=== PATIENT | male | born 1935 | race Caucasian/White ===

== ENCOUNTER 2016-11-29 07:40 | Day surgery (SDC) | payer MEDICARE ==
[~2016-11-29] VITALS: Ht 188 cm; Wt 93.2 kg
[~2016-11-29 07:40] MED LIST: ACAR100T PO; AMIT25TA9 PO; ATOR40TA16 PO; BYST10TA2 PO; DICL75TA PO; DIGO0.25 PO; FENO160T PO; FINA5TAB2 PO; FLUT1SPR5 EACH NARE; LISI-515 PO; LORA2TAB7 PO; MICO1POW14 TOPICAL; OMEP40CA2 PO; POTA10TA8 PO; TORS20TA PO; TRAZ100T4 PO; WARF-20 PO
[2016-11-29 08:13] VITALS: BP 160/72; PULSE 70; RESP 18; TEMP 97.9; O2SAT 94
[2016-11-29 08:26] LABS: AUTOMATED NEUTROPHIL # 5.9 TH/MM3 (1.8-7.7); BASOPHIL # 0.1 TH/MM3 (0-0.2); BASOPHIL % 1.1 % (0.0-2.0); EOSINOPHIL # 0.2 TH/MM3 (0-0.4); EOSINOPHIL % 2.4 % (0.0-4.0); HEMATOCRIT 38.7 % (39.0-51.0); HEMO FLAGS DIFF FINAL; LYMPH % 7.3 % (9.0-44.0); LYMPHOCYTE # 0.5 TH/MM3 (1.0-4.8); MEAN CELL VOLUME 83.9 FL (80.0-100.0); MEAN CORPUSCULAR HEMOGLOBIN 28.9 PG (27.0-34.0); MEAN CORPUSCULAR HGB CONC 34.5 % (32.0-36.0); MONO % 6.9 % (0.0-8.0); NEUT % 82.3 % (16.0-70.0); PLATELET COUNT 385 TH/MM3 (150-450); RED BLOOD COUNT 4.61 MIL/MM3 (4.50-5.90); RED CELL DISTRIBUTION WIDTH 14.9 % (11.6-17.2); WHITE BLOOD COUNT 7.2 TH/MM3 (4.0-11.0)
[2016-11-29] MEDS ORDERED: HYDR-3516 PO (08:26)
[2016-11-29] MEDS ORDERED: DULA0.5I SQ (08:26)
[2016-11-29] MEDS ORDERED: AZEL1POW (08:26)
[2016-11-29] MEDS ORDERED: AMOX500C PO (08:26)
[2016-11-29] MEDS ORDERED: VITA500030 CHEW (08:26)
[2016-11-29] MEDS ORDERED: FISHCAP4 PO (08:26)
[2016-11-29] MEDS ORDERED: VITA100T15 PO (08:26)
[2016-11-29] MEDS ORDERED: BACTOIN EACH NARE (08:26)
[2016-11-29] MEDS ORDERED: LACTATED RINGER'S 1000 ML IV PRN (08:30)
[2016-11-29] MEDS ORDERED: POVIDONE IODINE 5% (ANTISEPSIS KIT) 4 APPLICATIONS EACH NARE SCH (08:30)
[2016-11-29] MEDS ORDERED: CHLORHEXIDINE GLUCONATE 2 % 1 PACK (2 CLOTHS) TOPICAL SCH (08:30)
[2016-11-29] MEDS ORDERED: SODIUM CHLORID 0.9% 500 ML IV PRN (08:30)
[2016-11-29] MEDS ORDERED: ceFAZolin 2 GM PREMIX 50 ML IV SCH (08:30)
[2016-11-29] MEDS ORDERED: NS 1000 ML IV SCH (08:30)
[2016-11-29] MEDS ORDERED: VANCOMYCIN 1000 MG/NS 250 ML IV SCH ×2 (08:30)
[2016-11-29] MEDS ORDERED: MUPIROCIN 2% OINT 1 APPLIC/GM SYR NASAL SCH (08:30)
[2016-11-29] MEDS ORDERED: INSULIN HUMAN REGULAR 1,000 UNITS/10 ML VIAL SQ PRN (08:30)
[2016-11-29] MEDS ORDERED: METOPROLOL TARTRATE 25 MG TAB PO PRN (08:30)
[2016-11-29 08:33] LABS: APTT (PATIENT) 35.6 SEC (24.3-30.1); PROTHROMBIN TIME - PATIENT 22.9 SEC (9.8-11.6)
[2016-11-29] MEDS ORDERED: GLIP10TA6 PO (08:33)
[2016-11-29] MEDS ORDERED: PROPOFOL 200 MG/20 ML AMP IV ONE (10:40)
[2016-11-29] MEDS ORDERED: LIDOCAINE HCL 2% 50 ML VIAL ONE (10:42)
[2016-11-29] MEDS ORDERED: VANCOMYCIN 500 MG VIAL ONE (10:42)
[2016-11-29] MEDS ORDERED: MIDAZOLAM HCL 2 MG/2 ML VIAL ONE (10:49)
[2016-11-29] MEDS ORDERED: CEPH-460 PO (11:37)
[2016-11-29] MEDS ORDERED: ACETAMINOPHEN/CODEINE 300 MG/30 MG TAB PO PRN ×2 (11:45)
[2016-11-29] MEDS ORDERED: ONDANSETRON HCL 4 MG/2 ML VIAL IV PRN (11:45)
[2016-11-29] MEDS ORDERED: DO NOT ADM ANY ANTICOAGULANT DRUGS PRN (12:30)
--- NOTE | 2016-11-29 14:32 | EKG ---
Date Performed: 11/29/2016 Time Performed: 08:22:00 PTAGE: 81 years EKG: Pace ventricular rhythm with underlying atrial fibrillation No significant change since the prior tracing. Abnormal ECG PREVIOUS TRACING : 09/15/2015 11.07 DOCTOR: Sydnee Mills Interpretating Date/Time 11/29/2016 14:31:07
--- NOTE | 2016-11-30 19:12 | MP ---
cc: BLAKE ROSS M.D. DATE OF SURGERY 11/29/16 PROCEDURE Biventricular pacer defibrillator removal, biventricular pacer defibrillator replacement and device testing. HISTORY Mr. Sanon is an 81-year-old gentleman with congestive heart failure, cardiomyopathy, previous biventricular pacer defibrillator implanted 2010, generator currently end of life admitted for generator replacement and device testing. This is for secondary prevention. The patient has previous episode of ventricular tachycardia requiring defibrillatory shock. The risks, the nature and the benefit of the procedure are clearly stated to him. Risks include pneumothorax, cardiac perforation, stroke, need for open heart surgery and even . The patient understood and agreed to proceed. PROCEDURE IN DETAIL After written informed consent was obtained, the patient was brought to the EP lab where he was prepped and draped in the usual sterile fashion. Conscious sedation was initiated and maintained throughout the procedure by anesthesiologist. Once sedation verified, the left infraclavicular area was anesthetized with 2% Xylocaine. Using the plasma blade, a 3-cm incision was made over the existing generator. Dissection was then taken down to deep fascial layer using Bovie cautery and blunt dissection. Once exposed generator was removed from the pocket scar tissue was removed around the lead, pocket was expanded, pocket revision was performed. Then the lead was disconnected from the generator and tested. After adequate pacing threshold obtained, the pocket was copiously irrigated with antibiotic solution. The leads were connected to the new generator and placed into the pocket. I did proceed with device testing. Initial induction course of T-wave shock which induced ventricular fibrillation which was adequately detected and treated by the IC generator delivering a 20 joule defibrillatory shock converting the patient back into sinus rhythm. Shocking impedance was 42 ohms, charge time 3.4 seconds. At that point, NIPS was complete. I did proceed with wound closure. The deep fascial layer was approximated with 2-0 Vicryl suture in a continuous fashion. The subcutaneous layer was approximated using 2-0 Vicryl suture in a continuous fashion. The subcuticular layer was approximated using the 2-0 Vicryl suture in a continuous fashion. Dermabond adhesive was applied to the wound followed by a sterile pressure dressing. There was no complication. The patient tolerated procedure. Blood loss minimal. EXPLANTED HARDWARE The explanted biventricular pacer defibrillator is a [employer] model number #[id number], serial #[id number]. That was implanted in July 2011. IMPLANTED HARDWARE The implanted biventricular pacer defibrillator is a [employer] model number [id number]!. Serial #[id number]. THRESHOLD The right atrial pacing threshold in bipolar mode cannot be measured. The patient in atrial fibrillation, lead impedance 540 ohms, T-wave at 0.5 mV. The right ventricle pacing threshold bipolar mode was 0.75 volts at 0.5 milliseconds, lead impedance 450 ohms, R-wave at 12 mV. The left ventricular pacing threshold in bipolar mode was one volt at 0.5 milliseconds. Lead impedance 250 ohms. The right ventricular defibrillatory threshold less than or equal to 20 joules. Shocking impedance 42 ohms, charge time 3.4 seconds. SETTING The device set in VVIR 70, upper limit 110 beats per minute. LV first by 40 milliseconds. Defibrillatory portion for two zones one zone for ventricular tachycardia between 162-240 beats per minute. Atrial therapy consisted of one burst of ATP one ramp 81% pulse ___ followed by 20 then 30 and all subsequent shocks at 40 joule defibrillatory shock. Second zone for ventricular fibrillation above 240 beats per minute. First therapy at 30 and all subsequent shocks at 40 joule defibrillatory shock. CONCLUSION Successful biventricular pacer defibrillator removal, biventricular pacer defibrillator replacement and device testing, RECOMMENDATIONS The patient is going to be transferred to the telemetry unit. Will be observed. When stable can be discharged home. MD SARA White/ /11:33 AM /7:01 PM
[2017-01-07] MEDS ORDERED: GABA300C5 PO (10:53)
[2017-01-07] MEDS ORDERED: CLOB-23 TOPICAL (10:53)
== END 2016-11-29 13:24 | disposition home or self-care (01) ==
LOC: HDOC 07:40 → HDIC 07:41 → HDOC 13:24
PROVIDERS: ATTEND Internal Medicine Interventional Cardiology
DX: Z45.02 Encounter for adjustment and management of automatic implantable cardiac defibrillator (principal); I11.0 Hypertensive heart disease with heart failure; I50.30 Unspecified diastolic (congestive) heart failure; I49.5 Sick sinus syndrome; I48.0 Paroxysmal atrial fibrillation; I25.10 Atherosclerotic heart disease of native coronary artery without angina pectoris; E11.59 Type 2 diabetes mellitus with other circulatory complications; J44.9 Chronic obstructive pulmonary disease, unspecified; Z79.01 Long term (current) use of anticoagulants
CPT/HCPCS: 00530; 33264; 80048; 85025; 85610; 85730; 93005; 93641; C1882; J0690; J2250; J3010; J3370; J7050

== ENCOUNTER 2017-01-07 10:18 | Emergency (ER) | payer MEDICARE ==
[~2017-01-07] VITALS: Ht 188 cm; Wt 95.0 kg
[~2017-01-07 10:18] MED LIST changes: +AMOX500C PO; +AZEL1POW; +BACTOIN EACH NARE; +CEPH-460 PO; -DICL75TA PO; +DULA0.5I SQ; +FISHCAP4 PO; +GLIP10TA6 PO; +HYDR-3516 PO; -MICO1POW14 TOPICAL; +VITA100T15 PO; +VITA500030 CHEW
[2017-01-07 10:20] VITALS: BP 133/61; PULSE 70; RESP 22; TEMP 97.9; O2SAT 84
[2017-01-07] MEDS ORDERED: CLOB-23 TOPICAL ×2 (10:53)
[2017-01-07] MEDS ORDERED: GABA300C5 PO ×2 (10:53)
[2017-01-07 10:55] VITALS: RESP 18; O2SAT 98
[2017-01-07] MEDS ORDERED: SODIUM CHLORIDE 0.9% FLUSH 10 ML FLUSH IVF PRN (11:00)
--- NOTE | 2017-01-07 11:05 | PD ---
HPI Chief Complaint: Respiratory Symptoms Time Seen by Provider: 10:42 Travel History International Travel<30 days: No Contact w/Intl Traveler<30days: No Traveled to known affect area: No History of Present Illness HPI This patient complains of shortness of breath. He was having it yesterday. It is improved today. Symptoms severity mild to moderate. No chest pain or presyncopal symptoms. No defibrillator firing. He denies productive cough or fever or pleuritic pain. He wears 4 L of oxygen at night and a CPAP machine and uses oxygen during the day as needed. No alleviating factors. 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) Endocrine: Yes Gastrointestinal Disorders: No GERD: No Glaucoma: No Genitourinary: No Headaches: Yes Hepatitis: No Hiatal Hernia: No Hypertension: Yes Immune Disorder: No Implanted Vascular Access Dvce: Yes Kidney Stones: No Musculoskeletal: Yes Neurologic: Yes Psychiatric: Yes Reproductive: No Respiratory: Yes (COPD) Integumentary: Yes (RIGHT SECOND TOE INFECTION) Immunizations Current: No Migraines: No Radiation Therapy: No Renal Failure: No Seizures: No Sickle Cell Disease: No Sleep Apnea: Yes (CPAP AT NIGHT) Thyroid Disease: No Ulcer: No Past Surgical History Abdominal Surgery: Yes (HERNIA REPAIR) AICD: Yes Appendectomy: Yes Arteriovenous Shunt: No Body Medical Devices: KNEE REPLACEMENT LEFT AND RIGHT, AICD Cardiac Surgery: Yes (PACEMAKER) Cholecystectomy: Yes Ear Surgery: No Endocrine Surgery: No Eye Surgery: Yes (L & R EYE CATARACTS) Genitourinary Surgery: No Gynecologic Surgery: No Insulin Pump: No Joint Replacement: Yes (BILATERAL TKR) Neurologic Surgery: No Oral Surgery: No Pacemaker: Yes Thoracic Surgery: No Other Surgery: Yes Social History Alcohol Use: No Tobacco Use: No (QUIT IN AUGUST 2012) Substance Use: No Allergies-Medications (Allergen,Severity, Reaction): Coded Allergies: MRI PRECAUTION (Verified Allergy, Severe, 01/07/17) Reported Meds & Prescriptions Reported Meds & Active Scripts Active Reported Cormax Scalp Topical (Clobetasol Propionate) 0.05% Soln 1 Applic TOPICAL BID Gabapentin 300 Mg Cap 300 Mg PO TID Hydrocodone-Acetaminophen 5-325 mg Tab 2 Tab PO Q6H PRN Vitamin B12 (Cyanocobalamin) 100 Mcg Tab 100 Mcg PO DAILY Vitamin D3 (Cholecalciferol) 5,000 Unit Chew 5,000 Units CHEW DAILY Fish Oil + D3 (Fish Oil-Cholecalciferol) 1,200-1,000 Mg-Unit Cap 1 Cap PO DAILY Lorazepam 2 Mg Tab 2 Mg PO Q6H PRN Flonase Nasal Slade (Fluticasone Nasal Slade) 50 Mcg/Act Slade 100 Mcg EACH NARE BID Amitriptyline (Amitriptyline HCl) 25 Mg Tab 25 Mg PO QID Acarbose 100 Mg Tab 100 Mg PO BID Take with first bite of meal. Warfarin 4 Mg Tab 4 Mg PO DAILY Potassium Chloride CR (Potassium Chloride) 10 Meq Tab 20 Meq PO DAILY Omeprazole 40 Mg Cap 40 Mg PO BID Atorvastatin (Atorvastatin Calcium) 40 Mg Tab 40 Mg PO DAILY Fenofibrate 160 Mg Tab 160 Mg PO HS Torsemide 20 Mg Tab 20 Mg PO TID Digoxin 0.25 Mg Tab 0.25 Mg PO DAILY Lisinopril 20 Mg Tab 20 Mg PO DAILY Bystolic (Nebivolol) 10 Mg Tab 10 Mg PO BID Finasteride 5 Mg Tab 5 Mg PO HS Do not crush. Trazodone (Trazodone HCl) 100 Mg Tab 100 Mg PO HS Review of Systems General / Constitutional: No: Fever Eyes: No: Visual changes HENT: No: Headaches Cardiovascular: Positive: Edema, No: Chest Pain or Discomfort Respiratory: Positive: Shortness of Breath Gastrointestinal: No: Abdominal Pain Genitourinary: No: Dysuria Musculoskeletal: Positive: Edema, No: Pain Skin: No Rash Neurologic: No: Weakness Psychiatric: No: Depression Endocrine: No: Polydipsia Hematologic/Lymphatic: No: Easy Bruising Physical Exam Narrative GENERAL: Well-nourished, well-developed patient in no apparent distress. SKIN: Focused skin assessment reveals no rash and nodules. Skin is Warm and dry. HEAD: Atraumatic. Normocephalic. EYES: Pupils equal and round. No scleral icterus. No injection or drainage. ENT: No nasal bleeding or discharge. Mucous membranes pink and moist. NECK: Trachea midline. No JVD. CARDIOVASCULAR: Regular rate and rhythm. No murmur appreciated. RESPIRATORY: No accessory muscle use. Clear to auscultation. Breath sounds equal bilaterally. GASTROINTESTINAL: Abdomen soft, non-tender, nondistended. Hepatic and splenic margins not palpable. MUSCULOSKELETAL: No obvious deformities. No clubbing. No cyanosis. Trace symmetric edema the feet and ankles . NEUROLOGICAL: Awake and alert. No obvious cranial nerve deficits. Motor grossly within normal limits. Normal speech. PSYCHIATRIC: Appropriate mood and affect; insight and judgment normal. Data Data Last Documented VS Vital Signs Date Time Temp Pulse Resp B/P Pulse Ox O2 Delivery O2 Flow Rate FiO2 01/07/17 10:55 98 Nasal Cannula 2 01/07/17 10:55 18 01/07/17 10:31 73 01/07/17 10:20 97.9 133/61 Orders Complete Blood Count With Diff (01/07/17 10:52) Basic Metabolic Panel (Bmp) (01/07/17 10:52) Prothrombin Time / Inr (Pt) (01/07/17 10:52) Iv Access Insert/Monitor (01/07/17 10:52) Electrocardiogram (01/07/17 10:52) Ecg Monitoring (01/07/17 10:52) Oximetry (01/07/17 10:52) Oxygen Administration (01/07/17 10:52) Chest, Single Ap (01/07/17 10:52) Sodium Chloride 0.9% Flush (Ns Flush) (01/07/17 11:00) Furosemide Inj (Lasix Inj) (01/08/17 09:00) Labs Laboratory Tests Test 01/07/17 11:00 White Blood Count 5.5 TH/MM3 Red Blood Count 3.29 MIL/MM3 Hemoglobin 8.8 GM/DL Hematocrit 27.5 % Mean Corpuscular Volume 83.4 FL Mean Corpuscular Hemoglobin 26.8 PG Mean Corpuscular Hemoglobin 32.1 % Concent Red Cell Distribution Width 14.6 % Platelet Count 361 TH/MM3 Mean Platelet Volume 7.9 FL Neutrophils (%) (Auto) 83.3 % Lymphocytes (%) (Auto) 5.2 % Monocytes (%) (Auto) 8.6 % Eosinophils (%) (Auto) 1.9 % Basophils (%) (Auto) 1.0 % Neutrophils # (Auto) 4.6 TH/MM3 Lymphocytes # (Auto) 0.3 TH/MM3 Monocytes # (Auto) 0.5 TH/MM3 Eosinophils # (Auto) 0.1 TH/MM3 Basophils # (Auto) 0.1 TH/MM3 CBC Comment DIFF FINAL Differential Comment Prothrombin Time 17.4 SEC Prothromb Time International 1.5 RATIO Ratio Sodium Level 139 MEQ/L Potassium Level 4.4 MEQ/L Chloride Level 103 MEQ/L Carbon Dioxide Level 29.6 MEQ/L Anion Gap 6 MEQ/L Blood Urea Nitrogen 22 MG/DL Creatinine 1.30 MG/DL Estimat Glomerular Filtration 53 ML/MIN Rate Random Glucose 211 MG/DL Calcium Level 9.2 MG/DL [facility] Medical Decision Making Medical Screen Exam Complete: Yes Emergency Medical Condition: Yes Medical Record Reviewed: Yes Differential Diagnosis CHF, pneumonia, COPD Narrative Course I have reviewed the patient's electronic medical record. Reviewed his cardiology note from last month where he had his pacemaker and defibrillator changed out IV placed I reviewed his chest x-ray shows cardiomegaly and a hint of pulmonary vascular congestion I reviewed his EKG which shows paced rhythm without ectopy Extended cardiac monitoring reveals paced rhythm without ectopy CBC shows anemia with hemoglobin of 8.8 Metabolic profile is reasonably normal INR on Coumadin is 1.5 I gave him 60 millions IV Lasix Recommend he double his Lasix for 3 days then return to normal Limit intake He is clinically stable Saturations running 98% on his cannula Does not look dyspneic He denies melena or rectal bleeding We discussed his anemia and blood thinner and he should follow-up with his primary care for close follow-up and return if he develops any bleeding or black stool Diagnosis Primary Impression: Congestive heart failure Qualified Code: I50.23 - Acute on chronic systolic congestive heart failure Additional Impressions: Atrial fibrillation Qualified Code: I48.2 - Chronic atrial fibrillation Anemia Qualified Code: D64.9 - Anemia, unspecified type Additional Instructions: Double Lasix for 3 days then return to normal dosing Call primary care physician today for follow-up Discuss your anemia with your physician Med/Other Pt SpecificInfo: Other Disposition: 01 DISCHARGE HOME Condition: Stable Lele Goodrich MD January 07, 2017 11:05
[2017-01-07 11:07] LABS: AUTOMATED NEUTROPHIL # 4.6 TH/MM3 (1.8-7.7); BASOPHIL # 0.1 TH/MM3 (0-0.2); EOSINOPHIL # 0.1 TH/MM3 (0-0.4); EOSINOPHIL % 1.9 % (0.0-4.0); HEMATOCRIT 27.5 % (39.0-51.0); HEMO FLAGS DIFF FINAL; LYMPH % 5.2 % (9.0-44.0); LYMPHOCYTE # 0.3 TH/MM3 (1.0-4.8); MEAN CELL VOLUME 83.4 FL (80.0-100.0); MEAN CORPUSCULAR HEMOGLOBIN 26.8 PG (27.0-34.0); MEAN CORPUSCULAR HGB CONC 32.1 % (32.0-36.0); MONO % 8.6 % (0.0-8.0); NEUT % 83.3 % (16.0-70.0); PLATELET COUNT 361 TH/MM3 (150-450); RED BLOOD COUNT 3.29 MIL/MM3 (4.50-5.90); RED CELL DISTRIBUTION WIDTH 14.6 % (11.6-17.2); WHITE BLOOD COUNT 5.5 TH/MM3 (4.0-11.0)
[2017-01-07 11:18] LABS: INTERNATIONAL NORMALIZED RATIO 1.5 RATIO; PROTHROMBIN TIME - PATIENT 17.4 SEC (9.8-11.6)
--- NOTE | 2017-01-07 11:25 | RADRPT ---
EXAM DATE/TIME: 01/07/2017 10:55 [facility] COMPARISON: CHEST SINGLE AP, September 15, 2015, 10:19. INDICATIONS : Short of breath, sweeling in the lower extremities MEDICAL HISTORY : Chronic obstructive pulmonary disease. SURGICAL HISTORY : Pacemaker. defibrillator ENCOUNTER: Initial ACUITY: 1 day PAIN SCORE: 0/10 LOCATION: Bilateral chest FINDINGS: A single view of the chest demonstrates the lungs to be symmetrically with persistent increased inter stitial markings in the bases suggesting some degree of vascular congestion or volume overload. Heart size remains prominent. There is persistent and apparently chronic blunting of the costophrenic angl e with regional pleural thickening. Left subclavian bipolar pacer/defibrillator is radiographically i ntact. Osseous structures are intact. CONCLUSION: 1. Cardiomegaly with slight increased interstitial markings in the bases suggesting some degree of va scular congestion or volume overload. 2. Persistent regional pleural thickening/blunting of the left costophrenic angle. This is noted on m ultiple prior studies/reports and may be chronic. Kolton Gan MD on January 07, 2017 at 11:21 Board Certified Radiologist. This report was verified electronically.
[2017-01-07 11:26] LABS: BICARBONATE 29.6 MEQ/L (21.0-32.0); POTASSIUM 4.4 MEQ/L (3.5-5.1)
--- NOTE | 2017-01-07 20:53 | EKG ---
Date Performed: 01/07/2017 Time Performed: 10:35:42 PTAGE: 81 years EKG: ELECTRONIC VENTRICULAR PACEMAKER ABNORMAL RHYTHM ECG PREVIOUS TRACING : 11/29/2016 08.22 Compared to prior tracing no significant change DOCTOR: Boogie Morgan Interpretating Date/Time 01/07/2017 20:52:49
[2017-01-08] MEDS ORDERED: FUROSEMIDE 40 MG/4 ML VIAL IV PUSH SCH (09:00)
== END 2017-01-07 17:37 | disposition home or self-care (01) ==
LOC: NEPE 10:18
DX: I50.23 Acute on chronic systolic (congestive) heart failure (principal); I48.2 Chronic atrial fibrillation; D64.9 Anemia, unspecified; I11.0 Hypertensive heart disease with heart failure; I50.9 Heart failure, unspecified; I51.7 Cardiomegaly; E11.9 Type 2 diabetes mellitus without complications; Z96.653 Presence of artificial knee joint, bilateral; Z79.01 Long term (current) use of anticoagulants; Z95.0 Presence of cardiac pacemaker; Z99.81 Dependence on supplemental oxygen
CPT/HCPCS: 71010; 80048; 85025; 85610; 93005

== ENCOUNTER 2017-01-10 10:08 | Inpatient (IN) | payer MEDICARE ==
[~2017-01-10] VITALS: Ht 188 cm; Wt 95.9 kg
[2017-01-10] VITALS (8 sets, daily range): BP systolic 128–146; BP diastolic 59–72; PULSE 69–79; RESP 14–20; TEMP 97.4–97.8; O2SAT 85–99
[~2017-01-10 10:08] MED LIST changes: +CLOB-23 TOPICAL; +GABA300C5 PO
[2017-01-10] MEDS ORDERED: FURO1TAB60 PO (10:41)
[2017-01-10] MEDS ORDERED: FURO1TAB62 PO (10:41)
[2017-01-10] MEDS ORDERED: SODIUM CHLORIDE 0.9% FLUSH 10 ML FLUSH IVF PRN (11:15)
--- NOTE | 2017-01-10 11:17 | PD ---
HPI Chief Complaint: Respiratory Symptoms Time Seen by Provider: 11:14 Travel History International Travel<30 days: No Contact w/Intl Traveler<30days: No Traveled to known affect area: No History of Present Illness HPI 81-year-old male presents to the emergency department for evaluation of worsening shortness of breath. Patient was seen on Tuesday for the same. However, he states his symptoms are worsening despite doubling his Lasix. The patient states that he called his mds manager office, Dr. Galo, today who referred him back to the emergency department. He states that he is typically on 4 L O2 nasal cannula and CPAP at night, but does not usually wear oxygen during the day. However, since Tuesday, he has had to wear oxygen during the day. He states he becomes very short of breath with walking short distances. Patient does report history of pacemaker/defibrillator. He denies any firing of this. He does state that he would like to be checked out because he feels like it beats in different places, but has had these symptoms since he had the pacemaker placed. He states he has recently had his pacemaker checked out. Patient denies any fevers. He does report a cough. Patient reports history of COPD, hypertension, hyperlipidemia, diabetes. Patient states he does not know of a history of CHF, but is on Lasix. Patient states that his leg swelling has been worse lately, but is improved when he elevates his legs. He is on Coumadin. Patient's mds manager is Dr. Galo. Primary care physician is Dr. Moran. 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) Endocrine: Yes Gastrointestinal Disorders: No GERD: No Glaucoma: No Genitourinary: No Headaches: Yes Hepatitis: No Hiatal Hernia: No Hypertension: Yes Immune Disorder: No Implanted Vascular Access Dvce: Yes Kidney Stones: No Musculoskeletal: Yes Neurologic: Yes Psychiatric: Yes Reproductive: No Respiratory: Yes Integumentary: Yes (RIGHT SECOND TOE INFECTION) Immunizations Current: No Migraines: No Radiation Therapy: No Renal Failure: No Seizures: No Sickle Cell Disease: No Sleep Apnea: Yes (CPAP AT NIGHT) Thyroid Disease: No Ulcer: No Influenza Vaccination: Yes Past Surgical History Abdominal Surgery: Yes (HERNIA REPAIR) AICD: Yes Appendectomy: Yes Arteriovenous Shunt: No Body Medical Devices: KNEE REPLACEMENT LEFT AND RIGHT, AICD Cardiac Surgery: Yes (PACEMAKER) Cholecystectomy: Yes Ear Surgery: No Endocrine Surgery: No Eye Surgery: Yes (L & R EYE CATARACTS) Genitourinary Surgery: No Gynecologic Surgery: No Insulin Pump: No Joint Replacement: Yes (BILATERAL TKR) Neurologic Surgery: No Oral Surgery: No Pacemaker: Yes (REPLACED IN NOVEMBER ) Thoracic Surgery: No Other Surgery: Yes Social History Alcohol Use: No Tobacco Use: No Substance Use: No Allergies-Medications (Allergen,Severity, Reaction): Coded Allergies: MRI PRECAUTION (Verified Allergy, Severe, 01/07/17) Uncoded Allergies: STEROIDS (Adverse Reaction, Mild, 01/10/17) ELEVATED BLOOD SUGAR Reported Meds & Prescriptions Reported Meds & Active Scripts Active Reported Cormax Scalp Topical (Clobetasol Propionate) 0.05% Soln 1 Applic TOPICAL BID Gabapentin 300 Mg Cap 300 Mg PO TID Hydrocodone-Acetaminophen 5-325 mg Tab 2 Tab PO Q6H PRN Vitamin B12 (Cyanocobalamin) 100 Mcg Tab 100 Mcg PO DAILY Vitamin D3 (Cholecalciferol) 5,000 Unit Chew 5,000 Units CHEW DAILY Fish Oil + D3 (Fish Oil-Cholecalciferol) 1,200-1,000 Mg-Unit Cap 1 Cap PO DAILY Lorazepam 2 Mg Tab 2 Mg PO Q6H PRN Flonase Nasal [place] (Fluticasone Nasal [place]) 50 Mcg/Act [place] 100 Mcg EACH NARE BID Amitriptyline (Amitriptyline HCl) 25 Mg Tab 25 Mg PO QID Acarbose 100 Mg Tab 100 Mg PO BID Take with first bite of meal. Warfarin 4 Mg Tab 4 Mg PO DAILY Potassium Chloride CR (Potassium Chloride) 10 Meq Tab 20 Meq PO DAILY Omeprazole 40 Mg Cap 40 Mg PO BID Atorvastatin (Atorvastatin Calcium) 40 Mg Tab 40 Mg PO DAILY Fenofibrate 160 Mg Tab 160 Mg PO HS Torsemide 20 Mg Tab 20 Mg PO TID Digoxin 0.25 Mg Tab 0.25 Mg PO DAILY Lisinopril 20 Mg Tab 20 Mg PO DAILY Bystolic (Nebivolol) 10 Mg Tab 10 Mg PO BID Finasteride 5 Mg Tab 5 Mg PO HS Do not crush. Trazodone (Trazodone HCl) 100 Mg Tab 100 Mg PO HS Review of Systems Except as stated in HPI: all other systems reviewed are Neg Physical Exam Narrative GENERAL: Well-nourished, well-developed male patient, afebrile. SKIN: Focused skin assessment warm/dry. HEAD: Normocephalic. Atraumatic. EYES: No scleral icterus. No injection or drainage. NECK: Supple, trachea midline. No JVD or lymphadenopathy. CARDIOVASCULAR: Regular rate and rhythm without murmurs, gallops, or rubs. Bilateral radial and pedal pulses are 2+. RESPIRATORY: Breath sounds equal bilaterally. No accessory muscle use. Fine crackles noted in the bases. GASTROINTESTINAL: Abdomen soft, non-tender, nondistended. MUSCULOSKELETAL: No cyanosis, or edema. BACK: Nontender without obvious deformity. No CVA tenderness. Data Data Last Documented VS Vital Signs Date Time Temp Pulse Resp B/P Pulse Ox O2 Delivery O2 Flow Rate FiO2 01/10/17 11:27 97 Nasal Cannula 4 01/10/17 11:27 69 15 146/70 01/10/17 10:11 97.8 Orders Complete Blood Count With Diff (01/10/17 11:11) Basic Metabolic Panel (Bmp) (01/10/17 11:11) B-Type Natriuretic Peptide (01/10/17 11:11) Act Partial Throm Time (Ptt) (01/10/17 11:11) Prothrombin Time / Inr (Pt) (01/10/17 11:11) Magnesium (Mg) (01/10/17 11:11) Ckmb (Isoenzyme) Profile (01/10/17 11:11) Troponin I (01/10/17 11:11) Iv Access Insert/Monitor (01/10/17 11:11) Electrocardiogram (01/10/17 11:11) Ecg Monitoring (01/10/17 11:11) Oximetry (01/10/17 11:11) Oxygen Administration (01/10/17 11:11) Chest, Single Ap (01/10/17 11:11) Sodium Chloride 0.9% Flush (Ns Flush) (01/10/17 11:15) Blood Culture (01/10/17 12:19) Lactic Acid Sepsis Protocol (01/10/17 12:19) Ceftriaxone Inj (Rocephin Inj) (01/10/17 12:30) Azithromycin Inj (Zithromax Inj) (01/10/17 12:30) Labs Laboratory Tests Test 01/10/17 11:00 White Blood Count 5.3 TH/MM3 Red Blood Count 3.24 MIL/MM3 Hemoglobin 8.5 GM/DL Hematocrit 26.2 % Mean Corpuscular Volume 81.0 FL Mean Corpuscular Hemoglobin 26.4 PG Mean Corpuscular Hemoglobin 32.5 % Concent Red Cell Distribution Width 14.4 % Platelet Count 375 TH/MM3 Mean Platelet Volume 7.5 FL Neutrophils (%) (Auto) 82.9 % Lymphocytes (%) (Auto) 6.2 % Monocytes (%) (Auto) 8.1 % Eosinophils (%) (Auto) 2.0 % Basophils (%) (Auto) 0.8 % Neutrophils # (Auto) 4.4 TH/MM3 Lymphocytes # (Auto) 0.3 TH/MM3 Monocytes # (Auto) 0.4 TH/MM3 Eosinophils # (Auto) 0.1 TH/MM3 Basophils # (Auto) 0.0 TH/MM3 CBC Comment DIFF FINAL Differential Comment Prothrombin Time 16.7 SEC Prothromb Time International 1.5 RATIO Ratio Activated Partial 32.8 SEC Thromboplast Time Sodium Level 136 MEQ/L Potassium Level 4.1 MEQ/L Chloride Level 100 MEQ/L Carbon Dioxide Level 31.7 MEQ/L Anion Gap 4 MEQ/L Blood Urea Nitrogen 20 MG/DL Creatinine 1.40 MG/DL Estimat Glomerular Filtration 49 ML/MIN Rate Random Glucose 216 MG/DL Calcium Level 9.0 MG/DL Magnesium Level 1.9 MG/DL Total Creatine Kinase 65 U/L Troponin I LESS THAN 0.02 NG/ML B-Type Natriuretic Peptide 204 PG/ML MDM Medical Decision Making Medical Screen Exam Complete: Yes Emergency Medical Condition: Yes Medical Record Reviewed: Yes Interpretation(s) chest x-ray - FINDINGS: Pacemaker device is noted with control pack over the left chest. Stable mild perihilar and basilar parenchymal opacity, slightly worse on the right than the left. Cardiac contours are grossly stable. CONCLUSION: No significant change Differential Diagnosis COPD exacerbation versus CHF exacerbation versus pneumonia versus ACS Narrative Course 81-year-old male presents to the emergency department for evaluation of worsening shortness of breath since Tuesday. He states he double his Lasix as directed, the symptoms have worsened. He states he can only walk short distances due to becoming extremely short of breath. He states he is our oxygen during the day, which he did not used to do. EKG shows electronic ventricular pacemaker, heart rate 69. CBC, BMP, BNP, magnesium, CK, troponin, PTT, PT/INR, chest x-ray are ordered and pending. CBC shows anemia hemoglobin 8.5, hematocrit 26.2, this is decreased from a hemoglobin of 13.3, hematocrit 38.7 on November 29, 2016. BMP shows BUN 20, currently 1.40, glucose 216. BNP is 204. CK is 65. Troponin is less than 0.02. Magnesium is 1.9. PT/INR is 16.7/1.5. PTT is 32.8. Chest x-ray shows stable mild perihilar and basilar parenchymal opacity, slightly worse on the right than the left. I discussed the case and reviewed the chest x-ray with my attending physician, Dr. Escamilla, who believes the patient does have a pneumonia. Blood cultures 2 and lactic acid are ordered and pending. Patient is given Rocephin 1 g IV and azithromycin 500 mg IV. Due to decreased hemoglobin, rectal exam was completed which was negative for occult blood. This was done with the nurse at bedside. Patient will be admitted for shortness of breath/pneumonia. Residents are paged for admission. Dr. Estrella accepted admission. Diagnosis Primary Impression: Pneumonia Qualified Code: J18.9 - Pneumonia of both lower lobes due to infectious organism Additional Impression: COPD (chronic obstructive pulmonary disease) Qualified Code: J44.9 - Chronic obstructive pulmonary disease, unspecified COPD type Admitting Information Admitting Physician Requests: Admit Vandana Pizarro JS January 10, 2017 11:17
--- NOTE | 2017-01-10 11:33 | RADRPT ---
EXAM DATE/TIME: 01/10/2017 11:08 [place] COMPARISON: CHEST SINGLE AP, January 07, 2017, 10:55. INDICATIONS : Patient states chest pains. MEDICAL HISTORY : Hypertension. SURGICAL HISTORY : Pacemaker. ENCOUNTER: Initial ACUITY: 1 day PAIN SCORE: 0/10 LOCATION: Bilateral chest FINDINGS: Pacemaker device is noted with control pack over the left chest. Stable mild perihilar and basilar pa renchymal opacity, slightly worse on the right than the left. Cardiac contours are grossly stable. CONCLUSION: No significant change Garrett Sam MD on January 10, 2017 at 11:31 Board Certified Radiologist. This report was verified electronically.
[2017-01-10 11:34] LABS: AUTOMATED NEUTROPHIL # 4.4 TH/MM3 (1.8-7.7); BASOPHIL % 0.8 % (0.0-2.0); EOSINOPHIL # 0.1 TH/MM3 (0-0.4); HEMATOCRIT 26.2 % (39.0-51.0); HEMO FLAGS DIFF FINAL; LYMPH % 6.2 % (9.0-44.0); LYMPHOCYTE # 0.3 TH/MM3 (1.0-4.8); MEAN CORPUSCULAR HEMOGLOBIN 26.4 PG (27.0-34.0); MEAN CORPUSCULAR HGB CONC 32.5 % (32.0-36.0); MONO % 8.1 % (0.0-8.0); NEUT % 82.9 % (16.0-70.0); PLATELET COUNT 375 TH/MM3 (150-450); RED BLOOD COUNT 3.24 MIL/MM3 (4.50-5.90); RED CELL DISTRIBUTION WIDTH 14.4 % (11.6-17.2); WHITE BLOOD COUNT 5.3 TH/MM3 (4.0-11.0)
[2017-01-10 11:44] LABS: APTT (PATIENT) 32.8 SEC (24.3-30.1); INTERNATIONAL NORMALIZED RATIO 1.5 RATIO; PROTHROMBIN TIME - PATIENT 16.7 SEC (9.8-11.6)
[2017-01-10 11:48] LABS: ANION GAP 4 MEQ/L (5-15); BICARBONATE 31.7 MEQ/L (21.0-32.0); BLOOD UREA NITROGEN 20 MG/DL (7-18); CHLORIDE 100 MEQ/L (98-107); GLOMERULAR FILTRATION RATE 49 ML/MIN (>89); MAGNESIUM 1.9 MG/DL (1.5-2.5); POTASSIUM 4.1 MEQ/L (3.5-5.1); SODIUM (NA) 136 MEQ/L (136-145)
[2017-01-10 12:13] LABS: CREATINE KINASE 65 U/L (39-308)
[2017-01-10] MEDS ORDERED: AZITHROMYCIN INJ 500 MG in SODIUM CHLOR 0.9% 250 ML INJ 250 ML IV ONE (12:30)
[2017-01-10] MEDS ORDERED: cefTRIAXone INJ 1,000 MG in SODIUM CHLORIDE 0.9% INJ 100 ML IV ONE (12:30)
[2017-01-10] MEDS ORDERED: SODIUM CHLORIDE 0.9% FLUSH 10 ML FLUSH IV FLUSH SCH ×2 (13:00→21:00)
--- NOTE | 2017-01-10 13:27 | HHI.HP ---
[facility] Service Family Medicine Primary Care Physician Phyllis Moran MD Admission Diagnosis pneumonia, shortness of breath Diagnoses: International Travel<30 Days: No Contact w/Intl Traveler<30days: No Known Affected Area: No History of Present Illness This is an 81-year-old male with extensive past history significant for diabetes mellitus, hypertension, A. fib, COPD, and congestive heart failure. He is presenting because of continued shortness of breath. His symptoms started on 01/06/17. He normally uses 4 L nasal cannula at night as well as a CPAP, however lately his shortness of breath has been worsening to where he would need his oxygen during the day as well as night. He also starts to develop some lower extremity edema. He decided to go to the hospital on Tuesday01/07/17, was diagnosed with a mild case of acute on chronic congestive heart failure provided IV Lasix and his shortness of breath improved. After going home he doubled up on his by mouth Lasix and is no longer noticed any lower extremity edema. However he continued to be short of breath and requiring his oxygen during the day. He said today he was uses oxygen try taken off walk 10 steps and his O2 sat went from 95 to 70s. This greatly concerned him and he decided to come back to the hospital for further evaluation. He denies any fevers. He does admit to a cough and occasional sputum production. He denies any sick contacts other than the times that he has been to the ED. Of note for the last set of labs in the ED he has been anemic at 8.8 then 8.5. He denies any bloody or black stools. He is on warfarin chronically and his INR is 1.5. He does admit in the past having an episode of coughing that resulted in him coughing up some blood but this was many months ago and ate already followed up with his postage machine operator for this who said that he had busted blood vessel. (Angelito Estrella MD R2) Review of Systems Constitutional: COMPLAINS OF: Dizziness, DENIES: Fever, Weight gain, Weight loss, Change in appetite Endocrine: DENIES: Polyuria Eyes: COMPLAINS OF: Blurred vision (chronic), DENIES: Vision loss, Double Vision Ears, nose, mouth, throat: COMPLAINS OF: Tinnitus (chronic), Running Nose, DENIES: Throat pain, Hoarseness, Sinus Pain Respiratory: COMPLAINS OF: Cough, Hemoptysis, Shortness of breath, DENIES: Sputum production Cardiovascular: DENIES: Chest pain, Syncope, Lower Extremity Edema (had some) Gastrointestinal: DENIES: Abdominal pain, Black stools, Bloody stools, Nausea, Vomiting Genitourinary: DENIES: Urinary incontinence, Urgency Musculoskeletal: DENIES: Joint pain, Muscle aches, Joint Swelling, Back pain, Neck pain Integumentary: DENIES: Rash Hematologic/lymphatic: DENIES: Bruising Neurologic: DENIES: Abnormal gait, Headache, Seizures, Poor Balance Psychiatric: DENIES: Anxiety, Depression (Angelito Estrella MD R2) Past Family Social History Past Medical History Diabetes Mellitus HTN A fib COPD CHF Past Surgical History Appendectomy Cholecystectomy Pacemaker placement Reported Medications Reported Meds & Active Scripts Active Reported Cormax Scalp Topical (Clobetasol Propionate) 0.05% Soln 1 Applic TOPICAL BID Gabapentin 300 Mg Cap 300 Mg PO TID Hydrocodone-Acetaminophen 5-325 mg Tab 2 Tab PO Q6H PRN Vitamin B12 (Cyanocobalamin) 100 Mcg Tab 100 Mcg PO DAILY Vitamin D3 (Cholecalciferol) 5,000 Unit Chew 5,000 Units CHEW DAILY Fish Oil + D3 (Fish Oil-Cholecalciferol) 1,200-1,000 Mg-Unit Cap 1 Cap PO DAILY Lorazepam 2 Mg Tab 2 Mg PO Q6H PRN Flonase Nasal [place] (Fluticasone Nasal [place]) 50 Mcg/Act [place] 100 Mcg EACH NARE BID Amitriptyline (Amitriptyline HCl) 25 Mg Tab 25 Mg PO QID Acarbose 100 Mg Tab 100 Mg PO BID Take with first bite of meal. Warfarin 4 Mg Tab 4 Mg PO DAILY Potassium Chloride CR (Potassium Chloride) 10 Meq Tab 20 Meq PO DAILY Omeprazole 40 Mg Cap 40 Mg PO BID Atorvastatin (Atorvastatin Calcium) 40 Mg Tab 40 Mg PO DAILY Fenofibrate 160 Mg Tab 160 Mg PO HS Torsemide 20 Mg Tab 20 Mg PO TID Digoxin 0.25 Mg Tab 0.25 Mg PO DAILY Lisinopril 20 Mg Tab 20 Mg PO DAILY Bystolic (Nebivolol) 10 Mg Tab 10 Mg PO BID Finasteride 5 Mg Tab 5 Mg PO HS Do not crush. Trazodone (Trazodone HCl) 100 Mg Tab 100 Mg PO HS (Angelito Estrella MD R2) Allergies: Coded Allergies: MRI PRECAUTION (Verified Allergy, Severe, 01/07/17) Uncoded Allergies: STEROIDS (Adverse Reaction, Mild, 01/10/17) ELEVATED BLOOD SUGAR Family History noncontributory Social History Live in [place] in a mobile home with his No pets Raised 7 kids Worked for [employer] Smoked quit 20 year ago at least a pack a day when smoking Quite drinking 30 years ago Denies illicit drugs (Angelito Estrella MD R2) Physical Exam Vital Signs Vital Signs Date Time Temp Pulse Resp B/P Pulse Ox O2 Delivery O2 Flow Rate FiO2 01/10/17 11:27 97 Nasal Cannula 4 01/10/17 11:27 69 15 146/70 97 Nasal Cannula 4 01/10/17 10:29 16 96 Nasal Cannula 4 01/10/17 10:11 97.8 70 18 133/61 85 Physical Exam GENERAL: This is a well-nourished, well-developed patient, in no apparent distress. SKIN: No rashes, ecchymoses or lesions. Cool and dry. HEAD: Atraumatic. Normocephalic. No temporal or scalp tenderness. EYES: Pupils equal round and reactive. Extraocular motions intact. No scleral icterus. No injection or drainage. ENT: Nose without bleeding, purulent drainage or septal hematoma. Throat without erythema, tonsillar hypertrophy or exudate. Uvula midline. Airway patent. NECK: Trachea midline. No JVD or lymphadenopathy. Supple, nontender, no meningeal signs. CARDIOVASCULAR: Paced rate and rhythm with no murmurs rubs or gallops RESPIRATORY: Mild decrease breath sounds in the lower lobes. No sensory muscle use. Crackling in the bases. On 4 L nasal cannula GASTROINTESTINAL: Abdomen soft, non-tender, nondistended. No hepato-splenomegaly , or palpable masses. No guarding. MUSCULOSKELETAL: Extremities without clubbing, cyanosis, or edema. No joint tenderness, effusion. No edema noted. No calf tenderness. Negative Homans sign bilaterally. NEUROLOGICAL: Awake and alert. Cranial nerves II through XII grossly intact. Motor and sensory grossly within normal limits. Normal speech. Laboratory Laboratory Tests Test 01/10/17 11:00 White Blood Count 5.3 Red Blood Count 3.24 Hemoglobin 8.5 Hematocrit 26.2 Mean Corpuscular Volume 81.0 Mean Corpuscular Hemoglobin 26.4 Mean Corpuscular Hemoglobin 32.5 Concent Red Cell Distribution Width 14.4 Platelet Count 375 Mean Platelet Volume 7.5 Neutrophils (%) (Auto) 82.9 Lymphocytes (%) (Auto) 6.2 Monocytes (%) (Auto) 8.1 Eosinophils (%) (Auto) 2.0 Basophils (%) (Auto) 0.8 Neutrophils # (Auto) 4.4 Lymphocytes # (Auto) 0.3 Monocytes # (Auto) 0.4 Eosinophils # (Auto) 0.1 Basophils # (Auto) 0.0 CBC Comment DIFF FINAL Differential Comment Prothrombin Time 16.7 Prothromb Time International 1.5 Ratio Activated Partial 32.8 Thromboplast Time Sodium Level 136 Potassium Level 4.1 Chloride Level 100 Carbon Dioxide Level 31.7 Anion Gap 4 Blood Urea Nitrogen 20 Creatinine 1.40 Estimat Glomerular Filtration 49 Rate Random Glucose 216 Calcium Level 9.0 Magnesium Level 1.9 Total Creatine Kinase 65 Troponin I LESS THAN 0.02 B-Type Natriuretic Peptide 204 Date/Time Procedure Status Source Growth 01/10/17 12:40 Aerobic Blood Culture Received Blood Peripheral Pending 01/10/17 12:40 Anaerobic Blood Culture Received Blood Peripheral Pending (Angelito Estrella MD R2) Result Diagram: 01/10/17 1100 01/10/17 1100 Imaging Last Impressions Chest X-Ray 01/10/17 1111 Signed Impressions: Service Date/Time: Tuesday, January 10, 2017 11:08 - CONCLUSION: No significant change Garrett Sam MD (Angelito Estrella MD R2) Assessment and Plan Assessment and Plan This is an 81-year-old male with extensive past history significant for diabetes mellitus, hypertension, A. fib, COPD, and congestive heart failure. Being admitted for pneumonia versus CHF exacerbation Code Status Full code Discussed Condition With WDW: Dr. Austin (Angelito Estrella MD R2) Attending Attestation THIS CASE WAS DISCUSSED WITH THE RESIDENT PHYSICIANS. I HAVE REVIEWED THE RECORD AND AGREE WITH THE ABOVE NOTE AND PLAN OF CARE WAS DISCUSSED. I HAVE AUTHORIZED THE ORDER FOR ADMISSION TO AN IN-PATIENT STATUS. (Mina Austin MD) Problem List: (1) Diastolic CHF, acute on chronic Status: Acute Plan: Patient is unaware that he has congestive heart failure but he is on Lasix. Chest x-ray is consistent with congestive heart failure. He has a long- standing history of A. fib is possible source for developing congestive heart failure. * Admitted to inpatient * 2-D echo pending * Monitor I's and O's * Fluid restriction at 2 L * Lasix 40 mg IV * Potassium 20 mg by mouth twice a day * Digoxin 0.25 mg by mouth daily * Trending troponins, CK trending CK-MB, trending EKGs * Placed on telemetry (2) Pneumonia Status: Acute Plan: Checks x-ray is concerning for possible pneumonia * Ceftriaxone 1 g IV every 12 hours * Azithromycin from an milligrams by mouth every 24 hours * Albuterol 2.5 mg every 4 hours when necessary shortness of breath or wheezing * Duo nebs one ampule every 4 hours when necessary shortness of breath or wheezing * Blood cultures pending * CBC, BMP ordered for the a.m. (3) Diabetes Status: Chronic Plan: Long-standing history of type 2 diabetes. * Holding home medications * Blood glucose checks per protocol * Low-dose Insulin sliding scale (4) A-fib Status: Chronic Plan: Patient wants a history of A. fib. He is rate controlled with the pacemaker and defibrillator. * INR 1. 5 repeat INR for tomorrow * Warfarin 4 mg daily * Continue Nebivolol (5) Nutrition, metabolism, and development symptoms Status: Acute Plan: Diet: Diabetic diet Fluids: Adequate by mouth intake Monitor electrolytes and replace accordingly Vitals every 4 Placed on oxygen titrate accordingly Placed on telemetry Out of bed ad everardo. DVT prophylaxis with SCDs and heparin PT has been consulted CODE STATUS: Full code Disposition: Pending improvement of worsening shortness of breath (Angelito Estrella MD R2) Physician Certification 2 Midnight Certification Type: Admission for Inpatient Services Order for Inpatient Services The services are ordered in accordance with Medicare regulations or non- Medicare payer requirements, as applicable. In the case of services not specified as inpatient-only, they are appropriately provided as inpatient services in accordance with the 2-midnight benchmark. Estimated LOS (days): 3 days is the estimated time the patient will need to remain in the hospital, assuming treatment plan goals are met and no additional complications. Post-Hospital Plan: Home (Angelito Estrella MD R2) Problem Qualifiers (1) Pneumonia: Qualified Code: J18.9 - Pneumonia of both lower lobes due to infectious organism (2) Diabetes: Qualified Code: E11.8 - Type 2 diabetes mellitus with complication, without long-term current use of insulin (3) A-fib: Qualified Code: I48.2 - Chronic atrial fibrillation Angelito Estrella MD R2 January 10, 2017 13:27 Mina Austin MD January 11, 2017 17:53
[2017-01-10] MEDS ORDERED: SODIUM CHLORIDE 0.9% FLUSH 10 ML FLUSH IV FLUSH PRN (14:15)
[2017-01-10] MEDS ORDERED: RESP: ALBUTEROL 2.5 MG/IPRATROPIUM 0.5 MG NEB (PRN) INH (15:00)
[2017-01-10] MEDS ORDERED: ONDANSETRON HCL 4 MG/2 ML VIAL IV PRN (15:00)
[2017-01-10] MEDS: HEPARIN SODIUM - SQ 10,000 UNITS/ML VIAL SQ SCH (15:00)
[2017-01-10] MEDS ORDERED: RESP: ALBUTEROL 2.5 MG/3 ML NEB (PRN) NEB (15:00)
[2017-01-10] MEDS ORDERED: DEXTROSE 50% IN WATER 50 ML VIAL(D50) IV PRN (17:45)
[2017-01-10] MEDS ORDERED: GLUCAGON 1 MG/ML VIAL OTHER PRN (17:45)
[2017-01-10] MEDS: FUROSEMIDE 40 MG/4 ML VIAL IVP SCH (17:55)
[2017-01-10] MEDS: AMITRIPTYLINE HCL 25 MG TAB PO SCH ×2 (18:00→20:21)
[2017-01-10 19:13] LABS: HEMATOCRIT 26.2 % (39.0-51.0); REVIEW FLAG FINAL
[2017-01-10] MEDS: PANTOPRAZOLE SOD 40 MG DELAYED RELEASE TAB PO SCH (20:21)
[2017-01-10] MEDS: POTASSIUM CHLORIDE 20 MEQ CONTROLLED RELEASE TAB PO SCH (20:21)
[2017-01-10] MEDS ORDERED: FINASTERIDE 5 MG TAB PO SCH (21:00)
[2017-01-10] MEDS ORDERED: FENOFIBRATE 145 MG TAB PO SCH (21:00)
[2017-01-10] MEDS: SODIUM CHLORIDE 0.9% FLUSH 10 ML FLUSH IV FLUSH SCH (21:00)
[2017-01-10] MEDS: LORazepam 2 MG TAB PO PRN (21:41)
[2017-01-10] MEDS: ACETAMINOPHEN 325 MG TAB PO PRN (21:41)
[2017-01-10] MEDS: NEBIVOLOL 10 MG TAB PO SCH (21:42)
[2017-01-10] MEDS: INSULIN ASPART SUPPLEMENTAL SCALE SQ SCH (21:46)
[2017-01-11] VITALS: BP 127/56; PULSE 69; RESP 18; TEMP 97.8; O2SAT 99
[2017-01-11] MEDS: HEPARIN SODIUM - SQ 10,000 UNITS/ML VIAL SQ SCH ×3 (01:05→15:00)
[2017-01-11 04:00] VITALS: BP 134/72; PULSE 77; RESP 16; TEMP 97.7; O2SAT 100
[2017-01-11] MEDS: ACETAMINOPHEN 325 MG TAB PO PRN ×2 (05:22→08:04)
[2017-01-11] MEDS: INSULIN ASPART SUPPLEMENTAL SCALE SQ SCH ×3 (06:35→16:06)
[2017-01-11 08:00] VITALS: BP 152/71; PULSE 71; RESP 16; TEMP 97.8; O2SAT 98
[2017-01-11] MEDS: NEBIVOLOL 10 MG TAB PO SCH (08:02)
[2017-01-11] MEDS: SODIUM CHLORIDE 0.9% FLUSH 10 ML FLUSH IV FLUSH SCH (08:03)
[2017-01-11] MEDS: PANTOPRAZOLE SOD 40 MG DELAYED RELEASE TAB PO SCH (08:03)
[2017-01-11] MEDS: FUROSEMIDE 40 MG/4 ML VIAL IVP SCH (08:03)
[2017-01-11] MEDS: AMITRIPTYLINE HCL 25 MG TAB PO SCH (08:03)
[2017-01-11] MEDS: POTASSIUM CHLORIDE 20 MEQ CONTROLLED RELEASE TAB PO SCH (08:03)
[2017-01-11 08:53] LABS: AUTOMATED NEUTROPHIL # 4.2 TH/MM3 (1.8-7.7); BASOPHIL # 0.1 TH/MM3 (0-0.2); BASOPHIL % 1.2 % (0.0-2.0); EOSINOPHIL # 0.2 TH/MM3 (0-0.4); HEMATOCRIT 27.5 % (39.0-51.0); HEMO FLAGS DIFF FINAL; LYMPHOCYTE # 0.3 TH/MM3 (1.0-4.8); MEAN CELL VOLUME 81.3 FL (80.0-100.0); MEAN CORPUSCULAR HEMOGLOBIN 26.9 PG (27.0-34.0); MONO % 7.3 % (0.0-8.0); NEUT % 82.5 % (16.0-70.0); PLATELET COUNT 373 TH/MM3 (150-450); RED BLOOD COUNT 3.38 MIL/MM3 (4.50-5.90); RED CELL DISTRIBUTION WIDTH 14.7 % (11.6-17.2); WHITE BLOOD COUNT 5.1 TH/MM3 (4.0-11.0)
--- NOTE | 2017-01-11 08:55 | HHI.FPPN ---
Subjective Remarks FM Attending Note: Patient seen and examined. S: Chart and all resident physician notes reviewed. In summary this is a 81 year old male who was admitted with an admission diagnosis of Respiratory Complaint. This patient has a history of congestive heart failure and monitors his pulse oximetry at home. He notes that recently he has had lower oxygen saturations when walking and for this reason came to the hospital. No chest pain was noted or significant sensation of dyspnea. Patient denies orthopnea or paroxysmal nocturnal dyspnea. At the current time he feels that his breathing has normalized. Objective Vitals Vital Signs Date Time Temp Pulse Resp B/P Pulse Ox O2 Delivery O2 Flow Rate FiO2 01/11/17 08:00 97.8 71 16 152/71 98 01/11/17 04:00 97.7 77 16 134/72 100 01/11/17 00:00 97.8 69 18 127/56 99 01/10/17 22:17 72 01/10/17 20:00 97.4 70 20 128/60 99 01/10/17 17:00 79 01/10/17 16:50 97.5 70 20 144/72 99 01/10/17 16:08 69 15 97 Nasal Cannula 4 01/10/17 15:23 69 15 129/59 97 Nasal Cannula 4 01/10/17 13:47 69 14 132/72 97 Nasal Cannula 3 01/10/17 11:27 97 Nasal Cannula 4 01/10/17 11:27 69 15 146/70 97 Nasal Cannula 4 01/10/17 10:29 16 96 Nasal Cannula 4 01/10/17 10:11 97.8 70 18 133/61 85 I/O 01/10/17 01/10/17 01/10/17 01/11/17 01/11/17 01/11/17 06:59 14:59 22:59 06:59 14:59 22:59 Intake Total 2 ml 202 ml Output Total 1700 ml 900 ml Balance -1698 ml -698 ml Intake Oral 200 ml IV Total 2 ml 2 ml Output Urine Total 1700 ml 900 ml # Voids 4 # Bowel Movements 0 Result Diagram: 01/11/17 0755 01/10/17 1100 Other Results Item Value Date Time Magnesium Level 1.9 MG/DL 01/10/17 1100 Total Creatine Kinase 65 U/L 01/10/17 1100 Troponin I LESS THAN 0.02 NG/ML L 01/10/17 1100 B-Type Natriuretic Peptide 204 PG/ML H 01/10/17 1100 Troponin I LESS THAN 0.02 NG/ML L 01/10/17 1848 Troponin I 0.02 NG/ML 01/11/17 0755 Digoxin Level 0.9 NG/ML 01/11/17 0755 Imaging Last 48 hours Impressions Chest X-Ray 01/10/17 1111 Signed Impressions: Service Date/Time: Tuesday, January 10, 2017 11:08 - CONCLUSION: No significant change Garrett Sam MD Objective Remarks O. CONSTITUTIONAL/GEN: normally nourished, in NAD. EYES: conjunctiva normal, PERRLA, EOMI. ENT: Mouth and pharynx normal. NECK: thyroid midline, carotids symmetrical. No JVD. LUNGS: clear A-P, respiratory effort is normal. CARDIOVASCULAR: RR without murmur or gallop. No significant edema. GI/ABD: soft without masses, without organomegaly. NEURO: No focal deficits. SKIN: color normal, no rashes noted. HEME/LYMPH: no bruising, petechia or significant adenopathy MUSC: back is normal in appearance. Extremities are normal in appearance. PSYCH/MENTAL STATUS: Alert and oriented x 3. A/P Assessment and Plan This is an 81-year-old male with extensive past history significant for diabetes mellitus, hypertension, A. fib, COPD, and congestive heart failure. Being admitted for pneumonia versus CHF exacerbation Problem List: (1) Diastolic CHF, acute on chronic Status: Acute Plan: Patient is unaware that he has congestive heart failure but he is on Lasix. Chest x-ray is consistent with congestive heart failure. He has a long- standing history of A. fib is possible source for developing congestive heart failure. * Admitted to inpatient * 2-D echo pending * Monitor I's and O's * Fluid restriction at 2 L * Lasix 40 mg IV * Potassium 20 mg by mouth twice a day * Digoxin 0.25 mg by mouth daily * Trending troponins, CK trending CK-MB, trending EKGs * Placed on telemetry 01/11/17 This patient's BMP was only mildly elevated. His echocardiogram is pending. He does have some mild renal insufficiency so will decrease his dosage of digoxin to 0.125 mg daily and check a digoxin level. Will try to optimize medical treatment of congestive heart failure. (2) Pneumonia Status: Acute Plan: Checks x-ray is concerning for possible pneumonia * Ceftriaxone 1 g IV every 12 hours * Azithromycin from an milligrams by mouth every 24 hours * Albuterol 2.5 mg every 4 hours when necessary shortness of breath or wheezing * Duo nebs one ampule every 4 hours when necessary shortness of breath or wheezing * Blood cultures pending * CBC, BMP ordered for the a.m. (3) Diabetes Status: Chronic Plan: Long-standing history of type 2 diabetes. * Holding home medications * Blood glucose checks per protocol * Low-dose Insulin sliding scale 01/11/17 Will decrease the patient's dosage of amitriptyline. He notes he was only supposed to take 4 times a day dose for 3-4 days. 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 He notes that this is primarily numbness and does not perceive it as significant pain. (4) A-fib Status: Chronic Plan: Patient wants a history of A. fib. He is rate controlled with the pacemaker and defibrillator. * INR 1. 5 repeat INR for tomorrow * Warfarin 4 mg daily * Continue Nebivolol (5) Nutrition, metabolism, and development symptoms Status: Acute Plan: Diet: Diabetic diet Fluids: Adequate by mouth intake Monitor electrolytes and replace accordingly Vitals every 4 Placed on oxygen titrate accordingly Placed on telemetry Out of bed ad everardo. DVT prophylaxis with SCDs and heparin PT has been consulted CODE STATUS: Full code Disposition: Pending improvement of worsening shortness of breath Problem Qualifiers (1) Pneumonia: Qualified Code: J18.9 - Pneumonia of both lower lobes due to infectious organism (2) Diabetes: Qualified Code: E11.8 - Type 2 diabetes mellitus with complication, without long-term current use of insulin (3) A-fib: Qualified Code: I48.2 - Chronic atrial fibrillation Mina Austin MD January 11, 2017 08:55
[2017-01-11] MEDS ORDERED: DIGOXIN 0.125 MG TAB PO SCH (09:00)
[2017-01-11] MEDS ORDERED: DIGOXIN 0.25 MG TAB PO SCH (09:00)
[2017-01-11] MEDS ORDERED: ATORVASTATIN 40 MG TAB PO SCH (09:00)
[2017-01-11] MEDS ORDERED: LISINOPRIL 20 MG TAB PO SCH (09:00)
[2017-01-11 09:01] LABS: INTERNATIONAL NORMALIZED RATIO 1.4 RATIO; PROTHROMBIN TIME - PATIENT 16.2 SEC (9.8-11.6)
[2017-01-11 09:26] LABS: BICARBONATE 36.3 MEQ/L (21.0-32.0); POTASSIUM 4.2 MEQ/L (3.5-5.1)
[2017-01-11 09:54] VITALS: O2SAT 98
[2017-01-11] MEDS: LORazepam 2 MG TAB PO PRN (10:07)
[2017-01-11 12:00] VITALS: BP 133/63; PULSE 70; RESP 12; TEMP 97.4; O2SAT 96
[2017-01-11] MEDS ORDERED: AZITHROMYCIN 250 MG TAB PO SCH (13:00)
[2017-01-11] MEDS ORDERED: cefTRIAXone INJ 1,000 MG in SODIUM CHLORIDE 0.9% INJ 100 ML IV SCH (13:00)
[2017-01-11] MEDS ORDERED: DIGO0.12 PO (14:24)
[2017-01-11] MEDS ORDERED: AMIT25TA9 PO (14:24)
--- NOTE | 2017-01-11 14:25 | HHI.DCPOC ---
Discharge Care Plan Diagnosis: (1) Congestive heart failure (2) Pneumonia Goals to Promote Your Health * To prevent worsening of your condition and complications * To maintain your health at the optimal level Directions to Meet Your Goals Take your medications as prescribed Follow your dietary instruction Follow activity as directed Keep your appointments as scheduled Take your immunizations and boosters as scheduled If your symptoms worsen call your PCP, if no PCP go to Urgent Care Center or Emergency Room Smoking is Dangerous to Your Health. Avoid second hand smoke Call the 24-hour hour crisis hotline for domestic abuse at Angelique Denny MD R1 January 11, 2017 14:25
[2017-01-11] MEDS ORDERED: OXYGENTANK NAS.CANULA ×2 (14:28→15:33)
--- NOTE | 2017-01-11 15:20 | EKG ---
Date Performed: 01/10/2017 Time Performed: 10:32:22 PTAGE: 81 years EKG: ELECTRONIC VENTRICULAR PACEMAKER ABNORMAL RHYTHM ECG Compared to prior tracing no significa nt change PREVIOUS TRACING : 01/07/2017 10.35 DOCTOR: Washington Sargent Interpretating Date/Time 01/11/2017 15:19:16
--- NOTE | 2017-01-11 15:21 | EKG ---
Date Performed: 01/11/2017 Time Performed: 01:40:32 PTAGE: 81 years EKG: Ventricular pacing Pacemaker rhythm - no further analysis Abnormal ECG Compared to prior tr acing no significant change PREVIOUS TRACING : 01/10/2017 15.40 DOCTOR: Washington Sargent Interpretating Date/Time 01/11/2017 15:21:20
--- NOTE | 2017-01-11 15:21 | EKG ---
Date Performed: 01/10/2017 Time Performed: 15:40:07 PTAGE: 81 years EKG: ELECTRONIC VENTRICULAR PACEMAKER ABNORMAL RHYTHM ECG Compared to prior tracing no significa nt change PREVIOUS TRACING : 01/10/2017 10.32 DOCTOR: Washington Sargent Interpretating Date/Time 01/11/2017 15:20:36
[2017-01-11] MEDS ORDERED: WARFARIN SOD 4 MG TAB PO SCH (16:00)
--- NOTE | 2017-01-11 17:52 | EC ---
Study Study Date:01/11/2017 STUDY CONCLUSIONS SUMMARY - Left ventricle: The cavity size was mildly dilated. Wall thickness was increased in a pattern of mild LVH. Systolic function was normal. The estimated ejection fraction was 55%. Wall motion was normal; there were no regional wall motion abnormalities. - Aortic valve: Calcified annulus. Trileaflet; moderately thickened, mildly calcified leaflets. - Mitral valve: Calcified annulus. Mild regurgitation. - Left atrium: The atrium was dilated. - Right ventricle: The cavity size was dilated. Wall thickness was normal. RV lead present. - Right atrium: The atrium was dilated. - Atrial septum: There was a patent foramen ovale. - Tricuspid valve: Moderate regurgitation. - Pulmonary arteries: Systolic pressure was moderately increased. PA peak pressure: 65mm Hg (S). If LV function is below 40, please consider prescribing an ACEI or ARB or document rationale for non-use. PROCEDURE DATA STUDY STATUS: Elective. Procedure: Transthoracic echocardiography. Image quality was good. Scanning was performed from the parasternal, apical, and subcostal acoustic windows. Study completion: The patient tolerated the procedure well. Transthoracic echocardiography. M-mode, complete 2D, complete spectral Doppler, and color Doppler. Patient status: Inpatient. CARDIAC ANATOMY LEFT VENTRICLE: The cavity size was mildly dilated. Wall thickness was increased in a pattern of mild LVH. Systolic function was normal. The estimated ejection fraction was 55%. Wall motion was normal; there were no regional wall motion abnormalities. AORTIC VALVE: Calcified annulus. Trileaflet; moderately thickened, mildly calcified leaflets. Doppler: Transvalvular velocity was within the normal range. There was no stenosis. No regurgitation. AORTA: Aortic root: The aortic root was normal in size. MITRAL VALVE: Calcified annulus. Doppler: Transvalvular velocity was within the normal range. There was no evidence for stenosis. Mild regurgitation. LEFT ATRIUM: The atrium was dilated. ATRIAL SEPTUM: There was a patent foramen ovale. RIGHT VENTRICLE: The cavity size was dilated. Wall thickness was normal. RV lead present. PULMONIC VALVE: Doppler: Transvalvular velocity was within the normal range. There was no evidence for stenosis. No regurgitation. TRICUSPID VALVE: Structurally normal valve. Doppler: Transvalvular velocity was within the normal range. Moderate regurgitation. PULMONARY ARTERY: The main pulmonary artery was normal-sized. Systolic pressure was moderately increased. RIGHT ATRIUM: The atrium was dilated. PERICARDIUM: There was no pericardial effusion. SYSTEMIC VEINS: Inferior vena cava: The vessel was normal in size. BASIC MEASUREMENTS ADULT Normal Left ventricle LV internal dimension, ED, chordal level, *62.2 mm 43-52 PLAX LV internal dimension, ES, chordal level, *46.5 mm 23-38 PLAX Fractional shortening, chordal level, PLAX *25 % >29 LV posterior wall thickness, ED 12.5 mm IVS/LVPW ratio, ED 1.16 <1.3 Ventricular septum Septal thickness, ED 14.5 mm Aortic valve Leaflet separation 23 mm 15-26 Right ventricle RV internal dimension, ED, PLAX *41.6 mm 19-38 BASIC MEASUREMENTS ADULT Normal Aortic valve Leaflet separation 23 mm 15-26 Aorta Root diameter, ED *38 mm 20-37 Left atrium Anterior-posterior dimension, ES *69 mm 19-40 LA/aortic root ratio 1.82 DOPPLER MEASUREMENTS ADULT Normal Main pulmonary artery Pressure, S *65 mm Hg =30 Tricuspid valve Regurgitant peak velocity 371 cm/s Peak RV-RA gradient, S 55 mm Hg Maximal regurgitant velocity 371 cm/s Systemic veins Estimated CVP 10 mm Hg Right ventricle RV pressure, S *65 mm Hg <30 LEGEND: Mean values are shown as u=mean value. Asterisk (*) lovett values outside specified normal range. Madeline Keys [id number]
[2017-01-11] MEDS ORDERED: AMITRIPTYLINE HCL 25 MG TAB PO SCH (21:00)
== END 2017-01-11 16:43 | disposition home or self-care (01) | DRG 193 ==
LOC: NEPC 10:08 → NEDA 12:46 → N04B 16:13
PROVIDERS: ADMIT Family Medicine; ATTEND Family Medicine
DX: J18.9 Pneumonia, unspecified organism (principal); I50.33 Acute on chronic diastolic (congestive) heart failure; G62.9 Polyneuropathy, unspecified; J44.0 Chronic obstructive pulmonary disease with (acute) lower respiratory infection; I48.2 Chronic atrial fibrillation; Z99.81 Dependence on supplemental oxygen; E11.9 Type 2 diabetes mellitus without complications; D64.9 Anemia, unspecified; E78.5 Hyperlipidemia, unspecified; G47.30 Sleep apnea, unspecified; I11.0 Hypertensive heart disease with heart failure; J45.909 Unspecified asthma, uncomplicated; N28.9 Disorder of kidney and ureter, unspecified; H91.90 Unspecified hearing loss, unspecified ear; Z79.01 Long term (current) use of anticoagulants; Z95.0 Presence of cardiac pacemaker; Z96.653 Presence of artificial knee joint, bilateral
CPT/HCPCS: 71010; 80048; 80162; 82550; 82948; 83605; 83735; 83880; 84484; 85014; 85018; 85025; 85610; 85730; 87040; 93005; 93306; 94150; 94620; 99285; J0456; J0696; J1644; J1815; J1940; J7050

== ENCOUNTER 2017-01-25 13:09 | Inpatient (IN) | payer MEDICARE ==
[~2017-01-25] VITALS: Ht 188 cm; Wt 99.0 kg
[2017-01-25] VITALS (7 sets, daily range): BP systolic 121–151; BP diastolic 59–70; PULSE 69–81; RESP 17–20; TEMP 96.8–98.4; O2SAT 84–97
[~2017-01-25 13:09] MED LIST changes: -AMOX500C PO; -AZEL1POW; -BACTOIN EACH NARE; -CEPH-460 PO; +DIGO0.12 PO; -DIGO0.25 PO; -DULA0.5I SQ; -FENO160T PO; -GLIP10TA6 PO; +OXYGENTANK NAS.CANULA
[2017-01-25] MEDS ORDERED: AMOX500C PO (13:31)
[2017-01-25] MEDS ORDERED: PRED10 PO (13:31)
[2017-01-25] MEDS ORDERED: SODIUM CHLORIDE 0.9% FLUSH 10 ML FLUSH IVF PRN (13:45)
--- NOTE | 2017-01-25 13:47 | PD ---
HPI Chief Complaint: Respiratory Symptoms Time Seen by Provider: 13:23 Travel History International Travel<30 days: No Contact w/Intl Traveler<30days: No Traveled to known affect area: No History of Present Illness HPI Patient is an 81-year-old male with history of hypoxic ischemic encephalopathy, anemia, CHF, afib currently on coumadin, anxiety disorder, depression, presents to emergency room for evaluation of shortness of breath. He reports that he was admitted to the hospital 4 days ago and was discharged on 4 L of nasal cannula at all times. Patient follow up with his registered public surveyor Dr. conner yesterday and told him that he has been feeling short of breath on exertion, prescription for steroids as well as amoxicillin and nebulizer treatments at home. He has not started his nebulizer treatments at home as insurance has not approved the machine. Patient reports that he went to his primary care doctor' s office today, Dr. Moran and was told to come directly to the ER for admission to the hospital. As per Dr. Moran, patient had a pulse ox of 77% on oxygen (unknown how many liters patient was on) - patient reports that he is supposed to be on 2L but uses 4L instead. Reports concern as patient in the past only required oxygen at night. Patient was also sent to the ER for admission for workup of anemia as his hemoglobin was 8, reports that his baseline hemoglobin is 11 PFSH Past Medical History Hx Anticoagulant Therapy: Yes Arthritis: Yes (FEET, HANDS) Asthma: Yes Atrial Fibrillation: Yes Autoimmune Disease: No Blood Disorders: No Anxiety: Yes Depression: Yes Heart Rhythm Problems: Yes (ATRIAL FIB) Cancer: Yes (SKIN) Cardiovascular Problems: Yes High Cholesterol: Yes Chemotherapy: No Chest Pain: No Congestive Heart Failure: Yes COPD: Yes Cerebrovascular Accident: No Diabetes: Yes Patient Takes Glucophage: No 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) Endocrine: Yes Gastrointestinal Disorders: No GERD: No Glaucoma: No Genitourinary: No Headaches: Yes (R/T SINUSITIS) Hepatitis: No Hiatal Hernia: No Hypertension: Yes Immune Disorder: No Implanted Vascular Access Dvce: Yes Kidney Stones: No Musculoskeletal: Yes Neurologic: Yes Psychiatric: Yes Reproductive: No Respiratory: Yes Integumentary: Yes (RIGHT SECOND TOE INFECTION) Immunizations Current: No Migraines: No Radiation Therapy: No Renal Failure: No Seizures: No Sickle Cell Disease: No Sleep Apnea: Yes (CPAP AT NIGHT) Thyroid Disease: No Ulcer: No Past Surgical History Abdominal Surgery: Yes (HERNIA REPAIR) AICD: Yes Appendectomy: Yes Arteriovenous Shunt: No Body Medical Devices: KNEE REPLACEMENT LEFT AND RIGHT, AICD Cardiac Surgery: Yes (PACEMAKER) Cholecystectomy: Yes Ear Surgery: No Endocrine Surgery: No Eye Surgery: Yes (L & R EYE CATARACTS) Genitourinary Surgery: No Gynecologic Surgery: No Insulin Pump: No Joint Replacement: Yes (BILATERAL TKR) Neurologic Surgery: No Oral Surgery: No Pacemaker: Yes (REPLACED IN NOVEMBER ) Thoracic Surgery: No Other Surgery: Yes Social History Alcohol Use: No Tobacco Use: No Substance Use: No Allergies-Medications (Allergen,Severity, Reaction): Coded Allergies: MRI PRECAUTION (Verified Allergy, Severe, 01/07/17) Uncoded Allergies: STEROIDS (Adverse Reaction, Mild, 01/10/17) ELEVATED BLOOD SUGAR Reported Meds & Prescriptions Reported Meds & Active Scripts Active Oxygen tank (Oxygen) 1 Ea Tank 2 Liter JAKE.CANULA CONTINUOUS Oxygen Concentrator Portable Gaseous 2 L/min via Nasal Cannula Continuous For 99 months Amitriptyline (Amitriptyline HCl) 25 Mg Tab 25 Mg PO HS Digoxin 0.125 Mg Tab 0.125 Mg PO DAILY Reported Prednisone 10 Mg Tab 10 Mg PO DAILY Amoxicillin 500 Mg Cap 500 Mg PO BID Cormax Scalp Topical (Clobetasol Propionate) 0.05% Soln 1 Applic TOPICAL BID Gabapentin 300 Mg Cap 300 Mg PO TID Hydrocodone-Acetaminophen 5-325 mg Tab 2 Tab PO Q6H PRN Vitamin B12 (Cyanocobalamin) 100 Mcg Tab 100 Mcg PO DAILY Vitamin D3 (Cholecalciferol) 5,000 Unit Chew 5,000 Units CHEW DAILY Fish Oil + D3 (Fish Oil-Cholecalciferol) 1,200-1,000 Mg-Unit Cap 1 Cap PO DAILY Lorazepam 2 Mg Tab 2 Mg PO Q6H PRN Flonase Nasal [place] (Fluticasone Nasal [place]) 50 Mcg/Act [place] 100 Mcg EACH NARE BID Acarbose 100 Mg Tab 100 Mg PO BID Take with first bite of meal. Warfarin 4 Mg Tab 4 Mg PO DAILY Omeprazole 40 Mg Cap 40 Mg PO BID Atorvastatin (Atorvastatin Calcium) 40 Mg Tab 40 Mg PO DAILY Torsemide 20 Mg Tab 20 Mg PO TID Lisinopril 20 Mg Tab 20 Mg PO DAILY Bystolic (Nebivolol) 10 Mg Tab 10 Mg PO BID Finasteride 5 Mg Tab 5 Mg PO HS Do not crush. Review of Systems General / Constitutional: No: Fever Eyes: No: Visual changes HENT: No: Headaches Cardiovascular: No: Chest Pain or Discomfort Respiratory: Positive: Shortness of Breath Gastrointestinal: No: Abdominal Pain Genitourinary: No: Dysuria Musculoskeletal: No: Pain Skin: No Rash Neurologic: No: Weakness Psychiatric: No: Depression Endocrine: No: Polydipsia Hematologic/Lymphatic: No: Easy Bruising Physical Exam Narrative GENERAL: nad, nontoxic SKIN: Focused skin assessment warm/dry. HEAD: Atraumatic. Normocephalic. EYES: Pupils equal and round. No scleral icterus. No injection or drainage. ENT: No nasal bleeding or discharge. Mucous membranes pink and moist. NECK: Trachea midline. No JVD. CARDIOVASCULAR: Regular rate and rhythm. No murmur appreciated. RESPIRATORY: No accessory muscle use. Clear to auscultation. Breath sounds equal bilaterally. GASTROINTESTINAL: Abdomen soft, non-tender, nondistended. Hepatic and splenic margins not palpable. : patient with brown colored stool - HEME positive stool, no melana - exam performed with RN at bedside MUSCULOSKELETAL: No obvious deformities. No clubbing. No cyanosis. No edema. NEUROLOGICAL: Awake and alert. No obvious cranial nerve deficits. Motor grossly within normal limits. Normal speech. PSYCHIATRIC: Appropriate mood and affect; insight and judgment normal. Data Data Last Documented VS Vital Signs Date Time Temp Pulse Resp B/P Pulse Ox O2 Delivery O2 Flow Rate FiO2 01/25/17 13:46 94 Nasal Cannula 3 01/25/17 13:22 69 20 121/59 01/25/17 13:11 97.5 Orders Electrocardiogram (01/25/17 13:35) B-Type Natriuretic Peptide (01/25/17 13:35) Ckmb (Isoenzyme) Profile (01/25/17 13:35) Complete Blood Count With Diff (01/25/17 13:35) Comprehensive Metabolic Panel (01/25/17 13:35) Magnesium (Mg) (01/25/17 13:35) Prothrombin Time / Inr (Pt) (01/25/17 13:35) Act Partial Throm Time (Ptt) (01/25/17 13:35) Troponin I (01/25/17 13:35) Chest, Single Ap (01/25/17 13:35) Ecg Monitoring (01/25/17 13:35) Iv Access Insert/Monitor (01/25/17 13:35) Oximetry (01/25/17 13:35) Sodium Chloride 0.9% Flush (Ns Flush) (01/25/17 13:45) Arterial Blood Gas (Abg) (01/25/17 ) Type And Screen (01/25/17 13:35) Digoxin (01/25/17 13:39) Insulin Human Regular Inj (Novolin R Inj (01/25/17 15:00) Albuterol-Ipratropium Neb (Duoneb Neb) (01/25/17 15:00) Labs Laboratory Tests Test 01/25/17 01/25/17 13:40 14:03 White Blood Count 6.4 TH/MM3 Red Blood Count 3.68 MIL/MM3 Hemoglobin 9.3 GM/DL Hematocrit 29.3 % Mean Corpuscular Volume 79.7 FL Mean Corpuscular Hemoglobin 25.4 PG Mean Corpuscular Hemoglobin 31.8 % Concent Red Cell Distribution Width 16.1 % Platelet Count 358 TH/MM3 Mean Platelet Volume 8.3 FL Neutrophils (%) (Auto) 94.5 % Lymphocytes (%) (Auto) 2.6 % Monocytes (%) (Auto) 1.9 % Eosinophils (%) (Auto) 0.1 % Basophils (%) (Auto) 0.9 % Neutrophils # (Auto) 6.1 TH/MM3 Lymphocytes # (Auto) 0.2 TH/MM3 Monocytes # (Auto) 0.1 TH/MM3 Eosinophils # (Auto) 0.0 TH/MM3 Basophils # (Auto) 0.1 TH/MM3 CBC Comment DIFF FINAL Differential Comment Prothrombin Time 16.4 SEC Prothromb Time International 1.5 RATIO Ratio Activated Partial 30.9 SEC Thromboplast Time Sodium Level 137 MEQ/L Potassium Level 5.0 MEQ/L Chloride Level 95 MEQ/L Carbon Dioxide Level 34.7 MEQ/L Anion Gap 7 MEQ/L Blood Urea Nitrogen 40 MG/DL Creatinine 1.66 MG/DL Estimat Glomerular Filtration 40 ML/MIN Rate Random Glucose 453 MG/DL Calcium Level 9.1 MG/DL Magnesium Level 2.0 MG/DL Total Bilirubin 0.8 MG/DL Aspartate Amino Transf 10 U/L (AST/SGOT) Alanine Aminotransferase 13 U/L (ALT/SGPT) Alkaline Phosphatase 37 U/L Total Creatine Kinase 40 U/L Troponin I 0.02 NG/ML B-Type Natriuretic Peptide 269 PG/ML Total Protein 7.4 GM/DL Albumin 3.6 GM/DL Blood Type AB NEGATIVE Antibody Screen NEGATIVE Blood Bank Comment Blood Gas Puncture Site RT RADIAL Blood Gas Patient Temperature 98.6 Blood Gas HCO3 34 mmol/L Blood Gas Base Excess 8.8 mmol/L Blood Gas Oxygen Saturation 88 % Arterial Blood pH 7.41 Arterial Blood Partial 54 mmHg Pressure CO2 Arterial Blood Partial 65 mmHg Pressure O2 Arterial Blood Oxygen Content 10.8 Vol % Arterial Blood 2.7 % Carboxyhemoglobin Arterial Blood Methemoglobin 1.0 % Blood Gas Hemoglobin 8.6 G/DL Oxygen Delivery Device NASAL CANNULA Blood Gas Liter Flow 3 L/M Blood Gas Inspired Oxygen 32 % MDM Medical Decision Making Medical Screen Exam Complete: Yes Emergency Medical Condition: Yes Medical Record Reviewed: Yes Interpretation(s) Vital Signs Date Time Temp Pulse Resp B/P Pulse Ox O2 Delivery O2 Flow Rate FiO2 01/25/17 13:23 95 Nasal Cannula 4 01/25/17 13:22 69 20 121/59 95 Nasal Cannula 4 01/25/17 13:11 97.5 81 17 136/63 84 Nasal Cannula 4 Differential Diagnosis Anemia, electrolyte abnormality, GI bleed, CHF, COPD, pneumonia Narrative Course 81-year-old male who was sent to the emergency room by his primary care doctor for admission to the hospital for evaluation of 1) hypoxemia with a pulse ox of 77% on oxygen, 2) workup for gi bleed as hbg is 8 and baseline hgb is 11 Vital signs are currently stable at this time, patient denies sob at this time as he is currently on 4LNC, reports that he is more sob on exertion, ekg ordered as well as chest xray Patient also with HGB of 8.0 and heme positive stool on rectal exam - will type and screen and recheck hgb Previous inpatient records were reviewed, it appears that has been on 4 L nasal cannula during his full admission. Patient's pulse ox was initially 84% on 4 L , now he is 95% on 4L nasal cannula. I am unsure why there is a discrepancy between these numbers as there was no change in oxygen delivery method and flow rate Laboratory Tests Test 6/6/17 6/6/17 13:40 14:03 White Blood Count 6.4 TH/MM3 (4.0-11.0) Red Blood Count 3.68 MIL/MM3 (4.50-5.90) Hemoglobin 9.3 GM/DL (13.0-17.0) Hematocrit 29.3 % (39.0-51.0) Mean Corpuscular Volume 79.7 FL (80.0-100.0) Mean Corpuscular Hemoglobin 25.4 PG (27.0-34.0) Mean Corpuscular Hemoglobin 31.8 % Concent (32.0-36.0) Red Cell Distribution Width 16.1 % (11.6-17.2) Platelet Count 358 TH/MM3 (150-450) Mean Platelet Volume 8.3 FL (7.0-11.0) Neutrophils (%) (Auto) 94.5 % (16.0-70.0) Lymphocytes (%) (Auto) 2.6 % (9.0-44.0) Monocytes (%) (Auto) 1.9 % (0.0-8.0) Eosinophils (%) (Auto) 0.1 % (0.0-4.0) Basophils (%) (Auto) 0.9 % (0.0-2.0) Neutrophils # (Auto) 6.1 TH/MM3 (1.8-7.7) Lymphocytes # (Auto) 0.2 TH/MM3 (1.0-4.8) Monocytes # (Auto) 0.1 TH/MM3 (0-0.9) Eosinophils # (Auto) 0.0 TH/MM3 (0-0.4) Basophils # (Auto) 0.1 TH/MM3 (0-0.2) CBC Comment DIFF FINAL Differential Comment Prothrombin Time 16.4 SEC (9.8-11.6) Prothromb Time International 1.5 RATIO Ratio Activated Partial 30.9 SEC Thromboplast Time (24.3-30.1) Sodium Level 137 MEQ/L (136-145) Potassium Level 5.0 MEQ/L (3.5-5.1) Chloride Level 95 MEQ/L (98-107) Carbon Dioxide Level 34.7 MEQ/L (21.0-32.0) Anion Gap 7 MEQ/L (5-15) Blood Urea Nitrogen 40 MG/DL (7-18) Creatinine 1.66 MG/DL (0.60-1.30) Estimat Glomerular Filtration 40 ML/MIN (>89) Rate Random Glucose 453 MG/DL (74-106) Calcium Level 9.1 MG/DL (8.5-10.1) Magnesium Level 2.0 MG/DL (1.5-2.5) Total Bilirubin 0.8 MG/DL (0.2-1.0) Aspartate Amino Transf 10 U/L (15-37) (AST/SGOT) Alanine Aminotransferase 13 U/L (12-78) (ALT/SGPT) Alkaline Phosphatase 37 U/L (45-117) Total Creatine Kinase 40 U/L (39-308) Troponin I 0.02 NG/ML (0.02-0.05) B-Type Natriuretic Peptide 269 PG/ML (0-100) Total Protein 7.4 GM/DL (6.4-8.2) Albumin 3.6 GM/DL (3.4-5.0) Blood Type AB NEGATIVE Antibody Screen NEGATIVE Blood Bank Comment Blood Gas Puncture Site RT RADIAL Blood Gas Patient Temperature 98.6 Blood Gas HCO3 34 mmol/L (22-26) Blood Gas Base Excess 8.8 mmol/L (-2-2) Blood Gas Oxygen Saturation 88 % (90-100) Arterial Blood pH 7.41 (7.380-7.420) Arterial Blood Partial 54 mmHg (38-42) Pressure CO2 Arterial Blood Partial 65 mmHg Pressure O2 (61-120) Arterial Blood Oxygen Content 10.8 Vol % (12.0-20.0) Arterial Blood 2.7 % (0-4) Carboxyhemoglobin Arterial Blood Methemoglobin 1.0 % (0-2) Blood Gas Hemoglobin 8.6 G/DL (12.0-16.0) Oxygen Delivery Device NASAL CANNULA Blood Gas Liter Flow 3 L/M Blood Gas Inspired Oxygen 32 % Last Impressions Chest X-Ray 01/25/17 7905 Signed Impressions: Service Date/Time: Wednesday, January 25, 2017 13:39 - CONCLUSION: 1. Small bilateral effusions and cardiomegaly suggesting some degree of congestive failure. Exam is unchanged compared to previous. Shabbir Melendez MD Case reviewed with , patient's pcp, reports concern as patient's pulse was 77%on 2L NC, reports concern as he was never on oxygen and now requires 4L NC at all times, reports that his registered public surveyor placed him on steroids to optimize his treatments - this may be a reason why his BS are elevated at this time. She is also concerned with pt's anemia, as HGB always 11 and now was 8 at discharge. She is upset that patient did not have neb treatments or thorough treatment. Plan to readmit to [facility] service case reviewed with Dr. Bell who accepts pt to service Diagnosis Primary Impression: Hypoxemia Additional Impressions: Congestive heart failure Qualified Code: I50.21 - Acute systolic congestive heart failure Anemia Qualified Code: D64.9 - Anemia, unspecified type GI bleed Qualified Code: K92.2 - Gastrointestinal hemorrhage, unspecified gastrointestinal hemorrhage type Renal insufficiency Hyperglycemia Admitting Information Admitting Physician Requests: Meeta Wasserman DO Jan 25, 2017 13:47
[2017-01-25 14:03] LABS: AUTOMATED NEUTROPHIL # 6.1 TH/MM3 (1.8-7.7); BASOPHIL # 0.1 TH/MM3 (0-0.2); BASOPHIL % 0.9 % (0.0-2.0); EOSINOPHIL % 0.1 % (0.0-4.0); HEMATOCRIT 29.3 % (39.0-51.0); HEMO FLAGS DIFF FINAL; LYMPH % 2.6 % (9.0-44.0); LYMPHOCYTE # 0.2 TH/MM3 (1.0-4.8); MEAN CELL VOLUME 79.7 FL (80.0-100.0); MEAN CORPUSCULAR HEMOGLOBIN 25.4 PG (27.0-34.0); MEAN CORPUSCULAR HGB CONC 31.8 % (32.0-36.0); MONO % 1.9 % (0.0-8.0); NEUT % 94.5 % (16.0-70.0); PLATELET COUNT 358 TH/MM3 (150-450); RED BLOOD COUNT 3.68 MIL/MM3 (4.50-5.90); RED CELL DISTRIBUTION WIDTH 16.1 % (11.6-17.2); WHITE BLOOD COUNT 6.4 TH/MM3 (4.0-11.0)
--- NOTE | 2017-01-25 14:13 | RADRPT ---
EXAM DATE/TIME: 01/25/2017 13:39 [facility] COMPARISON: CHEST SINGLE AP, January 10, 2017, 11:08. INDICATIONS : Short of breath MEDICAL HISTORY : Hypertension. Cardiovascular disease. SURGICAL HISTORY : Pacemaker. ENCOUNTER: Initial ACUITY: 2 weeks PAIN SCORE: 0/10 LOCATION: Bilateral chest FINDINGS: Heart is mildly enlarged. There are bilateral effusions. The effusion on the left is slightly larger than the right. There consolidative changes in the lung bases. There is a transvenous pacer in good p osition. Direct comparison is made to a prior 01/10/17. The exam is stable. The bony structures are grossly intact. CONCLUSION: 1. Small bilateral effusions and cardiomegaly suggesting some degree of congestive failure. Exam is u nchanged compared to previous. Shabbir Melendez MD on January 25, 2017 at 14:10 Board Certified Radiologist. This report was verified electronically.
[2017-01-25 14:16] LABS: APTT (PATIENT) 30.9 SEC (24.3-30.1); INTERNATIONAL NORMALIZED RATIO 1.5 RATIO; PROTHROMBIN TIME - PATIENT 16.4 SEC (9.8-11.6)
[2017-01-25 14:18] LABS: BLOOD GAS BASE EXCESS 8.8 mmol/L (-2-2); BLOOD GAS CARBOXYHEMOGLOBIN 2.7 % (0-4); BLOOD GAS HCO3 34 mmol/L (22-26); BLOOD GAS O2 HGB SATURATION 88 % (90-100); BLOOD GAS OXYGEN CONTENT 10.8 Vol % (12.0-20.0); BLOOD GAS PCO2 54 mmHg (38-42); BLOOD GAS PO2 65 mmHg (61-120); BLOOD GAS TOTAL HGB 8.6 G/DL (12.0-16.0); TEMP CORR TO 98.6
[2017-01-25 14:20] LABS: DRAW SITE RT RADIAL; FIO2 32 %; LITER FLOW 3 L/M; NUMBER OF ARTERIAL PUNCTURES 1; OXYGEN DEVICE NASAL CANNULA; STAT YES; ULNAR PULSE PRESENT
[2017-01-25 14:28] LABS: ALKALINE PHOSPHATASE 37 U/L (45-117); ALT (GPT) 13 U/L (12-78); ANION GAP 7 MEQ/L (5-15); AST (GOT) 10 U/L (15-37); BICARBONATE 34.7 MEQ/L (21.0-32.0); BLOOD UREA NITROGEN 40 MG/DL (7-18); CHLORIDE 95 MEQ/L (98-107); GLOMERULAR FILTRATION RATE 40 ML/MIN (>89); SODIUM (NA) 137 MEQ/L (136-145); TOTAL BILIRUBIN ADULT 0.8 MG/DL (0.2-1.0)
[2017-01-25 14:30] LABS: CREATINE KINASE 40 U/L (39-308)
[2017-01-25 14:35] LABS: CRITICAL VALUE YES
[2017-01-25] MEDS ORDERED: INSULIN HUMAN REGULAR 1,000 UNITS/10 ML VIAL SQ ONE (15:00)
[2017-01-25] MEDS: RESP: ALBUTEROL 2.5 MG/IPRATROPIUM 0.5 MG NEB (SCH) INH ×2 (15:43→15:44)
[2017-01-25] MEDS ORDERED: BISACODYL 10 MG SUPP RECTAL PRN (16:00)
[2017-01-25] MEDS ORDERED: ONDANSETRON HCL 4 MG/2 ML VIAL IVP PRN (16:00)
[2017-01-25] MEDS ORDERED: NALOXONE HCL 0.4 MG/ML AMP IV PRN (16:00)
[2017-01-25] MEDS ORDERED: SODIUM CHLORIDE 0.9% FLUSH 10 ML FLUSH IV FLUSH PRN (16:00)
[2017-01-25] MEDS ORDERED: SENNOSIDES 8.6 MG TAB PO PRN (16:00)
[2017-01-25] MEDS ORDERED: MAGNESIUM HYDROXIDE SUSP 30 ML CUP PO PRN (16:00)
[2017-01-25] MEDS ORDERED: LACTULOSE SYRUP 20 GM/30 ML CUP PO PRN (16:00)
--- NOTE | 2017-01-25 16:29 | PD.CONS ---
HPI History of Present Illness This is a 81 year old [male] who presented to ER today for SOB despite O2. Last had EGD and colonoscopy 5 year, findings include colon polyps. Denies being told he's had varices or bleeding ulcers. Denies blood in stool, tarry stool, n/v, abdominal pain. he takes coumadin, last had yesterday. HE has an AICD. (Noemy Chavis) PFSH Past Medical History DM need for pacemaker Past Surgical History insertion AICD appendectomy bilat knee replacement (Noemy Chavis) Coded Allergies: MRI PRECAUTION (Verified Allergy, Severe, 01/07/17) Uncoded Allergies: STEROIDS (Adverse Reaction, Mild, 01/10/17) ELEVATED BLOOD SUGAR Family History unk Social History no etoh no tobacco no drugs (Noemy Chavis) Review of Systems Constitutional: DENIES: Fever Eyes: DENIES: Blurred vision Ears, nose, mouth, throat: DENIES: Hearing loss Respiratory: DENIES: Hemoptysis Cardiovascular: DENIES: Chest pain Gastrointestinal: DENIES: Abdominal pain, Black stools, Bloody stools, Constipation, Diarrhea, Nausea, Vomiting, Hematemesis Genitourinary: DENIES: Hematuria Musculoskeletal: DENIES: Muscle aches Integumentary: DENIES: Jaundice Hematologic/lymphatic: COMPLAINS OF: Bruising Neurologic: COMPLAINS OF: Abnormal gait (says he doesnt walk well b/c his knees bother him) Psychiatric: DENIES: Confusion (Noemy Chavis) GI Exam Vitals I&O Vital Signs Date Time Temp Pulse Resp B/P Pulse Ox O2 Delivery O2 Flow Rate FiO2 01/25/17 15:15 93 Nasal Cannula 2.00 01/25/17 13:46 94 Nasal Cannula 3 01/25/17 13:23 95 Nasal Cannula 4 01/25/17 13:22 69 20 121/59 95 Nasal Cannula 4 01/25/17 13:11 97.5 81 17 136/63 84 Nasal Cannula 4 Imaging Last Impressions Chest X-Ray 01/25/17 1335 Signed Impressions: Service Date/Time: Wednesday, January 25, 2017 13:39 - CONCLUSION: 1. Small bilateral effusions and cardiomegaly suggesting some degree of congestive failure. Exam is unchanged compared to previous. Shabbir Melendez MD Laboratory Test 01/25/17 01/25/17 13:40 14:03 White Blood Count 6.4 TH/MM3 Red Blood Count 3.68 MIL/MM3 Hemoglobin 9.3 GM/DL Hematocrit 29.3 % Mean Corpuscular Volume 79.7 FL Mean Corpuscular Hemoglobin 25.4 PG Mean Corpuscular Hemoglobin 31.8 % Concent Red Cell Distribution Width 16.1 % Platelet Count 358 TH/MM3 Mean Platelet Volume 8.3 FL Neutrophils (%) (Auto) 94.5 % Lymphocytes (%) (Auto) 2.6 % Monocytes (%) (Auto) 1.9 % Eosinophils (%) (Auto) 0.1 % Basophils (%) (Auto) 0.9 % Neutrophils # (Auto) 6.1 TH/MM3 Lymphocytes # (Auto) 0.2 TH/MM3 Monocytes # (Auto) 0.1 TH/MM3 Eosinophils # (Auto) 0.0 TH/MM3 Basophils # (Auto) 0.1 TH/MM3 CBC Comment DIFF FINAL Differential Comment Prothrombin Time 16.4 SEC Prothromb Time International 1.5 RATIO Ratio Activated Partial 30.9 SEC Thromboplast Time Sodium Level 137 MEQ/L Potassium Level 5.0 MEQ/L Chloride Level 95 MEQ/L Carbon Dioxide Level 34.7 MEQ/L Anion Gap 7 MEQ/L Blood Urea Nitrogen 40 MG/DL Creatinine 1.66 MG/DL Estimat Glomerular Filtration 40 ML/MIN Rate Random Glucose 453 MG/DL Calcium Level 9.1 MG/DL Magnesium Level 2.0 MG/DL Total Bilirubin 0.8 MG/DL Aspartate Amino Transf 10 U/L (AST/SGOT) Alanine Aminotransferase 13 U/L (ALT/SGPT) Alkaline Phosphatase 37 U/L Total Creatine Kinase 40 U/L Troponin I 0.02 NG/ML B-Type Natriuretic Peptide 269 PG/ML Total Protein 7.4 GM/DL Albumin 3.6 GM/DL Blood Type AB NEGATIVE Antibody Screen NEGATIVE Blood Bank Comment Blood Gas Puncture Site RT RADIAL Blood Gas Patient Temperature 98.6 Blood Gas HCO3 34 mmol/L Blood Gas Base Excess 8.8 mmol/L Blood Gas Oxygen Saturation 88 % Arterial Blood pH 7.41 Arterial Blood Partial 54 mmHg Pressure CO2 Arterial Blood Partial 65 mmHg Pressure O2 Arterial Blood Oxygen Content 10.8 Vol % Arterial Blood 2.7 % Carboxyhemoglobin Arterial Blood Methemoglobin 1.0 % Blood Gas Hemoglobin 8.6 G/DL Oxygen Delivery Device NASAL CANNULA Blood Gas Liter Flow 3 L/M Blood Gas Inspired Oxygen 32 % Physical Examination HEENT:EOMI; normocephalic; atraumatic; no jaundice. CHEST: wheezes CARDIAC: RRR ABDOMEN: Soft, nondistended, nontender; no hepatosplenomegaly; bowel sounds are present in all four quadrants. EXTREMITIES: No clubbing, cyanosis, or edema. SKIN: Normal; no rash; no jaundice. TRACK FITTER: No focal deficits; alert and oriented times three. (Noemy Chavis) Assessment and Plan Plan ASSESSMENT - anemia - Hgb 9.3 on admission. heme + stool. Pt admitted for SOB, hypoxia, found to have elevated blood sugar. Pt denies melena, hematochezia, hematemesis. last had EGD/colonoscopy maybe 5 y ago. PLAN - EGD/colonoscopy tomorrow - obtain consents - GoLytely - clears today - NPO after midnight - monitor HH - supportive care - further recommendations to follow THis pt seen by myself and Dr Zurita and this note is written on his behalf ( Noemy Chavis) Physician Comments Agree with the plan as above, will proceed with EGD and Colonoscopy in AM. ( Kalani Zurita MD) Noemy Chavis Jan 25, 2017 16:29 Kalani Zurita MD Jan 25, 2017 17:32
[2017-01-25] MEDS ORDERED: PEG (High)/E-LYTE SOLN 4000 ML BTL PO ONE (17:15)
[2017-01-25] MEDS ORDERED: RESP: ALBUTEROL 2.5 MG/IPRATROPIUM 0.5 MG NEB (PRN) NEB ×2 (17:45→18:00)
[2017-01-25] MEDS ORDERED: DEXTROSE 50% IN WATER 50 ML VIAL(D50) IV PRN ×2 (17:45→18:00)
[2017-01-25] MEDS ORDERED: GLUCAGON 1 MG/ML VIAL OTHER PRN ×2 (17:45→18:00)
--- NOTE | 2017-01-25 17:56 | HHI.HP ---
[facility] Primary Care Physician Phyllis Moran MD Admission Diagnosis Hypoxia, GI bleed Diagnoses: (1) COPD (chronic obstructive pulmonary disease) (2) Hypoxemia Chief Complaint: Shortness of breath Travel History International Travel<30 Days: No Contact w/Intl Traveler <30 Da: No Traveled to Known Affected Are: No History of Present Illness Written by Carolina Pacheco, acting as scribe for Dr. Bell on 01/25/17 at 17:34. Mr. Sanon is an 81-year-old male patient with a known history of atrial fibrillation on Coumadin, type 2 diabetes mellitus, chronic obstructive pulmonary disease, hypertension, mild congestive heart failure, anxiety and depression who presented to the ED with complaints of increasing shortness of breath for several days. Patient states that he usually uses 2 L home O2 strictly at night with CPAP but for the past few days he has required 4 L O2 quite consistently. Per records, patient presented to the ED on 01/07/17 and for similar complaints of increasing shortness of breath and increasing lower extremity edema. At that time, patient was given Lasix for diagnosed acute on chronic heart failure with improvements seen in his breathing. Since then patient has been seen increasing requirements of his home O2. Patient saw his assistant in nursing, Dr. galo, yesterday and was prescribed steroid taper, amoxicillin and nebulizer treatments. Patient states he started the steroids today with significant improvement seen in his shortness of breath since yesterday. Patient denies any recent fever, chills, chest pain, palpitations, abdominal pain, nausea, vomiting or dysuria. Also denies any recent diarrhea or blood in stool. Patient's PCP is Dr. Moran, who has been concerned about his downward trend in his hemoglobin the past couple months. Patient's usual baseline hemoglobin is 13, with today's presentation of 9.3. Patient states that he does take warfarin with therapeutic INR. Patient states last colonoscopy was greater than five years ago and he doesn't remember who his GI is. Review of Systems Respiratory: COMPLAINS OF: Shortness of breath Cardiovascular: COMPLAINS OF: Lower Extremity Edema Except as stated in HPI: all other systems reviewed are Neg Past Family Social History Past Medical History Type 2 diabetes mellitus Atrial fibrillation, on Coumadin Hypertension Anxiety Depression Ischemic encephalopathy Arthritis Chronic obstructive pulmonary disease Skin cancer Past Surgical History AICD placement Hernia repair Appendectomy Bilateral knee repair Bilateral cataracts Reported Medications Active Oxygen tank (Oxygen) 1 Ea Tank 2 Liter JAKE.CANULA CONTINUOUS Oxygen Concentrator Portable Gaseous 2 L/min via Nasal Cannula Continuous For 99 months Amitriptyline (Amitriptyline HCl) 25 Mg Tab 25 Mg PO HS Digoxin 0.125 Mg Tab 0.125 Mg PO DAILY Reported Prednisone 10 Mg Tab 10 Mg PO DAILY Amoxicillin 500 Mg Cap 500 Mg PO BID Cormax Scalp Topical (Clobetasol Propionate) 0.05% Soln 1 Applic TOPICAL BID Gabapentin 300 Mg Cap 300 Mg PO TID Hydrocodone-Acetaminophen 5-325 mg Tab 2 Tab PO Q6H PRN Vitamin B12 (Cyanocobalamin) 100 Mcg Tab 100 Mcg PO DAILY Vitamin D3 (Cholecalciferol) 5,000 Unit Chew 5,000 Units CHEW DAILY Fish Oil + D3 (Fish Oil-Cholecalciferol) 1,200-1,000 Mg-Unit Cap 1 Cap PO DAILY Lorazepam 2 Mg Tab 2 Mg PO Q6H PRN Flonase Nasal [place] (Fluticasone Nasal [place]) 50 Mcg/Act [place] 100 Mcg EACH NARE BID Acarbose 100 Mg Tab 100 Mg PO BID Take with first bite of meal. Warfarin 4 Mg Tab 4 Mg PO DAILY Omeprazole 40 Mg Cap 40 Mg PO BID Atorvastatin (Atorvastatin Calcium) 40 Mg Tab 40 Mg PO DAILY Torsemide 20 Mg Tab 20 Mg PO TID Lisinopril 20 Mg Tab 20 Mg PO DAILY Bystolic (Nebivolol) 10 Mg Tab 10 Mg PO BID Finasteride 5 Mg Tab 5 Mg PO HS Do not crush. Allergies: Coded Allergies: MRI PRECAUTION (Verified Allergy, Severe, 01/07/17) Uncoded Allergies: STEROIDS (Adverse Reaction, Mild, 01/10/17) ELEVATED BLOOD SUGAR Active Ordered Medications Current Medications Medications (Trade) Dose Ordered Sig/Faviola Route Start Time Stop Time Status Last Admin (NS Flush) 2 ml UNSCH PRN IV FLUSH 01/25/17 16:00 (NS Flush) 2 ml BID IV FLUSH 01/25/17 21:00 (Zofran Inj) 4 mg Q6H PRN IVP 01/25/17 16:00 (Narcan Inj) 0.4 mg UNSCH PRN IV 01/25/17 16:00 (Helene-Colace) 1 tab BID PO 01/25/17 21:00 (Milk Of Magnesia Liq) 30 ml Q12H PRN PO 01/25/17 16:00 (Senokot) 17.2 mg Q12H PRN PO 01/25/17 16:00 (Dulcolax Supp) 10 mg DAILY PRN RECTAL 01/25/17 16:00 (Lactulose Liq) 30 ml DAILY PRN PO 01/25/17 16:00 (Colyte Liq) 4,000 ml ONCE ONCE PO 01/25/17 17:15 01/25/17 17:16 UNV Family History Maternal family medical history includes diabetes mellitus. Patient states he does not remember his father's medical history. Social History Patient states that he quit smoking twenty years ago. Prior to that he smoked one half packs per day for forty years. Denies any current alcohol abuse, states that he quit drinking twenty-five years ago. Denies any illicit drug use. Physical Exam Vital Signs Vital Signs Date Time Temp Pulse Resp B/P Pulse Ox O2 Delivery O2 Flow Rate FiO2 01/25/17 15:15 93 Nasal Cannula 2.00 01/25/17 13:46 94 Nasal Cannula 3 01/25/17 13:23 95 Nasal Cannula 4 01/25/17 13:22 69 20 121/59 95 Nasal Cannula 4 01/25/17 13:11 97.5 81 17 136/63 84 Nasal Cannula 4 Physical Exam GENERAL: Well-nourished, well-developed patient, in no apparent distress. SKIN: Warm and dry. Bilateral ecchymosis on upper extremities. Trace edema in bilateral lower extremities. HEENT: Atraumatic. Normocephalic. No temporal or scalp tenderness. Pupils equal round and reactive. Extraocular motions intact. No scleral icterus. Nose without bleeding. Airway patent. NECK: Trachea midline. No JVD or lymphadenopathy. Supple. CARDIOVASCULAR: Irregular irregular rhythm, controlled rate. No murmur appreciated. RESPIRATORY: Diminished breath sounds throughout. No wheezes GASTROINTESTINAL: Abdomen soft, non-tender, nondistended. No guarding. Midline healed scar noted, prior hernia repair. MUSCULOSKELETAL: Extremities without edema. No joint tenderness, effusion, or edema noted. No calf tenderness. Negative Homans sign bilaterally. NEUROLOGICAL: Awake and alert. Cranial nerves II through XII intact. Motor and sensory grossly within normal limits. Five out of 5 muscle strength in all muscle groups. Normal speech. Laboratory Laboratory Tests Test 01/25/17 01/25/17 13:40 14:03 White Blood Count 6.4 Red Blood Count 3.68 Hemoglobin 9.3 Hematocrit 29.3 Mean Corpuscular Volume 79.7 Mean Corpuscular Hemoglobin 25.4 Mean Corpuscular Hemoglobin 31.8 Concent Red Cell Distribution Width 16.1 Platelet Count 358 Mean Platelet Volume 8.3 Neutrophils (%) (Auto) 94.5 Lymphocytes (%) (Auto) 2.6 Monocytes (%) (Auto) 1.9 Eosinophils (%) (Auto) 0.1 Basophils (%) (Auto) 0.9 Neutrophils # (Auto) 6.1 Lymphocytes # (Auto) 0.2 Monocytes # (Auto) 0.1 Eosinophils # (Auto) 0.0 Basophils # (Auto) 0.1 CBC Comment DIFF FINAL Differential Comment Prothrombin Time 16.4 Prothromb Time International 1.5 Ratio Activated Partial 30.9 Thromboplast Time Sodium Level 137 Potassium Level 5.0 Chloride Level 95 Carbon Dioxide Level 34.7 Anion Gap 7 Blood Urea Nitrogen 40 Creatinine 1.66 Estimat Glomerular Filtration 40 Rate Random Glucose 453 Calcium Level 9.1 Magnesium Level 2.0 Total Bilirubin 0.8 Aspartate Amino Transf 10 (AST/SGOT) Alanine Aminotransferase 13 (ALT/SGPT) Alkaline Phosphatase 37 Total Creatine Kinase 40 Troponin I 0.02 B-Type Natriuretic Peptide 269 Total Protein 7.4 Albumin 3.6 Blood Type AB NEGATIVE Antibody Screen NEGATIVE Blood Bank Comment Blood Gas Puncture Site RT RADIAL Blood Gas Patient Temperature 98.6 Blood Gas HCO3 34 Blood Gas Base Excess 8.8 Blood Gas Oxygen Saturation 88 Arterial Blood pH 7.41 Arterial Blood Partial 54 Pressure CO2 Arterial Blood Partial 65 Pressure O2 Arterial Blood Oxygen Content 10.8 Arterial Blood 2.7 Carboxyhemoglobin Arterial Blood Methemoglobin 1.0 Blood Gas Hemoglobin 8.6 Oxygen Delivery Device NASAL CANNULA Blood Gas Liter Flow 3 Blood Gas Inspired Oxygen 32 Result Diagram: 01/25/17 1340 01/25/17 1340 Imaging Last Impressions Chest X-Ray 01/25/17 1335 Signed Impressions: Service Date/Time: Wednesday, January 25, 2017 13:39 - CONCLUSION: 1. Small bilateral effusions and cardiomegaly suggesting some degree of congestive failure. Exam is unchanged compared to previous. Shabbir Melendez MD Assessment and Plan Assessment and Plan Mr. Sanon is an 81-year-old male patient with a known history of atrial fibrillation on Coumadin, type 2 diabetes mellitus, chronic obstructive pulmonary disease, hypertension, anxiety and depression who presented to the ED with complaints of increasing shortness of breath for several days. Chronic obstructive pulmonary disease exacerbation, acute on chronic - Consult pulmonology, Dr. Galo, appreciate input. - Supplemental oxygen to keep O2 between 89-92%. - Solu-Medrol 40 mg IV every 6 hours. - Duo nebs scheduled every 6 hours hour and every 4 hours when necessary wheezing. Microcytic hypochromic anemia, acute - Baseline hemoglobin is roughly around 13. Patient presented today with hemoglobin of 9.3. Denies any signs or symptoms of bleeding. Denies any recent hematochezia or melena. Last colonoscopy greater than five years ago. Hemoccult positive. - Consulted GI, appreciate input. Patient seen by GI [facility]. Plan for EGD/ colonoscopy tomorrow. Prep patient tonight with GoLYTELY. Start patient on clear liquid diet for tonight. Nothing by mouth after midnight. Monitor H&H. Repeat CBC in am. Follow. Start Protonix. Diastolic congestive heart failure, chronic - Chest x-ray reviewed, small bilateral effusions and cardiomegaly suggesting some degree of congestive failure. - BNP 269 on presentation. Trace lower extremity edema. No wheezing. - 2-D echocardiogram reviewed from 01/11/17, ejection fraction 55%. Left ventricle cavity size mildly due to dilated. Mild LVH. Systolic function normal. - Monitor intake and output closely. Monitor for overload. Acute kidney injury - Creatinine on presentation 1.66. Repeat BMP in am. Follow. - Gentle hydration, NS 42 ml/hr. Monitor for overload. Atrial fibrillation, chronic - Continuous cardiac telemetry. Therapeutic INR 1.5. Repeat INR tomorrow. Continue Nebivolol 10 mg PO BID. Type 2 diabetes mellitus, chronic Hyperglycemia - Presenting blood sugar 453. Patient given Novolin 10 units sq x 1 in ED. Will give levemir 10 units at bedtime and adjust insulin regimen as pt on steroids. - Accu-Cheks before meals and at bedtime. Place patient on sliding scale insulin, covering as needed. Tight blood sugar control. Monitor closely. - hold Acarbose from home medication list due to renal function - Hemoglobin A1c ordered and pending. Follow. Hypertension, chronic: Controlled at this time. Hold lisinopril for now due to increased creatinine. Monitor. on Nebivolol. hydralazine and clonidine prn. Other chronic medical conditions include dyslipidemia and BPH and are stable at this time. Continue home medications as indicated. Monitor. GI Prophylaxis: Protonix 40 mg IV BID. DVT prophylaxis: SCDs/TEDs. Written by Carolina Pacheco, acting as scribe for Dr. Bell on 01/25/17 at 17:34. This note was transcribed by scribe Carolina Pacheco. I, Dr. Amparo Bell personally performed the history, physical exam, and medical decision making; and confirmed the accuracy of the information in the transcribed note. Authenticated by Dr. Amparo Bell on 01/25/17 at 17:34. Code Status Full code Discussed Condition With Patient, ER physician Carolina Pacheco Jan 25, 2017 17:56 Amparo Bell MD Jan 25, 2017 18:41
[2017-01-25] MEDS ORDERED: SODIUM CHLOR 0.9% 1000 ML INJ 1,000 ML IV SCH (18:00)
[2017-01-25] MEDS ORDERED: methylPREDNISolone SOD SUCC 40 MG/1 ML VIAL IV PUSH SCH (18:00)
[2017-01-25] MEDS: methylPREDNISolone SOD SUCC 40 MG/1 ML VIAL IV PUSH SCH (18:20)
[2017-01-25] MEDS: SODIUM CHLORIDE 0.9% FLUSH 10 ML FLUSH IV FLUSH SCH (19:55)
[2017-01-25] MEDS: RESP: ALBUTEROL 2.5 MG/IPRATROPIUM 0.5 MG NEB (SCH) NEB (20:45)
[2017-01-25] MEDS ORDERED: [UNRECOGNIZED DRUG - OTHER] PO SCH (21:00)
[2017-01-25] MEDS ORDERED: ACARBOSE 100 MG PO SCH (21:00)
[2017-01-25] MEDS ORDERED: INSULIN ASPART SUPPLEMENTAL SCALE SQ SCH (21:00)
[2017-01-25] MEDS ORDERED: cloNIDine HCL 0.1 MG TAB PO PRN (21:15)
[2017-01-25] MEDS: PANTOPRAZOLE SODIUM 40 MG VIAL IV PUSH SCH (21:15)
[2017-01-25] MEDS: NEBIVOLOL 10 MG TAB PO SCH (21:15)
[2017-01-25] MEDS ORDERED: hydrALAZINE HCL 10 MG TAB PO PRN (21:15)
[2017-01-25] MEDS: DOCUSATE SODIUM 50 MG/SENNA 8.6 MG TAB PO SCH (21:16)
[2017-01-25] MEDS: LORazepam 2 MG TAB PO PRN (21:16)
[2017-01-25] MEDS: AMITRIPTYLINE HCL 25 MG TAB PO SCH (21:16)
[2017-01-25] MEDS: FINASTERIDE 5 MG TAB PO SCH (21:16)
[2017-01-25] MEDS: INSULIN DETEMIR 100 UNITS/ML VIAL SQ SCH (21:17)
[2017-01-25] MEDS: INSULIN ASPART SUPPLEMENTAL SCALE SQ SCH (21:18)
[2017-01-25] MEDS ORDERED: RESP: ALBUTEROL 2.5 MG/IPRATROPIUM 0.5 MG NEB (SCH) NEB (22:00)
[2017-01-26] VITALS (12 sets, daily range): BP systolic 120–142; BP diastolic 58–68; PULSE 69–72; RESP 16–20; TEMP 96.1–98.5; O2SAT 87–98
[2017-01-26] MEDS: methylPREDNISolone SOD SUCC 40 MG/1 ML VIAL IV PUSH SCH ×4 (00:38→21:15)
[2017-01-26] MEDS: RESP: ALBUTEROL 2.5 MG/IPRATROPIUM 0.5 MG NEB (SCH) NEB ×4 (03:15→21:23)
[2017-01-26 05:32] LABS: AUTOMATED NEUTROPHIL # 5.4 TH/MM3 (1.8-7.7); BASOPHIL % 0.3 % (0.0-2.0); HEMATOCRIT 27.6 % (39.0-51.0); HEMO FLAGS DIFF FINAL; LYMPH % 2.7 % (9.0-44.0); LYMPHOCYTE # 0.2 TH/MM3 (1.0-4.8); MEAN CELL VOLUME 79.7 FL (80.0-100.0); MEAN CORPUSCULAR HEMOGLOBIN 24.8 PG (27.0-34.0); MEAN CORPUSCULAR HGB CONC 31.2 % (32.0-36.0); MONO % 1.4 % (0.0-8.0); NEUT % 95.6 % (16.0-70.0); PLATELET COUNT 316 TH/MM3 (150-450); RED BLOOD COUNT 3.46 MIL/MM3 (4.50-5.90); RED CELL DISTRIBUTION WIDTH 16.2 % (11.6-17.2); WHITE BLOOD COUNT 5.6 TH/MM3 (4.0-11.0)
[2017-01-26 06:06] LABS: BICARBONATE 36.3 MEQ/L (21.0-32.0); POTASSIUM 4.1 MEQ/L (3.5-5.1)
[2017-01-26] MEDS: INSULIN ASPART SUPPLEMENTAL SCALE SQ SCH ×4 (06:29→21:06)
[2017-01-26] MEDS: DIGOXIN 0.125 MG TAB PO SCH (08:43)
[2017-01-26] MEDS: GABAPENTIN 300 MG CAP PO SCH ×3 (08:43→17:55)
[2017-01-26] MEDS: DOCUSATE SODIUM 50 MG/SENNA 8.6 MG TAB PO SCH ×2 (08:43→21:03)
[2017-01-26] MEDS: NEBIVOLOL 10 MG TAB PO SCH ×2 (08:43→21:03)
[2017-01-26] MEDS: CYANOCOBALAMIN 100 MCG TAB PO SCH (08:43)
[2017-01-26] MEDS: PANTOPRAZOLE SODIUM 40 MG VIAL IV PUSH SCH ×2 (08:43→21:02)
[2017-01-26] MEDS: ATORVASTATIN 40 MG TAB PO SCH (08:43)
[2017-01-26] MEDS: SODIUM CHLORIDE 0.9% FLUSH 10 ML FLUSH IV FLUSH SCH ×2 (08:44→21:03)
--- NOTE | 2017-01-26 10:12 | GIPROC ---
[facility] [address] [facility]. [facility] [place], [address] EGD PROCEDURE REPORT EXAM DATE: 01/26/2017 PATIENT NAME: Denys Sanon MR #: [id number] BIRTHDATE: 1935 ATTENDING: Kalani Zurita MD ORDER #: [id number] RETAIL ADVERTISING SALES MANAGER: Cynthia Sahni and Vamsi Pandey STATUS: inpatient INDICATIONS: The patient is a 81 yr old male here for an EGD due to anemia PROCEDURE PERFORMED: EGD w/ biopsy MEDICATIONS: None and Per Anesthesia. TOPICAL ANESTHETIC: none CONSENT: The patient understands the risks and benefits of the procedure and understands that these risks include, but are not limited to: sedation, allergic reaction, infection, perforation and/or bleeding. Alternative means of evaluation and treatment include, among others: physical exam, x-rays, and/or surgical intervention. The patient elects to proceed with this endoscopic procedure. medical equipment was checked for proper function. Hand hygiene and appropriate measures for infection prevention was taken. After the risks, benefits and alternatives of the procedure were thoroughly explained, Informed consent was verified, confirmed and timeout was successfully executed by the treatment team. The patient was anesthetized with topical anesthesia and the EC-[id number] (Pedi C) endoscope was introduced through the mouth and advanced to the second portion of the duodenum. Retroflexed views revealed a hiatal hernia The gastroscope was then slowly withdrawn and removed. ESOPHAGUS: There was LA Class A esophagitis noted. A diaphragmatic hiatus was present that measured 2 scope diameters. STOMACH: A subepithelial small nodule was located in the gastric antrum. Multiple biopsies were performed using cold forceps. Sample sent for histology. DUODENUM: The duodenal mucosa appeared normal in the bulb and second portion of the duodenum. ADVERSE EVENTS: There were no complications. IMPRESSIONS: 1. There was LA Class A esophagitis noted 2. Diaphragmatic hiatus was present that measured 2 scope diameters 3. A small nodule was located in the gastric antrum; multiple biopsies were performed 4. Normal duodenal mucosa in the bulb and second portion of the duodenum RECOMMENDATIONS: 1. Await biopsy results. Biopsy results will not be ready for 7-10 days. If you don't hear from us in two weeks, call our office for biopsy results. 2. Continue PPI PATIENT CONDITION: stable DISPOSITION: Observation REPEAT EXAM: Return as needed for EGD Kalani Zurita MD eSigned: Kalani Zurita MD 01/26/2017 10:12 AM cc: PATIENT NAME: Denys Sanon MR#: [id number]
[2017-01-26] MEDS ORDERED: PROPOFOL 200 MG/20 ML AMP IV ONE (10:14)
--- NOTE | 2017-01-26 10:17 | GIPROC ---
[facility] [address] [facility]. [facility], [address] COLONOSCOPY PROCEDURE REPORT EXAM DATE: 01/26/2017 PATIENT NAME: Denys Sanon MR #: [id number] BIRTHDATE: 1935 ENDOSCOPIST: Kalani Zurita MD ORDER #: [id number] SKATING RINK MANAGER: Vamsi Pandey RN STATUS: inpatient INDICATIONS: The patient is a 81 yr old male here for a colonoscopy due to anemia, non-specific PROCEDURE PERFORMED: Colonoscopy with biopsy MEDICATIONS: None and Per Anesthesia. PREP QUALITY: poor PREP TYPE:GoLytely ESTIMATED BLOOD LOSS: None CONSENT: The patient understands the risks and benefits of the procedure and understands that these risks include, but are not limited to: sedation, allergic reaction, infection, perforation and/or bleeding. Alternative means of evaluation and treatment include, among others: physical exam, x-rays, and/or surgical intervention. The patient elects to proceed with this endoscopic procedure. medical equipment was checked for proper function. Hand hygiene and appropriate measures for infection prevention was taken. After the risks, benefits and alternatives of the procedure were thoroughly explained, Informed consent was verified, confirmed and timeout was successfully executed by the treatment team. A digital exam was performed The Pentax EC-[id number] endoscope was introduced through the anus and advanced to the cecum, which was identified by both the appendix and ileocecal valve. The instrument was then slowly withdrawn as the colon was fully examined. COLON FINDINGS: A significant amount of stool was present throughout the entire examined colon. There was evidence of a prior end-to-side ileocolonic surgical anastomosis in the ascending colon. A small polypoid shaped flat polyp was found in the ascending colon. Multiple biopsies of the lesion were performed using cold forceps. Retroflexed views revealed no abnormalities The scope was then completely withdrawn from the patient and the procedure terminated. PROCEDURE WITHDRAWAL TIME:10minutes ADVERSE EVENTS: There were no complications. IMPRESSIONS: 1. Significant amount of stool was present throughout the entire examined colon 2. There was evidence of a prior ileocolonic surgical anastomosis in the ascending colon 3. A small flat polyp was found in the ascending colon; multiple biopsies of the lesion were performed 4. Retroflexed views revealed no abnormalities 5. Suboptimal bowel prep limited the exam RECOMMENDATIONS: Await biopsy results. Biopsy results will not be ready for 7-10 days. If you don't hear from us in two weeks, call our office for results. RECALL: Return 6 months Colonoscopy Kalani Zurita MD eSigned: Kalani Zurita MD 01/26/2017 10:16 AM cc:
--- NOTE | 2017-01-26 11:52 | HHI.PR ---
Subjective Remarks Follow up hypoxia. Patient has just returned from EGD/colonoscopy. He states he is breathing slightly better. He states for the last week he has been on 4L NC continuos at home, and last night he was short of breath and required a venturi mask. He denies any chest pain, fever or chills. Objective Vitals Vital Signs Date Time Temp Pulse Resp B/P Pulse Ox O2 Delivery O2 Flow Rate FiO2 01/26/17 11:13 97.9 70 20 120/58 94 01/26/17 10:25 70 18 103/43 95 01/26/17 10:14 70 18 106/40 95 01/26/17 10:06 98.9 71 18 111/65 18 01/26/17 08:55 98.3 69 18 142/68 95 01/26/17 08:05 92 Nasal Cannula 4.00 01/26/17 07:26 98.3 69 18 142/68 95 01/26/17 05:01 96.1 70 18 138/64 95 01/26/17 03:51 95 Venturi Mask 50 01/26/17 03:37 91 Venturi Mask 50 01/26/17 03:15 87 Nasal Cannula 4.00 01/26/17 00:12 96.3 69 20 136/65 93 01/25/17 20:48 95 Nasal Cannula 4.00 01/25/17 19:46 96.8 73 18 151/70 97 01/25/17 17:32 98.4 78 18 135/61 97 01/25/17 15:15 93 Nasal Cannula 2.00 01/25/17 13:46 94 Nasal Cannula 3 01/25/17 13:23 95 Nasal Cannula 4 01/25/17 13:22 69 20 121/59 95 Nasal Cannula 4 01/25/17 13:11 97.5 81 17 136/63 84 Nasal Cannula 4 I/O 01/25/17 01/25/17 01/25/17 01/26/17 01/26/17 01/26/17 07:00 15:00 23:00 07:00 15:00 23:00 Intake Total 500 ml Output Total 300 ml 650 ml 350 ml Balance -300 ml -650 ml 150 ml Intake Other 500 ml Output Urine Total 300 ml 650 ml 350 ml # Bowel Movements 4 Result Diagram: 01/26/171 6/7/17 0441 Imaging Last Impressions Chest X-Ray 01/25/17 5145 Signed Impressions: Service Date/Time: Wednesday, January 25, 2017 13:39 - CONCLUSION: 1. Small bilateral effusions and cardiomegaly suggesting some degree of congestive failure. Exam is unchanged compared to previous. Shabbir Melendez MD Objective Remarks GENERAL: Well nourished patient in NAD, currently on 4L NC SKIN: Warm and dry. HEAD: Atraumatic. Normocephalic. EYES: Pupils equal and round. No scleral icterus. No injection or drainage. ENT: No nasal bleeding or discharge. Mucous membranes pink and moist. NECK: Trachea midline. No JVD. CARDIOVASCULAR: Regular rate and rhythm. RESPIRATORY: No accessory muscle use.Left lower lobe crackles. GASTROINTESTINAL: Abdomen soft, non-tender, nondistended. Hepatic and splenic margins not palpable. MUSCULOSKELETAL: Extremities without clubbing, cyanosis, or edema. No obvious deformities. NEUROLOGICAL: Awake and alert. No obvious cranial nerve deficits. Motor grossly within normal limits. Five out of 5 muscle strength in the arms and legs. Normal speech. PSYCHIATRIC: Appropriate mood and affect; insight and judgment normal. Medications and IVs Current Medications Medications (Trade) Dose Ordered Sig/Faviola Route Start Time Stop Time Status Last Admin (NS Flush) 2 ml UNSCH PRN IV FLUSH 01/25/17 16:00 (NS Flush) 2 ml BID IV FLUSH 01/25/17 21:00 01/26/17 08:44 (Zofran Inj) 4 mg Q6H PRN IVP 01/25/17 16:00 (Narcan Inj) 0.4 mg UNSCH PRN IV 01/25/17 16:00 (Helene-Colace) 1 tab BID PO 01/25/17 21:00 01/26/17 08:43 (Milk Of Magnesia Liq) 30 ml Q12H PRN PO 01/25/17 16:00 (Senokot) 17.2 mg Q12H PRN PO 01/25/17 16:00 (Dulcolax Supp) 10 mg DAILY PRN RECTAL 01/25/17 16:00 (Lactulose Liq) 30 ml DAILY PRN PO 01/25/17 16:00 (D50w (Vial) Inj) 50 ml UNSCH PRN IV 01/25/17 17:45 (Glucagon Inj) 1 mg UNSCH PRN OTHER 01/25/17 17:45 (SoluMEDROL INJ) 40 mg Q6HR IV PUSH 01/25/17 18:00 01/26/17 05:58 Insulin Detemir 10 units 10 units HS SQ 01/25/17 21:00 01/25/17 21:17 (NS 1000 ml Inj) 1,000 ml @ 42 mls/hr [id number] IV 01/25/17 18:00 01/25/17 18:20 (Bystolic) 10 mg BID PO 01/25/17 21:00 01/26/17 08:43 Patient Own Medication 100 ea BID PO 01/25/17 21:00 Hold (Elavil) 25 mg HS PO 01/25/17 21:00 01/25/17 21:16 (Lipitor) 40 mg DAILY PO 01/26/17 09:00 01/26/17 08:43 (Vitamin B12) 100 mcg DAILY PO 01/26/17 09:00 01/26/17 08:43 (Lanoxin) 0.125 mg DAILY PO 01/26/17 09:00 01/26/17 08:43 (Proscar) 5 mg HS PO 01/25/17 21:00 01/25/17 21:16 (Protonix Inj) 40 mg Q12HR IV PUSH 01/25/17 21:00 01/26/17 08:43 (Ativan) 2 mg Q6H PRN PO 01/25/17 20:15 01/25/17 21:16 (Neurontin) 300 mg TID PO 01/26/17 09:00 01/26/17 08:43 (Apresoline) 10 mg Q6HR PRN PO 01/25/17 21:15 (Catapres) 0.1 mg Q6H PRN PO 01/25/17 21:15 (Demadex) 20 mg TID PO 01/26/17 13:00 A/P Problem List: (1) COPD (chronic obstructive pulmonary disease) ICD Code: J44.9 Status: Chronic (2) Hypoxemia ICD Code: R09.02 Status: Acute Assessment and Plan Mr. Sanon is an 81-year-old male patient with a known history of atrial fibrillation on Coumadin, type 2 diabetes mellitus, chronic obstructive pulmonary disease, hypertension, anxiety and depression who presented to the ED with complaints of increasing shortness of breath for several days. Acute on Chronic respiratory failure, pt is on 4L NC continuos at home, needing venturi mask overnight Hypoxia noted on ABG - Consult pulmonology, Dr. Galo, appreciate input. - Supplemental oxygen to keep O2 between 89-92%. - Change Solu-Medrol to 40 mg IV every 8 hours, pt is no longer wheezing - Duo nebs scheduled every 6 hours hour and every 4 hours when necessary wheezing. Microcytic hypochromic anemia, acute - Baseline hemoglobin is roughly around 13. Patient presented today with hemoglobin of 9.3. Denies any signs or symptoms of bleeding. Denies any recent hematochezia or melena. Last colonoscopy greater than five years ago. Hemoccult positive. - Consulted GI, appreciate input. Patient seen by GI FIRST FRONT VENTILATOR. Plan for EGD/ colonoscopy completed today. GI recommends cont PPI, repeat colonoscopy in 6 months, follow up outpatient for biopsy results. Acute on chronic Diastolic congestive heart failure Images: Chest x-ray reviewed, small bilateral effusions and cardiomegaly suggesting some degree of congestive failure. - BNP 269 on presentation. LLL crackles - 2-D echocardiogram reviewed from 01/11/17, ejection fraction 55%. Left ventricle cavity size mildly due to dilated. Mild LVH. Systolic function normal. - Monitor intake and output closely. Monitor for overload. -Consult cardiology, appreciate input, pt sees Dr. Colon outpatient, Dr. Natarajan recommended cont all home medications, follow up outpatient -Restart home torsemide Acute kidney injury, resolved to baseline 1.4 - Creatinine on presentation 1.66. Follow. Gentle hydration as needed. Atrial fibrillation, chronic - Continuous cardiac telemetry. Therapeutic INR 1.5. Repeat INR tomorrow. Continue Nebivolol 10 mg PO BID. Type 2 diabetes mellitus, chronic Hyperglycemia - Presenting blood sugar 453. Patient given Novolin 10 units sq x 1 in ED. Will give Levemir 10 units at bedtime and adjust insulin regimen as pt on steroids. Monitor closely. - Accu-Cheks before meals and at bedtime. Place patient on sliding scale insulin, covering as needed. Tight blood sugar control. Monitor closely. - hold Acarbose from home medication list due to renal function - Hemoglobin A1c pending. Follow. Hypertension, chronic: Controlled at this time. Hold lisinopril for now due to increased creatinine. Monitor. on Nebivolol. hydralazine and clonidine prn. Other chronic medical conditions include dyslipidemia and BPH and are stable at this time. Continue home medications as indicated. Monitor. GI Prophylaxis: Protonix 40 mg IV BID. DVT prophylaxis: SCDs/TEDs. Elle Snyder Jan 26, 2017 11:52
--- NOTE | 2017-01-26 13:24 | MB ---
cc: SIGRID RAINES DATE OF CONSULTATION: 01/26/2017 DATE OF : 1935 REASON FOR CONSULTATION Shortness of breath. HISTORY OF PRESENT ILLNESS 81-year-old male with past medical history significant for atrial fibrillation on Coumadin, type 2 diabetes mellitus, severe COPD on home O2, hypertension, chronic diastolic dysfunction and anemia, who presented to the hospital with complaints of increasing shortness of breath for several days. He reports that at baseline he uses at least two liters of O2 at night as well as CPAP, however , for the last couple of days has been using more supplemented oxygen, requiring four liters consistently. He has multiple admissions for the same complaints. His rn placement, Dr. Galo, recently prescribed him a steroid taper, antibiotics and nebulizer treatments. In the emergency department he was found to be anemic and fecal occult blood test was positive. GI was consulted, colonoscopy and endoscopy perfomed unremarkable with no evidence of active bleeding. Biopsies were obtained, results are still pending. Cardiology has been consulted because of shortness of breath. REVIEW OF SYSTEMS A review of systems is negative except for what is mentioned in the HPI. PAST MEDICAL HISTORY 1. Type 2 diabetes mellitus. 2. Atrial fibrillation on Coumadin. 3. Hypertension. 4. Anxiety. 5. Depression. 6. Ischemic encephalopathy. 7. Arthritis. 8. Severe COPD. 9. Skin cancer. PAST SURGICAL HISTORY 1. AICD placement. 2. Hernia repair. 3. Appendectomy. 4. Bilateral knee repair. 5. Bilateral cataract surgery. MEDICATIONS Cardiac home medications: 1. Warfarin 4 mg p.o. daily. 2. Lipitor 40 mg p.o. daily. 3. Torsemide 20 mg p.o. t.i.d. 4. Lisinopril 20 mg p.o. daily. 5. Bystolic 10 mg p.o. b.i.d. ALLERGIES No known drug allergies. FAMILY HISTORY Noncontributory. SOCIAL HISTORY He quit smoking 20 years ago. Denies alcohol use or illicit drug use. PHYSICAL EXAMINATION VITAL SIGNS: Temperature 97, heart rate 20, blood pressure 120/78, pulse 70. O2 sat 94% on 4 liter nasal cannula. GENERAL: He is awake and alert, oriented x3, in no acute distress. NECK: No JVD or carotid bruits. HEART: Irregularly irregular rhythm. No murmurs appreciated. LUNGS: Diminished breath sounds bilaterally with poor inspiratory effort. No wheezes, rhonchi or rales. ABDOMEN: Positive bowel sounds. Soft, nontender, nondistended. EXTREMITIES: No edema or cyanosis. Pulses throughout. DATA Hemoglobin 8.6, hematocrit 27, platelet count 316. INR 1.5. Chemistries: Sodium 137, potassium 4.1, BUN 32, creatinine 1.41. BNP 269, troponin less than 0.02. Random glucose 409. Chest x-ray: Small bilateral effusions and cardiomegaly. Mild congestive heart failure. Unchanged from previous. ASSESSMENT 81-year-old male with past medical history of diastolic dysfunction and severe COPD presenting with shortness of breath in the setting of anemia and positive blood in stools. No signs of active bleeding. He remains afebrile and hemodynamically stable, reports SOB is better but still requiring more O2. The last echocardiogram done in December 2016 shows an ejection fraction of 55% with mild LVH. His BNP is 269 with trace lower extremity edema. As mentioned earlier troponin are negative. An EKG shows no signs of ischemia. I think it will be reasonable to continue gentle IV diuresis, mindful of his acute kidney injury, and continue his cardiac home medications except the warfarin. Unfortunately, even though the patient's CHADS2 score is more than 2 for which chronic anticoagulation is highly recommended to prevent stroke in patients with atrial fibrillation, his anemia and positive blood in the stools do not make him a candidate for anticoagulation at this time. Thus Coumadin should be stopped until further notice. It seems to me that his shortness of breath comes from the anemia and acute on chronic COPD exacerbation. RECOMMENDATIONS 1. Strict input and output. 2. Gentle hydration, mindful of his creatinine. 3. Continue cardiac home medications except Coumadin. 4. Stop Coumadin given the GI bleeding. 5. COPD management per primary team and rn placement. 6. The patient should follow-up with Dr. Mills upon discharge. Thank you for the opportunity to take part in the care of this patient. Will be available on a p.r.n. basis for any other questions or concerns. Sigrid Raines MD PHARMACOMETRICIAN/BT /12:42 PM /1:00 PM CHRISTINA
[2017-01-26] MEDS: TORSEMIDE 20 MG TAB PO SCH ×2 (13:57→17:55)
[2017-01-26] MEDS: LORazepam 2 MG TAB PO PRN ×2 (14:58→21:02)
[2017-01-26 17:35] LABS: HEMOGLOBIN A1a 0.9 %; HEMOGLOBIN A1b 2.4 %; HEMOGLOBIN Ao 79.2 %; HEMOGLOBIN LA1C 3.9 %; HEMOGLOBIN P3 7.2 %
--- NOTE | 2017-01-26 19:42 | EKG ---
Date Performed: 01/25/2017 Time Performed: 14:57:49 PTAGE: 81 years EKG: ELECTRONIC VENTRICULAR PACEMAKER ABNORMAL RHYTHM ECG PREVIOUS TRACING : 01/11/2017 01.40 Compared to prior tracing no significant change DOCTOR: Tej Pereira Interpretating Date/Time 01/26/2017 19:41:26
[2017-01-26] MEDS: AMITRIPTYLINE HCL 25 MG TAB PO SCH (21:02)
[2017-01-26] MEDS: FINASTERIDE 5 MG TAB PO SCH (21:03)
[2017-01-26] MEDS: INSULIN DETEMIR 100 UNITS/ML VIAL SQ SCH (21:07)
[2017-01-27] VITALS (7 sets, daily range): BP systolic 120–147; BP diastolic 60–70; PULSE 68–71; RESP 16–18; TEMP 97.3–98.3; O2SAT 93–100
[2017-01-27] MEDS: RESP: ALBUTEROL 2.5 MG/IPRATROPIUM 0.5 MG NEB (SCH) NEB ×4 (03:25→22:41)
[2017-01-27] MEDS: methylPREDNISolone SOD SUCC 40 MG/1 ML VIAL IV PUSH SCH (04:24)
[2017-01-27] MEDS: LORazepam 2 MG TAB PO PRN ×3 (04:24→16:57)
[2017-01-27] MEDS: INSULIN ASPART SUPPLEMENTAL SCALE SQ SCH ×4 (06:28→21:00)
[2017-01-27 07:55] LABS: INTERNATIONAL NORMALIZED RATIO 1.3 RATIO; PROTHROMBIN TIME - PATIENT 14.2 SEC (9.8-11.6)
[2017-01-27 07:59] LABS: AUTOMATED NEUTROPHIL # 14.8 TH/MM3 (1.8-7.7); BASOPHIL % 0.1 % (0.0-2.0); HEMATOCRIT 31.5 % (39.0-51.0); HEMO FLAGS DIFF FINAL; LYMPH % 1.6 % (9.0-44.0); LYMPHOCYTE # 0.2 TH/MM3 (1.0-4.8); MEAN CELL VOLUME 78.6 FL (80.0-100.0); MEAN CORPUSCULAR HGB CONC 30.5 % (32.0-36.0); MONO % 1.7 % (0.0-8.0); NEUT % 96.6 % (16.0-70.0); PLATELET COUNT 472 TH/MM3 (150-450); RED BLOOD COUNT 4.01 MIL/MM3 (4.50-5.90); RED CELL DISTRIBUTION WIDTH 16.6 % (11.6-17.2); WHITE BLOOD COUNT 15.3 TH/MM3 (4.0-11.0)
[2017-01-27 08:18] LABS: BICARBONATE 34.6 MEQ/L (21.0-32.0); POTASSIUM 4.3 MEQ/L (3.5-5.1)
[2017-01-27] MEDS: PANTOPRAZOLE SODIUM 40 MG VIAL IV PUSH SCH ×2 (09:25→21:00)
[2017-01-27] MEDS: DIGOXIN 0.125 MG TAB PO SCH (09:26)
[2017-01-27] MEDS: GABAPENTIN 300 MG CAP PO SCH ×3 (09:26→16:57)
[2017-01-27] MEDS: DOCUSATE SODIUM 50 MG/SENNA 8.6 MG TAB PO SCH ×2 (09:26→21:00)
[2017-01-27] MEDS: CYANOCOBALAMIN 100 MCG TAB PO SCH (09:26)
[2017-01-27] MEDS: SODIUM CHLORIDE 0.9% FLUSH 10 ML FLUSH IV FLUSH SCH ×2 (09:26→21:00)
[2017-01-27] MEDS: TORSEMIDE 20 MG TAB PO SCH ×3 (09:26→16:57)
[2017-01-27] MEDS: NEBIVOLOL 10 MG TAB PO SCH ×2 (09:26→21:35)
[2017-01-27] MEDS: ATORVASTATIN 40 MG TAB PO SCH (09:27)
[2017-01-27] MEDS ORDERED: INSULIN HUMAN NPH 1,000 UNITS/10 ML VIAL SQ ONE (11:15)
--- NOTE | 2017-01-27 14:29 | HHI.PR ---
Subjective Remarks Respiratory status is improved. GI workup is negative and no further active bleeding is suspected. However, at bedtime blood sugars are out of control. It is been difficult to keep his blood sugars under 400. Illness blood sugars improve he is not stable for discharge to home yet. Objective Vital Signs Date Time Temp Pulse Resp B/P Pulse Ox O2 Delivery O2 Flow Rate FiO2 01/27/17 12:09 97.7 69 18 140/65 96 01/27/17 12:00 Nasal Cannula 4.00 01/27/17 08:55 100 Nasal Cannula 4.00 01/27/17 08:30 Nasal Cannula 4.00 01/27/17 08:03 97.8 70 18 147/70 97 01/27/17 04:00 97.9 71 18 141/69 93 01/27/17 00:00 98.3 70 16 129/62 94 01/26/17 21:30 Nasal Cannula 4.00 01/26/17 21:24 98 Nasal Cannula 4.00 01/26/17 20:00 98.4 72 16 126/59 92 01/26/17 16:00 Nasal Cannula 4.00 01/26/17 15:00 Nasal Cannula 4.00 01/26/17 14:32 98.5 70 20 124/59 96 I/O 01/26/17 01/26/17 01/26/17 01/27/17 01/27/17 01/27/17 07:00 15:00 23:00 07:00 15:00 23:00 Intake Total 500 ml 250 ml 120 ml 330 ml Output Total 650 ml 350 ml 200 ml 300 ml Balance -650 ml 150 ml 50 ml -180 ml 330 ml Intake Oral 240 ml 120 ml 330 ml IV Total 10 ml Other 500 ml Output Urine Total 650 ml 350 ml 200 ml 300 ml # Voids 3 # Bowel Movements 4 1 0 1 Result Diagram: 01/27/17 0718 01/27/17 1119 Objective Remarks GENERAL: NAD, A&Ox3 SKIN: Warm and dry. HEAD: Normocephalic. EYES: No scleral icterus. No injection or drainage. NECK: Supple, trachea midline. No JVD or lymphadenopathy. CARDIOVASCULAR: Regular rate and rhythm without murmurs, gallops, or rubs. RESPIRATORY: Breath sounds equal bilaterally. No accessory muscle use. GASTROINTESTINAL: Abdomen soft, non-tender, nondistended. MUSCULOSKELETAL: No cyanosis, or edema. A/P Problem List: (1) Hypoxemia ICD Code: R09.02 (2) COPD (chronic obstructive pulmonary disease) ICD Code: J44.9 (3) GI bleed ICD Code: K92.2 (4) Hyperglycemia ICD Code: R73.9 Assessment and Plan Assessment and plan 81-year-old male admitted with GI bleed and COPD exacerbation. Patient is eager to return home but severe hyperglycemia is preventing this option. Hyperglycemia appear secondary to steroids. Severe hyperglycemia Diabetes mellitus type 2 Patient reports control at baseline Permanent long-acting treatments would not be appropriate He is given a one-time NPH 15 units today Continue sliding scale Follow for improvement COPD exacerbation Chronic respiratory failure Continue oxygen Her story status has improved Reaction to steroids, causing hyperglycemia and Steroids discontinued Follow respiratory status Microcytic hypochromic anemia, acute No acute concerns on GI workup Follow CBC Acute on chronic Diastolic congestive heart failure Stabilized Continue to torosemide Acute kidney injury Resolved Atrial fibrillation, chronic No tachycardia Follow INR Continue Nebivolol 10 mg PO BID. Hypertension, chronic on Nebivolol. hydralazine and clonidine prn. GI Prophylaxis Protonix 40 mg IV BID. DVT prophylaxis SCDs/TEDs. Problem Qualifiers (1) GI bleed: Qualified Code: K92.2 - Gastrointestinal hemorrhage, unspecified gastrointestinal hemorrhage type Shabbir Small MD Jan 27, 2017 14:29
[2017-01-27] MEDS ORDERED: INSULIN ASPART 1,000 UNITS/10 ML VIAL SQ ONE (14:30)
--- NOTE | 2017-01-27 17:19 | HHI.GIFU ---
Subjective Remarks Pt resting in bed, visiting with family. No pain, n/v, bleeding. Ready to go home he says. (Noemy Chavis) Objective Vitals I&O Vital Signs Date Time Temp Pulse Resp B/P Pulse Ox O2 Delivery O2 Flow Rate FiO2 01/27/17 12:09 97.7 69 18 140/65 96 01/27/17 12:00 Nasal Cannula 4.00 01/27/17 08:55 100 Nasal Cannula 4.00 01/27/17 08:30 Nasal Cannula 4.00 01/27/17 08:03 97.8 70 18 147/70 97 01/27/17 04:00 97.9 71 18 141/69 93 01/27/17 00:00 98.3 70 16 129/62 94 01/26/17 21:30 Nasal Cannula 4.00 01/26/17 21:24 98 Nasal Cannula 4.00 01/26/17 20:00 98.4 72 16 126/59 92 I/O 01/26/17 01/26/17 01/26/17 01/27/17 01/27/17 01/27/17 07:00 15:00 23:00 07:00 15:00 23:00 Intake Total 500 ml 250 ml 120 ml 330 ml Output Total 650 ml 350 ml 200 ml 300 ml Balance -650 ml 150 ml 50 ml -180 ml 330 ml Intake Oral 240 ml 120 ml 330 ml IV Total 10 ml Other 500 ml Output Urine Total 650 ml 350 ml 200 ml 300 ml # Voids 3 # Bowel Movements 4 1 0 1 Laboratory Laboratory Tests Test 01/27/17 01/27/17 07:18 11:19 White Blood Count 15.3 Red Blood Count 4.01 Hemoglobin 9.6 Hematocrit 31.5 Mean Corpuscular Volume 78.6 Mean Corpuscular Hemoglobin 24.0 Mean Corpuscular Hemoglobin 30.5 Concent Red Cell Distribution Width 16.6 Platelet Count 472 Mean Platelet Volume 8.4 Neutrophils (%) (Auto) 96.6 Lymphocytes (%) (Auto) 1.6 Monocytes (%) (Auto) 1.7 Eosinophils (%) (Auto) 0.0 Basophils (%) (Auto) 0.1 Neutrophils # (Auto) 14.8 Lymphocytes # (Auto) 0.2 Monocytes # (Auto) 0.3 Eosinophils # (Auto) 0.0 Basophils # (Auto) 0.0 CBC Comment DIFF FINAL Differential Comment Prothrombin Time 14.2 Prothromb Time International 1.3 Ratio Sodium Level 136 Potassium Level 4.3 Chloride Level 93 Carbon Dioxide Level 34.6 Anion Gap 8 Blood Urea Nitrogen 36 Creatinine 1.55 Estimat Glomerular Filtration 43 Rate Random Glucose 347 497 Calcium Level 9.1 Physical Exam HEENT: EOMI; normocephalic; atraumatic; no jaundice. CHEST: CTA CARDIAC: RRR ABDOMEN: Soft, nondistended, nontender; no hepatosplenomegaly; bowel sounds are present in all four quadrants. EXTREMITIES: No clubbing, cyanosis, or edema. SKIN: Normal; no rash; no jaundice. PIG STICKER: No focal deficits; alert and oriented times three. (Noemy Chavis) Assessment and Plan Plan ASSESSMENT - anemia - Hgb 9.3 on admission. heme + stool. Pt admitted for SOB, hypoxia, found to have elevated blood sugar. s/p EGD/colonoscopy with findings of esophagitis, nodule that was biopsied, diaphragmatic hiatus, supoptimal colon prep, flat polyp, evidence prior ileocolonic surgical anastamosis. PLAN - monitor HH - supportive care - okay to D/C from GI standpoint when sugars are controlled THis pt seen by myself and Dr Zurita and this note is written on his behalf ( Noemy Chavis) Physician Comments Seen and examined, plan as above. (Kalani Zurita MD) Noemy Chavis Jan 27, 2017 17:19 Kalani Zurita MD Jan 27, 2017 23:55
[2017-01-27] MEDS: INSULIN DETEMIR 100 UNITS/ML VIAL SQ SCH (21:00)
[2017-01-27] MEDS: AMITRIPTYLINE HCL 25 MG TAB PO SCH (21:35)
[2017-01-27] MEDS: FINASTERIDE 5 MG TAB PO SCH (21:35)
[2017-01-28] VITALS: BP 143/74; PULSE 70; RESP 20; TEMP 97.6; O2SAT 97
--- NOTE | 2017-01-28 01:37 | HHI.PR ---
Blank section for building Patient's blood glucose at 2100, 63. Levemir placed on hold and hypoglycemia protocol initiated Alysa Patricio Jan 28, 2017 01:37
[2017-01-28 04:00] VITALS: BP 137/70; PULSE 71; RESP 22; TEMP 97.8; O2SAT 99
[2017-01-28 05:16] VITALS: O2SAT 98
[2017-01-28] MEDS: RESP: ALBUTEROL 2.5 MG/IPRATROPIUM 0.5 MG NEB (SCH) NEB ×2 (05:16→07:51)
[2017-01-28] MEDS: LORazepam 2 MG TAB PO PRN ×2 (05:20→11:13)
[2017-01-28] MEDS: INSULIN ASPART SUPPLEMENTAL SCALE SQ SCH ×2 (06:28→11:00)
[2017-01-28 07:54] VITALS: O2SAT 96
[2017-01-28 08:00] VITALS: BP 146/72; PULSE 69; RESP 20; TEMP 98.1; O2SAT 96
[2017-01-28 08:27] LABS: HEMATOCRIT 30.9 % (39.0-51.0); MEAN CELL VOLUME 78.6 FL (80.0-100.0); MEAN CORPUSCULAR HEMOGLOBIN 24.4 PG (27.0-34.0); MEAN CORPUSCULAR HGB CONC 31.1 % (32.0-36.0); PLATELET COUNT 372 TH/MM3 (150-450); RED BLOOD COUNT 3.93 MIL/MM3 (4.50-5.90); RED CELL DISTRIBUTION WIDTH 16.1 % (11.6-17.2); REVIEW FLAG FINAL
[2017-01-28 08:49] LABS: POTASSIUM 3.7 MEQ/L (3.5-5.1)
[2017-01-28] MEDS: DOCUSATE SODIUM 50 MG/SENNA 8.6 MG TAB PO SCH (09:00)
[2017-01-28] MEDS: PANTOPRAZOLE SODIUM 40 MG VIAL IV PUSH SCH (09:00)
[2017-01-28] MEDS: SODIUM CHLORIDE 0.9% FLUSH 10 ML FLUSH IV FLUSH SCH (09:00)
[2017-01-28] MEDS: NEBIVOLOL 10 MG TAB PO SCH (09:06)
[2017-01-28] MEDS: TORSEMIDE 20 MG TAB PO SCH (09:06)
[2017-01-28] MEDS: ATORVASTATIN 40 MG TAB PO SCH (09:06)
[2017-01-28] MEDS: DIGOXIN 0.125 MG TAB PO SCH (09:07)
[2017-01-28] MEDS: GABAPENTIN 300 MG CAP PO SCH (09:07)
[2017-01-28] MEDS: CYANOCOBALAMIN 100 MCG TAB PO SCH (09:07)
--- NOTE | 2017-01-28 10:40 | HHI.PR ---
Subjective Remarks This is a pleasant 81 y/o Male with Atrial Fibrillation on Coumadin, DM II, CAD , COPD, Hypertension, Anxiety, Depression came to ER with SOB and swollen legs. seen by his Primary social media content specialist Dr. Galo recommended to Titrate Steroids, antibiotics. he was discharged yesterday but his blood sugar was out of control due to the use if Steroids high dose, today after were discontinued he is having better readings, will be able to go home and continue management at this time in his bedroom dressed awaiting fo me he wants to go home now. Objective Vital Signs Date Time Temp Pulse Resp B/P Pulse Ox O2 Delivery O2 Flow Rate FiO2 01/28/17 08:00 98.1 69 20 146/72 96 01/28/17 07:54 96 Nasal Cannula 2.00 01/28/17 05:16 98 Nasal Cannula 3.00 01/28/17 04:00 97.8 71 22 137/70 99 01/28/17 00:00 97.6 70 20 143/74 97 01/27/17 21:39 Nasal Cannula 4.00 01/27/17 20:05 97.3 69 18 120/60 96 01/27/17 16:00 Nasal Cannula 4.00 01/27/17 16:00 97.7 68 18 147/70 96 01/27/17 12:09 97.7 69 18 140/65 96 01/27/17 12:00 Nasal Cannula 4.00 I/O 01/27/17 01/27/17 01/27/17 01/28/17 01/28/17 01/28/17 07:00 15:00 23:00 07:00 15:00 23:00 Intake Total 120 ml 342 ml 280 ml 220 ml Output Total 300 ml 400 ml 500 ml Balance -180 ml 342 ml -120 ml -280 ml Intake Oral 120 ml 330 ml 280 ml 220 ml IV Total 12 ml Output Urine Total 300 ml 400 ml 500 ml # Voids 3 # Bowel Movements 0 1 0 0 Result Diagram: 01/28/17 0750 01/28/17 0750 Imaging Last Impressions Chest X-Ray 01/25/17 1335 Signed Impressions: Service Date/Time: Wednesday, January 25, 2017 13:39 - CONCLUSION: 1. Small bilateral effusions and cardiomegaly suggesting some degree of congestive failure. Exam is unchanged compared to previous. Shabbir Melendez MD Procedures EGD and Colonoscopy Other Results Laboratory Tests Test 01/25/17 01/25/17 01/25/17 01/26/17 13:39 13:40 14:03 04:41 Digoxin Level 1.0 NG/ML Activated Partial 30.9 SEC Thromboplast Time Magnesium Level 2.0 MG/DL Total Bilirubin 0.8 MG/DL Aspartate Amino Transf 10 U/L (AST/SGOT) Alanine Aminotransferase 13 U/L (ALT/SGPT) Alkaline Phosphatase 37 U/L Total Creatine Kinase 40 U/L Troponin I 0.02 NG/ML B-Type Natriuretic Peptide 269 PG/ML Total Protein 7.4 GM/DL Albumin 3.6 GM/DL Blood Type AB NEGATIVE Antibody Screen NEGATIVE Blood Bank Comment Blood Gas Puncture Site RT RADIAL Blood Gas Patient Temperature 98.6 Blood Gas HCO3 34 mmol/L Blood Gas Base Excess 8.8 mmol/L Blood Gas Oxygen Saturation 88 % Arterial Blood pH 7.41 Arterial Blood Partial 54 mmHg Pressure CO2 Arterial Blood Partial 65 mmHg Pressure O2 Arterial Blood Oxygen Content 10.8 Vol % Arterial Blood 2.7 % Carboxyhemoglobin Arterial Blood Methemoglobin 1.0 % Blood Gas Hemoglobin 8.6 G/DL Oxygen Delivery Device NASAL CANNULA Blood Gas Liter Flow 3 L/M Blood Gas Inspired Oxygen 32 % Hemoglobin A1c 7.6 % Test 01/27/17 01/28/17 07:18 07:50 Neutrophils (%) (Auto) 96.6 % Lymphocytes (%) (Auto) 1.6 % Monocytes (%) (Auto) 1.7 % Eosinophils (%) (Auto) 0.0 % Basophils (%) (Auto) 0.1 % Neutrophils # (Auto) 14.8 TH/MM3 Lymphocytes # (Auto) 0.2 TH/MM3 Monocytes # (Auto) 0.3 TH/MM3 Eosinophils # (Auto) 0.0 TH/MM3 Basophils # (Auto) 0.0 TH/MM3 CBC Comment DIFF FINAL Differential Comment Prothrombin Time 14.2 SEC Prothromb Time International 1.3 RATIO Ratio White Blood Count 9.0 TH/MM3 Red Blood Count 3.93 MIL/MM3 Hemoglobin 9.6 GM/DL Hematocrit 30.9 % Mean Corpuscular Volume 78.6 FL Mean Corpuscular Hemoglobin 24.4 PG Mean Corpuscular Hemoglobin 31.1 % Concent Red Cell Distribution Width 16.1 % Platelet Count 372 TH/MM3 Mean Platelet Volume 7.9 FL Sodium Level 137 MEQ/L Potassium Level 3.7 MEQ/L Chloride Level 94 MEQ/L Carbon Dioxide Level 35.0 MEQ/L Anion Gap 8 MEQ/L Blood Urea Nitrogen 34 MG/DL Creatinine 1.26 MG/DL Estimat Glomerular Filtration 55 ML/MIN Rate Random Glucose 188 MG/DL Calcium Level 8.6 MG/DL Objective Remarks GENERAL: NAD, A&Ox3 SKIN: Warm and dry. HEAD: Normocephalic. EYES: No scleral icterus. No injection or drainage. NECK: Supple, trachea midline. No JVD or lymphadenopathy. CARDIOVASCULAR: Regular rate and rhythm without murmurs, gallops, or rubs. RESPIRATORY: Breath sounds equal bilaterally. No accessory muscle use. GASTROINTESTINAL: Abdomen soft, non-tender, nondistended. MUSCULOSKELETAL: No cyanosis, or edema. Medications and IVs Current Medications Medications (Trade) Dose Ordered Sig/Faviola Route Start Time Stop Time Status Last Admin (NS Flush) 2 ml UNSCH PRN IV FLUSH 01/25/17 16:00 (NS Flush) 2 ml BID IV FLUSH 01/25/17 21:00 01/27/17 09:26 (Zofran Inj) 4 mg Q6H PRN IVP 01/25/17 16:00 (Narcan Inj) 0.4 mg UNSCH PRN IV 01/25/17 16:00 (Helene-Colace) 1 tab BID PO 01/25/17 21:00 01/27/17 09:26 (Milk Of Magnesia Liq) 30 ml Q12H PRN PO 01/25/17 16:00 (Senokot) 17.2 mg Q12H PRN PO 01/25/17 16:00 (Dulcolax Supp) 10 mg DAILY PRN RECTAL 01/25/17 16:00 (Lactulose Liq) 30 ml DAILY PRN PO 01/25/17 16:00 (D50w (Vial) Inj) 50 ml UNSCH PRN IV 01/25/17 17:45 (Glucagon Inj) 1 mg UNSCH PRN OTHER 01/25/17 17:45 (Levemir Inj) 10 units HS SQ 01/25/17 21:00 Hold 01/26/17 21:07 (Bystolic) 10 mg BID PO 01/25/17 21:00 01/28/17 09:06 Patient Own Medication 100 ea BID PO 01/25/17 21:00 Hold (Elavil) 25 mg HS PO 01/25/17 21:00 01/27/17 21:35 (Lipitor) 40 mg DAILY PO 01/26/17 09:00 01/28/17 09:06 (Vitamin B12) 100 mcg DAILY PO 01/26/17 09:00 01/28/17 09:07 (Lanoxin) 0.125 mg DAILY PO 01/26/17 09:00 01/28/17 09:07 (Proscar) 5 mg HS PO 01/25/17 21:00 01/27/17 21:35 (Protonix Inj) 40 mg Q12HR IV PUSH 01/25/17 21:00 01/27/17 09:25 (Ativan) 2 mg Q6H PRN PO 01/25/17 20:15 01/28/17 05:20 (Neurontin) 300 mg TID PO 01/26/17 09:00 01/28/17 09:07 (Apresoline) 10 mg Q6HR PRN PO 01/25/17 21:15 (Catapres) 0.1 mg Q6H PRN PO 01/25/17 21:15 (Demadex) 20 mg TID PO 01/26/17 13:00 01/28/17 09:06 A/P Assessment and Plan 1. Anemia Hemoglobin stable seen by GI specialist status post EGD/colonoscopy with findings of esophagitis, nodule that was biopsied, diaphragmatic hiatus, supoptimal colon prep, flat polyp, evidence prior ileocolonic surgical anastomosis. - okay to D/C from GI standpoint when sugars are controlled 2. Hyperglycemia/DM II, better control after discontinue his high dosages of Solu-Medrol. 3. COPD exacerbation on chronic respiratory failure, on Oxygen. better will continue Home medicines. 4. Anemia performed anemia workup did not found pathology okay to discharge as per GI specialist. 5. Acute on chronic Diastolic CHF, stable continue Torsemide. 6. Atrial Fibrillation on Nebivolol 10 mg BID, 7. Hypertension controlled. \ okay to discharge home High risk for Readmission due to his basal pathology End stage COPD DVT prophylaxis SCDs/TEDs. Discharge Planning Discharge Home now. William Weinstein MD Jan 28, 2017 10:40
--- NOTE | 2017-01-28 11:11 | HHI.DS ---
Discharge Summary Admission Date Jan 26, 2017 at 08:06 Discharge Date: Jan 28, 2017 Admitting Diagnosis Hypoxia, GI bleed (1) COPD (chronic obstructive pulmonary disease) ICD Code: J44.9 Diagnosis: Principal (2) Hypoxemia ICD Code: R09.02 Diagnosis: Principal Procedures EGD and Colonoscopy. Brief History - From Admission Written by Carolina Pacheco, acting as scribe for Dr. Bell on 01/25/17 at 17:34. Mr. Sanon is an 81-year-old male patient with a known history of atrial fibrillation on Coumadin, type 2 diabetes mellitus, chronic obstructive pulmonary disease, hypertension, mild congestive heart failure, anxiety and depression who presented to the ED with complaints of increasing shortness of breath for several days. Patient states that he usually uses 2 L home O2 strictly at night with CPAP but for the past few days he has required 4 L O2 quite consistently. Per records, patient presented to the ED on 01/07/17 and for similar complaints of increasing shortness of breath and increasing lower extremity edema. At that time, patient was given Lasix for diagnosed acute on chronic heart failure with improvements seen in his breathing. Since then patient has been seen increasing requirements of his home O2. Patient saw his supply chain tech, Dr. galo, yesterday and was prescribed steroid taper, amoxicillin and nebulizer treatments. Patient states he started the steroids today with significant improvement seen in his shortness of breath since yesterday. Patient denies any recent fever, chills, chest pain, palpitations, abdominal pain, nausea, vomiting or dysuria. Also denies any recent diarrhea or blood in stool. Patient's PCP is Dr. Moran, who has been concerned about his downward trend in his hemoglobin the past couple months. Patient's usual baseline hemoglobin is 13, with today's presentation of 9.3. Patient states that he does take warfarin with therapeutic INR. Patient states last colonoscopy was greater than five years ago and he doesn't remember who his GI is. CBC/BMP: 01/28/17 0750 01/28/17 0750 Significant Findings Laboratory Tests Test 601/25/17 01/26/17 01/27/17 13:40 14:03 04:41 07:18 Red Blood Count 3.68 MIL/MM3 3.46 MIL/MM3 4.01 MIL/MM3 (4.50-5.90) (4.50-5.90) (4.50-5.90) Hemoglobin 9.3 GM/DL 8.6 GM/DL 9.6 GM/DL (13.0-17.0) (13.0-17.0) (13.0-17.0) Hematocrit 29.3 % 27.6 % 31.5 % (39.0-51.0) (39.0-51.0) (39.0-51.0) Mean Corpuscular Volume 79.7 FL 79.7 FL 78.6 FL (80.0-100.0) (80.0-100.0) (80.0-100.0) Mean Corpuscular Hemoglobin 25.4 PG 24.8 PG 24.0 PG (27.0-34.0) (27.0-34.0) (27.0-34.0) Mean Corpuscular Hemoglobin 31.8 % 31.2 % 30.5 % Concent (32.0-36.0) (32.0-36.0) (32.0-36.0) Neutrophils (%) (Auto) 94.5 % 95.6 % 96.6 % (16.0-70.0) (16.0-70.0) (16.0-70.0) Lymphocytes (%) (Auto) 2.6 % 2.7 % 1.6 % (9.0-44.0) (9.0-44.0) (9.0-44.0) Lymphocytes # (Auto) 0.2 TH/MM3 0.2 TH/MM3 0.2 TH/MM3 (1.0-4.8) (1.0-4.8) (1.0-4.8) Prothrombin Time 16.4 SEC 14.2 SEC (9.8-11.6) (9.8-11.6) Activated Partial 30.9 SEC Thromboplast Time (24.3-30.1) Chloride Level 95 MEQ/L 93 MEQ/L 93 MEQ/L (98-107) (98-107) (98-107) Carbon Dioxide Level 34.7 MEQ/L 36.3 MEQ/L 34.6 MEQ/L (21.0-32.0) (21.0-32.0) (21.0-32.0) Blood Urea Nitrogen 40 MG/DL (7-18) 32 MG/DL (7-18) 36 MG/DL (7-18) Creatinine 1.66 MG/DL 1.41 MG/DL 1.55 MG/DL (0.60-1.30) (0.60-1.30) (0.60-1.30) Estimat Glomerular Filtration 40 ML/MIN (>89) 48 ML/MIN (>89) 43 ML/MIN (>89) Rate Random Glucose 453 MG/DL 409 MG/DL 347 MG/DL (74-106) (74-106) (74-106) Aspartate Amino Transf 10 U/L (15-37) (AST/SGOT) Alkaline Phosphatase 37 U/L (45-117) B-Type Natriuretic Peptide 269 PG/ML (0-100) Blood Gas HCO3 34 mmol/L (22-26) Blood Gas Base Excess 8.8 mmol/L (-2-2) Blood Gas Oxygen Saturation 88 % (90-100) Arterial Blood Partial 54 mmHg (38-42) Pressure CO2 Arterial Blood Oxygen Content 10.8 Vol % (12.0-20.0) Blood Gas Hemoglobin 8.6 G/DL (12.0-16.0) Hemoglobin A1c 7.6 % (4.3-6.0) White Blood Count 15.3 TH/MM3 (4.0-11.0) Platelet Count 472 TH/MM3 (150-450) Neutrophils # (Auto) 14.8 TH/MM3 (1.8-7.7) Test 01/27/17 01/28/17 11:19 07:50 Random Glucose 497 MG/DL 188 MG/DL (74-106) (74-106) Red Blood Count 3.93 MIL/MM3 (4.50-5.90) Hemoglobin 9.6 GM/DL (13.0-17.0) Hematocrit 30.9 % (39.0-51.0) Mean Corpuscular Volume 78.6 FL (80.0-100.0) Mean Corpuscular Hemoglobin 24.4 PG (27.0-34.0) Mean Corpuscular Hemoglobin 31.1 % Concent (32.0-36.0) Chloride Level 94 MEQ/L (98-107) Carbon Dioxide Level 35.0 MEQ/L (21.0-32.0) Blood Urea Nitrogen 34 MG/DL (7-18) Estimat Glomerular Filtration 55 ML/MIN (>89) Rate Imaging Last Impressions Chest X-Ray 01/25/17 1335 Signed Impressions: Service Date/Time: Wednesday, January 25, 2017 13:39 - CONCLUSION: 1. Small bilateral effusions and cardiomegaly suggesting some degree of congestive failure. Exam is unchanged compared to previous. Shabbir Melendez MD PE at Discharge GENERAL: NAD, A&Ox3 SKIN: Warm and dry. HEAD: Normocephalic. EYES: No scleral icterus. No injection or drainage. NECK: Supple, trachea midline. No JVD or lymphadenopathy. CARDIOVASCULAR: Regular rate and rhythm without murmurs, gallops, or rubs. RESPIRATORY: Breath sounds equal bilaterally. No accessory muscle use. GASTROINTESTINAL: Abdomen soft, non-tender, nondistended. MUSCULOSKELETAL: No cyanosis, or edema. Hospital Course This is a pleasant 81 y/o Male with Atrial Fibrillation on Coumadin, DM II, CAD , COPD, Hypertension, Anxiety, Depression came to ER with SOB and swollen legs. seen by his Primary park services specialist Dr. Galo recommended to Titrate Steroids, antibiotics. he was discharged yesterday but his blood sugar was out of control due to the use if Steroids high dose, today after were discontinued he is having better readings, will be able to go home and continue management at this time in his bedroom dressed awaiting fo me he wants to go home now. Assessment and Plan 1. Anemia Hemoglobin stable seen by GI specialist status post EGD/colonoscopy with findings of esophagitis, nodule that was biopsied, diaphragmatic hiatus, supoptimal colon prep, flat polyp, evidence prior ileocolonic surgical anastomosis. - okay to D/C from GI standpoint when sugars are controlled 2. Hyperglycemia/DM II, better control after discontinue his high dosages of Solu-Medrol. 3. COPD exacerbation on chronic respiratory failure, on Oxygen. better will continue Home medicines. 4. Anemia performed anemia workup did not found pathology okay to discharge as per GI specialist. 5. Acute on chronic Diastolic CHF, stable continue Torsemide. 6. Atrial Fibrillation on Nebivolol 10 mg BID, 7. Hypertension controlled. \ okay to discharge home High risk for Readmission due to his basal pathology End stage COPD DVT prophylaxis SCDs/TEDs. Discharge Planning Discharge Home now. Pt Condition on Discharge: Good Discharge Disposition: Discharge Home Discharge Time: > 30 minutes Discharge Instructions DIET: Follow Instructions for: Heart Healthy Diet, Diabetic Diet Activities you can perform: Regular-No Restrictions William Weinstein MD Jan 28, 2017 11:11
== END 2017-01-28 12:20 | disposition home or self-care (01) | DRG 377 ==
LOC: NEPE 13:09 → NEDA 15:43 → NEPHCDU 16:55 → OBSVTOIN 01-26 08:06 → N04B 01-26 14:35
PROVIDERS: ADMIT Internal Medicine; ATTEND Internal Medicine
PROC: 0DB68ZX Excision of Stomach, Via Natural or Artificial Opening Endoscopic, Diagnostic (ICD-10-PCS; principal; 2017-01-26 09:30)
PROC: 0DBK8ZX Excision of Ascending Colon, Via Natural or Artificial Opening Endoscopic, Diagnostic (ICD-10-PCS; 2017-01-26 09:30)
DX: K92.1 Melena (principal); J96.21 Acute and chronic respiratory failure with hypoxia; N17.9 Acute kidney failure, unspecified; I50.33 Acute on chronic diastolic (congestive) heart failure; J44.1 Chronic obstructive pulmonary disease with (acute) exacerbation; E11.65 Type 2 diabetes mellitus with hyperglycemia; I11.0 Hypertensive heart disease with heart failure; K44.9 Diaphragmatic hernia without obstruction or gangrene; D12.2 Benign neoplasm of ascending colon; I48.2 Chronic atrial fibrillation; F32.9 Major depressive disorder, single episode, unspecified; F41.9 Anxiety disorder, unspecified; D50.9 Iron deficiency anemia, unspecified; E78.5 Hyperlipidemia, unspecified; N40.0 Benign prostatic hyperplasia without lower urinary tract symptoms; K20.9 Esophagitis, unspecified; Z95.810 Presence of automatic (implantable) cardiac defibrillator; Z79.01 Long term (current) use of anticoagulants; Z79.4 Long term (current) use of insulin; Z87.891 Personal history of nicotine dependence; Z99.81 Dependence on supplemental oxygen
CPT/HCPCS: 36600; 71010; 80048; 80053; 80162; 82550; 82805; 82947; 82948; 83036; 83735; 83880; 84484; 85025; 85027; 85610; 85730; 86850; 86900; 86901; 88305; 88312; 93005; 94640; 94664; 96361; 96372; 96374; 96375; C9113; G0378; J1815; J2920; J7030

== ENCOUNTER 2017-02-13 04:11 | Inpatient (IN) | payer MEDICARE ==
[~2017-02-13] VITALS: Ht 188 cm; Wt 101.6 kg
[2017-02-13] VITALS (15 sets, daily range): BP systolic 116–154; BP diastolic 56–70; PULSE 69–92; RESP 16–24; TEMP 97.3–98.2; O2SAT 75–98
[~2017-02-13 04:11] MED LIST changes: +AMOX500C PO; -POTA10TA8 PO; +PRED10 PO; -TRAZ100T4 PO; -WARF-20 PO
--- NOTE | 2017-02-13 04:40 | PD ---
HPI Chief Complaint: Respiratory Distress Time Seen by Provider: 04:39 Travel History International Travel<30 days: No Contact w/Intl Traveler<30days: No Traveled to known affect area: No History of Present Illness HPI 81-year-old male came to the emergency room with history of shortness of breath. Upon arrival his oxygen saturation was in the 70s. Patient requires about 3 L of oxygen at home. His oxygen was bumped up to 4 L and oxygen saturation at rest went up to 99%. Patient has history of heart disease including congestive heart failure. He has a pacemaker. Patient says that he was recently taken off the Coumadin by his primary care. He looked very pale but upon asking he said he did not notice any blood in his stool. His is here with him who is giving additional history. No history of chest pain. Patient says that the shortness of breath is worse upon slightest exertion. Which would explain his hypoxia in triage because his drove him to the emergency room and when he ambulated from the parking lot to the triage his saturation drop. [facility] Past Medical History Narrative Medical List of his past medical, surgical, social and family history is reviewed from the nursing note. 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) Endocrine: Yes Gastrointestinal Disorders: No GERD: No Glaucoma: No Genitourinary: No Headaches: Yes (R/T SINUSITIS) Hepatitis: No Hiatal Hernia: No Hypertension: Yes Immune Disorder: No Implanted Vascular Access Dvce: Yes Kidney Stones: No Musculoskeletal: No Neurologic: No Psychiatric: Yes Reproductive: No Respiratory: Yes (COPD) Integumentary: Yes (RIGHT SECOND TOE INFECTION) Immunizations Current: No Migraines: No Radiation Therapy: No Renal Failure: No Seizures: No Sickle Cell Disease: No Sleep Apnea: Yes (CPAP AT NIGHT) Thyroid Disease: No Ulcer: No Past Surgical History Abdominal Surgery: Yes (HERNIA REPAIR) AICD: Yes Appendectomy: Yes Arteriovenous Shunt: No Body Medical Devices: KNEE REPLACEMENT LEFT AND RIGHT, AICD Cardiac Surgery: Yes (PACEMAKER) Cholecystectomy: Yes Ear Surgery: No Endocrine Surgery: No Eye Surgery: Yes (L & R EYE CATARACTS) Genitourinary Surgery: No Gynecologic Surgery: No Insulin Pump: No Joint Replacement: Yes (BILATERAL TKR) Neurologic Surgery: No Oral Surgery: No Pacemaker: Yes (REPLACED IN NOVEMBER 2016) Thoracic Surgery: No Other Surgery: Yes (pacemaker placement, herniated appendix) Social History Alcohol Use: No Tobacco Use: No Substance Use: No Allergies-Medications (Allergen,Severity, Reaction): Coded Allergies: MRI PRECAUTION (Verified Allergy, Severe, 02/13/17) Uncoded Allergies: STEROIDS (Adverse Reaction, Mild, 01/10/17) ELEVATED BLOOD SUGAR Comments List of his allergies reviewed from the nursing note. Reported Meds & Prescriptions Reported Meds & Active Scripts Active Oxygen tank (Oxygen) 1 Ea Tank 2 Liter JAKE.CANULA CONTINUOUS Oxygen Concentrator Portable Gaseous 2 L/min via Nasal Cannula Continuous For 99 months Amitriptyline (Amitriptyline HCl) 25 Mg Tab 25 Mg PO HS Digoxin 0.125 Mg Tab 0.125 Mg PO DAILY Reported Prednisone 10 Mg Tab 10 Mg PO DAILY Amoxicillin 500 Mg Cap 500 Mg PO BID Cormax Scalp Topical (Clobetasol Propionate) 0.05% Soln 1 Applic TOPICAL BID Gabapentin 300 Mg Cap 300 Mg PO TID Hydrocodone-Acetaminophen 5-325 mg Tab 2 Tab PO Q6H PRN Vitamin B12 (Cyanocobalamin) 100 Mcg Tab 100 Mcg PO DAILY Vitamin D3 (Cholecalciferol) 5,000 Unit Chew 5,000 Units CHEW DAILY Fish Oil + D3 (Fish Oil-Cholecalciferol) 1,200-1,000 Mg-Unit Cap 1 Cap PO DAILY Lorazepam 2 Mg Tab 2 Mg PO Q6H PRN Flonase Nasal [place] (Fluticasone Nasal [place]) 50 Mcg/Act [place] 100 Mcg EACH NARE BID Acarbose 100 Mg Tab 100 Mg PO BID Take with first bite of meal. Omeprazole 40 Mg Cap 40 Mg PO BID Atorvastatin (Atorvastatin Calcium) 40 Mg Tab 40 Mg PO DAILY Torsemide 20 Mg Tab 20 Mg PO TID Lisinopril 20 Mg Tab 20 Mg PO DAILY Bystolic (Nebivolol) 10 Mg Tab 10 Mg PO BID Finasteride 5 Mg Tab 5 Mg PO HS Do not crush. Narrative Medication List of his medications reviewed from the nursing note. Review of Systems Except as stated in HPI: all other systems reviewed are Neg Physical Exam Narrative GENERAL: Awake, alert, elderly, moderate distress SKIN: Focused skin assessment warm/dry. Pale HEAD: Atraumatic. Normocephalic. EYES: Pupils equal and round. No scleral icterus. No injection or drainage. Pallor ENT: No nasal bleeding or discharge. Mucous membranes pink and moist. NECK: Trachea midline. No JVD. CARDIOVASCULAR: Regular rate and rhythm. No murmur appreciated. RESPIRATORY: No accessory muscle use. Diminished air entry bilaterally with fine crackles in the base GASTROINTESTINAL: Abdomen soft, non-tender, nondistended. Hepatic and splenic margins not palpable. MUSCULOSKELETAL: No obvious deformities. No clubbing. No cyanosis. No edema. NEUROLOGICAL: Awake and alert. No obvious cranial nerve deficits. Motor grossly within normal limits. Normal speech. PSYCHIATRIC: Appropriate mood and affect; insight and judgment normal. Data Data Last Documented VS Vital Signs Date Time Temp Pulse Resp B/P Pulse Ox O2 Delivery O2 Flow Rate FiO2 02/13/17 04:26 69 20 96 Nasal Cannula 4 02/13/17 04:20 145/70 02/13/17 04:15 97.7 Orders Electrocardiogram (02/13/17 04:40) Basic Metabolic Panel (Bmp) (02/13/17 04:40) Ckmb (Isoenzyme) Profile (02/13/17 04:40) Complete Blood Count With Diff (02/13/17 04:40) Magnesium (Mg) (02/13/17 04:40) Prothrombin Time / Inr (Pt) (02/13/17 04:40) Act Partial Throm Time (Ptt) (02/13/17 04:40) Troponin I (02/13/17 04:40) Chest, Single Ap (02/13/17 04:40) Ecg Monitoring (02/13/17 04:40) Bilateral Bp Monitoring (02/13/17 04:40) Iv Access Insert/Monitor (02/13/17 04:40) Oximetry (02/13/17 04:40) Oxygen Administration (02/13/17 04:40) Sodium Chloride 0.9% Flush (Ns Flush) (02/13/17 04:45) Type And Screen (02/13/17 04:40) Pantoprazole Inj (Protonix Inj) (02/13/17 05:45) Pantoprazole Inj (Protonix Inj) (02/13/17 05:45) Furosemide Inj (Lasix Inj) (02/13/17 06:00) Insulin Human Regular Inj (Novolin R Inj (02/13/17 06:00) Furosemide Inj (Lasix Inj) (02/13/17 09:00) Consult Gastroenterology (02/13/17 ) Methylprednisolone So Succ Inj (Solumedr (02/13/17 12:00) Methylprednisolone So Succ Inj (Solumedr (02/13/17 06:30) Budeson-Formot 160-4.5 Mg Inh (Symbicort (02/13/17 09:00) Bedside Glucose CRIS.AC&HS (02/13/17 06:20) Blood Glucose Goal (Criteria) (02/13/17 06:20) Hypoglycemia 70 Mg/Dl Or < (02/13/17 06:20) Notify Dr: Other (02/13/17 06:20) Dextrose 50% In Alexander (Vial) Inj (D50w (Vi (02/13/17 06:30) Glucagon Inj (Glucagon Inj) (02/13/17 06:30) Insulin Aspart Supplemtl Scale (Novolog (02/13/17 07:00) Admit To Inpatient (02/13/17 ) Vital Signs (Adult) Q4H (02/13/17 06:20) Activity Oob With Assistance (02/13/17 06:20) Fast Food Fry Cook / Telemetry .CONTINUOUS (02/13/17 06:20) Intake + Output CRIS.QSHIFT (02/13/17 06:20) Diet 1800 Ada Cons Carb (02/13/17 Breakfast) Sodium Chloride 0.9% Flush (Ns Flush) (02/13/17 06:30) Sodium Chloride 0.9% Flush (Ns Flush) (02/13/17 09:00) Ondansetron Inj (Zofran Inj) (02/13/17 06:30) Comprehensive Metabolic Panel (02/14/17 06:00) Complete Blood Count With Diff (02/14/17 06:00) Prothrombin Time / Inr (Pt) (02/14/17 06:00) Acetaminophen (Tylenol) (02/13/17 06:30) Acetamin-Hydrocod 325-5 Mg ([place] 5-325 (02/13/17 06:30) Morphine Inj (Morphine Inj) (02/13/17 06:30) Docusate Sodium-Senna (Helene-Colace) (02/13/17 09:00) Magnesium Hydroxide Liq (Milk Of Magnesi (02/13/17 06:30) Sennosides (Senokot) (02/13/17 06:30) Bisacodyl Supp (Dulcolax Supp) (02/13/17 06:30) Lactulose Liq (Lactulose Liq) (02/13/17 06:30) Inpatient Certification (02/13/17 ) Atorvastatin (Lipitor) (02/13/17 09:00) Digoxin (Lanoxin) (02/13/17 09:00) Finasteride (Proscar) (02/13/17 21:00) Albuterol-Ipratropium Neb (Duoneb Neb) (02/13/17 06:30) Labs Laboratory Tests Test 02/13/17 04:50 White Blood Count 6.4 TH/MM3 Red Blood Count 3.56 MIL/MM3 Hemoglobin 8.5 GM/DL Hematocrit 27.5 % Mean Corpuscular Volume 77.4 FL Mean Corpuscular Hemoglobin 23.8 PG Mean Corpuscular Hemoglobin 30.8 % Concent Red Cell Distribution Width 17.3 % Platelet Count 246 TH/MM3 Mean Platelet Volume 8.0 FL Neutrophils (%) (Auto) 86.5 % Lymphocytes (%) (Auto) 3.7 % Monocytes (%) (Auto) 8.0 % Eosinophils (%) (Auto) 0.6 % Basophils (%) (Auto) 1.2 % Neutrophils # (Auto) 5.5 TH/MM3 Lymphocytes # (Auto) 0.2 TH/MM3 Monocytes # (Auto) 0.5 TH/MM3 Eosinophils # (Auto) 0.0 TH/MM3 Basophils # (Auto) 0.1 TH/MM3 CBC Comment DIFF FINAL Differential Comment Prothrombin Time 11.6 SEC Prothromb Time International 1.0 RATIO Ratio Activated Partial 27.3 SEC Thromboplast Time Sodium Level 137 MEQ/L Potassium Level 4.7 MEQ/L Chloride Level 96 MEQ/L Carbon Dioxide Level 34.7 MEQ/L Anion Gap 6 MEQ/L Blood Urea Nitrogen 20 MG/DL Creatinine 1.13 MG/DL Estimat Glomerular Filtration 62 ML/MIN Rate Random Glucose 345 MG/DL Calcium Level 9.2 MG/DL Magnesium Level 2.1 MG/DL Total Creatine Kinase 42 U/L Troponin I LESS THAN 0.02 NG/ML Blood Type AB NEGATIVE Antibody Screen NEGATIVE MDM Medical Decision Making Medical Screen Exam Complete: Yes Emergency Medical Condition: Yes Medical Record Reviewed: Yes Interpretation(s) Twelve-lead EKG was reviewed by me. Paced rhythm. Heart rate of 69 bpm. Differential Diagnosis Symptomatic anemia, GI bleed, congestive heart failure Narrative Course 6:05 AM patient was given Protonix bolus and drip initially given his guaiac- positive stool. The blood test results came back and he is anemic but given his hemoglobin of 8.5 I do not plan to transfuse him. His chest x-ray suggestive of congestive heart failure and pleural effusion. I have ordered IV Lasix. Patient will need to be admitted and I discussed this with him and his and they are agreeable to the plan. I spoke with the hospitalist was accepted the case. 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 Critical Care Narrative Aggregate critical care time was 30 minutes. Time to perform other separately billable procedures was not included in the critical care time. My time did not include minutes spent treating any other patients simultaneously or on activities that did not directly contribute to the patient's treatment. The services I provided to this patient were to treat and/or prevent clinically significant deterioration that could result in: Hypoxia, GI bleed, anemia, Protonix bolus and drip I provided critical care services requiring my management, as noted below: Chart data review, documentation time, medication orders and management, vital sign assessments/reviewing monitor data, ordering and reviewing lab tests, ordering and interpreting/reviewing x-rays and diagnostic studies, care of the patient and discussion of the patient with the admitting physicians. Procedures EKG Prior to Arrival: No HemaPrompt Point of Care Internal Pos. & Neg. Controls: Passed Fecal Specimen Occult Blood: Positive Diagnosis Primary Impression: Hypoxia Additional Impressions: Exertional dyspnea Congestive heart failure Qualified Code: I50.9 - Acute congestive heart failure, unspecified congestive heart failure type Symptomatic anemia GI bleed Qualified Code: K92.2 - Gastrointestinal hemorrhage, unspecified gastrointestinal hemorrhage type Admitting Information Admitting Physician Requests: Admit Krystle Brizuela MD Feb 13, 2017 04:40
[2017-02-13] MEDS ORDERED: SODIUM CHLORIDE 0.9% FLUSH 10 ML FLUSH IVF PRN (04:45)
[2017-02-13 04:59] LABS: AUTOMATED NEUTROPHIL # 5.5 TH/MM3 (1.8-7.7); BASOPHIL # 0.1 TH/MM3 (0-0.2); BASOPHIL % 1.2 % (0.0-2.0); EOSINOPHIL % 0.6 % (0.0-4.0); HEMATOCRIT 27.5 % (39.0-51.0); HEMO FLAGS DIFF FINAL; LYMPH % 3.7 % (9.0-44.0); LYMPHOCYTE # 0.2 TH/MM3 (1.0-4.8); MEAN CELL VOLUME 77.4 FL (80.0-100.0); MEAN CORPUSCULAR HEMOGLOBIN 23.8 PG (27.0-34.0); MEAN CORPUSCULAR HGB CONC 30.8 % (32.0-36.0); NEUT % 86.5 % (16.0-70.0); PLATELET COUNT 246 TH/MM3 (150-450); RED BLOOD COUNT 3.56 MIL/MM3 (4.50-5.90); RED CELL DISTRIBUTION WIDTH 17.3 % (11.6-17.2); WHITE BLOOD COUNT 6.4 TH/MM3 (4.0-11.0)
[2017-02-13 05:12] LABS: ANION GAP 6 MEQ/L (5-15); BICARBONATE 34.7 MEQ/L (21.0-32.0); BLOOD UREA NITROGEN 20 MG/DL (7-18); CHLORIDE 96 MEQ/L (98-107); GLOMERULAR FILTRATION RATE 62 ML/MIN (>89); MAGNESIUM 2.1 MG/DL (1.5-2.5); POTASSIUM 4.7 MEQ/L (3.5-5.1); SODIUM (NA) 137 MEQ/L (136-145)
--- NOTE | 2017-02-13 05:12 | RADRPT ---
EXAM DATE/TIME: 02/13/2017 04:55 [facility] COMPARISON: CHEST SINGLE AP, January 25, 2017, 13:39. INDICATIONS : Chest pain x 1 day MEDICAL HISTORY : Cardiovascular disease. Hypertension SURGICAL HISTORY : Pacemaker. ENCOUNTER: Initial ACUITY: 1 day PAIN SCORE: 7/10 LOCATION: Bilateral chest FINDINGS: A single view of the chest demonstrates cardiomegaly with small bilateral pleural effusions greater t he left. There is pulmonary edema. Left-sided pacemaker/defibrillator is unchanged.. Osseous structu res are intact. CONCLUSION: 1. Cardiomegaly with pulmonary edema. 2. Small bilateral pleural effusions greater left. Navin Dominique MD on February 13, 2017 at 5:10 Board Certified Radiologist. This report was verified electronically.
[2017-02-13 05:16] LABS: APTT (PATIENT) 27.3 SEC (24.3-30.1); PROTHROMBIN TIME - PATIENT 11.6 SEC (9.8-11.6)
[2017-02-13 05:23] LABS: CREATINE KINASE 42 U/L (39-308)
[2017-02-13] MEDS ORDERED: PANTOPRAZOLE INJ 80 MG in SODIUM CHLORIDE 0.9% INJ 35 ML IV ONE (05:45)
[2017-02-13] MEDS ORDERED: FUROSEMIDE 40 MG/4 ML VIAL IV PUSH ONE (06:00)
[2017-02-13] MEDS ORDERED: INSULIN HUMAN REGULAR 1,000 UNITS/10 ML VIAL SQ ONE (06:00)
[2017-02-13] MEDS ORDERED: MAGNESIUM HYDROXIDE SUSP 30 ML CUP PO PRN (06:30)
[2017-02-13] MEDS ORDERED: GLUCAGON 1 MG/ML VIAL OTHER PRN (06:30)
[2017-02-13] MEDS ORDERED: SENNOSIDES 8.6 MG TAB PO PRN (06:30)
[2017-02-13] MEDS ORDERED: SODIUM CHLORIDE 0.9% FLUSH 10 ML FLUSH IV FLUSH PRN (06:30)
[2017-02-13] MEDS ORDERED: RESP: ALBUTEROL 2.5 MG/IPRATROPIUM 0.5 MG NEB (PRN) NEB (06:30)
[2017-02-13] MEDS ORDERED: methylPREDNISolone SOD SUCC 125 MG/2 ML VIAL IV PUSH ONE (06:30)
[2017-02-13] MEDS ORDERED: MORPHINE SULFATE 4 MG/ML INJ IV PRN (06:30)
[2017-02-13] MEDS ORDERED: ACETAMINOPHEN 325 MG TAB PO PRN (06:30)
[2017-02-13] MEDS ORDERED: ACETAMINOPHEN/HYDROcodone 325 MG/5 MG TAB PO PRN (06:30)
[2017-02-13] MEDS ORDERED: BISACODYL 10 MG SUPP RECTAL PRN (06:30)
[2017-02-13] MEDS ORDERED: ONDANSETRON HCL 4 MG/2 ML VIAL IVP PRN (06:30)
[2017-02-13] MEDS ORDERED: LACTULOSE SYRUP 20 GM/30 ML CUP PO PRN (06:30)
[2017-02-13] MEDS ORDERED: DEXTROSE 50% IN WATER 50 ML VIAL(D50) IV PRN (06:30)
[2017-02-13] MEDS: PANTOPRAZOLE INJ 80 MG in SODIUM CHLORIDE 0.9% INJ 100 ML IV SCH ×2 (07:00→15:25)
[2017-02-13] MEDS ORDERED: INSULIN ASPART SUPPLEMENTAL SCALE SQ SCH (07:00)
[2017-02-13] MEDS: ATORVASTATIN 40 MG TAB PO SCH (09:16)
[2017-02-13] MEDS: DOCUSATE SODIUM 50 MG/SENNA 8.6 MG TAB PO SCH ×2 (09:16→20:19)
[2017-02-13] MEDS: DIGOXIN 0.125 MG TAB PO SCH (09:16)
[2017-02-13] MEDS: FUROSEMIDE 20 MG/2 ML VIAL IV PUSH SCH (09:17)
[2017-02-13] MEDS: SODIUM CHLORIDE 0.9% FLUSH 10 ML FLUSH IV FLUSH SCH ×2 (09:18→20:25)
[2017-02-13] MEDS: BUDESONIDE-FORMOTEROL 160/4.5 MCG INHALER INH SCH ×2 (10:29→20:18)
[2017-02-13] MEDS: LORazepam 2 MG TAB PO PRN (10:29)
[2017-02-13 11:12] LABS: TRANSFERRIN IRON PROFILE 364 MG/DL (200-360)
[2017-02-13 11:15] LABS: FERRITIN 34 NG/ML (26-388)
[2017-02-13] MEDS: INSULIN DETEMIR 100 UNITS/ML VIAL SQ SCH ×2 (11:26→20:25)
[2017-02-13] MEDS: INSULIN ASPART SUPPLEMENTAL SCALE SQ SCH ×3 (11:27→20:24)
[2017-02-13] MEDS ORDERED: methylPREDNISolone SOD SUCC 40 MG/1 ML VIAL IV PUSH SCH ×2 (12:00→21:00)
--- NOTE | 2017-02-13 12:10 | EKG ---
Date Performed: 02/13/2017 Time Performed: 04:35:21 PTAGE: 81 years EKG: ELECTRONIC VENTRICULAR PACEMAKER Since previous tracing, no significant change noted ABNORM AL RHYTHM ECG PREVIOUS TRACING : 01/25/2017 14.57.49 DOCTOR: Eric Tijerina Interpretating Date/Time 02/13/2017 12:10:33
[2017-02-13] MEDS: GABAPENTIN 300 MG CAP PO SCH ×2 (12:31→18:00)
[2017-02-13] MEDS ORDERED: SODIUM CHLOR 0.9% 250 ML INJ 250 ML IV ONE (15:00)
[2017-02-13] MEDS ORDERED: FUROSEMIDE 20 MG/2 ML VIAL IV PUSH ONE (15:00)
--- NOTE | 2017-02-13 17:41 | MB ---
cc: NOE BURCH DATE OF CONSULTATION 02/13/2017 REASON FOR CONSULTATION Anemia. HISTORY OF THE PRESENT ILLNESS Thank you for the consultation. A pleasant 81-year-old gentleman who has came to the emergency room because of shortness of breath. Apparently the patient had a recent pacemaker for congestive heart failure and he stated that since it was placed he was having issue with shortness of breath and some discomfort but then it became so severe and his blood count was drifting down, so his primary care took him off of Coumadin. His symptoms became worse and his brought him because of that. The patient denied any chest pain but he has dyspnea on exertion and shortness of breath. He denied any nausea, vomiting. No hematemesis. No black stool. No diarrhea or constipation. He denied any previous GI symptoms. The patient had a colonoscopy and endoscopy recently and it shows colon polyps, tubular adenoma and mild inflammation of the stomach, negative for H. Pylori. REVIEW OF SYSTEMS All 12-point negative except HPI. PAST SURGICAL HISTORY Significant for: 1. Hernia repair. 2. Appendectomy. 3. Knee replacement. 4. AICD placement. 5. Cholecystectomy. 6. Cataract surgery on both eyes. SOCIAL HISTORY Negative for tobacco, drug or alcohol. ALLERGIES MRI CONTRAST AND STEROIDS. MEDICATIONS Reviewed in the chart. PAST MEDICAL HISTORY Significant for: 1. Arthritis. 2. Atrial fibrillation. 3. Depression. 4. Skin cancer. 5. Congestive heart failure. 6. Hypercholesterolemia. 7. Hearing loss. 8. Vision impairment that was repaired with . PHYSICAL EXAMINATION GENERAL: Alert, oriented, no acute distress at this time. VITAL SIGNS: Stable. HEENT: Pupils are round and reactive to light. NECK: Supple. CHEST: Clear to auscultation and percussion. CARDIOVASCULAR: Regular rate and rhythm, not in A fib. No murmur or gallop. ABDOMEN: Soft, nondistended. Positive bowel sounds. No hepatosplenomegaly. EXTREMITIES: No edema, clubbing or cyanosis. NEUROLOGIC: Alert, oriented, no acute deficits. Gross unremarkable movement. PSYCHOLOGIC: Appropriate affect. LABORATORY DATA Iron study, iron was 43, saturation 8.4. BUN 20, creatinine 1.13, white count 6.4. Hemoglobin 8.5, platelet 246. ASSESSMENT/PLAN A pleasant 81-year-old gentleman who has anemia. His hemoglobin was persistently low from previous admission and since he had the surgery, most likely induced by anticoagulation. Could be a small bowel. Since he already had an upper endoscopy and a colonoscopy, I doubt that this would be needed to be repeated. I would suggest that the patient get treated symptomatically and continued treatment of his esophagitis and do a capsule endoscopy as an outpatient. We will follow the labs and if it continues to deteriorate we would consider repeating an endoscopy and colonoscopy. MD ESTELLA Bartholomew/CHRISTOPHER /5:18 PM /5:29 PM
[2017-02-13] MEDS ORDERED: INSULIN ASPART 1,000 UNITS/10 ML VIAL SQ ONE (18:00)
[2017-02-13 18:08] LABS: BLOOD GAS BASE EXCESS 8.1 mmol/L (-2-2); BLOOD GAS CARBOXYHEMOGLOBIN 2.7 % (0-4); BLOOD GAS HCO3 33 mmol/L (22-26); BLOOD GAS O2 HGB SATURATION 90 % (90-100); BLOOD GAS PCO2 52 mmHg (38-42); BLOOD GAS PO2 67 mmHg (61-120); BLOOD GAS TOTAL HGB 7.9 G/DL (12.0-16.0); TEMP CORR TO 98.6
[2017-02-13 18:09] LABS: CRITICAL VALUE YES; DRAW SITE LT RADIAL; LITER FLOW 3 L/M; OXYGEN DEVICE NASAL CANNULA
[2017-02-13 18:10] LABS: NUMBER OF ARTERIAL PUNCTURES 1; STAT NO; ULNAR PULSE PRESENT
--- NOTE | 2017-02-13 18:12 | HHI.HP ---
[facility] Phyllis Moran MD Admission Diagnosis hypoxia, congestive heart failure, symptomatic anemia Diagnoses: Travel History International Travel<30 Days: No Contact w/Intl Traveler <30 Da: No Traveled to Known Affected Are: No History of Present Illness 81-year-old male with history of diabetes, atrial fibrillation with pacemaker, type 2 diabetes mellitus, COPD, hypertension, CHF, who presents with a three- week history of gradually worsening shortness of breath on exertion. He comes in today due to inability to keep oxygen saturations acceptable on 3 L of oxygen at home. He denies any chest pain. He does report a three-week history of paroxysmal nocturnal dyspnea, as well as three-day history of worsening bilateral lower extremity edema. He denies any new cough. Denies any sore throat. Denies any cold symptoms. -Patient with recent admission earlier this month where he was treated for COPD exacerbation, anemia. Workup without any acute bleeding, only found small tubular adenoma Review of Systems performed and negative except for HPI and past medical history. Past Family Social History Past Medical History 2 diabetes mellitus Atrial fibrillation with pacer Hypertension Anxiety Depression Ischemic encephalopathy Arthritis COPD Skin cancer Past Surgical History AICD/pacer placement Hernia repair Appendectomy Bilateral knee repair Bilateral cataract surgery Cholecystectomy Reported Medications Reported Meds & Active Scripts Active Oxygen tank (Oxygen) 1 Ea Tank 2 Liter JAKE.CANULA CONTINUOUS Oxygen Concentrator Portable Gaseous 2 L/min via Nasal Cannula Continuous For 99 months Amitriptyline (Amitriptyline HCl) 25 Mg Tab 25 Mg PO HS Digoxin 0.125 Mg Tab 0.125 Mg PO DAILY Reported Prednisone 10 Mg Tab 10 Mg PO DAILY Amoxicillin 500 Mg Cap 500 Mg PO BID Cormax Scalp Topical (Clobetasol Propionate) 0.05% Soln 1 Applic TOPICAL BID Gabapentin 300 Mg Cap 300 Mg PO TID Hydrocodone-Acetaminophen 5-325 mg Tab 2 Tab PO Q6H PRN Vitamin B12 (Cyanocobalamin) 100 Mcg Tab 100 Mcg PO DAILY Vitamin D3 (Cholecalciferol) 5,000 Unit Chew 5,000 Units CHEW DAILY Fish Oil + D3 (Fish Oil-Cholecalciferol) 1,200-1,000 Mg-Unit Cap 1 Cap PO DAILY Lorazepam 2 Mg Tab 2 Mg PO Q6H PRN Flonase Nasal Azle (Fluticasone Nasal Azle) 50 Mcg/Act Azle 100 Mcg EACH NARE BID Acarbose 100 Mg Tab 100 Mg PO BID Take with first bite of meal. Omeprazole 40 Mg Cap 40 Mg PO BID Atorvastatin (Atorvastatin Calcium) 40 Mg Tab 40 Mg PO DAILY Torsemide 20 Mg Tab 20 Mg PO TID Lisinopril 20 Mg Tab 20 Mg PO DAILY Bystolic (Nebivolol) 10 Mg Tab 10 Mg PO BID Finasteride 5 Mg Tab 5 Mg PO HS Do not crush. Allergies: Coded Allergies: MRI PRECAUTION (Verified Allergy, Severe, 02/13/17) Uncoded Allergies: STEROIDS (Adverse Reaction, Mild, 01/10/17) ELEVATED BLOOD SUGAR Family History Patient states that both of his parents in their 80s from unknown causes. Social History Patient previously smoked 2 packs per day for 40 years, quitting 20 years ago. Patient says he quit drinking 20 years ago. Denies illicit drug use. Lives with his . Physical Exam Vital Signs Vital Signs Date Time Temp Pulse Resp B/P Pulse Ox O2 Delivery O2 Flow Rate FiO2 02/13/17 17:46 92 Nasal Cannula 3.00 02/13/17 17:35 97.5 71 18 154/65 91 02/13/17 17:15 98.0 74 16 125/61 92 02/13/17 16:45 98.2 81 16 128/60 91 02/13/17 14:30 98.0 70 18 116/56 90 02/13/17 12:10 97.3 70 18 148/67 93 02/13/17 10:00 69 02/13/17 08:35 97.5 92 16 147/68 92 02/13/17 08:10 Nasal Cannula 4.00 02/13/17 06:59 98 Nasal Cannula 4 02/13/17 06:58 98 Nasal Cannula 4 02/13/17 06:56 70 16 145/65 95 Nasal Cannula 4 02/13/17 06:45 96 Nasal Cannula 4.00 02/13/17 04:26 69 20 96 Nasal Cannula 4 02/13/17 04:20 70 20 145/70 86 02/13/17 04:15 97.7 70 24 129/58 75 Nasal Cannula Physical Exam GENERAL: This is a well-nourished, well-developed patient,who appears somewhat short of breath.he is alert and oriented 3. SKIN: No rashes, ecchymoses or lesions. Cool and dry. HEAD: Atraumatic. Normocephalic. No temporal or scalp tenderness. EYES: Pupils equal round and reactive. Extraocular motions intact. No scleral icterus. No injection or drainage. ENT: Nose without bleeding, purulent drainage or septal hematoma. Throat without erythema, tonsillar hypertrophy or exudate. Uvula midline. Airway patent. NECK: Trachea midline. No lymphadenopathy. positive JVD.Supple, nontender, no meningeal signs. CARDIOVASCULAR: Regular rate and rhythm without murmurs, gallops, or rubs. RESPIRATORY: crackles bilateral lung bases. No rhonchi. GASTROINTESTINAL: Abdomen soft, non-tender, nondistended. No hepato-splenomegaly , or palpable masses. No guarding. MUSCULOSKELETAL: Extremities without clubbing, cyanosis. No joint tenderness, effusion. +2 bilateral lower extremity edema to mid calf. No calf tenderness. Negative Homans sign bilaterally. NEUROLOGICAL: Awake and alert. Cranial nerves II through XII intact. Motor and sensory grossly within normal limits. Five out of 5 muscle strength in all muscle groups. Normal speech. Laboratory Laboratory Tests Test 02/13/17 02/13/17 04:50 14:56 White Blood Count 6.4 Red Blood Count 3.56 Hemoglobin 8.5 Hematocrit 27.5 Mean Corpuscular Volume 77.4 Mean Corpuscular Hemoglobin 23.8 Mean Corpuscular Hemoglobin 30.8 Concent Red Cell Distribution Width 17.3 Platelet Count 246 Mean Platelet Volume 8.0 Neutrophils (%) (Auto) 86.5 Lymphocytes (%) (Auto) 3.7 Monocytes (%) (Auto) 8.0 Eosinophils (%) (Auto) 0.6 Basophils (%) (Auto) 1.2 Neutrophils # (Auto) 5.5 Lymphocytes # (Auto) 0.2 Monocytes # (Auto) 0.5 Eosinophils # (Auto) 0.0 Basophils # (Auto) 0.1 CBC Comment DIFF FINAL Differential Comment Prothrombin Time 11.6 Prothromb Time International 1.0 Ratio Activated Partial 27.3 Thromboplast Time Sodium Level 137 Potassium Level 4.7 Chloride Level 96 Carbon Dioxide Level 34.7 Anion Gap 6 Blood Urea Nitrogen 20 Creatinine 1.13 Estimat Glomerular Filtration 62 Rate Random Glucose 345 Calcium Level 9.2 Magnesium Level 2.1 Iron Level 43 Total Iron Binding Capacity 510 Percent Iron Saturation 8.4 Ferritin 34 Total Creatine Kinase 42 Troponin I LESS THAN 0.02 B-Type Natriuretic Peptide 309 Blood Type AB NEGATIVE AB NEGATIVE Antibody Screen NEGATIVE Crossmatch Leukocyte-Reduced Red Blood Cells Blood Bank Comment Result Diagram: 02/13/17 0450 02/13/17 045 Imaging Last Impressions Chest X-Ray 02/13/17439 Signed Impressions: Service Date/Time: Monday, February 13, 2017 04:55 - CONCLUSION: 1. Cardiomegaly with pulmonary edema. 2. Small bilateral pleural effusions greater left. Navin Dominique MD Assessment and Plan Assessment and Plan //Suspected GI bleed //Anemia. Acute. Symptomatic -Recent GI workup with colonic polyp -Patient is reported three-week history of fatigue coincides with anemia -PPI -Every 8h hemoglobin. Transfuse 1 unit on admission //Possible COPD exacerbation -Continue nebs. I do not feel COPD exacerbation is a current issue, have discontinued steroids. Steroids would worsen any ulcer or CHF exacerbation. Close monitoring however. //Fatigue. -Likely secondary to anemia. Treatment for GI bleed, CHF exacerbation //Diabetes mellitus -Hyperglycemia and 300s on admission. Subsequently up to 400s after steroids on admission. Expect secondary to steroids. -Place on insulin sliding scale, Levemir. Diabetic diet. Discontinue steroids. //Anxiety. Chronic. Continue Ativan as necessary. //CHF exacerbation. //Atrial fibrillation with pacer //Possible hypoxic respiratory failure //Bilateral pulmonary edema -Chest x-ray on admission reviewed with pulmonary edema, small bilateral pleural effusions. -Recent echocardiogram 01/11/17 reviewed with ejection fraction 55% -BNP in the 300s. Higher than baseline. Strict intake and output monitoring. IV Lasix. -Not on warfarin since last admission.. -Continue his digoxin. Continue beta mauro. Continue LEYLA inhibitor. -ABG ending. -Patient has pacer, with QRS complex 180, rather wide. Could be candidate for AV-optimization. Pacer interrogation Consult cardiology. //Hypertension. -Blood pressure acceptable on admission. Continue home blood pressure meds. We 'll continue to monitor. //Depression. Chronic. Denies any SI. Continue antidepressant. //BPH. Continue finasteride //DVT prophylaxis. Discussed Condition With patient, nurse, at bedside, tour conductor. Physician Certification 2 Midnight Certification Type: Admission for Inpatient Services Order for Inpatient Services The services are ordered in accordance with Medicare regulations or non- Medicare payer requirements, as applicable. In the case of services not specified as inpatient-only, they are appropriately provided as inpatient services in accordance with the 2-midnight benchmark. Estimated LOS (days): 3 days is the estimated time the patient will need to remain in the hospital, assuming treatment plan goals are met and no additional complications. Post-Hospital Plan: Not yet determined Maximo White MD Feb 13, 2017 18:12
[2017-02-13] MEDS: AMITRIPTYLINE HCL 25 MG TAB PO SCH (20:19)
[2017-02-13] MEDS: FINASTERIDE 5 MG TAB PO SCH (20:19)
[2017-02-13] MEDS: NEBIVOLOL 10 MG TAB PO SCH (20:23)
[2017-02-13 21:41] LABS: HEMATOCRIT 24.8 % (39.0-51.0); REVIEW FLAG FINAL
[2017-02-14] VITALS (12 sets, daily range): BP systolic 119–159; BP diastolic 58–71; PULSE 69–70; RESP 18–20; TEMP 97.5–98; O2SAT 92–99
[2017-02-14 01:37] LABS: AUTOMATED NEUTROPHIL # 4.5 TH/MM3 (1.8-7.7); BASOPHIL % 0.4 % (0.0-2.0); EOSINOPHIL % 0.2 % (0.0-4.0); HEMATOCRIT 23.5 % (39.0-51.0); HEMO FLAGS DIFF FINAL; LYMPH % 3.5 % (9.0-44.0); LYMPHOCYTE # 0.2 TH/MM3 (1.0-4.8); MEAN CELL VOLUME 75.7 FL (80.0-100.0); MEAN CORPUSCULAR HEMOGLOBIN 24.8 PG (27.0-34.0); MEAN CORPUSCULAR HGB CONC 32.7 % (32.0-36.0); MONO % 7.5 % (0.0-8.0); NEUT % 88.4 % (16.0-70.0); PLATELET COUNT 229 TH/MM3 (150-450); RED BLOOD COUNT 3.11 MIL/MM3 (4.50-5.90); RED CELL DISTRIBUTION WIDTH 16.9 % (11.6-17.2); WHITE BLOOD COUNT 5.1 TH/MM3 (4.0-11.0)
[2017-02-14] MEDS: PANTOPRAZOLE INJ 80 MG in SODIUM CHLORIDE 0.9% INJ 100 ML IV SCH ×3 (01:41→21:45)
[2017-02-14] MEDS ORDERED: SODIUM CHLOR 0.9% 250 ML INJ 250 ML IV ONE (01:45)
[2017-02-14] MEDS ORDERED: FUROSEMIDE 20 MG/2 ML VIAL IV PRN (01:45)
[2017-02-14 01:47] LABS: INTERNATIONAL NORMALIZED RATIO 1.1 RATIO; PROTHROMBIN TIME - PATIENT 12.3 SEC (9.8-11.6)
[2017-02-14 01:54] LABS: ALT (GPT) 12 U/L (12-78); ANION GAP 5 MEQ/L (5-15); AST (GOT) 6 U/L (15-37); BICARBONATE 37.2 MEQ/L (21.0-32.0); BLOOD UREA NITROGEN 29 MG/DL (7-18); CHLORIDE 96 MEQ/L (98-107); GLOMERULAR FILTRATION RATE 54 ML/MIN (>89); POTASSIUM 4.4 MEQ/L (3.5-5.1); SODIUM (NA) 138 MEQ/L (136-145)
[2017-02-14 01:56] LABS: ALKALINE PHOSPHATASE 29 U/L (45-117); TOTAL BILIRUBIN ADULT 0.6 MG/DL (0.2-1.0)
[2017-02-14] MEDS: LORazepam 2 MG TAB PO PRN ×3 (03:24→17:34)
[2017-02-14] MEDS: INSULIN ASPART SUPPLEMENTAL SCALE SQ SCH ×4 (06:17→21:16)
[2017-02-14 08:23] LABS: HEMATOCRIT 28.1 % (39.0-51.0); MEAN CELL VOLUME 77.8 FL (80.0-100.0); MEAN CORPUSCULAR HEMOGLOBIN 24.5 PG (27.0-34.0); MEAN CORPUSCULAR HGB CONC 31.6 % (32.0-36.0); PLATELET COUNT 247 TH/MM3 (150-450); RED BLOOD COUNT 3.61 MIL/MM3 (4.50-5.90); RED CELL DISTRIBUTION WIDTH 17.2 % (11.6-17.2); REVIEW FLAG FINAL; WHITE BLOOD COUNT 7.2 TH/MM3 (4.0-11.0)
[2017-02-14] MEDS: DOCUSATE SODIUM 50 MG/SENNA 8.6 MG TAB PO SCH ×2 (09:08→21:19)
[2017-02-14] MEDS: ATORVASTATIN 40 MG TAB PO SCH (09:08)
[2017-02-14] MEDS: GABAPENTIN 300 MG CAP PO SCH ×3 (09:08→17:34)
[2017-02-14] MEDS: DIGOXIN 0.125 MG TAB PO SCH (09:09)
[2017-02-14] MEDS: NEBIVOLOL 10 MG TAB PO SCH ×2 (09:09→21:19)
[2017-02-14] MEDS: LISINOPRIL 20 MG TAB PO SCH (09:09)
[2017-02-14] MEDS: FUROSEMIDE 20 MG/2 ML VIAL IV PUSH SCH ×2 (09:09→17:34)
[2017-02-14] MEDS: SODIUM CHLORIDE 0.9% FLUSH 10 ML FLUSH IV FLUSH SCH ×2 (09:10→21:19)
[2017-02-14] MEDS: BUDESONIDE-FORMOTEROL 160/4.5 MCG INHALER INH SCH ×2 (09:10→21:00)
[2017-02-14] MEDS: INSULIN DETEMIR 100 UNITS/ML VIAL SQ SCH ×2 (09:13→21:00)
[2017-02-14 15:14] LABS: HEMOGLOBIN A1a 1.3 %; HEMOGLOBIN A1b 2.2 %; HEMOGLOBIN Ao 80.3 %; HEMOGLOBIN LA1C 2.6 %
--- NOTE | 2017-02-14 15:24 | HHI.GIFU ---
Subjective Remarks Pt OOB. No complaints, no bleeding. Objective Vitals I&O Vital Signs Date Time Temp Pulse Resp B/P Pulse Ox O2 Delivery O2 Flow Rate FiO2 02/14/17 13:36 95 Nasal Cannula 3.00 02/14/17 12:00 97.8 70 20 122/58 92 02/14/17 08:00 98.0 69 20 159/71 97 02/14/17 05:44 98.0 70 18 124/66 95 02/14/17 04:00 98.0 70 20 119/59 96 02/14/17 04:00 Nasal Cannula 4.00 02/14/17 03:20 98.0 70 20 119/59 96 02/14/17 03:03 97.8 69 20 119/59 95 02/14/17 00:00 97.6 70 18 128/60 97 02/14/17 00:00 Nasal Cannula 4.00 02/13/17 20:00 Nasal Cannula 4.00 02/13/17 20:00 98.1 71 18 119/58 93 02/13/17 20:00 71 02/13/17 19:30 98.1 71 18 119/58 93 02/13/17 17:46 92 Nasal Cannula 3.00 02/13/17 17:35 97.5 71 18 154/65 91 02/13/17 17:15 98.0 74 16 125/61 92 02/13/17 16:45 98.2 81 16 128/60 91 I/O 02/13/17 02/13/17 02/13/17 02/14/17 02/14/17 02/14/17 07:00 15:00 23:00 07:00 15:00 23:00 Intake Total 603 ml 720 ml 1420 ml Output Total 1400 ml 500 ml 900 ml 200 ml Balance -1400 ml 103 ml -180 ml 1220 ml Intake Oral 240 ml 720 ml 1420 ml IV Total 363 ml Output Urine Total 1400 ml 500 ml 900 ml 200 ml # Voids 2 # Bowel Movements 0 0 0 Laboratory Laboratory Tests Test 02/13/17 02/13/17 02/14/17 02/14/17 17:55 21:11 01:28 01:58 Blood Gas Puncture Site LT RADIAL Blood Gas Patient Temperature 98.6 Blood Gas HCO3 33 Blood Gas Base Excess 8.1 Blood Gas Oxygen Saturation 90 Arterial Blood pH 7.42 Arterial Blood Partial 52 Pressure CO2 Arterial Blood Partial 67 Pressure O2 Arterial Blood Oxygen Content 10.0 Arterial Blood 2.7 Carboxyhemoglobin Arterial Blood Methemoglobin 1.0 Blood Gas Hemoglobin 7.9 Oxygen Delivery Device NASAL CANNULA Blood Gas Liter Flow 3 Hemoglobin 7.6 7.7 Hematocrit 24.8 23.5 White Blood Count 5.1 Red Blood Count 3.11 Mean Corpuscular Volume 75.7 Mean Corpuscular Hemoglobin 24.8 Mean Corpuscular Hemoglobin 32.7 Concent Red Cell Distribution Width 16.9 Platelet Count 229 Mean Platelet Volume 8.3 Neutrophils (%) (Auto) 88.4 Lymphocytes (%) (Auto) 3.5 Monocytes (%) (Auto) 7.5 Eosinophils (%) (Auto) 0.2 Basophils (%) (Auto) 0.4 Neutrophils # (Auto) 4.5 Lymphocytes # (Auto) 0.2 Monocytes # (Auto) 0.4 Eosinophils # (Auto) 0.0 Basophils # (Auto) 0.0 CBC Comment DIFF FINAL Differential Comment Prothrombin Time 12.3 Prothromb Time International 1.1 Ratio Sodium Level 138 Potassium Level 4.4 Chloride Level 96 Carbon Dioxide Level 37.2 Anion Gap 5 Blood Urea Nitrogen 29 Creatinine 1.29 Estimat Glomerular Filtration 54 Rate Random Glucose 257 Calcium Level 8.8 Total Bilirubin 0.6 Aspartate Amino Transf 6 (AST/SGOT) Alanine Aminotransferase 12 (ALT/SGPT) Alkaline Phosphatase 29 Total Protein 6.1 Albumin 2.8 Blood Type AB NEGATIVE Crossmatch Leukocyte-Reduced Red Blood Cells Blood Bank Comment Test 02/14/17 07:05 White Blood Count 7.2 Red Blood Count 3.61 Hemoglobin 8.9 Hematocrit 28.1 Mean Corpuscular Volume 77.8 Mean Corpuscular Hemoglobin 24.5 Mean Corpuscular Hemoglobin 31.6 Concent Red Cell Distribution Width 17.2 Platelet Count 247 Mean Platelet Volume 8.4 Physical Exam HEENT: PERRL; normocephalic; atraumatic; no jaundice. CHEST: CTA CARDIAC: RRR ABDOMEN: Soft, nondistended, nontender; no hepatosplenomegaly; bowel sounds are present in all four quadrants. EXTREMITIES: No clubbing, cyanosis, or edema. SKIN: Normal; no rash; no jaundice. PHILOSOPHY FACULTY: No focal deficits; alert and oriented times three. Assessment and Plan Plan ASSESSMENT - anemia - stable since yesterday. persistently low from previous admission, likely induced by anticoagulation. recent EGD/colonoscopy showing colon polyps, tubular adenoma, mild inflammation stomach, h pylori neg. Pt denies blood in stool, hematemesis. PLAN - supportive care - monitor HH - transfuse if needed - capsule endoscopy as outpatient - if HH continues to deteriorate, consider repeat EGD/colonoscopy. - continue PPI This pt seen by myself and Dr Bocanegra and this note is written on his behalf. Noemy Chavis Feb 14, 2017 15:24
[2017-02-14] MEDS ORDERED: IRON SUCROSE INJ 100 MG in SODIUM CHLORIDE 0.9% INJ 100 ML IV ONE (16:30)
--- NOTE | 2017-02-14 20:10 | HHI.PR ---
Subjective Remarks Patient seen today around noon. States that fatigue is improved. No bleeding. Denies any chest pain. Objective Vital Signs Date Time Temp Pulse Resp B/P Pulse Ox O2 Delivery O2 Flow Rate FiO2 02/14/17 16:00 98.0 70 20 138/67 97 02/14/17 13:36 95 Nasal Cannula 3.00 02/14/17 12:00 97.8 70 20 122/58 92 02/14/17 09:00 Nasal Cannula 4.00 02/14/17 08:38 69 02/14/17 08:00 98.0 69 20 159/71 97 02/14/17 05:44 98.0 70 18 124/66 95 02/14/17 04:00 98.0 70 20 119/59 96 02/14/17 04:00 Nasal Cannula 4.00 02/14/17 03:20 98.0 70 20 119/59 96 02/14/17 03:03 97.8 69 20 119/59 95 02/14/17 00:00 97.6 70 18 128/60 97 02/14/17 00:00 Nasal Cannula 4.00 I/O 02/13/17 02/13/17 02/13/17 02/14/17 02/14/17 02/14/17 07:00 15:00 23:00 07:00 15:00 23:00 Intake Total 603 ml 720 ml 1420 ml Output Total 1400 ml 500 ml 900 ml 200 ml Balance -1400 ml 103 ml -180 ml 1220 ml Intake Oral 240 ml 720 ml 1420 ml IV Total 363 ml Output Urine Total 1400 ml 500 ml 900 ml 200 ml # Voids 2 # Bowel Movements 0 0 0 Result Diagram: 02/14/17 1905 02/14/17 0128 Objective Remarks GENERAL: patient sitting in bed. Appears comfortable. SKIN: Warm and dry. HEAD: Normocephalic. EYES: No scleral icterus. No injection or drainage. NECK: Supple, trachea midline. JVD improved from yesterday. CARDIOVASCULAR: Regular rate and rhythm without murmurs, gallops, or rubs. RESPIRATORY: Breath sounds equal bilaterally. No accessory muscle use. GASTROINTESTINAL: Abdomen soft, non-tender, nondistended. MUSCULOSKELETAL: No cyanosis. +1 bilateral lower extremity edema. Improved from yesterday. BACK: Nontender without obvious deformity. No CVA tenderness. A/P Assessment and Plan ===== 02/14/17======== /Iron deficiency Anemia. Hemoglobin replaced overnight. Continue to monitor. IV iron ordered. //CHF exacerbation- fluid overload improved. Bilateral lower extremity edema improving. Appreciate cardiology assistance. -Reviewed pacer interrogation. lead Impedence relatively stable over past month. //Hyperglycemia. Improved. A1c over 8. Restart acarbose 3 times daily. Continue to monitor. //Suspected GI bleed //Anemia. Acute. Symptomatic -Recent GI workup with colonic polyp -Patient is reported three-week history of fatigue coincides with anemia -PPI -Every 8h hemoglobin. Transfuse 1 unit on admission //Possible COPD exacerbation -Continue nebs. -Story status stable off of steroids. //Fatigue. -Improving. Likely secondary to anemia. Treatment for GI bleed, CHF exacerbation //Diabetes mellitus -Hyperglycemia and 300s on admission. Subsequently up to 400s after steroids on admission. Expect secondary to steroids. -Place on insulin sliding scale, Levemir. Diabetic diet. Discontinue steroids. //Anxiety. Chronic. Continue Ativan as necessary. //CHF exacerbation. //Atrial fibrillation with pacer //Possible hypoxic respiratory failure //Bilateral pulmonary edema -Chest x-ray on admission reviewed with pulmonary edema, small bilateral pleural effusions. -Recent echocardiogram 01/11/17 reviewed with ejection fraction 55% -BNP in the 300s. Higher than baseline. Strict intake and output monitoring. IV Lasix. -Not on warfarin since last admission.. -Continue his digoxin. Continue beta mauro. Continue LEYLA inhibitor. -ABG Pao2 in the 50s on 3 L -Patient has pacer, with QRS complex 180, rather wide. Could be candidate for AV-optimization. Pacer interrogation Consult cardiology. //Hypertension. -Blood pressure acceptable on admission. Continue home blood pressure meds. We 'll continue to monitor. //Depression. Chronic. Denies any SI. Continue antidepressant. //BPH. Continue finasteride //DVT prophylaxis. Maximo White MD Feb 14, 2017 20:10
[2017-02-14] MEDS: FINASTERIDE 5 MG TAB PO SCH (21:19)
[2017-02-14] MEDS: AMITRIPTYLINE HCL 25 MG TAB PO SCH (21:19)
--- NOTE | 2017-02-14 21:19 | MB ---
Cc:TEJ FLORES DO DATE OF CONSULTATION 02/14/2017 REASON FOR CONSULTATION Acute on chronic heart failure, possible pacemaker optimization. HISTORY OF PRESENT ILLNESS Denys Sanon is a pleasant 81-year-old male who presented originally to [facility] Emergency Room on February 13, 2017. His original complaint was shortness of breath. He states that he has had multiple episodes of this in the past and when he comes in the hospital after getting diuresed his ankles look much better and his breathing is better, but while at home he has difficulty with this. He denies current chest pain. He recently was here 2-3 weeks ago with a similar type episode of shortness of breath. At that time as there was a concern for a GI bleed his Coumadin was then stopped. He has been off of his Coumadin since. In speaking to him and his about their salt intake, it appears that he does not follow his diet very well. Him and his ate at [employer] 4-5 times per week as well as when eating at home do not watch their salt intake. PAST MEDICAL HISTORY 1. Type 2 diabetes mellitus. 2. Atrial fibrillation previously on Coumadin which was stopped due to GI bleed. 3. Recent GI bleed. 4. Hypertension. 5. Anxiety. 6. Depression. 7. Arthritis. 8. Severe COPD. 9. Skin cancer. PAST SURGICAL HISTORY 1. [employer] AICD placement. 2. Hernia repair. 3. Appendectomy. 4. Bilateral knee repair. 5. Bilateral cataract repair. ALLERGIES NO KNOWN DRUG ALLERGIES. MEDICATIONS 1. Finasteride 5 mg every night. 2. Acarbose 100 mg t.i.d. 3. Lisinopril 20 mg daily. 4. Gabapentin 300 mg t.i.d. 5. Amitriptyline 25 mg every night. 6. Lorazepam 2 mg every 6 hours as needed for anxiety. 7. Bystolic 10 mg b.i.d. 8. Digoxin 0.125 mg daily. 9. Fluticasone 100 mcg each nare b.i.d. 10. Lipitor 40 mg daily. 11. Torsemide 20 mg t.i.d. 12. Oxygen as needed. 13. Hydrocodone / acetaminophen 5/325 mg, 2 tablets every 6 hours as needed for pain. 14. Omeprazole 40 mg b.i.d. FAMILY HISTORY Denies premature coronary artery disease or sudden cardiac within the family. SOCIAL HISTORY The patient previously smoked but quit 20 years ago. Denies alcohol or drug abuse. REVIEW OF SYSTEMS 14-systems were reviewed including osteopathic pertinent positives and negatives above, otherwise negative. PHYSICAL EXAMINATION Bedtime Temperature 97.8, heart rate 70, blood pressure 122/58, respirations 20, pulse ox 95% on 3 liters. GENERAL: In general the patient appears well in no acute distress, alert, awake and oriented x3. HEENT: Extraocular muscles intact. Mucous membranes moist. NECK: Supple. No JVD at 45 degrees. No carotid bruits heard bilaterally. Carotid upstroke is brisk in nature. CARDIOVASCULAR: Heart is regular rate and rhythm. Positive first and second heart sounds with no noted murmurs, gallops or rubs. PMI is difficult to ascertain but does not appear displaced. LUNGS: Have decreased breath sounds at bilateral bases. ABDOMEN: Soft, nontender. Nondistended. No organomegaly noted. EXTREMITIES: Show 1+ pitting edema bilaterally. Femoral and distal pulses intact bilaterally. NEUROLOGIC: Neurologically no focal deficits. SKIN: Warm, dry and intact. OSTEOPATHIC: No kyphoscoliosis, lordosis or paraspinal tender points. LABORATORY FINDINGS Hemoglobin 8.9, hematocrit 28.1, platelets 247. Potassium 4.4, BUN 29, creatinine 1.29. BNP 309. Electrocardiogram (February 13, 2017 at 0435) V paced most likely biventricular in nature. IMPRESSION 1. Acute on chronic diastolic heart failure most likely due to noncompliance to sodium intake. 2. Chronic anemia with recent GI bleed. 3. History of atrial fibrillation not currently on anticoagulation due to GI bleed. 4. History of placement of a [employer] biventricular AICD. 5. History of hypertension. RECOMMENDATIONS 1. Mr. Sanon appears to be short of breath which may be partially due to his anemia but also due to his intake of excessive sodium. He states that him and his eat out four to five times at [employer] a week and I tried to explain to them that this was an excessive amount of salt as well as the salt that they use at home. This may be why he feels well when he leaves the hospital not only due to us diuresing him, but it changes his diet to a low-sodium diet. 2. As far as optimization of his pacemaker / AICD it was interrogated earlier and shows that he is pacing biventricularly 100% of the time. No further optimization needs be done at this time. 3. We will continue to hold off on anticoagulation as he had a recent GI bleed, this can be reassessed outpatient for consideration of restarting. 4. Further recommendations will be made based on the hospital course. Thank you for allowing me to see Denys Sanon. If there are any questions please do not hesitate to call. Tej Flores DO VGP/KK /4:03 PM /8:53 PM
[2017-02-15 04:37] VITALS: BP 144/74; PULSE 70; RESP 18; TEMP 98.4; O2SAT 97
[2017-02-15] MEDS: INSULIN ASPART SUPPLEMENTAL SCALE SQ SCH ×3 (06:05→12:01)
[2017-02-15] MEDS: PANTOPRAZOLE INJ 80 MG in SODIUM CHLORIDE 0.9% INJ 100 ML IV SCH (07:45)
[2017-02-15 08:00] VITALS: BP 148/74; PULSE 70; RESP 20; TEMP 98.8; O2SAT 98
[2017-02-15 08:03] VITALS: PULSE 73
[2017-02-15] MEDS: DIGOXIN 0.125 MG TAB PO SCH (08:25)
[2017-02-15] MEDS: GABAPENTIN 300 MG CAP PO SCH (08:25)
[2017-02-15] MEDS: ATORVASTATIN 40 MG TAB PO SCH (08:25)
[2017-02-15] MEDS: DOCUSATE SODIUM 50 MG/SENNA 8.6 MG TAB PO SCH (08:26)
[2017-02-15] MEDS: NEBIVOLOL 10 MG TAB PO SCH (08:26)
[2017-02-15] MEDS: LISINOPRIL 20 MG TAB PO SCH (08:26)
[2017-02-15] MEDS: INSULIN DETEMIR 100 UNITS/ML VIAL SQ SCH (08:27)
[2017-02-15] MEDS: SODIUM CHLORIDE 0.9% FLUSH 10 ML FLUSH IV FLUSH SCH (08:30)
[2017-02-15] MEDS: BUDESONIDE-FORMOTEROL 160/4.5 MCG INHALER INH SCH (08:32)
[2017-02-15] MEDS ORDERED: TORSEMIDE 20 MG TAB PO SCH (09:00)
[2017-02-15] MEDS ORDERED: ACARBOSE 100 MG PO SCH (09:00)
[2017-02-15 09:40] VITALS: O2SAT 96
[2017-02-15 09:58] LABS: AUTOMATED NEUTROPHIL # 6.2 TH/MM3 (1.8-7.7); BASOPHIL # 0.1 TH/MM3 (0-0.2); BASOPHIL % 1.3 % (0.0-2.0); EOSINOPHIL # 0.1 TH/MM3 (0-0.4); EOSINOPHIL % 1.6 % (0.0-4.0); HEMATOCRIT 30.5 % (39.0-51.0); HEMO FLAGS DIFF FINAL; LYMPH % 4.7 % (9.0-44.0); LYMPHOCYTE # 0.3 TH/MM3 (1.0-4.8); MEAN CELL VOLUME 77.2 FL (80.0-100.0); MEAN CORPUSCULAR HEMOGLOBIN 24.2 PG (27.0-34.0); MEAN CORPUSCULAR HGB CONC 31.4 % (32.0-36.0); MONO % 6.3 % (0.0-8.0); NEUT % 86.1 % (16.0-70.0); PLATELET COUNT 310 TH/MM3 (150-450); RED BLOOD COUNT 3.94 MIL/MM3 (4.50-5.90); RED CELL DISTRIBUTION WIDTH 17.7 % (11.6-17.2); WHITE BLOOD COUNT 7.2 TH/MM3 (4.0-11.0)
[2017-02-15] MEDS ORDERED: GABA300C5 PO (10:20)
[2017-02-15] MEDS ORDERED: SENN1TAB PO (10:21)
[2017-02-15] MEDS ORDERED: FERR200T PO (10:21)
[2017-02-15] MEDS ORDERED: VITA2000 PO (10:21)
--- NOTE | 2017-02-15 10:24 | HHI.FF ---
Face to Face Verification Diagnosis: (1) GI bleed (2) COPD (chronic obstructive pulmonary disease) (3) A-fib (4) Diastolic CHF, acute on chronic Home Health Nursing Order: CHF education Nursing assessment with vital signs Instructions: Patient will need to take daily weights. We did contact patient's primary care if weight goes up by more than 3 pounds in 2 days or more than 5 pounds in a week. Assistance Specialist Order: To Provide: Long range planning I have seen patient Denys Sanon on 02/15/17. My clinical findings support the need for the requested home health care services because: Med compliance is questionable I certify that my clinical findings support that this patient is homebound because: Hx COPD- exertion dyspnea/weakness Poor cardiac reserve Maximo White MD Feb 15, 2017 10:23
[2017-02-15 10:47] LABS: BICARBONATE 34.7 MEQ/L (21.0-32.0)
--- NOTE | 2017-02-15 13:10 | PD.CARD.PN ---
Subjective Subjective Remarks Patient seen earlier today, no chest pain, no shortness of breath Objective Medications Current Medications Sodium Chloride 2 ml 2 ml UNSCH PRN IVF FLUSH AFTER USING IV ACCESS; Start at 04:45; Stop 02/13/17 at 06:37; Status DC Pantoprazole Sodium 80 mg/ Sodium Chloride 35 ml @ 420 mls/hr ONCE ONCE IV Last administered on 02/13/17 07:00; Start 02/13/17 at 05:45; Stop 02/13/17 at 05:49; Status DC Pantoprazole Sodium/Sodium Chloride (Protonix Inj/NS Inj) 100 ml @ 10 mls/hr Q10H IV Last administered on 02/14/17 11:48; Start 02/13/17 at 05:45; Stop at 12:42; Status DC Furosemide (Lasix Inj) 40 mg ONCE ONCE IV PUSH Last administered on 02/13/17 06:00; Start 02/13/17 at 06:00; Stop 02/13/17 at 06:01; Status DC Insulin Human Regular (NovoLIN R INJ) 10 units ONCE ONCE SQ Last administered on 02/13/17 06:00; Start 02/13/17 at 06:00; Stop 02/13/17 at 06:01; Status DC Furosemide (Lasix Inj) 20 mg BID@09,18 IV PUSH Last administered on 02/14/17 17:34; Start 02/13/17 at 09:00; Stop 02/14/17 at 20:11; Status DC Albuterol/ Ipratropium (Duoneb Neb) 1 ampule Q4HR NEB PRN NEB SOB/WHEEZING; Start 02/13/17 at 06:30; Stop 02/15/17 at 12:42; Status DC Methylprednisolone Sodium Succinate (SoluMEDROL INJ) 40 mg Q6HR IV PUSH ; Start 02/13/17 at 12:00; Stop 02/13/17 at 12:00; Status DC Methylprednisolone Sodium Succinate (SoluMEDROL INJ) 125 mg ONCE ONCE IV PUSH Last administered on 02/13/17 07:17; Start 02/13/17 at 06:30; Stop 02/13/17 at 06:37; Status DC Budesonide/ Formoterol Fumarate (Symbicort 160-4.5 Inh) 2 puff Q12HR INH Last administered on 02/15/17 08:32; Start 02/13/17 at 09:00; Stop 02/15/17 at 12:42 ; Status DC Dextrose (D50w (Vial) Inj) 50 ml UNSCH PRN IV HYPOGLYCEMIA-SEE COMMENTS; Start 02/13/17 at 06:30; Stop 02/15/17 at 12:42; Status DC Glucagon (Glucagon Inj) 1 mg UNSCH PRN OTHER HYPOGLYCEMIA-SEE COMMENTS; Start 02/13/17 at 06:30; Stop 02/15/17 at 12:42; Status DC Insulin Aspart (NovoLOG SUPPLEMENTAL SCALE) 1 ACHS SLIDING SCALE SQ ; Start at 07:00; Stop 02/13/17 at 09:58; Status DC Sodium Chloride (NS Flush) 2 ml UNSCH PRN IV FLUSH FLUSH AFTER USING IV ACCESS ; Start 02/13/17 at 06:30; Stop 02/15/17 at 12:42; Status DC Sodium Chloride (NS Flush) 2 ml BID IV FLUSH Last administered on 02/14/17 21: 19; Start 02/13/17 at 09:00; Stop 02/15/17 at 12:42; Status DC Ondansetron HCl (Zofran Inj) 4 mg Q6H PRN IVP NAUSEA OR VOMITING; Start at 06:30; Stop 02/15/17 at 12:42; Status DC Acetaminophen (Tylenol) 650 mg Q6H PRN PO FEVER/PAIN SCALE 1 TO 2; Start at 06:30; Stop 02/15/17 at 12:42; Status DC Acetaminophen/ Hydrocodone Bitart ([place] 5-325 Mg) 1 tab Q4H PRN PO PAIN SCALE 3 TO 5 Last administered on 02/13/17 20:19; Start 02/13/17 at 06:30; Stop 02/15/17 at 12:42; Status DC Morphine Sulfate (Morphine Inj) 2 mg Q3H PRN IV Pain 6-10; Start 02/13/17 at 06 :30; Stop 02/15/17 at 12:42; Status DC Senna/Docusate Sodium (Helene-Colace) 1 tab BID PO Last administered on 08:26; Start 02/13/17 at 09:00; Stop 02/15/17 at 12:42; Status DC Magnesium Hydroxide (Milk Of Magnesia Liq) 30 ml Q12H PRN PO MILD - MODERATE CONSTIPATION; Start 02/13/17 at 06:30; Stop 02/15/17 at 12:42; Status DC Sennosides (Senokot) 17.2 mg Q12H PRN PO MODERATE - SEVERE CONSTIPATION; Start 02/13/17 at 06:30; Stop 02/15/17 at 12:42; Status DC Bisacodyl (Dulcolax Supp) 10 mg DAILY PRN RECTAL SEVERE CONSITIPATION; Start at 06:30; Stop 02/15/17 at 12:42; Status DC Lactulose (Lactulose Liq) 30 ml DAILY PRN PO SEVERE CONSITIPATION; Start at 06:30; Stop 02/15/17 at 12:42; Status DC Atorvastatin Calcium (Lipitor) 40 mg DAILY PO Last administered on 02/15/17 08 :25; Start 02/13/17 at 09:00; Stop 02/15/17 at 12:42; Status DC Digoxin (Lanoxin) 0.125 mg DAILY PO Last administered on 02/15/17 08:25; Start 02/13/17 at 09:00; Stop 02/15/17 at 12:42; Status DC Finasteride (Proscar) 5 mg HS PO Last administered on 02/14/17 21:19; Start at 21:00; Stop 02/15/17 at 12:42; Status DC Methylprednisolone Sodium Succinate (SoluMEDROL INJ) 40 mg BID IV PUSH ; Start 02/13/17 at 21:00; Stop 02/13/17 at 21:00; Status DC Insulin Aspart (NovoLOG SUPPLEMENTAL SCALE) 1 ACHS SLIDING SCALE SQ Last administered on 02/15/17 06:05; Start 02/13/17 at 11:00; Stop 02/15/17 at 12:42 ; Status DC Insulin Detemir (Levemir Inj) 5 units Q12HR SQ Last administered on 02/15/17 08:27; Start 02/13/17 at 10:30; Stop 02/15/17 at 12:42; Status DC Amitriptyline HCl (Elavil) 25 mg HS PO Last administered on 02/14/17 21:19; Start 02/13/17 at 21:00; Stop 02/15/17 at 12:42; Status DC Gabapentin (Neurontin) 300 mg TID PO Last administered on 02/15/17 08:25; Start 02/13/17 at 13:00; Stop 02/15/17 at 12:43; Status DC Lisinopril (Prinivil) 20 mg DAILY PO Last administered on 02/15/17 08:26; Start 02/14/17 at 09:00; Stop 02/15/17 at 12:43; Status DC Lorazepam (Ativan) 2 mg Q6H PRN PO ANXIETY Last administered on 02/14/17 17:34 ; Start 02/13/17 at 10:00; Stop 02/15/17 at 12:43; Status DC Nebivolol 10 mg 10 mg BID PO Last administered on 02/15/17 08:26; Start at 21:00; Stop 02/15/17 at 12:43; Status DC Sodium Chloride (NS 250 ml Inj) 250 ml @ 15 mls/hr ONCE ONCE IV Last administered on 02/13/17 16:33; Start 02/13/17 at 15:00; Stop 02/14/17 at 07:39 ; Status DC Furosemide (Lasix Inj) 20 mg ONCE ONCE IV PUSH Last administered on 02/13/17 16:32; Start 02/13/17 at 15:00; Stop 02/13/17 at 15:04; Status DC Insulin Aspart 5 units 5 units ONCE ONCE SQ Last administered on 02/13/17 18: 35; Start 02/13/17 at 18:00; Stop 02/13/17 at 18:07; Status DC Sodium Chloride (NS 250 ml Inj) 250 ml @ 15 mls/hr ONCE ONCE IV Last administered on 02/14/17 01:45; Start 02/14/17 at 01:45; Stop 02/14/17 at 18:24 ; Status DC Furosemide (Lasix Inj) 20 mg UNSCH X1 PRN IV AFTER UNIT OF BLOOD Last administered on 02/14/17 05:49; Start 02/14/17 at 01:45; Stop 02/14/17 at 07:00 ; Status DC Patient Own Medication PT OWN MED: ACARB... TID PO ; Start 02/15/17 at 09:00; Stop 02/15/17 at 12:43; Status DC Iron Sucrose/ Sodium Chloride (Venofer Inj/NS Inj) 105 ml @ 105 mls/hr ONCE ONCE IV Last administered on 02/14/17 17:26; Start 02/14/17 at 16:30; Stop at 17:29; Status DC Torsemide (Demadex) 20 mg BID@09,18 PO Last administered on 02/15/17 08:26; Start 02/15/17 at 09:00; Stop 02/15/17 at 12:43; Status DC Vital Signs / I&O Vital Signs Date Time Temp Pulse Resp B/P Pulse Ox O2 Delivery O2 Flow Rate FiO2 02/15/17 09:40 96 Nasal Cannula 3.00 02/15/17 08:30 Nasal Cannula 4.00 02/15/17 08:03 73 02/15/17 04:37 98.4 70 18 144/74 97 02/15/17 04:00 Nasal Cannula 4.00 02/15/17 00:00 Nasal Cannula 4.00 02/14/17 23:22 97.5 70 18 146/69 93 02/14/17 20:10 97.5 70 18 135/70 99 02/14/17 20:00 Nasal Cannula 4.00 02/14/17 16:00 98.0 70 20 138/67 97 02/14/17 13:36 95 Nasal Cannula 3.00 I/O 02/14/17 02/14/17 02/14/17 02/15/17 02/15/17 02/15/17 07:00 15:00 23:00 07:00 15:00 23:00 Intake Total 720 ml 1420 ml 720 ml 0 ml Output Total 900 ml 200 ml 400 ml 400 ml Balance -180 ml 1220 ml 320 ml -400 ml Intake Oral 720 ml 1420 ml 720 ml 0 ml Output Urine Total 900 ml 200 ml 400 ml 400 ml # Voids 2 # Bowel Movements 0 0 0 0 Physical Exam GENERAL: NAD, AAOx3 SKIN: Warm and dry. HEAD: Atraumatic. Normocephalic. EYES: Pupils equal and round. No scleral icterus. No injection or drainage. ENT: No nasal bleeding or discharge. Mucous membranes pink and moist. NECK: Trachea midline. No JVD. CARDIOVASCULAR: Regular rate and rhythm. RESPIRATORY: No accessory muscle use. Clear to auscultation. Breath sounds equal bilaterally. GASTROINTESTINAL: Abdomen soft, non-tender, nondistended. Hepatic and splenic margins not palpable. MUSCULOSKELETAL: Edema bilaterally trace NEUROLOGICAL: Awake and alert. No obvious cranial nerve deficits. Motor grossly within normal limits. Five out of 5 muscle strength in the arms and legs. Normal speech. PSYCHIATRIC: Appropriate mood and affect; insight and judgment normal. Laboratory Laboratory Tests Test 02/14/17 02/14/17 02/15/17 19:05 23:07 08:56 Hemoglobin 8.9 GM/DL 8.5 GM/DL 9.6 GM/DL White Blood Count 7.2 TH/MM3 Red Blood Count 3.94 MIL/MM3 Hematocrit 30.5 % Mean Corpuscular Volume 77.2 FL Mean Corpuscular Hemoglobin 24.2 PG Mean Corpuscular Hemoglobin 31.4 % Concent Red Cell Distribution Width 17.7 % Platelet Count 310 TH/MM3 Mean Platelet Volume 8.3 FL Neutrophils (%) (Auto) 86.1 % Lymphocytes (%) (Auto) 4.7 % Monocytes (%) (Auto) 6.3 % Eosinophils (%) (Auto) 1.6 % Basophils (%) (Auto) 1.3 % Neutrophils # (Auto) 6.2 TH/MM3 Lymphocytes # (Auto) 0.3 TH/MM3 Monocytes # (Auto) 0.5 TH/MM3 Eosinophils # (Auto) 0.1 TH/MM3 Basophils # (Auto) 0.1 TH/MM3 CBC Comment DIFF FINAL Differential Comment Sodium Level 137 MEQ/L Potassium Level 4.0 MEQ/L Chloride Level 98 MEQ/L Carbon Dioxide Level 34.7 MEQ/L Anion Gap 4 MEQ/L Blood Urea Nitrogen 30 MG/DL Creatinine 1.15 MG/DL Estimat Glomerular Filtration 61 ML/MIN Rate Random Glucose 172 MG/DL Calcium Level 9.3 MG/DL Phosphorus Level 3.5 MG/DL Magnesium Level 2.0 MG/DL Albumin 3.4 GM/DL Assessment and Plan Problem List: (1) Diastolic CHF, acute on chronic (2) A-fib (3) Congestive heart failure (4) Edema Assessment and Plan 1) CHF/Edema secondary to increased salt intake in diet Discussed watching his diet especially when eating out 2) Con't diuresis 3) Will watch weights at home 4) Plan discharge today, will follow up with Dr. Mills as planned on 5) Still off Coumadin with anemia and recent GIB, may need outpt small bowel capsule Problem Qualifiers (1) Congestive heart failure: Qualified Code: I50.9 - Acute congestive heart failure, unspecified congestive heart failure type Tej Pereira DO Feb 15, 2017 13:10
== END 2017-02-15 12:41 | disposition home health service (06) | DRG 377 ==
LOC: NEPE 04:11 → NEDA 06:32 → N04B 08:07
PROVIDERS: ADMIT Internal Medicine; ATTEND Internal Medicine
PROC: 30233N1 Transfusion of Nonautologous Red Blood Cells into Peripheral Vein, Percutaneous Approach (ICD-10-PCS; principal; 2017-02-13)
DX: K92.2 Gastrointestinal hemorrhage, unspecified (principal); G93.49 Other encephalopathy; I50.33 Acute on chronic diastolic (congestive) heart failure; I11.0 Hypertensive heart disease with heart failure; E11.65 Type 2 diabetes mellitus with hyperglycemia; J44.9 Chronic obstructive pulmonary disease, unspecified; Z99.81 Dependence on supplemental oxygen; R09.02 Hypoxemia; D50.9 Iron deficiency anemia, unspecified; I48.91 Unspecified atrial fibrillation; F41.9 Anxiety disorder, unspecified; F32.9 Major depressive disorder, single episode, unspecified; M19.90 Unspecified osteoarthritis, unspecified site; N40.0 Benign prostatic hyperplasia without lower urinary tract symptoms; Z96.659 Presence of unspecified artificial knee joint; E78.00 Pure hypercholesterolemia, unspecified; H54.7 Unspecified visual loss; Z79.01 Long term (current) use of anticoagulants; Z95.810 Presence of automatic (implantable) cardiac defibrillator; Z85.828 Personal history of other malignant neoplasm of skin; Z86.010 Personal history of colon polyps; Z87.891 Personal history of nicotine dependence; K20.9 Esophagitis, unspecified; H91.90 Unspecified hearing loss, unspecified ear; Z91.11 Patient's noncompliance with dietary regimen
CPT/HCPCS: 36430; 36600; 71010; 80048; 80053; 80069; 82550; 82728; 82805; 82948; 83036; 83540; 83550; 83735; 83880; 84484; 85014; 85018; 85025; 85027; 85610; 85730; 86850; 86900; 86901; 86920; 93005; 96372; 96374; C9113; J1756; J1815; J1940; J2930; J7050; P9016

== ENCOUNTER 2017-03-02 12:11 | Emergency (ER) | payer MEDICARE ==
[~2017-03-02 12:11] MED LIST changes: -AMOX500C PO; +FERR200T PO; -FISHCAP4 PO; -PRED10 PO; +SENN1TAB PO; +VITA2000 PO; -VITA500030 CHEW
[2017-03-02 12:14] VITALS: BP 112/57; PULSE 70; RESP 20; TEMP 97.7; O2SAT 91
[2017-03-02 14:52] VITALS: BP 126/60; PULSE 70; RESP 16; O2SAT 98
[2017-03-02] MEDS ORDERED: SODIUM CHLORIDE 0.9% FLUSH 10 ML FLUSH IVF PRN (15:15)
[2017-03-02 15:19] LABS: AUTOMATED NEUTROPHIL # 3.6 TH/MM3 (1.8-7.7); BASOPHIL # 0.1 TH/MM3 (0-0.2); BASOPHIL % 1.2 % (0.0-2.0); EOSINOPHIL # 0.1 TH/MM3 (0-0.4); EOSINOPHIL % 2.6 % (0.0-4.0); HEMATOCRIT 31.8 % (39.0-51.0); HEMO FLAGS DIFF FINAL; LYMPH % 7.8 % (9.0-44.0); LYMPHOCYTE # 0.4 TH/MM3 (1.0-4.8); MEAN CELL VOLUME 80.3 FL (80.0-100.0); MEAN CORPUSCULAR HEMOGLOBIN 24.5 PG (27.0-34.0); MEAN CORPUSCULAR HGB CONC 30.5 % (32.0-36.0); MONO % 8.3 % (0.0-8.0); NEUT % 80.1 % (16.0-70.0); PLATELET COUNT 368 TH/MM3 (150-450); RED BLOOD COUNT 3.96 MIL/MM3 (4.50-5.90); RED CELL DISTRIBUTION WIDTH 20.2 % (11.6-17.2); WHITE BLOOD COUNT 4.5 TH/MM3 (4.0-11.0)
[2017-03-02] MEDS ORDERED: POTA-163 PO (15:21)
[2017-03-02] MEDS ORDERED: GABA300C5 PO (15:21)
[2017-03-02] MEDS ORDERED: WARF-23 PO (15:21)
[2017-03-02] MEDS ORDERED: TRAZ50TA12 PO (15:21)
[2017-03-02 15:28] LABS: BICARBONATE 35.9 MEQ/L (21.0-32.0); POTASSIUM 4.4 MEQ/L (3.5-5.1)
[2017-03-02 16:02] LABS: BLOOD, URINE NEG (NEG); COMMENT (UR) CULT NOT INDICATED; CULTURE IF INDICATED CULT NOT INDICATED; GLUCOSE,URINE NEG (NEG); HYALINE CAST, URINE 24 /lpf (RARE); KETONE, URINE NEG (NEG); MUCUS URINE FEW /lpf (OCC); NITRITE,URINE NEG (NEG); PH, URINE 5.5 (5.0-8.5); SQUAMOUS EPITHELIAL CELL URINE 1 /hpf (0-5); URINE COLOR YELLOW (YELLW/STRAW)
[2017-03-02 16:07] LABS: APTT (PATIENT) 28.5 SEC (24.3-30.1)
--- NOTE | 2017-03-02 16:35 | PD ---
Data Data Last Documented VS Vital Signs Date Time Temp Pulse Resp B/P Pulse Ox O2 Delivery O2 Flow Rate FiO2 03/02/17 16:42 69 16 122/56 97 Room Air 03/02/17 14:52 4 03/02/17 12:14 97.7 Orders Complete Blood Count With Diff (03/02/17 12:54) Basic Metabolic Panel (Bmp) (03/02/17 12:54) Type And Screen (03/02/17 12:54) Act Partial Throm Time (Ptt) (03/02/17 15:02) Ecg Monitoring (03/02/17 15:02) Iv Access Insert/Monitor (03/02/17 15:02) Oximetry (03/02/17 15:02) Sodium Chloride 0.9% Flush (Ns Flush) (03/02/17 15:15) Urinalysis - C+S If Indicated (03/02/17 15:04) Prothrombin Time / Inr (Pt) (03/02/17 15:10) Hepatic Functional Panel (03/02/17 14:10) Labs Laboratory Tests Test 03/02/17 03/02/17 14:10 15:10 White Blood Count 4.5 TH/MM3 Red Blood Count 3.96 MIL/MM3 Hemoglobin 9.7 GM/DL Hematocrit 31.8 % Mean Corpuscular Volume 80.3 FL Mean Corpuscular Hemoglobin 24.5 PG Mean Corpuscular Hemoglobin 30.5 % Concent Red Cell Distribution Width 20.2 % Platelet Count 368 TH/MM3 Mean Platelet Volume 8.2 FL Neutrophils (%) (Auto) 80.1 % Lymphocytes (%) (Auto) 7.8 % Monocytes (%) (Auto) 8.3 % Eosinophils (%) (Auto) 2.6 % Basophils (%) (Auto) 1.2 % Neutrophils # (Auto) 3.6 TH/MM3 Lymphocytes # (Auto) 0.4 TH/MM3 Monocytes # (Auto) 0.4 TH/MM3 Eosinophils # (Auto) 0.1 TH/MM3 Basophils # (Auto) 0.1 TH/MM3 CBC Comment DIFF FINAL Differential Comment Sodium Level 138 MEQ/L Potassium Level 4.4 MEQ/L Chloride Level 97 MEQ/L Carbon Dioxide Level 35.9 MEQ/L Anion Gap 5 MEQ/L Blood Urea Nitrogen 23 MG/DL Creatinine 1.33 MG/DL Estimat Glomerular Filtration 52 ML/MIN Rate Random Glucose 269 MG/DL Calcium Level 9.2 MG/DL Total Bilirubin 0.6 MG/DL Direct Bilirubin 0.2 MG/DL Indirect Bilirubin 0.4 MG/DL Aspartate Amino Transf 14 U/L (AST/SGOT) Alanine Aminotransferase 17 U/L (ALT/SGPT) Alkaline Phosphatase 43 U/L Total Protein 7.1 GM/DL Albumin 3.4 GM/DL Blood Type AB NEGATIVE Antibody Screen NEGATIVE Prothrombin Time 12.7 SEC Prothromb Time International 1.1 RATIO Ratio Activated Partial 28.5 SEC Thromboplast Time Urine Color YELLOW Urine Turbidity CLEAR Urine pH 5.5 Urine Specific [place] 1.013 Urine Protein TRACE mg/dL Urine Glucose (UA) NEG mg/dL Urine Ketones NEG mg/dL Urine Occult Blood NEG Urine Nitrite NEG Urine Bilirubin NEG Urine Urobilinogen LESS THAN 2.0 MG/DL Urine Leukocyte Esterase NEG Urine RBC LESS THAN 1 /hpf Urine WBC LESS THAN 1 /hpf Urine Squamous Epithelial 1 /hpf Cells Urine Hyaline Casts 24 /lpf Urine Mucus FEW /lpf Microscopic Urinalysis Comment CULT NOT INDICATED MDM Supervised Visit with PATRICIA: Yes Narrative Course I, Dr. Hooper, have reviewed the advance practice practitioner's documentation and am in agreement, met with the patient face to face, made the diagnosis, and the medical decision making was done by me. *My assessment and Findings: Patient seen and examined by me, on routine lab work was told to come to the emergency department unsure what lab was abnormal but was told by his regular physician that he would likely need blood. Patient was some mild fatigue over the past few weeks, no shortness of breath and no feeling like he is going to pass out. Hemoglobin is 9.7, INR is minimally elevated but the patient just began taking Coumadin again per his doctor's instructions. I see no indication for blood transfusion currently, recommend that he call his primary care physician for a follow-up appointment he is stable for discharge at this time. Disposition: 01 DISCHARGE HOME Condition: Stable Isidro Hooper MD Mar 02, 2017 16:35
--- NOTE | 2017-03-02 16:38 | PD ---
HPI Chief Complaint: Abnormal Results Time Seen by Provider: 14:50 Travel History International Travel<30 days: No Contact w/Intl Traveler<30days: No Traveled to known affect area: No History of Present Illness HPI Patient is an 81-year-old male presenting to emergency for evaluation of abnormal labs. Patient states that he was told that his hemoglobin was low and needed to have it evaluated in the emergency department. He does report feeling low energy and more fatigued over the last few weeks. He denies any fever, chills, shortness of breath, chest pain. Patient is pleasant and overall well appearing. 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) Gastrointestinal Disorders: No GERD: No Glaucoma: No Genitourinary: Yes Headaches: Yes (R/T SINUSITIS) Hepatitis: No Hiatal Hernia: No Hypertension: Yes Immune Disorder: No Kidney Stones: No Musculoskeletal: No Neurologic: Yes (neuropathy) Reproductive: No Immunizations Current: No Migraines: No Radiation Therapy: No Renal Failure: No Seizures: No Sickle Cell Disease: No Sleep Apnea: Yes (CPAP AT NIGHT AT TIMES) Thyroid Disease: No Ulcer: No Influenza Vaccination: Yes Past Surgical History Abdominal Surgery: Yes (HERNIA REPAIR) AICD: Yes Appendectomy: Yes Arteriovenous Shunt: No Body Medical Devices: KNEE REPLACEMENT LEFT AND RIGHT, AICD Cholecystectomy: Yes Ear Surgery: No Endocrine Surgery: No Eye Surgery: Yes Genitourinary Surgery: No Gynecologic Surgery: No Insulin Pump: No Neurologic Surgery: No Oral Surgery: No Pacemaker: Yes (REPLACED IN NOVEMBER 2016) Thoracic Surgery: No Social History Alcohol Use: No Tobacco Use: No Substance Use: No Allergies-Medications (Allergen,Severity, Reaction): Coded Allergies: MRI PRECAUTION (Verified Allergy, Severe, 02/13/17) Uncoded Allergies: STEROIDS (Adverse Reaction, Mild, 01/10/17) ELEVATED BLOOD SUGAR Reported Meds & Prescriptions Reported Meds & Active Scripts Active Feosol (Ferrous Sulfate) 200 Mg Tab 200 Mg PO BIDPC Vitamin D3 (Cholecalciferol) 2,000 Unit Cap 2,000 Units PO DAILY Oxygen tank (Oxygen) 1 Ea Tank 2 Liter JAKE.CANULA CONTINUOUS Oxygen Concentrator Portable Gaseous 2 L/min via Nasal Cannula Continuous For 99 months Amitriptyline (Amitriptyline HCl) 25 Mg Tab 25 Mg PO HS Digoxin 0.125 Mg Tab 0.125 Mg PO DAILY Reported Warfarin 5 Mg Tab 5 Mg PO DAILY Trazodone (Trazodone HCl) 50 Mg Tab 50 Mg PO HS Potassium Chloride ER (Potassium Chloride) 20 Meq Tab 20 Meq PO DAILY Gabapentin 300 Mg Cap 300 Mg PO TID Cormax Scalp Topical (Clobetasol Propionate) 0.05% Soln 1 Applic TOPICAL BID Hydrocodone-Acetaminophen 5-325 mg Tab 2 Tab PO Q6H PRN Vitamin B12 (Cyanocobalamin) 100 Mcg Tab 100 Mcg PO DAILY Lorazepam 2 Mg Tab 2 Mg PO Q6H PRN Flonase Nasal [place] (Fluticasone Nasal [place]) 50 Mcg/Act [place] 100 Mcg EACH NARE BID Acarbose 100 Mg Tab 100 Mg PO TID Take with first bite of meal. Omeprazole 40 Mg Cap 40 Mg PO BID Atorvastatin (Atorvastatin Calcium) 40 Mg Tab 40 Mg PO DAILY Torsemide 20 Mg Tab 40 Mg PO BID Lisinopril 20 Mg Tab 20 Mg PO DAILY Bystolic (Nebivolol) 10 Mg Tab 10 Mg PO BID Finasteride 5 Mg Tab 5 Mg PO HS Do not crush. Review of Systems Except as stated in HPI: all other systems reviewed are Neg General / Constitutional: Positive: Other (fatigue) Physical Exam Narrative GENERAL: Well-developed, well-nourished, elderly gentleman. Resting in no acute distress. SKIN: Warm and dry. HEAD: Atraumatic. Normocephalic. EYES: Pupils equal and round. No scleral icterus. No injection or drainage. Pale conjunctiva ENT: No nasal bleeding or discharge. Mucous membranes pink and moist. NECK: Trachea midline. No JVD. CARDIOVASCULAR: Regular rate and rhythm. 2/6 systolic murmur RESPIRATORY: No accessory muscle use. Clear to auscultation. Breath sounds diminished in bases bilaterally GASTROINTESTINAL: Abdomen soft, non-tender, nondistended. Hepatic and splenic margins not palpable. MUSCULOSKELETAL: Extremities without clubbing, cyanosis, or edema. No obvious deformities. NEUROLOGICAL: Awake and alert. No obvious cranial nerve deficits. Motor grossly within normal limits. Five out of 5 muscle strength in the arms and legs. Normal speech. PSYCHIATRIC: Appropriate mood and affect; insight and judgment normal. Data Data Last Documented VS Vital Signs Date Time Temp Pulse Resp B/P Pulse Ox O2 Delivery O2 Flow Rate FiO2 03/02/17 16:42 69 16 122/56 97 Room Air 03/02/17 14:52 4 03/02/17 12:14 97.7 Orders Complete Blood Count With Diff (03/02/17 12:54) Basic Metabolic Panel (Bmp) (03/02/17 12:54) Type And Screen (03/02/17 12:54) Act Partial Throm Time (Ptt) (03/02/17 15:02) Ecg Monitoring (03/02/17 15:02) Iv Access Insert/Monitor (03/02/17 15:02) Oximetry (03/02/17 15:02) Sodium Chloride 0.9% Flush (Ns Flush) (03/02/17 15:15) Urinalysis - C+S If Indicated (03/02/17 15:04) Prothrombin Time / Inr (Pt) (03/02/17 15:10) Hepatic Functional Panel (03/02/17 14:10) Labs Laboratory Tests Test 03/02/17 03/02/17 14:10 15:10 White Blood Count 4.5 TH/MM3 Red Blood Count 3.96 MIL/MM3 Hemoglobin 9.7 GM/DL Hematocrit 31.8 % Mean Corpuscular Volume 80.3 FL Mean Corpuscular Hemoglobin 24.5 PG Mean Corpuscular Hemoglobin 30.5 % Concent Red Cell Distribution Width 20.2 % Platelet Count 368 TH/MM3 Mean Platelet Volume 8.2 FL Neutrophils (%) (Auto) 80.1 % Lymphocytes (%) (Auto) 7.8 % Monocytes (%) (Auto) 8.3 % Eosinophils (%) (Auto) 2.6 % Basophils (%) (Auto) 1.2 % Neutrophils # (Auto) 3.6 TH/MM3 Lymphocytes # (Auto) 0.4 TH/MM3 Monocytes # (Auto) 0.4 TH/MM3 Eosinophils # (Auto) 0.1 TH/MM3 Basophils # (Auto) 0.1 TH/MM3 CBC Comment DIFF FINAL Differential Comment Sodium Level 138 MEQ/L Potassium Level 4.4 MEQ/L Chloride Level 97 MEQ/L Carbon Dioxide Level 35.9 MEQ/L Anion Gap 5 MEQ/L Blood Urea Nitrogen 23 MG/DL Creatinine 1.33 MG/DL Estimat Glomerular Filtration 52 ML/MIN Rate Random Glucose 269 MG/DL Calcium Level 9.2 MG/DL Blood Type AB NEGATIVE Antibody Screen NEGATIVE Prothrombin Time 12.7 SEC Prothromb Time International 1.1 RATIO Ratio Activated Partial 28.5 SEC Thromboplast Time Urine Color YELLOW Urine Turbidity CLEAR Urine pH 5.5 Urine Specific [place] 1.013 Urine Protein TRACE mg/dL Urine Glucose (UA) NEG mg/dL Urine Ketones NEG mg/dL Urine Occult Blood NEG Urine Nitrite NEG Urine Bilirubin NEG Urine Urobilinogen LESS THAN 2.0 MG/DL Urine Leukocyte Esterase NEG Urine RBC LESS THAN 1 /hpf Urine WBC LESS THAN 1 /hpf Urine Squamous Epithelial 1 /hpf Cells Urine Hyaline Casts 24 /lpf Urine Mucus FEW /lpf Microscopic Urinalysis Comment CULT NOT INDICATED MDM Medical Decision Making Medical Screen Exam Complete: Yes Emergency Medical Condition: Yes Interpretation(s) Laboratory Tests Test 03/02/17 03/02/17 14:10 15:10 White Blood Count 4.5 TH/MM3 Red Blood Count 3.96 MIL/MM3 Hemoglobin 9.7 GM/DL Hematocrit 31.8 % Mean Corpuscular Volume 80.3 FL Mean Corpuscular Hemoglobin 24.5 PG Mean Corpuscular Hemoglobin 30.5 % Concent Red Cell Distribution Width 20.2 % Platelet Count 368 TH/MM3 Mean Platelet Volume 8.2 FL Neutrophils (%) (Auto) 80.1 % Lymphocytes (%) (Auto) 7.8 % Monocytes (%) (Auto) 8.3 % Eosinophils (%) (Auto) 2.6 % Basophils (%) (Auto) 1.2 % Neutrophils # (Auto) 3.6 TH/MM3 Lymphocytes # (Auto) 0.4 TH/MM3 Monocytes # (Auto) 0.4 TH/MM3 Eosinophils # (Auto) 0.1 TH/MM3 Basophils # (Auto) 0.1 TH/MM3 CBC Comment DIFF FINAL Differential Comment Sodium Level 138 MEQ/L Potassium Level 4.4 MEQ/L Chloride Level 97 MEQ/L Carbon Dioxide Level 35.9 MEQ/L Anion Gap 5 MEQ/L Blood Urea Nitrogen 23 MG/DL Creatinine 1.33 MG/DL Estimat Glomerular Filtration 52 ML/MIN Rate Random Glucose 269 MG/DL Calcium Level 9.2 MG/DL Blood Type AB NEGATIVE Antibody Screen NEGATIVE Activated Partial 28.5 SEC Thromboplast Time Urine Color YELLOW Urine Turbidity CLEAR Urine pH 5.5 Urine Specific [place] 1.013 Urine Protein TRACE mg/dL Urine Glucose (UA) NEG mg/dL Urine Ketones NEG mg/dL Urine Occult Blood NEG Urine Nitrite NEG Urine Bilirubin NEG Urine Urobilinogen LESS THAN 2.0 MG/DL Urine Leukocyte Esterase NEG Urine RBC LESS THAN 1 /hpf Urine WBC LESS THAN 1 /hpf Urine Squamous Epithelial 1 /hpf Cells Urine Hyaline Casts 24 /lpf Urine Mucus FEW /lpf Microscopic Urinalysis Comment CULT NOT INDICATED Vital Signs Date Time Temp Pulse Resp B/P Pulse Ox O2 Delivery O2 Flow Rate FiO2 03/02/17 14:52 70 16 126/60 98 Nasal Cannula 4 03/02/17 12:14 97.7 70 20 112/57 91 Nasal Cannula Differential Diagnosis GI bleed versus anemia versus other Narrative Course Patient is an 81-year-old male with a history of anemia presenting due to abnormal labs. On 25 February labs were drawn and resulted on February 28, his hemoglobin was reported at 8.6. Patient was sent to emergency department for evaluation of this. He does report feeling more fatigued lately, denies any dark or tarry stools. He states his stools are dark secondary to taking iron therapy. Patient had an EGD and colonoscopy on February 24, 2017. The EGD showed esophagitis, there was a polyp noted on the colonoscopy however the prep for the colonoscopy was suboptimal. According to the report there did not appear to be any active bleeding or GI source of blood loss. CBC shows a hemoglobin of 9.7 and 31.8, stable and slightly improved when compared to prior Chemistry was having elevated BUN/creatinine this is also stable when compared to prior Urinalysis is unremarkable INR was assessed at 1.1, patient just resumed Coumadin 2 days ago. He is encouraged to continue following up with his physician to have his INR monitored regularly. Patient appears well, his vital signs are stable. Patient will be discharged home with follow-up with his primary doctor. Return to emergency department for any new or worsening symptoms. Patient and verbalized understanding of these instructions. Patient stable for discharge. 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
[2017-03-02 16:42] VITALS: BP 122/56; PULSE 69; RESP 16; O2SAT 97
[2017-03-02 16:50] LABS: INTERNATIONAL NORMALIZED RATIO 1.1 RATIO; PROTHROMBIN TIME - PATIENT 12.7 SEC (9.8-11.6)
[2017-03-02 17:06] LABS: TOTAL BILIRUBIN ADULT 0.6 MG/DL (0.2-1.0)
[2017-03-02 17:23] LABS: INDIRECT BILIRUBIN 0.4 MG/DL (0.0-0.8)
== END 2017-03-02 17:29 | disposition home or self-care (01) ==
LOC: NEPE 12:11
DX: D64.9 Anemia, unspecified (principal); R53.83 Other fatigue; I48.91 Unspecified atrial fibrillation; F41.9 Anxiety disorder, unspecified; F32.9 Major depressive disorder, single episode, unspecified; E78.00 Pure hypercholesterolemia, unspecified; I50.9 Heart failure, unspecified; J44.9 Chronic obstructive pulmonary disease, unspecified; E11.40 Type 2 diabetes mellitus with diabetic neuropathy, unspecified
CPT/HCPCS: 80048; 80076; 81001; 85025; 85610; 85730; 86850; 86900; 86901; 99283

== ENCOUNTER 2017-04-09 15:46 | Emergency (ER) | payer MEDICARE ==
[~2017-04-09] VITALS: Ht 188 cm; Wt 100.0 kg
[~2017-04-09 15:46] MED LIST changes: +POTA-163 PO; -SENN1TAB PO; +TRAZ50TA12 PO; +WARF-23 PO
[2017-04-09 15:49] VITALS: BP 122/58; PULSE 74; RESP 15; TEMP 97.7; O2SAT 81
[2017-04-09 17:19] LABS: AUTOMATED NEUTROPHIL # 4.8 TH/MM3 (1.8-7.7); BASOPHIL # 0.1 TH/MM3 (0-0.2); BASOPHIL % 1.2 % (0.0-2.0); EOSINOPHIL # 0.1 TH/MM3 (0-0.4); EOSINOPHIL % 1.7 % (0.0-4.0); HEMATOCRIT 33.3 % (39.0-51.0); HEMO FLAGS DIFF FINAL; LYMPH % 6.9 % (9.0-44.0); LYMPHOCYTE # 0.4 TH/MM3 (1.0-4.8); MEAN CELL VOLUME 83.9 FL (80.0-100.0); MEAN CORPUSCULAR HEMOGLOBIN 25.9 PG (27.0-34.0); MEAN CORPUSCULAR HGB CONC 30.9 % (32.0-36.0); MONO % 7.4 % (0.0-8.0); NEUT % 82.8 % (16.0-70.0); PLATELET COUNT 226 TH/MM3 (150-450); RED BLOOD COUNT 3.98 MIL/MM3 (4.50-5.90); WHITE BLOOD COUNT 5.8 TH/MM3 (4.0-11.0)
[2017-04-09 17:24] LABS: APTT (PATIENT) 34.4 SEC (24.3-30.1); PROTHROMBIN TIME - PATIENT 22.6 SEC (9.8-11.6)
[2017-04-09 17:36] LABS: ANION GAP 8 MEQ/L (5-15); AST (GOT) 15 U/L (15-37); BICARBONATE 33.9 MEQ/L (21.0-32.0); BLOOD UREA NITROGEN 28 MG/DL (7-18); CHLORIDE 97 MEQ/L (98-107); GLOMERULAR FILTRATION RATE 58 ML/MIN (>89); POTASSIUM 4.5 MEQ/L (3.5-5.1); SODIUM (NA) 139 MEQ/L (136-145)
[2017-04-09 17:39] LABS: ALKALINE PHOSPHATASE 49 U/L (45-117); ALT (GPT) 18 U/L (12-78); TOTAL BILIRUBIN ADULT 0.7 MG/DL (0.2-1.0)
[2017-04-09] MEDS ORDERED: LANTUS2P SQ (19:22)
[2017-04-09 19:25] VITALS: O2SAT 98
--- NOTE | 2017-04-09 20:08 | PD ---
HPI . "Black stool" Chief Complaint: GI Complaint Time Seen by Provider: 18:57 Travel History International Travel<30 days: No Contact w/Intl Traveler<30days: No Traveled to known affect area: No History of Present Illness HPI This is an 81 year old male with past medical history of A. fib, CHF, COPD, previous GI bleeds, GERD, anemia. He presented to the [facility] this evening due to several episodes of black stools that filled the toilet today. He had no other associated symptoms and denies increased shortness of breath, weakness, dizziness, chest pain, abdominal pain, nausea, vomiting, or change in urinary symptoms. He is not currently taking any iron supplements. He has not had these symptoms for several weeks, but has had episodes of melena before. The source has not yet been identified. He has had a recent endoscopy and colonoscopy and the next step is pill camera by his inspector wire rope. His next appointment with them is April 29. He takes Warfarin for anticoagulation. He denies any alcohol use and was a former smoker. 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) Endocrine: Yes Gastrointestinal Disorders: No GERD: No Glaucoma: No Genitourinary: Yes Headaches: Yes (R/T SINUSITIS) Hepatitis: No Hiatal Hernia: No Hypertension: Yes Immune Disorder: No Implanted Vascular Access Dvce: Yes Kidney Stones: No Musculoskeletal: No Neurologic: Yes Psychiatric: Yes Reproductive: No Respiratory: Yes Integumentary: Yes (RIGHT SECOND TOE INFECTION) Immunizations Current: No Migraines: No Radiation Therapy: No Renal Failure: No Seizures: No Sickle Cell Disease: No Sleep Apnea: Yes (CPAP AT NIGHT AT TIMES) Thyroid Disease: No Ulcer: No Tetanus Vaccination: < 5 Years Influenza Vaccination: Yes Past Surgical History Abdominal Surgery: Yes (HERNIA REPAIR) AICD: Yes Appendectomy: Yes Arteriovenous Shunt: No Body Medical Devices: KNEE REPLACEMENT LEFT AND RIGHT, AICD Cardiac Surgery: Yes (PACEMAKER) Cholecystectomy: Yes Ear Surgery: No Endocrine Surgery: No Eye Surgery: Yes (L & R EYE CATARACTS) Genitourinary Surgery: No Gynecologic Surgery: No Insulin Pump: No Joint Replacement: Yes (BILATERAL TKR) Neurologic Surgery: No Oral Surgery: No Pacemaker: Yes (REPLACED IN NOVEMBER 2016) Thoracic Surgery: No Other Surgery: Yes (pacemaker placement, herniated appendix) Social History Alcohol Use: No Tobacco Use: No Substance Use: No Allergies-Medications (Allergen,Severity, Reaction): Coded Allergies: MRI PRECAUTION (Verified Allergy, Severe, 02/13/17) Uncoded Allergies: STEROIDS (Adverse Reaction, Mild, 01/10/17) ELEVATED BLOOD SUGAR Reported Meds & Prescriptions Reported Meds & Active Scripts Active Feosol (Ferrous Sulfate) 200 Mg Tab 200 Mg PO BIDPC Vitamin D3 (Cholecalciferol) 2,000 Unit Cap 2,000 Units PO DAILY Oxygen tank (Oxygen) 1 Ea Tank 2 Liter JAKE.CANULA CONTINUOUS Oxygen Concentrator Portable Gaseous 2 L/min via Nasal Cannula Continuous For 99 months Amitriptyline (Amitriptyline HCl) 25 Mg Tab 25 Mg PO HS Digoxin 0.125 Mg Tab 0.125 Mg PO DAILY Reported Lantus Inj (Insulin Glargine) 1,000 Unit/10 Ml Vial 10 Units SQ HS Warfarin 5 Mg Tab 5 Mg PO DAILYHS Trazodone (Trazodone HCl) 50 Mg Tab 50 Mg PO HS Potassium Chloride ER (Potassium Chloride) 20 Meq Tab 20 Meq PO DAILY Gabapentin 300 Mg Cap 300 Mg PO TID Cormax Scalp Topical (Clobetasol Propionate) 0.05% Soln 1 Applic TOPICAL BID Hydrocodone-Acetaminophen 5-325 mg Tab 2 Tab PO Q6H PRN Vitamin B12 (Cyanocobalamin) 100 Mcg Tab 100 Mcg PO DAILY Lorazepam 2 Mg Tab 2 Mg PO Q6H PRN Flonase Nasal [place] (Fluticasone Nasal [place]) 50 Mcg/Act [place] 100 Mcg EACH NARE BID Acarbose 100 Mg Tab 100 Mg PO TID Take with first bite of meal. Omeprazole 40 Mg Cap 40 Mg PO BID Atorvastatin (Atorvastatin Calcium) 40 Mg Tab 40 Mg PO DAILY Torsemide 20 Mg Tab 40 Mg PO BID Lisinopril 20 Mg Tab 20 Mg PO DAILY Bystolic (Nebivolol) 10 Mg Tab 10 Mg PO BID Finasteride 5 Mg Tab 5 Mg PO HS Do not crush. Review of Systems Except as stated in HPI: all other systems reviewed are Neg General / Constitutional: No: Fever, Chills, Weight Gain, Weight Loss HENT: No: Headaches, Lightheadedness Cardiovascular: No: Chest Pain or Discomfort, Palpitations, Tachycardia, Dyspnea on exertion Respiratory: No: Cough, Shortness of Breath, Wheezing Gastrointestinal: Positive: Diarrhea (melenotic stools), No: Nausea, Vomiting , Abdominal Pain, Hematochezia (yes to melena) Genitourinary: No: Urgency, Frequency, Dysuria Skin: No Rash Neurologic: No: Weakness, Dizziness, Syncope Physical Exam Narrative GENERAL: This is a pleasant older gentleman comfortably laying in the exam bed. His is at bedside. He is in no acute distress and is alert and oriented x3. SKIN: Warm and dry. Bruising on distal forearms. Good color and turgor. HEAD: Atraumatic. Normocephalic. EYES: Pupils equal and round. ENT: No nasal bleeding or discharge. Mucous membranes pink and moist. NECK: Trachea midline. CARDIOVASCULAR: Regular rate and rhythm. No murmurs or extra beats. RESPIRATORY: No accessory muscle use. Lungs clear to auscultation bilaterally. GASTROINTESTINAL: Abdomen soft, no tenderness on exam. Midline appendectomy scar and RUQ lauren scar. MUSCULOSKELETAL: No obvious deformities. No edema. NEUROLOGICAL: Awake and alert. No obvious cranial nerve deficits. Motor grossly within normal limits. Normal speech. PSYCHIATRIC: Appropriate mood and affect; insight and judgment normal. Data Data Last Documented VS Vital Signs Date Time Temp Pulse Resp B/P Pulse Ox O2 Delivery O2 Flow Rate FiO2 04/09/17 19:25 98 Nasal Cannula 3 04/09/17 15:49 97.7 74 15 122/58 Orders Complete Blood Count With Diff (04/09/17 16:16) Comprehensive Metabolic Panel (04/09/17 16:16) Prothrombin Time / Inr (Pt) (04/09/17 16:16) Act Partial Throm Time (Ptt) (04/09/17 16:16) Ecg Monitoring (04/09/17 16:16) Orthostatic Vital Signs (04/09/17 16:16) Oximetry (04/09/17 16:16) Oxygen Administration (04/09/17 16:16) Iv Access Insert/Monitor (04/09/17 16:16) Type And Screen (04/09/17 16:16) Labs Laboratory Tests Test 04/09/17 16:22 White Blood Count 5.8 TH/MM3 Red Blood Count 3.98 MIL/MM3 Hemoglobin 10.3 GM/DL Hematocrit 33.3 % Mean Corpuscular Volume 83.9 FL Mean Corpuscular Hemoglobin 25.9 PG Mean Corpuscular Hemoglobin 30.9 % Concent Red Cell Distribution Width 24.0 % Platelet Count 226 TH/MM3 Mean Platelet Volume 9.1 FL Neutrophils (%) (Auto) 82.8 % Lymphocytes (%) (Auto) 6.9 % Monocytes (%) (Auto) 7.4 % Eosinophils (%) (Auto) 1.7 % Basophils (%) (Auto) 1.2 % Neutrophils # (Auto) 4.8 TH/MM3 Lymphocytes # (Auto) 0.4 TH/MM3 Monocytes # (Auto) 0.4 TH/MM3 Eosinophils # (Auto) 0.1 TH/MM3 Basophils # (Auto) 0.1 TH/MM3 CBC Comment DIFF FINAL Differential Comment Prothrombin Time 22.6 SEC Prothromb Time International 2.0 RATIO Ratio Activated Partial 34.4 SEC Thromboplast Time Sodium Level 139 MEQ/L Potassium Level 4.5 MEQ/L Chloride Level 97 MEQ/L Carbon Dioxide Level 33.9 MEQ/L Anion Gap 8 MEQ/L Blood Urea Nitrogen 28 MG/DL Creatinine 1.20 MG/DL Estimat Glomerular Filtration 58 ML/MIN Rate Random Glucose 204 MG/DL Calcium Level 9.2 MG/DL Total Bilirubin 0.7 MG/DL Aspartate Amino Transf 15 U/L (AST/SGOT) Alanine Aminotransferase 18 U/L (ALT/SGPT) Alkaline Phosphatase 49 U/L Total Protein 6.9 GM/DL Albumin 3.5 GM/DL [facility] Medical Decision Making Medical Screen Exam Complete: Yes Emergency Medical Condition: Yes Medical Record Reviewed: Yes (Last visit on 03/06 for anemia.) Differential Diagnosis Upper Gi bleed, lower gi bleed Narrative Course This is an 81-year-old gentleman who presented to the ED complaining of several episodes of black stools today. He has no other symptoms and is hemodynamically stable. He is currently being worked up by his inspector wire rope for GI bleeding and the source has not yet been identified. CBC Diagram 04/09/17 16:22 His hemoglobin has actually improved slightly from his last visit. He does not need a blood transfusion. Diagnosis Primary Impression: GI bleed Qualified Code: K92.2 - Gastrointestinal hemorrhage, unspecified gastrointestinal hemorrhage type Patient Instructions: General Instructions Departure Forms: Tests/Procedures Additional Instructions: Continue to follow up with your inspector wire rope. Return here if you feel weak and dizzy or develop chest pain or shortness of breath. Disposition: 01 DISCHARGE HOME Condition: Stable Carissa Flores MD Apr 09, 2017 20:08 Carissa Flores MD Apr 09, 2017 20:08
== END 2017-04-09 20:15 | disposition home or self-care (01) ==
LOC: NEPE 15:46
DX: K92.2 Gastrointestinal hemorrhage, unspecified (principal); E11.9 Type 2 diabetes mellitus without complications; E78.00 Pure hypercholesterolemia, unspecified; H91.93 Unspecified hearing loss, bilateral; Z79.01 Long term (current) use of anticoagulants; Z79.4 Long term (current) use of insulin; Z87.39 Personal history of other diseases of the musculoskeletal system and connective tissue; Z86.59 Personal history of other mental and behavioral disorders; Z86.79 Personal history of other diseases of the circulatory system; Z87.09 Personal history of other diseases of the respiratory system; Z87.19 Personal history of other diseases of the digestive system; Z86.2 Personal history of diseases of the blood and blood-forming organs and certain disorders involving the immune mechanism; Z87.448 Personal history of other diseases of urinary system
CPT/HCPCS: 80053; 85025; 85610; 85730; 99283

== ENCOUNTER 2017-05-19 22:37 | Inpatient (IN) | payer MEDICARE ==
[~2017-05-19] VITALS: Ht 157.5 cm; Wt 107.0 kg
[2017-05-19 10:45] VITALS: O2SAT 100
[~2017-05-19 22:37] MED LIST changes: +LANTUS2P SQ
[2017-05-19 22:44] VITALS: BP 127/61; PULSE 71; RESP 18; O2SAT 69
--- NOTE | 2017-05-19 22:54 | PD ---
HPI Chief Complaint: Respiratory Distress Time Seen by Provider: 22:41 Travel History International Travel<30 days: No Contact w/Intl Traveler<30days: No Traveled to known affect area: No History of Present Illness HPI C/O SOB, WORSE WITH ACTIVITY, WORSE THAN USUAL, HE NORMALLY IS ON 2L NC, ALSO HE STATES THAT HE WAS CALLED BY HIS DR TOLD THAT HIS BLOOD LEVEL IS LOW....PER PATIENT AND HE HAS HAD UPPER AND LOWER ENDOSCOPY WHICH WERE NEG FOR SOURCE OF BLEEDING...HOWEVER PATIENT STATES THAT HIS STOOLS HAVE BEEN DARK AND TARRY LOOKING OVER PAST FEW DAYS, DENIES BRIGHT RED BLOOD PER RECTUM PFSH Past Medical History Hx Anticoagulant Therapy: Yes Arthritis: Yes (FEET, HANDS) Asthma: No Atrial Fibrillation: Yes Autoimmune Disease: No Blood Disorders: No Anxiety: Yes Depression: Yes Heart Rhythm Problems: Yes (ATRIAL FIB) Cancer: No Cardiovascular Problems: Yes High Cholesterol: Yes Chemotherapy: No Chest Pain: No Congestive Heart Failure: Yes COPD: Yes Cerebrovascular Accident: No Diabetes: Yes 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) Endocrine: Yes Gastrointestinal Disorders: No GERD: No Glaucoma: No Genitourinary: Yes Headaches: Yes (R/T SINUSITIS) Hepatitis: No Hiatal Hernia: No Hypertension: Yes Immune Disorder: No Implanted Vascular Access Dvce: Yes Kidney Stones: No Musculoskeletal: No Neurologic: Yes Psychiatric: Yes Reproductive: No Respiratory: Yes Integumentary: Yes (RIGHT SECOND TOE INFECTION) Immunizations Current: No Migraines: No Radiation Therapy: No Renal Failure: No Seizures: No Sickle Cell Disease: No Sleep Apnea: Yes (CPAP AT NIGHT AT TIMES) Thyroid Disease: No Ulcer: No Past Surgical History Abdominal Surgery: Yes (HERNIA REPAIR) AICD: Yes Appendectomy: Yes Arteriovenous Shunt: No Body Medical Devices: KNEE REPLACEMENT LEFT AND RIGHT, AICD Cardiac Surgery: Yes (PACEMAKER) Cholecystectomy: Yes Ear Surgery: No Endocrine Surgery: No Eye Surgery: Yes (L & R EYE CATARACTS) Genitourinary Surgery: No Gynecologic Surgery: No Insulin Pump: No Joint Replacement: Yes (BILATERAL TKR) Neurologic Surgery: No Oral Surgery: No Pacemaker: Yes (REPLACED IN NOVEMBER 2016) Thoracic Surgery: No Other Surgery: Yes (pacemaker placement, herniated appendix) Social History Alcohol Use: No Tobacco Use: No Substance Use: No Allergies-Medications (Allergen,Severity, Reaction): Coded Allergies: MRI PRECAUTION (Verified Allergy, Severe, 05/19/17) Uncoded Allergies: STEROIDS (Adverse Reaction, Mild, 01/10/17) ELEVATED BLOOD SUGAR Reported Meds & Prescriptions Reported Meds & Active Scripts Active Feosol (Ferrous Sulfate) 200 Mg Tab 200 Mg PO BIDPC Vitamin D3 (Cholecalciferol) 2,000 Unit Cap 2,000 Units PO DAILY Oxygen tank (Oxygen) 1 Ea Tank 2 Liter JAKE.CANULA CONTINUOUS Oxygen Concentrator Portable Gaseous 2 L/min via Nasal Cannula Continuous For 99 months Amitriptyline (Amitriptyline HCl) 25 Mg Tab 25 Mg PO HS Digoxin 0.125 Mg Tab 0.125 Mg PO DAILY Reported Lantus Inj (Insulin Glargine) 1,000 Unit/10 Ml Vial 10 Units SQ HS Warfarin 5 Mg Tab 5 Mg PO DAILYHS Trazodone (Trazodone HCl) 50 Mg Tab 50 Mg PO HS Potassium Chloride ER (Potassium Chloride) 20 Meq Tab 20 Meq PO DAILY Gabapentin 300 Mg Cap 300 Mg PO TID Cormax Scalp Topical (Clobetasol Propionate) 0.05% Soln 1 Applic TOPICAL BID Hydrocodone-Acetaminophen 5-325 mg Tab 2 Tab PO Q6H PRN Vitamin B12 (Cyanocobalamin) 100 Mcg Tab 100 Mcg PO DAILY Lorazepam 2 Mg Tab 2 Mg PO Q6H PRN Flonase Nasal [place] (Fluticasone Nasal [place]) 50 Mcg/Act [place] 100 Mcg EACH NARE BID Acarbose 100 Mg Tab 100 Mg PO TID Take with first bite of meal. Omeprazole 40 Mg Cap 40 Mg PO BID Atorvastatin (Atorvastatin Calcium) 40 Mg Tab 40 Mg PO DAILY Torsemide 20 Mg Tab 40 Mg PO BID Lisinopril 20 Mg Tab 20 Mg PO DAILY Bystolic (Nebivolol) 10 Mg Tab 10 Mg PO BID Finasteride 5 Mg Tab 5 Mg PO HS Do not crush. Review of Systems Except as stated in HPI: all other systems reviewed are Neg Respiratory: Positive: Shortness of Breath Physical Exam Narrative GENERAL: SKIN: Warm and dry....PALE HEAD: Atraumatic. Normocephalic. EYES: Pupils equal and round. No scleral icterus. No injection or drainage. ENT: No nasal bleeding or discharge. Mucous membranes pink and moist. NECK: Trachea midline. No JVD. CARDIOVASCULAR: Regular rate and rhythm. RESPIRATORY: ACCESSORY MM USE, TACHYPNEIC, DECREASED TV, YET RELATIVELY CLEAR LUNG SOUNDS GASTROINTESTINAL: Abdomen soft, non-tender, nondistended. MUSCULOSKELETAL: Extremities without clubbing, cyanosis, or edema. No obvious deformities. NEUROLOGICAL: Awake and alert. No obvious cranial nerve deficits. Motor grossly within normal limits. Five out of 5 muscle strength in the arms and legs. Normal speech. PSYCHIATRIC: Appropriate mood and affect; insight and judgment normal. Data Data Last Documented VS Vital Signs Date Time Temp Pulse Resp B/P (MAP) Pulse Ox O2 Delivery O2 Flow Rate FiO2 05/19/17 22:58 Venturi Mask 6.00 50 05/19/17 22:47 100 05/19/17 22:44 71 18 127/61 (83) Orders Orders Electrocardiogram (05/19/17 22:41) Complete Blood Count With Diff (05/19/17 22:41) Comprehensive Metabolic Panel (05/19/17 22:41) Ckmb (Isoenzyme) Profile (05/19/17 22:41) Troponin I (05/19/17 22:41) B-Type Natriuretic Peptide (05/19/17 22:41) Prothrombin Time / Inr (Pt) (05/19/17 22:41) Act Partial Throm Time (Ptt) (05/19/17 22:41) Arterial Blood Gas (Abg) (05/19/17 22:41) Lipase (05/19/17 22:41) Digoxin (05/19/17 22:41) Thyroid Stimulating Hormone (05/19/17 22:41) Influenzae A/B Antigen (05/19/17 22:41) Chest, Single Ap (05/19/17 22:41) Iv Access Insert/Monitor (05/19/17 22:41) Ecg Monitoring (05/19/17 22:41) Oxygen Administration (05/19/17 22:41) Oximetry (05/19/17 22:41) Urinary Catheter Insert/Apply (05/19/17 22:41) Admit To Inpatient (05/20/17 ) Vital Signs (Adult) Q4H (05/20/17 01:09) Activity Oob With Assistance (05/20/17 01:09) Cabinet Finisher / Telemetry .CONTINUOUS (05/20/17 01:09) Intake + Output CRIS.QSHIFT (05/20/17 01:09) Diet 1800 Ada Cons Carb (05/20/17 Breakfast) Diet Heart Healthy (05/20/17 Breakfast) Sodium Chloride 0.9% Flush (Ns Flush) (05/20/17 01:15) Sodium Chloride 0.9% Flush (Ns Flush) (05/20/17 09:00) Basic Metabolic Panel (Bmp) (05/20/17 06:00) Complete Blood Count With Diff (05/20/17 06:00) Pt Request For Service (05/20/17 01:09) Case Management Consult (05/20/17 01:09) Naloxone Inj (Narcan Inj) (05/20/17 01:15) Inpatient Certification (05/20/17 ) Resp Bipap / Cpap Non Invas Vt (05/20/17 ) Type And Screen (05/20/17 01:09) Red Blood Cells (Rbc) (05/20/17 01:09) Labs Laboratory Tests Test 05/19/17 22:50 05/19/17 22:58 White Blood Count 4.1 TH/MM3 Red Blood Count 2.67 MIL/MM3 Hemoglobin 6.4 GM/DL Hematocrit 21.3 % Mean Corpuscular Volume 79.8 FL Mean Corpuscular Hemoglobin 23.8 PG Mean Corpuscular Hemoglobin Concent 29.8 % Red Cell Distribution Width 22.0 % Platelet Count 205 TH/MM3 Mean Platelet Volume 8.4 FL Neutrophils (%) (Auto) 72.3 % Lymphocytes (%) (Auto) 11.5 % Monocytes (%) (Auto) 10.2 % Eosinophils (%) (Auto) 3.6 % Basophils (%) (Auto) 2.4 % Neutrophils # (Auto) 3.0 TH/MM3 Lymphocytes # (Auto) 0.5 TH/MM3 Monocytes # (Auto) 0.4 TH/MM3 Eosinophils # (Auto) 0.1 TH/MM3 Basophils # (Auto) 0.1 TH/MM3 CBC Comment AUTO DIFF Differential Total Cells Counted 100 Neutrophils % (Manual) 85 % Lymphocytes % 5 % Monocytes % 5 % Eosinophils % 2 % Basophils % 3 % Neutrophils # (Manual) 3.5 TH/MM3 Nucleated Red Blood Cells 1 /100 WBC Differential Comment FINAL DIFF MANUAL Platelet Estimate NORMAL Platelet Morphology Comment NORMAL Polychromasia 2.6 % Ovalocytes 1+ Acanthocytes OCC Keratocytes OCC Prothrombin Time 18.6 SEC Prothromb Time International Ratio 1.6 RATIO Activated Partial Thromboplast Time 30.2 SEC Blood Urea Nitrogen 49 MG/DL Creatinine 2.15 MG/DL Random Glucose 217 MG/DL Total Protein 6.6 GM/DL Albumin 3.2 GM/DL Calcium Level 8.4 MG/DL Alkaline Phosphatase 50 U/L Aspartate Amino Transf (AST/SGOT) 8 U/L Alanine Aminotransferase (ALT/SGPT) 9 U/L Total Bilirubin 0.5 MG/DL Sodium Level 139 MEQ/L Potassium Level 5.3 MEQ/L Chloride Level 100 MEQ/L Carbon Dioxide Level 31.9 MEQ/L Anion Gap 7 MEQ/L Estimat Glomerular Filtration Rate 30 ML/MIN Total Creatine Kinase 39 U/L Troponin I 0.03 NG/ML B-Type Natriuretic Peptide 383 PG/ML Lipase 155 U/L Thyroid Stimulating Hormone 3rd Gen 4.740 uIU/ML Digoxin Level 0.8 NG/ML Blood Gas Puncture Site RT RADIAL Blood Gas Patient Temperature 98.6 Blood Gas HCO3 30 mmol/L Blood Gas Base Excess 4.1 mmol/L Blood Gas Oxygen Saturation 92 % Arterial Blood pH 7.33 Arterial Blood Partial Pressure CO2 59 mmHg Arterial Blood Partial Pressure O2 78 mmHG Arterial Blood Oxygen Content 8.2 Vol % Arterial Blood Carboxyhemoglobin 2.1 % Arterial Blood Methemoglobin 0.8 % Blood Gas Hemoglobin 6.2 G/DL Oxygen Delivery Device Venti Mask Blood Gas Liter Flow 6 L/M Blood Gas Inspired Oxygen 50 % [facility] Medical Decision Making Medical Screen Exam Complete: Yes Emergency Medical Condition: Yes Medical Record Reviewed: Yes Interpretation(s) PACED RHYTHM NOTED Differential Diagnosis PNA V PTX V COPD EXAC V CHF V ANEMIA Narrative Course EKG PACED RHYTHM...H/H FOUND TO BE SEVERELY ANEMIC, CXR NEG FOR PTX/PNA...NO E/ O COPD EXAC NOR PULM EDEMA AT THIS POINT. PT WILL BE ADMITTED AND GENTLY TRANSFUSED Diagnosis Primary Impression: Hypoxemia Additional Impression: Symptomatic anemia Admitting Information Admitting Physician Requests: Admit Jey Nuno MD May 19, 2017 22:54
[2017-05-19 23:13] LABS: BASOPHIL # 0.1 TH/MM3 (0-0.2); BASOPHIL % 2.4 % (0.0-2.0); EOSINOPHIL # 0.1 TH/MM3 (0-0.4); EOSINOPHIL % 3.6 % (0.0-4.0); HEMATOCRIT 21.3 % (39.0-51.0); LYMPH % 11.5 % (9.0-44.0); LYMPHOCYTE # 0.5 TH/MM3 (1.0-4.8); MEAN CELL VOLUME 79.8 FL (80.0-100.0); MEAN CORPUSCULAR HEMOGLOBIN 23.8 PG (27.0-34.0); MONO % 10.2 % (0.0-8.0); NEUT % 72.3 % (16.0-70.0); PLATELET COUNT 205 TH/MM3 (150-450); RED BLOOD COUNT 2.67 MIL/MM3 (4.50-5.90); WHITE BLOOD COUNT 4.1 TH/MM3 (4.0-11.0)
[2017-05-19 23:17] LABS: HEMO FLAGS AUTO DIFF; MEAN CORPUSCULAR HGB CONC 29.8 % (32.0-36.0)
--- NOTE | 2017-05-19 23:20 | RADRPT ---
EXAM DATE/TIME: 05/19/2017 22:54 [facility] COMPARISON: CHEST SINGLE AP, February 13, 2017, 4:55. INDICATIONS : Short of breath. MEDICAL HISTORY : Diabetes mellitus type II. Cardiovascular disease. Hypertension. SURGICAL HISTORY : Pacemaker. ENCOUNTER: Initial ACUITY: 1 day PAIN SCORE: 0/10 LOCATION: Bilateral chest FINDINGS: A single view of the chest demonstrates cardiomegaly. Pacer leads in right atrium and right ventricle . There is basilar airspace disease with some interstitial prominence most characteristic of mild chris ma. Small effusions. No pneumothorax. CONCLUSION: 1. Mild congestive heart failure. Findings similar to February 13. Kamaljit Natarajan MD on May 19, 2017 at 23:17 Board Certified Radiologist. This report was verified electronically.
[2017-05-19 23:21] LABS: APTT (PATIENT) 30.2 SEC (24.3-30.1); INTERNATIONAL NORMALIZED RATIO 1.6 RATIO; PROTHROMBIN TIME - PATIENT 18.6 SEC (9.8-11.6)
[2017-05-19 23:36] LABS: ALT (GPT) 9 U/L (12-78); ANION GAP 7 MEQ/L (5-15); AST (GOT) 8 U/L (15-37); BICARBONATE 31.9 MEQ/L (21.0-32.0); BLOOD UREA NITROGEN 49 MG/DL (7-18); CHLORIDE 100 MEQ/L (98-107); GLOMERULAR FILTRATION RATE 30 ML/MIN (>89); POTASSIUM 5.3 MEQ/L (3.5-5.1); SODIUM (NA) 139 MEQ/L (136-145)
[2017-05-19 23:50] LABS: ALKALINE PHOSPHATASE 50 U/L (45-117); DIGOXIN 0.8 NG/ML (0.8-2.0); TOTAL BILIRUBIN ADULT 0.5 MG/DL (0.2-1.0)
[2017-05-19 23:52] LABS: CREATINE KINASE 39 U/L (39-308)
[2017-05-19 23:56] LABS: BASOPHILS 3 % (0-2); CORRECTED NUCLEATED RBC 1 /100 WBC (0-0); EOSINOPHILS 2 % (0-4); NEUTROPHIL # MANUAL DIFF 3.5 TH/MM3 (1.8-7.7); PLATELET ESTIMATE SMEAR NORMAL (NORMAL); PLATELET MORPHOLOGY NORMAL (NORMAL); POLYS (SEG NEUTROPHILS) 85 % (16-70); SCAN/DIFF FINAL DIFF MANUAL; WBC DIFF SAMPLE 100
[2017-05-19 23:57] LABS: ACANTHOCYTES OCC (NORMAL); KERATOCYTES OCC (NORMAL); OVALOCYTES 1+ (NORMAL)
[2017-05-19 23:58] LABS: POLYCHROMASIA 2.6 % (0.0-1.9)
[2017-05-20] VITALS (51 sets, daily range): BP systolic 103–150; BP diastolic 46–75; PULSE 67–86; RESP 16–22; TEMP 96.7–97.9; O2SAT 69–100
[2017-05-20 00:05] LABS: BLOOD GAS BASE EXCESS 4.1 mmol/L (-2-2); BLOOD GAS CARBOXYHEMOGLOBIN 2.1 % (0-4); BLOOD GAS HCO3 30 mmol/L (22-26); BLOOD GAS METHEMOGLOBIN 0.8 % (0-2); BLOOD GAS O2 HGB SATURATION 92 % (90-100); BLOOD GAS OXYGEN CONTENT 8.2 Vol % (12.0-20.0); BLOOD GAS PCO2 59 mmHg (38-42); BLOOD GAS PO2 78 mmHG (61-120); BLOOD GAS TOTAL HGB 6.2 G/DL (12.0-16.0); TEMP CORR TO 98.6
[2017-05-20 00:06] LABS: CRITICAL VALUE YES; DRAW SITE RT RADIAL; FIO2 50 %; LITER FLOW 6 L/M; NUMBER OF ARTERIAL PUNCTURES 1; OXYGEN DEVICE Venti Mask; STAT YES; ULNAR PULSE PRESENT
[2017-05-20] MEDS ORDERED: SODIUM CHLORIDE 0.9% FLUSH 10 ML FLUSH IV FLUSH PRN (01:15)
[2017-05-20] MEDS ORDERED: NALOXONE HCL 0.4 MG/ML AMP IV PUSH PRN (01:15)
[2017-05-20] MEDS ORDERED: SODIUM CHLOR 0.9% 250 ML INJ 250 ML IV ONE (01:15)
[2017-05-20] MEDS ORDERED: FUROSEMIDE 20 MG/2 ML VIAL IV PUSH PRN (01:15)
[2017-05-20] MEDS ORDERED: FUROSEMIDE 40 MG/4 ML VIAL IV PUSH ONE (01:15)
--- NOTE | 2017-05-20 02:31 | HHI.HP ---
HPI Service [facility] Primary Care Physician Phyllis Moran MD Admission Diagnosis SYMPTOMATIC ANEMIA, HYPOXEMIA Diagnoses: Chief Complaint: anemai, sob Travel History International Travel<30 Days: No Contact w/Intl Traveler <30 Da: No Traveled to Known Affected Are: No History of Present Illness Written by JS Caputo acting as scribe for [Chanteng] on 05/20/17 at 02: 23. 81 y/o male with a history of Iron deficiency anemia, DM, COPD on home o2 2L, enlarged prostate, Afib, anxiety, depression, CHF and HTN presented to the ED with complaints of sob and low hemoglobin. Patient states Dr Colon's office called him and his labs showed a low hemoglobin and he was instructed to come to the ED. Patient states for the last few days he has been having increasing shortness of breath and leg swelling with associated dizziness. He did fall today when walking in the house, no LOC, no injury. He denies any chest pain, cough, fever or chills. Patient does have chronic anemia in which he follows with Dr. Garcia outpatient. Last seen 05/09 in hematology office, hgb was 10 at this time Dye Mixer: Dr. Colon PCP: Dr. Xie Review of Systems Except as stated in HPI: all other systems reviewed are Neg Past Family Social History Past Medical History DM COPD on home o2 2L Afib anxiety depression Diastolic CHF HTN Sleep apnea Enlarged prostate Past Surgical History Pacemaker/AICD Appendectomy Cholecystectomy Bilateral knee replacement Hernia repair Reported Medications Reported Meds & Active Scripts Active Feosol (Ferrous Sulfate) 200 Mg Tab 200 Mg PO BIDPC Vitamin D3 (Cholecalciferol) 2,000 Unit Cap 2,000 Units PO DAILY Oxygen tank (Oxygen) 1 Ea Tank 2 Liter JAKE.CANULA CONTINUOUS Oxygen Concentrator Portable Gaseous 2 L/min via Nasal Cannula Continuous For 99 months Amitriptyline (Amitriptyline HCl) 25 Mg Tab 25 Mg PO HS Digoxin 0.125 Mg Tab 0.125 Mg PO DAILY Reported Lantus Inj (Insulin Glargine) 1,000 Unit/10 Ml Vial 10 Units SQ HS Warfarin 5 Mg Tab 5 Mg PO DAILYHS Trazodone (Trazodone HCl) 50 Mg Tab 50 Mg PO HS Potassium Chloride ER (Potassium Chloride) 20 Meq Tab 20 Meq PO DAILY Gabapentin 300 Mg Cap 300 Mg PO TID Cormax Scalp Topical (Clobetasol Propionate) 0.05% Soln 1 Applic TOPICAL BID Hydrocodone-Acetaminophen 5-325 mg Tab 2 Tab PO Q6H PRN Vitamin B12 (Cyanocobalamin) 100 Mcg Tab 100 Mcg PO DAILY Lorazepam 2 Mg Tab 2 Mg PO Q6H PRN Flonase Nasal [place] (Fluticasone Nasal [place]) 50 Mcg/Act [place] 100 Mcg EACH NARE BID Acarbose 100 Mg Tab 100 Mg PO TID Take with first bite of meal. Omeprazole 40 Mg Cap 40 Mg PO BID Atorvastatin (Atorvastatin Calcium) 40 Mg Tab 40 Mg PO DAILY Torsemide 20 Mg Tab 40 Mg PO BID Lisinopril 20 Mg Tab 20 Mg PO DAILY Bystolic (Nebivolol) 10 Mg Tab 10 Mg PO BID Finasteride 5 Mg Tab 5 Mg PO HS Do not crush. Allergies: Coded Allergies: MRI PRECAUTION (Verified Allergy, Severe, 05/19/17) Uncoded Allergies: STEROIDS (Adverse Reaction, Mild, 01/10/17) ELEVATED BLOOD SUGAR Active Ordered Medications Current Medications Medications (Trade) Dose Ordered Sig/Faviola Route Start Time Stop Time Status Last Admin (NS Flush) 2 ml UNSCH PRN IV FLUSH 05/20/17 01:15 (NS Flush) 2 ml BID IV FLUSH 05/20/17 09:00 (Narcan Inj) 0.4 mg UNSCH PRN IV PUSH 05/20/17 01:15 Sodium Chloride 250 ml @ 15 mls/hr ONCE ONCE IV 05/20/17 01:15 05/20/17 17:54 (Lasix Inj) 40 mg DAILY IV PUSH 05/20/17 09:00 (Lasix Inj) 20 mg ONCE PRN IV PUSH 05/20/17 01:15 05/20/17 21:00 Family History Family history significant for cancer. Social History Tobacco use: Denies, quit 2011 Alcohol use: Denies Illicit drug use: Denies Physical Exam Vital Signs Vital Signs Date Time Temp Pulse Resp B/P (MAP) Pulse Ox O2 Delivery O2 Flow Rate FiO2 05/20/17 01:25 97 35 05/19/17 22:58 Venturi Mask 6.00 50 05/19/17 22:47 100 Non-Rebreather 15.00 05/19/17 22:44 71 18 127/61 (83) 69 05/19/17 10:45 100 12.00 05/19/17 10:45 100 Partial Rebreather 12.00 Physical Exam GENERAL: This is a well-nourished patient with difficulty breathing SKIN: No rashes, ecchymoses or lesions. Cool and dry. HEAD: Atraumatic. Normocephalic. EYES: Pupils equal round and reactive. ENT: Nose without bleeding, purulent drainage or septal hematoma. Airway patent. NECK: Trachea midline. No JVD CARDIOVASCULAR: Regular rate and rhythm without murmurs, gallops, or rubs. RESPIRATORY:Diminished breath sounds, No wheezes, rales, or rhonchi. On bipap GASTROINTESTINAL: Abdomen soft, non-tender, nondistended. No hepato-splenomegaly , or palpable masses. No guarding. MUSCULOSKELETAL: Bilateral lower extremity edema. No joint tenderness, effusion , or edema noted. No calf tenderness NEUROLOGICAL: Awake and alert. Motor and sensory grossly within normal limits. Normal speech. Laboratory Laboratory Tests Test 05/19/17 22:50 05/19/17 22:58 White Blood Count 4.1 Red Blood Count 2.67 Hemoglobin 6.4 Hematocrit 21.3 Mean Corpuscular Volume 79.8 Mean Corpuscular Hemoglobin 23.8 Mean Corpuscular Hemoglobin Concent 29.8 Red Cell Distribution Width 22.0 Platelet Count 205 Mean Platelet Volume 8.4 Neutrophils (%) (Auto) 72.3 Lymphocytes (%) (Auto) 11.5 Monocytes (%) (Auto) 10.2 Eosinophils (%) (Auto) 3.6 Basophils (%) (Auto) 2.4 Neutrophils # (Auto) 3.0 Lymphocytes # (Auto) 0.5 Monocytes # (Auto) 0.4 Eosinophils # (Auto) 0.1 Basophils # (Auto) 0.1 CBC Comment AUTO DIFF Differential Total Cells Counted 100 Neutrophils % (Manual) 85 Lymphocytes % 5 Monocytes % 5 Eosinophils % 2 Basophils % 3 Neutrophils # (Manual) 3.5 Nucleated Red Blood Cells 1 Differential Comment FINAL DIFF MANUAL Platelet Estimate NORMAL Platelet Morphology Comment NORMAL Polychromasia 2.6 Ovalocytes 1+ Acanthocytes OCC Keratocytes OCC Prothrombin Time 18.6 Prothromb Time International Ratio 1.6 Activated Partial Thromboplast Time 30.2 Blood Urea Nitrogen 49 Creatinine 2.15 Random Glucose 217 Total Protein 6.6 Albumin 3.2 Calcium Level 8.4 Alkaline Phosphatase 50 Aspartate Amino Transf (AST/SGOT) 8 Alanine Aminotransferase (ALT/SGPT) 9 Total Bilirubin 0.5 Sodium Level 139 Potassium Level 5.3 Chloride Level 100 Carbon Dioxide Level 31.9 Anion Gap 7 Estimat Glomerular Filtration Rate 30 Total Creatine Kinase 39 Troponin I 0.03 B-Type Natriuretic Peptide 383 Lipase 155 Thyroid Stimulating Hormone 3rd Gen 4.740 Digoxin Level 0.8 Blood Gas Puncture Site RT RADIAL Blood Gas Patient Temperature 98.6 Blood Gas HCO3 30 Blood Gas Base Excess 4.1 Blood Gas Oxygen Saturation 92 Arterial Blood pH 7.33 Arterial Blood Partial Pressure CO2 59 Arterial Blood Partial Pressure O2 78 Arterial Blood Oxygen Content 8.2 Arterial Blood Carboxyhemoglobin 2.1 Arterial Blood Methemoglobin 0.8 Blood Gas Hemoglobin 6.2 Oxygen Delivery Device Venti Mask Blood Gas Liter Flow 6 Blood Gas Inspired Oxygen 50 Result Diagram: 05/19/17224905/19/172249 Imaging Last Impressions Chest X-Ray 05/19/172240 Signed Impressions: Service Date/Time: April 22:54 - CONCLUSION: 1. Mild congestive heart failure. Findings similar to February 13. Kamaljit Natarajan MD Caprini VTE Risk Assessment Caprini VTE Risk Assessment: Mod/High Risk (score >= 2) Caprini Risk Assessment Model Point Value = 1 Point Value = 2 Point Value = 3 Point Value = 5 Age 41-60 Minor surgery BMI > 25 kg/m2 Swollen legs Varicose veins or History of unexplained or recurrent spontaneous Oral contraceptives or hormone replacement Sepsis (< 1 month) Serious lung disease, including pneumonia (< 1 month) Abnormal pulmonary function Acute myocardial infarction Congestive heart failure (< 1 month) History of inflammatory bowel disease Medical patient at bed rest Age 61-74 Arthroscopic surgery Major open surgery (> 45 min) Laparoscopic surgery (> 45 min) Malignancy Confined to bed (> 72 hours) Immobilizing plaster cast Central venous access Age >= 75 History of VTE Family history of VTE Factor V Leiden Prothrombin [id number] Lupus anticoagulant Anticardiolipin antibodies Elevated serum homocysteine Heparin-induced thrombocytopenia Other congenital or acquired thrombophilia Stroke (< 1 month) Elective arthroplasty Hip, pelvis, or leg fracture Acute spinal cord injury (< 1 month) Prophylaxis Regimen Total Risk Factor Score Risk Level Prophylaxis Regimen 0-1 Low Early ambulation 2 Moderate Order ONE of the following: *Sequential Compression Device (SCD) *Heparin 5000 units SQ BID 3-4 Higher Order ONE of the following medications: *Heparin 5000 units SQ TID *Enoxaparin/Lovenox 40 mg SQ daily (WT < 150 kg, CrCl > 30 mL/min) *Enoxaparin/Lovenox 30 mg SQ daily (WT < 150 kg, CrCl > 10-29 mL/min) *Enoxaparin/Lovenox 30 mg SQ BID (WT < 150 kg, CrCl > 30 mL/min) AND/OR *Sequential Compression Device (SCD) 5 or more Highest Order ONE of the following medications: *Heparin 5000 units SQ TID (Preferred with Epidurals) *Enoxaparin/Lovenox 40 mg SQ daily (WT < 150 kg, CrCl > 30 mL/min) *Enoxaparin/Lovenox 30 mg SQ daily (WT < 150 kg, CrCl > 10-29 mL/min) *Enoxaparin/Lovenox 30 mg SQ BID (WT < 150 kg, CrCl > 30 mL/min) AND *Sequential Compression Device (SCD) Assessment and Plan Problem List: (1) CHF exacerbation ICD Code: I50.9 - Heart failure, unspecified (2) Symptomatic anemia ICD Code: D64.9 - Anemia, unspecified Status: Acute (3) NEREYDA (acute kidney injury) ICD Code: N17.9 - NEREYDA (acute kidney injury) Status: Acute (4) Acute respiratory failure ICD Code: J96.00 - Acute respiratory failure, unspecified whether with hypoxia or hypercapnia Assessment and Plan 81 y/o male with a history of DM, COPD on home o2 2L,enlarged prostate, Afib, anxiety, depression, CHF and HTN presented to the ED with complaints of sob and low hemoglobin. Symptomatic anemia, Hgb 6.4, baseline 8-10, mildly positive occult stool, chronic MARYAM -Transfuse 2 units, slow infusion over 4 hours with Lasix between units - also give 40mg IV lasix one dose prior to transfusion of first unit. -Consult Hematology, Dr. Garcia- for possible bone marrow biopsy -Cont home iron supplement -Consult GI for recommendations, patient may need out patient camera endoscopy Acute respiratory Failure due to Acute CHF exacerbation on chronic diastolic CHF , BNP 383, Patient with hypoxia 72% on 2L - slow transfusion as above - diuresis before and after transfusion Last Echo shows LVH, EF 55% Chest xray reviewed and shows mild congestive heart failure ABG reviewed and shows PH 1.33, PCO2 58 -Lasix 40 mg IV Daily -Bipap ordered 07/26 Acute Kidney injury, creatine 2.1, baseline 1.3, suspected due to bleeding -Labs in am -Avoid nephrotoxins -Consult nephrology if no improvement in creatine seen Hyperkalemia, potassium 5.3 -Lasix given, trend labs DM, chronic -Accu checks with SSI -Resume home Levemir HS DVT prophylaxis: SCDs, hold Coumadin for now due to anemia This note was transcribed by roma [Elle Snyder]. I, Dr. Eran Reddy personally performed the history, physical exam, and medical decision making; and confirmed the accuracy of the information in the transcribed note. Authenticated by Dr. Eran Reddy on05/20/17 at 02:23. Discussed Condition With Patient and Patient's Physician Certification 2 Midnight Certification Type: Admission for Inpatient Services Order for Inpatient Services The services are ordered in accordance with Medicare regulations or non- Medicare payer requirements, as applicable. In the case of services not specified as inpatient-only, they are appropriately provided as inpatient services in accordance with the 2-midnight benchmark. Estimated LOS (days): 3 days is the estimated time the patient will need to remain in the hospital, assuming treatment plan goals are met and no additional complications. Post-Hospital Plan: Vidalia Elle Snyder May 20, 2017 02:31 Eran Reddy MD May 20, 2017 10:32
[2017-05-20] MEDS ORDERED: DEXTROSE 50% IN WATER 50 ML VIAL(D50) IV PUSH PRN (03:00)
[2017-05-20] MEDS ORDERED: GLUCAGON 1 MG/ML VIAL OTHER PRN (03:00)
[2017-05-20] MEDS: FUROSEMIDE 40 MG/4 ML VIAL IV PUSH SCH (05:27)
[2017-05-20 07:37] LABS: AUTOMATED NEUTROPHIL # 2.3 TH/MM3 (1.8-7.7); BASOPHIL # 0.1 TH/MM3 (0-0.2); BASOPHIL % 2.3 % (0.0-2.0); EOSINOPHIL # 0.1 TH/MM3 (0-0.4); EOSINOPHIL % 3.6 % (0.0-4.0); HEMATOCRIT 22.1 % (39.0-51.0); LYMPH % 12.1 % (9.0-44.0); LYMPHOCYTE # 0.4 TH/MM3 (1.0-4.8); MEAN CELL VOLUME 79.5 FL (80.0-100.0); MEAN CORPUSCULAR HEMOGLOBIN 23.9 PG (27.0-34.0); MONO % 11.2 % (0.0-8.0); NEUT % 70.8 % (16.0-70.0); PLATELET COUNT 184 TH/MM3 (150-450); RED BLOOD COUNT 2.77 MIL/MM3 (4.50-5.90); RED CELL DISTRIBUTION WIDTH 21.5 % (11.6-17.2); WHITE BLOOD COUNT 3.2 TH/MM3 (4.0-11.0)
[2017-05-20 07:47] LABS: HEMO FLAGS AUTO DIFF
[2017-05-20 08:06] LABS: BICARBONATE 36.9 MEQ/L (21.0-32.0); POTASSIUM 4.8 MEQ/L (3.5-5.1)
[2017-05-20] MEDS: SODIUM CHLORIDE 0.9% FLUSH 10 ML FLUSH IV FLUSH SCH ×2 (09:00→21:03)
[2017-05-20 09:02] LABS: OVALOCYTES 2+ (NORMAL); TEARDROP RBCS 1+ (NORMAL)
[2017-05-20 09:03] LABS: SCAN/DIFF AUTO DIFF CONFIRMED
[2017-05-20] MEDS: INSULIN ASPART SUPPLEMENTAL SCALE SQ SCH ×4 (09:11→21:26)
[2017-05-20] MEDS: ATORVASTATIN 40 MG TAB PO SCH (09:13)
[2017-05-20] MEDS: NEBIVOLOL 10 MG TAB PO SCH ×2 (09:13→21:03)
[2017-05-20] MEDS: DIGOXIN 0.125 MG TAB PO SCH (09:13)
[2017-05-20] MEDS: FERROUS SULFATE 300 MG /5ML UDC PO SCH ×2 (09:15→17:24)
--- NOTE | 2017-05-20 09:57 | MB ---
cc: YIMI DOCKERY DATE OF CONSULTATION: 05/20/2017 REASON FOR CONSULTATION Continued anemia. PATIENT PROFILE The patient is an 81-year-old white male. He is . He is retired. His job was [employer]. He stopped smoking 15 years ago and previously smoked two packs of cigarettes per day for 30 years. He has not had any alcohol in many years. He lives with his spouse. HISTORY OF PRESENT ILLNESS The patient is an 81-year-old male who has had recurrent anemia dating back to Jan 07 2017. Prior to this he had hemoglobins in the 11-12 range. On January 07 he had a hemoglobin of 8.8. At one point the anemia was felt to be due to bleeding following placement of a pacemaker. He has continued to have recurrent anemia and has received packed cells on February 14, April 01 and May 20. He was felt to have had anemia secondary to GI bleeding. He had iron studies on 02/13/2017. Ferritin was 34, iron 43, TIBC 510, and therefore the saturation was 8%. He had a previous iron saturation of 3.5% in 2012. He underwent a GI evaluation including upper and lower endoscopy. On 01/26/2017 he had a colonoscopy. No bleeding site was identified. A tubular adenoma was removed. He had an upper endoscopy and was found to have reactive gastropathy and focal mild and acute inflammation. A Wilma stain was negative for Helicobacter. He has atrial fibrillation and takes Coumadin. He denies any bleeding. He was given IV iron, 1625 mg on 03/30/2017. Over the past week he has noticed increasing shortness of breath. He went to the emergency room on 05/19/2017. Hemoglobin was 6.4, white count 4000, platelets 205,000. Differential was unremarkable except for a single nucleated red cell. There was polychromasia noted. On 04/09/2017 he had a hemoglobin of 10.3, white count 5000 and platelets 226,000. He is now receiving packed cells. Other studies included lytes, BUN and creatinine with the BUN being 50, creatinine 1.94. TSH on 05/19/2017 is 4.7. Total bilirubin is 0.5. Antibody testing by the blood bank on his red cells shows no antibody. PAST SURGICAL HISTORY 1. Pacemaker defibrillator placement. 2. Cataract removal. 3. Left knee surgery 2013. 4. Right knee surgery 2013. 5. Appendectomy. PAST MEDICAL HISTORY 1. Recurrent anemia, presumed to be due to GI bleeding without a source identified. 2. COPD. 3. Atrial fibrillation. 4. BPH. 5. Congestive heart failure. 6. Diabetes. 7. Elevated cholesterol. 8. Hypertension. 9. Sleep apnea with CPAP. MEDICATIONS Medications prior to admission: 1. Coumadin. 2. Trazodone. 3. Torsemide. 4. Potassium. 5. Bystolic. 6. Lisinopril. 7. Insulin. 8. Hydrocodone/acetaminophen. 9. Gabapentin. 10.B12. 11.Atorvastatin. 12.Acarbose. ALLERGIES No known allergies. REVIEW OF SYSTEMS No change in vision. Hearing is poor. No chest pain or palpitations. He has exertional shortness of breath. No abdominal pain. No blood in the stool. No melena, hematochezia or hematemesis. No dysuria or frequency. No bone pain other than minor arthritis. No focal weakness, although generalized weakness. No depression. PHYSICAL EXAMINATION GENERAL: An elderly frail and pale gentleman who is currently receiving a blood transfusion. VITAL SIGNS: Blood pressure 120/60, respiratory rate 18, pulse 80, afebrile. O2 sat is 100% on 4 liters. HEENT: Head is normocephalic. Sclera and conjunctiva are normal. Oropharynx is unremarkable. NECK: There is no cervical, supraclavicular, axillary or inguinal adenopathy. HEART: Regular rhythm. LUNGS: Clear. ABDOMEN: No hepatosplenomegaly or masses. EXTREMITIES: Trace edema. MUSCULOSKELETAL: No bone pain. NEUROLOGIC: No focal weakness. Cognition and affect are normal. RECTAL: Exam was done. Prostate is not enlarged. There are no masses. Stool is brown and heme positive. ASSESSMENT The patient is an 81-year-old male with recurrent anemia. The white count and platelet count are normal. The differential is unremarkable except for a single nucleated red cell. The stool is heme-positive and he is on Coumadin. What is odd is that there is not a history of significant GI bleeding although his stool is in fact positive. PLAN 1. I would recommend transfusing this gentleman to approximately a hemoglobin of 10 as he appears to have an ongoing blood loss. 2. Re-consult GI which has been done. 3. I have requested a repeat CBC in addition a reticulocyte count. 4. I have requested repeat iron studies to make sure that his iron is replete. 5. If there is documented continued anemia without evidence of any significant blood loss then he will require a bone marrow aspirate and biopsy. Dr. Garcia is away today. He will be returning Tuesday. MD MEL Ibarra/RIK /8:56 AM /9:25 AM MTDD
--- NOTE | 2017-05-20 10:07 | HHI.PR ---
Subjective Remarks Follow-up for anemia and respiratory failure Patient was doing well on BiPAP so was taken off the BiPAP and on nasal cannula. Denied any difficulty breathing on nasal cannula. Doing well. Deny any shortness of breathing or cough. His is at the bedside. Patient denies any GI bleed. His nurse Karis is at the bedside. Objective Vitals Vital Signs Date Time Temp Pulse Resp B/P (MAP) Pulse Ox O2 Delivery O2 Flow Rate FiO2 05/20/17 08:41 97.4 71 18 127/66 (86) 100 05/20/17 08:12 99 Nasal Cannula 4.00 05/20/17 07:43 100 BiPAP 35 05/20/17 07:40 100 35 05/20/17 06:20 96.9 73 20 124/66 100 05/20/17 06:15 96.9 70 20 118/75 97 05/20/17 06:10 97.0 70 20 115/57 97 05/20/17 06:10 97.0 70 20 115/57 97 05/20/17 06:05 96.7 70 20 123/68 69 05/20/17 06:00 97.1 70 122/72 98 05/20/17 06:00 68 05/20/17 05:55 97.0 70 20 122/65 100 05/20/17 05:50 96.9 71 20 136/73 99 05/20/17 05:45 97.0 70 20 104/63 95 05/20/17 05:41 97.0 71 22 117/68 98 05/20/17 05:35 97.0 70 16 121/63 100 05/20/17 05:30 97.0 69 16 116/63 100 05/20/17 05:25 119/58 05/20/17 05:20 96.9 71 16 110/70 99 05/20/17 05:15 97.0 70 16 115/46 100 05/20/17 05:10 97.0 69 20 113/60 98 05/20/17 05:05 96.9 70 20 117/64 99 05/20/17 05:00 97.0 70 20 120/63 97 05/20/17 05:00 70 05/20/17 04:55 97.0 67 20 123/66 100 05/20/17 04:50 96.7 70 16 103/70 96 05/20/17 04:46 97.0 70 20 138/68 98 05/20/17 04:30 97.0 70 22 103/52 (69) 93 05/20/17 04:27 97.0 70 22 120/64 94 05/20/17 04:00 68 05/20/17 03:25 98 35 05/20/17 03:10 05/20/17 01:32 70 16 116/59 (78) 100 BiPAP 05/20/17 01:25 97 35 05/19/17 22:58 Venturi Mask 6.00 50 05/19/17 22:47 100 Non-Rebreather 15.00 05/19/17 22:44 71 18 127/61 (83) 69 05/19/17 10:45 100 12.00 05/19/17 10:45 100 Partial Rebreather 12.00 I/O 05/19/17 05/19/17 05/19/17 05/20/17 05/20/17 05/20/17 07:00 15:00 23:00 07:00 15:00 23:00 Intake Total 10 ml Output Total 1000 ml Balance -990 ml Intake Blood Product IV Normal Saline Flush 10 ml Output Urine Total 1000 ml Result Diagram: 05/20/1772305/20/17723 Objective Remarks GENERAL: in NAD CARDIOVASCULAR: Regular rate and rhythm without murmurs, gallops, or rubs. RESPIRATORY: Bilateral crackles. Otherwise no rhonchi or wheezing. No accessory muscle use. GASTROINTESTINAL: Abdomen soft, non-tender, nondistended. MUSCULOSKELETAL: No cyanosis, or edema. BACK: Nontender without obvious deformity. No CVA tenderness. Medications and IVs Current Medications Sodium Chloride (NS Flush) 2 ml UNSCH PRN IV FLUSH FLUSH AFTER USING IV ACCESS ; Start 05/20/17 at 01:15 Sodium Chloride (NS Flush) 2 ml BID IV FLUSH ; Start 05/20/17 at 09:00 Naloxone HCl (Narcan Inj) 0.4 mg UNSCH PRN IV PUSH SEE LABEL COMMENTS; Start at 01:15 Sodium Chloride 250 ml @ 15 mls/hr ONCE ONCE IV ; Start 05/20/17 at 01:15; Stop 05/20/17 at 17:54 Furosemide (Lasix Inj) 40 mg ONCE ONCE IV PUSH Last administered on 05/20/17 01:51; Start 05/20/17 at 01:15; Stop 05/20/17 at 01:19; Status DC Furosemide (Lasix Inj) 40 mg DAILY IV PUSH Last administered on 05/20/17 05:27 ; Start 05/20/17 at 09:00 Furosemide (Lasix Inj) 20 mg ONCE PRN IV PUSH after EACH Unit of PRBC; Start at 01:15; Stop 05/20/17 at 21:00 Dextrose (D50w (Vial) Inj) 50 ml UNSCH PRN IV PUSH HYPOGLYCEMIA-SEE COMMENTS; Start 05/20/17 at 03:00 Glucagon (Glucagon Inj) 1 mg UNSCH PRN OTHER HYPOGLYCEMIA-SEE COMMENTS; Start 05/20/17 at 03:00 Insulin Aspart (NovoLOG SUPPLEMENTAL SCALE) 1 ACHS SLIDING SCALE SQ Last administered on 05/20/17 09:11; Start 05/20/17 at 08:00 Amitriptyline HCl (Elavil) 25 mg HS PO ; Start 05/20/17 at 21:00 Atorvastatin Calcium (Lipitor) 40 mg DAILY PO Last administered on 05/20/17 09 :13; Start 05/20/17 at 09:00 Digoxin (Lanoxin) 0.125 mg DAILY PO Last administered on 05/20/17 09:13; Start 05/20/17 at 09:00 Ferrous Sulfate (Ferrous Sulfate Liq) 200 mg BIDPC PO Last administered on 05/20 09:15; Start 05/20/17 at 09:00 Finasteride (Proscar) 5 mg HS PO ; Start 05/20/17 at 21:00 Insulin Detemir (Levemir Inj) 10 units HS SQ ; Start 05/20/17 at 21:00 Nebivolol (Bystolic) 10 mg BID PO Last administered on 05/20/17 09:13; Start 05/20/17 at 09:00 Trazodone HCl (Desyrel) 50 mg HS PO ; Start 05/20/17 at 21:00 A/P Problem List: (1) CHF exacerbation ICD Code: I50.9 - Heart failure, unspecified (2) Symptomatic anemia ICD Code: D64.9 - Anemia, unspecified Status: Acute (3) NEREYDA (acute kidney injury) ICD Code: N17.9 - NEREYDA (acute kidney injury) Status: Acute (4) Acute respiratory failure ICD Code: J96.00 - Acute respiratory failure, unspecified whether with hypoxia or hypercapnia Assessment and Plan 81 y/o male with a history of DM, COPD on home o2 2L,enlarged prostate, Afib, anxiety, depression, CHF and HTN presented to the ED with complaints of sob and low hemoglobin. Symptomatic anemia, Hgb 6.4, baseline 8-10, mildly positive occult stool, chronic MARYAM -patient is currently being transfused with packed red blood cells. He is currently on his first unit. Will need a posttransfusion H&H. No signs of active bleeding. -Inspector Chief Dr. Garcia was consulted. Pending consult. -GI consulted to pending recommendations. -Continue to monitor clinically and trend H&H. Acute respiratory Failure due to Acute CHF exacerbation on chronic diastolic CHF , BNP 383, Patient with hypoxia 72% on 2L Last Echo shows LVH, EF 55% Chest xray reviewed and shows mild congestive heart failure ABG reviewed and shows PH 7.33, PCO2 58 -Lasix 40 mg IV Daily -Clinically in terms of respiration has improved drastically. He is now on nasal cannula. Continue with Lasix. Continue to monitor clinically. -Strict ins and outs. Acute Kidney injury, creatine 2.1, baseline 1.3, -Improving. May be secondary to CHF exacerbation along with anemia. -Avoid nephrotoxins Hyperkalemia, potassium 5.3 -Resolved. DM, chronic -Accu checks with SSI -Resume home Levemir HS Chronic anticoagulation with Coumadin -INR 1.6. Coumadin on hold pending GI workup. DVT prophylaxis: SCDs, hold Coumadin for now due to anemia Aruna Dupree MD May 20, 2017 10:07
--- NOTE | 2017-05-20 10:25 | EKG ---
Date Performed: 05/19/2017 Time Performed: 22:57:47 PTAGE: 81 years EKG: ELECTRONIC VENTRICULAR PACEMAKER Compared to prior tracing no significant change PREVIOUS TRACING : 02/13/2017 04.35 DOCTOR: Eric Tijerina Interpretating Date/Time 05/20/2017 10:19:19
[2017-05-20 10:28] LABS: TRANSFERRIN IRON PROFILE 272 MG/DL (200-360)
--- NOTE | 2017-05-20 14:30 | PD.CONS ---
HPI History of Present Illness This is a 81 year old male who presented to the emergency room for evaluation of shortness of breath. He does have a history of COPD and uses home O2, but states he was not able to get enough oxygen, even with his home O2. He was brought to the emergency room and found to have severe anemia with an HH of 6.4/ 21.3, MCV 79.8, MCHC 29.8, Iron 29, TIBC 381, Iron Saturation 7.6%. He has been seen by our service in the past for anemia and was evaluated with EGD/ Colonoscopy (01/26/17)----> 1. There was LA Class A esophagitis noted 2. Diaphragmatic hiatus was present that measured 2 scope diameters 3. A small nodule was located in the gastric antrum; multiple biopsies were performed 4. Normal duodenal mucosa in the bulb and second portion of the duodenum 1. Significant amount of stool was present throughout the entire examined colon 2. There was evidence of a prior ileocolonic surgical anastomosis in the ascending colon 3. A small flat polyp was found in the ascending colon; multiple biopsies of the lesion were performed 4. Retroflexed views revealed no abnormalities 5. Suboptimal bowel prep limited the exam. Pathology revealed reactive gastropathy, as may be seen with bile reflux or drug therapy, focal mild acute and chronic inflammation, a Wilma stain is negative for Helicobacter, ascending colon tubular adenoma. It was recommended that he undergo a repeat colonoscopy in 6 months secondary to poor prep. He reports that he has not seen any obvious blood loss and denies any gastrointestinal symptoms such as weight loss, decreased appetite, nausea, vomiting, heartburn, reflux, abdominal pain, constipation, diarrhea, melena, or hematochezia. Hematology was consulted and they have recommended keeping his hemoglobin around 10, given his ongoing blood loss, repeat GI evaluation and if negative, then a consider bone marrow aspirate and biopsy. Of note, he has atrial fibrillation and takes Coumadin at home. (Saray Wilkinson) PFSH Past Medical History DM COPD on home o2 2L Afib Anxiety Depression Diastolic CHF HTN Sleep apnea Enlarged prostate Chronic anemia Esophagitis Gastric nodule HH Tubular adenoma in colon Past Surgical History Pacemaker/AICD Appendectomy Cholecystectomy Bilateral knee replacement Hernia repair EGD/Colonoscopy (Saray Wilkinson) Coded Allergies: MRI PRECAUTION (Verified Allergy, Severe, 05/19/17) Uncoded Allergies: STEROIDS (Adverse Reaction, Mild, 01/10/17) ELEVATED BLOOD SUGAR Medications Allergies Coded Allergies Type Severity Reaction Last Updated Verified MRI PRECAUTION Allergy Severe 05/19/17 Yes Uncoded Allergies Type Severity Reaction Last Updated Verified STEROIDS Adverse Reaction Mild 01/10/17 Active Scripts Medications Dose Route/Sig Max Daily Dose Days Date Category Dose Instructions Lantus Inj (Insulin Glargine) 1,000 Unit/10 Ml Vial 10 Units SQ HS 04/09/17 Reported Warfarin 5 Mg Tab 5 Mg PO DAILYHS 03/02/17 Reported Trazodone (Trazodone HCl) 50 Mg Tab 50 Mg PO HS 03/02/17 Reported Potassium Chloride ER (Potassium Chloride) 20 Meq Tab 20 Meq PO DAILY 03/02/17 Reported Gabapentin 300 Mg Cap 300 Mg PO TID 03/02/17 Reported Feosol (Ferrous Sulfate) 200 Mg Tab 200 Mg PO BIDPC 02/15/17 Rx Vitamin D3 (Cholecalciferol) 2,000 Unit Cap 2,000 Units PO DAILY 02/15/17 Rx Oxygen tank (Oxygen) 1 Ea Tank 2 Liter JAKE.CANULA CONTINUOUS 01/11/17 Rx Oxygen Concentrator Portable Gaseous 2 L/min via Nasal Cannula Continuous For 99 months Amitriptyline (Amitriptyline HCl) 25 Mg Tab 25 Mg PO HS 01/11/17 Rx Digoxin 0.125 Mg Tab 0.125 Mg PO DAILY 01/11/17 Rx Cormax Scalp Topical (Clobetasol Propionate) 0.05% Soln 1 Applic TOPICAL BID 01/07/17 Reported Hydrocodone-Acetaminophen 5-325 mg Tab 2 Tab PO Q6H PRN 11/29/16 Reported Vitamin B12 (Cyanocobalamin) 100 Mcg Tab 100 Mcg PO DAILY 11/29/16 Reported Lorazepam 2 Mg Tab 2 Mg PO Q6H PRN 08/16/16 Reported Flonase Nasal Freedom (Fluticasone Nasal Freedom) 50 Mcg/Act Freedom 100 Mcg EACH NARE BID 08/16/16 Reported Acarbose 100 Mg Tab 100 Mg PO TID 08/16/16 Reported Take with first bite of meal. Omeprazole 40 Mg Cap 40 Mg PO BID 08/16/16 Reported Atorvastatin (Atorvastatin Calcium) 40 Mg Tab 40 Mg PO DAILY 08/16/16 Reported Torsemide 20 Mg Tab 40 Mg PO BID 08/16/16 Reported Lisinopril 20 Mg Tab 20 Mg PO DAILY 08/16/16 Reported Bystolic (Nebivolol) 10 Mg Tab 10 Mg PO BID 08/16/16 Reported Finasteride 5 Mg Tab 5 Mg PO HS 08/16/16 Reported Do not crush. Family History Family history significant for cancer. Social History Tobacco use: Denies, quit 2011 Alcohol use: Denies Illicit drug use: Denies (WilkinsonSaray) Review of Systems Constitutional: COMPLAINS OF: Fatigue, DENIES: Fever, Chills Respiratory: COMPLAINS OF: Shortness of breath Cardiovascular: COMPLAINS OF: Lower Extremity Edema, DENIES: Chest pain Gastrointestinal: DENIES: Abdominal pain, Black stools, Bloody stools, Constipation, Diarrhea, Nausea, Vomiting, Swelling of Abdomen, Heartburn, Hematemesis Musculoskeletal: COMPLAINS OF: Stiffness Hematologic/lymphatic: DENIES: Bruising Psychiatric: COMPLAINS OF: Anxiety, DENIES: Confusion (WilkinsonSaray) GI Exam Vitals I&O Vital Signs Date Time Temp Pulse Resp B/P (MAP) Pulse Ox O2 Delivery O2 Flow Rate FiO2 05/20/17 11:15 97.5 83 16 122/57 82 05/20/17 11:09 97.4 70 18 127/66 (86) 97 05/20/17 11:02 97.4 70 16 127/66 97 05/20/17 08:41 97.4 71 18 127/66 (86) 100 05/20/17 08:12 99 Nasal Cannula 4.00 05/20/17 07:43 100 BiPAP 35 05/20/17 07:40 100 35 05/20/17 07:00 69 05/20/17 06:20 96.9 73 20 124/66 100 05/20/17 06:15 96.9 70 20 118/75 97 05/20/17 06:10 97.0 70 20 115/57 97 05/20/17 06:10 97.0 70 20 115/57 97 05/20/17 06:05 96.7 70 20 123/68 69 05/20/17 06:00 97.1 70 122/72 98 05/20/17 06:00 68 05/20/17 05:55 97.0 70 20 122/65 100 05/20/17 05:50 96.9 71 20 136/73 99 05/20/17 05:45 97.0 70 20 104/63 95 05/20/17 05:41 97.0 71 22 117/68 98 05/20/17 05:35 97.0 70 16 121/63 100 05/20/17 05:30 97.0 69 16 116/63 100 05/20/17 05:25 119/58 05/20/17 05:20 96.9 71 16 110/70 99 05/20/17 05:15 97.0 70 16 115/46 100 05/20/17 05:10 97.0 69 20 113/60 98 05/20/17 05:05 96.9 70 20 117/64 99 05/20/17 05:00 97.0 70 20 120/63 97 05/20/17 05:00 70 05/20/17 04:55 97.0 67 20 123/66 100 05/20/17 04:50 96.7 70 16 103/70 96 05/20/17 04:46 97.0 70 20 138/68 98 05/20/17 04:30 97.0 70 22 103/52 (69) 93 05/20/17 04:27 97.0 70 22 120/64 94 05/20/17 04:00 68 05/20/17 03:25 98 35 05/20/17 03:10 05/20/17 01:32 70 16 116/59 (78) 100 BiPAP 05/20/17 01:25 97 35 05/19/17 22:58 Venturi Mask 6.00 50 05/19/17 22:47 100 Non-Rebreather 15.00 05/19/17 22:44 71 18 127/61 (83) 69 I/O 05/19/17 05/19/17 05/19/17 05/20/17 05/20/17 05/20/17 07:00 15:00 23:00 07:00 15:00 23:00 Intake Total 10 ml 315 ml Output Total 1000 ml Balance -990 ml 315 ml Intake Packed Cells 250 ml Blood Product IV Normal Saline Flush 10 ml 65 ml Output Urine Total 1000 ml Imaging Last Impressions Chest X-Ray 05/19/17 0401 Signed Impressions: Service Date/Time: April 22:54 - CONCLUSION: 1. Mild congestive heart failure. Findings similar to February 13. Kamaljit Natarajan MD Laboratory Test 05/19/17 22:50 05/19/17 22:58 05/20/17 07:24 White Blood Count 4.1 TH/MM3 3.2 TH/MM3 Red Blood Count 2.67 MIL/MM3 2.77 MIL/MM3 Hemoglobin 6.4 GM/DL 6.6 GM/DL Hematocrit 21.3 % 22.1 % Mean Corpuscular Volume 79.8 FL 79.5 FL Mean Corpuscular Hemoglobin 23.8 PG 23.9 PG Mean Corpuscular Hemoglobin Concent 29.8 % 30.0 % Red Cell Distribution Width 22.0 % 21.5 % Platelet Count 205 TH/MM3 184 TH/MM3 Mean Platelet Volume 8.4 FL 8.1 FL Neutrophils (%) (Auto) 72.3 % 70.8 % Lymphocytes (%) (Auto) 11.5 % 12.1 % Monocytes (%) (Auto) 10.2 % 11.2 % Eosinophils (%) (Auto) 3.6 % 3.6 % Basophils (%) (Auto) 2.4 % 2.3 % Neutrophils # (Auto) 3.0 TH/MM3 2.3 TH/MM3 Lymphocytes # (Auto) 0.5 TH/MM3 0.4 TH/MM3 Monocytes # (Auto) 0.4 TH/MM3 0.4 TH/MM3 Eosinophils # (Auto) 0.1 TH/MM3 0.1 TH/MM3 Basophils # (Auto) 0.1 TH/MM3 0.1 TH/MM3 CBC Comment AUTO DIFF AUTO DIFF Differential Total Cells Counted 100 Neutrophils % (Manual) 85 % Lymphocytes % 5 % Monocytes % 5 % Eosinophils % 2 % Basophils % 3 % Neutrophils # (Manual) 3.5 TH/MM3 Nucleated Red Blood Cells 1 /100 WBC Differential Comment FINAL DIFF MANUAL AUTO DIFF CONFIRMED Platelet Estimate NORMAL Platelet Morphology Comment NORMAL Polychromasia 2.6 % Ovalocytes 1+ 2+ Acanthocytes OCC Keratocytes OCC Prothrombin Time 18.6 SEC Prothromb Time International Ratio 1.6 RATIO Activated Partial Thromboplast Time 30.2 SEC Blood Urea Nitrogen 49 MG/DL 50 MG/DL Creatinine 2.15 MG/DL 1.94 MG/DL Random Glucose 217 MG/DL 187 MG/DL Total Protein 6.6 GM/DL Albumin 3.2 GM/DL Calcium Level 8.4 MG/DL 8.4 MG/DL Alkaline Phosphatase 50 U/L Aspartate Amino Transf (AST/SGOT) 8 U/L Alanine Aminotransferase (ALT/SGPT) 9 U/L Total Bilirubin 0.5 MG/DL Sodium Level 139 MEQ/L 139 MEQ/L Potassium Level 5.3 MEQ/L 4.8 MEQ/L Chloride Level 100 MEQ/L 100 MEQ/L Carbon Dioxide Level 31.9 MEQ/L 36.9 MEQ/L Anion Gap 7 MEQ/L 2 MEQ/L Estimat Glomerular Filtration Rate 30 ML/MIN 33 ML/MIN Total Creatine Kinase 39 U/L Troponin I 0.03 NG/ML B-Type Natriuretic Peptide 383 PG/ML Lipase 155 U/L Thyroid Stimulating Hormone 3rd Gen 4.740 uIU/ML Digoxin Level 0.8 NG/ML Blood Gas Puncture Site RT RADIAL Blood Gas Patient Temperature 98.6 Blood Gas HCO3 30 mmol/L Blood Gas Base Excess 4.1 mmol/L Blood Gas Oxygen Saturation 92 % Arterial Blood pH 7.33 Arterial Blood Partial Pressure CO2 59 mmHg Arterial Blood Partial Pressure O2 78 mmHG Arterial Blood Oxygen Content 8.2 Vol % Arterial Blood Carboxyhemoglobin 2.1 % Arterial Blood Methemoglobin 0.8 % Blood Gas Hemoglobin 6.2 G/DL Oxygen Delivery Device Venti Mask Blood Gas Liter Flow 6 L/M Blood Gas Inspired Oxygen 50 % Tear Drop Cells 1+ Iron Level 29 MCG/DL Total Iron Binding Capacity 381 MCG/DL Percent Iron Saturation 7.6 % Physical Examination HEENT: Normocephalic; atraumatic; no jaundice. CHEST: Resp even/unlabored, diminished CARDIAC: Irregular ABDOMEN: Soft, nondistended, nontender; no hepatosplenomegaly; bowel sounds are present in all four quadrants. 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 (Saray Wilkinson) Assessment and Plan Plan ASSESSMENT: - Acute on chronic anemia. HH on admission 6.4/21.3, MCV 79.8, MCHC 29.8, Iron 29, TIBC 381, Iron Saturation 7.6%. EGD/Colonoscopy (01/26/17)----> 1. There was LA Class A esophagitis noted 2. Diaphragmatic hiatus was present that measured 2 scope diameters 3. A small nodule was located in the gastric antrum; multiple biopsies were performed 4. Normal duodenal mucosa in the bulb and second portion of the duodenum 1. Significant amount of stool was present throughout the entire examined colon 2. There was evidence of a prior ileocolonic surgical anastomosis in the ascending colon 3. A small flat polyp was found in the ascending colon; multiple biopsies of the lesion were performed 4. Retroflexed views revealed no abnormalities 5. Suboptimal bowel prep limited the exam. Pathology revealed reactive gastropathy, as may be seen with bile reflux or drug therapy, focal mild acute and chronic inflammation, a Wilma stain is negative for Helicobacter, ascending colon tubular adenoma. Rpt. colonoscopy in 6 months secondary to poor prep. He is not having any GI symptoms. He does take coumadin for atrial fibrillation. Hematology following---> recommend keeping his hgb around 10 because of his ongoing blood loss, repeat GI evaluation and if negative, then a consider bone marrow aspirate and biopsy. S/P 2 units PRBC. - CHF exacerbation, Atrial fibrillation. - COPD, DM, NEREYDA per attending. PLAN: - Heart healthy diet - Hemoccult stool x 3 - Protonix 40mg po daily - Monitor HH - Transfuse as necessary - Hematology following. - Pt had egd and colonoscopy (poor prep) in January of 2017. D/W patient repeating colonoscopy, as this was not a good prep, but he is very hesitant and would like to have capsule endoscopy instead. He very well may benefit from this, but given the fact that his colonoscopy was a poor prep, we would recommend repeating this first. Of note, patient also has PPM. Pt will speak to Dr. Thomas regarding this, as he is his regular GI physician. If he insists on not repeating colonoscopy, consider SBFT. (Saray Wilkinson) Plan Patient was seen and examined, agree with above-noted, patient does not want to have any procedure except capsule endoscopy as an outpatient, he stated that he was told by his placement manager that he might have procedures that may compromise heart condition especially with his age We will continue current care, we will transfuse as needed we'll do the capsule endoscopy as an outpatient (Kell Thomas MD) Saray Wilkinson May 20, 2017 14:30 Kell Thomas MD May 20, 2017 17:39
[2017-05-20] MEDS: PANTOPRAZOLE SOD 40 MG DELAYED RELEASE TAB PO SCH (16:13)
[2017-05-20] MEDS: LORazepam 2 MG TAB PO PRN ×2 (16:13→22:41)
[2017-05-20] MEDS: ACETAMINOPHEN 500 MG CPLT PO PRN (17:23)
[2017-05-20] MEDS: [UNRECOGNIZED DRUG - OTHER] TOPICAL SCH (21:00)
[2017-05-20] MEDS: AMITRIPTYLINE HCL 25 MG TAB PO SCH (21:00)
[2017-05-20] MEDS: traZODone HCL 50 MG TAB PO SCH (21:03)
[2017-05-20] MEDS: FLUTICASONE PROPIONATE 50 MCG/ACT 16 GM NASAL SPRAY NASAL SCH (21:03)
[2017-05-20] MEDS: FINASTERIDE 5 MG TAB PO SCH (21:03)
[2017-05-20] MEDS: INSULIN DETEMIR 100 UNITS/ML VIAL SQ SCH (21:27)
[2017-05-21] VITALS (32 sets, daily range): BP systolic 123–139; BP diastolic 62–75; PULSE 68–116; RESP 18–20; TEMP 98.1–98.7; O2SAT 91–98
[2017-05-21] MEDS: ACETAMINOPHEN/HYDROcodone 325 MG/5 MG TAB PO PRN ×2 (03:19→20:06)
[2017-05-21 06:14] LABS: AUTOMATED NEUTROPHIL # 4.5 TH/MM3 (1.8-7.7); BASOPHIL # 0.1 TH/MM3 (0-0.2); BASOPHIL % 1.4 % (0.0-2.0); EOSINOPHIL # 0.1 TH/MM3 (0-0.4); EOSINOPHIL % 2.6 % (0.0-4.0); HEMATOCRIT 26.8 % (39.0-51.0); HEMO FLAGS DIFF FINAL; LYMPH % 7.2 % (9.0-44.0); LYMPHOCYTE # 0.4 TH/MM3 (1.0-4.8); MEAN CELL VOLUME 80.4 FL (80.0-100.0); MEAN CORPUSCULAR HEMOGLOBIN 24.5 PG (27.0-34.0); MEAN CORPUSCULAR HGB CONC 30.5 % (32.0-36.0); MONO % 7.7 % (0.0-8.0); NEUT % 81.1 % (16.0-70.0); PLATELET COUNT 192 TH/MM3 (150-450); RED BLOOD COUNT 3.33 MIL/MM3 (4.50-5.90); RED CELL DISTRIBUTION WIDTH 21.2 % (11.6-17.2); RETIC % 3.1 % (0.4-3.0); REVIEW FLAG FINAL; WHITE BLOOD COUNT 5.6 TH/MM3 (4.0-11.0)
[2017-05-21] MEDS: CHOLECALCIFEROL (VIT D3) 1000 UNIT TAB PO SCH (08:12)
[2017-05-21] MEDS: DIGOXIN 0.125 MG TAB PO SCH (08:12)
[2017-05-21] MEDS: PANTOPRAZOLE SOD 40 MG DELAYED RELEASE TAB PO SCH (08:12)
[2017-05-21] MEDS: NEBIVOLOL 10 MG TAB PO SCH ×2 (08:12→20:08)
[2017-05-21] MEDS: FERROUS SULFATE 300 MG /5ML UDC PO SCH ×2 (08:13→17:01)
[2017-05-21] MEDS: FUROSEMIDE 40 MG/4 ML VIAL IV PUSH SCH (08:13)
[2017-05-21] MEDS: ATORVASTATIN 40 MG TAB PO SCH (08:14)
[2017-05-21] MEDS: FLUTICASONE PROPIONATE 50 MCG/ACT 16 GM NASAL SPRAY NASAL SCH ×2 (08:14→20:09)
[2017-05-21] MEDS: SODIUM CHLORIDE 0.9% FLUSH 10 ML FLUSH IV FLUSH SCH ×2 (08:15→20:08)
[2017-05-21] MEDS: [UNRECOGNIZED DRUG - OTHER] TOPICAL SCH ×2 (08:16→20:10)
[2017-05-21] MEDS: INSULIN ASPART SUPPLEMENTAL SCALE SQ SCH ×4 (08:17→20:07)
[2017-05-21 08:57] LABS: BICARBONATE 30.2 MEQ/L (21.0-32.0); POTASSIUM 4.6 MEQ/L (3.5-5.1)
[2017-05-21] MEDS ORDERED: FUROSEMIDE 20 MG/2 ML VIAL IV PUSH ONE (09:00)
[2017-05-21] MEDS ORDERED: SODIUM CHLOR 0.9% 250 ML INJ 250 ML IV ONE (09:00)
--- NOTE | 2017-05-21 09:49 | PD.ONC.PN ---
Subjective Subjective Remarks Afebrile overnight. Patient resting in nad. No complaints. at bedside. Objective Data Date Time Temp Pulse Resp B/P (MAP) Pulse Ox O2 Delivery O2 Flow Rate FiO2 05/21/17 06:00 69 05/21/17 05:00 70 05/21/17 04:00 69 05/21/17 04:00 Nasal Cannula 4.00 05/21/17 04:00 98.2 69 20 134/62 (86) 96 05/21/17 03:00 70 05/21/17 02:00 70 05/21/17 01:00 70 05/21/17 00:00 Nasal Cannula 4.00 05/21/17 00:00 98.1 72 18 131/75 (93) 96 05/21/17 00:00 72 05/20/17 23:00 69 05/20/17 22:00 70 05/20/17 21:00 69 05/20/17 20:00 97.9 69 20 148/73 (98) 97 05/20/17 20:00 Nasal Cannula 4.00 05/20/17 20:00 69 05/20/17 18:27 69 05/20/17 17:45 69 05/20/17 16:33 70 05/20/17 15:40 97.3 70 18 133/69 (90) 97 05/20/17 15:30 97.5 70 16 150/70 100 05/20/17 15:14 74 05/20/17 14:13 69 05/20/17 13:00 68 05/20/17 12:00 72 05/20/17 11:15 97.5 83 16 122/57 82 05/20/17 11:09 97.4 70 18 127/66 (86) 97 05/20/17 11:02 97.4 70 16 127/66 97 05/20/17 11:00 69 05/20/17 10:00 70 05/21/17 05/21/17 05/21/17 07:00 15:00 23:00 Intake Total 480 ml Output Total 700 ml Balance -220 ml Result Diagram: 05/21/17 0535 05/21/17 0535 Laboratory Results Laboratory Tests Test 05/21/17 05:35 White Blood Count 5.6 TH/MM3 Red Blood Count 3.33 MIL/MM3 Hemoglobin 8.2 GM/DL Hematocrit 26.8 % Mean Corpuscular Volume 80.4 FL Mean Corpuscular Hemoglobin 24.5 PG Mean Corpuscular Hemoglobin Concent 30.5 % Red Cell Distribution Width 21.2 % Platelet Count 192 TH/MM3 Mean Platelet Volume 8.7 FL Neutrophils (%) (Auto) 81.1 % Lymphocytes (%) (Auto) 7.2 % Monocytes (%) (Auto) 7.7 % Eosinophils (%) (Auto) 2.6 % Basophils (%) (Auto) 1.4 % Neutrophils # (Auto) 4.5 TH/MM3 Lymphocytes # (Auto) 0.4 TH/MM3 Monocytes # (Auto) 0.4 TH/MM3 Eosinophils # (Auto) 0.1 TH/MM3 Basophils # (Auto) 0.1 TH/MM3 CBC Comment DIFF FINAL Differential Comment Reticulocyte Count 3.1 % Absolute Reticulocyte Count 103.9 MIL/L Blood Urea Nitrogen 44 MG/DL Creatinine 1.36 MG/DL Random Glucose 200 MG/DL Calcium Level 8.9 MG/DL Sodium Level 141 MEQ/L Potassium Level 4.6 MEQ/L Chloride Level 102 MEQ/L Carbon Dioxide Level 30.2 MEQ/L Anion Gap 9 MEQ/L Estimat Glomerular Filtration Rate 50 ML/MIN Ferritin 25 NG/ML Administered Medications Medications (Trade) Dose Ordered Sig/Faviola Route PRN Reason Start Time Stop Time Status Last Admin Dose Admin Sodium Chloride (NS Flush) 2 ml BID IV FLUSH 05/20/17 09:00 05/21/17 08:15 Furosemide (Lasix Inj) 40 mg DAILY IV PUSH 05/20/17 09:00 05/21/17 08:13 Insulin Aspart (NovoLOG SUPPLEMENTAL SCALE) 1 ACHS SLIDING SCALE SQ 05/20/17 08:00 05/21/17 08:17 Atorvastatin Calcium (Lipitor) 40 mg DAILY PO 05/20/17 09:00 05/21/17 08:14 Digoxin (Lanoxin) 0.125 mg DAILY PO 05/20/17 09:00 05/21/17 08:12 Ferrous Sulfate (Ferrous Sulfate Liq) 200 mg BIDPC PO 05/20/17 09:00 05/21/17 08:13 Finasteride (Proscar) 5 mg HS PO 05/20/17 21:00 05/20/17 21:03 Insulin Detemir (Levemir Inj) 10 units HS SQ 05/20/17 21:00 05/20/17 21:27 Nebivolol (Bystolic) 10 mg BID PO 05/20/17 09:00 05/21/17 08:12 Trazodone HCl (Desyrel) 50 mg HS PO 05/20/17 21:00 05/20/17 21:03 Lorazepam (Ativan) 2 mg Q6H PRN PO ANXIETY 05/20/17 14:15 05/20/17 22:41 Cholecalciferol (Vitamin D3) 2,000 units DAILY PO 05/21/17 09:00 05/21/17 08:12 Acetaminophen/ Hydrocodone Bitart ([place] 5-325 Mg) 2 tab Q6H PRN PO PAIN 1-10 05/20/17 14:15 05/21/17 03:19 Fluticasone Propionate (Flonase Osvaldo Spr) 1 spray BID NASAL 05/20/17 21:00 05/21/17 08:14 Pantoprazole Sodium (Protonix) 40 mg DAILY PO 05/20/17 15:15 05/21/17 08:12 Acetaminophen (Tylenol) 500 mg Q6H PRN PO headache 05/20/17 17:00 05/20/17 17:23 Objective Remarks GENERAL: Elderly male, supine in bed in nad. SKIN: Warm and dry. HEAD: Normocephalic. EYES: No scleral icterus. No injection or drainage. NECK: Supple, trachea midline. CARDIOVASCULAR: +S1/S2 RESPIRATORY: anterior bullock with occasional rhonchi. on 3L O2 via NC GASTROINTESTINAL: Abdomen soft, non-tender, nondistended. EXTREMITIES: No cyanosis, or edema. MUSCULOSKELETAL: Adequate muscle tone. NEUROLOGICAL: No obvious focal deficit. Awake, alert, and oriented x3. Assessment/Plan Problem List: (1) Iron deficiency anemia ICD Codes: D50.9 - Iron deficiency anemia, unspecified Plan: --anemia dating back to Jan 07 2017. --01/26/2017, colonoscopy (w/poor prep)--> No bleeding site was identified. upper endoscopy showed reactive gastropathy and focal mild and acute inflammation. --s/p IV iron, 1625 mg on 03/30/2017. --GI following and patient hesitant to have repeat colonoscopy. Assessment 81y/o male with iron deficiency anemia. h/o Recurrent anemia, presumed to be due to GI bleeding without a source identified. COPD. Atrial fibrillation. BPH. Congestive heart failure. Diabetes. Elevated cholesterol. Hypertension. Sleep apnea with CPAP. Plan 1. agree with 1 unit pRBC ordered by hospitalist 2. will need additional IV iron. This could be given on outpatient basis 3. GIB evaluation per GI. Attending Statement The exam, history, and the medical decision-making described in the above note were completed with the assistance of the mid-level provider. I reviewed and agree with the findings presented. I attest that I had a [id number] encounter with the patient on the same day, and personally performed and documented my assessment and findings in the medical record. second unit if pRBC today has iron deficiency GI seeing had EGD/colonoscopy o/p in january with poor prep outpatient capsule colonoscopy per GI Heme-occult pending Transfuse to Hb of 10 Will give 1 treatment of iron tomorrow d/w rn overnight events reviewed Lelia Bernabe May 21, 2017 09:49 Ky Lopez MD May 21, 2017 11:36
[2017-05-21] MEDS ORDERED: INFLUENZA VIRUS VACCINE (QUADRIVALENT) 0.5 ML SYR IM ONE (10:00)
[2017-05-21] MEDS ORDERED: PNEUMOCOCCAL POLYVALENT INJ 25 MCG/0.5 ML SYR IM ONE (10:00)
--- NOTE | 2017-05-21 11:19 | HHI.PR ---
Subjective Remarks Follow-up for anemia Patient denied any bleeding. He denies any chest pain, palpitation, shortness of breathing, lightheadedness/ dizziness. His nurse is at the bedside during the interview. Objective Vitals Vital Signs Date Time Temp Pulse Resp B/P (MAP) Pulse Ox O2 Delivery O2 Flow Rate FiO2 05/21/17 11:04 98.4 72 18 135/72 98 05/21/17 10:55 98 Nasal Cannula 3.00 05/21/17 10:00 96 05/21/17 09:00 72 05/21/17 08:00 72 05/21/17 07:30 98.6 70 20 136/71 (92) 05/21/17 07:30 98 Nasal Cannula 4.00 05/21/17 07:30 80 05/21/17 06:00 69 05/21/17 05:00 70 05/21/17 04:00 69 05/21/17 04:00 Nasal Cannula 4.00 05/21/17 04:00 98.2 69 20 134/62 (86) 96 05/21/17 03:00 70 05/21/17 02:00 70 05/21/17 01:00 70 05/21/17 00:00 Nasal Cannula 4.00 05/21/17 00:00 98.1 72 18 131/75 (93) 96 05/21/17 00:00 72 05/20/17 23:00 69 05/20/17 22:00 70 05/20/17 21:00 69 05/20/17 20:00 97.9 69 20 148/73 (98) 97 05/20/17 20:00 Nasal Cannula 4.00 05/20/17 20:00 69 05/20/17 18:27 69 05/20/17 17:45 69 05/20/17 16:33 70 05/20/17 15:40 97.3 70 18 133/69 (90) 97 05/20/17 15:30 97.5 70 16 150/70 100 05/20/17 15:14 74 05/20/17 14:13 69 05/20/17 13:00 68 05/20/17 12:00 72 I/O 05/20/17 05/20/17 05/20/17 05/21/17 05/21/17 05/21/17 07:00 15:00 23:00 07:00 15:00 23:00 Intake Total 10 ml 315 ml 1606 ml 480 ml Output Total 1000 ml 800 ml 700 ml Balance -990 ml 315 ml 806 ml -220 ml Intake Oral 1280 ml 480 ml Packed Cells 250 ml 300 ml Blood Product IV Normal Saline Flush 10 ml 65 ml 26 ml Output Urine Total 1000 ml 800 ml 700 ml Stool Total 0 ml 0 ml # Bowel Movements 0 Result Diagram: 05/21/1753405/21/17534 Objective Remarks GENERAL: in NAD CARDIOVASCULAR: Regular rate and rhythm without murmurs, gallops, or rubs. RESPIRATORY: Bilateral crackles. Otherwise no rhonchi or wheezing. No accessory muscle use. GASTROINTESTINAL: Abdomen soft, non-tender, nondistended. MUSCULOSKELETAL: No cyanosis, or edema. BACK: Nontender without obvious deformity. No CVA tenderness. Medications and IVs Current Medications Sodium Chloride (NS Flush) 2 ml UNSCH PRN IV FLUSH FLUSH AFTER USING IV ACCESS ; Start 05/20/17 at 01:15 Sodium Chloride (NS Flush) 2 ml BID IV FLUSH Last administered on 05/21/17 08: 15; Start 05/20/17 at 09:00 Naloxone HCl (Narcan Inj) 0.4 mg UNSCH PRN IV PUSH SEE LABEL COMMENTS; Start at 01:15 Sodium Chloride 250 ml @ 15 mls/hr ONCE ONCE IV Last administered on 11:04; Start 05/20/17 at 01:15; Stop 05/20/17 at 17:54; Status DC Furosemide (Lasix Inj) 40 mg ONCE ONCE IV PUSH Last administered on 05/20/17 01:51; Start 05/20/17 at 01:15; Stop 05/20/17 at 01:19; Status DC Furosemide (Lasix Inj) 40 mg DAILY IV PUSH Last administered on 05/21/17 08:13 ; Start 05/20/17 at 09:00 Furosemide (Lasix Inj) 20 mg ONCE PRN IV PUSH after EACH Unit of PRBC Last administered on 05/20/17 10:26; Start 05/20/17 at 01:15; Stop 05/20/17 at 21:00 ; Status DC Dextrose (D50w (Vial) Inj) 50 ml UNSCH PRN IV PUSH HYPOGLYCEMIA-SEE COMMENTS; Start 05/20/17 at 03:00 Glucagon (Glucagon Inj) 1 mg UNSCH PRN OTHER HYPOGLYCEMIA-SEE COMMENTS; Start 05/20/17 at 03:00 Insulin Aspart (NovoLOG SUPPLEMENTAL SCALE) 1 ACHS SLIDING SCALE SQ Last administered on 05/21/17 08:17; Start 05/20/17 at 08:00 Amitriptyline HCl (Elavil) 25 mg HS PO ; Start 05/20/17 at 21:00 Atorvastatin Calcium (Lipitor) 40 mg DAILY PO Last administered on 05/21/17 08 :14; Start 05/20/17 at 09:00 Digoxin (Lanoxin) 0.125 mg DAILY PO Last administered on 05/21/17 08:12; Start 05/20/17 at 09:00 Ferrous Sulfate (Ferrous Sulfate Liq) 200 mg BIDPC PO Last administered on 05/21 08:13; Start 05/20/17 at 09:00 Finasteride (Proscar) 5 mg HS PO Last administered on 05/20/17 21:03; Start at 21:00 Insulin Detemir (Levemir Inj) 10 units HS SQ Last administered on 05/20/17 21: 27; Start 05/20/17 at 21:00 Nebivolol (Bystolic) 10 mg BID PO Last administered on 05/21/17 08:12; Start 05/20/17 at 09:00 Trazodone HCl (Desyrel) 50 mg HS PO Last administered on 05/20/17 21:03; Start 05/20/17 at 21:00 Lorazepam (Ativan) 2 mg Q6H PRN PO ANXIETY Last administered on 05/20/17 22:41 ; Start 05/20/17 at 14:15 Cholecalciferol (Vitamin D3) 2,000 units DAILY PO Last administered on 08:12; Start 05/21/17 at 09:00 Cyanocobalamin (Vitamin B12) 100 mcg DAILY PO ; Start 05/21/17 at 09:00 Acetaminophen/ Hydrocodone Bitart ([place] 5-325 Mg) 2 tab Q6H PRN PO PAIN 1-10 Last administered on 05/21/17 03:19; Start 05/20/17 at 14:15 Patient Own Medication PT OWN MED: COR... BID TOPICAL ; Start 05/20/17 at 21:00 Fluticasone Propionate (Flonase Osvaldo Spr) 1 spray BID NASAL Last administered on 05/21/17 08:14; Start 05/20/17 at 21:00 Pantoprazole Sodium (Protonix) 40 mg DAILY PO Last administered on 05/21/17 08 :12; Start 05/20/17 at 15:15 Acetaminophen (Tylenol) 500 mg Q6H PRN PO headache Last administered on 17:23; Start 05/20/17 at 17:00 Pneumococcal Polyvalent Vaccine (Pneumovax-23 Inj) 25 mcg ONCE ONCE IM ; Start 05/21/17 at 10:00; Stop 05/21/17 at 10:01; Status DC Influenza Virus Vaccine (Flu (Quadrivalent) Vaccine Inj) 0.5 ml ONCE ONCE IM ; Start 05/21/17 at 10:00; Stop 05/21/17 at 10:01; Status DC Sodium Chloride 250 ml @ 15 mls/hr ONCE ONCE IV ; Start 05/21/17 at 09:00; Stop 05/22/17 at 01:39 Furosemide (Lasix Inj) 20 mg ONCE ONCE IV PUSH ; Start 05/21/17 at 09:00; Stop 05/21/17 at 09:04; Status DC A/P Problem List: (1) CHF exacerbation ICD Code: I50.9 - Heart failure, unspecified (2) Symptomatic anemia ICD Code: D64.9 - Anemia, unspecified Status: Acute (3) NEREYDA (acute kidney injury) ICD Code: N17.9 - NEREYDA (acute kidney injury) Status: Acute (4) Acute respiratory failure ICD Code: J96.00 - Acute respiratory failure, unspecified whether with hypoxia or hypercapnia Assessment and Plan 81 y/o male with a history of DM, COPD on home o2 2L,enlarged prostate, Afib, anxiety, depression, CHF and HTN presented to the ED with complaints of sob and low hemoglobin. Symptomatic anemia, Hgb 6.4, baseline 8-10, mildly positive occult stool, chronic MARYAM -Status post transfusion with 2 packed red blood cells on 05/20/17 and responded appropriately. Hemoglobin currently 8.2. Per international student counselor: Is to be greater than 10 since active GI bleed. -Will transfuse another unit today and check posttransfusion hemoglobin. Patient started IV iron by international student counselor. -Trend hemoglobin. If stable possible discharge tomorrow. -GI consulted and patient refused colonoscopy. He will get capsule done as outpatient. Acute on chronic respiratory Failure due to Acute CHF exacerbation on chronic diastolic CHF, BNP 383, Patient with hypoxia 72% on 2. Patient is on home oxygen. Last Echo shows LVH, EF 55% Chest xray reviewed and shows mild congestive heart failure ABG reviewed and shows PH 7.33, PCO2 58 -Will switch to oral Lasix. -Strict ins and outs. Monitor creatinine. Supplement with oxygen as needed. Acute Kidney injury, creatine 2.1, baseline 1.3, -Improving. May be secondary to CHF exacerbation along with anemia. -Avoid nephrotoxins Hyperkalemia, potassium 5.3 -Resolved. DM, chronic -Accu checks with SSI -Continue Levemir HS Chronic anticoagulation with Coumadin -INR 1.6 on admission. Coumadin on hold pending GI workup. GI and international student counselor to help determine when anticoagulation can be restarted. DVT prophylaxis: SCDs, hold Coumadin for now due to anemia and possible active GI bleed. Aruna Dupree MD May 21, 2017 11:19
--- NOTE | 2017-05-21 11:36 | HHI.GIFU ---
Subjective Remarks Followup for anemia. No active bleeding noted. (Kristen Vuong) Objective Vitals I&O Vital Signs Date Time Temp Pulse Resp B/P (MAP) Pulse Ox O2 Delivery O2 Flow Rate FiO2 05/21/17 11:21 98.2 71 18 123/62 94 05/21/17 11:04 98.4 72 18 135/72 98 05/21/17 10:55 98 Nasal Cannula 3.00 05/21/17 10:00 96 05/21/17 09:00 72 05/21/17 08:00 72 05/21/17 07:30 98.6 70 20 136/71 (92) 05/21/17 07:30 98 Nasal Cannula 4.00 05/21/17 07:30 80 05/21/17 06:00 69 05/21/17 05:00 70 05/21/17 04:00 69 05/21/17 04:00 Nasal Cannula 4.00 05/21/17 04:00 98.2 69 20 134/62 (86) 96 05/21/17 03:00 70 05/21/17 02:00 70 05/21/17 01:00 70 05/21/17 00:00 Nasal Cannula 4.00 05/21/17 00:00 98.1 72 18 131/75 (93) 96 05/21/17 00:00 72 05/20/17 23:00 69 05/20/17 22:00 70 05/20/17 21:00 69 05/20/17 20:00 97.9 69 20 148/73 (98) 97 05/20/17 20:00 Nasal Cannula 4.00 05/20/17 20:00 69 05/20/17 18:27 69 05/20/17 17:45 69 05/20/17 16:33 70 05/20/17 15:40 97.3 70 18 133/69 (90) 97 05/20/17 15:30 97.5 70 16 150/70 100 05/20/17 15:14 74 05/20/17 14:13 69 05/20/17 13:00 68 05/20/17 12:00 72 I/O 05/20/17 05/20/17 05/20/17 05/21/17 05/21/17 05/21/17 07:00 15:00 23:00 07:00 15:00 23:00 Intake Total 10 ml 315 ml 1606 ml 480 ml Output Total 1000 ml 800 ml 700 ml Balance -990 ml 315 ml 806 ml -220 ml Intake Oral 1280 ml 480 ml Packed Cells 250 ml 300 ml Blood Product IV Normal Saline Flush 10 ml 65 ml 26 ml Output Urine Total 1000 ml 800 ml 700 ml Stool Total 0 ml 0 ml # Bowel Movements 0 Laboratory Laboratory Tests Test 05/21/17 05:35 White Blood Count 5.6 Red Blood Count 3.33 Hemoglobin 8.2 Hematocrit 26.8 Mean Corpuscular Volume 80.4 Mean Corpuscular Hemoglobin 24.5 Mean Corpuscular Hemoglobin Concent 30.5 Red Cell Distribution Width 21.2 Platelet Count 192 Mean Platelet Volume 8.7 Neutrophils (%) (Auto) 81.1 Lymphocytes (%) (Auto) 7.2 Monocytes (%) (Auto) 7.7 Eosinophils (%) (Auto) 2.6 Basophils (%) (Auto) 1.4 Neutrophils # (Auto) 4.5 Lymphocytes # (Auto) 0.4 Monocytes # (Auto) 0.4 Eosinophils # (Auto) 0.1 Basophils # (Auto) 0.1 CBC Comment DIFF FINAL Differential Comment Reticulocyte Count 3.1 Absolute Reticulocyte Count 103.9 Blood Urea Nitrogen 44 Creatinine 1.36 Random Glucose 200 Calcium Level 8.9 Sodium Level 141 Potassium Level 4.6 Chloride Level 102 Carbon Dioxide Level 30.2 Anion Gap 9 Estimat Glomerular Filtration Rate 50 Ferritin 25 Imaging Last Impressions Chest X-Ray 05/19/17 2241 Signed Impressions: Service Date/Time: April 22:54 - CONCLUSION: 1. Mild congestive heart failure. Findings similar to February 13. Kamaljit Natarajan MD Physical Exam HEENT: Normocephalic; atraumatic; no jaundice. NECK: Neck is supple CHEST: Crackles heard in bases bilaterally. CARDIAC: RRR with no murmur gallop or rubs. ABDOMEN: Soft, nondistended, nontender; bowel sounds are present EXTREMITIES: No clubbing, cyanosis, or edema. SKIN: Normal; no rash; no jaundice. SFDC DEVELOPER: No focal deficits; alert and oriented x 3. (Kristen Vuong) Assessment and Plan Plan ASSESSMENT: - Acute on chronic anemia. HH on admission 6.4/21.3, MCV 79.8, MCHC 29.8, Iron 29, TIBC 381, Iron Saturation 7.6%. EGD/Colonoscopy (01/26/17)----> 1. There was LA Class A esophagitis noted 2. Diaphragmatic hiatus was present that measured 2 scope diameters 3. A small nodule was located in the gastric antrum; multiple biopsies were performed 4. Normal duodenal mucosa in the bulb and second portion of the duodenum 1. Significant amount of stool was present throughout the entire examined colon 2. There was evidence of a prior ileocolonic surgical anastomosis in the ascending colon 3. A small flat polyp was found in the ascending colon; multiple biopsies of the lesion were performed 4. Retroflexed views revealed no abnormalities 5. Suboptimal bowel prep limited the exam. Pathology revealed reactive gastropathy, as may be seen with bile reflux or drug therapy, focal mild acute and chronic inflammation, a Wilma stain is negative for Helicobacter, ascending colon tubular adenoma. Rpt. colonoscopy in 6 months secondary to poor prep. He is not having any GI symptoms. He does take Coumadin for atrial fibrillation. Hematology following---> recommend keeping his hgb around 10 because of his ongoing blood loss, repeat GI evaluation and if negative, then a consider bone marrow aspirate and biopsy. S/P 2 units PRBC 05/20. - CHF exacerbation, Atrial fibrillation. - COPD, DM, NEREYDA per attending. 05/21/17--NAD. HH 8.2/26.8. Currently getting blood transfusion. Patient is s/p 2 PRBC on 05/20. Per Hematology, hemoglobin to be > 10. Started on IV iron by hematology. Refused colonoscopy, plan for capsule endoscopy as outpatient. PLAN: - Heart healthy diet - Hemoccult stool x 3 pending - Protonix 40mg po daily - Monitor HH - Transfuse as necessary - Notify GI of active bleeding - Hematology following. - Capsule endoscopy as outpatient -Further recommendations to follow based on result of above. Patient seen and examined by Dr. Thomas and myself and this note is written on his behalf. (Kristen Vuong) Plan Patient was seen and examined, feels slightly better after transfusion, hemoglobin is better and stable, patient would like to have the capsule endoscopy as an outpatient. Please let us know if there is active bleeding meanwhile we'll follow up as needed we will see the patient as an outpatient please schedule before he leaves (Kell Thomas MD) Kristen Vuong May 21, 2017 11:36 Kell Thomas MD May 21, 2017 20:40
[2017-05-21] MEDS: GABAPENTIN 100 MG CAP PO SCH ×2 (13:24→17:01)
[2017-05-21] MEDS: CYANOCOBALAMIN 100 MCG TAB PO SCH (13:24)
[2017-05-21] MEDS: LORazepam 2 MG TAB PO PRN ×2 (14:03→20:07)
[2017-05-21] MEDS: INSULIN DETEMIR 100 UNITS/ML VIAL SQ SCH (20:06)
[2017-05-21] MEDS: traZODone HCL 50 MG TAB PO SCH (20:07)
[2017-05-21] MEDS: FINASTERIDE 5 MG TAB PO SCH (20:07)
[2017-05-21] MEDS: AMITRIPTYLINE HCL 25 MG TAB PO SCH (20:07)
[2017-05-21] MEDS: TORSEMIDE 20 MG TAB PO SCH (20:08)
[2017-05-22] VITALS (27 sets, daily range): BP systolic 124–141; BP diastolic 64–73; PULSE 67–76; RESP 18–20; TEMP 97.5–98.2; O2SAT 93–98
[2017-05-22] MEDS: LORazepam 2 MG TAB PO PRN ×3 (03:49→19:48)
[2017-05-22 06:57] LABS: BICARBONATE 37.6 MEQ/L (21.0-32.0); POTASSIUM 4.6 MEQ/L (3.5-5.1)
[2017-05-22 06:58] LABS: HEMATOCRIT 25.8 % (39.0-51.0); MEAN CELL VOLUME 81.2 FL (80.0-100.0); MEAN CORPUSCULAR HEMOGLOBIN 25.3 PG (27.0-34.0); MEAN CORPUSCULAR HGB CONC 31.1 % (32.0-36.0); PLATELET COUNT 156 TH/MM3 (150-450); RED BLOOD COUNT 3.17 MIL/MM3 (4.50-5.90); RED CELL DISTRIBUTION WIDTH 21.3 % (11.6-17.2); REVIEW FLAG FINAL; WHITE BLOOD COUNT 3.9 TH/MM3 (4.0-11.0)
[2017-05-22] MEDS: INSULIN ASPART SUPPLEMENTAL SCALE SQ SCH ×4 (08:00→20:22)
[2017-05-22] MEDS: FLUTICASONE PROPIONATE 50 MCG/ACT 16 GM NASAL SPRAY NASAL SCH ×2 (08:51→19:48)
[2017-05-22] MEDS: FERROUS SULFATE 300 MG /5ML UDC PO SCH ×2 (08:52→18:52)
[2017-05-22] MEDS: CHOLECALCIFEROL (VIT D3) 1000 UNIT TAB PO SCH (08:52)
[2017-05-22] MEDS: CYANOCOBALAMIN 100 MCG TAB PO SCH (08:53)
[2017-05-22] MEDS: GABAPENTIN 100 MG CAP PO SCH ×3 (08:53→18:52)
[2017-05-22] MEDS: NEBIVOLOL 10 MG TAB PO SCH ×2 (08:53→19:48)
[2017-05-22] MEDS: DIGOXIN 0.125 MG TAB PO SCH (08:54)
[2017-05-22] MEDS: TORSEMIDE 20 MG TAB PO SCH ×2 (08:54→19:49)
[2017-05-22] MEDS: ATORVASTATIN 40 MG TAB PO SCH (08:54)
[2017-05-22] MEDS: PANTOPRAZOLE SOD 40 MG DELAYED RELEASE TAB PO SCH (08:55)
[2017-05-22] MEDS ORDERED: IRON SUCROSE INJ 200 MG in SODIUM CHLORIDE 0.9% INJ 100 ML IV ONE (09:00)
[2017-05-22] MEDS: SODIUM CHLORIDE 0.9% FLUSH 10 ML FLUSH IV FLUSH SCH ×2 (09:00→19:49)
[2017-05-22] MEDS: [UNRECOGNIZED DRUG - OTHER] TOPICAL SCH ×2 (09:00→19:50)
--- NOTE | 2017-05-22 09:49 | PD.ONC.PN ---
Subjective Subjective Remarks Afebrile overnight. Tolerated blood transfusion yesterday. No complaints. Resting in room. Objective Data Date Time Temp Pulse Resp B/P (MAP) Pulse Ox O2 Delivery O2 Flow Rate FiO2 05/22/17 08:30 Nasal Cannula 4.00 05/22/17 08:30 97.6 69 18 141/73 (95) 93 05/22/17 06:00 72 05/22/17 05:00 70 05/22/17 04:00 74 05/22/17 04:00 Nasal Cannula 4.00 05/22/17 04:00 98.2 74 18 126/68 (87) 95 05/22/17 03:00 70 05/22/17 02:00 69 05/22/17 01:00 70 05/22/17 00:00 98.1 69 20 124/64 (84) 98 05/22/17 00:00 69 05/22/17 00:00 Nasal Cannula 4.00 05/21/17 23:00 70 05/21/17 22:00 69 05/21/17 21:00 70 05/21/17 20:00 Nasal Cannula 4.00 05/21/17 20:00 98.4 69 20 137/72 (93) 05/21/17 20:00 72 05/21/17 18:01 69 05/21/17 17:22 70 05/21/17 17:12 94 Nasal Cannula 3.00 05/21/17 16:29 116 05/21/17 15:09 98.2 69 20 137/72 (93) 05/21/17 15:09 69 05/21/17 14:48 98.3 69 20 94 05/21/17 14:00 98.5 70 19 137/72 93 05/21/17 14:00 70 05/21/17 13:14 98.7 75 18 135/65 97 05/21/17 13:00 68 05/21/17 12:27 98.5 72 18 139/68 91 05/21/17 12:00 68 05/21/17 11:43 98.2 70 18 128/63 94 05/21/17 11:21 98.2 71 18 123/62 94 05/21/17 11:04 98.4 72 18 135/72 98 05/21/17 11:00 98.5 75 18 135/68 (90) 05/21/17 11:00 75 05/21/17 10:55 98 Nasal Cannula 3.00 05/21/17 10:00 96 05/22/17 05/22/17 05/22/17 07:00 15:00 23:00 Intake Total 480 ml Output Total 800 ml Balance -320 ml Result Diagram: 05/22/17 0624 05/22/17 0624 Laboratory Results Laboratory Tests Test 05/22/17 06:24 White Blood Count 3.9 TH/MM3 Red Blood Count 3.17 MIL/MM3 Hemoglobin 8.0 GM/DL Hematocrit 25.8 % Mean Corpuscular Volume 81.2 FL Mean Corpuscular Hemoglobin 25.3 PG Mean Corpuscular Hemoglobin Concent 31.1 % Red Cell Distribution Width 21.3 % Platelet Count 156 TH/MM3 Mean Platelet Volume 8.6 FL Blood Urea Nitrogen 34 MG/DL Creatinine 1.02 MG/DL Random Glucose 182 MG/DL Calcium Level 8.4 MG/DL Sodium Level 140 MEQ/L Potassium Level 4.6 MEQ/L Chloride Level 100 MEQ/L Carbon Dioxide Level 37.6 MEQ/L Anion Gap 2 MEQ/L Estimat Glomerular Filtration Rate 70 ML/MIN Administered Medications Medications (Trade) Dose Ordered Sig/Faviola Route PRN Reason Start Time Stop Time Status Last Admin Dose Admin Sodium Chloride (NS Flush) 2 ml BID IV FLUSH 05/20/17 09:00 05/21/17 20:08 Insulin Aspart (NovoLOG SUPPLEMENTAL SCALE) 1 ACHS SLIDING SCALE SQ 05/20/17 08:00 05/22/17 08:00 Amitriptyline HCl (Elavil) 25 mg HS PO 05/20/17 21:00 05/21/17 20:07 Atorvastatin Calcium (Lipitor) 40 mg DAILY PO 05/20/17 09:00 05/22/17 08:54 Digoxin (Lanoxin) 0.125 mg DAILY PO 05/20/17 09:00 05/22/17 08:54 Ferrous Sulfate (Ferrous Sulfate Liq) 200 mg BIDPC PO 05/20/17 09:00 05/22/17 08:52 Finasteride (Proscar) 5 mg HS PO 05/20/17 21:00 05/21/17 20:07 Insulin Detemir (Levemir Inj) 10 units HS SQ 05/20/17 21:00 05/21/17 20:06 Nebivolol (Bystolic) 10 mg BID PO 05/20/17 09:00 05/22/17 08:53 Trazodone HCl (Desyrel) 50 mg HS PO 05/20/17 21:00 05/21/17 20:07 Lorazepam (Ativan) 2 mg Q6H PRN PO ANXIETY 05/20/17 14:15 05/22/17 09:01 Cholecalciferol (Vitamin D3) 2,000 units DAILY PO 05/21/17 09:00 05/22/17 08:52 Cyanocobalamin (Vitamin B12) 100 mcg DAILY PO 05/21/17 09:00 05/22/17 08:53 Acetaminophen/ Hydrocodone Bitart ([place] 5-325 Mg) 2 tab Q6H PRN PO PAIN 1-10 05/20/17 14:15 05/21/17 20:06 Fluticasone Propionate (Flonase Osvaldo Spr) 1 spray BID NASAL 05/20/17 21:00 05/22/17 08:51 Pantoprazole Sodium (Protonix) 40 mg DAILY PO 05/20/17 15:15 05/22/17 08:55 Acetaminophen (Tylenol) 500 mg Q6H PRN PO headache 05/20/17 17:00 05/20/17 17:23 Gabapentin (Neurontin) 100 mg TID PO 05/21/17 13:00 05/22/17 08:53 Torsemide (Demadex) 40 mg BID PO 05/21/17 21:00 05/22/17 08:54 Iron Sucrose 200 mg/Sodium Chloride 110 ml @ 110 mls/hr ONCE ONCE IV 05/22/17 09:00 05/22/17 09:59 05/22/17 09:00 Objective Remarks GENERAL: Elderly male, upright in chair next to bed SKIN: Warm and dry. HEAD: Normocephalic. EYES: No injection or drainage. NECK: Supple, trachea midline. CARDIOVASCULAR: +S1/S2 RESPIRATORY: anterior bullock clear. on 4L O2 via NC GASTROINTESTINAL: Abdomen soft, non-tender, nondistended. EXTREMITIES: No cyanosis, or edema. MUSCULOSKELETAL: Adequate muscle tone. NEUROLOGICAL: awake and alert, normal speech. Assessment/Plan Problem List: (1) Iron deficiency anemia ICD Codes: D50.9 - Iron deficiency anemia, unspecified Plan: --anemia dating back to Jan 07 2017. --01/26/2017, colonoscopy (w/poor prep)--> No bleeding site was identified. upper endoscopy showed reactive gastropathy and focal mild and acute inflammation. --s/p IV iron, 1625 mg on 03/30/2017. --GI following and patient hesitant to have repeat colonoscopy. plan is for outpatient capsule EGD --may need bone marrow biopsy Assessment 81y/o male with iron deficiency anemia. h/o Recurrent anemia, presumed to be due to GI bleeding without a source identified. COPD. Atrial fibrillation. BPH. Congestive heart failure. Diabetes. Elevated cholesterol. Hypertension. Sleep apnea with CPAP. Plan 1. IV iron today 2. monitor CBC 3. stool hemoccult testing 4. will check repeat H/H this afternoon. If hemoglobin falling at that time, will order repeat blood transfusion. Attending Statement The exam, history, and the medical decision-making described in the above note were completed with the assistance of the mid-level provider. I reviewed and agree with the findings presented. I attest that I had a [id number] encounter with the patient on the same day, and personally performed and documented my assessment and findings in the medical record. Stool Heme-occult pending Check CBC Will transfuse 1 unit of pRBC Lasix 20mg IV after prbc transfusion d/w rn o/n events reviewed Lelia Bernabe May 22, 2017 09:49 Ky Lopez MD May 22, 2017 11:32
[2017-05-22] MEDS: DOCUSATE SODIUM 100 MG CAP PO SCH ×2 (12:46→18:52)
[2017-05-22] MEDS: ACETAMINOPHEN 500 MG CPLT PO PRN (12:47)
[2017-05-22] MEDS ORDERED: DIATRIZOATE MEGLUM/DIATRIZOATE SOD 9 ML CUP PO ONE (14:30)
[2017-05-22 15:52] LABS: HEMATOCRIT 26.7 % (39.0-51.0); REVIEW FLAG FINAL
--- NOTE | 2017-05-22 16:20 | HHI.PR ---
Subjective Remarks Nursing denies any acute deterioration since last night. Patient himself is saying he hasn't had another bowel movement to see if there is any blood in it or not. Does complain of abdominal pain on his left lower abdomen. Objective Vital Signs Date Time Temp Pulse Resp B/P (MAP) Pulse Ox O2 Delivery O2 Flow Rate FiO2 05/22/17 15:21 97.5 71 18 128/70 (89) 96 05/22/17 15:00 69 05/22/17 14:00 68 05/22/17 13:00 68 05/22/17 12:00 97.6 67 18 129/70 (89) 94 05/22/17 12:00 68 05/22/17 11:12 95 Nasal Cannula 4.00 05/22/17 11:00 69 05/22/17 10:00 68 05/22/17 09:00 72 05/22/17 08:30 Nasal Cannula 4.00 05/22/17 08:30 97.6 69 18 141/73 (95) 93 05/22/17 08:00 76 05/22/17 07:00 69 05/22/17 06:00 72 05/22/17 05:00 70 05/22/17 04:00 74 05/22/17 04:00 Nasal Cannula 4.00 05/22/17 04:00 98.2 74 18 126/68 (87) 95 05/22/17 03:00 70 05/22/17 02:00 69 05/22/17 01:00 70 05/22/17 00:00 98.1 69 20 124/64 (84) 98 05/22/17 00:00 69 05/22/17 00:00 Nasal Cannula 4.00 05/21/17 23:00 70 05/21/17 22:00 69 05/21/17 21:00 70 05/21/17 20:00 Nasal Cannula 4.00 05/21/17 20:00 98.4 69 20 137/72 (93) 05/21/17 20:00 72 05/21/17 18:01 69 05/21/17 17:22 70 05/21/17 17:12 94 Nasal Cannula 3.00 05/21/17 16:29 116 I/O 05/21/17 05/21/17 05/21/17 05/22/1717 10/1/17 07:00 15:00 23:00 07:00 15:00 23:00 Intake Total 480 ml 430 ml 1240 ml 480 ml Output Total 700 ml 1200 ml 800 ml Balance -220 ml 430 ml 40 ml -320 ml Intake Oral 480 ml 1240 ml 480 ml Packed Cells 400 ml Blood Product IV Normal Saline Flush 30 ml Output Urine Total 700 ml 1200 ml 800 ml Stool Total 0 ml # Voids 5 # Bowel Movements 0 0 Result Diagram: 05/22/17 1355 05/22/17 0624 Objective Remarks Sitting in chair, awake, alert no conversive dyspnea, has nasal cannula in place Abdomen is obese, has mild left lower quadrant tenderness to palpation with no guarding, nondistended, soft A/P Assessment and Plan 81 y/o male with a history of DM, COPD on home o2 2L,enlarged prostate, Afib, anxiety, depression, CHF and HTN presented to the ED with complaints of sob and low hemoglobin. Symptomatic anemia - suspected to be from unidentified GI source - Improved with transfusions, hemoglobin most recently at 8, repeat hemoglobin due to day, patient still leaning towards pill endoscopy as an outpatient given the risks of colonoscopy w/ bx on blood thinner - Hematology transfusing as needed. Abdominal pain - Maybe associated with the source of his bleeding, now that his renal function is improved he can undergo a CT with contrast, will order accordingly chronic respiratory Failure due to Acute CHF exacerbation on chronic diastolic CHF - Last Echo shows LVH, EF 55% -acute resp failure component resolved, pt now back to chronic baseline on 4L - continue home meds of nebivolol, lisinopril, torsemide NEREYDA superimposed on CKD - improving, monitor w/ BMP in AM since pt getting contrast DM, chronic -Accu checks with SSI -Continue Levemir HS Chronic anticoagulation with Coumadin -INR 1.6 on admission. Coumadin on hold pending GI workup. GI and oven loader to help determine when anticoagulation can be restarted. DVT prophylaxis: SCDs, hold Coumadin for now due to anemia and possible active GI bleed. Scott Hirsch MD May 22, 2017 16:20
--- NOTE | 2017-05-22 17:25 | HHI.GIFU ---
Subjective Remarks Resting in bed. No n/v. Tolerating diet. No obvious active bleeding. Does complain of intermittent dull ache in LLQ. CT scan ordered/pending. He does not want colonoscopy. He would like capsule endoscopy as outpatient. (Saray Wilkinson) Objective Vitals I&O Vital Signs Date Time Temp Pulse Resp B/P (MAP) Pulse Ox O2 Delivery O2 Flow Rate FiO2 05/22/17 17:16 73 05/22/17 16:41 69 05/22/17 15:21 97.5 71 18 128/70 (89) 96 05/22/17 15:00 69 05/22/17 14:00 68 05/22/17 13:00 68 05/22/17 12:00 97.6 67 18 129/70 (89) 94 05/22/17 12:00 68 05/22/17 11:12 95 Nasal Cannula 4.00 05/22/17 11:00 69 05/22/17 10:00 68 05/22/17 09:00 72 05/22/17 08:30 Nasal Cannula 4.00 05/22/17 08:30 97.6 69 18 141/73 (95) 93 05/22/17 08:00 76 05/22/17 07:00 69 05/22/17 06:00 72 05/22/17 05:00 70 05/22/17 04:00 74 05/22/17 04:00 Nasal Cannula 4.00 05/22/17 04:00 98.2 74 18 126/68 (87) 95 05/22/17 03:00 70 05/22/17 02:00 69 05/22/17 01:00 70 05/22/17 00:00 98.1 69 20 124/64 (84) 98 05/22/17 00:00 69 05/22/17 00:00 Nasal Cannula 4.00 05/21/17 23:00 70 05/21/17 22:00 69 05/21/17 21:00 70 05/21/17 20:00 Nasal Cannula 4.00 05/21/17 20:00 98.4 69 20 137/72 (93) 05/21/17 20:00 72 05/21/17 18:01 69 05/21/17 17:22 70 I/O 9/3005/21/17 05/21/17 05/22/17 05/22/17 05/22/17 07:00 15:00 23:00 07:00 15:00 23:00 Intake Total 480 ml 430 ml 1240 ml 480 ml Output Total 700 ml 1200 ml 800 ml Balance -220 ml 430 ml 40 ml -320 ml Intake Oral 480 ml 1240 ml 480 ml Packed Cells 400 ml Blood Product IV Normal Saline Flush 30 ml Output Urine Total 700 ml 1200 ml 800 ml Stool Total 0 ml # Voids 5 # Bowel Movements 0 0 Laboratory Laboratory Tests Test 05/22/17 06:24 05/22/17 13:55 White Blood Count 3.9 Red Blood Count 3.17 Hemoglobin 8.0 8.1 Hematocrit 25.8 26.7 Mean Corpuscular Volume 81.2 Mean Corpuscular Hemoglobin 25.3 Mean Corpuscular Hemoglobin Concent 31.1 Red Cell Distribution Width 21.3 Platelet Count 156 Mean Platelet Volume 8.6 Blood Urea Nitrogen 34 Creatinine 1.02 Random Glucose 182 Calcium Level 8.4 Sodium Level 140 Potassium Level 4.6 Chloride Level 100 Carbon Dioxide Level 37.6 Anion Gap 2 Estimat Glomerular Filtration Rate 70 Imaging Last Impressions Chest X-Ray 05/19/17 2241 Signed Impressions: Service Date/Time: April 22:54 - CONCLUSION: 1. Mild congestive heart failure. Findings similar to February 13. Kamaljit Natarajan MD Physical Exam HEENT: Normocephalic; atraumatic; no jaundice. NECK: Neck is supple CHEST: Crackles heard in bases bilaterally. CARDIAC: RRR with no murmur gallop or rubs. ABDOMEN: Soft, nondistended, nontender; bowel sounds are present EXTREMITIES: BLE edema. SOLDERING TECHNICIAN: No focal deficits; alert and oriented x 3. (Saray Wilkinson) Assessment and Plan Plan ASSESSMENT: - Acute on chronic anemia. HH on admission 6.4/21.3, MCV 79.8, MCHC 29.8, Iron 29, TIBC 381, Iron Saturation 7.6%. EGD/Colonoscopy (01/26/17)----> 1. There was LA Class A esophagitis noted 2. Diaphragmatic hiatus was present that measured 2 scope diameters 3. A small nodule was located in the gastric antrum; multiple biopsies were performed 4. Normal duodenal mucosa in the bulb and second portion of the duodenum 1. Significant amount of stool was present throughout the entire examined colon 2. There was evidence of a prior ileocolonic surgical anastomosis in the ascending colon 3. A small flat polyp was found in the ascending colon; multiple biopsies of the lesion were performed 4. Retroflexed views revealed no abnormalities 5. Suboptimal bowel prep limited the exam. Pathology revealed reactive gastropathy, as may be seen with bile reflux or drug therapy, focal mild acute and chronic inflammation, a Wilma stain is negative for Helicobacter, ascending colon tubular adenoma. Rpt. colonoscopy in 6 months secondary to poor prep. He is not having any GI symptoms. He does take Coumadin for atrial fibrillation. Hematology following---> recommend keeping his hgb around 10 because of his ongoing blood loss, repeat GI evaluation and if negative, then a consider bone marrow aspirate and biopsy. S/P 3 units PRBC. HH is 8.1/26.7. He is not having any obvious active gi bleeding. He does not want repeat colonoscopy. He would like to have capsule endoscopy as outpatient. - LLQ pain. Intermittent dull ache in LLQ. (+) mild constipation. No diarrhea. No obvious bleeding. CT Scan abdomen/pelvis ordered. - CHF exacerbation, Atrial fibrillation. - COPD, DM, NEREYDA per attending. PLAN: - Heart healthy diet - Await CT Scan abdomen/pelvis - Hemoccult stool x 3 pending - Protonix 40mg po daily - Monitor HH - Transfuse as necessary - Notify GI of active bleeding - Hematology following. - Capsule endoscopy as outpatient - ? SBFT prior to d/c - Supportive care - Further recommendations to follow based on result of above. - Patient seen and examined by Dr. Thomas and myself and this note is written on his behalf. (Saray Wilkinson) Plan Patient was seen and examined, agree with above note, will need capsule endoscopy as an outpatient, (Kell Thomas MD) Saray Wilkinson May 22, 2017 17:25 Kell Thomas MD May 22, 2017 18:16
[2017-05-22] MEDS ORDERED: IOHEXOL 350 MG/ML 10 ML VIAL (for RAD DIAG) IV PUSH ONE (18:25)
--- NOTE | 2017-05-22 18:46 | RADRPT ---
EXAM DATE/TIME: 05/22/2017 18:24 [facility] COMPARISON: No previous studies available for comparison. INDICATIONS : Abdomen pain. IV CONTRAST: 100 cc Omnipaque 350 (iohexol) IV ORAL CONTRAST: Prescribed oral contrast ingested. RADIATION DOSE: 16.87 CTDIvol (mGy) MEDICAL HISTORY : Cardiovascular disease. Hypertension. SURGICAL HISTORY : Defibrillator. ENCOUNTER: Initial ACUITY: 1 day PAIN SCALE: 5/10 LOCATION: Bilateral abdomen TECHNIQUE: Volumetric scanning of the abdomen and pelvis was performed. Using automated exposure control and ad justment of the mA and/or kV according to patient size, radiation dose was kept as low as reasonably achievable to obtain optimal diagnostic quality images. DICOM format image data is available electro nically for review and comparison. FINDINGS: LOWER LUNGS: There is a large right pleural effusion measuring up to 7.6 cm in AP dimension. Consolidative infilt rate in the lower left lung has a mildly sclerotic appearance suggesting possible rounded atelectasis . No left pleural effusion. LIVER: There is a mild amount of ascites about the liver which tracks into the paracolic gutters bilaterally . Homogeneous density without lesion. There is no dilation of the biliary tree. Cholecystectomy. SPLEEN: Normal size without lesion. PANCREAS: Within normal limits. KIDNEYS: Multiple varying sized bilateral renal cysts measuring up to 4.7 cm and size. No calcified renal sto kari, no evidence of hydronephrosis and no solid lesions. ADRENAL GLANDS: Within normal limits. VASCULAR: There is no aortic aneurysm. BOWEL/MESENTERY: No dilated loops of small or large bowel. Oral contrast passes through to the right colon. ABDOMINAL WALL: Within normal limits. RETROPERITONEUM: There is no lymphadenopathy. BLADDER: No wall thickening or mass. REPRODUCTIVE: Moderate enlargement of the prostate causes an indentation on the base of the urinary bladder. Super ior-inferior dimension 6.0 cm. INGUINAL: There is no lymphadenopathy or hernia. MUSCULOSKELETAL: Within normal limits for patient age. CONCLUSION: 1. Large right pleural effusion. 2. Consolidative infiltrate left lower lung. 3. Mild upper abdominal ascites. Villa Schultz MD on May 22, 2017 at 18:40 Board Certified Radiologist. This report was verified electronically.
--- NOTE | 2017-05-22 19:38 | RADRPT ---
EXAM DATE/TIME: 05/22/2017 19:12 [facility] COMPARISON: CHEST SINGLE AP, May 19, 2017, 22:54. INDICATIONS : Post thoracentesis. MEDICAL HISTORY : None. SURGICAL HISTORY : Pacemaker. ENCOUNTER: Subsequent ACUITY: 3 days PAIN SCORE: 5/10 LOCATION: Bilateral chest FINDINGS: Patchy areas of consolidation in the mid and lower lungs bilaterally is similar in severity to 7. There is loss of delineation and meniscal interface in the costophrenic angles bilaterally, left greater than right. The heart is enlarged. Cardiac pacer leads in place. No evidence of pneumothor ax. CONCLUSION: Persistent consolidation in the lower lungs and probable associated pleural effusions, left greater t marley right. No evidence of pneumothorax. Villa Schultz MD on May 22, 2017 at 19:36 Board Certified Radiologist. This report was verified electronically.
[2017-05-22] MEDS: AMITRIPTYLINE HCL 25 MG TAB PO SCH (19:47)
[2017-05-22] MEDS: ACETAMINOPHEN/HYDROcodone 325 MG/5 MG TAB PO PRN (19:48)
[2017-05-22] MEDS: FINASTERIDE 5 MG TAB PO SCH (19:48)
[2017-05-22] MEDS: traZODone HCL 50 MG TAB PO SCH (19:49)
[2017-05-22] MEDS: INSULIN DETEMIR 100 UNITS/ML VIAL SQ SCH (20:21)
[2017-05-22] MEDS ORDERED: FUROSEMIDE 20 MG/2 ML VIAL IV PUSH ONE (21:00)
[2017-05-22] MEDS ORDERED: FUROSEMIDE 20 MG/2 ML VIAL IV PUSH SCH (22:45)
[2017-05-23] VITALS (15 sets, daily range): BP systolic 114–136; BP diastolic 57–74; PULSE 20–77; RESP 18–20; TEMP 97.7–98.4; O2SAT 92–100
[2017-05-23 02:06] LABS: AUTOMATED NEUTROPHIL # 3.1 TH/MM3 (1.8-7.7); BASOPHIL # 0.1 TH/MM3 (0-0.2); BASOPHIL % 1.8 % (0.0-2.0); EOSINOPHIL # 0.1 TH/MM3 (0-0.4); EOSINOPHIL % 3.3 % (0.0-4.0); HEMATOCRIT 25.7 % (39.0-51.0); LYMPH % 8.8 % (9.0-44.0); LYMPHOCYTE # 0.4 TH/MM3 (1.0-4.8); MEAN CELL VOLUME 81.5 FL (80.0-100.0); MEAN CORPUSCULAR HEMOGLOBIN 25.6 PG (27.0-34.0); MEAN CORPUSCULAR HGB CONC 31.4 % (32.0-36.0); MONO % 11.7 % (0.0-8.0); NEUT % 74.4 % (16.0-70.0); PLATELET COUNT 154 TH/MM3 (150-450); RED BLOOD COUNT 3.16 MIL/MM3 (4.50-5.90); RED CELL DISTRIBUTION WIDTH 21.9 % (11.6-17.2); WHITE BLOOD COUNT 4.2 TH/MM3 (4.0-11.0)
[2017-05-23 02:17] LABS: POTASSIUM 4.8 MEQ/L (3.5-5.1)
[2017-05-23 02:18] LABS: INTERNATIONAL NORMALIZED RATIO 1.2 RATIO; PROTHROMBIN TIME - PATIENT 13.2 SEC (9.8-11.6)
[2017-05-23 02:20] LABS: HEMO FLAGS AUTO DIFF
[2017-05-23 02:44] LABS: SCAN/DIFF AUTO DIFF CONFIRMED
[2017-05-23 02:45] LABS: PLATELET ESTIMATE SMEAR NORMAL (NORMAL); PLATELET MORPHOLOGY NORMAL (NORMAL)
[2017-05-23] MEDS: LORazepam 2 MG TAB PO PRN (05:51)
[2017-05-23] MEDS: GABAPENTIN 100 MG CAP PO SCH ×2 (10:15→15:16)
[2017-05-23] MEDS: CYANOCOBALAMIN 100 MCG TAB PO SCH (10:15)
[2017-05-23] MEDS: ATORVASTATIN 40 MG TAB PO SCH (10:15)
[2017-05-23] MEDS: DOCUSATE SODIUM 100 MG CAP PO SCH ×2 (10:16→15:15)
[2017-05-23] MEDS: DIGOXIN 0.125 MG TAB PO SCH (10:16)
[2017-05-23] MEDS: PANTOPRAZOLE SOD 40 MG DELAYED RELEASE TAB PO SCH (10:27)
[2017-05-23] MEDS: INSULIN ASPART SUPPLEMENTAL SCALE SQ SCH ×2 (10:27→12:00)
[2017-05-23] MEDS: FLUTICASONE PROPIONATE 50 MCG/ACT 16 GM NASAL SPRAY NASAL SCH (10:27)
--- NOTE | 2017-05-23 11:19 | PD.ONC.PN ---
Subjective Subjective Remarks Afebrile overnight. Still no BM. Waiting to go to IR for thoracentesis. Did not sleep well last night. Objective Data Date Time Temp Pulse Resp B/P (MAP) Pulse Ox O2 Delivery O2 Flow Rate FiO2 05/23/17 07:39 95 Nasal Cannula 4.00 05/23/17 05:24 98.1 69 20 129/66 94 05/23/17 04:00 98.0 70 18 120/67 (84) 94 05/23/17 04:00 70 05/23/17 04:00 98.0 70 20 116/70 93 05/23/17 04:00 Nasal Cannula 4.00 05/23/17 03:44 98.0 70 20 120/67 94 05/23/17 03:31 98.0 77 20 122/70 92 05/23/17 03:07 98.1 74 20 114/62 95 05/23/17 03:00 69 05/23/17 02:00 72 05/23/17 01:00 70 05/23/17 00:00 98.4 71 18 124/63 (83) 94 05/23/17 00:00 71 05/23/17 00:00 Nasal Cannula 4.00 05/22/17 23:00 70 05/22/17 22:00 72 05/22/17 21:45 95 Nasal Cannula 4.00 05/22/17 21:00 73 05/22/17 20:00 69 05/22/17 20:00 98.2 74 18 126/68 (87) 95 05/22/17 20:00 Nasal Cannula 4.00 05/22/17 18:00 72 05/22/17 17:16 73 05/22/17 16:41 69 05/22/17 15:21 97.5 71 18 128/70 (89) 96 05/22/17 15:00 69 05/22/17 14:00 68 05/22/17 13:00 68 05/22/17 12:00 97.6 67 18 129/70 (89) 94 05/22/17 12:00 68 05/23/17 05/23/17 05/23/17 07:00 15:00 23:00 Intake Total 1090 ml Output Total 800 ml Balance 290 ml Result Diagram: 05/23/1715105/23/17151 Laboratory Results Laboratory Tests Test 05/22/17 13:55 05/23/17 01:52 Hemoglobin 8.1 GM/DL 8.1 GM/DL Hematocrit 26.7 % 25.7 % White Blood Count 4.2 TH/MM3 Red Blood Count 3.16 MIL/MM3 Mean Corpuscular Volume 81.5 FL Mean Corpuscular Hemoglobin 25.6 PG Mean Corpuscular Hemoglobin Concent 31.4 % Red Cell Distribution Width 21.9 % Platelet Count 154 TH/MM3 Mean Platelet Volume 8.6 FL Neutrophils (%) (Auto) 74.4 % Lymphocytes (%) (Auto) 8.8 % Monocytes (%) (Auto) 11.7 % Eosinophils (%) (Auto) 3.3 % Basophils (%) (Auto) 1.8 % Neutrophils # (Auto) 3.1 TH/MM3 Lymphocytes # (Auto) 0.4 TH/MM3 Monocytes # (Auto) 0.5 TH/MM3 Eosinophils # (Auto) 0.1 TH/MM3 Basophils # (Auto) 0.1 TH/MM3 CBC Comment AUTO DIFF Differential Comment AUTO DIFF CONFIRMED Platelet Estimate NORMAL Platelet Morphology Comment NORMAL Prothrombin Time 13.2 SEC Prothromb Time International Ratio 1.2 RATIO Blood Urea Nitrogen 36 MG/DL Creatinine 1.13 MG/DL Random Glucose 158 MG/DL Calcium Level 8.5 MG/DL Sodium Level 141 MEQ/L Potassium Level 4.8 MEQ/L Chloride Level 101 MEQ/L Carbon Dioxide Level 38.0 MEQ/L Anion Gap 2 MEQ/L Estimat Glomerular Filtration Rate 62 ML/MIN Administered Medications Medications (Trade) Dose Ordered Sig/Faviola Route PRN Reason Start Time Stop Time Status Last Admin Dose Admin Sodium Chloride (NS Flush) 2 ml BID IV FLUSH 05/20/17 09:00 05/22/17 19:49 Insulin Aspart (NovoLOG SUPPLEMENTAL SCALE) 1 ACHS SLIDING SCALE SQ 05/20/17 08:00 05/23/17 10:27 Amitriptyline HCl (Elavil) 25 mg HS PO 05/20/17 21:00 05/22/17 19:47 Atorvastatin Calcium (Lipitor) 40 mg DAILY PO 05/20/17 09:00 05/23/17 10:15 Digoxin (Lanoxin) 0.125 mg DAILY PO 05/20/17 09:00 05/23/17 10:16 Ferrous Sulfate (Ferrous Sulfate Liq) 200 mg BIDPC PO 05/20/17 09:00 05/22/17 18:52 Finasteride (Proscar) 5 mg HS PO 05/20/17 21:00 05/22/17 19:48 Insulin Detemir (Levemir Inj) 10 units HS SQ 05/20/17 21:00 05/22/17 20:21 Nebivolol (Bystolic) 10 mg BID PO 05/20/17 09:00 05/22/17 19:48 Trazodone HCl (Desyrel) 50 mg HS PO 05/20/17 21:00 05/22/17 19:49 Lorazepam (Ativan) 2 mg Q6H PRN PO ANXIETY 05/20/17 14:15 05/23/17 05:51 Cholecalciferol (Vitamin D3) 2,000 units DAILY PO 05/21/17 09:00 05/22/17 08:52 Cyanocobalamin (Vitamin B12) 100 mcg DAILY PO 05/21/17 09:00 05/23/17 10:15 Acetaminophen/ Hydrocodone Bitart ([place] 5-325 Mg) 2 tab Q6H PRN PO PAIN 1-10 05/20/17 14:15 05/22/17 19:48 Fluticasone Propionate (Flonase Osvaldo Spr) 1 spray BID NASAL 05/20/17 21:00 05/23/17 10:27 Pantoprazole Sodium (Protonix) 40 mg DAILY PO 05/20/17 15:15 05/23/17 10:27 Acetaminophen (Tylenol) 500 mg Q6H PRN PO headache 05/20/17 17:00 05/22/17 12:47 Gabapentin (Neurontin) 100 mg TID PO 05/21/17 13:00 05/23/17 10:15 Torsemide (Demadex) 40 mg BID PO 05/21/17 21:00 05/22/17 19:49 Docusate Sodium (Colace) 100 mg TID PO 05/22/17 13:00 05/23/17 10:16 Furosemide (Lasix Inj) 20 mg ONCE IV PUSH 05/22/17 22:45 05/23/17 23:59 05/23/17 05:51 Objective Remarks GENERAL: Elderly male upright in bed SKIN: Warm and dry. HEAD: Normocephalic. EYES: No injection or drainage. NECK: Supple, trachea midline. CARDIOVASCULAR: Regular rate and rhythm RESPIRATORY: diminished right breath sounds. anterior bullock with occasional wheeze. on 4L O2 via NC GASTROINTESTINAL: Abdomen soft, non-tender, nondistended. EXTREMITIES: No cyanosis NEUROLOGICAL: awake and alert, normal speech. Assessment/Plan Problem List: (1) Iron deficiency anemia ICD Codes: D50.9 - Iron deficiency anemia, unspecified Plan: --anemia dating back to Jan 07 2017. --01/26/2017, colonoscopy (w/poor prep)--> No bleeding site was identified. upper endoscopy showed reactive gastropathy and focal mild and acute inflammation. --s/p IV iron, 1625 mg on 03/30/2017. --GI following and patient hesitant to have repeat colonoscopy. plan is for outpatient capsule EGD --may need bone marrow biopsy (can be done outpatient) Assessment 81y/o male with iron deficiency anemia. h/o Recurrent anemia, presumed to be due to GI bleeding without a source identified. COPD. Atrial fibrillation. BPH. Congestive heart failure. Diabetes. Elevated cholesterol. Hypertension. Sleep apnea with CPAP. Plan 1. monitor CBC 2. thoracentesis today for large right pleural effusion 3. follow up in clinic for further IV iron, possible bone marrow biopsy once discharged Attending Statement The exam, history, and the medical decision-making described in the above note were completed with the assistance of the mid-level provider. I reviewed and agree with the findings presented. I attest that I had a [id number] encounter with the patient on the same day, and personally performed and documented my assessment and findings in the medical record. better. PRBC and Iron. Ok to d/c fu as outpt. Problem Qualifiers (1) Iron deficiency anemia: Qualified Codes: D50.0 - Iron deficiency anemia secondary to blood loss ( chronic) Lelia Bernabe May 23, 2017 11:19 Michele Garcia MD May 23, 2017 18:13
[2017-05-23] MEDS: NEBIVOLOL 10 MG TAB PO SCH (12:20)
[2017-05-23] MEDS: FERROUS SULFATE 300 MG /5ML UDC PO SCH (12:28)
[2017-05-23] MEDS: TORSEMIDE 20 MG TAB PO SCH (12:28)
--- NOTE | 2017-05-23 13:51 | RADRPT ---
EXAM DATE/TIME: 05/23/2017 13:27 [facility] COMPARISON: CHEST SINGLE AP, May 22, 2017, 19:12. INDICATIONS : Post right thoracentesis. MEDICAL HISTORY : None. SURGICAL HISTORY : Pacemaker. ENCOUNTER: Initial ACUITY: 1 day PAIN SCORE: 5/10 LOCATION: Right chest FINDINGS: Interval improved aeration of the right lower lung zone following right-sided thoracentesis. No signi ficant pneumothorax. Redemonstration of mild left lower lung zone pleural parenchymal disease. Mild d iffuse interstitial prominence exaggerated by expiratory technique. Cardiac slight is enlarged. Remai nder of exam is unchanged. CONCLUSION: 1. Improved right lower lung zone aeration following right-sided thoracentesis. No significant pneumo thorax. 2. Stable left lower lung zone pleural-parenchymal disease. 3. Cardiomegaly with mild positive fluid balance. Booker Houston MD on May 23, 2017 at 13:44 Board Certified Radiologist. This report was verified electronically.
[2017-05-23 14:46] LABS: PLEURAL FLUID LYMPHS 82 %
[2017-05-23] MEDS ORDERED: LIDOCAINE HCL 1% PF 30 ML VIAL ONE (15:05)
[2017-05-23] MEDS: CHOLECALCIFEROL (VIT D3) 1000 UNIT TAB PO SCH (15:15)
--- NOTE | 2017-05-23 15:29 | RADRPT ---
EXAM DATE/TIME: 05/23/2017 12:56 [facility] COMPARISON: No previous studies available for comparison. INDICATIONS : Right pleural effusion. MEDICAL HISTORY : Congestive heart failure. Hypercholesterolemia. Hypertension. A-fib. COPD. Sleep apnea. Hiatal hernia . Arthritis. Anemia. SURGICAL HISTORY : Pacemaker. Appendectomy. Cholecystectomy. Bilateral knee replacement. ENCOUNTER: Subsequent ACUITY: 2 days PAIN SCORE: 3/10 LOCATION: Right chest FLUID: Total volume of 1100 cc of clear, red fluid was removed. Fluid was sent to lab for ordered studies. TECHNIQUE: 1. Ultrasound guidance for thoracentesis. 2. Thoracentesis. The risks, benefits, and alternatives to ultrasound guided thoracentesis were explained to the patien t in lay simple terms, including the risk of bleeding and infection. Written and verbal informed con sent was obtained. Appropriate area for thoracentesis was marked under ultrasound guidance with the patient in the uprig ht position. Overlying skin was prepped and draped in the usual sterile fashion and with local anest hetic, a dermatotomy was made with an 11 blade scalpel. A 6 Taiwanese thoracentesis catheter was placed in the pleural space and fluid was removed. Catheter was then removed and a sterile dressing applie d. There were no immediate complications. The patient tolerated the procedure well and the left the ultrasound suite in stable condition. Chest radiograph is to be obtained. CONCLUSION: Uncomplicated ultrasound guided thoracentesis. Eric Way MD on May 23, 2017 at 15:27 Board Certified Radiologist. This report was verified electronically.
--- NOTE | 2017-05-23 15:57 | HHI.GIFU ---
Subjective Remarks Up in chair. No signs of GI bleeding. No longer having any abdominal discomfort. Hoping to go home today. (Saray Wilkinson) Objective Vitals I&O Vital Signs Date Time Temp Pulse Resp B/P (MAP) Pulse Ox O2 Delivery O2 Flow Rate FiO2 05/23/17 14:03 69 20 128/68 (88) 98 05/23/17 13:48 98.2 70 20 120/57 (78) 98 05/23/17 11:30 97.7 70 18 132/70 (90) 98 05/23/17 07:39 95 Nasal Cannula 4.00 05/23/17 07:30 Nasal Cannula 4.00 100 05/23/17 07:30 98.0 73 18 130/65 (86) 100 05/23/17 07:30 69 05/23/17 05:24 98.1 69 20 129/66 94 05/23/17 04:00 98.0 70 18 120/67 (84) 94 05/23/17 04:00 70 05/23/17 04:00 98.0 70 20 116/70 93 05/23/17 04:00 Nasal Cannula 4.00 05/23/17 03:44 98.0 70 20 120/67 94 05/23/17 03:31 98.0 77 20 122/70 92 05/23/17 03:07 98.1 74 20 114/62 95 05/23/17 03:00 69 05/23/17 02:00 72 05/23/17 01:00 70 05/23/17 00:00 98.4 71 18 124/63 (83) 94 05/23/17 00:00 71 05/23/17 00:00 Nasal Cannula 4.00 05/22/17 23:00 70 05/22/17 22:00 72 05/22/17 21:45 95 Nasal Cannula 4.00 05/22/17 21:00 73 05/22/17 20:00 69 05/22/17 20:00 98.2 74 18 126/68 (87) 95 05/22/17 20:00 Nasal Cannula 4.00 05/22/17 18:00 72 05/22/17 17:16 73 05/22/17 16:41 69 I/O 05/22/17 05/22/17 05/22/17 05/23/17/2/17 10/2/17 07:00 15:00 23:00 07:00 15:00 23:00 Intake Total 480 ml 1726 ml 1090 ml Output Total 800 ml 800 ml 350 ml Balance -320 ml 1726 ml 290 ml -350 ml Intake Oral 480 ml 1726 ml 480 ml Packed Cells 580 ml Blood Product IV Normal Saline Flush 30 ml Output Urine Total 800 ml 800 ml 350 ml # Voids 4 # Bowel Movements 0 0 0 Laboratory Laboratory Tests Test 05/23/17 01:52 05/23/17 12:20 White Blood Count 4.2 Red Blood Count 3.16 Hemoglobin 8.1 Hematocrit 25.7 Mean Corpuscular Volume 81.5 Mean Corpuscular Hemoglobin 25.6 Mean Corpuscular Hemoglobin Concent 31.4 Red Cell Distribution Width 21.9 Platelet Count 154 Mean Platelet Volume 8.6 Neutrophils (%) (Auto) 74.4 Lymphocytes (%) (Auto) 8.8 Monocytes (%) (Auto) 11.7 Eosinophils (%) (Auto) 3.3 Basophils (%) (Auto) 1.8 Neutrophils # (Auto) 3.1 Lymphocytes # (Auto) 0.4 Monocytes # (Auto) 0.5 Eosinophils # (Auto) 0.1 Basophils # (Auto) 0.1 CBC Comment AUTO DIFF Differential Comment AUTO DIFF CONFIRMED Platelet Estimate NORMAL Platelet Morphology Comment NORMAL Prothrombin Time 13.2 Prothromb Time International Ratio 1.2 Blood Urea Nitrogen 36 Creatinine 1.13 Random Glucose 158 Calcium Level 8.5 Sodium Level 141 Potassium Level 4.8 Chloride Level 101 Carbon Dioxide Level 38.0 Anion Gap 2 Estimat Glomerular Filtration Rate 62 Pleural Fluid WBC 511 Pleural Fluid RBC 6387 Pleural Fluid Neutrophils 6 Pleural Fluid Lymphocytes 82 Pleural Fluid Monocytes 10 Pleural Fluid Histiocytes 1 Pleural Fluid Mesothelial Cells 1 Pleural Fluid Comment Imaging Last Impressions Chest X-Ray 05/23/17 0000 Signed Impressions: Service Date/Time: Tuesday, May 23, 2017 13:27 - CONCLUSION: 1. Improved right lower lung zone aeration following right-sided thoracentesis. No significant pneumothorax. 2. Stable left lower lung zone pleural-parenchymal disease. 3. Cardiomegaly with mild positive fluid balance. Booker Houston MD Abdomen/Pelvis CT 05/22/17 0000 Signed Impressions: Service Date/Time: Monday, May 22, 2017 18:24 - CONCLUSION: 1. Large right pleural effusion. 2. Consolidative infiltrate left lower lung. 3. Mild upper abdominal ascites. Villa Schultz MD Physical Exam HEENT: Normocephalic; atraumatic; no jaundice. NECK: Neck is supple CHEST: Resp. even/unlabored, bases diminished CARDIAC: RRR with no murmur gallop or rubs. ABDOMEN: Soft, nondistended, nontender; bowel sounds are present EXTREMITIES: BLE edema. EVENING ANCHOR: No focal deficits; alert and oriented x 3. (WilkinsonSaray) Assessment and Plan Plan ASSESSMENT: - Acute on chronic anemia. HH on admission 6.4/21.3, MCV 79.8, MCHC 29.8, Iron 29, TIBC 381, Iron Saturation 7.6%. EGD/Colonoscopy (01/26/17)----> 1. There was LA Class A esophagitis noted 2. Diaphragmatic hiatus was present that measured 2 scope diameters 3. A small nodule was located in the gastric antrum; multiple biopsies were performed 4. Normal duodenal mucosa in the bulb and second portion of the duodenum 1. Significant amount of stool was present throughout the entire examined colon 2. There was evidence of a prior ileocolonic surgical anastomosis in the ascending colon 3. A small flat polyp was found in the ascending colon; multiple biopsies of the lesion were performed 4. Retroflexed views revealed no abnormalities 5. Suboptimal bowel prep limited the exam. Pathology revealed reactive gastropathy, as may be seen with bile reflux or drug therapy, focal mild acute and chronic inflammation, a Wilma stain is negative for Helicobacter, ascending colon tubular adenoma. Rpt. colonoscopy in 6 months secondary to poor prep. He is not having any GI symptoms. He does take Coumadin for atrial fibrillation and this has been on hold. Hematology following---> recommend keeping his hgb around 10 because of his ongoing blood loss, repeat GI evaluation and if negative, then a consider bone marrow aspirate and biopsy. S/P 4 units PRBC. HH is stable at 8.1/25.7. He is not having any obvious active gi bleeding. He adamantly refuses repeat colonoscopy. He would like to have capsule endoscopy as outpatient. We will schedule as outpatient. - LLQ pain. Intermittent dull ache in LLQ. (+) mild constipation. No diarrhea. No obvious bleeding. CT Scan abdomen/pelvis (05/22/17)--> large right pleural effusion, consolidative infiltrate left lower lung, mild upper abdominal ascites. No longer having abdominal pain. - Large right pleural effusion. S/P thoracentesis. - CHF exacerbation, Atrial fibrillation. - COPD, DM, NEREYDA per attending. PLAN: - Okay to d/c home from GI standpoint - Heart healthy diet - Protonix 40mg po daily - Okay to resume anticoagulation with close observation for bleeding and monitoring H/H - Called office to schedule capsule endoscopy- needs prior authorization. Information given to office and ordered as [facility]. They will obtain authorization and contact patient/ to schedule. Confirmed home and cell number with patient and gave to office. - Capsule endoscopy as outpatient - Patient seen and examined by Dr. Chaves and myself and this note is written on her behalf. (Saray Wilkinson) Saray Wilkinson May 23, 2017 15:56 Tiny Chaves MD May 23, 2017 18:41
[2017-05-23] MEDS ORDERED: ENOXAPARIN SODIUM 40 MG/0.4 ML SYRINGE SQ SCH (16:00)
--- NOTE | 2017-05-23 16:31 | HHI.DCPOC ---
Discharge Care Plan Diagnosis: (1) Pleural effusion (2) A-fib (3) Renal insufficiency (4) Diastolic CHF, acute on chronic (5) Congestive heart failure (6) Hypoxia Goals to Promote Your Health * To prevent worsening of your condition and complications * To maintain your health at the optimal level Do not take any nonsteroidal anti-inflammatory drugs including but not limited to Advil, ibuprofen, Aleve, naproxen, Naprosyn, Motrin, BC powders, Goody powders, or aspirin. Directions to Meet Your Goals Take your medications as prescribed Follow your dietary instruction Follow activity as directed Keep your appointments as scheduled Take your immunizations and boosters as scheduled If your symptoms worsen call your PCP, if no PCP go to Urgent Care Center or Emergency Room Smoking is Dangerous to Your Health. Avoid second hand smoke Call the 24-hour hour crisis hotline for domestic abuse at Scott Hirsch MD May 23, 2017 16:31
--- NOTE | 2017-05-23 16:33 | HHI.DS ---
Discharge Summary Admission Date May 20, 2017 at 01:13 Discharge Date: May 23, 2017 Admitting Diagnosis SYMPTOMATIC ANEMIA, HYPOXEMIA (1) CHF exacerbation ICD Code: I50.9 - Heart failure, unspecified Status: Acute (2) Symptomatic anemia ICD Code: D64.9 - Anemia, unspecified Diagnosis: Principal Status: Acute (3) NEREYDA (acute kidney injury) ICD Code: N17.9 - NEREYDA (acute kidney injury) Status: Acute (4) Acute respiratory failure ICD Code: J96.00 - Acute respiratory failure, unspecified whether with hypoxia or hypercapnia Status: Chronic (5) Pleural effusion ICD Code: J90 - Pleural effusion, not elsewhere classified Status: Acute Procedures Thoracentesis with drainage of 1100 mL's on the right lung Brief History - From Admission Written by JS Caputo acting as scribe for [Chanteng] on 05/20/17 at 02: 23. 81 y/o male with a history of Iron deficiency anemia, DM, COPD on home o2 2L, enlarged prostate, Afib, anxiety, depression, CHF and HTN presented to the ED with complaints of sob and low hemoglobin. Patient states Dr Colon's office called him and his labs showed a low hemoglobin and he was instructed to come to the ED. Patient states for the last few days he has been having increasing shortness of breath and leg swelling with associated dizziness. He did fall today when walking in the house, no LOC, no injury. He denies any chest pain, cough, fever or chills. Patient does have chronic anemia in which he follows with Dr. Garcia outpatient. Last seen 05/09 in hematology office, hgb was 10 at this time Radiology Services Manager: Dr. Colon PCP: Dr. Xie CBC/BMP: 05/23/17 [id number] Significant Findings Laboratory Tests Test 05/21/17 05:35 05/22/17 06:24 05/22/17 13:55 05/23/17 01:52 Red Blood Count 3.33 MIL/MM3 (4.50-5.90) 3.17 MIL/MM3 (4.50-5.90) 3.16 MIL/MM3 (4.50-5.90) Hemoglobin 8.2 GM/DL (13.0-17.0) 8.0 GM/DL (13.0-17.0) 8.1 GM/DL (13.0-17.0) 8.1 GM/DL (13.0-17.0) Hematocrit 26.8 % (39.0-51.0) 25.8 % (39.0-51.0) 26.7 % (39.0-51.0) 25.7 % (39.0-51.0) Mean Corpuscular Hemoglobin 24.5 PG (27.0-34.0) 25.3 PG (27.0-34.0) 25.6 PG (27.0-34.0) Mean Corpuscular Hemoglobin Concent 30.5 % (32.0-36.0) 31.1 % (32.0-36.0) 31.4 % (32.0-36.0) Red Cell Distribution Width 21.2 % (11.6-17.2) 21.3 % (11.6-17.2) 21.9 % (11.6-17.2) Neutrophils (%) (Auto) 81.1 % (16.0-70.0) 74.4 % (16.0-70.0) Lymphocytes (%) (Auto) 7.2 % (9.0-44.0) 8.8 % (9.0-44.0) Lymphocytes # (Auto) 0.4 TH/MM3 (1.0-4.8) 0.4 TH/MM3 (1.0-4.8) Reticulocyte Count 3.1 % (0.4-3.0) Blood Urea Nitrogen 44 MG/DL (7-18) 34 MG/DL (7-18) 36 MG/DL (7-18) Creatinine 1.36 MG/DL (0.60-1.30) Random Glucose 200 MG/DL (74-106) 182 MG/DL (74-106) 158 MG/DL (74-106) Estimat Glomerular Filtration Rate 50 ML/MIN (>89) 70 ML/MIN (>89) 62 ML/MIN (>89) Ferritin 25 NG/ML (26-388) White Blood Count 3.9 TH/MM3 (4.0-11.0) Calcium Level 8.4 MG/DL (8.5-10.1) Carbon Dioxide Level 37.6 MEQ/L (21.0-32.0) 38.0 MEQ/L (21.0-32.0) Anion Gap 2 MEQ/L (5-15) 2 MEQ/L (5-15) Monocytes (%) (Auto) 11.7 % (0.0-8.0) Prothrombin Time 13.2 SEC (9.8-11.6) Test 05/23/17 12:20 Pleural Fluid WBC 511 /MM3 (0-10) Pleural Fluid RBC 6387 /MM3 (0-0) Imaging Last Impressions Thoracentesis Ultrasound 05/23/17 0600 Signed Impressions: Service Date/Time: Tuesday, May 23, 2017 12:56 - CONCLUSION: Uncomplicated ultrasound guided thoracentesis. Eric Way MD Chest X-Ray 05/23/17 0000 Signed Impressions: Service Date/Time: Tuesday, May 23, 2017 13:27 - CONCLUSION: 1. Improved right lower lung zone aeration following right-sided thoracentesis. No significant pneumothorax. 2. Stable left lower lung zone pleural-parenchymal disease. 3. Cardiomegaly with mild positive fluid balance. Booker Houston MD Abdomen/Pelvis CT 05/22/17 0000 Signed Impressions: Service Date/Time: Monday, May 22, 2017 18:24 - CONCLUSION: 1. Large right pleural effusion. 2. Consolidative infiltrate left lower lung. 3. Mild upper abdominal ascites. Villa Schultz MD PE at Discharge GENERAL: in NAD CARDIOVASCULAR: Regular rate and rhythm without murmurs, gallops, or rubs. RESPIRATORY: Bilateral crackles. Otherwise no rhonchi or wheezing. No accessory muscle use. GASTROINTESTINAL: Abdomen soft, non-tender, nondistended. MUSCULOSKELETAL: No cyanosis, or edema. BACK: Nontender without obvious deformity. No CVA tenderness. Hospital Course Patient was admitted, started on PPI. Gastroenterology was consulted as well as hematology oncology. The patient underwent blood transfusions will check helped raise his hemoglobin into the 8s and remained steady. The patient refused in-house colonoscopy and preferred an outpatient pill endoscopy. The patient no longer had any bloody bowel movements but he did complain of vague left-sided abdominal pain. CT scan was obtained which showed diffuse constipation along with a large right-sided pleural effusion. He underwent successful thoracentesis of the right side with improvement in his chronic dyspnea. Patient remained afebrile throughout his entire stay and therefore did not need antibiotics. His hemodynamic status remained stable in terms of his vital signs and his blood counts and he was cleared for discharge from gastroenterology standpoint. He was restarted back on his Coumadin and was counseled to closely watch for any further GI bleeding. Patient has met maximum benefit from hospitalization and is clinically stable for discharge. Gastroenterology arranged for his pill endoscopy to be done outpatient. He has orders to get his blood counts and his INR rechecked as well. Pt Condition on Discharge: Stable Discharge Disposition: Discharge Home Discharge Time: > 30 minutes Discharge Instructions DIET: Follow Instructions for: Iron Rich Diet Activities you can perform: Regular-No Restrictions Follow up Referrals: Gastroenterology - 1 Week @ [facility] New Orders: BASIC METABOLIC PROF - 3-5 Days CBC NO DIFF - 3-5 Days PT/INR - 3-5 Days Continued Medications: Acarbose (Acarbose) 100 Mg Tab 100 MG PO TID for Blood Sugar Management, #90 TAB 0 Refills Take with first bite of meal. Amitriptyline (Amitriptyline) 25 Mg Tab 25 MG PO HS, #30 TAB Atorvastatin (Atorvastatin) 40 Mg Tab 40 MG PO DAILY for Cholesterol Management, #30 TAB 0 Refills Cholecalciferol (Vitamin D3) 2,000 Unit Cap 2000 UNITS PO DAILY for Nutritional Supplement, #1 BOTTLE 0 Refills Clobetasol Scalp Topical (Cormax Scalp Topical) 0.05% Soln 1 APPLIC TOPICAL BID for Rash/Inflammation, #50 ML 0 Refills Cyanocobalamin (Vitamin B12) 100 Mcg Tab 100 MCG PO DAILY, #1 BOTTLE Digoxin (Digoxin) 0.125 Mg Tab 0.125 MG PO DAILY for Regulate Heart Beat, #30 TAB 0 Refills Ferrous Sulfate (Feosol) 200 Mg Tab 200 MG PO BIDPC for Nutritional Supplement, #60 TAB 0 Refills Finasteride (Finasteride) 5 Mg Tab 5 MG PO HS for Manage Prostate Problems, #30 TAB 0 Refills Do not crush. Fluticasone Nasal Jackson (Flonase Nasal Jackson) 50 Mcg/Act Jackson 100 MCG EACH NARE BID for Allergies, #1 BOTTLE 0 Refills Gabapentin (Gabapentin) 300 Mg Cap 300 MG PO TID, #90 CAP 0 Refills Hydrocodone-Acetaminophen (Hydrocodone-Acetaminophen) 5-325 mg Tab 2 TAB PO Q6H PRN for PAIN, #30 TAB 0 Refills Insulin Glargine Inj (Lantus Inj) 1,000 Unit/10 Ml Vial 10 UNITS SQ HS for Blood Sugar Management, VIAL 0 Refills Lisinopril (Lisinopril) 20 Mg Tab 20 MG PO DAILY, #30 TAB 0 Refills Lorazepam (Lorazepam) 2 Mg Tab 2 MG PO Q6H PRN for ANXIETY, TAB 0 Refills Nebivolol (Bystolic) 10 Mg Tab 10 MG PO BID for Blood Pressure Management, #30 TAB 0 Refills Omeprazole (Omeprazole) 40 Mg Cap 40 MG PO BID, #30 CAP 0 Refills Potassium Chloride ER (Potassium Chloride ER) 20 Meq Tab 20 MEQ PO DAILY for Electrolyte Replacement, #30 TAB 0 Refills Torsemide (Torsemide) 20 Mg Tab 40 MG PO BID, #60 TAB 0 Refills Trazodone (Trazodone) 50 Mg Tab 50 MG PO HS for Control Depression, #30 TAB 0 Refills Warfarin (Warfarin) 5 Mg Tab 5 MG PO dailyhs for Blood Clot Prevention, #30 TAB 0 Refills Scott Hirsch MD May 23, 2017 16:33
== END 2017-05-23 17:26 | disposition home or self-care (01) | DRG 291 ==
LOC: NEPE 22:37 → NEDA 05-20 01:13 → HCIS 05-20 03:20
PROVIDERS: ADMIT Hospitalist; ATTEND Hospitalist
PROC: 30233N1 Transfusion of Nonautologous Red Blood Cells into Peripheral Vein, Percutaneous Approach (ICD-10-PCS; principal; 2017-05-20)
PROC: 5A09357 Assistance with Respiratory Ventilation, Less than 24 Consecutive Hours, Continuous Positive Airway Pressure (ICD-10-PCS; 2017-05-20)
PROC: 0W993ZX Drainage of Right Pleural Cavity, Percutaneous Approach, Diagnostic (ICD-10-PCS; 2017-05-23)
DX: I50.33 Acute on chronic diastolic (congestive) heart failure (principal); J96.21 Acute and chronic respiratory failure with hypoxia; N17.9 Acute kidney failure, unspecified; J90 Pleural effusion, not elsewhere classified; E11.9 Type 2 diabetes mellitus without complications; D50.0 Iron deficiency anemia secondary to blood loss (chronic); Z68.41 Body mass index [BMI] 40.0-44.9, adult; Z79.4 Long term (current) use of insulin; I10 Essential (primary) hypertension; Z99.81 Dependence on supplemental oxygen; Z95.810 Presence of automatic (implantable) cardiac defibrillator; E87.5 Hyperkalemia; F32.9 Major depressive disorder, single episode, unspecified; I48.91 Unspecified atrial fibrillation; Z79.01 Long term (current) use of anticoagulants; J44.9 Chronic obstructive pulmonary disease, unspecified; N40.0 Benign prostatic hyperplasia without lower urinary tract symptoms; F41.9 Anxiety disorder, unspecified; Z91.81 History of falling; G47.30 Sleep apnea, unspecified; E66.9 Obesity, unspecified; E78.00 Pure hypercholesterolemia, unspecified; R19.5 Other fecal abnormalities; K59.00 Constipation, unspecified; H91.90 Unspecified hearing loss, unspecified ear; Z23 Encounter for immunization; Z96.653 Presence of artificial knee joint, bilateral; Z87.891 Personal history of nicotine dependence
CPT/HCPCS: 32555; 36430; 36600; 71010; 74177; 76937; 80048; 80053; 80162; 82550; 82728; 82805; 82948; 83540; 83550; 83690; 83880; 84443; 84484; 85007; 85014; 85018; 85025; 85027; 85044; 85610; 85730; 86850; 86900; 86901; 86920; 89051; 90471; 90686; 93005; 94002; C1729; G0008; J1650; J1756; J1815; J1940; J7050; P9016; Q2038; Q9963; Q9967

== ENCOUNTER 2017-06-08 12:27 | Inpatient (IN) | payer MEDICARE ==
[~2017-06-08] VITALS: Ht 188 cm; Wt 107.2 kg
[2017-06-08] VITALS (10 sets, daily range): BP systolic 120–144; BP diastolic 59–71; PULSE 62–85; RESP 17–22; TEMP 97.6–98.3; O2SAT 94–100
--- NOTE | 2017-06-08 13:01 | PD ---
HPI Chief Complaint: Respiratory Symptoms Time Seen by Provider: 12:32 Travel History International Travel<30 days: No Contact w/Intl Traveler<30days: No Traveled to known affect area: No History of Present Illness HPI 81-year-old male came to the emergency room brought by EMS from the [facility] for sudden onset shortness of breath after iron infusion. 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 As per their note patient's oxygen saturation went down to 80%. He requires 4 L of oxygen on a regular basis. Has significant cardiac history with pacemaker. He was admitted one week ago for pleural effusion which was tapped. Patient denies any chest pain. He was given IV Solu -Medrol, IV Benadryl and albuterol during the episode. By the time EMS arrived his oxygen saturation and breathing was better. He is saturating 95% on 4 L of oxygen here as I'm talking to him and the family. Patient denies any fever or cough. PFS Past Medical History Narrative Medical List of his past medical, surgical, social and family history is reviewed from the nursing note. 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) Endocrine: Yes Gastrointestinal Disorders: Yes GERD: No Glaucoma: No Genitourinary: Yes Headaches: Yes (R/T SINUSITIS) Hepatitis: No Hiatal Hernia: Yes Hypertension: Yes Immune Disorder: No Implanted Vascular Access Dvce: Yes Kidney Stones: No Musculoskeletal: Yes Neurologic: Yes Psychiatric: Yes Reproductive: No Respiratory: Yes Integumentary: Yes Immunizations Current: No Migraines: No Radiation Therapy: No Renal Failure: No Seizures: No Sickle Cell Disease: No Sleep Apnea: Yes (CPAP AT NIGHT AT TIMES) Thyroid Disease: No Ulcer: No Past Surgical History Abdominal Surgery: Yes (HERNIA REPAIR) AICD: Yes Appendectomy: Yes Arteriovenous Shunt: No Body Medical Devices: KNEE REPLACEMENT LEFT AND RIGHT, AICD Cardiac Surgery: Yes (PACEMAKER/DEFIB) Cholecystectomy: Yes Ear Surgery: No Endocrine Surgery: No Eye Surgery: Yes (L & R EYE CATARACTS) Genitourinary Surgery: No Gynecologic Surgery: No Insulin Pump: No Joint Replacement: Yes (BILATERAL TKR) Neurologic Surgery: No Oral Surgery: No Pacemaker: Yes (REPLACED IN NOVEMBER 2016) Thoracic Surgery: No Other Surgery: Yes (pacemaker placement, herniated appendix) Social History Alcohol Use: No Tobacco Use: No Substance Use: No Allergies-Medications (Allergen,Severity, Reaction): Coded Allergies: MRI PRECAUTION (Verified Allergy, Severe, 06/08/17) Uncoded Allergies: STEROIDS (Adverse Reaction, Mild, 01/10/17) ELEVATED BLOOD SUGAR Comments List of his allergies reviewed from the nursing note. Reported Meds & Prescriptions Reported Meds & Active Scripts Active Oxygen tank (Oxygen) 1 Ea Tank 2 Liter JAKE.CANULA CONTINUOUS Oxygen Concentrator Portable Gaseous 2 L/min via Nasal Cannula Continuous For 99 months Digoxin 0.125 Mg Tab 0.125 Mg PO DAILY Reported Duoneb (Ipratropium-Albuterol Neb) 0.5-2.5 Mg/3 Ml Neb 3 Ml NEB TID Senna S (Sennosides-Docusate Sodium) 8.6-50 Mg Tab 1 Tab PO DAILY PRN Iron (Ferrous Gluconate) 240 Mg (27 Mg Iron) Tablet 27 Mg PO DAILY Tylenol (Acetaminophen) 325 Mg Tab 650 Mg PO Q6H PRN Vitamin D3 (Cholecalciferol) 5,000 Unit Cap 5,000 Units PO HS Amitriptyline (Amitriptyline HCl) 50 Mg Tab 50 Mg PO HS Acarbose 100 Mg Tab 100 Mg PO DAILY IN THE PM Take with first bite of meal. Potassium Chloride ER (Potassium Chloride) 10 Meq Tab 20 Meq PO BID Lantus Inj (Insulin Glargine) 1,000 Unit/10 Ml Vial 10 Units SQ HS Warfarin 5 Mg Tab 5 Mg PO DAILY Trazodone (Trazodone HCl) 50 Mg Tab 50 Mg PO HS Gabapentin 300 Mg Cap 300 Mg PO TID Cormax Scalp Topical (Clobetasol Propionate) 0.05% Soln 1 Applic TOPICAL BID PRN Hydrocodone-Acetaminophen 5-325 mg Tab 2 Tab PO Q6H PRN Vitamin B12 (Cyanocobalamin) 100 Mcg Tab 100 Mcg PO DAILY Lorazepam 2 Mg Tab 2 Mg PO Q6H PRN Acarbose 100 Mg Tab 200 Mg PO DAILY IN THE AM Take with first bite of meal. Omeprazole 40 Mg Cap 40 Mg PO BID Atorvastatin (Atorvastatin Calcium) 40 Mg Tab 40 Mg PO DAILY Torsemide 20 Mg Tab 40 Mg PO BID Lisinopril 20 Mg Tab 20 Mg PO DAILY Bystolic (Nebivolol) 10 Mg Tab 10 Mg PO BID Finasteride 5 Mg Tab 5 Mg PO HS Do not crush. Narrative Medication List of his home medications reviewed from the nursing note. Review of Systems Except as stated in HPI: all other systems reviewed are Neg Physical Exam Narrative GENERAL: Awake, alert, elderly, frail, moderate distress SKIN: Focused skin assessment warm/dry. Pale HEAD: Atraumatic. Normocephalic. EYES: Pupils equal and round. No scleral icterus. No injection or drainage. ENT: No nasal bleeding or discharge. Mucous membranes pink and moist. NECK: Trachea midline. No JVD. CARDIOVASCULAR: Regular rate and rhythm. No murmur appreciated. RESPIRATORY: No accessory muscle use. Coarse crackles bilaterally all the way up to the apex. GASTROINTESTINAL: Abdomen soft, non-tender, nondistended. Hepatic and splenic margins not palpable. MUSCULOSKELETAL: No obvious deformities. No clubbing. No cyanosis. No edema. NEUROLOGICAL: Awake and alert. No obvious cranial nerve deficits. Motor grossly within normal limits. Normal speech. PSYCHIATRIC: Appropriate mood and affect; insight and judgment normal. Data Data Last Documented VS Vital Signs Date Time Temp Pulse Resp B/P (MAP) Pulse Ox O2 Delivery O2 Flow Rate FiO2 06/08/17 14:03 85 138/63 (88) 94 Nasal Cannula 4.00 120/59 (79) 06/08/17 12:39 22 06/08/17 12:32 98.3 Orders Orders Electrocardiogram (06/08/17 ) Chest, Single Ap (06/08/17 ) Basic Metabolic Panel (Bmp) (06/08/17 13:52) B-Type Natriuretic Peptide (06/08/17 13:52) Ckmb (Isoenzyme) Profile (06/08/17 13:52) Complete Blood Count With Diff (06/08/17 13:52) Magnesium (Mg) (06/08/17 13:52) Prothrombin Time / Inr (Pt) (06/08/17 13:52) Act Partial Throm Time (Ptt) (06/08/17 13:52) Troponin I (06/08/17 13:52) Ecg Monitoring (06/08/17 13:52) Bilateral Bp Monitoring (06/08/17 13:52) Iv Access Insert/Monitor (06/08/17 13:52) Oximetry (06/08/17 13:52) Oxygen Administration (06/08/17 13:52) Sodium Chloride 0.9% Flush (Ns Flush) (06/08/17 14:00) Furosemide Inj (Lasix Inj) (06/08/17 14:00) Admit Order (Ed Use Only) (06/08/17 15:45) Labs Laboratory Tests Test 06/08/17 12:50 White Blood Count 5.0 TH/MM3 Red Blood Count 3.94 MIL/MM3 Hemoglobin 9.8 GM/DL Hematocrit 32.5 % Mean Corpuscular Volume 82.5 FL Mean Corpuscular Hemoglobin 24.8 PG Mean Corpuscular Hemoglobin Concent 30.0 % Red Cell Distribution Width 20.8 % Platelet Count 411 TH/MM3 Mean Platelet Volume 8.3 FL Neutrophils (%) (Auto) 92.4 % Lymphocytes (%) (Auto) 2.4 % Monocytes (%) (Auto) 1.9 % Eosinophils (%) (Auto) 1.7 % Basophils (%) (Auto) 1.6 % Neutrophils # (Auto) 4.6 TH/MM3 Lymphocytes # (Auto) 0.1 TH/MM3 Monocytes # (Auto) 0.1 TH/MM3 Eosinophils # (Auto) 0.1 TH/MM3 Basophils # (Auto) 0.1 TH/MM3 CBC Comment DIFF FINAL Differential Comment Prothrombin Time 19.6 SEC Prothromb Time International Ratio 1.7 RATIO Activated Partial Thromboplast Time 33.1 SEC Blood Urea Nitrogen 28 MG/DL Creatinine 1.36 MG/DL Random Glucose 157 MG/DL Calcium Level 8.6 MG/DL Magnesium Level 2.0 MG/DL Sodium Level 139 MEQ/L Potassium Level 4.9 MEQ/L Chloride Level 98 MEQ/L Carbon Dioxide Level 38.0 MEQ/L Anion Gap 3 MEQ/L Estimat Glomerular Filtration Rate 50 ML/MIN Total Creatine Kinase 32 U/L Troponin I 0.03 NG/ML B-Type Natriuretic Peptide 355 PG/ML MDM Medical Decision Making Medical Screen Exam Complete: Yes Emergency Medical Condition: Yes Medical Record Reviewed: Yes Interpretation(s) Twelve-lead EKG was reviewed by me. Paced rhythm. Heart rate of 69 bpm. Differential Diagnosis Congestive heart failure, pleural effusion, pneumonia Narrative Course 3:50 PM blood test results are back. Patient is anemic by hemoglobin seems improved. Chest x-ray suggestive of moderate congestive heart failure. I've given the patient 60 mg of IV Lasix. Patient is on torsemide twice a day at home. At this point I would like to admit him. I explained my concern to the patient when initially wanted to go home but now has agreed to stay. IV have spoken with the hospitalist who is excepted the patient. Procedures EKG Prior to Arrival: No Diagnosis Primary Impression: Respiratory distress Additional Impression: Congestive heart failure Qualified Codes: I50.9 - Heart failure, unspecified Admitting Information Admitting Physician Requests: Krystle Gregory MD Jun 08, 2017 13:01
[2017-06-08] MEDS ORDERED: POTA10TA2 PO (13:25)
[2017-06-08] MEDS ORDERED: ACAR100T PO (13:25)
[2017-06-08] MEDS ORDERED: AMIT50TA3 PO (13:25)
[2017-06-08] MEDS ORDERED: FERR240T8 PO (13:25)
[2017-06-08] MEDS ORDERED: TYLE325T PO (13:25)
[2017-06-08] MEDS ORDERED: IPRASOL NEB (13:25)
[2017-06-08] MEDS ORDERED: CHOL5000 PO (13:25)
[2017-06-08] MEDS ORDERED: SENN8.6T8 PO (13:25)
[2017-06-08] MEDS ORDERED: FUROSEMIDE 20 MG/2 ML VIAL IV PUSH ONE (14:00)
[2017-06-08] MEDS ORDERED: SODIUM CHLORIDE 0.9% FLUSH 10 ML FLUSH IVF PRN (14:00)
--- NOTE | 2017-06-08 14:09 | RADRPT ---
EXAM DATE/TIME: 06/08/2017 13:32 [facility] COMPARISON: CHEST SINGLE AP, May 22, 2017, 19:12. INDICATIONS : Short of breath, hot flash MEDICAL HISTORY : Chronic obstructive pulmonary disease. SURGICAL HISTORY : Pacemaker. ENCOUNTER: Initial ACUITY: 1 day PAIN SCORE: 0/10 LOCATION: Bilateral chest FINDINGS: Pacemaker implanted on the left. Cardiomegaly with moderate interstitial edema and bibasilar parench ymal changes. There is no pneumothorax. CONCLUSION: Moderate congestive failure.. Virgil Melendez MD FACR on June 08, 2017 at 14:03 Board Certified Radiologist. This report was verified electronically.
[2017-06-08 14:46] LABS: AUTOMATED NEUTROPHIL # 4.6 TH/MM3 (1.8-7.7); BASOPHIL # 0.1 TH/MM3 (0-0.2); BASOPHIL % 1.6 % (0.0-2.0); EOSINOPHIL # 0.1 TH/MM3 (0-0.4); EOSINOPHIL % 1.7 % (0.0-4.0); HEMATOCRIT 32.5 % (39.0-51.0); HEMO FLAGS DIFF FINAL; LYMPH % 2.4 % (9.0-44.0); LYMPHOCYTE # 0.1 TH/MM3 (1.0-4.8); MEAN CELL VOLUME 82.5 FL (80.0-100.0); MEAN CORPUSCULAR HEMOGLOBIN 24.8 PG (27.0-34.0); MONO % 1.9 % (0.0-8.0); NEUT % 92.4 % (16.0-70.0); PLATELET COUNT 411 TH/MM3 (150-450); RED BLOOD COUNT 3.94 MIL/MM3 (4.50-5.90); RED CELL DISTRIBUTION WIDTH 20.8 % (11.6-17.2)
[2017-06-08 14:56] LABS: APTT (PATIENT) 33.1 SEC (24.3-30.1); INTERNATIONAL NORMALIZED RATIO 1.7 RATIO; PROTHROMBIN TIME - PATIENT 19.6 SEC (9.8-11.6)
[2017-06-08 15:15] LABS: POTASSIUM 4.9 MEQ/L (3.5-5.1)
--- NOTE | 2017-06-08 17:12 | HHI.HP ---
HPI Service [facility] Primary Care Physician Phyllis Moran MD Admission Diagnosis respiratory distress, congestive heart failure Diagnoses: Chief Complaint: Acute shortness of breath Travel History International Travel<30 Days: No Contact w/Intl Traveler <30 Da: No Traveled to Known Affected Are: No History of Present Illness Written by Carol Melgar, acting as scribe for Dr. Perez on 06/08/17 at 17 :12. Patient is an 81-year-old male with primary medical history of DM 2, COPD on 4 L home O2, A. fib on Coumadin, diastolic CHF, iron deficiency anemia who came in to the hospital for SOB during iron IV transfusion. As per review of records , it was noted that the patient's oxygen saturation was 80% on his usually required 4 L nasal cannula. He was given IV Solu-Medrol, IV Benadryl and albuterol during the episode. He was seen in the ED would improve saturation of 94-96% on 4 L nasal cannula. Patient seen and examined. States that he had so many problems that has been going on. Reports he had left lower extremity edema that has been an ongoing problem for him. He reports also that the right lower extremity gets swollen, and it alternates with a left lower extremity. Patient also showed that he has some penile and scrotal edema. States that he has been seeing Dr. Colon, and was told that his heart is the cause of most of his shortness of breath. Patient also reports that he had fluid removal done on his right lung yesterday at the hospital. Denies pain and discomfort. Denies chest pain, palpitations, headaches, dizziness. Denies fevers, chills, n/v/d. Denies dysuria. Denies cough but states that he coughs after eating. Denies orthopnea Review of Systems Except as stated in HPI: all other systems reviewed are Neg Past Family Social History Past Medical History Pulled from EMR, as instructed by David DM COPD on home o2 $L Afib on Coumadin anxiety depression Diastolic CHF HTN Sleep apnea Enlarged prostate Past Surgical History Pacemaker/AICD Appendectomy Cholecystectomy Bilateral knee replacement Hernia repair Reported Medications Reported Meds & Active Scripts Active Oxygen tank (Oxygen) 1 Ea Tank 2 Liter JAKE.CANULA CONTINUOUS Oxygen Concentrator Portable Gaseous 2 L/min via Nasal Cannula Continuous For 99 months Digoxin 0.125 Mg Tab 0.125 Mg PO DAILY Reported Duoneb (Ipratropium-Albuterol Neb) 0.5-2.5 Mg/3 Ml Neb 3 Ml NEB TID Senna S (Sennosides-Docusate Sodium) 8.6-50 Mg Tab 1 Tab PO DAILY PRN Iron (Ferrous Gluconate) 240 Mg (27 Mg Iron) Tablet 27 Mg PO DAILY Tylenol (Acetaminophen) 325 Mg Tab 650 Mg PO Q6H PRN Vitamin D3 (Cholecalciferol) 5,000 Unit Cap 5,000 Units PO HS Amitriptyline (Amitriptyline HCl) 50 Mg Tab 50 Mg PO HS Acarbose 100 Mg Tab 100 Mg PO DAILY IN THE PM Take with first bite of meal. Potassium Chloride ER (Potassium Chloride) 10 Meq Tab 20 Meq PO BID Lantus Inj (Insulin Glargine) 1,000 Unit/10 Ml Vial 10 Units SQ HS Warfarin 5 Mg Tab 5 Mg PO DAILY Trazodone (Trazodone HCl) 50 Mg Tab 50 Mg PO HS Gabapentin 300 Mg Cap 300 Mg PO TID Cormax Scalp Topical (Clobetasol Propionate) 0.05% Soln 1 Applic TOPICAL BID PRN Hydrocodone-Acetaminophen 5-325 mg Tab 2 Tab PO Q6H PRN Vitamin B12 (Cyanocobalamin) 100 Mcg Tab 100 Mcg PO DAILY Lorazepam 2 Mg Tab 2 Mg PO Q6H PRN Acarbose 100 Mg Tab 200 Mg PO DAILY IN THE AM Take with first bite of meal. Omeprazole 40 Mg Cap 40 Mg PO BID Atorvastatin (Atorvastatin Calcium) 40 Mg Tab 40 Mg PO DAILY Torsemide 20 Mg Tab 40 Mg PO BID Lisinopril 20 Mg Tab 20 Mg PO DAILY Bystolic (Nebivolol) 10 Mg Tab 10 Mg PO BID Finasteride 5 Mg Tab 5 Mg PO HS Do not crush. Allergies: Coded Allergies: MRI PRECAUTION (Verified Allergy, Severe, 06/08/17) Uncoded Allergies: STEROIDS (Adverse Reaction, Mild, 01/10/17) ELEVATED BLOOD SUGAR Active Ordered Medications Current Medications Medications (Trade) Dose Ordered Sig/Faviola Route Start Time Stop Time Status Last Admin (NS Flush) 2 ml UNSCH PRN IVF 06/08/17 14:00 06/08/17 14:13 Family History Significant family history of cancer Social History Denies alcohol use Quit smoking in 2011 Denies illicit drug use Physical Exam Vital Signs Vital Signs Date Time Temp Pulse Resp B/P (MAP) Pulse Ox O2 Delivery O2 Flow Rate FiO2 06/08/17 17:07 69 18 144/71 (95) 95 Nasal Cannula 4.00 06/08/17 14:03 85 138/63 (88) 94 Nasal Cannula 4.00 120/59 (79) 06/08/17 14:00 68 22 138/63 (88) 95 Nasal Cannula 4.00 06/08/17 13:58 95 Nasal Cannula 4.00 06/08/17 13:58 95 Nasal Cannula 4.00 06/08/17 12:39 22 100 Aerosol Mask 06/08/17 12:39 69 129/61 (83) 100 Aerosol Mask 06/08/17 12:32 98.3 71 22 129/61 (83) 98 Physical Exam GENERAL: This is a well-nourished, well-developed patient, mildly short of breath. SKIN: Warm and dry. RLE pink discoloration, LLE mild pink discoloration. HEAD: Atraumatic. Normocephalic. No temporal or scalp tenderness. EYES: Pupils equal round and reactive. Extraocular motions intact. No scleral icterus. No injection or drainage. ENT: Nose without bleeding. Throat without erythema. Uvula midline. Airway patent. NECK: Trachea midline. Supple. CARDIOVASCULAR: Regular rate and rhythm with systolic 2/6 murmurs, gallops, or rubs. RESPIRATORY: Right base crackles. GASTROINTESTINAL: Abdomen soft, non-tender, nondistended. Bowel sounds active 4. MUSCULOSKELETAL: Extremities without clubbing, cyanosis. Right lower extremity edema +2. Left lower extremity edema +4. NEUROLOGICAL: Awake and alert. Motor and sensory grossly within normal limits. Normal speech. Laboratory Laboratory Tests Test 06/08/17 12:50 White Blood Count 5.0 Red Blood Count 3.94 Hemoglobin 9.8 Hematocrit 32.5 Mean Corpuscular Volume 82.5 Mean Corpuscular Hemoglobin 24.8 Mean Corpuscular Hemoglobin Concent 30.0 Red Cell Distribution Width 20.8 Platelet Count 411 Mean Platelet Volume 8.3 Neutrophils (%) (Auto) 92.4 Lymphocytes (%) (Auto) 2.4 Monocytes (%) (Auto) 1.9 Eosinophils (%) (Auto) 1.7 Basophils (%) (Auto) 1.6 Neutrophils # (Auto) 4.6 Lymphocytes # (Auto) 0.1 Monocytes # (Auto) 0.1 Eosinophils # (Auto) 0.1 Basophils # (Auto) 0.1 CBC Comment DIFF FINAL Differential Comment Prothrombin Time 19.6 Prothromb Time International Ratio 1.7 Activated Partial Thromboplast Time 33.1 Blood Urea Nitrogen 28 Creatinine 1.36 Random Glucose 157 Calcium Level 8.6 Magnesium Level 2.0 Sodium Level 139 Potassium Level 4.9 Chloride Level 98 Carbon Dioxide Level 38.0 Anion Gap 3 Estimat Glomerular Filtration Rate 50 Total Creatine Kinase 32 Troponin I 0.03 B-Type Natriuretic Peptide 355 Result Diagram: 06/08/17 1250 06/08/17 1250 Imaging Last Impressions Chest X-Ray 06/08/17 0000 Signed Impressions: Service Date/Time: Thursday, June 08, 2017 13:32 - CONCLUSION: Moderate congestive failure.. Virgil Melendez MD FACR Caprini VTE Risk Assessment Caprini VTE Risk Assessment: Mod/High Risk (score >= 2) Caprini Risk Assessment Model Point Value = 1 Point Value = 2 Point Value = 3 Point Value = 5 Age 41-60 Minor surgery BMI > 25 kg/m2 Swollen legs Varicose veins or History of unexplained or recurrent spontaneous Oral contraceptives or hormone replacement Sepsis (< 1 month) Serious lung disease, including pneumonia (< 1 month) Abnormal pulmonary function Acute myocardial infarction Congestive heart failure (< 1 month) History of inflammatory bowel disease Medical patient at bed rest Age 61-74 Arthroscopic surgery Major open surgery (> 45 min) Laparoscopic surgery (> 45 min) Malignancy Confined to bed (> 72 hours) Immobilizing plaster cast Central venous access Age >= 75 History of VTE Family history of VTE Factor V Leiden Prothrombin [id number] Lupus anticoagulant Anticardiolipin antibodies Elevated serum homocysteine Heparin-induced thrombocytopenia Other congenital or acquired thrombophilia Stroke (< 1 month) Elective arthroplasty Hip, pelvis, or leg fracture Acute spinal cord injury (< 1 month) Prophylaxis Regimen Total Risk Factor Score Risk Level Prophylaxis Regimen 0-1 Low Early ambulation 2 Moderate Order ONE of the following: *Sequential Compression Device (SCD) *Heparin 5000 units SQ BID 3-4 Higher Order ONE of the following medications: *Heparin 5000 units SQ TID *Enoxaparin/Lovenox 40 mg SQ daily (WT < 150 kg, CrCl > 30 mL/min) *Enoxaparin/Lovenox 30 mg SQ daily (WT < 150 kg, CrCl > 10-29 mL/min) *Enoxaparin/Lovenox 30 mg SQ BID (WT < 150 kg, CrCl > 30 mL/min) AND/OR *Sequential Compression Device (SCD) 5 or more Highest Order ONE of the following medications: *Heparin 5000 units SQ TID (Preferred with Epidurals) *Enoxaparin/Lovenox 40 mg SQ daily (WT < 150 kg, CrCl > 30 mL/min) *Enoxaparin/Lovenox 30 mg SQ daily (WT < 150 kg, CrCl > 10-29 mL/min) *Enoxaparin/Lovenox 30 mg SQ BID (WT < 150 kg, CrCl > 30 mL/min) AND *Sequential Compression Device (SCD) Assessment and Plan Problem List: (1) DM type 2 causing CKD stage 3 ICD Code: E11.22 - Type 2 diabetes mellitus with diabetic chronic kidney disease; N18.3 - Chronic kidney disease, stage 3 (moderate) (2) Respiratory distress ICD Code: R06.00 - Dyspnea, unspecified Status: Acute (3) Pleural effusion ICD Code: J90 - Pleural effusion, not elsewhere classified Status: Acute (4) Acute respiratory failure ICD Code: J96.00 - Acute respiratory failure, unspecified whether with hypoxia or hypercapnia Status: Chronic (5) Iron deficiency anemia ICD Code: D50.9 - Iron deficiency anemia, unspecified (6) Diastolic CHF, acute on chronic ICD Code: I50.33 - Diastolic CHF, acute on chronic Status: Acute (7) A-fib ICD Code: I48.91 - Unspecified atrial fibrillation Status: Chronic (8) Anxiety ICD Code: F41.1 - Anxiety Status: Chronic Assessment and Plan Patient is an 81-year-old male with primary medical history of DM 2, COPD on 4 L home O2, A. fib on Coumadin, diastolic CHF, iron deficiency anemia who came in to the hospital for SOB during iron IV transfusion. Acute hypoxic respiratory Failure Acute CHF exacerbation on chronic diastolic CHF - BNP 355, Patient with hypoxia 80% on 4L nc - Patient was given Benadryl, Solu-Medrol, Lasix during acute exacerbation. - 01/10/17 Echo showed LVH, EF 55%, repeat 2-D echo limited - EKG reviewed by me, paced rhythm - Chest x-ray image reviewed by me, showed moderate congestive heart failure - CT pulmonary angiogram ordered - Lasix 40 mg IV twice a day, duo nebs - Continue O2 nasal cannula 4 L/m, maintain O2 sat greater than 90% - Strict I & O - Follow up labs in a.m. Rule out PE Left lower extremity edema - CT pulmonary angiogram ordered - Lower extremity Doppler ordered - Lasix IV as above Acute Kidney injury, on chronic kidney disease stage III - baseline 1.1 -1.3, - Creatinine 1.36 - Avoid nephrotoxins - Trend renal indicis DM, chronic with hyperglycemia - Accu checks with SSI - Resume home Levemir 10units HS. Acarbose A. fib, chronic Chronic anticoagulation with Coumadin HTN, chronic HLD, chronic - INR 1.7 - Continue Coumadin. Monitor INR - Continue digoxin, nevibolol, lisinopril - Monitor BP trend, HR trend Iron deficiency anemia, Chronic - Received IV iron transfusion - Monitor H&H DVT prop Coumadin Code Status Full code Discussed Condition With Patient, nursing, ED attending Physician Certification 2 Midnight Certification Type: Admission for Inpatient Services Order for Inpatient Services The services are ordered in accordance with Medicare regulations or non- Medicare payer requirements, as applicable. In the case of services not specified as inpatient-only, they are appropriately provided as inpatient services in accordance with the 2-midnight benchmark. Estimated LOS (days): 2 days is the estimated time the patient will need to remain in the hospital, assuming treatment plan goals are met and no additional complications. Post-Hospital Plan: Home Carol Galvez Jun 08, 2017 17:12 Daren Alcocer MD Jun 08, 2017 17:13
[2017-06-08] MEDS ORDERED: SODIUM CHLORIDE 0.9% FLUSH 10 ML FLUSH IV FLUSH PRN (17:15)
[2017-06-08] MEDS ORDERED: ACETAMINOPHEN/HYDROcodone 325 MG/5 MG TAB PO PRN (17:30)
[2017-06-08] MEDS ORDERED: RESP: ALBUTEROL 2.5 MG/IPRATROPIUM 0.5 MG NEB (PRN) NEB (17:30)
[2017-06-08] MEDS ORDERED: DOCUSATE SODIUM 50 MG/SENNA 8.6 MG TAB PO PRN (17:30)
[2017-06-08] MEDS ORDERED: ACETAMINOPHEN 325 MG TAB PO PRN (17:30)
[2017-06-08] MEDS ORDERED: DEXTROSE 50% IN WATER 50 ML VIAL(D50) IV PUSH PRN (18:00)
[2017-06-08] MEDS ORDERED: GLUCAGON 1 MG/ML VIAL OTHER PRN (18:00)
[2017-06-08] MEDS ORDERED: IOHEXOL 350 MG/ML 10 ML VIAL (for RAD DIAG) IVCONTRAST ONE (18:14)
--- NOTE | 2017-06-08 18:28 | RADRPT ---
EXAM DATE/TIME: 06/08/2017 18:11 [facility] COMPARISON: US GUIDED THORACENTESIS RIGHT, May 23, 2017, 12:56. CT ABDOMEN & PELVIS W CONTRAST, May 22, 2017, 18:24. CHEST SINGLE AP, June 08, 2017, 13:32. INDICATIONS : Short of breath, embolism. IV CONTRAST: 74 cc Omnipaque 350 (iohexol) IV RADIATION DOSE: 23.50 CTDIvol (mGy) MEDICAL HISTORY : Cardiovascular disease. Hypertension. Chronic obstructive pulmonary disease. SURGICAL HISTORY : Pacemaker. Appendectomy.Cholecystectomy. ENCOUNTER: Initial ACUITY: 1 day PAIN SCALE: 3/10 LOCATION: Bilateral chest TECHNIQUE: Volumetric scanning of the chest was performed using a pulmonary embolism protocol MIP images were re constructed. Using automated exposure control and adjustment of the mA and/or kV according to patien t size, radiation dose was kept as low as reasonably achievable to obtain optimal diagnostic quality images. DICOM format image data is available electronically for review and comparison. Follow-up recommendations for detected pulmonary nodules are based at a minimum on nodule size and pa tient risk factors according to Fleischner Society Guidelines. FINDINGS: PULMONARY ARTERIES: No filling defects are seen in the pulmonary arteries through the segmental level. LUNGS: Right lung base posteriorly reveals compressive atelectasis the lower lobe and there is small area co nsolidated infiltrate in the left lower lobe posterior basilar segment. PLEURAE: Small to moderate size layering posterior right pleural effusion minimal left pleural effusion MEDIASTINUM: There is good visualization of the great vessels of the middle mediastinum. No evidence of mediastin al or hilar adenopathy/mass. Atherosclerotic vascular calcifications in the aorta and coronary artery calcifications. Borderline left ventricular cardiomegaly. MUSCULOSKELETAL: Within normal limits for patient age. MISCELLANEOUS: The visualized upper abdominal organs demonstrate no acute abnormality. Pacemaker AICD device overlyi ng the left hemithorax CONCLUSION: Negative for pulmonary embolization. Small amount of size right pleural effusion and a minimal left pleural effusion. Consolidated density in the left lower lobe posterior basilar segmen t and compressive atelectasis in the right lower lobe adjacent to the effusion. Negative for pulmonar y embolism Judson Canas MD on June 08, 2017 at 18:20 Board Certified Radiologist. This report was verified electronically.
--- NOTE | 2017-06-08 19:22 | RADRPT ---
EXAM DATE/TIME: 06/08/2017 18:56 [facility] COMPARISON: CT PULMONARY ANGIOGRAM, June 08, 2017, 18:11. INDICATIONS : Left leg edema. MEDICAL HISTORY : Hypercholesterolemia. Hypertension. Chronic obstructive pulmonary disease. Congestive heart failur e. Atrial fibrillation. Hernia, hiatal. Arthritis. Diabetes. SURGICAL HISTORY : Appendectomy. Cholecystectomy. Bilateral cataract surgery. Pacemaker. Hiatal hernia repair. Bila teral knee replacement. ENCOUNTER: Initial ACUITY: 2 day PAIN SCORE: 6/10 LOCATION: Left leg. TECHNIQUE: Venous ultrasound of the leg was performed from the inguinal ligament to the proximal calf. Real-tamiko e, color Doppler and spectral tracing, compression and augmentation techniques were used. FINDINGS: There is normal compressibility of the deep venous system from the inguinal region to the proximal ca lf. No echogenic clot is seen in the lumen of the common femoral, femoral, popliteal, and posterior tibial veins. There is a normal response of the venous system to proximal and distal augmentation an d respiration. CONCLUSION: Normal examination. No evidence of DVT Judson Canas MD on June 08, 2017 at 19:19 Board Certified Radiologist. This report was verified electronically.
[2017-06-08] MEDS: RESP: ALBUTEROL 2.5 MG/IPRATROPIUM 0.5 MG NEB (SCH) NEB (19:51)
[2017-06-08] MEDS: FUROSEMIDE 40 MG/4 ML VIAL IVP SCH (20:03)
[2017-06-08] MEDS: GABAPENTIN 300 MG CAP PO SCH (20:04)
[2017-06-08] MEDS: WARFARIN SOD 5 MG TAB PO SCH (20:04)
[2017-06-08] MEDS ORDERED: [UNRECOGNIZED DRUG - OTHER] TOPICAL PRN (20:30)
[2017-06-08] MEDS: SODIUM CHLORIDE 0.9% FLUSH 10 ML FLUSH IV FLUSH SCH (21:00)
[2017-06-08] MEDS: FINASTERIDE 5 MG TAB PO SCH (23:08)
[2017-06-08] MEDS: CHOLECALCIFEROL (VIT D3) 5000 UNIT CAP PO SCH (23:08)
[2017-06-08] MEDS: NEBIVOLOL 10 MG TAB PO SCH (23:08)
[2017-06-08] MEDS: AMITRIPTYLINE HCL 50 MG TAB PO SCH (23:08)
[2017-06-08] MEDS: traZODone HCL 50 MG TAB PO SCH (23:08)
[2017-06-08] MEDS: INSULIN ASPART SUPPLEMENTAL SCALE SQ SCH (23:08)
[2017-06-08] MEDS: INSULIN DETEMIR 100 UNITS/ML VIAL SQ SCH (23:09)
[2017-06-09] VITALS (8 sets, daily range): BP systolic 104–138; BP diastolic 51–64; PULSE 68–73; RESP 16–20; TEMP 97.2–97.9; O2SAT 95–100
[2017-06-09 04:18] LABS: BICARBONATE 37.6 MEQ/L (21.0-32.0); POTASSIUM 5.4 MEQ/L (3.5-5.1)
[2017-06-09] MEDS: LORazepam 2 MG TAB PO PRN ×2 (05:22→12:29)
[2017-06-09] MEDS: PANTOPRAZOLE SOD 40 MG DELAYED RELEASE TAB PO SCH ×2 (05:22→17:02)
[2017-06-09] MEDS ORDERED: ACARBOSE PO SCH (08:00)
[2017-06-09] MEDS: GABAPENTIN 300 MG CAP PO SCH ×3 (09:03→17:01)
[2017-06-09] MEDS: DIGOXIN 0.125 MG TAB PO SCH (09:03)
[2017-06-09] MEDS: ATORVASTATIN 40 MG TAB PO SCH (09:03)
[2017-06-09] MEDS: NEBIVOLOL 10 MG TAB PO SCH ×2 (09:03→21:17)
[2017-06-09] MEDS: LISINOPRIL 20 MG TAB PO SCH (09:03)
[2017-06-09] MEDS: CYANOCOBALAMIN 100 MCG TAB PO SCH (09:03)
[2017-06-09] MEDS: SODIUM CHLORIDE 0.9% FLUSH 10 ML FLUSH IV FLUSH SCH ×2 (09:04→21:00)
[2017-06-09] MEDS: FUROSEMIDE 40 MG/4 ML VIAL IVP SCH ×2 (09:04→17:01)
[2017-06-09] MEDS: INSULIN ASPART SUPPLEMENTAL SCALE SQ SCH ×4 (09:05→22:09)
--- NOTE | 2017-06-09 12:51 | EKG ---
Date Performed: 06/08/2017 Time Performed: 12:42:33 PTAGE: 81 years EKG: Sinus rhythm with P-wave synchronous ventricular pacing PREVIOUS TRACING : 06/08/2017 12.41 The old tracing had no visible P-waves, so there may be a change in the underlying atrial rhythm. Clinical correlation needed regarding how the pacemaker is programmed and set up. DOCTOR: Marco Antonio Duron Interpretating Date/Time 06/09/2017 12:50:24
[2017-06-09] MEDS: RESP: ALBUTEROL 2.5 MG/IPRATROPIUM 0.5 MG NEB (SCH) NEB ×2 (13:01→20:00)
--- NOTE | 2017-06-09 13:27 | HHI.PR ---
Subjective Remarks Patient reports is feeling better. Breathing comfortably. Objective Vitals Vital Signs Date Time Temp Pulse Resp B/P (MAP) Pulse Ox O2 Delivery O2 Flow Rate FiO2 06/09/17 08:00 97.5 70 18 138/64 (88) 96 06/09/17 07:28 97 Nasal Cannula 4.00 06/09/17 04:00 97.6 73 16 104/54 (71) 96 06/09/17 00:00 97.9 71 17 123/58 (79) 96 06/08/17 20:54 97.6 70 17 121/60 (80) 94 06/08/17 20:42 144/65 (91) 98 Nasal Cannula 5.00 06/08/17 19:40 100 Nasal Cannula 5.00 06/08/17 19:21 62 20 134/63 (86) 98 Nasal Cannula 5.00 06/08/17 19:21 98 Nasal Cannula 5.00 06/08/17 17:07 69 18 144/71 (95) 95 Nasal Cannula 4.00 06/08/17 14:03 85 138/63 (88) 94 Nasal Cannula 4.00 120/59 (79) 06/08/17 14:00 68 22 138/63 (88) 95 Nasal Cannula 4.00 06/08/17 13:58 95 Nasal Cannula 4.00 06/08/17 13:58 95 Nasal Cannula 4.00 I/O 06/08/17 06/08/17 06/08/17 06/09/17 06/09/17 06/09/17 07:00 15:00 23:00 07:00 15:00 23:00 Intake Total 360 ml Output Total 350 ml 600 ml 300 ml Balance -350 ml -600 ml 60 ml Intake Oral 360 ml Output Urine Total 350 ml 600 ml 300 ml # Voids 1 1 Result Diagram: 06/08/17 1250 06/09/17 0334 Objective Remarks GENERAL: This is a well-nourished, well-developed patient in no acute distress. CARDIOVASCULAR: Regular rate and rhythm with systolic 2/6 murmurs, gallops, or rubs. RESPIRATORY: Faint bibasilar crackles. GASTROINTESTINAL: Abdomen soft, non-tender, nondistended. Bowel sounds active 4. MUSCULOSKELETAL: Extremities without clubbing, cyanosis. 2+ Juan C LE edema. NEUROLOGICAL: Awake and alert. Motor and sensory grossly within normal limits. Normal speech. A/P Problem List: (1) DM type 2 causing CKD stage 3 ICD Code: E11.22 - Type 2 diabetes mellitus with diabetic chronic kidney disease; N18.3 - Chronic kidney disease, stage 3 (moderate) (2) Respiratory distress ICD Code: R06.00 - Dyspnea, unspecified Status: Acute (3) Pleural effusion ICD Code: J90 - Pleural effusion, not elsewhere classified Status: Acute (4) Acute respiratory failure ICD Code: J96.00 - Acute respiratory failure, unspecified whether with hypoxia or hypercapnia Status: Chronic (5) Iron deficiency anemia ICD Code: D50.9 - Iron deficiency anemia, unspecified (6) Diastolic CHF, acute on chronic ICD Code: I50.33 - Diastolic CHF, acute on chronic Status: Acute (7) A-fib ICD Code: I48.91 - Unspecified atrial fibrillation Status: Chronic (8) Anxiety ICD Code: F41.1 - Anxiety Status: Chronic Assessment and Plan 81-year-old male with primary medical history of DM 2, COPD on 4 L home O2, A. fib on Coumadin, diastolic CHF, iron deficiency anemia who came in to the hospital for SOB during iron IV transfusion. Acute hypoxic respiratory Failure Acute CHF exacerbation on chronic diastolic CHF - BNP 355, Patient with hypoxia 80% on 4L nc - Patient was given Benadryl, Solu-Medrol, Lasix during acute exacerbation. - 01/10/17 Echo showed LVH, EF 55%, repeat 2-D echo limited essentially unchanged - Continue Lasix 40 mg IV twice a day, duo nebs - Continue O2 nasal cannula 4 L/m, maintain O2 sat greater than 90% - Strict I & O - Improving. Rule out PE Left lower extremity edema - CT pulmonary angiogram neg for PE. - Lower extremity Doppler negative - Lasix IV as above Acute Kidney injury, on chronic kidney disease stage III - baseline 1.1 -1.3, - Creatinine 1.5. Likely secondary to CHF exacerbation as above. - Avoid nephrotoxins - Trend renal functions - If no improvement call Nephrology. Hyperkalemia: Expect improvement with Lasix. Give a dose of Kayexalate. Repeat K. DM, chronic with hyperglycemia - Accu checks with SSI - Resume home Levemir 10units HS. Acarbose A. fib, chronic Chronic anticoagulation with Coumadin HTN, chronic HLD, chronic - INR 1.7 - Continue Coumadin. Monitor INR - Continue digoxin, nevibolol, lisinopril - Monitor BP trend, HR trend Iron deficiency anemia, Chronic - Received IV iron transfusion - Monitor H&H DVT prop Coumadin Claude Rivas MD Jun 09, 2017 13:27
[2017-06-09] MEDS ORDERED: SODIUM POLYSTYRENE SULFONATE SUSP 15 GM/60 ML CUP PO ONE (13:30)
[2017-06-09] MEDS ORDERED: ACARBOSE 100 MG PO SCH (17:00)
[2017-06-09] MEDS: WARFARIN SOD 5 MG TAB PO SCH (17:02)
--- NOTE | 2017-06-09 17:51 | ECHRPT ---
Indication: Heart failure, unspecified CONCLUSIONS The left ventricular systolic function is normal with an estimated ejection fraction in the range of 55-60%. Mild concentric left ventricular hypertrophy. Normal left ventricular size. A pacemaker wire is noted. The right ventricle is moderately dilated. The right ventricular systoilc function is moderately decreased. The right atrial size is moderately dilated. There is moderate tricuspid regurgitation. The estimated pulmonary arterial pressure is 60.1 mmHg. BP: 104 / 54 HR: 73 Rhythm: Other MEASUREMENTS (Male / Female) Normal Values Technical Quality:Fair 2D ECHO LV Diastolic Diameter PLAX 5.7 cm 4.2 - 5.9 / 3.9 - 5.3 cm LV Systolic Diameter PLAX 4.2 cm IVS Diastolic Thickness 1.6 cm 0.6 - 1.0 / 0.6 - 0.9 cm LVPW Diastolic Thickness 1.5 cm 0.6 - 1.0 / 0.6 - 0.9 cm LV Relative Wall Thickness 0.6 LVOT Diameter 2.1 cm M-MODE Aortic Root Diameter MM 3.2 cm LA Systolic Diameter MM 5.9 cm LA Ao Ratio MM 1.8 AV Cusp Separation MM 1.9 cm DOPPLER MR Peak Velocity 397.0 cm/s MR Peak Gradient 63.0 mmHg TR Peak Velocity 371.0 cm/s TR Peak Gradient 55.1 mmHg Right Atrial Pressure 5.0 mmHg Pulmonary Artery Systolic Pressu 60.1 mmHg Right Ventricular Systolic Press 60.1 mmHg FINDINGS LEFT VENTRICLE The left ventricular systolic function is normal with an estimated ejection fraction in the range of 55-60%. Mild concentric left ventricular hypertrophy. Normal left ventricular size. RIGHT VENTRICLE A pacemaker wire is noted. The right ventricle is moderately dilated. The right ventricular systoilc function is moderately decreased. LEFT ATRIUM The left atrial size is normal. RIGHT ATRIUM The right atrial size is moderately dilated. ATRIAL SEPTUM Normal atrial septal thickness without atrial level shunting by limited color doppler interrogation. AORTA The aortic root and proximal ascending aorta are normal in size on limited imaging. MITRAL VALVE Structurally normal mitral valve. No mitral valve stenosis or regurgitation. AORTIC VALVE Trileaflet aortic valve. No aortic valve stenosis or regurgitation. TRICUSPID VALVE There is moderate tricuspid regurgitation. The estimated pulmonary arterial pressure is 60.1 mmHg. PULMONARY VALVE No pulmonary valve regurgitation or stenosis. VESSELS The inferior vena cava is normal in size. PERICARDIUM No pericardial effusion. Ino Han MD, FACC (Electronically Signed) Final Date:09 June 2017 17:50
[2017-06-09] MEDS: CHOLECALCIFEROL (VIT D3) 5000 UNIT CAP PO SCH (21:17)
[2017-06-09] MEDS: AMITRIPTYLINE HCL 50 MG TAB PO SCH (21:17)
[2017-06-09] MEDS: traZODone HCL 50 MG TAB PO SCH (21:17)
[2017-06-09] MEDS: FINASTERIDE 5 MG TAB PO SCH (21:17)
[2017-06-09] MEDS: INSULIN DETEMIR 100 UNITS/ML VIAL SQ SCH (22:09)
--- NOTE | 2017-06-09 23:39 | MB ---
cc: TEJ FLORES DO DATE OF CONSULTATION 06/09/17 REASON FOR CONSULTATION Congestive heart failure. HISTORY OF PRESENT ILLNESS Denys Sanon is a pleasant 81-year-old male who is known to my partner, Dr. Mills, who presented to [facility] emergency room on May 29, 2017 due to shortness of breath. He was supposed to be receiving IV iron due to his longstanding anemia and started getting short of breath so he came over to the emergency room. The patient's oxygenation was around 80%. Of note, he is on 4 liters home oxygen normally throughout the day. He was given IV Solu-Medrol and Benadryl as well as albuterol and his saturations returned to 95% on 4 liters. I had previously seen him. He was going to [employer] incessantly with his and they have since cut that down and have not been there in some time, although she states that he still uses salt a lot more than he should when eating. He currently denies chest pain or orthopnea. PAST MEDICAL HISTORY 1. Diabetes mellitus 2. COPD on home oxygen 4 liters 3. Atrial fibrillation on Coumadin. 4. Anxiety 5. Depression 6. Diastolic congestive heart failure. 7. Hypertension 8. Sleep apnea. 9. Enlarged prostate. PAST SURGICAL HISTORY 1. [facility] [place] AICD 2. Appendectomy. 3. Cholecystectomy. 4. Bilateral knee repair 5. Hernia repair. ALLERGIES STEROIDS MEDICATIONS 1. Home oxygen 4 liters 2. DuoNeb t.i.d. 3. Iron daily 4. Coumadin 5 mg daily 5. Digoxin 0.125 mg daily 6. Lipitor 40 mg daily 7. Bystolic 10 mg b.i.d. 8. Lisinopril 20 mg daily 9. Hydrocodone/acetaminophen 5/325 mg 2 tablets every 6 hours as needed for pain. 10. Gabapentin 300 mg t.i.d. 11. Amitriptyline 15 mg every night 12. Trazodone 50 mg every night 13. Ativan 2 mg every 6 hours as needed for anxiety 14. Potassium 20 mEq b.i.d. 15. Furosemide 40 mg b.i.d. 16. Omeprazole 40 mg b.i.d. 17. 200 mg in the morning, 100 mg at night 18. Lantus 10 units every night 19. Finasteride 5 mg every night. FAMILY HISTORY Denies premature coronary artery disease or sudden cardiac within the family. SOCIAL HISTORY Denies alcohol or drug abuse. The patient previously smoked but quit in 2011. REVIEW OF SYSTEMS 14-systems were reviewed including osteopathic. Pertinent positives and negatives above otherwise negative. PHYSICAL EXAMINATION VITAL SIGNS: Temperature 97.5, heart rate 70, blood pressure 138/64, respirations 18, pulse ox 96% on 4 liters. GENERAL: In general, the patient appears well in no acute distress, alert, awake and oriented x3. HEENT: Extraocular muscles intact. Mucous membranes moist. NECK: Supple. No JVD at 45 degrees. No carotid bruits heard bilaterally. Carotid is brisk in nature. HEART: Regular rate and rhythm. Positive first and second heart sounds with no murmurs, gallops or rubs. LUNGS: Decreased breath sounds bilaterally but no overt wheezes, rales or rhonchi. ABDOMEN: Soft, nontender, nondistended. No organomegaly noted. EXTREMITIES: Show 1+ pitting edema. Femoral and distal pulses intact bilaterally. NEUROLOGIC: No focal deficits. SKIN: Warm, dry and intact. OSTEOPATHIC: No kyphoscoliosis, lordosis or paraspinal tender points. LABORATORY FINDINGS Hemoglobin 9.8, hematocrit 32.5, platelets 411. INR 1.7, potassium 5.4, BUN 32, creatinine 1.58, troponin negative x3. BNP 355. CARDIOLOGY STUDIES Electrocardiogram (June 08, 2017 at 12:42) sinus rhythm with biventricular pacing. IMPRESSION 1. Shortness of breath. 2. Acute diastolic heart failure. 3. COPD on four liters home oxygen. 4. Iron deficiency anemia 5. Diabetes mellitus 6. Acute and chronic kidney disease. 7. Atrial fibrillation. RECOMMENDATIONS 1. Mr. Sanon presented with shortness of breath which is most likely multifactorial from both a pulmonary and cardiac standpoint. 2. We will attempt to diurese off some of this fluid, but he seems to be better in the hospital on these medications and this may be dietary intake of salt at home. 3. I asked that he watch his weights at home and continue to note when he starts increasing his weights, that he needs to watch not only his salt intake but his fluid intake. 4. He is currently subtherapeutic on his Coumadin and his Coumadin will be continued to keep an INR goal of two to three. Further recommendations will be made based on the hospital course. Thank you for allowing me to see Denys Sanon. Of there are any questions, please do not hesitate to call. Tej Flores DO VGP/SA /11:01 PM /11:14 PM
[2017-06-10] VITALS (7 sets, daily range): BP systolic 115–129; BP diastolic 56–59; PULSE 69–75; RESP 18–20; TEMP 97.5–97.6; O2SAT 92–100
[2017-06-10] MEDS: PANTOPRAZOLE SOD 40 MG DELAYED RELEASE TAB PO SCH (06:02)
[2017-06-10] MEDS: ATORVASTATIN 40 MG TAB PO SCH (07:52)
[2017-06-10] MEDS: CYANOCOBALAMIN 100 MCG TAB PO SCH (07:52)
[2017-06-10] MEDS: GABAPENTIN 300 MG CAP PO SCH ×2 (07:52→13:02)
[2017-06-10] MEDS: LISINOPRIL 20 MG TAB PO SCH (07:52)
[2017-06-10] MEDS: NEBIVOLOL 10 MG TAB PO SCH (07:52)
[2017-06-10] MEDS: DIGOXIN 0.125 MG TAB PO SCH (07:53)
[2017-06-10] MEDS: SODIUM CHLORIDE 0.9% FLUSH 10 ML FLUSH IV FLUSH SCH (07:53)
[2017-06-10] MEDS: FUROSEMIDE 40 MG/4 ML VIAL IVP SCH (07:53)
[2017-06-10] MEDS: LORazepam 2 MG TAB PO PRN (08:32)
[2017-06-10] MEDS: INSULIN ASPART SUPPLEMENTAL SCALE SQ SCH ×2 (08:32→13:02)
[2017-06-10 09:51] LABS: MEAN CELL VOLUME 81.5 FL (80.0-100.0); MEAN CORPUSCULAR HGB CONC 30.7 % (32.0-36.0); PLATELET COUNT 367 TH/MM3 (150-450); RED BLOOD COUNT 3.56 MIL/MM3 (4.50-5.90); RED CELL DISTRIBUTION WIDTH 20.3 % (11.6-17.2); REVIEW FLAG FINAL; WHITE BLOOD COUNT 6.6 TH/MM3 (4.0-11.0)
[2017-06-10] MEDS: RESP: ALBUTEROL 2.5 MG/IPRATROPIUM 0.5 MG NEB (SCH) NEB ×2 (09:56→13:39)
[2017-06-10 10:24] LABS: BICARBONATE 37.2 MEQ/L (21.0-32.0); POTASSIUM 4.4 MEQ/L (3.5-5.1)
--- NOTE | 2017-06-10 11:07 | PD.CARD.PN ---
Subjective Subjective Remarks No events overnight No chest pain SOB is better Objective Medications Current Medications Medications (Trade) Dose Ordered Sig/Faviola Route Start Time Stop Time Status Last Admin (NS Flush) 2 ml BID IV FLUSH 06/08/17 21:00 06/10/17 07:53 (NS Flush) 2 ml UNSCH PRN IV FLUSH 06/08/17 17:15 (Lasix Inj) 40 mg BID@,18 IVP 06/08/17 18:00 06/10/17 07:53 (Tylenol) 650 mg Q6H PRN PO 06/08/17 17:30 (Elavil) 50 mg HS PO 06/08/17 21:00 06/09/17 21:17 (Lipitor) 40 mg DAILY PO 06/09/17 09:00 06/10/17 07:52 (Vitamin D3) 5,000 units HS PO 06/08/17 21:00 06/09/17 21:17 (Vitamin B12) 100 mcg DAILY PO 06/09/17 09:00 06/10/17 07:52 (Lanoxin) 0.125 mg DAILY PO 06/09/17 09:00 06/10/17 07:53 (Proscar) 5 mg HS PO 06/08/17 21:00 06/09/17 21:17 (Neurontin) 300 mg TID PO 06/08/17 18:00 06/10/17 07:52 ([place] 5-325 Mg) 2 tab Q6H PRN PO 06/08/17 17:30 06/09/17 09:20 (Levemir Inj) 10 units HS SQ 06/08/17 21:00 06/09/17 22:09 (Prinivil) 20 mg DAILY PO 06/09/17 09:00 06/10/17 07:52 (Ativan) 2 mg Q6H PRN PO 06/08/17 17:30 06/10/17 08:32 (Bystolic) 10 mg BID PO 06/08/17 21:00 06/10/17 07:52 (Helene-Colace) 1 tab DAILY PRN PO 06/08/17 17:30 (Desyrel) 50 mg HS PO 06/08/17 21:00 06/09/17 21:17 (Coumadin) 5 mg DAILY@1600 PO 06/08/17 20:00 06/09/17 17:02 Patient Own Medication PT OWN MED: ACARB... DAILY@1700 PO 06/09/17 17:00 Future Hold Patient Own Medication PT OWN MED: ACARB... DAILY@0800 PO 06/09/17 08:00 Future Hold Patient Own Medication PT OWN MED: Clobetasol Sc... BID PRN TOPICAL 06/08/17 20:30 Future Hold (Protonix) 40 mg BIDAC PO 06/09/17 07:00 06/10/17 06:02 (Duoneb Neb) 1 ampule Q2HR NEB PRN NEB 06/08/17 17:30 (Duoneb Neb) 1 ampule Q6HR WHILE AWAKE NEB NEB 06/08/17 20:00 06/10/17 09:56 (D50w (Vial) Inj) 50 ml UNSCH PRN IV PUSH 06/08/17 18:00 (Glucagon Inj) 1 mg UNSCH PRN OTHER 06/08/17 18:00 (NovoLOG SUPPLEMENTAL SCALE) 1 ACHS SLIDING SCALE SQ 06/08/17 21:00 06/10/17 08:32 Vital Signs / I&O Vital Signs Date Time Temp Pulse Resp B/P (MAP) Pulse Ox O2 Delivery O2 Flow Rate FiO2 06/10/17 08:04 99 Nasal Cannula 4.00 06/10/17 08:01 97.5 70 18 129/58 (81) 92 06/10/17 08:00 69 06/10/17 04:00 97.6 70 20 115/58 (77) 98 06/10/17 01:19 69 06/10/17 00:00 97.6 70 20 126/56 (79) 100 06/09/17 20:00 100 Nasal Cannula 4.00 06/09/17 19:00 97.6 70 20 122/57 (78) 100 06/09/17 16:00 97.4 68 18 113/56 (75) 100 06/09/17 12:00 97.2 70 18 106/51 (69) 95 I/O 06/09/17 06/09/17 06/09/17 06/10/17 06/10/17 06/10/17 07:00 15:00 23:00 07:00 15:00 23:00 Intake Total 360 ml 480 ml 480 ml Output Total 300 ml 800 ml 550 ml Balance 60 ml -320 ml 480 ml -550 ml Intake Oral 360 ml 480 ml 480 ml Output Urine Total 300 ml 800 ml 550 ml # Voids 2 # Bowel Movements 1 Physical Exam GENERAL: NAD, AAOx3 SKIN: Warm and dry. HEAD: Atraumatic. Normocephalic. EYES: Pupils equal and round. No scleral icterus. No injection or drainage. ENT: No nasal bleeding or discharge. Mucous membranes pink and moist. NECK: Trachea midline. No JVD. CARDIOVASCULAR: Regular rate and rhythm. RESPIRATORY: No accessory muscle use. Decreased breath sounds bilaterally, no rales noted GASTROINTESTINAL: Abdomen soft, non-tender, nondistended. Hepatic and splenic margins not palpable. MUSCULOSKELETAL: Bilateral edema trace to 1+ NEUROLOGICAL: Awake and alert. No obvious cranial nerve deficits. Motor grossly within normal limits. Five out of 5 muscle strength in the arms and legs. Normal speech. PSYCHIATRIC: Appropriate mood and affect; insight and judgment normal. Laboratory Laboratory Tests Test 06/10/17 07:42 White Blood Count 6.6 TH/MM3 Red Blood Count 3.56 MIL/MM3 Hemoglobin 8.9 GM/DL Hematocrit 29.0 % Mean Corpuscular Volume 81.5 FL Mean Corpuscular Hemoglobin 25.0 PG Mean Corpuscular Hemoglobin Concent 30.7 % Red Cell Distribution Width 20.3 % Platelet Count 367 TH/MM3 Mean Platelet Volume 8.4 FL Blood Urea Nitrogen 39 MG/DL Creatinine 1.52 MG/DL Random Glucose 155 MG/DL Calcium Level 8.9 MG/DL Sodium Level 138 MEQ/L Potassium Level 4.4 MEQ/L Chloride Level 95 MEQ/L Carbon Dioxide Level 37.2 MEQ/L Anion Gap 6 MEQ/L Estimat Glomerular Filtration Rate 44 ML/MIN Assessment and Plan Problem List: (1) Diastolic CHF, acute on chronic ICD Codes: I50.33 - Diastolic CHF, acute on chronic Status: Acute (2) A-fib ICD Codes: I48.91 - Unspecified atrial fibrillation Status: Chronic (3) Iron deficiency anemia ICD Codes: D50.9 - Iron deficiency anemia, unspecified (4) Pleural effusion ICD Codes: J90 - Pleural effusion, not elsewhere classified Status: Acute (5) Acute respiratory failure ICD Codes: J96.00 - Acute respiratory failure, unspecified whether with hypoxia or hypercapnia Status: Chronic (6) Hypoxia ICD Codes: R09.02 - Hypoxemia Status: Acute (7) Renal insufficiency ICD Codes: N28.9 - Disorder of kidney and ureter, unspecified Status: Acute (8) COPD (chronic obstructive pulmonary disease) ICD Codes: J44.9 - Chronic obstructive pulmonary disease Status: Chronic (9) Edema ICD Codes: R60.9 - Edema, unspecified Status: Acute Assessment and Plan 1) SOB multi-factorial CHF COPD Anemia 2) Does well in the hospital with similar medications as home Most likely excess sodium Discussed with the patient and his agrees that he uses salt on everything, but does not feel it's due to the salt 3) Plan to watch weights at home Dr. Mills added Zaroxolyn at home, but did not get a chance to get it Will plan on watching weights at home If up 2lbs in 24 hours or 3lbs in 48 hours should take Zaroxolyn at home 4) Coumadin for Afib 5) If stable tomorrow can be discharged, if any concern or questions please call the service for covering physician Tej Pereira DO Jun 10, 2017 11:07
--- NOTE | 2017-06-10 15:32 | HHI.DCPOC ---
Discharge Care Plan Diagnosis: (1) CHF exacerbation (2) Acute respiratory failure (3) Hypoxia (4) NEREYDA (acute kidney injury) Goals to Promote Your Health * To prevent worsening of your condition and complications * To maintain your health at the optimal level Directions to Meet Your Goals Take your medications as prescribed Follow your dietary instruction Follow activity as directed Keep your appointments as scheduled Take your immunizations and boosters as scheduled If your symptoms worsen call your PCP, if no PCP go to Urgent Care Center or Emergency Room Smoking is Dangerous to Your Health. Avoid second hand smoke Call the 24-hour hour crisis hotline for domestic abuse at Claude Rivas MD Jun 10, 2017 15:32
--- NOTE | 2017-06-10 15:37 | HHI.DS ---
Discharge Summary Admission Date Jun 08, 2017 at 15:46 Discharge Date: Jun 10, 2017 Admitting Diagnosis respiratory distress, congestive heart failure (1) DM type 2 causing CKD stage 3 ICD Code: E11.22 - Type 2 diabetes mellitus with diabetic chronic kidney disease; N18.3 - Chronic kidney disease, stage 3 (moderate) (2) Respiratory distress ICD Code: R06.00 - Dyspnea, unspecified Status: Acute (3) Pleural effusion ICD Code: J90 - Pleural effusion, not elsewhere classified Status: Acute (4) Acute respiratory failure ICD Code: J96.00 - Acute respiratory failure, unspecified whether with hypoxia or hypercapnia Status: Chronic (5) Iron deficiency anemia ICD Code: D50.9 - Iron deficiency anemia, unspecified (6) Diastolic CHF, acute on chronic ICD Code: I50.33 - Diastolic CHF, acute on chronic Status: Acute (7) A-fib ICD Code: I48.91 - Unspecified atrial fibrillation Status: Chronic (8) Anxiety ICD Code: F41.1 - Anxiety Status: Chronic Procedures None Brief History - From Admission History of present illness from the admitting physician Patient is an 81-year-old male with primary medical history of DM 2, COPD on 4 L home O2, A. fib on Coumadin, diastolic CHF, iron deficiency anemia who came in to the hospital for SOB during iron IV transfusion. As per review of records , it was noted that the patient's oxygen saturation was 80% on his usually required 4 L nasal cannula. He was given IV Solu-Medrol, IV Benadryl and albuterol during the episode. He was seen in the ED would improve saturation of 94-96% on 4 L nasal cannula. Patient seen and examined. States that he had so many problems that has been going on. Reports he had left lower extremity edema that has been an ongoing problem for him. He reports also that the right lower extremity gets swollen, and it alternates with a left lower extremity. Patient also showed that he has some penile and scrotal edema. States that he has been seeing Dr. Colon, and was told that his heart is the cause of most of his shortness of breath. Patient also reports that he had fluid removal done on his right lung yesterday at the hospital. Denies pain and discomfort. Denies chest pain, palpitations, headaches, dizziness. Denies fevers, chills, n/v/d. Denies dysuria. Denies cough but states that he coughs after eating. Denies orthopnea CBC/BMP: 06/10/17 0742 06/10/17 0742 Significant Findings Laboratory Tests Test 06/08/17 12:50 06/08/17 19:51 06/09/17 03:34 06/10/17 07:42 Red Blood Count 3.94 MIL/MM3 (4.50-5.90) 3.56 MIL/MM3 (4.50-5.90) Hemoglobin 9.8 GM/DL (13.0-17.0) 8.9 GM/DL (13.0-17.0) Hematocrit 32.5 % (39.0-51.0) 29.0 % (39.0-51.0) Mean Corpuscular Hemoglobin 24.8 PG (27.0-34.0) 25.0 PG (27.0-34.0) Mean Corpuscular Hemoglobin Concent 30.0 % (32.0-36.0) 30.7 % (32.0-36.0) Red Cell Distribution Width 20.8 % (11.6-17.2) 20.3 % (11.6-17.2) Neutrophils (%) (Auto) 92.4 % (16.0-70.0) Lymphocytes (%) (Auto) 2.4 % (9.0-44.0) Lymphocytes # (Auto) 0.1 TH/MM3 (1.0-4.8) Prothrombin Time 19.6 SEC (9.8-11.6) Activated Partial Thromboplast Time 33.1 SEC (24.3-30.1) Blood Urea Nitrogen 28 MG/DL (7-18) 32 MG/DL (7-18) 39 MG/DL (7-18) Creatinine 1.36 MG/DL (0.60-1.30) 1.58 MG/DL (0.60-1.30) 1.52 MG/DL (0.60-1.30) Random Glucose 157 MG/DL (74-106) 237 MG/DL (74-106) 155 MG/DL (74-106) Carbon Dioxide Level 38.0 MEQ/L (21.0-32.0) 37.6 MEQ/L (21.0-32.0) 37.2 MEQ/L (21.0-32.0) Anion Gap 3 MEQ/L (5-15) 4 MEQ/L (5-15) Estimat Glomerular Filtration Rate 50 ML/MIN (>89) 42 ML/MIN (>89) 44 ML/MIN (>89) Total Creatine Kinase 32 U/L (39-308) B-Type Natriuretic Peptide 355 PG/ML (0-100) Calcium Level 8.4 MG/DL (8.5-10.1) Sodium Level 135 MEQ/L (136-145) Potassium Level 5.4 MEQ/L (3.5-5.1) Chloride Level 93 MEQ/L (98-107) 95 MEQ/L (98-107) Imaging Last Impressions Lower Extremity Ultrasound 06/08/17 0000 Signed Impressions: Service Date/Time: Thursday, June 08, 2017 18:56 - CONCLUSION: Normal examination. No evidence of DVT Judson Canas MD Chest X-Ray 06/08/17 0000 Signed Impressions: Service Date/Time: Thursday, June 08, 2017 13:32 - CONCLUSION: Moderate congestive failure.. Virgil Melendez MD FACR CT Angiography 06/08/17 0000 Signed Impressions: Service Date/Time: Thursday, June 08, 2017 18:11 - CONCLUSION: Negative for pulmonary embolization. Small amount of size right pleural effusion and a minimal left pleural effusion. Consolidated density in the left lower lobe posterior basilar segment and compressive atelectasis in the right lower lobe adjacent to the effusion. Negative for pulmonary embolism Judson Canas MD PE at Discharge GENERAL: This is a well-nourished, well-developed patient in no acute distress. CARDIOVASCULAR: Regular rate and rhythm with systolic 2/6 murmurs, gallops, or rubs. RESPIRATORY: Clear auscultation bilaterally except for Faint bibasilar crackles. GASTROINTESTINAL: Abdomen soft, non-tender, nondistended. Bowel sounds active 4. MUSCULOSKELETAL: Extremities without clubbing, cyanosis. 1+ Juan C LE edema. NEUROLOGICAL: Awake and alert. Motor and sensory grossly within normal limits. Normal speech. Pt update on day of discharge Patient reports he is feeling much better. We discussed discharge planning at length and the need to adhere to a strict diet and strict I/O's. Discussed with his at bedside. He is eager to go home. Hospital Course 81-year-old male with primary medical history of DM 2, COPD on 4 L home O2, A. fib on Coumadin, diastolic CHF, iron deficiency anemia who came in to the hospital for SOB during iron IV transfusion. The patient evidently had a CHF exacerbation likely secondary to noncompliance with diet and salt intake. Evaluation and treatment course detailed below: Acute hypoxic respiratory Failure Acute CHF exacerbation on chronic diastolic CHF - BNP 355, Patient with hypoxia 80% on 4L nc. Patient was treated with IV Lasix. A repeat 2-D echocardiogram was essentially unchanged from his prior. - Patient to resume home dose torsemide and adhere to a strict diet low in salt. Rule out PE Left lower extremity edema - CT pulmonary angiogram neg for PE. - Lower extremity Doppler negative - Lasix IV as above Acute Kidney injury, on chronic kidney disease stage III - baseline 1.1 -1.3, -Renal functions returned to baseline. Hyperkalemia: Patient was given Kayexalate. This resolved. DM, chronic with hyperglycemia - Accu checks with SSI -Continue home Levemir 10units HS. Acarbose A. fib, chronic Chronic anticoagulation with Coumadin HTN, chronic HLD, chronic - Continue Coumadin. Monitor INR outpatient - Continue digoxin, nevibolol, lisinopril Iron deficiency anemia, Chronic, stable. - Received IV iron transfusion. Outpatient follow-up is advised. Pt Condition on Discharge: Good Discharge Disposition: Discharge Home Discharge Time: > 30 minutes Discharge Instructions DIET: Follow Instructions for: Heart Healthy Diet Activities you can perform: Regular-No Restrictions Follow up Referrals: Cardiology - 1 Week PCP Follow-up - 2-3 Days Continued Medications: Acarbose (Acarbose) 100 Mg Tab 200 MG PO DAILY IN THE AM for Blood Sugar Management, #90 TAB 0 Refills Take with first bite of meal. Acarbose (Acarbose) 100 Mg Tab 100 MG PO DAILY IN THE PM for Blood Sugar Management, #30 TAB 0 Refills Take with first bite of meal. Acetaminophen (Tylenol) 325 Mg Tab 650 MG PO Q6H PRN for MILD PAIN/ELEVATED TEMP, TAB 0 Refills Amitriptyline (Amitriptyline) 50 Mg Tab 50 MG PO HS for Control Depression, #30 TAB 0 Refills Atorvastatin (Atorvastatin) 40 Mg Tab 40 MG PO DAILY for Cholesterol Management, #30 TAB 0 Refills Cholecalciferol (Vitamin D3) 5,000 Unit Cap 5000 UNITS PO HS for Nutritional Supplement, #30 CAP 0 Refills Clobetasol Scalp Topical ([place] Scalp Topical) 0.05% Soln 1 APPLIC TOPICAL BID PRN for Rash/Inflammation, #50 ML 0 Refills Cyanocobalamin (Vitamin B12) 100 Mcg Tab 100 MCG PO DAILY, #1 BOTTLE Digoxin (Digoxin) 0.125 Mg Tab 0.125 MG PO DAILY for Regulate Heart Beat, #30 TAB 0 Refills Ferrous Gluconate (Iron) 240 Mg (27 Mg Iron) Tablet 27 MG PO DAILY for Nutritional Supplement Finasteride (Finasteride) 5 Mg Tab 5 MG PO HS for Manage Prostate Problems, #30 TAB 0 Refills Do not crush. Gabapentin (Gabapentin) 300 Mg Cap 300 MG PO TID, #90 CAP 0 Refills Hydrocodone-Acetaminophen (Hydrocodone-Acetaminophen) 5-325 mg Tab 2 TAB PO Q6H PRN for PAIN, #30 TAB 0 Refills Insulin Glargine Inj (Lantus Inj) 1,000 Unit/10 Ml Vial 10 UNITS SQ HS for Blood Sugar Management, VIAL 0 Refills Ipratropium-Albuterol Neb (Duoneb) 0.5-2.5 Mg/3 Ml Neb 3 ML NEB TID for Shortness of Breath, #30 NEBULE 0 Refills Lisinopril (Lisinopril) 20 Mg Tab 20 MG PO DAILY, #30 TAB 0 Refills Lorazepam (Lorazepam) 2 Mg Tab 2 MG PO Q6H PRN for ANXIETY, TAB 0 Refills Nebivolol (Bystolic) 10 Mg Tab 10 MG PO BID for Blood Pressure Management, #30 TAB 0 Refills Omeprazole (Omeprazole) 40 Mg Cap 40 MG PO BID, #30 CAP 0 Refills Oxygen tank (Oxygen tank) 1 Ea Tank 2 LITER JAKE.CANULA CONTINUOUS for HYPOXEMIA PREVENTION, #4 CYLINDER Oxygen Concentrator Portable Gaseous 2 L/min via Nasal Cannula Continuous For 99 months Potassium Chloride ER (Potassium Chloride ER) 10 Meq Tab 20 MEQ PO BID for Electrolyte Replacement, #60 TAB 0 Refills Sennosides-Docusate Sodium (Senna S) 8.6-50 Mg Tab 1 TAB PO DAILY PRN for CONSTIPATION Torsemide (Torsemide) 20 Mg Tab 40 MG PO BID, #60 TAB 0 Refills Trazodone (Trazodone) 50 Mg Tab 50 MG PO HS for Control Depression, #30 TAB 0 Refills Warfarin (Warfarin) 5 Mg Tab 5 MG PO DAILY for Blood Clot Prevention, #30 TAB 0 Refills Claude Rivas MD Jun 10, 2017 15:37
== END 2017-06-10 15:41 | disposition home or self-care (01) | DRG 291 ==
LOC: NEPE 12:27 → NEDA 15:46 → N04A 20:55
PROVIDERS: ADMIT Family Medicine; ATTEND Family Medicine
DX: I13.0 Hypertensive heart and chronic kidney disease with heart failure and stage 1 through stage 4 chronic kidney disease, or unspecified chronic kidney disease (principal); J96.01 Acute respiratory failure with hypoxia; N17.9 Acute kidney failure, unspecified; I50.33 Acute on chronic diastolic (congestive) heart failure; E11.22 Type 2 diabetes mellitus with diabetic chronic kidney disease; E11.65 Type 2 diabetes mellitus with hyperglycemia; Z99.81 Dependence on supplemental oxygen; J44.9 Chronic obstructive pulmonary disease, unspecified; E87.5 Hyperkalemia; I48.2 Chronic atrial fibrillation; N18.3 Chronic kidney disease, stage 3 (moderate); Z79.01 Long term (current) use of anticoagulants; G47.30 Sleep apnea, unspecified; Z96.653 Presence of artificial knee joint, bilateral; N40.0 Benign prostatic hyperplasia without lower urinary tract symptoms; H91.90 Unspecified hearing loss, unspecified ear; F41.9 Anxiety disorder, unspecified; E78.5 Hyperlipidemia, unspecified; D50.9 Iron deficiency anemia, unspecified; F32.9 Major depressive disorder, single episode, unspecified; M19.90 Unspecified osteoarthritis, unspecified site; Z79.4 Long term (current) use of insulin; Z91.11 Patient's noncompliance with dietary regimen; Z87.891 Personal history of nicotine dependence; Z95.810 Presence of automatic (implantable) cardiac defibrillator
CPT/HCPCS: 71010; 71275; 80048; 82550; 82948; 83735; 83880; 84484; 85025; 85027; 85610; 85730; 93005; 93308; 93971; 94640; 94664; 96365; 96372; 96374; 96375; J1100; J1200; J1720; J1750; J1815; J1940; J7030; J7050; Q9967

== ENCOUNTER 2017-07-10 15:21 | Inpatient (IN) | payer MEDICARE ==
[~2017-07-10] VITALS: Ht 188 cm; Wt 104.0 kg
[~2017-07-10 15:21] MED LIST changes: -AMIT25TA9 PO; +AMIT50TA3 PO; +CHOL5000 PO; +CYAN100 PO; -FERR200T PO; +FERR240T8 PO; -FLUT1SPR5 EACH NARE; +IPRASOL NEB; -POTA-163 PO; +POTA10TA2 PO; +SENN8.6T8 PO; +TYLE325T PO; -VITA100T15 PO; -VITA2000 PO
[2017-07-10 15:29] VITALS: BP 129/61; PULSE 70; RESP 20; TEMP 97.5; O2SAT 98
[2017-07-10 15:33] VITALS: BP 129/61; PULSE 62; RESP 22; O2SAT 98
--- NOTE | 2017-07-10 15:43 | PD ---
HPI Chief Complaint: Fall Time Seen by Provider: 15:30 Travel History International Travel<30 days: No Contact w/Intl Traveler<30days: No Traveled to known affect area: No History of Present Illness HPI 81-year-old male on Coumadin presents after mechanical fall. Prior to arrival he tripped on the carpet in his house and fell, landing on his knees. No loss of consciousness. He was able to crawl to a stool where he sat until his returned from [facility]. She called EMS. He is complaining of left knee pain and swelling as well as right lower leg pain and swelling and abrasion. Pain is aching and worse with palpation. Denies any numbness or tingling or weakness. Denies any headache, head trauma, neck or back pain, chest pain or shortness of breath, abdominal pain, injury to the upper extremities. His last tetanus vaccination was 2012. No other complaints. 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) Endocrine: Yes Gastrointestinal Disorders: Yes GERD: No Glaucoma: No Genitourinary: Yes Headaches: Yes (R/T SINUSITIS) Hepatitis: No Hiatal Hernia: Yes Hypertension: Yes Immune Disorder: No Implanted Vascular Access Dvce: Yes Kidney Stones: No Musculoskeletal: Yes Neurologic: Yes Psychiatric: Yes Reproductive: No Respiratory: Yes Integumentary: Yes Immunizations Current: No Migraines: No Radiation Therapy: No Renal Failure: No Seizures: No Sickle Cell Disease: No Sleep Apnea: Yes (CPAP AT NIGHT AT TIMES) Thyroid Disease: No Ulcer: No Past Surgical History Abdominal Surgery: Yes (HERNIA REPAIR) AICD: Yes Appendectomy: Yes Arteriovenous Shunt: No Body Medical Devices: KNEE REPLACEMENT LEFT AND RIGHT, AICD Cardiac Surgery: Yes (PACEMAKER/DEFIB) Cholecystectomy: Yes Ear Surgery: No Endocrine Surgery: No Eye Surgery: Yes (L & R EYE CATARACTS) Genitourinary Surgery: No Gynecologic Surgery: No Insulin Pump: No Joint Replacement: Yes (BILATERAL TKR) Neurologic Surgery: No Oral Surgery: No Pacemaker: Yes (REPLACED IN NOVEMBER 2016) Thoracic Surgery: No Other Surgery: Yes (pacemaker placement, herniated appendix) Social History Alcohol Use: No Tobacco Use: No Substance Use: No Allergies-Medications (Allergen,Severity, Reaction): Coded Allergies: MRI PRECAUTION (Verified Allergy, Severe, 07/10/17) Uncoded Allergies: STEROIDS (Adverse Reaction, Mild, 01/10/17) ELEVATED BLOOD SUGAR Reported Meds & Prescriptions Reported Meds & Active Scripts Active Walker/Adult/Folding (Device) 1 Mis Mis Ea .ROUTE DIRECTED Tylenol-Codeine #3 (Acetaminophen-Codeine) 300-30 mg Tab 1 Tab PO Q4H PRN Oxygen tank (Oxygen) 1 Ea Tank 2 Liter JAKE.CANULA CONTINUOUS Oxygen Concentrator Portable Gaseous 2 L/min via Nasal Cannula Continuous For 99 months Digoxin 0.125 Mg Tab 0.125 Mg PO DAILY Reported Duoneb (Ipratropium-Albuterol Neb) 0.5-2.5 Mg/3 Ml Neb 3 Ml NEB TID Senna S (Sennosides-Docusate Sodium) 8.6-50 Mg Tab 1 Tab PO DAILY PRN Iron (Ferrous Gluconate) 240 Mg (27 Mg Iron) Tablet 27 Mg PO DAILY Tylenol (Acetaminophen) 325 Mg Tab 650 Mg PO Q6H PRN Vitamin D3 (Cholecalciferol) 5,000 Unit Cap 5,000 Units PO HS Amitriptyline (Amitriptyline HCl) 50 Mg Tab 50 Mg PO HS Acarbose 100 Mg Tab 100 Mg PO DAILY IN THE PM Take with first bite of meal. Potassium Chloride ER (Potassium Chloride) 10 Meq Tab 20 Meq PO BID Lantus Inj (Insulin Glargine) 1,000 Unit/10 Ml Vial 10 Units SQ HS Warfarin 5 Mg Tab 5 Mg PO DAILY Trazodone (Trazodone HCl) 50 Mg Tab 50 Mg PO HS Gabapentin 300 Mg Cap 300 Mg PO TID Cormax Scalp Topical (Clobetasol Propionate) 0.05% Soln 1 Applic TOPICAL BID PRN Hydrocodone-Acetaminophen 5-325 mg Tab 2 Tab PO Q6H PRN Vitamin B12 (Cyanocobalamin) 100 Mcg Tab 100 Mcg PO DAILY Lorazepam 2 Mg Tab 2 Mg PO Q6H PRN Acarbose 100 Mg Tab 200 Mg PO DAILY IN THE AM Take with first bite of meal. Omeprazole 40 Mg Cap 40 Mg PO BID Atorvastatin (Atorvastatin Calcium) 40 Mg Tab 40 Mg PO DAILY Torsemide 20 Mg Tab 40 Mg PO BID Lisinopril 20 Mg Tab 20 Mg PO DAILY Bystolic (Nebivolol) 10 Mg Tab 10 Mg PO BID Finasteride 5 Mg Tab 5 Mg PO HS Do not crush. Review of Systems Except as stated in HPI: all other systems reviewed are Neg Physical Exam Narrative GENERAL: Well-developed well-nourished male in no acute distress SKIN: Warm and dry. Hematoma and abrasion right pretibial region, tender to palpation. HEAD: Atraumatic. Normocephalic. EYES: Pupils equal and round. No scleral icterus. No injection or drainage. ENT: No nasal bleeding or discharge. Mucous membranes pink and moist. NECK: Trachea midline. No JVD. CARDIOVASCULAR: Regular rate and rhythm. No murmur appreciated. RESPIRATORY: No accessory muscle use. Clear to auscultation. Breath sounds equal bilaterally. GASTROINTESTINAL: Abdomen soft, non-tender, nondistended. Hepatic and splenic margins not palpable. MUSCULOSKELETAL: Skin as noted above with tenderness to palpation of the right lower leg, the left knee is diffusely tender with a joint effusion. The patient maintains full range of motion of the lower extremity. He has pain with left knee flexion and extension. No tenderness to palpation along the neck or back. NEUROLOGICAL: Awake and alert. No obvious cranial nerve deficits. Motor grossly within normal limits. Normal speech. Data Data Last Documented VS Vital Signs Date Time Temp Pulse Resp B/P (MAP) Pulse Ox O2 Delivery O2 Flow Rate FiO2 07/10/17 18:45 68 18 125/58 (80) 98 Nasal Cannula 2.00 07/10/17 15:29 97.5 Orders Orders Knee, Complete (4vws) (07/10/17 ) Tibia/Fibula (Ap/Lat) (07/10/17 ) Pelvis, Ap Only (Routine) (07/10/17 ) Tetanus/Diphtheria Tox Adult (Tetanus/Di (07/10/17 15:45) Prothrombin Time / Inr (Pt) (07/10/17 15:39) Ice/Cold Pack (07/10/17 15:39) Acetamin-Codeine 300-30 Mg (Tylenol-Code (07/10/17 17:30) Morphine Inj (Morphine Inj) (07/10/17 17:30) Ondansetron Inj (Zofran Inj) (07/10/17 17:30) ^ Other Nursing Orders (07/10/17 18:45) Labs Laboratory Tests Test 07/10/17 17:25 Prothrombin Time 22.9 SEC Prothromb Time International Ratio 2.0 RATIO MDM Medical Decision Making Medical Screen Exam Complete: Yes Emergency Medical Condition: Yes Medical Record Reviewed: Yes Differential Diagnosis Hematoma, fracture, contusion, hemarthrosis, ligamentous disruption Narrative Course X-ray imaging reveals no acute bony abnormalities, hematoma right leg, left knee effusion consistent with examination. INR 2. The patient is stable for discharge. Unfortunately the patient and his feel that he would be unsafe going home tonight given the significant swelling in his left leg and right leg hematoma. There is concern that he will fall again as he is attempting to ambulate in the house. Therefore he will be admitted for observation. Diagnosis Primary Impression: Effusion, left knee Additional Impressions: Hematoma of right lower extremity Abrasion, right lower leg, initial encounter Med/Other Pt SpecificInfo: Prescription(s) given, Wound Care Scripts Walker/Adult/Folding (Walker/Adult/Folding) 1 Mis Mis EA .ROUTE DIRECTED, #1 0 Refills Prov: Daren Thayer MD 07/10/17 Acetaminophen-Codeine (Tylenol-Codeine #3) 300-30 mg Tab 1 TAB PO Q4H Y for PAIN, #15 TAB 0 Refills Prov: Daren Thayer MD 07/10/17 Disposition: 01 DISCHARGE HOME Condition: Stable Jair Moore Jul 10, 2017 15:43
[2017-07-10] MEDS ORDERED: TETANUS/DIPHTHERIA TOXOID ADULT 0.5 ML VIAL IM ONE (15:45)
[2017-07-10 16:00] VITALS: BP 124/58; PULSE 62; RESP 16; O2SAT 100
--- NOTE | 2017-07-10 16:51 | RADRPT ---
EXAM DATE/TIME: 07/10/2017 16:22 [facility] COMPARISON: No previous studies available for comparison. INDICATIONS : Left knee pain, Fall. MEDICAL HISTORY : Cardiovascular disease. Hypertension. Chronic obstructive pulmonary disease. SURGICAL HISTORY : Total knee replacement, left. Total knee replacement, right. Pacemaker. Appendectomy.Cholecystectomy ENCOUNTER: Initial ACUITY: 1 day PAIN SCORE: 10/10 LOCATION: Left anterior knee FINDINGS: Left total knee arthroplasty is noted. The tibial and femoral components appear well-seated. No obvio us fracture. There is prominent soft tissue swelling anterior to the patella and infrapatellar subcut aneous tissues. A small effusion. CONCLUSION: Small knee joint effusion and prominent soft tissue swelling is seen anterior to the knee. Harley Medellin MD on July 10, 2017 at 16:49 Board Certified Radiologist. This report was verified electronically.
--- NOTE | 2017-07-10 16:52 | RADRPT ---
EXAM DATE/TIME: 07/10/2017 16:27 [facility] COMPARISON: No previous studies available for comparison. INDICATIONS : Pelvic pain, fall. MEDICAL HISTORY : Hypertension. SURGICAL HISTORY : None. ENCOUNTER: Initial ACUITY: 1 day PAIN SCORE: 6/10 LOCATION: Bilateral pelvis FINDINGS: A single frontal view of the pelvis demonstrates no evidence of fracture. The bony pelvic ring is in tact. Bony mineralization is normal. The soft tissues are intact. Severe degenerative disc disease of the lower lumbar spine. There is joint space narrowing of both hips. I do not see a definite fract ure. CONCLUSION: No definite fractures. Harley Medellin MD on July 10, 2017 at 16:50 Board Certified Radiologist. This report was verified electronically.
--- NOTE | 2017-07-10 16:53 | RADRPT ---
EXAM DATE/TIME: 07/10/2017 16:17 [facility] COMPARISON: No previous studies available for comparison. INDICATIONS : Fall. MEDICAL HISTORY : Congestive heart failure. Diabetes mellitus type II. Arthritis. Hypercholesterolemia. Hypertensio n. Chronic obstructive pulmonary disease. SURGICAL HISTORY : Appendectomy. Cholecystectomy. Pacemaker. Bilateral knee replacement. ENCOUNTER: Initial ACUITY: 1 day PAIN SCORE: 10/10 LOCATION: Right middle tibia FINDINGS: The bone density is diminished. A right total knee arthroplasty is noted. There is a prominent area o f soft tissue anterior to the proximal tibial shaft measuring 6.7 x 3.9 cm in cephalocaudal AP dimens ion. A hematoma is suspected. No underlying fracture. Calcaneal spur. CONCLUSION: Soft tissue swelling/hematoma suspected subcutaneous tissues without obvious fracture. Harley Medellin MD on July 10, 2017 at 16:50 Board Certified Radiologist. This report was verified electronically.
[2017-07-10] MEDS ORDERED: ONDANSETRON HCL 4 MG/2 ML VIAL IV PUSH ONE (17:30)
[2017-07-10] MEDS ORDERED: MORPHINE SULFATE 4 MG/ML INJ IV PUSH ONE (17:30)
[2017-07-10] MEDS ORDERED: ACETAMINOPHEN/CODEINE 300 MG/30 MG TAB PO ONE (17:30)
[2017-07-10 17:58] LABS: PROTHROMBIN TIME - PATIENT 22.9 SEC (9.8-11.6)
[2017-07-10] MEDS ORDERED: WALKER/ADULT/FO1 MIS (18:03)
[2017-07-10] MEDS ORDERED: TYLETAB34 PO (18:03)
[2017-07-10 18:45] VITALS: BP 125/58; PULSE 68; RESP 18; O2SAT 98
--- NOTE | 2017-07-10 19:38 | HHI.HP ---
[facility] Service [facility] Primary Care Physician Phyllis Moran MD Admission Diagnosis fall, left knee effusion, right leg hematoma Diagnoses: (1) Fall Diagnosis: Principal (2) Gait instability Diagnosis: Principal (3) Effusion, left knee Diagnosis: Principal (4) Hematoma of right lower extremity Diagnosis: Principal (5) A-fib Diagnosis: Principal (6) CHF (congestive heart failure) Diagnosis: Principal (7) DM (diabetes mellitus) Diagnosis: Principal Travel History International Travel<30 Days: No Contact w/Intl Traveler <30 Da: No Traveled to Known Affected Are: No History of Present Illness This is an 81-year-old male with a PMH of HTN, Hyperlipidemia, A. fib on Coumadin, COPD, DM, Anxiety and Depression who is brought here by EMS after mechanical fall with c/o left knee and right leg pain. Per pt, he tripped on carpet at his house and had subsequent fall, landed on his knees. Was unable to get up on his own, called EMS. Denies head trauma or LOC. On arrival, BP 118/59, HR 75, O2 sat 93% on RA, Afebrile. INR 2.0. Knee X-ray with small knee joint effusion and prominent soft tissue swelling. Pelvis X-ray negative. Right Tib-fib was soft tissue swelling/hematoma, no fracture. Pt was to be d/ c'd home, however pt and concerned as he is unable to ambulate safely due to his injuries. Review of Systems Except as stated in HPI: all other systems reviewed are Neg ROS: 14 point review of systems otherwise negative. Past Family Social History Past Medical History PMH: HTN, Hyperlipidemia, A. fib on Coumadin, COPD, DM, Anxiety and Depression Past Surgical History PAST SURGICAL HISTORY: Hernia Repair, AICD, Appendectomy, Bilateral Knee Replacement, Bilateral Cataract Surgery Allergies: Coded Allergies: MRI PRECAUTION (Verified Allergy, Severe, 07/10/17) Uncoded Allergies: STEROIDS (Adverse Reaction, Mild, 01/10/17) ELEVATED BLOOD SUGAR Family History PAST FAMILY HISTORY: Reviewed. No h/o DM or CAD Social History PAST SOCIAL HISTORY: Negative for alcohol, tobacco or drugs. Physical Exam Vital Signs Vital Signs Date Time Temp Pulse Resp B/P (MAP) Pulse Ox O2 Delivery O2 Flow Rate FiO2 07/10/17 18:45 68 18 125/58 (80) 98 Nasal Cannula 2.00 07/10/17 16:00 62 16 124/58 (80) 100 Nasal Cannula 2.00 07/10/17 15:33 62 22 129/61 (83) 98 Nasal Cannula 2.00 07/10/17 15:29 97.5 70 20 129/61 (83) 98 Physical Exam PE: GENERAL: Elderly white male in no acute distress. at bedside. HEENT: PERRLA, EOMI. No scleral icterus or conjunctival pallor. No lid lag or facial droop. CARDIOVASCULAR: Regular rate and rhythm. No obvious murmurs to auscultation. No chest tenderness to palpation. RESPIRATORY: No obvious rhonchi or wheezing. Clear to auscultation. Breath sounds equal bilaterally. GASTROINTESTINAL: Abdomen soft, non-tender, nondistended. BS normal. MUSCULOSKELETAL: Extremities without clubbing, cyanosis, or edema. No obvious deformities. Left knee tenderness to palpation, +effusion. RLE hematoma w/ skin tear. NEUROLOGICAL: Awake, alert and oriented x4. No focal neurologic deficits. Moving both upper and lower extremities spontaneously. Laboratory Laboratory Tests Test 07/10/17 17:25 Prothrombin Time 22.9 Prothromb Time International Ratio 2.0 Caprini VTE Risk Assessment Caprini VTE Risk Assessment: Mod/High Risk (score >= 2) Caprini Risk Assessment Model Point Value = 1 Point Value = 2 Point Value = 3 Point Value = 5 Age 41-60 Minor surgery BMI > 25 kg/m2 Swollen legs Varicose veins or History of unexplained or recurrent spontaneous Oral contraceptives or hormone replacement Sepsis (< 1 month) Serious lung disease, including pneumonia (< 1 month) Abnormal pulmonary function Acute myocardial infarction Congestive heart failure (< 1 month) History of inflammatory bowel disease Medical patient at bed rest Age 61-74 Arthroscopic surgery Major open surgery (> 45 min) Laparoscopic surgery (> 45 min) Malignancy Confined to bed (> 72 hours) Immobilizing plaster cast Central venous access Age >= 75 History of VTE Family history of VTE Factor V Leiden Prothrombin [id number] Lupus anticoagulant Anticardiolipin antibodies Elevated serum homocysteine Heparin-induced thrombocytopenia Other congenital or acquired thrombophilia Stroke (< 1 month) Elective arthroplasty Hip, pelvis, or leg fracture Acute spinal cord injury (< 1 month) Prophylaxis Regimen Total Risk Factor Score Risk Level Prophylaxis Regimen 0-1 Low Early ambulation 2 Moderate Order ONE of the following: *Sequential Compression Device (SCD) *Heparin 5000 units SQ BID 3-4 Higher Order ONE of the following medications: *Heparin 5000 units SQ TID *Enoxaparin/Lovenox 40 mg SQ daily (WT < 150 kg, CrCl > 30 mL/min) *Enoxaparin/Lovenox 30 mg SQ daily (WT < 150 kg, CrCl > 10-29 mL/min) *Enoxaparin/Lovenox 30 mg SQ BID (WT < 150 kg, CrCl > 30 mL/min) AND/OR *Sequential Compression Device (SCD) 5 or more Highest Order ONE of the following medications: *Heparin 5000 units SQ TID (Preferred with Epidurals) *Enoxaparin/Lovenox 40 mg SQ daily (WT < 150 kg, CrCl > 30 mL/min) *Enoxaparin/Lovenox 30 mg SQ daily (WT < 150 kg, CrCl > 10-29 mL/min) *Enoxaparin/Lovenox 30 mg SQ BID (WT < 150 kg, CrCl > 30 mL/min) AND *Sequential Compression Device (SCD) Assessment and Plan Problem List: (1) Fall ICD Code: W19.XXXA - Unspecified fall, initial encounter (2) Gait instability ICD Code: R26.81 - Unsteadiness on feet (3) Effusion, left knee ICD Code: M25.462 - Effusion, left knee Status: Acute (4) Hematoma of right lower extremity ICD Code: S80.11XA - Contusion of right lower leg, initial encounter Status: Acute (5) A-fib ICD Code: I48.91 - Unspecified atrial fibrillation (6) CHF (congestive heart failure) ICD Code: I50.9 - Heart failure, unspecified (7) DM (diabetes mellitus) ICD Code: E11.9 - Type 2 diabetes mellitus without complications Assessment and Plan A/P: 1. Fall: s/p mechanical fall at home after tripping on carpet, no LOC or head trauma reported. 2. Left Knee Effusion: secondary to fall, left knee tenderness to palpation, decreased ROM. Left Knee X-ray w/ small knee joint effusion and prominent soft tissue swelling, images reviewed by me. Analgesics as needed. 3. RLE Hematoma: secondary to fall/injury, Tib-Fib X-ray w/ soft tissue swelling/hematoma, no fracture, images reviewed by me. On Coumadin for A-fib, INR therapeutic at 2.0. Will monitor. 4. Gait Instability: secondary to above. Unable to ambulate safely without assistance at this time. PT for eval/tx. Case Management as needed. 5. A-fib: Chronic. On Coumadin. INR therapeutic, repeat INR in am. Resume home medications. 6. CHF: Chronic. Diastolic. Echo 06/09/17 w/ EF 55-60%. Resume home medications. Monitor I/O. 7. DM: Sliding scale w/ Accu-Cheks. Resume home Insulin. 8. DVT Prophylaxis: On Coumadin as above. 9. Social work for d/c planning as needed. 10. Case discussed w/ ER physician at length Michelle Campos MD Jul 10, 2017 19:38
[2017-07-10] MEDS ORDERED: MAGNESIUM HYDROXIDE SUSP 30 ML CUP PO PRN (19:45)
[2017-07-10] MEDS ORDERED: SENNOSIDES 8.6 MG TAB PO PRN (19:45)
[2017-07-10] MEDS ORDERED: ONDANSETRON HCL 4 MG/2 ML VIAL IVP PRN (19:45)
[2017-07-10] MEDS ORDERED: BISACODYL 10 MG SUPP RECTAL PRN (19:45)
[2017-07-10] MEDS ORDERED: LANTUS2P SQ (19:45)
[2017-07-10] MEDS ORDERED: LACTULOSE SYRUP 20 GM/30 ML CUP PO PRN (19:45)
[2017-07-10] MEDS ORDERED: ACETAMINOPHEN 325 MG TAB PO PRN (19:45)
[2017-07-10] MEDS ORDERED: WARF-20 PO (19:45)
[2017-07-10] MEDS ORDERED: RESP: ALBUTEROL 2.5 MG/IPRATROPIUM 0.5 MG NEB (PRN) NEB (20:15)
[2017-07-10] MEDS ORDERED: [UNRECOGNIZED DRUG - OTHER] TOPICAL PRN (20:30)
[2017-07-10] MEDS: CHOLECALCIFEROL (VIT D3) 5000 UNIT CAP PO SCH (21:00)
[2017-07-10 22:34] VITALS: BP 118/59; PULSE 71; RESP 18; TEMP 98.7; O2SAT 91
[2017-07-10] MEDS: SODIUM CHLORIDE 0.9% FLUSH 10 ML FLUSH IV FLUSH SCH (22:39)
[2017-07-10] MEDS: DOCUSATE SODIUM 50 MG/SENNA 8.6 MG TAB PO SCH (22:39)
[2017-07-10] MEDS: FINASTERIDE 5 MG TAB PO SCH (22:39)
[2017-07-10] MEDS: traZODone HCL 50 MG TAB PO SCH (22:39)
[2017-07-10] MEDS: MORPHINE SULFATE 4 MG/ML INJ IV PUSH PRN (22:39)
[2017-07-10] MEDS: PANTOPRAZOLE SOD 40 MG DELAYED RELEASE TAB PO SCH (22:39)
[2017-07-10] MEDS: INSULIN DETEMIR 100 UNITS/ML VIAL SQ SCH (22:40)
[2017-07-11] MEDS: AMITRIPTYLINE HCL 50 MG TAB PO SCH ×2 (00:01→21:54)
[2017-07-11] MEDS: NEBIVOLOL 10 MG TAB PO SCH ×3 (00:01→21:00)
[2017-07-11 00:54] VITALS: BP 118/78; PULSE 78; RESP 18; TEMP 98.7; O2SAT 97
[2017-07-11] MEDS: MORPHINE SULFATE 4 MG/ML INJ IV PUSH PRN ×3 (02:30→11:53)
[2017-07-11 07:21] VITALS: BP 108/55; PULSE 70; RESP 16; TEMP 97.4; O2SAT 96
[2017-07-11 07:40] LABS: AUTOMATED NEUTROPHIL # 5.9 TH/MM3 (1.8-7.7); BASOPHIL # 0.1 TH/MM3 (0-0.2); BASOPHIL % 0.8 % (0.0-2.0); EOSINOPHIL # 0.1 TH/MM3 (0-0.4); EOSINOPHIL % 1.8 % (0.0-4.0); HEMATOCRIT 24.3 % (39.0-51.0); HEMO FLAGS DIFF FINAL; LYMPH % 7.8 % (9.0-44.0); LYMPHOCYTE # 0.6 TH/MM3 (1.0-4.8); MEAN CELL VOLUME 79.4 FL (80.0-100.0); MEAN CORPUSCULAR HEMOGLOBIN 23.4 PG (27.0-34.0); MONO % 10.5 % (0.0-8.0); NEUT % 79.1 % (16.0-70.0); PLATELET COUNT 309 TH/MM3 (150-450); RED BLOOD COUNT 3.06 MIL/MM3 (4.50-5.90); RED CELL DISTRIBUTION WIDTH 18.7 % (11.6-17.2); WHITE BLOOD COUNT 7.5 TH/MM3 (4.0-11.0)
[2017-07-11 07:41] LABS: MEAN CORPUSCULAR HGB CONC 29.5 % (32.0-36.0)
[2017-07-11 07:53] LABS: INTERNATIONAL NORMALIZED RATIO 1.9 RATIO
[2017-07-11] MEDS ORDERED: ACARBOSE 100 MG PO SCH ×2 (08:00→17:00)
[2017-07-11 08:05] LABS: ANION GAP 3 MEQ/L (5-15); AST (GOT) 9 U/L (15-37); BICARBONATE 36.6 MEQ/L (21.0-32.0); BLOOD UREA NITROGEN 49 MG/DL (7-18); CHLORIDE 98 MEQ/L (98-107); GLOMERULAR FILTRATION RATE 43 ML/MIN (>89); POTASSIUM 4.6 MEQ/L (3.5-5.1); SODIUM (NA) 138 MEQ/L (136-145)
[2017-07-11 08:06] LABS: ALT (GPT) 13 U/L (12-78)
[2017-07-11 08:08] LABS: ALKALINE PHOSPHATASE 39 U/L (45-117); TOTAL BILIRUBIN ADULT 0.8 MG/DL (0.2-1.0)
[2017-07-11] MEDS: SODIUM CHLORIDE 0.9% FLUSH 10 ML FLUSH IV FLUSH SCH ×2 (08:43→21:56)
[2017-07-11] MEDS: PANTOPRAZOLE SOD 40 MG DELAYED RELEASE TAB PO SCH ×2 (08:43→21:54)
[2017-07-11] MEDS: GABAPENTIN 300 MG CAP PO SCH ×3 (08:44→17:07)
[2017-07-11] MEDS: DOCUSATE SODIUM 50 MG/SENNA 8.6 MG TAB PO SCH ×2 (08:44→21:55)
[2017-07-11] MEDS: DIGOXIN 0.125 MG TAB PO SCH (08:44)
[2017-07-11] MEDS: LISINOPRIL 20 MG TAB PO SCH (08:45)
[2017-07-11] MEDS: ATORVASTATIN 40 MG TAB PO SCH (08:45)
[2017-07-11] MEDS: TORSEMIDE 20 MG TAB PO SCH ×3 (08:46→21:00)
[2017-07-11] MEDS ORDERED: PILL SPLITTER OTHER PRN (09:00)
[2017-07-11] MEDS: ASCORBIC ACID 500 MG TAB PO SCH ×2 (09:56→21:55)
[2017-07-11] MEDS: FERROUS SULFATE 325 MG (65 MG ELEMENTAL IRON) TAB PO SCH ×2 (09:57→21:54)
[2017-07-11] MEDS: CYANOCOBALAMIN 100 MCG TAB PO SCH (10:48)
[2017-07-11] MEDS ORDERED: DEXTROSE 50% IN WATER 50 ML VIAL(D50) IV PUSH PRN (12:45)
[2017-07-11] MEDS ORDERED: GLUCAGON 1 MG/ML VIAL OTHER PRN (12:45)
[2017-07-11 13:34] VITALS: BP 122/58; PULSE 73; RESP 16; TEMP 98.1; O2SAT 94
--- NOTE | 2017-07-11 14:45 | HHI.PR ---
Objective Vitals Vital Signs Date Time Temp Pulse Resp B/P (MAP) Pulse Ox O2 Delivery O2 Flow Rate FiO2 07/11/17 13:34 98.1 73 16 122/58 (79) 94 07/11/17 07:21 97.4 70 16 108/55 (72) 96 07/11/17 03:33 18 07/11/17 00:54 98.7 78 18 118/78 (91) 97 07/10/17 22:34 98.7 71 18 118/59 (78) 91 07/10/17 18:45 68 18 125/58 (80) 98 Nasal Cannula 2.00 07/10/17 16:00 62 16 124/58 (80) 100 Nasal Cannula 2.00 07/10/17 15:33 62 22 129/61 (83) 98 Nasal Cannula 2.00 07/10/17 15:29 97.5 70 20 129/61 (83) 98 Result Diagram: 07/11/17 0702 07/11/17 0702 A/P Problem List: (1) Fall ICD Code: W19.XXXA - Unspecified fall, initial encounter (2) Gait instability ICD Code: R26.81 - Unsteadiness on feet (3) Effusion, left knee ICD Code: M25.462 - Effusion, left knee Status: Acute (4) Hematoma of right lower extremity ICD Code: S80.11XA - Contusion of right lower leg, initial encounter Status: Acute (5) A-fib ICD Code: I48.91 - Unspecified atrial fibrillation (6) CHF (congestive heart failure) ICD Code: I50.9 - Heart failure, unspecified (7) DM (diabetes mellitus) ICD Code: E11.9 - Type 2 diabetes mellitus without complications Assessment and Plan - Fall: s/p mechanical fall at home after tripping on carpet, no LOC or head trauma reported. - Left Knee Effusion: secondary to fall, left knee tenderness to palpation, decreased ROM. Left Knee X-ray w/ small knee joint effusion and prominent soft tissue swelling, images reviewed by me. Analgesics as needed. - RLE Hematoma: secondary to fall/injury, Tib-Fib X-ray w/ soft tissue swelling/hematoma, no fracture, images reviewed by me. On Coumadin for A-fib, INR therapeutic at 2.0. Will monitor. - Acute on chronic anemia : Hemoglobin been 7.2 dropped to 6.9 today Which may be contributed to the patient frequent fall, iron panel ordered consistent relatively with iron deficiency, consult hematology - Gait Instability: secondary to above. Unable to ambulate safely without assistance at this time. PT for eval/tx. Case Management as needed. - A-fib: Chronic. On Coumadin. INR therapeutic, repeat INR in am. Resume home medications. - CHF: Chronic. Diastolic. Echo 06/09/17 w/ EF 55-60%. However he does have reduced right ventricular systolic function with dilated right ventricle and atrium and increased pulmonary hypertension 60 mmHg, Resume home medications. Monitor I/O. - DM: Sliding scale w/ Accu-Cheks. Resume home Insulin. - DVT Prophylaxis: On Coumadin as above. Sylvia Page MD Jul 11, 2017 14:45
[2017-07-11 14:56] LABS: TRANSFERRIN 256 MG/DL (200-360); TRANSFERRIN IRON PROFILE 256 MG/DL (200-360)
[2017-07-11 14:58] LABS: HEMATOCRIT 22.4 % (39.0-51.0)
[2017-07-11 14:59] LABS: FERRITIN 48 NG/ML (26-388)
[2017-07-11 15:01] LABS: REVIEW FLAG FINAL
[2017-07-11] MEDS ORDERED: FUROSEMIDE 20 MG/2 ML VIAL IV PUSH ONE (15:30)
[2017-07-11 15:50] VITALS: BP 116/58; PULSE 70; RESP 18; TEMP 97.9; O2SAT 97
[2017-07-11] MEDS: ACETAMINOPHEN/HYDROcodone 325 MG/5 MG TAB PO PRN ×2 (17:08→22:15)
[2017-07-11] MEDS: INSULIN ASPART SUPPLEMENTAL SCALE SQ SCH ×2 (17:08→22:08)
[2017-07-11 19:00] VITALS: BP 116/59; PULSE 70; RESP 17; TEMP 97.7; O2SAT 98
[2017-07-11] MEDS: FINASTERIDE 5 MG TAB PO SCH (21:53)
[2017-07-11] MEDS: CHOLECALCIFEROL (VIT D3) 5000 UNIT CAP PO SCH (21:53)
[2017-07-11] MEDS: traZODone HCL 50 MG TAB PO SCH (21:54)
[2017-07-11] MEDS: INSULIN DETEMIR 100 UNITS/ML VIAL SQ SCH (22:15)
[2017-07-12] VITALS (11 sets, daily range): BP systolic 105–139; BP diastolic 51–70; PULSE 69–70; RESP 16–20; TEMP 96.3–98.5; O2SAT 91–98
[2017-07-12] MEDS: SODIUM CHLORIDE 0.9% FLUSH 10 ML FLUSH IV FLUSH PRN ×2 (03:37→05:43)
[2017-07-12] MEDS: MORPHINE SULFATE 4 MG/ML INJ IV PUSH PRN (05:42)
[2017-07-12] MEDS ORDERED: IRON SUCROSE INJ 200 MG in SODIUM CHLORIDE 0.9% INJ 100 ML IV ONE (06:00)
[2017-07-12] MEDS ORDERED: IRON SUCROSE 100 MG/5 ML VIAL IV PUSH ONE (06:00)
--- NOTE | 2017-07-12 06:46 | MB ---
cc: BETSY LANDIN M.D. DATE OF CONSULTATION 07/11/2017 REASON FOR CONSULTATION Consult requested by hospitalist for evaluation of iron deficiency anemia. HISTORY OF PRESENT ILLNESS This is an 81-year-old very pleasant white male. He is well-known to me for iron deficiency anemia. His iron deficiency is due to intermittent GI bleeding. He has ascending colon AVM which was cauterized recently. He had a pill camera study which showed ulceration in the small bowel which is causing the bleeding. The patient has received multiple iron infusions. I saw him last week Tuesday in my office for the anemia. I have restarted him on Venofer IV iron infusion. He tolerated the iron infusion last week Tuesday well. He was supposed to come into our clinic tomorrow for another iron infusion. The patient tripped at home on the carpet and he fell and was unable to get up. His called paramedics and the patient was brought into the emergency room. The patient sustained injuries to his both lower legs. The x-rays did not show any fractures. He has the left knee effusion and hematoma of the right lower extremity. This is managed conservatively. The patient was unable to be discharged as he cannot walk due to the injuries. CBC was obtained which showed white count of 7.5, hemoglobin 7.2, hematocrit 24.3, platelet count 309. MCV is 79. The hemoglobin was repeated and came back low at 6.9. Two units of blood transfusion had been ordered. The iron studies were checked and was found that the ferritin is low at 48, iron saturation is low at 17.3. Serum iron is low at 62 and TIBC is high normal at 358. Because of the iron deficiency I have been asked to see him for further evaluation. The patient has been complaining of weakness, tiredness, fatigue. He has problem with the gate. He states that he tripped and fell at home on the carpet. There are no fractures noted. The rest of the review of systems is negative. PAST MEDICAL HISTORY 1. Iron deficiency anemia due to intermittent GI bleeding. 2. Small bowel AVMs. 3. Anxiety disorder. 4. Arthritis. 5. Atrial fibrillation. 6. BPH. 7. COPD. 8. Congestive heart failure. 9. Depression. 10. Diabetes mellitus. 11. Hypercholesterolemia. 12. Hypertension. 13. Sleep apnea syndrome on C-PAP. PAST SURGICAL HISTORY 1. AICD placement. 2. Cataract. 3. Bilateral knee surgery. 4. Appendectomy. ALLERGIES None. MEDICATIONS Please see EMR. FAMILY HISTORY Noncontributory. SOCIAL HISTORY The patient does not smoke cigarettes, does not drink alcohol. PHYSICAL EXAMINATION GENERAL: A well-developed, well-nourished white male in no apparent distress. VITAL SIGNS: Temperature 97.9, heart rate is 70, blood pressure 116/58, O2 saturation 97%. HEENT: PERRLA, EOMI, anicteric. No oral lesions noted. NECK: Supple. LYMPHATICS: There is no cervical, supraclavicular or axillary lymphadenopathy noted. LUNGS: Clear. No wheezing, rhonchi or rales. HEART: Irregularly irregular. ABDOMEN: Soft, nontender. No hepatosplenomegaly. EXTREMITIES: No evidence of recent injuries noted in both lower legs. NEUROLOGY: Awake, alert, oriented x 3. SKIN: No significant lesions noted. ASSESSMENT 1. Iron deficiency anemia due to GI bleeding. 2. Small bowel AVMs which probably are causing the GI bleeding. 3. Status post fall and gait imbalance. PLAN I have reviewed his available records and I have discussed with the patient regarding his anemia. The patient has severe iron deficiency anemia which is due to the intermittent GI bleeding from small bowel AVMs. He had a pill camera study which show AVMs of the small bowel. He has been getting iron infusion in our office. In spite of that he still remains significantly anemic which is microcytic. Iron studies still show iron deficiency. The most likely source of iron deficiency is GI bleeding. The patient previously was on Xarelto for atrial fibrillation. Due to his renal insufficiency, I have recommended that either the patient should be on low-dose Eliquis or Coumadin. Hospital records indicates that he is on Coumadin now. His INR is therapeutic. The patient had received Venofer last week Tuesday in our office. I will give him Venofer tomorrow. The patient is going to start blood transfusion this evening per his nurse. I will consult GI for further evaluation of the GI bleeding which is causing the severe anemia. I explained to the patient that unfortunately there is nothing I can do for his small bowel AVMs which is out of my expertise. Maybe his switch maker will explain to him what else could be done to stop the bleeding. Further recommendations based on his hospital stay. Thank you for asking my opinion. MD MIHAI Whitten/NAN /11:47 PM /6:35 AM MTDJuanita
[2017-07-12] MEDS: ACETAMINOPHEN/HYDROcodone 325 MG/5 MG TAB PO PRN (07:28)
[2017-07-12] MEDS: LISINOPRIL 20 MG TAB PO SCH (08:47)
[2017-07-12] MEDS: ATORVASTATIN 40 MG TAB PO SCH (08:47)
[2017-07-12] MEDS: FERROUS SULFATE 325 MG (65 MG ELEMENTAL IRON) TAB PO SCH ×2 (08:47→21:47)
[2017-07-12] MEDS: CYANOCOBALAMIN 100 MCG TAB PO SCH (08:47)
[2017-07-12] MEDS: ASCORBIC ACID 500 MG TAB PO SCH ×2 (08:47→21:47)
[2017-07-12] MEDS: PANTOPRAZOLE SOD 40 MG DELAYED RELEASE TAB PO SCH ×2 (08:48→21:47)
[2017-07-12] MEDS: NEBIVOLOL 10 MG TAB PO SCH ×2 (08:48→21:47)
[2017-07-12] MEDS: DIGOXIN 0.125 MG TAB PO SCH (08:48)
[2017-07-12] MEDS: DOCUSATE SODIUM 50 MG/SENNA 8.6 MG TAB PO SCH ×2 (08:50→21:46)
[2017-07-12] MEDS: TORSEMIDE 20 MG TAB PO SCH ×2 (08:50→21:47)
[2017-07-12] MEDS: SODIUM CHLORIDE 0.9% FLUSH 10 ML FLUSH IV FLUSH SCH ×2 (08:50→21:48)
[2017-07-12] MEDS: INSULIN ASPART SUPPLEMENTAL SCALE SQ SCH ×4 (08:51→21:48)
[2017-07-12] MEDS: GABAPENTIN 300 MG CAP PO SCH ×3 (08:51→18:22)
[2017-07-12] MEDS: LORazepam 2 MG TAB PO PRN (09:03)
[2017-07-12] MEDS ORDERED: GLUCAGON 1 MG/ML VIAL OTHER PRN (09:30)
[2017-07-12] MEDS ORDERED: DEXTROSE 50% IN WATER 50 ML VIAL(D50) IV PUSH PRN (09:30)
[2017-07-12 10:27] LABS: AUTOMATED NEUTROPHIL # 4.8 TH/MM3 (1.8-7.7); BASOPHIL # 0.1 TH/MM3 (0-0.2); BASOPHIL % 1.1 % (0.0-2.0); EOSINOPHIL # 0.1 TH/MM3 (0-0.4); EOSINOPHIL % 1.8 % (0.0-4.0); HEMATOCRIT 28.5 % (39.0-51.0); HEMO FLAGS DIFF FINAL; LYMPH % 5.3 % (9.0-44.0); LYMPHOCYTE # 0.3 TH/MM3 (1.0-4.8); MEAN CELL VOLUME 81.2 FL (80.0-100.0); MEAN CORPUSCULAR HEMOGLOBIN 24.8 PG (27.0-34.0); MEAN CORPUSCULAR HGB CONC 30.5 % (32.0-36.0); MONO % 9.9 % (0.0-8.0); NEUT % 81.9 % (16.0-70.0); PLATELET COUNT 230 TH/MM3 (150-450); RED BLOOD COUNT 3.51 MIL/MM3 (4.50-5.90); RED CELL DISTRIBUTION WIDTH 19.4 % (11.6-17.2); WHITE BLOOD COUNT 5.8 TH/MM3 (4.0-11.0)
[2017-07-12 10:46] LABS: BICARBONATE 36.8 MEQ/L (21.0-32.0); POTASSIUM 4.7 MEQ/L (3.5-5.1)
--- NOTE | 2017-07-12 11:01 | HHI.PR ---
Subjective Remarks Patient reports is feeling better. Wants to go home. He states the oncologist told him he could go home soon. He denies any melena. States he tripped and fell. He denies any lightheadedness or any other issues prior to the fall. Objective Vitals Vital Signs Date Time Temp Pulse Resp B/P (MAP) Pulse Ox O2 Delivery O2 Flow Rate FiO2 07/12/17 06:18 96.4 70 18 126/60 91 07/12/17 06:18 96.4 70 18 126/60 91 07/12/17 03:51 98.5 70 18 110/51 95 07/12/17 03:33 98.2 70 18 105/56 93 07/12/17 02:39 98.0 69 20 114/55 (74) 93 07/12/17 02:39 98.0 69 20 114/55 93 07/12/17 00:15 97.5 70 20 119/56 97 07/12/17 00:02 97.5 70 20 118/52 95 07/12/17 00:00 97.7 70 17 116/59 (78) 98 07/11/17 19:00 97.7 70 17 116/59 (78) 98 07/11/17 18:10 16 07/11/17 15:50 97.9 70 18 116/58 (77) 97 07/11/17 13:34 98.1 73 16 122/58 (79) 94 I/O 07/11/17 07/11/17 07/11/17 07/12/17 07/12/17 07/12/17 07:00 15:00 23:00 07:00 15:00 23:00 Intake Total 480 ml 2268 ml Output Total 500 ml Balance 480 ml 1768 ml Intake Oral 480 ml 360 ml Packed Cells 1200 ml Blood Product IV Normal Saline Flush 708 ml Output Urine Total 500 ml # Voids 2 # Bowel Movements 0 0 Result Diagram: 07/12/17 1000 07/12/17 1000 Objective Remarks GENERAL: Elderly male in no apparent distress. CARDIOVASCULAR: Normal rate and regular rhythm without murmurs, gallops, or rubs. RESPIRATORY: Good respiratory efforts. Breath sounds equal and clear to auscultation bilaterally. GASTROINTESTINAL: Abdomen soft, non-tender, non-distended. Normal active bowel sounds MUSCULOSKELETAL: Left knee with a significant effusion, tender to palpation. Range of motion somewhat limited secondary to pain. Right lower extremity is wrapped with a dressing. NEURO: Alert & Oriented x4 to person, place, time, situation. Moves all ext x4 PSYCH: Appropriate mood and affect. A/P Problem List: (1) Fall ICD Code: W19.XXXA - Unspecified fall, initial encounter (2) Gait instability ICD Code: R26.81 - Unsteadiness on feet (3) Effusion, left knee ICD Code: M25.462 - Effusion, left knee Status: Acute (4) Hematoma of right lower extremity ICD Code: S80.11XA - Contusion of right lower leg, initial encounter Status: Acute (5) A-fib ICD Code: I48.91 - Unspecified atrial fibrillation (6) CHF (congestive heart failure) ICD Code: I50.9 - Heart failure, unspecified (7) DM (diabetes mellitus) ICD Code: E11.9 - Type 2 diabetes mellitus without complications Assessment and Plan 81-year-old male with: - Fall: s/p mechanical fall at home after tripping on carpet, no LOC or head trauma reported. - Left Knee Effusion: secondary to fall, left knee tenderness to palpation, decreased ROM. Left Knee X-ray w/ small knee joint effusion and prominent soft tissue swelling, images reviewed by me. Analgesics as needed. Will need outpatient PT. - RLE Hematoma: secondary to fall/injury, Tib-Fib X-ray w/ soft tissue swelling/hematoma, no fracture, images reviewed by me. On Coumadin for A-fib, INR therapeutic at 2.0. Will monitor. - Acute on chronic anemia : Hemoglobin was 7.2 dropped to 6.9 Which may be contributing to the patient frequent fall, appreciate hematology consult who indicated the patient has iron deficiency anemia from chronic GI bleeding. 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 He has been given iron infusion. Patient received PRBC transfusion and hemoglobin improved. GI is consulted. - Intermittent GI bleeding from AVM. GI has been consulted. - Gait Instability: secondary to above. Unable to ambulate safely without assistance at this time. Continue PT, will need home PT. - A-fib: Chronic. On Coumadin. INR therapeutic, repeat INR in am. Resume home medications. - CHF: Chronic. Diastolic. Echo 06/09/17 w/ EF 55-60%. However he does have reduced right ventricular systolic function with dilated right ventricle and atrium and increased pulmonary hypertension 60 mmHg, Resume home medications. Monitor I/O. - DM: Sliding scale w/ Accu-Cheks. Resume home Insulin. - DVT Prophylaxis: On Coumadin as above. Discharge Planning Awaiting GI consult. If no inpatient procedures planned, the patient can be discharged home with home health care and PT Claude Rivas MD Jul 12, 2017 11:01
--- NOTE | 2017-07-12 11:16 | PD.ONC.PN ---
Subjective Subjective Remarks Afebrile overnightPatient resting in bedside with Patient resting in bed with at bedside Concerned about weakness with potential discharge today Objective Data Date Time Temp Pulse Resp B/P (MAP) Pulse Ox O2 Delivery O2 Flow Rate FiO2 07/12/17 06:18 96.4 70 18 126/60 91 07/12/17 06:18 96.4 70 18 126/60 91 07/12/17 03:51 98.5 70 18 110/51 95 07/12/17 03:33 98.2 70 18 105/56 93 07/12/17 02:39 98.0 69 20 114/55 (74) 93 07/12/17 02:39 98.0 69 20 114/55 93 07/12/17 00:15 97.5 70 20 119/56 97 07/12/17 00:02 97.5 70 20 118/52 95 07/12/17 00:00 97.7 70 17 116/59 (78) 98 07/11/17 19:00 97.7 70 17 116/59 (78) 98 07/11/17 18:10 16 07/11/17 15:50 97.9 70 18 116/58 (77) 97 07/11/17 13:34 98.1 73 16 122/58 (79) 94 07/12/17 07/12/17 07/12/17 07:00 15:00 23:00 Intake Total 2268 ml Output Total 500 ml Balance 1768 ml Result Diagram: 07/12/17 1000 07/12/17 1000 Laboratory Results Laboratory Tests Test 07/11/17 13:50 07/11/17 14:30 07/12/17 10:00 Iron Level 62 MCG/DL Total Iron Binding Capacity 358 MCG/DL Percent Iron Saturation 17.3 % Transferrin 256 MG/DL Ferritin 48 NG/ML Digoxin Level 1.2 NG/ML Hemoglobin 6.9 GM/DL 8.7 GM/DL Hematocrit 22.4 % 28.5 % Total Creatine Kinase 25 U/L White Blood Count 5.8 TH/MM3 Red Blood Count 3.51 MIL/MM3 Mean Corpuscular Volume 81.2 FL Mean Corpuscular Hemoglobin 24.8 PG Mean Corpuscular Hemoglobin Concent 30.5 % Red Cell Distribution Width 19.4 % Platelet Count 230 TH/MM3 Mean Platelet Volume 8.3 FL Neutrophils (%) (Auto) 81.9 % Lymphocytes (%) (Auto) 5.3 % Monocytes (%) (Auto) 9.9 % Eosinophils (%) (Auto) 1.8 % Basophils (%) (Auto) 1.1 % Neutrophils # (Auto) 4.8 TH/MM3 Lymphocytes # (Auto) 0.3 TH/MM3 Monocytes # (Auto) 0.6 TH/MM3 Eosinophils # (Auto) 0.1 TH/MM3 Basophils # (Auto) 0.1 TH/MM3 CBC Comment DIFF FINAL Differential Comment Blood Urea Nitrogen 48 MG/DL Creatinine 1.72 MG/DL Random Glucose 199 MG/DL Calcium Level 8.6 MG/DL Sodium Level 139 MEQ/L Potassium Level 4.7 MEQ/L Chloride Level 98 MEQ/L Carbon Dioxide Level 36.8 MEQ/L Anion Gap 4 MEQ/L Estimat Glomerular Filtration Rate 38 ML/MIN Administered Medications Medications (Trade) Dose Ordered Sig/Faviola Route PRN Reason Start Time Stop Time Status Last Admin Dose Admin Sodium Chloride (NS Flush) 2 ml UNSCH PRN IV FLUSH FLUSH AFTER USING IV ACCESS 07/10/17 19:45 07/12/17 05:43 Sodium Chloride (NS Flush) 2 ml BID IV FLUSH 07/10/17 21:00 07/11/17 21:56 Acetaminophen/ Hydrocodone Bitart (Sycamore 5-325 Mg) 1 tab Q4H PRN PO PAIN SCALE 3 TO 5 07/10/17 19:45 07/12/17 07:28 Morphine Sulfate (Morphine Inj) 2 mg Q3H PRN IV PUSH Pain 6-10 07/10/17 19:45 07/12/17 05:42 Senna/Docusate Sodium (Helene-Colace) 1 tab BID PO 07/10/17 21:00 07/12/17 08:50 Amitriptyline HCl (Elavil) 50 mg HS PO 07/10/17 21:00 07/11/17 21:54 Atorvastatin Calcium (Lipitor) 40 mg DAILY PO 07/11/17 09:00 07/12/17 08:47 Cholecalciferol (Vitamin D3) 5,000 units HS PO 07/10/17 21:00 07/11/17 21:53 Cyanocobalamin (Vitamin B12) 100 mcg DAILY PO 07/11/17 09:00 07/12/17 08:47 Digoxin (Lanoxin) 0.125 mg DAILY PO 07/11/17 09:00 07/12/17 08:48 Finasteride (Proscar) 5 mg HS PO 07/10/17 21:00 07/11/17 21:53 Gabapentin (Neurontin) 300 mg TID PO 07/11/17 09:00 07/12/17 08:51 Insulin Detemir (Levemir Inj) 15 units HS SQ 07/10/17 21:00 07/11/17 22:15 Lorazepam (Ativan) 2 mg Q6H PRN PO ANXIETY 07/10/17 20:15 07/12/17 09:03 Nebivolol (Bystolic) 10 mg BID PO 07/10/17 21:00 07/11/17 00:01 Torsemide (Demadex) 40 mg BID PO 07/10/17 21:00 07/11/17 00:00 Trazodone HCl (Desyrel) 50 mg HS PO 07/10/17 21:00 07/11/17 21:54 Pantoprazole Sodium (Protonix) 40 mg BID PO 07/10/17 21:00 07/12/17 08:48 Ferrous Sulfate (Ferrous Sulfate) 325 mg BID PO 07/11/17 09:00 07/12/17 08:47 Ascorbic Acid (Vitamin C) 250 mg BID PO 07/11/17 09:00 07/12/17 08:47 Miscellaneous (Pill Splitter) 1 ea UNSCH PRN OTHER SEE LABEL COMMENTS 07/11/17 09:00 07/12/17 08:48 Insulin Aspart (NovoLOG SUPPLEMENTAL SCALE) 1 ACHS SLIDING SCALE SQ 07/11/17 17:00 07/12/17 08:51 Objective Remarks GENERAL: Elderly male resting in bed in no acute distress SKIN: Dressings to right lower extremity serosanguineous drainage noted. HEAD: Normocephalic. EYES: No injection or drainage. NECK: Supple, trachea midline. No JVD or lymphadenopathy. CARDIOVASCULAR: 4/6 murmur noted. RESPIRATORY: Clear anteriorly. On 2 L nasal cannula. GASTROINTESTINAL: Abdomen soft, non-tender, nondistended. EXTREMITIES: Bilateral lower legs edematous, more so on the left. Dressing to right lower extremity. MUSCULOSKELETAL: Generalized weakness NEUROLOGICAL: No obvious focal deficit. Awake, alert, and oriented x3. Assessment/Plan Problem List: (1) Iron deficiency anemia ICD Codes: D50.9 - Iron deficiency anemia, unspecified Plan: 07/12/17: Patient is status post 1 unit of packed red blood cell transfusion. Tolerated iron sucrose this am. Await GI consult. Followup in clinic once discharged. -- MARYAM due to GI bleeding -- Hx AVM recently cauterized; has had multiple scopes outpatient as well as pill endoscopy -- Well known to our outpatient clinic for frequent iron, PRBC transfusions. -- GI consulted for further recommendations Assessment 81-year-old male with history of iron deficiency anemia admitted for fall Attending Statement The exam, history, and the medical decision-making described in the above note were completed with the assistance of the mid-level provider. I reviewed and agree with the findings presented. I attest that I had a [id number] encounter with the patient on the same day, and personally performed and documented my assessment and findings in the medical record. Patient denies Any new complains. Status post Blood transfusion and iron infusion. await G.I. consult Sherly Ferrara Jul 12, 2017 11:16 Michele Garcia MD Jul 13, 2017 01:29
--- NOTE | 2017-07-12 13:01 | PD.CONS ---
HPI History of Present Illness This is a 81 year old male who was brought to the emergency room for evaluation of knee pain after a mechanical fall. He was noted to have severe anemia with an H&H 7.2/24.3. He was transfused 2 units of PRBC and his repeat is 8.7/28.5. He was evaluated by our service for hemoccult positive stool and had a EGD/ Colonoscopy (01/26/17)---> Navin LA class a esophagitis noted, diaphragmatic hiatus was present that measured 2 scope diameters, small nodule was located in the gastric antrum, normal duodenal mucosa in the bulb and second portion of the duodenum. Significant amount of stool was present throughout the entire examined colon. There was evidence of a prior ileocolonic surgical anastomosis in the ascending colon. A small flat polyp was found in the ascending colon, multiple biopsies of the lesion were performed, retroflex views revealed no abnormalities, suboptimal bowel prep limited the exam. It is recommended that he have a repeat colonoscopy in 6 months. He had a capsule endoscopy (05/27/17)- --> small bowel angiectasia, possible source of occult bleeding/anemia. The plan was to monitor hemoglobin and consider balloon enteroscopy if significant anemia or GI bleeding. He is also followed by hematology and receiving iron transfusions, but remains significantly anemic and they feel that the most likely source of iron deficiency as well as GI bleeding. GI has been consulted for further evaluation. He denies any obvious GI bleeding. He had dark stools while he was receiving oral iron supplements, but is no longer having this. He denies any nausea, vomiting, abdominal pain, diarrhea, melena, or hematochezia. He does have occasional constipation. His coumadin is on hold and INR is 1.9. (Saray Wilkinson) PFSH Past Medical History Allergic rhinitis Anxiety Atrial fibrillation Coronary artery disease Cardiomyopathy Congestive heart failure Chronic kidney disease stage III Depression Enlarged prostate Gout Hiatal hernia Hypertension Hyperlipidemia Osteoarthritis Type 2 diabetes History of Eckert's esophagus Small bowel angiectasia History of colon polyps Esophagitis History of skin cancer History of sick sinus syndrome History of patent foramen ovale Past Surgical History Appendectomy AICD placement Cataract surgery Cholecystectomy EGD/colonoscopy Capsule endoscopy Hernia repair Knee replacement Low back surgery Carpal tunnel surgery Diagnostic thoracentesis (Saray Wilkinson) Coded Allergies: MRI PRECAUTION (Verified Allergy, Severe, 07/10/17) Uncoded Allergies: STEROIDS (Adverse Reaction, Mild, 01/10/17) ELEVATED BLOOD SUGAR Medications Allergies Coded Allergies Type Severity Reaction Last Updated Verified MRI PRECAUTION Allergy Severe 07/10/17 Yes Uncoded Allergies Type Severity Reaction Last Updated Verified STEROIDS Adverse Reaction Mild 01/10/17 Active Scripts Medications Dose Route/Sig Max Daily Dose Days Date Category Dose Instructions Lantus Inj (Insulin Glargine) 1,000 Unit/10 Ml Vial 15 Units SQ HS 07/10/17 Reported Warfarin 4 Mg Tab 4 Mg PO DAILY 07/10/17 Reported Walker/Adult/Folding (Device) 1 Mis Mis Ea .ROUTE DIRECTED 07/10/17 Rx Tylenol-Codeine #3 (Acetaminophen-Codeine) 300-30 mg Tab 1 Tab PO Q4H PRN 07/10/17 Rx Duoneb (Ipratropium-Albuterol Neb) 0.5-2.5 Mg/3 Ml Neb 3 Ml NEB TID 06/08/17 Reported Senna S (Sennosides-Docusate Sodium) 8.6-50 Mg Tab 1 Tab PO DAILY PRN 06/08/17 Reported Tylenol (Acetaminophen) 325 Mg Tab 650 Mg PO Q6H PRN 06/08/17 Reported Vitamin D3 (Cholecalciferol) 5,000 Unit Cap 5,000 Units PO HS 06/08/17 Reported Amitriptyline (Amitriptyline HCl) 50 Mg Tab 50 Mg PO HS 06/08/17 Reported Acarbose 100 Mg Tab 100 Mg PO DAILY IN THE PM 06/08/17 Reported Take with first bite of meal. Potassium Chloride ER (Potassium Chloride) 10 Meq Tab 20 Meq PO BID 06/08/17 Reported Warfarin 5 Mg Tab 5 Mg PO DAILY 03/02/17 Reported Trazodone (Trazodone HCl) 50 Mg Tab 50 Mg PO HS 03/02/17 Reported Gabapentin 300 Mg Cap 300 Mg PO TID 03/02/17 Reported Oxygen tank (Oxygen) 1 Ea Tank 2 Liter JAKE.CANULA CONTINUOUS 01/11/17 Rx Oxygen Concentrator Portable Gaseous 2 L/min via Nasal Cannula Continuous For 99 months Digoxin 0.125 Mg Tab 0.125 Mg PO DAILY 01/11/17 Rx Cormax Scalp Topical (Clobetasol Propionate) 0.05% Soln 1 Applic TOPICAL BID PRN 01/07/17 Reported Hydrocodone-Acetaminophen 5-325 mg Tab 2 Tab PO Q6H PRN 11/29/16 Reported Vitamin B12 (Cyanocobalamin) 100 Mcg Tab 100 Mcg PO DAILY 11/29/16 Reported Lorazepam 2 Mg Tab 2 Mg PO Q6H PRN 08/16/16 Reported Acarbose 100 Mg Tab 200 Mg PO DAILY IN THE AM 08/16/16 Reported Take with first bite of meal. Omeprazole 40 Mg Cap 40 Mg PO BID 08/16/16 Reported Atorvastatin (Atorvastatin Calcium) 40 Mg Tab 40 Mg PO DAILY 08/16/16 Reported Torsemide 20 Mg Tab 40 Mg PO BID 08/16/16 Reported Lisinopril 20 Mg Tab 20 Mg PO DAILY 08/16/16 Reported Bystolic (Nebivolol) 10 Mg Tab 10 Mg PO BID 08/16/16 Reported Finasteride 5 Mg Tab 5 Mg PO HS 08/16/16 Reported Do not crush. Family History Family history of diabetes, hypertension Social History Quit smoking in 2017 prior to that smoked 1 PPD No ETOH use (Saray Wilkinson) GI Exam Vitals I&O Vital Signs Date Time Temp Pulse Resp B/P (MAP) Pulse Ox O2 Delivery O2 Flow Rate FiO2 07/12/17 06:18 96.4 70 18 126/60 91 07/12/17 06:18 96.4 70 18 126/60 91 07/12/17 03:51 98.5 70 18 110/51 95 07/12/17 03:33 98.2 70 18 105/56 93 07/12/17 02:39 98.0 69 20 114/55 (74) 93 07/12/17 02:39 98.0 69 20 114/55 93 07/12/17 00:15 97.5 70 20 119/56 97 07/12/17 00:02 97.5 70 20 118/52 95 07/12/17 00:00 97.7 70 17 116/59 (78) 98 07/11/17 19:00 97.7 70 17 116/59 (78) 98 07/11/17 18:10 16 07/11/17 15:50 97.9 70 18 116/58 (77) 97 07/11/17 13:34 98.1 73 16 122/58 (79) 94 I/O 11/20/17 07/11/17 07/11/17 07/12/17 07/12/17 07/12/17 06:59 14:59 22:59 06:59 14:59 22:59 Intake Total 480 ml 2268 ml Output Total 500 ml Balance 480 ml 1768 ml Intake Oral 480 ml 360 ml Packed Cells 1200 ml Blood Product IV Normal Saline Flush 708 ml Output Urine Total 500 ml # Voids 2 # Bowel Movements 0 0 Imaging Last Impressions Tibia/Fibula X-Ray 07/10/17 0000 Signed Impressions: Service Date/Time: Monday, July 10, 2017 16:17 - CONCLUSION: Soft tissue swelling/hematoma suspected subcutaneous tissues without obvious fracture. Harley Medellin MD Pelvis X-Ray 07/10/17 0000 Signed Impressions: Service Date/Time: Monday, July 10, 2017 16:27 - CONCLUSION: No definite fractures. Harley Medellin MD Knee X-Ray 07/10/17 0000 Signed Impressions: Service Date/Time: Monday, July 10, 2017 16:22 - CONCLUSION: Small knee joint effusion and prominent soft tissue swelling is seen anterior to the knee. Harley Medellin MD Laboratory Test 07/11/17 13:50 07/11/17 14:30 07/12/17 10:00 Iron Level 62 MCG/DL Total Iron Binding Capacity 358 MCG/DL Percent Iron Saturation 17.3 % Transferrin 256 MG/DL Ferritin 48 NG/ML Digoxin Level 1.2 NG/ML Hemoglobin 6.9 GM/DL 8.7 GM/DL Hematocrit 22.4 % 28.5 % Total Creatine Kinase 25 U/L White Blood Count 5.8 TH/MM3 Red Blood Count 3.51 MIL/MM3 Mean Corpuscular Volume 81.2 FL Mean Corpuscular Hemoglobin 24.8 PG Mean Corpuscular Hemoglobin Concent 30.5 % Red Cell Distribution Width 19.4 % Platelet Count 230 TH/MM3 Mean Platelet Volume 8.3 FL Neutrophils (%) (Auto) 81.9 % Lymphocytes (%) (Auto) 5.3 % Monocytes (%) (Auto) 9.9 % Eosinophils (%) (Auto) 1.8 % Basophils (%) (Auto) 1.1 % Neutrophils # (Auto) 4.8 TH/MM3 Lymphocytes # (Auto) 0.3 TH/MM3 Monocytes # (Auto) 0.6 TH/MM3 Eosinophils # (Auto) 0.1 TH/MM3 Basophils # (Auto) 0.1 TH/MM3 CBC Comment DIFF FINAL Differential Comment Blood Urea Nitrogen 48 MG/DL Creatinine 1.72 MG/DL Random Glucose 199 MG/DL Calcium Level 8.6 MG/DL Sodium Level 139 MEQ/L Potassium Level 4.7 MEQ/L Chloride Level 98 MEQ/L Carbon Dioxide Level 36.8 MEQ/L Anion Gap 4 MEQ/L Estimat Glomerular Filtration Rate 38 ML/MIN Physical Examination HEENT: Normocephalic; atraumatic; no jaundice CHEST: CTA CARDIAC: Irregular ABDOMEN: Soft, nondistended, nontender; no hepatosplenomegaly; bowel sounds are present in all four quadrants. SKIN: Normal; no rash; no jaundice. 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 (Saray Wilkinson) Assessment and Plan Plan ASSESSMENT: - Severe MARYAM, Hemoccult (+) Stool. Came to ER after a mechanical fall, noted to have severe anemia. S/P evaluation for hemoccult positive stool. EGD/Colonoscopy (01/26/17)---> Navin LA class a esophagitis noted, diaphragmatic hiatus was present that measured 2 scope diameters, small nodule was located in the gastric antrum, normal duodenal mucosa in the bulb and second portion of the duodenum. Significant amount of stool was present throughout the entire examined colon. There was evidence of a prior ileocolonic surgical anastomosis in the ascending colon. A small flat polyp was found in the ascending colon, multiple biopsies of the lesion were performed , retroflex views revealed no abnormalities, suboptimal bowel prep limited the exam. It is recommended that he have a repeat colonoscopy in 6 months. Capsule endoscopy (05/27/17)---> small bowel angiectasia, possible source of occult bleeding/anemia. The plan was to monitor hemoglobin and consider balloon enteroscopy if significant anemia or GI bleeding. Hematology following. S/P 2 units PRBC. HH 8.7/28.5. ? r/t small bowel ectasia, cannot r/o source in large intestine given poor prep on last colonoscopy. Recommend Enteroscopy with colonoscopy in am. If negative, will likely need to go to [place] for Double Balloon Enteroscopy- could be done as outpatient if stable. - S/P Mechanical fall, RLE hematoma per attending. - Atrial fibrillation, CHF on coumadin at home, currently on hold. INR 1.9 - DM per attending. PLAN: - Enteroscopy and colonoscopy in am - Obtain consents - Clear liquids - NPO after MN - Golytely prep - PPI - Iron transfusions per hematology - Hematology following - If above negative, will likely need double balloon enteroscopy - Supportive care - Further recommendations to follow based on results of above - Pt seen and examined by Dr. Alicia and myself and this note is written on his behalf (Saray Wilkinson) Physician Comments Seen and examined with JS, enteroscopy/colonoscopy planned for tomorrow. Monitor labs, will follow. Thankyou (Akilah Alicia MD) Saray Wilkinson Jul 12, 2017 13:01 Akilah Alicia MD Jul 12, 2017 16:22
[2017-07-12] MEDS ORDERED: PEG (High)/E-LYTE SOLN 4000 ML BTL PO ONE (16:00)
[2017-07-12] MEDS ORDERED: METOPROLOL TARTRATE 25 MG TAB PO PRN (20:15)
[2017-07-12] MEDS ORDERED: SODIUM CHLORID 0.9% 500 ML IV PRN (20:15)
[2017-07-12] MEDS ORDERED: CHLORHEXIDINE GLUCONATE 2 % 1 PACK (2 CLOTHS) TOPICAL PRN (20:15)
[2017-07-12] MEDS ORDERED: LACTATED RINGER'S 1000 ML IV PRN (20:15)
[2017-07-12] MEDS ORDERED: POVIDONE IODINE 5% (ANTISEPSIS KIT) 4 APPLICATIONS EACH NARE PRN (20:15)
[2017-07-12] MEDS: traZODone HCL 50 MG TAB PO SCH (21:46)
[2017-07-12] MEDS: AMITRIPTYLINE HCL 50 MG TAB PO SCH (21:47)
[2017-07-12] MEDS: FINASTERIDE 5 MG TAB PO SCH (21:47)
[2017-07-12] MEDS: CHOLECALCIFEROL (VIT D3) 5000 UNIT CAP PO SCH (21:47)
[2017-07-12] MEDS: INSULIN DETEMIR 100 UNITS/ML VIAL SQ SCH (21:48)
[2017-07-13 00:41] VITALS: BP 136/68; PULSE 68; RESP 20; TEMP 97; O2SAT 97
[2017-07-13] MEDS: MORPHINE SULFATE 4 MG/ML INJ IV PUSH PRN (02:53)
[2017-07-13 04:00] VITALS: BP 129/78; PULSE 78; RESP 20; TEMP 98.3; O2SAT 96
[2017-07-13] MEDS: DOCUSATE SODIUM 50 MG/SENNA 8.6 MG TAB PO SCH ×2 (06:06→20:47)
[2017-07-13] MEDS: ACETAMINOPHEN/HYDROcodone 325 MG/5 MG TAB PO PRN (06:06)
[2017-07-13 06:46] LABS: INTERNATIONAL NORMALIZED RATIO 1.3 RATIO; PROTHROMBIN TIME - PATIENT 14.3 SEC (9.8-11.6)
[2017-07-13 06:48] LABS: AUTOMATED NEUTROPHIL # 5.5 TH/MM3 (1.8-7.7); BASOPHIL # 0.1 TH/MM3 (0-0.2); BASOPHIL % 1.9 % (0.0-2.0); EOSINOPHIL # 0.2 TH/MM3 (0-0.4); EOSINOPHIL % 2.2 % (0.0-4.0); HEMO FLAGS DIFF FINAL; LYMPH % 6.3 % (9.0-44.0); LYMPHOCYTE # 0.4 TH/MM3 (1.0-4.8); MEAN CELL VOLUME 81.7 FL (80.0-100.0); MEAN CORPUSCULAR HEMOGLOBIN 26.1 PG (27.0-34.0); MEAN CORPUSCULAR HGB CONC 31.9 % (32.0-36.0); MONO % 10.7 % (0.0-8.0); NEUT % 78.9 % (16.0-70.0); PLATELET COUNT 236 TH/MM3 (150-450); RED BLOOD COUNT 3.55 MIL/MM3 (4.50-5.90); RED CELL DISTRIBUTION WIDTH 19.4 % (11.6-17.2)
[2017-07-13 08:00] VITALS: BP 137/69; PULSE 72; RESP 18; TEMP 96; O2SAT 92
[2017-07-13] MEDS: INSULIN ASPART SUPPLEMENTAL SCALE SQ SCH ×4 (08:00→20:48)
[2017-07-13] MEDS ORDERED: BISACODYL EC 5 MG TABEC PO ONE (08:15)
[2017-07-13] MEDS: GABAPENTIN 300 MG CAP PO SCH ×3 (08:20→18:46)
[2017-07-13] MEDS: LORazepam 2 MG TAB PO PRN ×2 (08:20→18:46)
[2017-07-13] MEDS: PANTOPRAZOLE SOD 40 MG DELAYED RELEASE TAB PO SCH ×2 (08:21→20:47)
[2017-07-13] MEDS: LISINOPRIL 20 MG TAB PO SCH (08:21)
[2017-07-13] MEDS: TORSEMIDE 20 MG TAB PO SCH ×2 (08:21→20:47)
[2017-07-13] MEDS: DIGOXIN 0.125 MG TAB PO SCH (08:21)
[2017-07-13] MEDS: NEBIVOLOL 10 MG TAB PO SCH ×2 (08:21→20:48)
[2017-07-13] MEDS: CYANOCOBALAMIN 100 MCG TAB PO SCH (08:22)
[2017-07-13] MEDS: SODIUM CHLORIDE 0.9% FLUSH 10 ML FLUSH IV FLUSH SCH ×2 (08:22→20:48)
[2017-07-13] MEDS: ATORVASTATIN 40 MG TAB PO SCH (08:22)
[2017-07-13] MEDS: ASCORBIC ACID 500 MG TAB PO SCH ×2 (08:22→20:46)
[2017-07-13] MEDS: FERROUS SULFATE 325 MG (65 MG ELEMENTAL IRON) TAB PO SCH ×2 (08:22→20:46)
--- NOTE | 2017-07-13 09:02 | HHI.PR ---
Subjective Remarks Patient getting prepped for colonoscopy. He did not drink all of the GoLYTELY. GI planning for endoscopy today. Objective Vitals Vital Signs Date Time Temp Pulse Resp B/P (MAP) Pulse Ox O2 Delivery O2 Flow Rate FiO2 07/13/17 04:00 98.3 78 20 129/78 (95) 96 07/13/17 00:41 97.0 68 20 136/68 (90) 97 07/12/17 21:06 97.5 70 19 139/70 (93) 96 07/12/17 16:00 97.7 70 16 126/60 (82) 93 07/12/17 12:00 96.3 70 16 109/52 (71) 94 I/O 07/12/17 07/12/17 07/12/17 07/13/17 07/13/17 07/13/17 07:00 15:00 23:00 07:00 15:00 23:00 Intake Total 2268 ml 100 ml Output Total 500 ml 1200 ml Balance 1768 ml 100 ml -1200 ml Intake Oral 360 ml IV Total 100 ml Packed Cells 1200 ml Blood Product IV Normal Saline Flush 708 ml Output Urine Total 500 ml 1200 ml # Bowel Movements 0 Result Diagram: 07/13/17 0538 07/12/17 1000 Objective Remarks GENERAL: Elderly male in no apparent distress. CARDIOVASCULAR: Normal rate and regular rhythm without murmurs, gallops, or rubs. RESPIRATORY: Good respiratory efforts. Breath sounds equal and clear to auscultation bilaterally. GASTROINTESTINAL: Abdomen soft, non-tender, non-distended. Normal active bowel sounds MUSCULOSKELETAL: Left knee with a significant effusion, tender to palpation. Range of motion somewhat limited secondary to pain. Right lower extremity is wrapped with a clean dressing. NEURO: Alert & Oriented x4 to person, place, time, situation. Moves all ext x4. Generalized weakness PSYCH: Appropriate mood and affect. A/P Problem List: (1) Fall ICD Code: W19.XXXA - Unspecified fall, initial encounter (2) Gait instability ICD Code: R26.81 - Unsteadiness on feet (3) Effusion, left knee ICD Code: M25.462 - Effusion, left knee Status: Acute (4) Hematoma of right lower extremity ICD Code: S80.11XA - Contusion of right lower leg, initial encounter Status: Acute (5) A-fib ICD Code: I48.91 - Unspecified atrial fibrillation (6) CHF (congestive heart failure) ICD Code: I50.9 - Heart failure, unspecified (7) DM (diabetes mellitus) ICD Code: E11.9 - Type 2 diabetes mellitus without complications Assessment and Plan 81-year-old male with: - Fall: s/p mechanical fall at home after tripping on carpet, no LOC or head trauma reported. - Left Knee Effusion: secondary to fall, left knee tenderness to palpation, decreased ROM. Left Knee X-ray w/ small knee joint effusion and prominent soft tissue swelling, images reviewed by me. Analgesics as needed. Patient is deconditioned. Will need SNF to continue rehabilitation efforts. - RLE Hematoma: secondary to fall/injury, Tib-Fib X-ray w/ soft tissue swelling/hematoma, no fracture, images reviewed by me. On Coumadin for A-fib, INR therapeutic at 2.0. Will monitor. - Acute on chronic anemia : Hemoglobin was 7.2 dropped to 6.9 Which may be contributing to the patient frequent fall, appreciate hematology consult who indicated the patient has iron deficiency anemia from chronic GI bleeding. 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 He has been given iron infusion. Patient received PRBC transfusion and hemoglobin improved. GI is consulted. - Intermittent GI bleeding and history of AVM. GI is following. Plan for colonoscopy today. - Gait Instability: secondary to above. Unable to ambulate safely without assistance at this time. Continue PT, will need SNF. Patient is now agreeable. - A-fib: Chronic. On Coumadin. INR therapeutic, repeat INR in am. Resume home medications. - CHF: Chronic. Diastolic. Echo 06/09/17 w/ EF 55-60%. However he does have reduced right ventricular systolic function with dilated right ventricle and atrium and increased pulmonary hypertension 60 mmHg, Resume home medications. Monitor I/O. - DM: Sliding scale w/ Accu-Cheks. Resume home Insulin. - DVT Prophylaxis: On Coumadin as above. Discharge Planning Pending colonoscopy per GI. Plan to DC to SNF. Claude Rivas MD Jul 13, 2017 09:02
--- NOTE | 2017-07-13 09:09 | EKG ---
Date Performed: 07/12/2017 Time Performed: 20:55:50 PTAGE: 81 years EKG: ELECTRONIC VENTRICULAR PACEMAKER ABNORMAL RHYTHM ECG PREVIOUS TRACING : 06/08/2017 12.42 DOCTOR: Ino Han Interpretating Date/Time 07/13/2017 09:07:41
[2017-07-13 12:00] VITALS: BP 113/63; PULSE 70; RESP 18; TEMP 95.5; O2SAT 92
--- NOTE | 2017-07-13 13:09 | PD.ONC.PN ---
Subjective Subjective Remarks Afebrile Still has soreness in both legs Denies other acute complaints "I'm catching up on my sleep" Objective Data Date Time Temp Pulse Resp B/P (MAP) Pulse Ox O2 Delivery O2 Flow Rate FiO2 07/13/17 08:00 96.0 72 18 137/69 (91) 92 07/13/17 04:00 98.3 78 20 129/78 (95) 96 07/13/17 00:41 97.0 68 20 136/68 (90) 97 07/12/17 21:06 97.5 70 19 139/70 (93) 96 07/12/17 16:00 97.7 70 16 126/60 (82) 93 07/13/17 07/13/17 07/13/17 07:00 15:00 23:00 Output Total 1200 ml Balance -1200 ml Result Diagram: 07/13/17 0538 07/12/17 1000 Laboratory Results Laboratory Tests Test 07/13/17 05:38 White Blood Count 7.0 TH/MM3 Red Blood Count 3.55 MIL/MM3 Hemoglobin 9.3 GM/DL Hematocrit 29.0 % Mean Corpuscular Volume 81.7 FL Mean Corpuscular Hemoglobin 26.1 PG Mean Corpuscular Hemoglobin Concent 31.9 % Red Cell Distribution Width 19.4 % Platelet Count 236 TH/MM3 Mean Platelet Volume 8.9 FL Neutrophils (%) (Auto) 78.9 % Lymphocytes (%) (Auto) 6.3 % Monocytes (%) (Auto) 10.7 % Eosinophils (%) (Auto) 2.2 % Basophils (%) (Auto) 1.9 % Neutrophils # (Auto) 5.5 TH/MM3 Lymphocytes # (Auto) 0.4 TH/MM3 Monocytes # (Auto) 0.7 TH/MM3 Eosinophils # (Auto) 0.2 TH/MM3 Basophils # (Auto) 0.1 TH/MM3 CBC Comment DIFF FINAL Differential Comment Prothrombin Time 14.3 SEC Prothromb Time International Ratio 1.3 RATIO Administered Medications Medications (Trade) Dose Ordered Sig/Faviola Route PRN Reason Start Time Stop Time Status Last Admin Dose Admin Sodium Chloride (NS Flush) 2 ml UNSCH PRN IV FLUSH FLUSH AFTER USING IV ACCESS 07/10/17 19:45 07/12/17 05:43 Sodium Chloride (NS Flush) 2 ml BID IV FLUSH 07/10/17 21:00 07/13/17 08:22 Acetaminophen/ Hydrocodone Bitart ([place] 5-325 Mg) 1 tab Q4H PRN PO PAIN SCALE 3 TO 5 07/10/17 19:45 07/13/17 06:06 Morphine Sulfate (Morphine Inj) 2 mg Q3H PRN IV PUSH Pain 6-10 07/10/17 19:45 07/13/17 02:53 Senna/Docusate Sodium (Helene-Colace) 1 tab BID PO 07/10/17 21:00 07/13/17 06:06 Bisacodyl (Dulcolax Supp) 10 mg DAILY PRN RECTAL SEVERE CONSITIPATION 07/10/17 19:45 07/13/17 02:29 Amitriptyline HCl (Elavil) 50 mg HS PO 07/10/17 21:00 07/12/17 21:47 Atorvastatin Calcium (Lipitor) 40 mg DAILY PO 07/11/17 09:00 07/12/17 08:47 Cholecalciferol (Vitamin D3) 5,000 units HS PO 07/10/17 21:00 07/12/17 21:47 Cyanocobalamin (Vitamin B12) 100 mcg DAILY PO 07/11/17 09:00 07/12/17 08:47 Digoxin (Lanoxin) 0.125 mg DAILY PO 07/11/17 09:00 07/13/17 08:21 Finasteride (Proscar) 5 mg HS PO 07/10/17 21:00 07/12/17 21:47 Gabapentin (Neurontin) 300 mg TID PO 07/11/17 09:00 07/13/17 08:20 Insulin Detemir (Levemir Inj) 15 units HS SQ 07/10/17 21:00 07/12/17 21:48 Lisinopril (Prinivil) 20 mg DAILY PO 07/11/17 09:00 07/13/17 08:21 Lorazepam (Ativan) 2 mg Q6H PRN PO ANXIETY 07/10/17 20:15 07/13/17 08:20 Nebivolol (Bystolic) 10 mg BID PO 07/10/17 21:00 07/13/17 08:21 Torsemide (Demadex) 40 mg BID PO 07/10/17 21:00 07/13/17 08:21 Trazodone HCl (Desyrel) 50 mg HS PO 07/10/17 21:00 07/12/17 21:46 Pantoprazole Sodium (Protonix) 40 mg BID PO 07/10/17 21:00 07/12/17 21:47 Ferrous Sulfate (Ferrous Sulfate) 325 mg BID PO 07/11/17 09:00 07/12/17 21:47 Ascorbic Acid (Vitamin C) 250 mg BID PO 07/11/17 09:00 07/12/17 21:47 Miscellaneous (Pill Splitter) 1 ea UNSCH PRN OTHER SEE LABEL COMMENTS 07/11/17 09:00 07/12/17 08:48 Insulin Aspart (NovoLOG SUPPLEMENTAL SCALE) 1 ACHS SLIDING SCALE SQ 07/11/17 17:00 07/12/17 13:05 Objective Remarks GENERAL: Elderly male resting in bed asleep in no distress; awakens easily to verbal stimuli SKIN: Dressings to right lower extremity serosanguineous drainage noted. HEAD: Normocephalic. EYES: No injection or drainage. NECK: Supple, trachea midline. No JVD or lymphadenopathy. CARDIOVASCULAR: 4/6 murmur noted. RESPIRATORY: Clear anteriorly. On 2 L nasal cannula. GASTROINTESTINAL: Abdomen soft, non-tender, nondistended. EXTREMITIES: Bilateral lower legs edematous, more so on the left. Dressing to right lower extremity. MUSCULOSKELETAL: Generalized weakness NEUROLOGICAL: No obvious focal deficit. Awake, alert, and oriented x3. Assessment/Plan Problem List: (1) Iron deficiency anemia ICD Codes: D50.9 - Iron deficiency anemia, unspecified Plan: 07/13/17: Monitor CBC. GI team planning for scope tomorrow. He has been approved to go to rehabilitation at [facility]. We will see him once discharged in outpatient clinic for follow-up. -- MARYAM due to GI bleeding -- Hx AVM recently cauterized; has had multiple scopes outpatient as well as pill endoscopy -- Well known to our outpatient clinic for frequent iron, PRBC transfusions. -- GI consulted for further recommendations Assessment 81-year-old male with history of iron deficiency anemia admitted for fall Attending Statement The exam, history, and the medical decision-making described in the above note were completed with the assistance of the mid-level provider. I reviewed and agree with the findings presented. I attest that I had a [id number] encounter with the patient on the same day, and personally performed and documented my assessment and findings in the medical record. Patient has difficulty walking due to recent injury to Legs. Anemia is improving colonoscopy today. Discussed with patient and . Vision is not stable to go home. He has agreed to go to rehab. Okay to discharge after the procedure Sherly Ferrara Jul 13, 2017 13:09 Michele Garcia MD Jul 13, 2017 23:49
[2017-07-13] MEDS ORDERED: PEG (High)/E-LYTE SOLN 4000 ML BTL PO ONE ×2 (14:00)
--- NOTE | 2017-07-13 14:06 | HHI.GIFU ---
Subjective Remarks Pt resting in bed. Did not offer any complaints. When told he'd be prepping for colonoscopy again tonight, "I might, if I feel like it." (Noemy Chavis) Objective Vitals I&O Vital Signs Date Time Temp Pulse Resp B/P (MAP) Pulse Ox O2 Delivery O2 Flow Rate FiO2 07/13/17 12:00 95.5 70 18 113/63 (80) 92 07/13/17 08:00 96.0 72 18 137/69 (91) 92 07/13/17 04:00 98.3 78 20 129/78 (95) 96 07/13/17 00:41 97.0 68 20 136/68 (90) 97 07/12/17 21:06 97.5 70 19 139/70 (93) 96 07/12/17 16:00 97.7 70 16 126/60 (82) 93 I/O 07/12/17 07/12/17 07/12/17 07/13/17 07/13/17 07/13/17 07:00 15:00 23:00 07:00 15:00 23:00 Intake Total 2268 ml 100 ml Output Total 500 ml 1200 ml Balance 1768 ml 100 ml -1200 ml Intake Oral 360 ml IV Total 100 ml Packed Cells 1200 ml Blood Product IV Normal Saline Flush 708 ml Output Urine Total 500 ml 1200 ml # Bowel Movements 0 Laboratory Laboratory Tests Test 07/13/17 05:38 White Blood Count 7.0 Red Blood Count 3.55 Hemoglobin 9.3 Hematocrit 29.0 Mean Corpuscular Volume 81.7 Mean Corpuscular Hemoglobin 26.1 Mean Corpuscular Hemoglobin Concent 31.9 Red Cell Distribution Width 19.4 Platelet Count 236 Mean Platelet Volume 8.9 Neutrophils (%) (Auto) 78.9 Lymphocytes (%) (Auto) 6.3 Monocytes (%) (Auto) 10.7 Eosinophils (%) (Auto) 2.2 Basophils (%) (Auto) 1.9 Neutrophils # (Auto) 5.5 Lymphocytes # (Auto) 0.4 Monocytes # (Auto) 0.7 Eosinophils # (Auto) 0.2 Basophils # (Auto) 0.1 CBC Comment DIFF FINAL Differential Comment Prothrombin Time 14.3 Prothromb Time International Ratio 1.3 Physical Exam HEENT: normocephalic; atraumatic; no jaundice. CHEST: CTA CARDIAC: RRR ABDOMEN: Soft, nondistended, nontender; no hepatosplenomegaly; bowel sounds are present in all four quadrants. EXTREMITIES: No clubbing, cyanosis, or edema. SKIN: Normal; no rash; no jaundice. 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 Came to ER after a mechanical fall, noted to have severe anemia. S/P evaluation for hemoccult positive stool. EGD/Colonoscopy (01/26/17)---> Navin LA class a esophagitis noted, diaphragmatic hiatus was present that measured 2 scope diameters, small nodule was located in the gastric antrum, normal duodenal mucosa in the bulb and second portion of the duodenum. Significant amount of stool was present throughout the entire examined colon. There was evidence of a prior ileocolonic surgical anastomosis in the ascending colon. A small flat polyp was found in the ascending colon, multiple biopsies of the lesion were performed , retroflex views revealed no abnormalities, suboptimal bowel prep limited the exam. It is recommended that he have a repeat colonoscopy in 6 months. Capsule endoscopy (05/27/17)---> small bowel angiectasia, possible source of occult bleeding/anemia. The plan was to monitor hemoglobin and consider balloon enteroscopy if significant anemia or GI bleeding. Hematology following. S/P 2 units PRBC, HH improved. was supposed to have enteroscopy/colonoscopy today but he did not do prep. will try again tomorrow If negative, will likely need to go to [place] for Double Balloon Enteroscopy- could be done as outpatient if stable. - S/P Mechanical fall, RLE hematoma per attending. - Atrial fibrillation, CHF on coumadin at home, currently on hold. INR 1.3 - DM per attending. PLAN: - Enteroscopy and colonoscopy in am - continue clear liquids - NPO after MN - Golytely prep - PPI - If above negative,may need double balloon enteroscopy - Supportive care - Further recommendations to follow based on results of above - Pt seen and examined by Dr. Alicia and myself and this note is written on his behalf (Noemy Chavis) Physician Comments Seen and examined with JS, unable to prep for procedures today, will try again tomorrow if takes prep. Monitor labs (Akilah Alicia MD) Noemy Chavis Jul 13, 2017 14:06 Akilah Alicia MD Jul 13, 2017 14:57
[2017-07-13 16:00] VITALS: BP 120/60; PULSE 68; RESP 18; TEMP 95.8; O2SAT 92
[2017-07-13 20:42] VITALS: BP_SYST 111; BP_SYST 117; BP_DIAS 61; BP_DIAS 69; PULSE 75; PULSE 83; RESP 16; TEMP 96.5; TEMP 97.9; O2SAT 100; O2SAT 96
[2017-07-13] MEDS: CHOLECALCIFEROL (VIT D3) 5000 UNIT CAP PO SCH (20:47)
[2017-07-13] MEDS: AMITRIPTYLINE HCL 50 MG TAB PO SCH (20:47)
[2017-07-13] MEDS: FINASTERIDE 5 MG TAB PO SCH (20:47)
[2017-07-13] MEDS: traZODone HCL 50 MG TAB PO SCH (20:47)
[2017-07-13] MEDS: INSULIN DETEMIR 100 UNITS/ML VIAL SQ SCH (20:49)
[2017-07-14 00:47] VITALS: BP 92/58; PULSE 87; RESP 16; TEMP 96.9; O2SAT 100
[2017-07-14 04:50] VITALS: BP 107/62; PULSE 78; RESP 16; TEMP 96.4; O2SAT 97
[2017-07-14 07:30] VITALS: BP 105/54; PULSE 70; RESP 18; TEMP 96.8; O2SAT 97
[2017-07-14] MEDS: INSULIN ASPART SUPPLEMENTAL SCALE SQ SCH ×4 (08:00→20:41)
--- NOTE | 2017-07-14 08:25 | PD.ONC.PN ---
Subjective Subjective Remarks No new c/o Resting Objective Data Date Time Temp Pulse Resp B/P (MAP) Pulse Ox O2 Delivery O2 Flow Rate FiO2 07/14/17 04:50 96.4 78 16 107/62 (77) 97 07/14/17 00:47 96.9 87 16 92/58 (69) 100 07/13/17 20:42 96.5 75 16 111/61 (78) 100 07/13/17 16:00 95.8 68 18 120/60 (80) 92 07/13/17 12:00 95.5 70 18 113/63 (80) 92 07/14/17 07/14/17 07/14/17 07:00 15:00 23:00 Intake Total 0 ml Output Total 400 ml Balance -400 ml Result Diagram: 07/13/17 0538 07/12/17 1000 Administered Medications Medications (Trade) Dose Ordered Sig/Faviola Route PRN Reason Start Time Stop Time Status Last Admin Dose Admin Sodium Chloride (NS Flush) 2 ml UNSCH PRN IV FLUSH FLUSH AFTER USING IV ACCESS 07/10/17 19:45 07/12/17 05:43 Sodium Chloride (NS Flush) 2 ml BID IV FLUSH 07/10/17 21:00 07/13/17 20:48 Acetaminophen/ Hydrocodone Bitart ([place] 5-325 Mg) 1 tab Q4H PRN PO PAIN SCALE 3 TO 5 07/10/17 19:45 07/13/17 06:06 Morphine Sulfate (Morphine Inj) 2 mg Q3H PRN IV PUSH Pain 6-10 07/10/17 19:45 07/13/17 02:53 Senna/Docusate Sodium (Helene-Colace) 1 tab BID PO 07/10/17 21:00 07/13/17 20:47 Bisacodyl (Dulcolax Supp) 10 mg DAILY PRN RECTAL SEVERE CONSITIPATION 07/10/17 19:45 07/13/17 02:29 Amitriptyline HCl (Elavil) 50 mg HS PO 07/10/17 21:00 07/13/17 20:47 Atorvastatin Calcium (Lipitor) 40 mg DAILY PO 07/11/17 09:00 07/12/17 08:47 Cholecalciferol (Vitamin D3) 5,000 units HS PO 07/10/17 21:00 07/13/17 20:47 Cyanocobalamin (Vitamin B12) 100 mcg DAILY PO 07/11/17 09:00 07/12/17 08:47 Digoxin (Lanoxin) 0.125 mg DAILY PO 07/11/17 09:00 07/13/17 08:21 Finasteride (Proscar) 5 mg HS PO 07/10/17 21:00 07/13/17 20:47 Gabapentin (Neurontin) 300 mg TID PO 07/11/17 09:00 07/13/17 18:46 Insulin Detemir (Levemir Inj) 15 units HS SQ 07/10/17 21:00 07/13/17 20:49 Lisinopril (Prinivil) 20 mg DAILY PO 07/11/17 09:00 07/13/17 08:21 Lorazepam (Ativan) 2 mg Q6H PRN PO ANXIETY 07/10/17 20:15 07/13/17 18:46 Nebivolol (Bystolic) 10 mg BID PO 07/10/17 21:00 07/13/17 20:48 Torsemide (Demadex) 40 mg BID PO 07/10/17 21:00 07/13/17 20:47 Trazodone HCl (Desyrel) 50 mg HS PO 07/10/17 21:00 07/12/17 21:46 Pantoprazole Sodium (Protonix) 40 mg BID PO 07/10/17 21:00 07/13/17 20:47 Ferrous Sulfate (Ferrous Sulfate) 325 mg BID PO 07/11/17 09:00 07/13/17 20:46 Ascorbic Acid (Vitamin C) 250 mg BID PO 07/11/17 09:00 07/13/17 20:46 Miscellaneous (Pill Splitter) 1 ea UNSCH PRN OTHER SEE LABEL COMMENTS 07/11/17 09:00 07/12/17 08:48 Insulin Aspart (NovoLOG SUPPLEMENTAL SCALE) 1 ACHS SLIDING SCALE SQ 07/11/17 17:00 07/13/17 20:48 Objective Remarks GENERAL: Well-nourished, well-developed patient. SKIN: Warm and dry. HEAD: Normocephalic. EYES: No scleral icterus. No injection or drainage. NECK: Supple, trachea midline. No JVD or lymphadenopathy. LYMPHATIC: No adenopathy. CARDIOVASCULAR: Regular rate and rhythm without murmurs. RESPIRATORY: Breath sounds equal bilaterally. No accessory muscle use. GASTROINTESTINAL: Abdomen soft, non-tender, nondistended. EXTREMITIES: No cyanosis, or edema. MUSCULOSKELETAL: Adequate muscle tone. NEUROLOGICAL: No obvious focal deficit. Awake, alert, and oriented x3. PSYCHIATRIC: Appropriate mood and affect; insight and judgment normal. Assessment/Plan Problem List: (1) Iron deficiency anemia ICD Codes: D50.9 - Iron deficiency anemia, unspecified Plan: 07/14/17 H/H is improving await scope. Monitor cbc 07/13/17: Monitor CBC. GI team planning for scope tomorrow. He has been approved to go to rehabilitation at [facility]. We will see him once discharged in outpatient clinic for follow-up. -- MARYAM due to GI bleeding -- Hx AVM recently cauterized; has had multiple scopes outpatient as well as pill endoscopy -- Well known to our outpatient clinic for frequent iron, PRBC transfusions. -- GI consulted for further recommendations Assessment 81-year-old male with history of iron deficiency anemia admitted for fall Sorathia,Anton Trivedi MD Jul 14, 2017 08:25
[2017-07-14] MEDS: DOCUSATE SODIUM 50 MG/SENNA 8.6 MG TAB PO SCH ×2 (08:33→20:44)
[2017-07-14] MEDS: NEBIVOLOL 10 MG TAB PO SCH ×2 (08:33→20:43)
[2017-07-14] MEDS: ATORVASTATIN 40 MG TAB PO SCH (08:33)
[2017-07-14] MEDS: ASCORBIC ACID 500 MG TAB PO SCH ×2 (08:33→20:42)
[2017-07-14] MEDS: SODIUM CHLORIDE 0.9% FLUSH 10 ML FLUSH IV FLUSH SCH ×2 (08:33→20:41)
[2017-07-14] MEDS: GABAPENTIN 300 MG CAP PO SCH ×3 (08:33→18:00)
[2017-07-14] MEDS: DIGOXIN 0.125 MG TAB PO SCH (08:33)
[2017-07-14] MEDS: TORSEMIDE 20 MG TAB PO SCH ×2 (08:33→20:44)
[2017-07-14] MEDS: ACETAMINOPHEN/HYDROcodone 325 MG/5 MG TAB PO PRN (08:34)
[2017-07-14] MEDS: PANTOPRAZOLE SOD 40 MG DELAYED RELEASE TAB PO SCH ×2 (08:34→20:44)
[2017-07-14] MEDS: FERROUS SULFATE 325 MG (65 MG ELEMENTAL IRON) TAB PO SCH ×2 (08:34→20:44)
[2017-07-14] MEDS: LORazepam 2 MG TAB PO PRN (08:37)
[2017-07-14] MEDS: LISINOPRIL 20 MG TAB PO SCH (08:39)
[2017-07-14] MEDS: CYANOCOBALAMIN 100 MCG TAB PO SCH (08:45)
--- NOTE | 2017-07-14 09:44 | HHI.PR ---
Subjective Remarks Patient is frustrated because of he has to repeat prep for colonoscopy. No new issues. Pain is controlled. Objective Vitals Vital Signs Date Time Temp Pulse Resp B/P (MAP) Pulse Ox O2 Delivery O2 Flow Rate FiO2 07/14/17 04:50 96.4 78 16 107/62 (77) 97 07/14/17 00:47 96.9 87 16 92/58 (69) 100 07/13/17 20:42 96.5 75 16 111/61 (78) 100 07/13/17 16:00 95.8 68 18 120/60 (80) 92 07/13/17 12:00 95.5 70 18 113/63 (80) 92 I/O 07/13/17 07/13/17 07/13/17 07/14/17 07/14/17 07/14/17 07:00 15:00 23:00 07:00 15:00 23:00 Intake Total 480 ml 0 ml 0 ml Output Total 1200 ml 209 ml 400 ml Balance -1200 ml 271 ml 0 ml -400 ml Intake Oral 480 ml 0 ml 0 ml Output Urine Total 1200 ml 209 ml 400 ml # Voids 2 1 # Bowel Movements 1 0 0 Result Diagram: 07/13/17 0538 07/12/17 1000 Objective Remarks GENERAL: Elderly male in no apparent distress. CARDIOVASCULAR: Normal rate and regular rhythm without murmurs, gallops, or rubs. RESPIRATORY: Good respiratory efforts. Breath sounds equal and clear to auscultation bilaterally. GASTROINTESTINAL: Abdomen soft, non-tender, non-distended. Normal active bowel sounds MUSCULOSKELETAL: Left knee with a significant effusion, tender to palpation. Range of motion somewhat limited secondary to pain. Right lower extremity is wrapped with a clean dressing. NEURO: Alert & Oriented x4 to person, place, time, situation. Moves all ext x4. Generalized weakness PSYCH: Appropriate mood and affect. A/P Problem List: (1) Fall ICD Code: W19.XXXA - Unspecified fall, initial encounter (2) Gait instability ICD Code: R26.81 - Unsteadiness on feet (3) Effusion, left knee ICD Code: M25.462 - Effusion, left knee Status: Acute (4) Hematoma of right lower extremity ICD Code: S80.11XA - Contusion of right lower leg, initial encounter Status: Acute (5) A-fib ICD Code: I48.91 - Unspecified atrial fibrillation (6) CHF (congestive heart failure) ICD Code: I50.9 - Heart failure, unspecified (7) DM (diabetes mellitus) ICD Code: E11.9 - Type 2 diabetes mellitus without complications Assessment and Plan In summary this is an 81-year-old male admitted to the hospital after a mechanical fall. He tripped and fell injuring his left knee and right lower extremity. He did not sustain any fractures. She was found to be severely anemic on presentation. His Hemoccult is positive. History of AVM. He has been transfused and there is plan for colonoscopy. Prep for colonoscopy is ongoing. - Fall: s/p mechanical fall at home after tripping on carpet, no LOC or head trauma reported. - Left Knee Effusion: secondary to fall, left knee tenderness to palpation, decreased ROM. Left Knee X-ray w/ small knee joint effusion and prominent soft tissue swelling, images reviewed by me. Analgesics as needed. Patient is deconditioned. Will need SNF to continue rehabilitation efforts. - RLE Hematoma: secondary to fall/injury, Tib-Fib X-ray w/ soft tissue swelling/hematoma, no fracture, images reviewed by me. On Coumadin for A-fib, INR therapeutic at 2.0. Will monitor. - Acute on chronic anemia : Hemoglobin was 7.2 dropped to 6.9 Which may be contributing to the patient frequent fall, appreciate hematology consult who indicated the patient has iron deficiency anemia from chronic GI bleeding. 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 He has been given iron infusion. Patient received PRBC transfusion and hemoglobin improved. GI following - Intermittent GI bleeding and history of AVM. GI is following. Plan for colonoscopy per GI - Gait Instability: secondary to above. Unable to ambulate safely without assistance at this time. Continue PT, will need SNF. Patient is now agreeable. - A-fib: Chronic. On Coumadin. INR therapeutic on presentation, INR trending down to 1.3. Coumadin was held. Given no signs of active bleeding, Resume home dose Coumadin. Follow INR. - CHF: Chronic. Diastolic. Echo 06/09/17 w/ EF 55-60%. However he does have reduced right ventricular systolic function with dilated right ventricle and atrium and increased pulmonary hypertension 60 mmHg, Resume home medications. Monitor I/O. - DM: Sliding scale w/ Accu-Cheks. Resume home Insulin. - DVT Prophylaxis: On Coumadin as above. Discharge Planning Pending colonoscopy per GI. Plan to DC to SNF. Claude Rivas MD Jul 14, 2017 09:44
[2017-07-14] MEDS ORDERED: POLYETHYLENE GLYCOL 17 GM PKG PO ONE (10:45)
[2017-07-14] MEDS ORDERED: SODIUM CHLOR 0.9% 1000 ML INJ 1,000 ML IV SCH (11:00)
[2017-07-14] MEDS ORDERED: BISACODYL EC 5 MG TABEC PO ONE (11:00)
[2017-07-14 12:00] VITALS: BP 115/65; PULSE 71; RESP 18; TEMP 97.2; O2SAT 97
[2017-07-14 16:00] VITALS: BP 98/52; PULSE 69; RESP 17; TEMP 97.7; O2SAT 97
[2017-07-14 20:00] VITALS: BP 108/61; PULSE 70; RESP 16; TEMP 97.2; O2SAT 93
[2017-07-14] MEDS: INSULIN DETEMIR 100 UNITS/ML VIAL SQ SCH (20:42)
[2017-07-14] MEDS: AMITRIPTYLINE HCL 50 MG TAB PO SCH (20:43)
[2017-07-14] MEDS: FINASTERIDE 5 MG TAB PO SCH (20:43)
[2017-07-14] MEDS: CHOLECALCIFEROL (VIT D3) 5000 UNIT CAP PO SCH (20:44)
[2017-07-14] MEDS: traZODone HCL 50 MG TAB PO SCH (20:44)
[2017-07-15] VITALS (9 sets, daily range): BP systolic 100–131; BP diastolic 49–70; PULSE 69–84; RESP 16–20; TEMP 96.3–98.6; O2SAT 95–99
[2017-07-15] MEDS: ACETAMINOPHEN/HYDROcodone 325 MG/5 MG TAB PO PRN ×4 (01:20→21:36)
[2017-07-15] MEDS: LORazepam 2 MG TAB PO PRN ×2 (01:21→13:23)
[2017-07-15 06:09] LABS: HEMATOCRIT 22.5 % (39.0-51.0); MEAN CELL VOLUME 81.9 FL (80.0-100.0); MEAN CORPUSCULAR HEMOGLOBIN 25.6 PG (27.0-34.0); MEAN CORPUSCULAR HGB CONC 31.3 % (32.0-36.0); PLATELET COUNT 198 TH/MM3 (150-450); RED BLOOD COUNT 2.75 MIL/MM3 (4.50-5.90); RED CELL DISTRIBUTION WIDTH 20.7 % (11.6-17.2); REVIEW FLAG FINAL; WHITE BLOOD COUNT 4.1 TH/MM3 (4.0-11.0)
[2017-07-15 06:25] LABS: INTERNATIONAL NORMALIZED RATIO 1.2 RATIO; PROTHROMBIN TIME - PATIENT 13.6 SEC (9.8-11.6)
[2017-07-15 06:39] LABS: BICARBONATE 35.3 MEQ/L (21.0-32.0); POTASSIUM 3.6 MEQ/L (3.5-5.1)
[2017-07-15] MEDS: INSULIN ASPART SUPPLEMENTAL SCALE SQ SCH ×4 (08:00→21:37)
[2017-07-15] MEDS: SODIUM CHLORIDE 0.9% FLUSH 10 ML FLUSH IV FLUSH SCH ×2 (08:47→21:34)
[2017-07-15] MEDS: NEBIVOLOL 10 MG TAB PO SCH ×2 (08:47→21:36)
[2017-07-15] MEDS: WARFARIN SOD 4 MG TAB PO SCH (08:47)
[2017-07-15] MEDS: LISINOPRIL 20 MG TAB PO SCH (08:48)
[2017-07-15] MEDS: DIGOXIN 0.125 MG TAB PO SCH (08:48)
[2017-07-15] MEDS: GABAPENTIN 300 MG CAP PO SCH ×3 (08:48→17:08)
[2017-07-15] MEDS: FERROUS SULFATE 325 MG (65 MG ELEMENTAL IRON) TAB PO SCH ×2 (08:48→21:37)
[2017-07-15] MEDS: ATORVASTATIN 40 MG TAB PO SCH (08:48)
[2017-07-15] MEDS: DOCUSATE SODIUM 50 MG/SENNA 8.6 MG TAB PO SCH ×2 (08:48→21:36)
[2017-07-15] MEDS: TORSEMIDE 20 MG TAB PO SCH ×2 (08:48→21:36)
[2017-07-15] MEDS: CYANOCOBALAMIN 100 MCG TAB PO SCH (08:49)
[2017-07-15] MEDS: PANTOPRAZOLE SOD 40 MG DELAYED RELEASE TAB PO SCH ×2 (08:49→21:36)
[2017-07-15] MEDS: ASCORBIC ACID 500 MG TAB PO SCH ×2 (08:49→21:36)
[2017-07-15] MEDS ORDERED: FUROSEMIDE 20 MG/2 ML VIAL IV PUSH ONE (09:00)
[2017-07-15] MEDS ORDERED: ACETAMINOPHEN 325 MG TAB PO PRN (09:00)
[2017-07-15] MEDS ORDERED: SODIUM CHLOR 0.9% 250 ML INJ 250 ML IV ONE (09:00)
--- NOTE | 2017-07-15 09:29 | PD.ONC.PN ---
Subjective Subjective Remarks Afebrile Just had something for pain in his legs Asking what time the scope will be Denies seeing any obvious bleeding Objective Data Date Time Temp Pulse Resp B/P (MAP) Pulse Ox O2 Delivery O2 Flow Rate FiO2 07/15/17 08:00 98.6 70 17 111/60 (77) 97 07/15/17 04:00 98.1 71 16 100/55 (70) 97 07/15/17 02:26 17 07/15/17 00:00 97.1 79 16 100/51 (67) 95 07/14/17 20:00 97.2 70 16 108/61 (77) 93 07/14/17 16:00 97.7 69 17 98/52 (67) 97 07/14/17 12:00 97.2 71 18 115/65 (82) 97 07/15/17 07/15/17 07/15/17 07:00 15:00 23:00 Intake Total 450 ml Output Total 400 ml Balance 50 ml Result Diagram: 07/15/17 0544 07/15/17 0544 Laboratory Results Laboratory Tests Test 07/15/17 05:44 White Blood Count 4.1 TH/MM3 Red Blood Count 2.75 MIL/MM3 Hemoglobin 7.0 GM/DL Hematocrit 22.5 % Mean Corpuscular Volume 81.9 FL Mean Corpuscular Hemoglobin 25.6 PG Mean Corpuscular Hemoglobin Concent 31.3 % Red Cell Distribution Width 20.7 % Platelet Count 198 TH/MM3 Mean Platelet Volume 8.5 FL Prothrombin Time 13.6 SEC Prothromb Time International Ratio 1.2 RATIO Blood Urea Nitrogen 39 MG/DL Creatinine 1.43 MG/DL Random Glucose 142 MG/DL Calcium Level 8.0 MG/DL Sodium Level 139 MEQ/L Potassium Level 3.6 MEQ/L Chloride Level 99 MEQ/L Carbon Dioxide Level 35.3 MEQ/L Anion Gap 5 MEQ/L Estimat Glomerular Filtration Rate 48 ML/MIN Administered Medications Medications (Trade) Dose Ordered Sig/Faviola Route PRN Reason Start Time Stop Time Status Last Admin Dose Admin Sodium Chloride (NS Flush) 2 ml UNSCH PRN IV FLUSH FLUSH AFTER USING IV ACCESS 07/10/17 19:45 07/12/17 05:43 Sodium Chloride (NS Flush) 2 ml BID IV FLUSH 07/10/17 21:00 07/14/17 08:33 Acetaminophen/ Hydrocodone Bitart ([place] 5-325 Mg) 1 tab Q4H PRN PO PAIN SCALE 3 TO 5 07/10/17 19:45 07/15/17 01:20 Morphine Sulfate (Morphine Inj) 2 mg Q3H PRN IV PUSH Pain 6-10 07/10/17 19:45 07/13/17 02:53 Senna/Docusate Sodium (Helene-Colace) 1 tab BID PO 07/10/17 21:00 07/14/17 20:44 Bisacodyl (Dulcolax Supp) 10 mg DAILY PRN RECTAL SEVERE CONSITIPATION 07/10/17 19:45 07/13/17 02:29 Amitriptyline HCl (Elavil) 50 mg HS PO 07/10/17 21:00 07/14/17 20:43 Atorvastatin Calcium (Lipitor) 40 mg DAILY PO 07/11/17 09:00 07/14/17 08:33 Cholecalciferol (Vitamin D3) 5,000 units HS PO 07/10/17 21:00 07/14/17 20:44 Cyanocobalamin (Vitamin B12) 100 mcg DAILY PO 07/11/17 09:00 07/14/17 08:45 Digoxin (Lanoxin) 0.125 mg DAILY PO 07/11/17 09:00 07/15/17 08:48 Finasteride (Proscar) 5 mg HS PO 07/10/17 21:00 07/14/17 20:43 Gabapentin (Neurontin) 300 mg TID PO 07/11/17 09:00 07/14/17 13:24 Insulin Detemir (Levemir Inj) 15 units HS SQ 07/10/17 21:00 07/13/17 20:49 Lisinopril (Prinivil) 20 mg DAILY PO 07/11/17 09:00 07/13/17 08:21 Lorazepam (Ativan) 2 mg Q6H PRN PO ANXIETY 07/10/17 20:15 07/15/17 01:21 Nebivolol (Bystolic) 10 mg BID PO 07/10/17 21:00 07/14/17 20:43 Torsemide (Demadex) 40 mg BID PO 07/10/17 21:00 07/14/17 20:44 Trazodone HCl (Desyrel) 50 mg HS PO 07/10/17 21:00 07/14/17 20:44 Pantoprazole Sodium (Protonix) 40 mg BID PO 07/10/17 21:00 07/14/17 20:44 Ferrous Sulfate (Ferrous Sulfate) 325 mg BID PO 07/11/17 09:00 07/14/17 20:44 Ascorbic Acid (Vitamin C) 250 mg BID PO 07/11/17 09:00 07/14/17 20:42 Miscellaneous (Pill Splitter) 1 ea UNSCH PRN OTHER SEE LABEL COMMENTS 07/11/17 09:00 07/12/17 08:48 Insulin Aspart (NovoLOG SUPPLEMENTAL SCALE) 1 ACHS SLIDING SCALE SQ 07/11/17 17:00 07/13/17 20:48 Objective Remarks GENERAL: Elderly male resting in bed with spouse at bedside SKIN: Dressings to right lower extremity serosanguineous drainage noted. HEAD: Normocephalic. EYES: No injection or drainage. NECK: Supple, trachea midline. No JVD or lymphadenopathy. CARDIOVASCULAR: 4/6 murmur noted. RESPIRATORY: Clear anteriorly. On 2 L nasal cannula. GASTROINTESTINAL: Abdomen soft, non-tender, nondistended. EXTREMITIES: Bilateral lower legs edematous, more so on the left. Dressing to right lower extremity. MUSCULOSKELETAL: Generalized weakness NEUROLOGICAL: No obvious focal deficit. Awake, alert, and oriented x3. Assessment/Plan Problem List: (1) Iron deficiency anemia ICD Codes: D50.9 - Iron deficiency anemia, unspecified Plan: 07/15/17: Scope today to look for source of bleeding. Noted that his Hgb has dropped to 7.0; will transfuse 2 units PRBC's. Monitor CBC. -- MARYAM due to GI bleeding -- Hx AVM recently cauterized; has had multiple scopes outpatient as well as pill endoscopy -- Well known to our outpatient clinic for frequent iron, PRBC transfusions. -- GI consulted for further recommendations Assessment 81-year-old male with history of iron deficiency anemia admitted for fall Attending Statement no new c/o Hg drop to 7 PRBC scope today. Ok to d/c to rehab after the procedure Sherly Ferrara Jul 15, 2017 09:29 Michele Garcia MD Jul 15, 2017 10:58
[2017-07-15] MEDS ORDERED: DO NOT ADM ANY ANTICOAGULANT DRUGS PRN (10:24)
--- NOTE | 2017-07-15 10:53 | GIPROC ---
[facility] [address] [facility]. [facility], [address] ENTEROSCOPY PROCEDURE REPORT EXAM DATE: 07/15/2017 PATIENT NAME: Denys Sanon MR#: [id number] BIRTHDATE: 1935 ATTENDING: Akilah Alicia MD ORDER #: [id number] NOVELTY MAKER: Elke Iraheta and [place] STATUS: inpatient INDICATIONS: The patient is a 81 yr old male here for an enteroscopy procedure due to red rectal bleeding and iron deficiency anemia PROCEDURE PERFORMED: Small bowel enteroscopy with ablation therapy MEDICATIONS: None and Per Anesthesia. CONSENT: The patient understands the risks and benefits of the procedure and understands that these risks include, but are not limited to: sedation, allergic reaction, infection, perforation and/or bleeding. Alternative means of evaluation and treatment include, among others: physical exam, x-rays, and/or surgical intervention. The patient elects to proceed with this endoscopic procedure. medical equipment was checked for proper function. Hand hygiene and appropriate measures for infection prevention was taken. After the risks, benefits and alternatives of the procedure were thoroughly explained, Informed consent was verified, confirmed and timeout was successfully executed by the treatment team. The [id number] (Pedi C) endoscope was introduced through the mouth and advanced to the afferent jejunal loop jejunum. The prep was good. The instrument was then slowly withdrawn while examining the mucosa circumferentially. The scope was then completely withdrawn from the patient and the procedure terminated. The pulse, BP, and O2 saturation were monitored and documented by the physician and the nursing staff throughout the entire procedure. The patient was cared for as planned according to standard protocol, then discharged to recovery in stable condition and with appropriate post procedure care. Esophagitis was found in the antrum. 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 ADVERSE EVENTS: There were no complications. IMPRESSIONS: 1. Esophagitis was found in the antrum 2. 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 AVM ablated using APC RECOMMENDATIONS: 1. Anti-reflux regimen 2. Avoid NSAIDS RECALL: Return as needed for Enteroscopy Akilah Alicia MD eSigned: Akilah Alicia MD 07/15/2017 10:53 AM cc: PATIENT NAME: Denys Sanon MR#: [id number]
--- NOTE | 2017-07-15 10:56 | GIPROC ---
[facility] [address] [facility]. [facility], [address] COLONOSCOPY PROCEDURE REPORT EXAM DATE: 07/15/2017 PATIENT NAME: Denys Sanon MR #: [id number] BIRTHDATE: 1935 ENDOSCOPIST: Akilah Alicia MD ORDER #: [id number] PROFESSOR OF ENGLISH: Elke Iraheta and [place] STATUS: inpatient INDICATIONS: The patient is a 81 yr old male here for a colonoscopy due to iron deficiency anemia PROCEDURE PERFORMED: Colonoscopy with polypectomy MEDICATIONS: None and Per Anesthesia. PREP QUALITY: fair PREP TYPE:GoLytely ESTIMATED BLOOD LOSS: None CONSENT: The patient understands the risks and benefits of the procedure and understands that these risks include, but are not limited to: sedation, allergic reaction, infection, perforation and/or bleeding. Alternative means of evaluation and treatment include, among others: physical exam, x-rays, and/or surgical intervention. The patient elects to proceed with this endoscopic procedure. medical equipment was checked for proper function. Hand hygiene and appropriate measures for infection prevention was taken. After the risks, benefits and alternatives of the procedure were thoroughly explained, Informed consent was verified, confirmed and timeout was successfully executed by the treatment team. A digital exam revealed external hemorrhoids The Pentax [id number] endoscope was introduced through the anus and advanced to the cecum, which was identified by both the appendix and ileocecal valve. The instrument was then slowly withdrawn as the colon was fully examined. COLON FINDINGS: A polypoid shaped flat polyp measuring 10 mm in size was found at the cecum. A polypectomy was performed using hot forceps. The resection was incomplete and the polyp tissue was completely retrieved. Illeo colonic anastomosis. Retroflexed views revealed internal hemorrhoids and Retroflexed views revealed medium internal hemorrhoids The scope was then completely withdrawn from the patient and the procedure terminated. PROCEDURE WITHDRAWAL TIME:7minutes ADVERSE EVENTS: There were no complications. IMPRESSIONS: 1. A flat polyp was found at the cecum; polypectomy was performed using hot forceps 2. Illeo colonic anastomosis 3. Retroflexed views revealed internal hemorrhoids 4. Retroflexed views revealed medium internal hemorrhoids 5. Revealed external hemorrhoids RECOMMENDATIONS: 1. Await biopsy results. Biopsy results will not be ready for 7-10 days. If you don't hear from us in two weeks, call our office for results. 2. Continue surveillance 3. Yearly hemoccult 4. High fiber diet 5. No seeds, nuts and popcorn in diet RECALL: Return 1 year Colonoscopy, pending biopsy results Akilah Alicia MD eSigned: Akilah Alicia MD 07/15/2017 10:55 AM cc:
[2017-07-15] MEDS ORDERED: *morphine SULFATE 8 MG/ML PERIprocedure ONLY ONE (11:22)
[2017-07-15] MEDS ORDERED: PROPOFOL 200 MG/20 ML AMP IV ONE (12:00)
[2017-07-15] MEDS ORDERED: LIDOCAINE HCL 1% PF 5 ML SYRINGE OTHER ONE (12:00)
--- NOTE | 2017-07-15 15:10 | HHI.PR ---
Subjective Remarks HAD COLONOSCOPY AND EGD TODAY AND CAUTERY OF AVM IN STOMACH WILL TRANSFUSE 2 UNITS PRBC DW RN AND PT AM LABS Objective Vitals Vital Signs Date Time Temp Pulse Resp B/P (MAP) Pulse Ox O2 Delivery O2 Flow Rate FiO2 07/15/17 12:00 96.4 69 17 131/70 (90) 95 07/15/17 11:30 97.6 69 20 133/59 (83) 98 Nasal Cannula 2 07/15/17 11:15 69 20 115/58 (77) 99 Nasal Cannula 2 07/15/17 11:01 97.6 86 20 108/58 (75) 97 Nasal Cannula 2 07/15/17 08:00 98.6 70 17 111/60 (77) 97 07/15/17 04:00 98.1 71 16 100/55 (70) 97 07/15/17 02:26 17 07/15/17 00:00 97.1 79 16 100/51 (67) 95 07/14/17 20:00 97.2 70 16 108/61 (77) 93 07/14/17 16:00 97.7 69 17 98/52 (67) 97 I/O 07/14/17 07/14/17 07/14/17 07/15/17 07/15/17 07/15/17 07:00 15:00 23:00 07:00 15:00 23:00 Intake Total 0 ml 1510 ml 450 ml 400 ml Output Total 400 ml 400 ml Balance -400 ml 1510 ml 50 ml 400 ml Intake Oral 0 ml 960 ml 0 ml IV Total 550 ml 450 ml Other 400 ml Output Urine Total 400 ml 400 ml # Voids 2 1 # Bowel Movements 0 0 1 Result Diagram: 07/15/1744 07/15/1744 Other Results Laboratory Tests Test 07/13/17 05:38 07/15/17 05:44 White Blood Count 7.0 TH/MM3 4.1 TH/MM3 Red Blood Count 3.55 MIL/MM3 2.75 MIL/MM3 Hemoglobin 9.3 GM/DL 7.0 GM/DL Hematocrit 29.0 % 22.5 % Mean Corpuscular Volume 81.7 FL 81.9 FL Mean Corpuscular Hemoglobin 26.1 PG 25.6 PG Mean Corpuscular Hemoglobin Concent 31.9 % 31.3 % Red Cell Distribution Width 19.4 % 20.7 % Platelet Count 236 TH/MM3 198 TH/MM3 Mean Platelet Volume 8.9 FL 8.5 FL Neutrophils (%) (Auto) 78.9 % Lymphocytes (%) (Auto) 6.3 % Monocytes (%) (Auto) 10.7 % Eosinophils (%) (Auto) 2.2 % Basophils (%) (Auto) 1.9 % Neutrophils # (Auto) 5.5 TH/MM3 Lymphocytes # (Auto) 0.4 TH/MM3 Monocytes # (Auto) 0.7 TH/MM3 Eosinophils # (Auto) 0.2 TH/MM3 Basophils # (Auto) 0.1 TH/MM3 CBC Comment DIFF FINAL Differential Comment Prothrombin Time 14.3 SEC 13.6 SEC Prothromb Time International Ratio 1.3 RATIO 1.2 RATIO Blood Urea Nitrogen 39 MG/DL Creatinine 1.43 MG/DL Random Glucose 142 MG/DL Calcium Level 8.0 MG/DL Sodium Level 139 MEQ/L Potassium Level 3.6 MEQ/L Chloride Level 99 MEQ/L Carbon Dioxide Level 35.3 MEQ/L Anion Gap 5 MEQ/L Estimat Glomerular Filtration Rate 48 ML/MIN Imaging Last Impressions Tibia/Fibula X-Ray 07/10/17 0000 Signed Impressions: Service Date/Time: Monday, July 10, 2017 16:17 - CONCLUSION: Soft tissue swelling/hematoma suspected subcutaneous tissues without obvious fracture. Harley eMdellin MD Pelvis X-Ray 07/10/17 0000 Signed Impressions: Service Date/Time: Monday, July 10, 2017 16:27 - CONCLUSION: No definite fractures. Harley Medellin MD Knee X-Ray 07/10/17 0000 Signed Impressions: Service Date/Time: Monday, July 10, 2017 16:22 - CONCLUSION: Small knee joint effusion and prominent soft tissue swelling is seen anterior to the knee. Harley Medellin MD Objective Remarks GENERAL: AWAKE ALERT AND ORIENTED X3- TALKATIVE AND COOPERATIVE SKIN: Warm and dry. RIGHT LE DRESSED lots of ecchymosis on upper extremity and lower extremity bilaterally due to the chronic Coumadin HEAD: Atraumatic. Normocephalic. EYES: Pupils equal and round. No scleral icterus. No injection or drainage. EOMI ENT: No nasal bleeding or discharge. Mucous membranes pink and moist. TONGUE MIDLINE NECK: Trachea midline. No JVD. SUPPLE CARDIOVASCULAR: Regular rate and rhythm. S1 and S2 no S3 or S4 no heave or thrill or rub or gallop RESPIRATORY: No accessory muscle use. Clear to auscultation. Breath sounds equal bilaterally. GASTROINTESTINAL: Abdomen soft, non-tender, nondistended. Hepatic and splenic margins not palpable. MUSCULOSKELETAL: Extremities without clubbing, cyanosis, or edema. No obvious deformities. Right lower extremity is dressed NEUROLOGICAL: Awake and alert. No obvious cranial nerve deficits. Motor grossly within normal limits. 4 out of 5 muscle strength in the arms and legs. Normal speech. PSYCHIATRIC: Appropriate mood and affect; insight and judgment normal. Procedures COLONOSCOPY PROCEDURE REPORT EXAM DATE: 07/15/2017 PATIENT NAME: Denys Sanon MR #: [id number] BIRTHDATE: 1935 ENDOSCOPIST: Akilah Alicia MD ORDER #: [id number] RESEARCH ASSOCIATE QUALITY CONTROL QC: Elke Iraheta and [place] STATUS: inpatient INDICATIONS: The patient is a 81 yr old male here for a colonoscopy due to iron deficiency anemia PROCEDURE PERFORMED: Colonoscopy with polypectomy MEDICATIONS: None and Per Anesthesia. PREP QUALITY: fair PREP TYPE:GoLytely ESTIMATED BLOOD LOSS: None CONSENT: The patient understands the risks and benefits of the procedure and understands that these risks include, but are not limited to: sedation, allergic reaction, infection, perforation and/or bleeding. Alternative means of evaluation and treatment include, among others: physical exam, x-rays, and/or surgical intervention. The patient elects to proceed with this endoscopic procedure. medical equipment was checked for proper function. Hand hygiene and appropriate measures for infection prevention was taken. After the risks, benefits and alternatives of the procedure were thoroughly explained, Informed consent was verified, confirmed and timeout was successfully executed by the treatment team. A digital exam revealed external hemorrhoids The Pentax EC-[id number] endoscope was introduced through the anus and advanced to the cecum, which was identified by both the appendix and ileocecal valve. The instrument was then slowly withdrawn as the colon was fully examined. COLON FINDINGS: A polypoid shaped flat polyp measuring 10 mm in size was found at the cecum. A polypectomy was performed using hot forceps. The resection was incomplete and the polyp tissue was completely retrieved. Illeo colonic anastomosis. Retroflexed views revealed internal hemorrhoids and Retroflexed views revealed medium internal hemorrhoids The scope was then completely withdrawn from the patient and the procedure terminated. PROCEDURE WITHDRAWAL TIME:7minutes ADVERSE EVENTS: There were no complications. IMPRESSIONS: 1. A flat polyp was found at the cecum; polypectomy was performed using hot forceps 2. Illeo colonic anastomosis 3. Retroflexed views revealed internal hemorrhoids 4. Retroflexed views revealed medium internal hemorrhoids 5. Revealed external hemorrhoids RECOMMENDATIONS: 1. Await biopsy results. Biopsy results will not be ready for 7-10 days. If you don't hear from us in two weeks, call our office for results. 2. Continue surveillance 3. Yearly hemoccult 4. High fiber diet 5. No seeds, nuts and popcorn in diet RECALL: Return 1 year Colonoscopy, pending biopsy results ENTEROSCOPY PROCEDURE REPORT EXAM DATE: 07/15/2017 PATIENT NAME: Denys Sanon MR#: [id number] BIRTHDATE: 1935 ATTENDING: Akilah Alicia MD ORDER #: [id number] RESEARCH ASSOCIATE QUALITY CONTROL QC: [place]ke Iraheta and [place] STATUS: inpatient INDICATIONS: The patient is a 81 yr old male here for an enteroscopy procedure due to red rectal bleeding and iron deficiency anemia PROCEDURE PERFORMED: Small bowel enteroscopy with ablation therapy MEDICATIONS: None and Per Anesthesia. CONSENT: The patient understands the risks and benefits of the procedure and understands that these risks include, but are not limited to: sedation, allergic reaction, infection, perforation and/or bleeding. Alternative means of evaluation and treatment include, among others: physical exam, x-rays, and/or surgical intervention. The patient elects to proceed with this endoscopic procedure. medical equipment was checked for proper function. Hand hygiene and appropriate measures for infection prevention was taken. After the risks, benefits and alternatives of the procedure were thoroughly explained, Informed consent was verified, confirmed and timeout was successfully executed by the treatment team. The [id number] (Pedi C) endoscope was introduced through the mouth and advanced to the afferent jejunal loop jejunum. The prep was good. The instrument was then slowly withdrawn while examining the mucosa circumferentially. The scope was then completely withdrawn from the patient and the procedure terminated. The pulse, BP, and O2 saturation were monitored and documented by the physician and the nursing staff throughout the entire procedure. The patient was cared for as planned according to standard protocol, then discharged to recovery in stable condition and with appropriate post procedure care. Esophagitis was found in the antrum. 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 ADVERSE EVENTS: There were no complications. IMPRESSIONS: 1. Esophagitis was found in the antrum 2. 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 AVM ablated using APC RECOMMENDATIONS: 1. Anti-reflux regimen 2. Avoid NSAIDS RECALL: Return as needed for Enteroscopy Medications and IVs Current Medications Tetanus/ Diphtheria Toxoids (Tetanus/ Diphtheria Tox Adult) 0.5 ml ONCE ONCE IM ; Start 07/10/17 at 15:45; Stop 07/10/17 at 15:46; Status DC Acetaminophen/ Codeine Phosphate (Tylenol-Codeine #3) 2 tab ONCE ONCE PO ; Start 07/10/17 at 17:30; Stop 07/10/17 at 17:30; Status DC Morphine Sulfate (Morphine Inj) 4 mg ONCE ONCE IV PUSH Last administered on 18:19; Start 07/10/17 at 17:30; Stop 07/10/17 at 17:31; Status DC Ondansetron HCl (Zofran Inj) 4 mg ONCE ONCE IV PUSH Last administered on 07/10 18:20; Start 07/10/17 at 17:30; Stop 07/10/17 at 17:31; Status DC Sodium Chloride (NS Flush) 2 ml UNSCH PRN IV FLUSH FLUSH AFTER USING IV ACCESS Last administered on 07/12/17 05:43; Start 07/10/17 at 19:45 Sodium Chloride (NS Flush) 2 ml BID IV FLUSH Last administered on 07/14/17 08 :33; Start 07/10/17 at 21:00 Ondansetron HCl (Zofran Inj) 4 mg Q6H PRN IVP NAUSEA OR VOMITING; Start at 19:45 Acetaminophen (Tylenol) 650 mg Q6H PRN PO FEVER/PAIN SCALE 1 TO 2; Start 07/10 at 19:45 Acetaminophen/ Hydrocodone Bitart ([place] 5-325 Mg) 1 tab Q4H PRN PO PAIN SCALE 3 TO 5 Last administered on 07/15/17 13:15; Start 07/10/17 at 19:45 Morphine Sulfate (Morphine Inj) 2 mg Q3H PRN IV PUSH Pain 6-10 Last administered on 07/13/17 02:53; Start 07/10/17 at 19:45 Senna/Docusate Sodium (Helene-Colace) 1 tab BID PO Last administered on 20:44; Start 07/10/17 at 21:00 Magnesium Hydroxide (Milk Of Magnesia Liq) 30 ml Q12H PRN PO Mild constipation ; Start 07/10/17 at 19:45 Sennosides (Senokot) 17.2 mg Q12H PRN PO Moderate constipation; Start at 19:45 Bisacodyl (Dulcolax Supp) 10 mg DAILY PRN RECTAL SEVERE CONSITIPATION Last administered on 07/13/17 02:29; Start 07/10/17 at 19:45 Lactulose (Lactulose Liq) 30 ml DAILY PRN PO SEVERE CONSITIPATION; Start 07/10 at 19:45 Amitriptyline HCl (Elavil) 50 mg HS PO Last administered on 07/14/17 20:43; Start 07/10/17 at 21:00 Atorvastatin Calcium (Lipitor) 40 mg DAILY PO Last administered on 07/14/17 08:33; Start 07/11/17 at 09:00 Cholecalciferol (Vitamin D3) 5,000 units HS PO Last administered on 07/14/17 20:44; Start 07/10/17 at 21:00 Cyanocobalamin (Vitamin B12) 100 mcg DAILY PO Last administered on 07/14/17 08:45; Start 07/11/17 at 09:00 Digoxin (Lanoxin) 0.125 mg DAILY PO Last administered on 07/15/17 08:48; Start 07/11/17 at 09:00 Finasteride (Proscar) 5 mg HS PO Last administered on 07/14/17 20:43; Start 07/10/17 at 21:00 Gabapentin (Neurontin) 300 mg TID PO Last administered on 07/15/17 13:15; Start 07/11/17 at 09:00 Insulin Detemir (Levemir Inj) 15 units HS SQ Last administered on 07/13/17 20 :49; Start 07/10/17 at 21:00 Albuterol/ Ipratropium (Duoneb Neb) 1 ampule Q4HR NEB PRN NEB SOB/WHEEZING; Start 07/10/17 at 20:15 Lisinopril (Prinivil) 20 mg DAILY PO Last administered on 07/13/17 08:21; Start 07/11/17 at 09:00 Lorazepam (Ativan) 2 mg Q6H PRN PO ANXIETY Last administered on 07/15/17 13: 23; Start 07/10/17 at 20:15 Nebivolol (Bystolic) 10 mg BID PO Last administered on 07/14/17 20:43; Start 07/10/17 at 21:00 Torsemide (Demadex) 40 mg BID PO Last administered on 07/14/17 20:44; Start 07/10/17 at 21:00 Trazodone HCl (Desyrel) 50 mg HS PO Last administered on 07/14/17 20:44; Start 07/10/17 at 21:00 Patient Own Medication PT OWN MED: (Acarb... DAILY@1700 PO ; Start 07/11/17 at 17:00; Status Future Hold Patient Own Medication PT OWN MED: (Acarb... DAILY@0800 PO ; Start 07/11/17 at 08:00; Status Future Hold Patient Own Medication PT OWN MED: (Clobeta... BID PRN TOPICAL RASH/ITCHING; Start 07/10/17 at 20:30; Status Future Hold Pantoprazole Sodium (Protonix) 40 mg BID PO Last administered on 07/14/17 20: 44; Start 07/10/17 at 21:00 Ferrous Sulfate (Ferrous Sulfate) 325 mg BID PO Last administered on 20:44; Start 07/11/17 at 09:00 Ascorbic Acid (Vitamin C) 250 mg BID PO Last administered on 07/14/17 20:42; Start 07/11/17 at 09:00 Miscellaneous (Pill Splitter) 1 ea UNSCH PRN OTHER SEE LABEL COMMENTS Last administered on 07/12/17 08:48; Start 07/11/17 at 09:00 Dextrose (D50w (Vial) Inj) 50 ml UNSCH PRN IV PUSH HYPOGLYCEMIA-SEE COMMENTS; Start 07/11/17 at 12:45; Stop 07/12/17 at 10:11; Status DC Glucagon (Glucagon Inj) 1 mg UNSCH PRN OTHER HYPOGLYCEMIA-SEE COMMENTS; Start 07/11/17 at 12:45; Stop 07/12/17 at 10:11; Status DC Insulin Aspart (NovoLOG SUPPLEMENTAL SCALE) 1 ACHS SLIDING SCALE SQ Last administered on 07/15/17 13:21; Start 07/11/17 at 17:00 Furosemide (Lasix Inj) 10 mg ONCE ONCE IV PUSH Last administered on 03:37; Start 07/11/17 at 15:30; Stop 07/11/17 at 15:31; Status DC Iron Sucrose (Venofer Inj) 200 mg ONCE ONCE IV PUSH ; Start 07/12/17 at 06:00 ; Stop 07/12/17 at 06:01; Status Cancel Iron Sucrose 200 mg/Sodium Chloride 110 ml @ 110 mls/hr ONCE ONCE IV Last administered on 07/12/17 07:23; Start 07/12/17 at 06:00; Stop 07/12/17 at 06 :59; Status DC Dextrose (D50w (Vial) Inj) 50 ml UNSCH PRN IV PUSH HYPOGLYCEMIA-SEE COMMENTS; Start 07/12/17 at 09:30 Glucagon (Glucagon Inj) 1 mg UNSCH PRN OTHER HYPOGLYCEMIA-SEE COMMENTS; Start 07/12/17 at 09:30 Polyethylene Glycol/ Electrolytes (Colyte Liq) 4,000 ml ONCE ONCE PO Last administered on 07/12/17 16:55; Start 07/12/17 at 16:00; Stop 07/12/17 at 16 :01; Status DC Lactated Ringer's 1,000 ml @ 30 mls/hr Q24H PRN IV SEE LABEL COMMENTS; Start 07/12/17 at 20:15; Stop 07/15/17 at 20:14 Sodium Chloride 500 ml @ 30 mls/hr [id number] PRN IV SEE LABEL COMMENTS; Start at 20:15; Stop 07/15/17 at 20:14 Metoprolol Tartrate (Lopressor) 25 mg [employer]IL[employer]IST PRN PO SEE LABEL COMMENTS; Start 07/12/17 at 20:15; Stop 07/15/17 at 20:14 Povidone Iodine (Betadine 5% Antisepsis Kit) 1 applic [employer]IL[employer]IST PRN EACH NARE SEE LABEL COMMENTS; Start 07/12/17 at 20:15; Stop 07/15/17 at 20:14 Chlorhexidine Gluconate (Chlorhexidine 2% Cloth) 3 pack [employer]IST PRN TOPICAL SEE LABEL COMMENTS; Start 07/12/17 at 20:15; Stop 07/15/17 at 20:14 Bisacodyl (Dulcolax Ec) 10 mg ONCE ONCE PO Last administered on 07/13/17 08: 20; Start 07/13/17 at 08:15; Stop 07/13/17 at 08:16; Status DC Polyethylene Glycol/ Electrolytes (Colyte Liq) 1 ml ONCE ONCE PO ; Start 07/13 at 14:00; Stop 07/13/17 at 14:00; Status DC Polyethylene Glycol/ Electrolytes (Colyte Liq) 4,000 ml ONCE ONCE PO Last administered on 07/13/17 15:40; Start 07/13/17 at 14:00; Stop 07/13/17 at 14 :01; Status DC Polyethylene Glycol (Miralax) 238 gm ONCE ONCE PO Last administered on 12:33; Start 07/14/17 at 10:45; Stop 07/14/17 at 10:49; Status DC Bisacodyl (Dulcolax Ec) 20 mg ONCE ONCE PO Last administered on 07/14/17 12: 33; Start 07/14/17 at 11:00; Stop 07/14/17 at 11:01; Status DC Warfarin Sodium (Coumadin) 4 mg DAILY PO ; Start 07/15/17 at 09:00 Sodium Chloride 1,000 ml @ 100 mls/hr Q10H IV Last administered on 07/14/17 11:00; Start 07/14/17 at 11:00; Stop 07/14/17 at 20:59; Status DC Sodium Chloride 250 ml @ 15 mls/hr ONCE ONCE IV ; Start 07/15/17 at 09:00; Stop 07/16/17 at 01:39 Acetaminophen (Tylenol) 650 mg Q4H PRN PO SEE LABEL COMMENTS; Start 07/15/17 at 09:00 Diphenhydramine HCl (Benadryl) 25 mg Q4H PRN PO SEE LABEL COMMENTS; Start at 09:00 Furosemide (Lasix Inj) 20 mg ONCE ONCE IV PUSH ; Start 07/15/17 at 09:00; Stop 07/15/17 at 09:01; Status DC Miscellaneous Information ALL NURSING DEPARTME... UNSCH PRN .XX SEE LABEL COMMENTS; Start 07/15/17 at 10:24; Stop 07/16/17 at 10:23 Morphine Sulfate (*morphine INJ PERIprocedure ONLY) 8 mg STK-MED ONCE .ROUTE Last administered on 07/15/17t 11:22; Start 07/15/17 at 11:22; Stop 07/15/17 at 11:23; Status DC A/P Problem List: (1) Fall ICD Code: W19.XXXA - Unspecified fall, initial encounter (2) Gait instability ICD Code: R26.81 - Unsteadiness on feet (3) Effusion, left knee ICD Code: M25.462 - Effusion, left knee Status: Acute (4) Hematoma of right lower extremity ICD Code: S80.11XA - Contusion of right lower leg, initial encounter Status: Acute (5) A-fib ICD Code: I48.91 - Unspecified atrial fibrillation (6) CHF (congestive heart failure) ICD Code: I50.9 - Heart failure, unspecified (7) DM (diabetes mellitus) ICD Code: E11.9 - Type 2 diabetes mellitus without complications Assessment and Plan In summary this is an 81-year-old male admitted to the hospital after a mechanical fall. He tripped and fell injuring his left knee and right lower extremity. He did not sustain any fractures. He was found to be severely anemic on presentation. His Hemoccult is positive. History of AVM. He has been transfused and there is plan for colonoscopy. Prep for colonoscopy is ongoing. - Fall: s/p mechanical fall at home after tripping on carpet, no LOC or head trauma reported. - Left Knee Effusion: secondary to fall, left knee tenderness to palpation, decreased ROM. Left Knee X-ray w/ small knee joint effusion and prominent soft tissue swelling, images reviewed by me. Analgesics as needed. Patient is deconditioned. Will need SNF to continue rehabilitation efforts. - RLE Hematoma: secondary to fall/injury, Tib-Fib X-ray w/ soft tissue swelling/hematoma, no fracture, images reviewed by me. On Coumadin for A-fib, INR therapeutic at 2.0. Will monitor. - Acute on chronic anemia : Hemoglobin was 7.2 dropped to 6.9 Which may be contributing to the patient frequent fall, appreciate hematology consult who indicated the patient has iron deficiency anemia from chronic GI bleeding. 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 He has been given iron infusion. Patient received PRBC transfusion and hemoglobin improved. GI following - Intermittent GI bleeding and history of AVM. GI is following. Plan for colonoscopy per GI --HAD COLONOSCOPY AND EGD ON 07-15 - Gait Instability: secondary to above. Unable to ambulate safely without assistance at this time. Continue PT, will need SNF. Patient is now agreeable. - A-fib: Chronic. On Coumadin. INR therapeutic on presentation, INR trending down to 1.3. Coumadin was held. Given no signs of active bleeding, Resume home dose Coumadin. Follow INR. - CHF: Chronic. Diastolic. Echo 06/09/17 w/ EF 55-60%. However he does have reduced right ventricular systolic function with dilated right ventricle and atrium and increased pulmonary hypertension 60 mmHg, Resume home medications. Monitor I/O. - DM: Sliding scale w/ Accu-Cheks. Resume home Insulin. - DVT Prophylaxis: On Coumadin as above. Anemia transfuse 2 units packed red blood cells TODAY Discharge Planning PT AND OT Virgil Shea DO Jul 15, 2017 15:10
[2017-07-15] MEDS: diphenhydrAMINE HCL 25 MG CAP PO PRN (17:08)
[2017-07-15] MEDS: CHOLECALCIFEROL (VIT D3) 5000 UNIT CAP PO SCH (21:35)
[2017-07-15] MEDS: FINASTERIDE 5 MG TAB PO SCH (21:36)
[2017-07-15] MEDS: AMITRIPTYLINE HCL 50 MG TAB PO SCH (21:36)
[2017-07-15] MEDS: traZODone HCL 50 MG TAB PO SCH (21:37)
[2017-07-15] MEDS: INSULIN DETEMIR 100 UNITS/ML VIAL SQ SCH (21:38)
[2017-07-16] VITALS (9 sets, daily range): BP systolic 100–126; BP diastolic 55–72; PULSE 69–94; RESP 16–18; TEMP 97–99.2; O2SAT 93–98
[2017-07-16] MEDS: diphenhydrAMINE HCL 25 MG CAP PO PRN (00:16)
[2017-07-16] MEDS: ACETAMINOPHEN/HYDROcodone 325 MG/5 MG TAB PO PRN ×5 (04:00→20:06)
[2017-07-16 07:22] LABS: AUTOMATED NEUTROPHIL # 3.6 TH/MM3 (1.8-7.7); BASOPHIL # 0.2 TH/MM3 (0-0.2); BASOPHIL % 3.4 % (0.0-2.0); EOSINOPHIL # 0.1 TH/MM3 (0-0.4); EOSINOPHIL % 2.7 % (0.0-4.0); HEMO FLAGS DIFF FINAL; LYMPH % 8.8 % (9.0-44.0); LYMPHOCYTE # 0.4 TH/MM3 (1.0-4.8); MEAN CELL VOLUME 82.5 FL (80.0-100.0); MEAN CORPUSCULAR HEMOGLOBIN 26.9 PG (27.0-34.0); MEAN CORPUSCULAR HGB CONC 32.6 % (32.0-36.0); MONO % 12.4 % (0.0-8.0); NEUT % 72.7 % (16.0-70.0); PLATELET COUNT 218 TH/MM3 (150-450); RED BLOOD COUNT 3.39 MIL/MM3 (4.50-5.90); RED CELL DISTRIBUTION WIDTH 20.1 % (11.6-17.2)
[2017-07-16 07:43] LABS: ALKALINE PHOSPHATASE 43 U/L (45-117); ALT (GPT) 12 U/L (12-78); ANION GAP 5 MEQ/L (5-15); AST (GOT) 15 U/L (15-37); BLOOD UREA NITROGEN 45 MG/DL (7-18); CALCIUM-PROTEIN CORRECTED 7.6 MG/DL (8.5-10.1); CHLORIDE 97 MEQ/L (98-107); FREE T4 1.26 NG/DL (0.76-1.46); GLOMERULAR FILTRATION RATE 44 ML/MIN (>89); MAGNESIUM 1.7 MG/DL (1.5-2.5); POTASSIUM 4.5 MEQ/L (3.5-5.1); SODIUM (NA) 137 MEQ/L (136-145); TOTAL BILIRUBIN ADULT 1.1 MG/DL (0.2-1.0)
[2017-07-16] MEDS: INSULIN ASPART SUPPLEMENTAL SCALE SQ SCH ×4 (08:00→20:08)
[2017-07-16] MEDS: DOCUSATE SODIUM 50 MG/SENNA 8.6 MG TAB PO SCH ×2 (08:21→20:06)
[2017-07-16] MEDS: SODIUM CHLORIDE 0.9% FLUSH 10 ML FLUSH IV FLUSH SCH ×2 (08:21→20:08)
[2017-07-16] MEDS: FERROUS SULFATE 325 MG (65 MG ELEMENTAL IRON) TAB PO SCH ×2 (08:21→20:06)
[2017-07-16] MEDS: GABAPENTIN 300 MG CAP PO SCH ×3 (08:21→16:04)
[2017-07-16] MEDS: ASCORBIC ACID 500 MG TAB PO SCH ×2 (08:21→20:07)
[2017-07-16] MEDS: CYANOCOBALAMIN 100 MCG TAB PO SCH (08:21)
[2017-07-16] MEDS: ATORVASTATIN 40 MG TAB PO SCH (08:21)
[2017-07-16] MEDS: PANTOPRAZOLE SOD 40 MG DELAYED RELEASE TAB PO SCH ×2 (08:22→20:07)
[2017-07-16] MEDS: NEBIVOLOL 10 MG TAB PO SCH ×2 (08:23→20:07)
[2017-07-16] MEDS: WARFARIN SOD 4 MG TAB PO SCH (08:23)
[2017-07-16] MEDS: TORSEMIDE 20 MG TAB PO SCH ×2 (08:24→20:07)
[2017-07-16] MEDS: LISINOPRIL 20 MG TAB PO SCH (08:24)
[2017-07-16] MEDS: DIGOXIN 0.125 MG TAB PO SCH (08:25)
--- NOTE | 2017-07-16 09:53 | HHI.PR ---
Subjective Remarks HAD COLONOSCOPY AND EGD TODAY AND CAUTERY OF AVM IN STOMACH WILL TRANSFUSE 2 UNITS PRBC DW RN AND PT AM LABS 07-16 HEMOGLOBIN BETTER AT 9 STILL NEEDS TO WORK WITH PT AND OT MAY NEED HHC VS REHAB AM LABS INCREASE ACTIVITY Objective Vitals Vital Signs Date Time Temp Pulse Resp B/P (MAP) Pulse Ox O2 Delivery O2 Flow Rate FiO2 07/16/17 08:00 97.4 69 18 110/60 (77) 95 07/16/17 04:52 17 07/16/17 04:01 98.3 70 17 109/58 95 07/16/17 01:05 17 07/16/17 00:19 97.6 74 17 100/55 97 07/16/17 00:04 98.6 70 16 106/55 95 07/15/17 23:24 Nasal Cannula 2.00 07/15/17 21:40 97.1 84 18 108/61 97 07/15/17 17:30 97.5 71 20 108/58 97 07/15/17 17:25 97.0 70 17 107/49 95 07/15/17 17:20 97.1 69 19 113/63 96 07/15/17 16:00 96.3 70 17 120/57 (78) 99 07/15/17 12:00 96.4 69 17 131/70 (90) 95 07/15/17 11:30 97.6 69 20 133/59 (83) 98 Nasal Cannula 2 07/15/17 11:15 69 20 115/58 (77) 99 Nasal Cannula 2 07/15/17 11:01 97.6 86 20 108/58 (75) 97 Nasal Cannula 2 I/O 07/15/17 07/15/17 07/15/17 07/16/17 07/16/17 07/16/17 07:00 15:00 23:00 07:00 15:00 23:00 Intake Total 450 ml 500 ml 240 ml 900 ml Output Total 400 ml 450 ml Balance 50 ml 500 ml 240 ml 450 ml Intake Oral 0 ml 100 ml 240 ml 480 ml IV Total 450 ml Packed Cells 400 ml Blood Product IV Normal Saline Flush 20 ml Other 400 ml Output Urine Total 400 ml 450 ml # Voids 2 0 # Bowel Movements 0 0 0 Result Diagram: 07/16/1761107/16/17611 Other Results Laboratory Tests Test 07/15/17 05:44 07/16/17 06:12 White Blood Count 4.1 TH/MM3 5.0 TH/MM3 Red Blood Count 2.75 MIL/MM3 3.39 MIL/MM3 Hemoglobin 7.0 GM/DL 9.1 GM/DL Hematocrit 22.5 % 28.0 % Mean Corpuscular Volume 81.9 FL 82.5 FL Mean Corpuscular Hemoglobin 25.6 PG 26.9 PG Mean Corpuscular Hemoglobin Concent 31.3 % 32.6 % Red Cell Distribution Width 20.7 % 20.1 % Platelet Count 198 TH/MM3 218 TH/MM3 Mean Platelet Volume 8.5 FL 8.8 FL Prothrombin Time 13.6 SEC Prothromb Time International Ratio 1.2 RATIO Blood Urea Nitrogen 39 MG/DL 45 MG/DL Creatinine 1.43 MG/DL 1.53 MG/DL Random Glucose 142 MG/DL 48 MG/DL Calcium Level 8.0 MG/DL 6.9 MG/DL Sodium Level 139 MEQ/L 137 MEQ/L Potassium Level 3.6 MEQ/L 4.5 MEQ/L Chloride Level 99 MEQ/L 97 MEQ/L Carbon Dioxide Level 35.3 MEQ/L 35.0 MEQ/L Anion Gap 5 MEQ/L 5 MEQ/L Estimat Glomerular Filtration Rate 48 ML/MIN 44 ML/MIN Neutrophils (%) (Auto) 72.7 % Lymphocytes (%) (Auto) 8.8 % Monocytes (%) (Auto) 12.4 % Eosinophils (%) (Auto) 2.7 % Basophils (%) (Auto) 3.4 % Neutrophils # (Auto) 3.6 TH/MM3 Lymphocytes # (Auto) 0.4 TH/MM3 Monocytes # (Auto) 0.6 TH/MM3 Eosinophils # (Auto) 0.1 TH/MM3 Basophils # (Auto) 0.2 TH/MM3 CBC Comment DIFF FINAL Differential Comment Total Protein 5.8 GM/DL Albumin 2.5 GM/DL Phosphorus Level 3.8 MG/DL Magnesium Level 1.7 MG/DL Alkaline Phosphatase 43 U/L Aspartate Amino Transf (AST/SGOT) 15 U/L Alanine Aminotransferase (ALT/SGPT) 12 U/L Total Bilirubin 1.1 MG/DL Protein Corrected Calcium 7.6 MG/DL Free Thyroxine 1.26 NG/DL Thyroid Stimulating Hormone 3rd Gen 6.720 uIU/ML Imaging Last Impressions Tibia/Fibula X-Ray 07/10/17 0000 Signed Impressions: Service Date/Time: Monday, July 10, 2017 16:17 - CONCLUSION: Soft tissue swelling/hematoma suspected subcutaneous tissues without obvious fracture. Harley Medellin MD Pelvis X-Ray 07/10/17 0000 Signed Impressions: Service Date/Time: Monday, July 10, 2017 16:27 - CONCLUSION: No definite fractures. Harley Medellin MD Knee X-Ray 07/10/17 0000 Signed Impressions: Service Date/Time: Monday, July 10, 2017 16:22 - CONCLUSION: Small knee joint effusion and prominent soft tissue swelling is seen anterior to the knee. Harley Medellin MD Objective Remarks GENERAL: AWAKE ALERT AND ORIENTED X3- TALKATIVE AND COOPERATIVE SKIN: Warm and dry. RIGHT LE DRESSED lots of ecchymosis on upper extremity and lower extremity bilaterally due to the chronic Coumadin HEAD: Atraumatic. Normocephalic. EYES: Pupils equal and round. No scleral icterus. No injection or drainage. EOMI ENT: No nasal bleeding or discharge. Mucous membranes pink and moist. TONGUE MIDLINE NECK: Trachea midline. No JVD. SUPPLE CARDIOVASCULAR: Regular rate and rhythm. S1 and S2 no S3 or S4 no heave or thrill or rub or gallop RESPIRATORY: No accessory muscle use. Clear to auscultation. Breath sounds equal bilaterally. GASTROINTESTINAL: Abdomen soft, non-tender, nondistended. Hepatic and splenic margins not palpable. MUSCULOSKELETAL: Extremities without clubbing, cyanosis, or edema. No obvious deformities. Right lower extremity is dressed NEUROLOGICAL: Awake and alert. No obvious cranial nerve deficits. Motor grossly within normal limits. 4 out of 5 muscle strength in the arms and legs. Normal speech. PSYCHIATRIC: Appropriate mood and affect; insight and judgment normal. Procedures COLONOSCOPY PROCEDURE REPORT EXAM DATE: 07/15/2017 PATIENT NAME: Denys Sanon MR #: [id number] BIRTHDATE: 1935 ENDOSCOPIST: Akilah Alicia MD ORDER #: [id number] CONSUMER BANKER: Elke Iraheta and [place] [employer] STATUS: inpatient INDICATIONS: The patient is a 81 yr old male here for a colonoscopy due to iron deficiency anemia PROCEDURE PERFORMED: Colonoscopy with polypectomy MEDICATIONS: None and Per Anesthesia. PREP QUALITY: fair PREP TYPE:Conor ESTIMATED BLOOD LOSS: None CONSENT: The patient understands the risks and benefits of the procedure and understands that these risks include, but are not limited to: sedation, allergic reaction, infection, perforation and/or bleeding. Alternative means of evaluation and treatment include, among others: physical exam, x-rays, and/or surgical intervention. The patient elects to proceed with this endoscopic procedure. medical equipment was checked for proper function. Hand hygiene and appropriate measures for infection prevention was taken. After the risks, benefits and alternatives of the procedure were thoroughly explained, Informed consent was verified, confirmed and timeout was successfully executed by the treatment team. A digital exam revealed external hemorrhoids The Pentax EC-[id number] endoscope was introduced through the anus and advanced to the cecum, which was identified by both the appendix and ileocecal valve. The instrument was then slowly withdrawn as the colon was fully examined. COLON FINDINGS: A polypoid shaped flat polyp measuring 10 mm in size was found at the cecum. A polypectomy was performed using hot forceps. The resection was incomplete and the polyp tissue was completely retrieved. Illeo colonic anastomosis. Retroflexed views revealed internal hemorrhoids and Retroflexed views revealed medium internal hemorrhoids The scope was then completely withdrawn from the patient and the procedure terminated. PROCEDURE WITHDRAWAL TIME:7minutes ADVERSE EVENTS: There were no complications. IMPRESSIONS: 1. A flat polyp was found at the cecum; polypectomy was performed using hot forceps 2. Illeo colonic anastomosis 3. Retroflexed views revealed internal hemorrhoids 4. Retroflexed views revealed medium internal hemorrhoids 5. Revealed external hemorrhoids RECOMMENDATIONS: 1. Await biopsy results. Biopsy results will not be ready for 7-10 days. If you don't hear from us in two weeks, call our office for results. 2. Continue surveillance 3. Yearly hemoccult 4. High fiber diet 5. No seeds, nuts and popcorn in diet RECALL: Return 1 year Colonoscopy, pending biopsy results ENTEROSCOPY PROCEDURE REPORT EXAM DATE: 07/15/2017 PATIENT NAME: Denys Sanon MR#: [id number] BIRTHDATE: 1935 ATTENDING: Akilah Alicia MD ORDER #: [id number] CONSUMER BANKER: Elke Iraheta and [employer] STATUS: inpatient INDICATIONS: The patient is a 81 yr old male here for an enteroscopy procedure due to red rectal bleeding and iron deficiency anemia PROCEDURE PERFORMED: Small bowel enteroscopy with ablation therapy MEDICATIONS: None and Per Anesthesia. CONSENT: The patient understands the risks and benefits of the procedure and understands that these risks include, but are not limited to: sedation, allergic reaction, infection, perforation and/or bleeding. Alternative means of evaluation and treatment include, among others: physical exam, x-rays, and/or surgical intervention. The patient elects to proceed with this endoscopic procedure. medical equipment was checked for proper function. Hand hygiene and appropriate measures for infection prevention was taken. After the risks, benefits and alternatives of the procedure were thoroughly explained, Informed consent was verified, confirmed and timeout was successfully executed by the treatment team. The [id number] (Pedi C) endoscope was introduced through the mouth and advanced to the afferent jejunal loop jejunum. The prep was good. The instrument was then slowly withdrawn while examining the mucosa circumferentially. The scope was then completely withdrawn from the patient and the procedure terminated. The pulse, BP, and O2 saturation were monitored and documented by the physician and the nursing staff throughout the entire procedure. The patient was cared for as planned according to standard protocol, then discharged to recovery in stable condition and with appropriate post procedure care. Esophagitis was found in the antrum. 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 ADVERSE EVENTS: There were no complications. IMPRESSIONS: 1. Esophagitis was found in the antrum 2. 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 AVM ablated using APC RECOMMENDATIONS: 1. Anti-reflux regimen 2. Avoid NSAIDS RECALL: Return as needed for Enteroscopy Medications and IVs Current Medications Tetanus/ Diphtheria Toxoids (Tetanus/ Diphtheria Tox Adult) 0.5 ml ONCE ONCE IM ; Start 07/10/17 at 15:45; Stop 07/10/17 at 15:46; Status DC Acetaminophen/ Codeine Phosphate (Tylenol-Codeine #3) 2 tab ONCE ONCE PO ; Start 07/10/17 at 17:30; Stop 07/10/17 at 17:30; Status DC Morphine Sulfate (Morphine Inj) 4 mg ONCE ONCE IV PUSH Last administered on 18:19; Start 07/10/17 at 17:30; Stop 07/10/17 at 17:31; Status DC Ondansetron HCl (Zofran Inj) 4 mg ONCE ONCE IV PUSH Last administered on 07/10 18:20; Start 07/10/17 at 17:30; Stop 07/10/17 at 17:31; Status DC Sodium Chloride (NS Flush) 2 ml UNSCH PRN IV FLUSH FLUSH AFTER USING IV ACCESS Last administered on 07/12/17 05:43; Start 07/10/17 at 19:45 Sodium Chloride (NS Flush) 2 ml BID IV FLUSH Last administered on 07/16/17 08 :21; Start 07/10/17 at 21:00 Ondansetron HCl (Zofran Inj) 4 mg Q6H PRN IVP NAUSEA OR VOMITING; Start at 19:45 Acetaminophen (Tylenol) 650 mg Q6H PRN PO FEVER/PAIN SCALE 1 TO 2 Last administered on 07/16/17 00:16; Start 07/10/17 at 19:45 Acetaminophen/ Hydrocodone Bitart ([place] 5-325 Mg) 1 tab Q4H PRN PO PAIN SCALE 3 TO 5 Last administered on 07/16/17 08:23; Start 07/10/17 at 19:45 Morphine Sulfate (Morphine Inj) 2 mg Q3H PRN IV PUSH Pain 6-10 Last administered on 07/13/17 02:53; Start 07/10/17 at 19:45 Senna/Docusate Sodium (Helene-Colace) 1 tab BID PO Last administered on 08:21; Start 07/10/17 at 21:00 Magnesium Hydroxide (Milk Of Magnesia Liq) 30 ml Q12H PRN PO Mild constipation ; Start 07/10/17 at 19:45 Sennosides (Senokot) 17.2 mg Q12H PRN PO Moderate constipation Last administered on 07/16/17 08:22; Start 07/10/17 at 19:45 Bisacodyl (Dulcolax Supp) 10 mg DAILY PRN RECTAL SEVERE CONSITIPATION Last administered on 07/13/17 02:29; Start 07/10/17 at 19:45 Lactulose (Lactulose Liq) 30 ml DAILY PRN PO SEVERE CONSITIPATION; Start 07/10 at 19:45 Amitriptyline HCl (Elavil) 50 mg HS PO Last administered on 07/15/17 21:36; Start 07/10/17 at 21:00 Atorvastatin Calcium (Lipitor) 40 mg DAILY PO Last administered on 07/16/17 08:21; Start 07/11/17 at 09:00 Cholecalciferol (Vitamin D3) 5,000 units HS PO Last administered on 07/15/17 21:35; Start 07/10/17 at 21:00 Cyanocobalamin (Vitamin B12) 100 mcg DAILY PO Last administered on 07/16/17 08:21; Start 07/11/17 at 09:00 Digoxin (Lanoxin) 0.125 mg DAILY PO Last administered on 07/16/17 08:25; Start 07/11/17 at 09:00 Finasteride (Proscar) 5 mg HS PO Last administered on 07/15/17 21:36; Start 07/10/17 at 21:00 Gabapentin (Neurontin) 300 mg TID PO Last administered on 07/16/17 08:21; Start 07/11/17 at 09:00 Insulin Detemir (Levemir Inj) 15 units HS SQ Last administered on 07/15/17 21 :38; Start 07/10/17 at 21:00 Albuterol/ Ipratropium (Duoneb Neb) 1 ampule Q4HR NEB PRN NEB SOB/WHEEZING; Start 07/10/17 at 20:15 Lisinopril (Prinivil) 20 mg DAILY PO Last administered on 07/13/17 08:21; Start 07/11/17 at 09:00 Lorazepam (Ativan) 2 mg Q6H PRN PO ANXIETY Last administered on 07/15/17 13: 23; Start 07/10/17 at 20:15 Nebivolol (Bystolic) 10 mg BID PO Last administered on 07/15/17 21:36; Start 07/10/17 at 21:00 Torsemide (Demadex) 40 mg BID PO Last administered on 07/15/17 21:36; Start 07/10/17 at 21:00 Trazodone HCl (Desyrel) 50 mg HS PO Last administered on 07/15/17 21:37; Start 07/10/17 at 21:00 Patient Own Medication PT OWN MED: (Acarb... DAILY@1700 PO ; Start 07/11/17 at 17:00; Status Future Hold Patient Own Medication PT OWN MED: (Acarb... DAILY@0800 PO ; Start 07/11/17 at 08:00; Status Future Hold Patient Own Medication PT OWN MED: (Clobeta... BID PRN TOPICAL RASH/ITCHING; Start 07/10/17 at 20:30; Status Future Hold Pantoprazole Sodium (Protonix) 40 mg BID PO Last administered on 07/16/17 08: 22; Start 07/10/17 at 21:00 Ferrous Sulfate (Ferrous Sulfate) 325 mg BID PO Last administered on 08:21; Start 07/11/17 at 09:00 Ascorbic Acid (Vitamin C) 250 mg BID PO Last administered on 07/16/17 08:21; Start 07/11/17 at 09:00 Miscellaneous (Pill Splitter) 1 ea UNSCH PRN OTHER SEE LABEL COMMENTS Last administered on 07/12/17 08:48; Start 07/11/17 at 09:00 Dextrose (D50w (Vial) Inj) 50 ml UNSCH PRN IV PUSH HYPOGLYCEMIA-SEE COMMENTS; Start 07/11/17 at 12:45; Stop 07/12/17 at 10:11; Status DC Glucagon (Glucagon Inj) 1 mg UNSCH PRN OTHER HYPOGLYCEMIA-SEE COMMENTS; Start 07/11/17 at 12:45; Stop 07/12/17 at 10:11; Status DC Insulin Aspart (NovoLOG SUPPLEMENTAL SCALE) 1 ACHS SLIDING SCALE SQ Last administered on 07/15/17 21:37; Start 07/11/17 at 17:00 Furosemide (Lasix Inj) 10 mg ONCE ONCE IV PUSH Last administered on 03:37; Start 07/11/17 at 15:30; Stop 07/11/17 at 15:31; Status DC Iron Sucrose (Venofer Inj) 200 mg ONCE ONCE IV PUSH ; Start 07/12/17 at 06:00 ; Stop 07/12/17 at 06:01; Status Cancel Iron Sucrose 200 mg/Sodium Chloride 110 ml @ 110 mls/hr ONCE ONCE IV Last administered on 07/12/17 07:23; Start 07/12/17 at 06:00; Stop 07/12/17 at 06 :59; Status DC Dextrose (D50w (Vial) Inj) 50 ml UNSCH PRN IV PUSH HYPOGLYCEMIA-SEE COMMENTS; Start 07/12/17 at 09:30 Glucagon (Glucagon Inj) 1 mg UNSCH PRN OTHER HYPOGLYCEMIA-SEE COMMENTS; Start 07/12/17 at 09:30 Polyethylene Glycol/ Electrolytes (Colyte Liq) 4,000 ml ONCE ONCE PO Last administered on 07/12/17 16:55; Start 07/12/17 at 16:00; Stop 07/12/17 at 16 :01; Status DC Lactated Ringer's 1,000 ml @ 30 mls/hr Q24H PRN IV SEE LABEL COMMENTS; Start 07/12/17 at 20:15; Stop 07/15/17 at 20:14; Status DC Sodium Chloride 500 ml @ 30 mls/hr [id number] PRN IV SEE LABEL COMMENTS; Start at 20:15; Stop 07/15/17 at 20:14; Status DC Metoprolol Tartrate (Lopressor) 25 mg SHIPPING/RECEIVING MANAGER PRN PO SEE LABEL COMMENTS; Start 07/12/17 at 20:15; Stop 07/15/17 at 20:14; Status DC Povidone Iodine (Betadine 5% Antisepsis Kit) 1 applic SHIPPING/RECEIVING MANAGER PRN EACH NARE SEE LABEL COMMENTS; Start 07/12/17 at 20:15; Stop 07/15/17 at 20:14; Status DC Chlorhexidine Gluconate (Chlorhexidine 2% Cloth) 3 pack SHIPPING/RECEIVING MANAGER PRN TOPICAL SEE LABEL COMMENTS; Start 07/12/17 at 20:15; Stop 07/15/17 at 20:14; Status DC Bisacodyl (Dulcolax Ec) 10 mg ONCE ONCE PO Last administered on 07/13/17 08: 20; Start 07/13/17 at 08:15; Stop 07/13/17 at 08:16; Status DC Polyethylene Glycol/ Electrolytes (Colyte Liq) 1 ml ONCE ONCE PO ; Start 07/13 at 14:00; Stop 07/13/17 at 14:00; Status DC Polyethylene Glycol/ Electrolytes (Colyte Liq) 4,000 ml ONCE ONCE PO Last administered on 07/13/17 15:40; Start 07/13/17 at 14:00; Stop 07/13/17 at 14 :01; Status DC Polyethylene Glycol (Miralax) 238 gm ONCE ONCE PO Last administered on 12:33; Start 07/14/17 at 10:45; Stop 07/14/17 at 10:49; Status DC Bisacodyl (Dulcolax Ec) 20 mg ONCE ONCE PO Last administered on 07/14/17 12: 33; Start 07/14/17 at 11:00; Stop 07/14/17 at 11:01; Status DC Warfarin Sodium (Coumadin) 4 mg DAILY PO Last administered on 07/16/17 08:23 ; Start 07/15/17 at 09:00 Sodium Chloride 1,000 ml @ 100 mls/hr Q10H IV Last administered on 07/14/17 11:00; Start 07/14/17 at 11:00; Stop 07/14/17 at 20:59; Status DC Sodium Chloride 250 ml @ 15 mls/hr ONCE ONCE IV Last administered on 09:00; Start 07/15/17 at 09:00; Stop 07/16/17 at 01:39; Status DC Acetaminophen (Tylenol) 650 mg Q4H PRN PO SEE LABEL COMMENTS Last administered on 07/15/17 17:08; Start 07/15/17 at 09:00 Diphenhydramine HCl (Benadryl) 25 mg Q4H PRN PO SEE LABEL COMMENTS Last administered on 07/16/17 00:16; Start 07/15/17 at 09:00; Stop 07/16/17 at 00 :16; Status DC Furosemide (Lasix Inj) 20 mg ONCE ONCE IV PUSH Last administered on 21:35; Start 07/15/17 at 09:00; Stop 07/15/17 at 09:01; Status DC Miscellaneous Information ALL NURSING DEPARTME... UNSCH PRN .XX SEE LABEL COMMENTS; Start 07/15/17 at 10:24; Stop 07/16/17 at 10:23 Morphine Sulfate (*morphine INJ PERIprocedure ONLY) 8 mg STK-MED ONCE .ROUTE Last administered on 11/24/17at 11:22; Start 07/15/17 at 11:22; Stop 07/15/17 at 11:23; Status DC A/P Problem List: (1) Fall ICD Code: W19.XXXA - Unspecified fall, initial encounter (2) Gait instability ICD Code: R26.81 - Unsteadiness on feet (3) Effusion, left knee ICD Code: M25.462 - Effusion, left knee Status: Acute (4) Hematoma of right lower extremity ICD Code: S80.11XA - Contusion of right lower leg, initial encounter Status: Acute (5) A-fib ICD Code: I48.91 - Unspecified atrial fibrillation (6) CHF (congestive heart failure) ICD Code: I50.9 - Heart failure, unspecified (7) DM (diabetes mellitus) ICD Code: E11.9 - Type 2 diabetes mellitus without complications Assessment and Plan In summary this is an 81-year-old male admitted to the hospital after a mechanical fall. He tripped and fell injuring his left knee and right lower extremity. He did not sustain any fractures. He was found to be severely anemic on presentation. His Hemoccult is positive. History of AVM. He has been transfused and there is plan for colonoscopy. Prep for colonoscopy is ongoing. - Fall: s/p mechanical fall at home after tripping on carpet, no LOC or head trauma reported. - Left Knee Effusion: secondary to fall, left knee tenderness to palpation, decreased ROM. Left Knee X-ray w/ small knee joint effusion and prominent soft tissue swelling, images reviewed by me. Analgesics as needed. Patient is deconditioned. Will need SNF to continue rehabilitation efforts. - RLE Hematoma: secondary to fall/injury, Tib-Fib X-ray w/ soft tissue swelling/hematoma, no fracture, images reviewed by me. On Coumadin for A-fib, INR therapeutic at 2.0. Will monitor. - Acute on chronic anemia : Hemoglobin was 7.2 dropped to 6.9 Which may be contributing to the patient frequent fall, appreciate hematology consult who indicated the patient has iron deficiency anemia from chronic GI bleeding. 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 He has been given iron infusion. Patient received PRBC transfusion and hemoglobin improved. GI following HEMOGLOBIN IS NOW 9.1 - Intermittent GI bleeding and history of AVM. GI is following. Plan for colonoscopy per GI --HAD COLONOSCOPY AND EGD ON 07-15 - Gait Instability: secondary to above. Unable to ambulate safely without assistance at this time. Continue PT, will need SNF. Patient is now agreeable. - A-fib: Chronic. On Coumadin. INR therapeutic on presentation, INR trending down to 1.3. Coumadin was held. Given no signs of active bleeding, Resume home dose Coumadin. Follow INR. - CHF: Chronic. Diastolic. Echo 06/09/17 w/ EF 55-60%. However he does have reduced right ventricular systolic function with dilated right ventricle and atrium and increased pulmonary hypertension 60 mmHg, Resume home medications. Monitor I/O. - DM: Sliding scale w/ Accu-Cheks. Resume home Insulin. - DVT Prophylaxis: On Coumadin as above. Anemia transfuse 2 units packed red blood cells 11-24 AM LABS PT AND OT PT INR Discharge Planning PT AND OT Virgil Shea DO Jul 16, 2017 09:53
[2017-07-16 12:38] LABS: HEMOGLOBIN A1a 1.1 %; HEMOGLOBIN A1b 0.9 %; HEMOGLOBIN Ao 84.2 %; HEMOGLOBIN LA1C 1.7 %; HEMOGLOBIN P3 5.8 %
[2017-07-16] MEDS: FINASTERIDE 5 MG TAB PO SCH (20:07)
[2017-07-16] MEDS: CHOLECALCIFEROL (VIT D3) 5000 UNIT CAP PO SCH (20:07)
[2017-07-16] MEDS: AMITRIPTYLINE HCL 50 MG TAB PO SCH (20:07)
[2017-07-16] MEDS: traZODone HCL 50 MG TAB PO SCH (20:07)
[2017-07-16] MEDS: INSULIN DETEMIR 100 UNITS/ML VIAL SQ SCH (20:08)
[2017-07-17] MEDS: LORazepam 2 MG TAB PO PRN ×4 (00:01→18:20)
[2017-07-17] MEDS: ACETAMINOPHEN/HYDROcodone 325 MG/5 MG TAB PO PRN ×4 (00:02→18:20)
[2017-07-17 00:46] VITALS: BP 126/67; PULSE 71; RESP 17; TEMP 96.9; O2SAT 97
[2017-07-17 05:27] LABS: AUTOMATED NEUTROPHIL # 4.4 TH/MM3 (1.8-7.7); BASOPHIL # 0.1 TH/MM3 (0-0.2); EOSINOPHIL # 0.2 TH/MM3 (0-0.4); EOSINOPHIL % 3.8 % (0.0-4.0); HEMO FLAGS DIFF FINAL; LYMPH % 7.7 % (9.0-44.0); LYMPHOCYTE # 0.4 TH/MM3 (1.0-4.8); MEAN CELL VOLUME 82.5 FL (80.0-100.0); MEAN CORPUSCULAR HEMOGLOBIN 26.3 PG (27.0-34.0); MEAN CORPUSCULAR HGB CONC 31.9 % (32.0-36.0); MONO % 10.4 % (0.0-8.0); NEUT % 77.1 % (16.0-70.0); PLATELET COUNT 204 TH/MM3 (150-450); RED BLOOD COUNT 3.51 MIL/MM3 (4.50-5.90); RED CELL DISTRIBUTION WIDTH 20.3 % (11.6-17.2); WHITE BLOOD COUNT 5.7 TH/MM3 (4.0-11.0)
[2017-07-17 05:35] LABS: INTERNATIONAL NORMALIZED RATIO 1.1 RATIO; PROTHROMBIN TIME - PATIENT 12.7 SEC (9.8-11.6)
[2017-07-17 06:07] LABS: ALKALINE PHOSPHATASE 45 U/L (45-117); ALT (GPT) 11 U/L (12-78); ANION GAP 7 MEQ/L (5-15); AST (GOT) 14 U/L (15-37); BICARBONATE 34.2 MEQ/L (21.0-32.0); BLOOD UREA NITROGEN 41 MG/DL (7-18); CHLORIDE 97 MEQ/L (98-107); GLOMERULAR FILTRATION RATE 49 ML/MIN (>89); MAGNESIUM 1.8 MG/DL (1.5-2.5); POTASSIUM 3.9 MEQ/L (3.5-5.1); SODIUM (NA) 138 MEQ/L (136-145); TOTAL BILIRUBIN ADULT 1.1 MG/DL (0.2-1.0)
[2017-07-17] MEDS: INSULIN ASPART SUPPLEMENTAL SCALE SQ SCH ×4 (07:16→20:05)
[2017-07-17 07:51] VITALS: BP 133/66; PULSE 70; RESP 17; TEMP 96.2; O2SAT 92
[2017-07-17] MEDS: DOCUSATE SODIUM 50 MG/SENNA 8.6 MG TAB PO SCH ×2 (10:04→20:03)
[2017-07-17] MEDS: DIGOXIN 0.125 MG TAB PO SCH (10:04)
[2017-07-17] MEDS: GABAPENTIN 300 MG CAP PO SCH ×3 (10:04→18:20)
[2017-07-17] MEDS: LISINOPRIL 20 MG TAB PO SCH (10:05)
[2017-07-17] MEDS: ASCORBIC ACID 500 MG TAB PO SCH ×2 (10:05→20:04)
[2017-07-17] MEDS: PANTOPRAZOLE SOD 40 MG DELAYED RELEASE TAB PO SCH ×2 (10:06→20:03)
[2017-07-17] MEDS: ATORVASTATIN 40 MG TAB PO SCH (10:06)
[2017-07-17] MEDS: FERROUS SULFATE 325 MG (65 MG ELEMENTAL IRON) TAB PO SCH ×2 (10:06→20:03)
[2017-07-17] MEDS: WARFARIN SOD 4 MG TAB PO SCH (10:06)
[2017-07-17] MEDS: CYANOCOBALAMIN 100 MCG TAB PO SCH (10:06)
[2017-07-17] MEDS: TORSEMIDE 20 MG TAB PO SCH ×2 (10:07→20:03)
[2017-07-17] MEDS: NEBIVOLOL 10 MG TAB PO SCH ×2 (10:07→20:03)
[2017-07-17] MEDS: SODIUM CHLORIDE 0.9% FLUSH 10 ML FLUSH IV FLUSH SCH ×2 (10:07→20:04)
--- NOTE | 2017-07-17 10:10 | HHI.PR ---
Subjective Remarks HAD COLONOSCOPY AND EGD TODAY AND CAUTERY OF AVM IN STOMACH WILL TRANSFUSE 2 UNITS PRBC DW RN AND PT AM LABS 07-16 HEMOGLOBIN BETTER AT 9 STILL NEEDS TO WORK WITH PT AND OT MAY NEED HHC VS REHAB AM LABS INCREASE ACTIVITY 07-17 APPEARS TO HAVE CELLULITIS OF LEFT KNEE LEG ANTIBIOTICS DW RN AND PT START ROCEPHIN Objective Vitals Vital Signs Date Time Temp Pulse Resp B/P (MAP) Pulse Ox O2 Delivery O2 Flow Rate FiO2 07/17/17 07:51 96.2 70 17 133/66 (88) 92 07/17/17 07:16 17 07/17/17 00:46 96.9 71 17 126/67 (86) 97 07/16/17 20:12 97.0 70 17 126/66 (86) 97 07/16/17 15:59 97 Room Air 07/16/17 15:59 97.1 70 17 124/64 (84) 98 07/16/17 11:36 97.0 72 18 126/67 (86) 96 I/O 07/16/17 07/16/17 07/16/17 07/17/17 07/17/17 07/17/17 07:00 15:00 23:00 07:00 15:00 23:00 Intake Total 900 ml 720 ml 240 ml Output Total 450 ml 500 ml 700 ml Balance 450 ml 720 ml -260 ml -700 ml Intake Oral 480 ml 720 ml 240 ml Packed Cells 400 ml Blood Product IV Normal Saline Flush 20 ml Output Urine Total 450 ml 500 ml 700 ml # Voids 3 # Bowel Movements 0 0 0 Result Diagram: 07/17/17 0500 07/17/17 0500 Other Results Laboratory Tests Test 07/15/17 05:44 07/16/17 06:12 07/17/17 05:00 White Blood Count 4.1 TH/MM3 5.0 TH/MM3 5.7 TH/MM3 Red Blood Count 2.75 MIL/MM3 3.39 MIL/MM3 3.51 MIL/MM3 Hemoglobin 7.0 GM/DL 9.1 GM/DL 9.2 GM/DL Hematocrit 22.5 % 28.0 % 29.0 % Mean Corpuscular Volume 81.9 FL 82.5 FL 82.5 FL Mean Corpuscular Hemoglobin 25.6 PG 26.9 PG 26.3 PG Mean Corpuscular Hemoglobin Concent 31.3 % 32.6 % 31.9 % Red Cell Distribution Width 20.7 % 20.1 % 20.3 % Platelet Count 198 TH/MM3 218 TH/MM3 204 TH/MM3 Mean Platelet Volume 8.5 FL 8.8 FL 8.4 FL Prothrombin Time 13.6 SEC 12.7 SEC Prothromb Time International Ratio 1.2 RATIO 1.1 RATIO Blood Urea Nitrogen 39 MG/DL 45 MG/DL 41 MG/DL Creatinine 1.43 MG/DL 1.53 MG/DL 1.40 MG/DL Random Glucose 142 MG/DL 48 MG/DL 151 MG/DL Calcium Level 8.0 MG/DL 6.9 MG/DL 8.6 MG/DL Sodium Level 139 MEQ/L 137 MEQ/L 138 MEQ/L Potassium Level 3.6 MEQ/L 4.5 MEQ/L 3.9 MEQ/L Chloride Level 99 MEQ/L 97 MEQ/L 97 MEQ/L Carbon Dioxide Level 35.3 MEQ/L 35.0 MEQ/L 34.2 MEQ/L Anion Gap 5 MEQ/L 5 MEQ/L 7 MEQ/L Estimat Glomerular Filtration Rate 48 ML/MIN 44 ML/MIN 49 ML/MIN Neutrophils (%) (Auto) 72.7 % 77.1 % Lymphocytes (%) (Auto) 8.8 % 7.7 % Monocytes (%) (Auto) 12.4 % 10.4 % Eosinophils (%) (Auto) 2.7 % 3.8 % Basophils (%) (Auto) 3.4 % 1.0 % Neutrophils # (Auto) 3.6 TH/MM3 4.4 TH/MM3 Lymphocytes # (Auto) 0.4 TH/MM3 0.4 TH/MM3 Monocytes # (Auto) 0.6 TH/MM3 0.6 TH/MM3 Eosinophils # (Auto) 0.1 TH/MM3 0.2 TH/MM3 Basophils # (Auto) 0.2 TH/MM3 0.1 TH/MM3 CBC Comment DIFF FINAL DIFF FINAL Differential Comment Total Protein 5.8 GM/DL 5.8 GM/DL Albumin 2.5 GM/DL 2.4 GM/DL Phosphorus Level 3.8 MG/DL 3.2 MG/DL Magnesium Level 1.7 MG/DL 1.8 MG/DL Alkaline Phosphatase 43 U/L 45 U/L Aspartate Amino Transf (AST/SGOT) 15 U/L 14 U/L Alanine Aminotransferase (ALT/SGPT) 12 U/L 11 U/L Total Bilirubin 1.1 MG/DL 1.1 MG/DL Hemoglobin A1c 6.4 % Protein Corrected Calcium 7.6 MG/DL Free Thyroxine 1.26 NG/DL Thyroid Stimulating Hormone 3rd Gen 6.720 uIU/ML Imaging Last Impressions Tibia/Fibula X-Ray 07/10/17 0000 Signed Impressions: Service Date/Time: Monday, July 10, 2017 16:17 - CONCLUSION: Soft tissue swelling/hematoma suspected subcutaneous tissues without obvious fracture. Harley Medellin MD Pelvis X-Ray 07/10/17 0000 Signed Impressions: Service Date/Time: Monday, July 10, 2017 16:27 - CONCLUSION: No definite fractures. Harley Medellin MD Knee X-Ray 07/10/17 0000 Signed Impressions: Service Date/Time: Monday, July 10, 2017 16:22 - CONCLUSION: Small knee joint effusion and prominent soft tissue swelling is seen anterior to the knee. Harley Medellin MD Objective Remarks GENERAL: AWAKE ALERT AND ORIENTED X3- TALKATIVE AND COOPERATIVE SKIN: Warm and dry. RIGHT LE DRESSED lots of ecchymosis on upper extremity and lower extremity bilaterally due to the chronic Coumadin HEAD: Atraumatic. Normocephalic. EYES: Pupils equal and round. No scleral icterus. No injection or drainage. EOMI ENT: No nasal bleeding or discharge. Mucous membranes pink and moist. TONGUE MIDLINE NECK: Trachea midline. No JVD. SUPPLE CARDIOVASCULAR: Regular rate and rhythm. S1 and S2 no S3 or S4 no heave or thrill or rub or gallop RESPIRATORY: No accessory muscle use. Clear to auscultation. Breath sounds equal bilaterally. GASTROINTESTINAL: Abdomen soft, non-tender, nondistended. Hepatic and splenic margins not palpable. MUSCULOSKELETAL: Extremities without clubbing, cyanosis, or edema. No obvious deformities. Right lower extremity is dressed NEUROLOGICAL: Awake and alert. No obvious cranial nerve deficits. Motor grossly within normal limits. 4 out of 5 muscle strength in the arms and legs. Normal speech. PSYCHIATRIC: Appropriate mood and affect; insight and judgment normal. Procedures COLONOSCOPY PROCEDURE REPORT EXAM DATE: 07/15/2017 PATIENT NAME: Denys Sanon MR #: [id number] BIRTHDATE: 1935 ENDOSCOPIST: Akilah Alicia MD ORDER #: [id number] ADMINISTRATIVE DIETITIAN: Elke Iraheta and [place] [facility] STATUS: inpatient INDICATIONS: The patient is a 81 yr old male here for a colonoscopy due to iron deficiency anemia PROCEDURE PERFORMED: Colonoscopy with polypectomy MEDICATIONS: None and Per Anesthesia. PREP QUALITY: fair PREP TYPE:GoLytely ESTIMATED BLOOD LOSS: None CONSENT: The patient understands the risks and benefits of the procedure and understands that these risks include, but are not limited to: sedation, allergic reaction, infection, perforation and/or bleeding. Alternative means of evaluation and treatment include, among others: physical exam, x-rays, and/or surgical intervention. The patient elects to proceed with this endoscopic procedure. medical equipment was checked for proper function. Hand hygiene and appropriate measures for infection prevention was taken. After the risks, benefits and alternatives of the procedure were thoroughly explained, Informed consent was verified, confirmed and timeout was successfully executed by the treatment team. A digital exam revealed external hemorrhoids The Pentax EC-[id number] endoscope was introduced through the anus and advanced to the cecum, which was identified by both the appendix and ileocecal valve. The instrument was then slowly withdrawn as the colon was fully examined. COLON FINDINGS: A polypoid shaped flat polyp measuring 10 mm in size was found at the cecum. A polypectomy was performed using hot forceps. The resection was incomplete and the polyp tissue was completely retrieved. Illeo colonic anastomosis. Retroflexed views revealed internal hemorrhoids and Retroflexed views revealed medium internal hemorrhoids The scope was then completely withdrawn from the patient and the procedure terminated. PROCEDURE WITHDRAWAL TIME:7minutes ADVERSE EVENTS: There were no complications. IMPRESSIONS: 1. A flat polyp was found at the cecum; polypectomy was performed using hot forceps 2. Illeo colonic anastomosis 3. Retroflexed views revealed internal hemorrhoids 4. Retroflexed views revealed medium internal hemorrhoids 5. Revealed external hemorrhoids RECOMMENDATIONS: 1. Await biopsy results. Biopsy results will not be ready for 7-10 days. If you don't hear from us in two weeks, call our office for results. 2. Continue surveillance 3. Yearly hemoccult 4. High fiber diet 5. No seeds, nuts and popcorn in diet RECALL: Return 1 year Colonoscopy, pending biopsy results ENTEROSCOPY PROCEDURE REPORT EXAM DATE: 07/15/2017 PATIENT NAME: Denys Sanon MR#: [id number] BIRTHDATE: 1935 ATTENDING: Akilah Alicia MD ORDER #: [id number] ADMINISTRATIVE DIETITIAN: Elke Iraheta and [place] STATUS: inpatient INDICATIONS: The patient is a 81 yr old male here for an enteroscopy procedure due to red rectal bleeding and iron deficiency anemia PROCEDURE PERFORMED: Small bowel enteroscopy with ablation therapy MEDICATIONS: None and Per Anesthesia. CONSENT: The patient understands the risks and benefits of the procedure and understands that these risks include, but are not limited to: sedation, allergic reaction, infection, perforation and/or bleeding. Alternative means of evaluation and treatment include, among others: physical exam, x-rays, and/or surgical intervention. The patient elects to proceed with this endoscopic procedure. medical equipment was checked for proper function. Hand hygiene and appropriate measures for infection prevention was taken. After the risks, benefits and alternatives of the procedure were thoroughly explained, Informed consent was verified, confirmed and timeout was successfully executed by the treatment team. The [id number] (Pedi C) endoscope was introduced through the mouth and advanced to the afferent jejunal loop jejunum. The prep was good. The instrument was then slowly withdrawn while examining the mucosa circumferentially. The scope was then completely withdrawn from the patient and the procedure terminated. The pulse, BP, and O2 saturation were monitored and documented by the physician and the nursing staff throughout the entire procedure. The patient was cared for as planned according to standard protocol, then discharged to recovery in stable condition and with appropriate post procedure care. Esophagitis was found in the antrum. 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 ADVERSE EVENTS: There were no complications. IMPRESSIONS: 1. Esophagitis was found in the antrum 2. 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 AVM ablated using APC RECOMMENDATIONS: 1. Anti-reflux regimen 2. Avoid NSAIDS RECALL: Return as needed for Enteroscopy Medications and IVs Current Medications Tetanus/ Diphtheria Toxoids (Tetanus/ Diphtheria Tox Adult) 0.5 ml ONCE ONCE IM ; Start 07/10/17 at 15:45; Stop 07/10/17 at 15:46; Status DC Acetaminophen/ Codeine Phosphate (Tylenol-Codeine #3) 2 tab ONCE ONCE PO ; Start 07/10/17 at 17:30; Stop 07/10/17 at 17:30; Status DC Morphine Sulfate (Morphine Inj) 4 mg ONCE ONCE IV PUSH Last administered on 18:19; Start 07/10/17 at 17:30; Stop 07/10/17 at 17:31; Status DC Ondansetron HCl (Zofran Inj) 4 mg ONCE ONCE IV PUSH Last administered on 07/10 18:20; Start 07/10/17 at 17:30; Stop 07/10/17 at 17:31; Status DC Sodium Chloride (NS Flush) 2 ml UNSCH PRN IV FLUSH FLUSH AFTER USING IV ACCESS Last administered on 07/12/17 05:43; Start 07/10/17 at 19:45 Sodium Chloride (NS Flush) 2 ml BID IV FLUSH Last administered on 07/16/17 20 :08; Start 07/10/17 at 21:00 Ondansetron HCl (Zofran Inj) 4 mg Q6H PRN IVP NAUSEA OR VOMITING; Start at 19:45 Acetaminophen (Tylenol) 650 mg Q6H PRN PO FEVER/PAIN SCALE 1 TO 2 Last administered on 07/16/17 00:16; Start 07/10/17 at 19:45 Acetaminophen/ Hydrocodone Bitart (Harrod 5-325 Mg) 1 tab Q4H PRN PO PAIN SCALE 3 TO 5 Last administered on 07/17/17 06:16; Start 07/10/17 at 19:45 Morphine Sulfate (Morphine Inj) 2 mg Q3H PRN IV PUSH Pain 6-10 Last administered on 07/13/17 02:53; Start 07/10/17 at 19:45 Senna/Docusate Sodium (Helene-Colace) 1 tab BID PO Last administered on 20:06; Start 07/10/17 at 21:00 Magnesium Hydroxide (Milk Of Magnesia Liq) 30 ml Q12H PRN PO Mild constipation ; Start 07/10/17 at 19:45 Sennosides (Senokot) 17.2 mg Q12H PRN PO Moderate constipation Last administered on 07/16/17 08:22; Start 07/10/17 at 19:45 Bisacodyl (Dulcolax Supp) 10 mg DAILY PRN RECTAL SEVERE CONSITIPATION Last administered on 07/13/17 02:29; Start 07/10/17 at 19:45 Lactulose (Lactulose Liq) 30 ml DAILY PRN PO SEVERE CONSITIPATION; Start 07/10 at 19:45 Amitriptyline HCl (Elavil) 50 mg HS PO Last administered on 07/16/17 20:07; Start 07/10/17 at 21:00 Atorvastatin Calcium (Lipitor) 40 mg DAILY PO Last administered on 07/16/17 08:21; Start 07/11/17 at 09:00 Cholecalciferol (Vitamin D3) 5,000 units HS PO Last administered on 07/16/17 20:07; Start 07/10/17 at 21:00 Cyanocobalamin (Vitamin B12) 100 mcg DAILY PO Last administered on 07/16/17 08:21; Start 07/11/17 at 09:00 Digoxin (Lanoxin) 0.125 mg DAILY PO Last administered on 07/16/17 08:25; Start 07/11/17 at 09:00 Finasteride (Proscar) 5 mg HS PO Last administered on 07/16/17 20:07; Start 07/10/17 at 21:00 Gabapentin (Neurontin) 300 mg TID PO Last administered on 07/16/17 16:04; Start 07/11/17 at 09:00 Insulin Detemir (Levemir Inj) 15 units HS SQ Last administered on 07/16/17 20 :08; Start 07/10/17 at 21:00 Albuterol/ Ipratropium (Duoneb Neb) 1 ampule Q4HR NEB PRN NEB SOB/WHEEZING; Start 07/10/17 at 20:15 Lisinopril (Prinivil) 20 mg DAILY PO Last administered on 07/13/17 08:21; Start 07/11/17 at 09:00 Lorazepam (Ativan) 2 mg Q6H PRN PO ANXIETY Last administered on 07/17/17 06: 16; Start 07/10/17 at 20:15 Nebivolol (Bystolic) 10 mg BID PO Last administered on 07/16/17 20:07; Start 07/10/17 at 21:00 Torsemide (Demadex) 40 mg BID PO Last administered on 07/16/17 20:07; Start 07/10/17 at 21:00 Trazodone HCl (Desyrel) 50 mg HS PO Last administered on 07/16/17 20:07; Start 07/10/17 at 21:00 Patient Own Medication PT OWN MED: (Acarb... DAILY@1700 PO ; Start 07/11/17 at 17:00; Status Future Hold Patient Own Medication PT OWN MED: (Acarb... DAILY@0800 PO ; Start 07/11/17 at 08:00; Status Future Hold Patient Own Medication PT OWN MED: (Clobeta... BID PRN TOPICAL RASH/ITCHING; Start 07/10/17 at 20:30; Status Future Hold Pantoprazole Sodium (Protonix) 40 mg BID PO Last administered on 07/16/17 20: 07; Start 07/10/17 at 21:00 Ferrous Sulfate (Ferrous Sulfate) 325 mg BID PO Last administered on 20:06; Start 07/11/17 at 09:00 Ascorbic Acid (Vitamin C) 250 mg BID PO Last administered on 07/16/17 20:07; Start 07/11/17 at 09:00 Miscellaneous (Pill Splitter) 1 ea UNSCH PRN OTHER SEE LABEL COMMENTS Last administered on 07/12/17 08:48; Start 07/11/17 at 09:00 Dextrose (D50w (Vial) Inj) 50 ml UNSCH PRN IV PUSH HYPOGLYCEMIA-SEE COMMENTS; Start 07/11/17 at 12:45; Stop 07/12/17 at 10:11; Status DC Glucagon (Glucagon Inj) 1 mg UNSCH PRN OTHER HYPOGLYCEMIA-SEE COMMENTS; Start 07/11/17 at 12:45; Stop 07/12/17 at 10:11; Status DC Insulin Aspart (NovoLOG SUPPLEMENTAL SCALE) 1 ACHS SLIDING SCALE SQ Last administered on 07/16/17 20:08; Start 07/11/17 at 17:00 Furosemide (Lasix Inj) 10 mg ONCE ONCE IV PUSH Last administered on 03:37; Start 07/11/17 at 15:30; Stop 07/11/17 at 15:31; Status DC Iron Sucrose (Venofer Inj) 200 mg ONCE ONCE IV PUSH ; Start 07/12/17 at 06:00 ; Stop 07/12/17 at 06:01; Status Cancel Iron Sucrose 200 mg/Sodium Chloride 110 ml @ 110 mls/hr ONCE ONCE IV Last administered on 07/12/17 07:23; Start 07/12/17 at 06:00; Stop 07/12/17 at 06 :59; Status DC Dextrose (D50w (Vial) Inj) 50 ml UNSCH PRN IV PUSH HYPOGLYCEMIA-SEE COMMENTS; Start 07/12/17 at 09:30 Glucagon (Glucagon Inj) 1 mg UNSCH PRN OTHER HYPOGLYCEMIA-SEE COMMENTS; Start 07/12/17 at 09:30 Polyethylene Glycol/ Electrolytes (Colyte Liq) 4,000 ml ONCE ONCE PO Last administered on 07/12/17 16:55; Start 07/12/17 at 16:00; Stop 07/12/17 at 16 :01; Status DC Lactated Ringer's 1,000 ml @ 30 mls/hr Q24H PRN IV SEE LABEL COMMENTS; Start 07/12/17 at 20:15; Stop 07/15/17 at 20:14; Status DC Sodium Chloride 500 ml @ 30 mls/hr [id number] PRN IV SEE LABEL COMMENTS; Start at 20:15; Stop 07/15/17 at 20:14; Status DC Metoprolol Tartrate (Lopressor) 25 mg [employer] PRN PO SEE LABEL COMMENTS; Start 07/12/17 at 20:15; Stop 07/15/17 at 20:14; Status DC Povidone Iodine (Betadine 5% Antisepsis Kit) 1 applic [employer] PRN EACH NARE SEE LABEL COMMENTS; Start 07/12/17 at 20:15; Stop 07/15/17 at 20:14; Status DC Chlorhexidine Gluconate (Chlorhexidine 2% Cloth) 3 pack [employer] PRN TOPICAL SEE LABEL COMMENTS; Start 07/12/17 at 20:15; Stop 07/15/17 at 20:14; Status DC Bisacodyl (Dulcolax Ec) 10 mg ONCE ONCE PO Last administered on 07/13/17 08: 20; Start 07/13/17 at 08:15; Stop 07/13/17 at 08:16; Status DC Polyethylene Glycol/ Electrolytes (Colyte Liq) 1 ml ONCE ONCE PO ; Start 07/13 at 14:00; Stop 07/13/17 at 14:00; Status DC Polyethylene Glycol/ Electrolytes (Colyte Liq) 4,000 ml ONCE ONCE PO Last administered on 07/13/17 15:40; Start 07/13/17 at 14:00; Stop 07/13/17 at 14 :01; Status DC Polyethylene Glycol (Miralax) 238 gm ONCE ONCE PO Last administered on 12:33; Start 07/14/17 at 10:45; Stop 07/14/17 at 10:49; Status DC Bisacodyl (Dulcolax Ec) 20 mg ONCE ONCE PO Last administered on 07/14/17 12: 33; Start 07/14/17 at 11:00; Stop 07/14/17 at 11:01; Status DC Warfarin Sodium (Coumadin) 4 mg DAILY PO Last administered on 07/16/17 08:23 ; Start 07/15/17 at 09:00 Sodium Chloride 1,000 ml @ 100 mls/hr Q10H IV Last administered on 07/14/17 11:00; Start 07/14/17 at 11:00; Stop 07/14/17 at 20:59; Status DC Sodium Chloride 250 ml @ 15 mls/hr ONCE ONCE IV Last administered on 09:00; Start 07/15/17 at 09:00; Stop 07/16/17 at 01:39; Status DC Acetaminophen (Tylenol) 650 mg Q4H PRN PO SEE LABEL COMMENTS Last administered on 07/15/17 17:08; Start 07/15/17 at 09:00 Diphenhydramine HCl (Benadryl) 25 mg Q4H PRN PO SEE LABEL COMMENTS Last administered on 07/16/17 00:16; Start 07/15/17 at 09:00; Stop 07/16/17 at 00 :16; Status DC Furosemide (Lasix Inj) 20 mg ONCE ONCE IV PUSH Last administered on 21:35; Start 07/15/17 at 09:00; Stop 07/15/17 at 09:01; Status DC Miscellaneous Information ALL NURSING DEPARTME... UNSCH PRN .XX SEE LABEL COMMENTS; Start 07/15/17 at 10:24; Stop 07/16/17 at 10:23; Status DC Morphine Sulfate (*morphine INJ PERIprocedure ONLY) 8 mg STK-MED ONCE .ROUTE Last administered on 07/15/17t 11:22; Start 07/15/17 at 11:22; Stop 07/15/17 at 11:23; Status DC A/P Problem List: (1) Fall ICD Code: W19.XXXA - Unspecified fall, initial encounter (2) Gait instability ICD Code: R26.81 - Unsteadiness on feet (3) Effusion, left knee ICD Code: M25.462 - Effusion, left knee Status: Acute (4) Hematoma of right lower extremity ICD Code: S80.11XA - Contusion of right lower leg, initial encounter Status: Acute (5) A-fib ICD Code: I48.91 - Unspecified atrial fibrillation (6) CHF (congestive heart failure) ICD Code: I50.9 - Heart failure, unspecified (7) DM (diabetes mellitus) ICD Code: E11.9 - Type 2 diabetes mellitus without complications Assessment and Plan In summary this is an 81-year-old male admitted to the hospital after a mechanical fall. He tripped and fell injuring his left knee and right lower extremity. He did not sustain any fractures. He was found to be severely anemic on presentation. His Hemoccult is positive. History of AVM. He has been transfused and there is plan for colonoscopy. Prep for colonoscopy is ongoing. - Fall: s/p mechanical fall at home after tripping on carpet, no LOC or head trauma reported. - Left Knee Effusion: secondary to fall, left knee tenderness to palpation, decreased ROM. Left Knee X-ray w/ small knee joint effusion and prominent soft tissue swelling, images reviewed by me. Analgesics as needed. Patient is deconditioned. Will need SNF to continue rehabilitation efforts. - RLE Hematoma: secondary to fall/injury, Tib-Fib X-ray w/ soft tissue swelling/hematoma, no fracture, images reviewed by me. On Coumadin for A-fib, INR therapeutic at 2.0. Will monitor. - Acute on chronic anemia : Hemoglobin was 7.2 dropped to 6.9 Which may be contributing to the patient frequent fall, appreciate hematology consult who indicated the patient has iron deficiency anemia from chronic GI bleeding. 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 He has been given iron infusion. Patient received PRBC transfusion and hemoglobin improved. GI following HEMOGLOBIN IS NOW 9.1 - Intermittent GI bleeding and history of AVM. GI is following. Plan for colonoscopy per GI --HAD COLONOSCOPY AND EGD ON 07-15 - Gait Instability: secondary to above. Unable to ambulate safely without assistance at this time. Continue PT, will need SNF. Patient is now agreeable. - A-fib: Chronic. On Coumadin. INR therapeutic on presentation, INR trending down to 1.3. Coumadin was held. Given no signs of active bleeding, Resume home dose Coumadin. Follow INR. - CHF: Chronic. Diastolic. Echo 06/09/17 w/ EF 55-60%. However he does have reduced right ventricular systolic function with dilated right ventricle and atrium and increased pulmonary hypertension 60 mmHg, Resume home medications. Monitor I/O. - DM: Sliding scale w/ Accu-Cheks. Resume home Insulin. - DVT Prophylaxis: On Coumadin as above. Anemia transfuse 2 units packed red blood cells 11-24 AM LABS PT AND OT PT INR CELLULITIS OF LEFT KNEE LEG ROCEPHIN Discharge Planning PT AND OT Virgil Shea DO Jul 17, 2017 10:10
--- NOTE | 2017-07-17 11:56 | HHI.GIFU ---
Subjective Remarks Resting in bed in no apparent distress. Tolerating diet. (Kristen Vuong) Objective Vitals I&O Vital Signs Date Time Temp Pulse Resp B/P (MAP) Pulse Ox O2 Delivery O2 Flow Rate FiO2 07/17/17 07:51 96.2 70 17 133/66 (88) 92 07/17/17 07:16 17 07/17/17 00:46 96.9 71 17 126/67 (86) 97 07/16/17 20:12 97.0 70 17 126/66 (86) 97 07/16/17 15:59 97 Room Air 07/16/17 15:59 97.1 70 17 124/64 (84) 98 I/O 07/16/17 07/16/17 07/16/17 07/17/17 07/17/17 07/17/17 07:00 15:00 23:00 07:00 15:00 23:00 Intake Total 900 ml 720 ml 240 ml Output Total 450 ml 500 ml 700 ml Balance 450 ml 720 ml -260 ml -700 ml Intake Oral 480 ml 720 ml 240 ml Packed Cells 400 ml Blood Product IV Normal Saline Flush 20 ml Output Urine Total 450 ml 500 ml 700 ml # Voids 3 # Bowel Movements 0 0 0 Laboratory Laboratory Tests Test 07/17/17 05:00 White Blood Count 5.7 Red Blood Count 3.51 Hemoglobin 9.2 Hematocrit 29.0 Mean Corpuscular Volume 82.5 Mean Corpuscular Hemoglobin 26.3 Mean Corpuscular Hemoglobin Concent 31.9 Red Cell Distribution Width 20.3 Platelet Count 204 Mean Platelet Volume 8.4 Neutrophils (%) (Auto) 77.1 Lymphocytes (%) (Auto) 7.7 Monocytes (%) (Auto) 10.4 Eosinophils (%) (Auto) 3.8 Basophils (%) (Auto) 1.0 Neutrophils # (Auto) 4.4 Lymphocytes # (Auto) 0.4 Monocytes # (Auto) 0.6 Eosinophils # (Auto) 0.2 Basophils # (Auto) 0.1 CBC Comment DIFF FINAL Differential Comment Prothrombin Time 12.7 Prothromb Time International Ratio 1.1 Blood Urea Nitrogen 41 Creatinine 1.40 Random Glucose 151 Total Protein 5.8 Albumin 2.4 Calcium Level 8.6 Phosphorus Level 3.2 Magnesium Level 1.8 Alkaline Phosphatase 45 Aspartate Amino Transf (AST/SGOT) 14 Alanine Aminotransferase (ALT/SGPT) 11 Total Bilirubin 1.1 Sodium Level 138 Potassium Level 3.9 Chloride Level 97 Carbon Dioxide Level 34.2 Anion Gap 7 Estimat Glomerular Filtration Rate 49 Imaging Last Impressions Tibia/Fibula X-Ray 07/10/17 0000 Signed Impressions: Service Date/Time: Monday, July 10, 2017 16:17 - CONCLUSION: Soft tissue swelling/hematoma suspected subcutaneous tissues without obvious fracture. Harley Medellin MD Pelvis X-Ray 07/10/17 0000 Signed Impressions: Service Date/Time: Monday, July 10, 2017 16:27 - CONCLUSION: No definite fractures. Harley Medellin MD Knee X-Ray 07/10/17 0000 Signed Impressions: Service Date/Time: Monday, July 10, 2017 16:22 - CONCLUSION: Small knee joint effusion and prominent soft tissue swelling is seen anterior to the knee. Harley Medellin MD Physical Exam HEENT: Normocephalic; atraumatic; no jaundice. CHEST: CTA CARDIAC: RRR ABDOMEN: Soft, nondistended, nontender; no hepatosplenomegaly; bowel sounds are present in all four quadrants. EXTREMITIES: No clubbing, cyanosis, or edema. SKIN: Normal; no rash; no jaundice. DIRECTOR POST: Awake, alert and oriented x 3. (Kristen Vuong) Assessment and Plan Plan ASSESSMENT: - Severe MARYAM, Hemoccult (+) Stool. Came to ER after a mechanical fall, noted to have severe anemia. S/P evaluation for Hemoccult positive stool. EGD/Colonoscopy (01/26/17)---> Navin LA class a esophagitis noted, diaphragmatic hiatus was present that measured 2 scope diameters, small nodule was located in the gastric antrum, normal duodenal mucosa in the bulb and second portion of the duodenum. Significant amount of stool was present throughout the entire examined colon. There was evidence of a prior ileocolonic surgical anastomosis in the ascending colon. A small flat polyp was found in the ascending colon, multiple biopsies of the lesion were performed , retroflex views revealed no abnormalities, suboptimal bowel prep limited the exam. It is recommended that he have a repeat colonoscopy in 6 months. Capsule endoscopy (05/27/17)---> small bowel angiectasia, possible source of occult bleeding/anemia. The plan was to monitor hemoglobin and consider balloon enteroscopy if significant anemia or GI bleeding. Hematology following. Small bowel enteroscopy 07/15/17-- 1. Esophagitis was found in the antrum 2. 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 AVM ablated using APC. HH 9. today. Patient is s/p 4 transfusions of PRBC (07/12, 07/15, and 07/16). - S/P Mechanical fall, RLE hematoma per attending. - Atrial fibrillation, CHF on Coumadin. INR 1.1 - DM per attending. PLAN: - GI will sign off - Anti-reflux regimen - Avoid NSAIDs - Repeat enteroscopy as needed. Patient seen and examined by Dr. Alicia and myself and this note is written on his behalf. (Kristen Vuong) Physician Comments Seen and examined with [employer]ES [employer], no active bleeding. S/p enteroscopy with ablation. Needs outpt. pill cam, please have fu with gi upon dc. Will sign off. Thank you (Akilah Alicia MD) Kristen Vuong Jul 17, 2017 11:56 Akilah Alicia MD Jul 17, 2017 12:19
[2017-07-17 12:00] VITALS: BP 123/66; PULSE 70; RESP 17; TEMP 98.6; O2SAT 90
[2017-07-17] MEDS: cefTRIAXone INJ 1,000 MG in SODIUM CHLORIDE 0.9% INJ 100 ML IV SCH (12:28)
[2017-07-17 16:00] VITALS: BP 122/57; PULSE 70; RESP 17; TEMP 97.7; O2SAT 94
[2017-07-17] MEDS: FINASTERIDE 5 MG TAB PO SCH (20:02)
[2017-07-17] MEDS: CHOLECALCIFEROL (VIT D3) 5000 UNIT CAP PO SCH (20:02)
[2017-07-17] MEDS: AMITRIPTYLINE HCL 50 MG TAB PO SCH (20:04)
[2017-07-17] MEDS: traZODone HCL 50 MG TAB PO SCH (20:04)
[2017-07-17] MEDS: INSULIN DETEMIR 100 UNITS/ML VIAL SQ SCH (20:05)
[2017-07-17 20:10] VITALS: BP 102/51; PULSE 70; RESP 16; TEMP 97; O2SAT 95
[2017-07-18 00:21] VITALS: BP 98/54; PULSE 72; RESP 16; TEMP 97.2; O2SAT 95
[2017-07-18] MEDS: LORazepam 2 MG TAB PO PRN ×3 (00:36→16:20)
[2017-07-18] MEDS: ACETAMINOPHEN/HYDROcodone 325 MG/5 MG TAB PO PRN ×3 (00:36→20:35)
[2017-07-18 04:05] VITALS: BP 107/53; PULSE 73; RESP 16; TEMP 96.9; O2SAT 95
[2017-07-18 07:23] LABS: AUTOMATED NEUTROPHIL # 4.1 TH/MM3 (1.8-7.7); BASOPHIL # 0.1 TH/MM3 (0-0.2); BASOPHIL % 1.7 % (0.0-2.0); EOSINOPHIL # 0.3 TH/MM3 (0-0.4); EOSINOPHIL % 5.1 % (0.0-4.0); HEMATOCRIT 27.8 % (39.0-51.0); HEMO FLAGS DIFF FINAL; LYMPH % 6.1 % (9.0-44.0); LYMPHOCYTE # 0.3 TH/MM3 (1.0-4.8); MEAN CELL VOLUME 83.7 FL (80.0-100.0); MEAN CORPUSCULAR HEMOGLOBIN 26.9 PG (27.0-34.0); MEAN CORPUSCULAR HGB CONC 32.1 % (32.0-36.0); MONO % 9.6 % (0.0-8.0); NEUT % 77.5 % (16.0-70.0); PLATELET COUNT 214 TH/MM3 (150-450); RED BLOOD COUNT 3.33 MIL/MM3 (4.50-5.90); RED CELL DISTRIBUTION WIDTH 20.7 % (11.6-17.2); WHITE BLOOD COUNT 5.3 TH/MM3 (4.0-11.0)
[2017-07-18 07:31] LABS: ANION GAP 6 MEQ/L (5-15); AST (GOT) 13 U/L (15-37); BICARBONATE 35.3 MEQ/L (21.0-32.0); BLOOD UREA NITROGEN 52 MG/DL (7-18); CHLORIDE 98 MEQ/L (98-107); GLOMERULAR FILTRATION RATE 39 ML/MIN (>89); MAGNESIUM 1.9 MG/DL (1.5-2.5); POTASSIUM 4.2 MEQ/L (3.5-5.1); SODIUM (NA) 139 MEQ/L (136-145)
[2017-07-18 07:45] LABS: ALKALINE PHOSPHATASE 45 U/L (45-117); ALT (GPT) 10 U/L (12-78); TOTAL BILIRUBIN ADULT 0.9 MG/DL (0.2-1.0)
[2017-07-18 08:00] VITALS: BP 96/50; PULSE 70; RESP 17; TEMP 98.5; O2SAT 93
[2017-07-18] MEDS: INSULIN ASPART SUPPLEMENTAL SCALE SQ SCH ×4 (08:00→20:36)
[2017-07-18] MEDS: ATORVASTATIN 40 MG TAB PO SCH (08:12)
[2017-07-18] MEDS: LISINOPRIL 20 MG TAB PO SCH (08:12)
[2017-07-18] MEDS: NEBIVOLOL 10 MG TAB PO SCH ×2 (08:12→20:35)
[2017-07-18] MEDS: FERROUS SULFATE 325 MG (65 MG ELEMENTAL IRON) TAB PO SCH ×2 (08:12→20:36)
[2017-07-18] MEDS: DIGOXIN 0.125 MG TAB PO SCH (08:12)
[2017-07-18] MEDS: CYANOCOBALAMIN 100 MCG TAB PO SCH (08:12)
[2017-07-18] MEDS: ASCORBIC ACID 500 MG TAB PO SCH ×2 (08:13→20:35)
[2017-07-18] MEDS: GABAPENTIN 300 MG CAP PO SCH ×3 (08:13→18:15)
[2017-07-18] MEDS: WARFARIN SOD 4 MG TAB PO SCH (08:13)
[2017-07-18] MEDS: TORSEMIDE 20 MG TAB PO SCH ×2 (08:13→20:34)
[2017-07-18] MEDS: PANTOPRAZOLE SOD 40 MG DELAYED RELEASE TAB PO SCH ×2 (08:13→20:34)
[2017-07-18] MEDS: SODIUM CHLORIDE 0.9% FLUSH 10 ML FLUSH IV FLUSH SCH ×2 (08:19→20:33)
[2017-07-18] MEDS: DOCUSATE SODIUM 50 MG/SENNA 8.6 MG TAB PO SCH ×2 (08:19→20:34)
--- NOTE | 2017-07-18 08:30 | HHI.PR ---
Subjective Remarks This is a pleasant 81 y/o Male status post Colonoscopy and EGD and had cautery of AVM in Stomach status post blood transfusion, Hemoglobin stable, found yesterday with Cellulitis of the left knee, started on antibiotics, seen in his bedroom, patient anxious to leave the hospital, I want to get recommendations by ID specialist about this case, he continue with warm Left knee he states he had surgery on this Knee 10 years ago he has Prosthetic material on this knee. Objective Vital Signs Date Time Temp Pulse Resp B/P (MAP) Pulse Ox O2 Delivery O2 Flow Rate FiO2 07/18/17 04:05 96.9 73 16 107/53 (71) 95 07/18/17 00:21 97.2 72 16 98/54 (69) 95 07/17/17 20:10 97.0 70 16 102/51 (68) 95 07/17/17 19:48 95 Nasal Cannula 3.00 07/17/17 16:00 97.7 70 17 122/57 (78) 94 07/17/17 13:28 16 07/17/17 12:00 98.6 70 17 123/66 (85) 90 I/O 07/17/17 07/17/17 07/17/17 07/18/17 07/18/17 07/18/17 07:00 15:00 23:00 07:00 15:00 23:00 Intake Total 550 ml 480 ml 240 ml Output Total 700 ml 300 ml Balance -700 ml 550 ml 480 ml -60 ml Intake Oral 450 ml 480 ml 240 ml IV Total 100 ml Output Urine Total 700 ml 300 ml # Voids 4 # Bowel Movements 0 1 0 Result Diagram: 07/18/17 0642 07/18/17 0642 Imaging Last Impressions Tibia/Fibula X-Ray 07/10/17 0000 Signed Impressions: Service Date/Time: Monday, July 10, 2017 16:17 - CONCLUSION: Soft tissue swelling/hematoma suspected subcutaneous tissues without obvious fracture. Harley Medellin MD Pelvis X-Ray 07/10/17 0000 Signed Impressions: Service Date/Time: Monday, July 10, 2017 16:27 - CONCLUSION: No definite fractures. Harley Medellin MD Knee X-Ray 07/10/17 0000 Signed Impressions: Service Date/Time: Monday, July 10, 2017 16:22 - CONCLUSION: Small knee joint effusion and prominent soft tissue swelling is seen anterior to the knee. Harley Medellin MD Procedures Colonoscopy with Polypectomy, cecum polyp found Ileocolonic anastomosis, Internal hemorrhoids, External Hemorrhoids for new Colonoscopy in one year and yearly Hemoccult. 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 recommended for anti-reflux regimen and avoid NSAIDs. Other Results Laboratory Tests Test 07/11/17 13:50 07/11/17 14:30 07/16/17 06:12 07/17/17 05:00 Iron Level 62 MCG/DL Total Iron Binding Capacity 358 MCG/DL Percent Iron Saturation 17.3 % Transferrin 256 MG/DL Ferritin 48 NG/ML Digoxin Level 1.2 NG/ML Total Creatine Kinase 25 U/L Hemoglobin A1c 6.4 % Protein Corrected Calcium 7.6 MG/DL Free Thyroxine 1.26 NG/DL Thyroid Stimulating Hormone 3rd Gen 6.720 uIU/ML Prothrombin Time 12.7 SEC Prothromb Time International Ratio 1.1 RATIO Test 07/18/17 06:42 White Blood Count 5.3 TH/MM3 Red Blood Count 3.33 MIL/MM3 Hemoglobin 8.9 GM/DL Hematocrit 27.8 % Mean Corpuscular Volume 83.7 FL Mean Corpuscular Hemoglobin 26.9 PG Mean Corpuscular Hemoglobin Concent 32.1 % Red Cell Distribution Width 20.7 % Platelet Count 214 TH/MM3 Mean Platelet Volume 8.7 FL Neutrophils (%) (Auto) 77.5 % Lymphocytes (%) (Auto) 6.1 % Monocytes (%) (Auto) 9.6 % Eosinophils (%) (Auto) 5.1 % Basophils (%) (Auto) 1.7 % Neutrophils # (Auto) 4.1 TH/MM3 Lymphocytes # (Auto) 0.3 TH/MM3 Monocytes # (Auto) 0.5 TH/MM3 Eosinophils # (Auto) 0.3 TH/MM3 Basophils # (Auto) 0.1 TH/MM3 CBC Comment DIFF FINAL Differential Comment Blood Urea Nitrogen 52 MG/DL Creatinine 1.69 MG/DL Random Glucose 116 MG/DL Total Protein 5.5 GM/DL Albumin 2.2 GM/DL Calcium Level 8.3 MG/DL Phosphorus Level 3.1 MG/DL Magnesium Level 1.9 MG/DL Alkaline Phosphatase 45 U/L Aspartate Amino Transf (AST/SGOT) 13 U/L Alanine Aminotransferase (ALT/SGPT) 10 U/L Total Bilirubin 0.9 MG/DL Sodium Level 139 MEQ/L Potassium Level 4.2 MEQ/L Chloride Level 98 MEQ/L Carbon Dioxide Level 35.3 MEQ/L Anion Gap 6 MEQ/L Estimat Glomerular Filtration Rate 39 ML/MIN Objective Remarks GENERAL: Obese patient in now acute distress. SKIN: Ecchymosis of bilateral upper extremities. HEAD: Atraumatic. Normocephalic. EYES: Pupils equal and round. No scleral icterus. No injection or drainage. EOMI ENT: No nasal bleeding or discharge. Mucous membranes pink and moist. TONGUE MIDLINE NECK: Trachea midline. No JVD. SUPPLE CARDIOVASCULAR: Regular rate and rhythm. S1 and S2 no S3 or S4 no heave or thrill or rub or gallop RESPIRATORY: No accessory muscle use. Clear to auscultation. Breath sounds equal bilaterally. GASTROINTESTINAL: Abdomen soft, non-tender, nondistended. Hepatic and splenic margins not palpable. MUSCULOSKELETAL: Left knee with edema no erythema. NEUROLOGICAL: Awake and alert. No obvious cranial nerve deficits. Motor grossly within normal limits. 4 out of 5 muscle strength in the arms and legs. Normal speech. PSYCHIATRIC: Appropriate mood and affect; insight and judgment normal. Medications and IVs Current Medications Medications (Trade) Dose Ordered Sig/Faviola Route Start Time Stop Time Status Last Admin (NS Flush) 2 ml UNSCH PRN IV FLUSH 07/10/17 19:45 07/12/17 05:43 (NS Flush) 2 ml BID IV FLUSH 07/10/17 21:00 07/18/17 08:19 (Zofran Inj) 4 mg Q6H PRN IVP 07/10/17 19:45 (Tylenol) 650 mg Q6H PRN PO 07/10/17 19:45 07/16/17 00:16 ([place] 5-325 Mg) 1 tab Q4H PRN PO 07/10/17 19:45 07/18/17 08:14 (Morphine Inj) 2 mg Q3H PRN IV PUSH 07/10/17 19:45 07/13/17 02:53 (Helene-Colace) 1 tab BID PO 07/10/17 21:00 07/17/17 20:03 (Milk Of Magnesia Liq) 30 ml Q12H PRN PO 07/10/17 19:45 07/17/17 20:03 (Senokot) 17.2 mg Q12H PRN PO 07/10/17 19:45 07/16/17 08:22 (Dulcolax Supp) 10 mg DAILY PRN RECTAL 07/10/17 19:45 07/13/17 02:29 (Lactulose Liq) 30 ml DAILY PRN PO 07/10/17 19:45 (Elavil) 50 mg HS PO 07/10/17 21:00 07/17/17 20:04 (Lipitor) 40 mg DAILY PO 07/11/17 09:00 07/18/17 08:12 (Vitamin D3) 5,000 units HS PO 07/10/17 21:00 07/17/17 20:02 (Vitamin B12) 100 mcg DAILY PO 07/11/17 09:00 07/18/17 08:12 (Lanoxin) 0.125 mg DAILY PO 07/11/17 09:00 07/18/17 08:12 (Proscar) 5 mg HS PO 07/10/17 21:00 07/17/17 20:02 (Neurontin) 300 mg TID PO 07/11/17 09:00 07/18/17 08:13 (Levemir Inj) 15 units HS SQ 07/10/17 21:00 07/17/17 20:05 (Duoneb Neb) 1 ampule Q4HR NEB PRN NEB 07/10/17 20:15 (Prinivil) 20 mg DAILY PO 07/11/17 09:00 07/18/17 08:12 (Ativan) 2 mg Q6H PRN PO 07/10/17 20:15 07/18/17 08:14 (Bystolic) 10 mg BID PO 07/10/17 21:00 07/18/17 08:12 (Demadex) 40 mg BID PO 07/10/17 21:00 07/18/17 08:13 (Desyrel) 50 mg HS PO 07/10/17 21:00 07/17/17 20:04 Patient Own Medication PT OWN MED: (Acarb... DAILY@1700 PO 07/11/17 17:00 Future Hold Patient Own Medication PT OWN MED: (Acarb... DAILY@0800 PO 07/11/17 08:00 Future Hold Patient Own Medication PT OWN MED: (Clobeta... BID PRN TOPICAL 07/10/17 20:30 Future Hold (Protonix) 40 mg BID PO 07/10/17 21:00 07/18/17 08:13 (Ferrous Sulfate) 325 mg BID PO 07/11/17 09:00 07/18/17 08:12 (Vitamin C) 250 mg BID PO 07/11/17 09:00 07/18/17 08:13 (Pill Splitter) 1 ea UNSCH PRN OTHER 07/11/17 09:00 07/12/17 08:48 (NovoLOG SUPPLEMENTAL SCALE) 1 ACHS SLIDING SCALE SQ 07/11/17 17:00 07/17/17 20:05 (D50w (Vial) Inj) 50 ml UNSCH PRN IV PUSH 07/12/17 09:30 (Glucagon Inj) 1 mg UNSCH PRN OTHER 07/12/17 09:30 (Coumadin) 4 mg DAILY PO 07/15/17 09:00 07/18/17 08:13 (Tylenol) 650 mg Q4H PRN PO 07/15/17 09:00 07/15/17 17:08 Ceftriaxone Sodium 1000 mg/ Sodium Chloride 100 ml @ 200 mls/hr Q24H IV 07/17/17 11:00 07/17/17 12:28 A/P Assessment and Plan In summary this is an 81-year-old male admitted to the hospital after a mechanical fall. He tripped and fell injuring his left knee and right lower extremity. He did not sustain any fractures. He was found to be severely anemic on presentation. His Hemoccult is positive. History of AVM. He has been transfused and there is plan for colonoscopy. Prep for colonoscopy is ongoing. - Fall: s/p mechanical fall at home after tripping on carpet, no LOC or head trauma reported. - Left Knee Effusion: secondary to fall, left knee tenderness to palpation, decreased ROM. Left Knee X-ray w/ small knee joint effusion and prominent soft tissue swelling, images reviewed by me. Analgesics as needed. Patient is deconditioned. will be discharged to SNF to continue rehab, at this time receiving management for left knee cellulitis, I like to have recommendations by ID specialist he had an arthroplasty 10 years ago. - RLE Hematoma: secondary to fall/injury, Tib-Fib X-ray w/ soft tissue swelling/hematoma, no fracture. - Iron Deficiency anemia followed by customer advisor specialist, states due to bleeding, status post multiple scopes, and pill endoscopy, known to Hematology outpatient clinic with history of multiple blood transfusions, GI following status psot small bowel enteroscopy, with AVM ablation on 07/15, signed off the case, RLE hematoma, on Coumadin for Atrial fibrillation, recommended discharge to Rehab from Hematology standpoint. continue Iron IV. - Intermittent GI bleeding and history of AVM. GI is following. Plan for colonoscopy per GI --HAD COLONOSCOPY AND EGD ON 07-15 - Gait Instability: secondary to above. Unable to ambulate safely without assistance at this time. Continue PT, will need SNF. Patient is now agreeable. - A-fib: Chronic. On Coumadin. INR therapeutic on presentation, INR trending down to 1.2 Coumadin was held. Given no signs of active bleeding, Resume home dose Coumadin. - CHF: Chronic. Diastolic. Echo 06/09/17 w/ EF 55-60%. However he does have reduced right ventricular systolic function with dilated right ventricle and atrium and increased pulmonary hypertension 60 mmHg, Resume home medications. Monitor I/O. - DM: Sliding scale w/ Accu-Cheks. Resume home Insulin. - DVT Prophylaxis: On Coumadin as above. I had the pleasure to talk about this case with Doctor Brielle Mike Infectious disease specialist she will see the patient later and let me know her thinking about this case Appreciated. Discharge Planning To SNF once cleared by ID specialist William Weinstein MD Jul 18, 2017 08:30
[2017-07-18] MEDS: cefTRIAXone INJ 1,000 MG in SODIUM CHLORIDE 0.9% INJ 100 ML IV SCH (11:00)
[2017-07-18 12:00] VITALS: BP 103/57; PULSE 95; RESP 18; TEMP 96.8; O2SAT 93
--- NOTE | 2017-07-18 12:54 | PD.ONC.PN ---
Subjective Subjective Remarks Afebrile overnight. Patient resting in chair next to bed in nad. No overnight events. Objective Data Date Time Temp Pulse Resp B/P (MAP) Pulse Ox O2 Delivery O2 Flow Rate FiO2 07/18/17 08:21 Nasal Cannula 3.00 07/18/17 08:00 98.5 70 17 96/50 (65) 93 07/18/17 04:05 96.9 73 16 107/53 (71) 95 07/18/17 00:21 97.2 72 16 98/54 (69) 95 07/17/17 20:10 97.0 70 16 102/51 (68) 95 07/17/17 19:48 95 Nasal Cannula 3.00 07/17/17 16:00 97.7 70 17 122/57 (78) 94 07/17/17 13:28 16 07/18/17 07/18/17 07/18/17 06:59 14:59 22:59 Intake Total 240 ml Output Total 300 ml Balance -60 ml Result Diagram: 07/18/1742 07/18/1742 Laboratory Results Laboratory Tests Test 07/18/17 06:42 White Blood Count 5.3 TH/MM3 Red Blood Count 3.33 MIL/MM3 Hemoglobin 8.9 GM/DL Hematocrit 27.8 % Mean Corpuscular Volume 83.7 FL Mean Corpuscular Hemoglobin 26.9 PG Mean Corpuscular Hemoglobin Concent 32.1 % Red Cell Distribution Width 20.7 % Platelet Count 214 TH/MM3 Mean Platelet Volume 8.7 FL Neutrophils (%) (Auto) 77.5 % Lymphocytes (%) (Auto) 6.1 % Monocytes (%) (Auto) 9.6 % Eosinophils (%) (Auto) 5.1 % Basophils (%) (Auto) 1.7 % Neutrophils # (Auto) 4.1 TH/MM3 Lymphocytes # (Auto) 0.3 TH/MM3 Monocytes # (Auto) 0.5 TH/MM3 Eosinophils # (Auto) 0.3 TH/MM3 Basophils # (Auto) 0.1 TH/MM3 CBC Comment DIFF FINAL Differential Comment Blood Urea Nitrogen 52 MG/DL Creatinine 1.69 MG/DL Random Glucose 116 MG/DL Total Protein 5.5 GM/DL Albumin 2.2 GM/DL Calcium Level 8.3 MG/DL Phosphorus Level 3.1 MG/DL Magnesium Level 1.9 MG/DL Alkaline Phosphatase 45 U/L Aspartate Amino Transf (AST/SGOT) 13 U/L Alanine Aminotransferase (ALT/SGPT) 10 U/L Total Bilirubin 0.9 MG/DL Sodium Level 139 MEQ/L Potassium Level 4.2 MEQ/L Chloride Level 98 MEQ/L Carbon Dioxide Level 35.3 MEQ/L Anion Gap 6 MEQ/L Estimat Glomerular Filtration Rate 39 ML/MIN Administered Medications Medications (Trade) Dose Ordered Sig/Faviola Route PRN Reason Start Time Stop Time Status Last Admin Dose Admin Sodium Chloride (NS Flush) 2 ml UNSCH PRN IV FLUSH FLUSH AFTER USING IV ACCESS 07/10/17 19:45 07/12/17 05:43 Sodium Chloride (NS Flush) 2 ml BID IV FLUSH 07/10/17 21:00 07/18/17 08:19 Acetaminophen (Tylenol) 650 mg Q6H PRN PO FEVER/PAIN SCALE 1 TO 2 07/10/17 19:45 07/16/17 00:16 Acetaminophen/ Hydrocodone Bitart ([place] 5-325 Mg) 1 tab Q4H PRN PO PAIN SCALE 3 TO 5 07/10/17 19:45 07/18/17 08:14 Morphine Sulfate (Morphine Inj) 2 mg Q3H PRN IV PUSH Pain 6-10 07/10/17 19:45 07/13/17 02:53 Senna/Docusate Sodium (Helene-Colace) 1 tab BID PO 07/10/17 21:00 07/17/17 20:03 Magnesium Hydroxide (Milk Of Magnuriah Liq) 30 ml Q12H PRN PO Mild constipation 07/10/17 19:45 07/17/17 20:03 Sennosides (Senokot) 17.2 mg Q12H PRN PO Moderate constipation 07/10/17 19:45 07/16/17 08:22 Bisacodyl (Dulcolax Supp) 10 mg DAILY PRN RECTAL SEVERE CONSITIPATION 07/10/17 19:45 07/13/17 02:29 Amitriptyline HCl (Elavil) 50 mg HS PO 07/10/17 21:00 07/17/17 20:04 Atorvastatin Calcium (Lipitor) 40 mg DAILY PO 07/11/17 09:00 07/18/17 08:12 Cholecalciferol (Vitamin D3) 5,000 units HS PO 07/10/17 21:00 07/17/17 20:02 Cyanocobalamin (Vitamin B12) 100 mcg DAILY PO 07/11/17 09:00 07/18/17 08:12 Digoxin (Lanoxin) 0.125 mg DAILY PO 07/11/17 09:00 07/18/17 08:12 Finasteride (Proscar) 5 mg HS PO 07/10/17 21:00 07/17/17 20:02 Gabapentin (Neurontin) 300 mg TID PO 07/11/17 09:00 07/18/17 12:11 Insulin Detemir (Levemir Inj) 15 units HS SQ 07/10/17 21:00 07/17/17 20:05 Lisinopril (Prinivil) 20 mg DAILY PO 07/11/17 09:00 07/18/17 08:12 Lorazepam (Ativan) 2 mg Q6H PRN PO ANXIETY 07/10/17 20:15 07/18/17 08:14 Nebivolol (Bystolic) 10 mg BID PO 07/10/17 21:00 07/18/17 08:12 Torsemide (Demadex) 40 mg BID PO 07/10/17 21:00 07/18/17 08:13 Trazodone HCl (Desyrel) 50 mg HS PO 07/10/17 21:00 07/17/17 20:04 Pantoprazole Sodium (Protonix) 40 mg BID PO 07/10/17 21:00 07/18/17 08:13 Ferrous Sulfate (Ferrous Sulfate) 325 mg BID PO 07/11/17 09:00 07/18/17 08:12 Ascorbic Acid (Vitamin C) 250 mg BID PO 07/11/17 09:00 07/18/17 08:13 Miscellaneous (Pill Splitter) 1 ea UNSCH PRN OTHER SEE LABEL COMMENTS 07/11/17 09:00 07/12/17 08:48 Insulin Aspart (NovoLOG SUPPLEMENTAL SCALE) 1 ACHS SLIDING SCALE SQ 07/11/17 17:00 07/18/17 12:11 Warfarin Sodium (Coumadin) 4 mg DAILY PO 07/15/17 09:00 07/18/17 08:13 Acetaminophen (Tylenol) 650 mg Q4H PRN PO SEE LABEL COMMENTS 07/15/17 09:00 07/15/17 17:08 Ceftriaxone Sodium 1000 mg/ Sodium Chloride 100 ml @ 200 mls/hr Q24H IV 07/17/17 11:00 07/18/17 11:00 Objective Remarks GENERAL: Elderly male sitting up in chair next to bed in nad. SKIN: Warm and dry. HEAD: Normocephalic. EYES: No injection or drainage. NECK: Supple, trachea midline. CARDIOVASCULAR: +S1/S1 RESPIRATORY: anterior bullock clear. GASTROINTESTINAL: Abdomen soft, non-tender, nondistended. EXTREMITIES: No cyanosis NEUROLOGICAL: No obvious focal deficit. Awake, alert, and oriented x3. Assessment/Plan Problem List: (1) Iron deficiency anemia ICD Codes: D50.9 - Iron deficiency anemia, unspecified Plan: 07/18/17: Monitor CBC. once discharged follow up in clinic. -- MARYAM due to GI bleeding -- has had multiple scopes outpatient as well as pill endoscopy -- Well known to our outpatient clinic for frequent iron, PRBC transfusions. -- GI following, s/p small bowel enteroscopy with AVM ablation on 07/15. GI signed off. Assessment 81-year-old male with history of iron deficiency anemia admitted for fall ++RLE hematoma ++on Coumadin for atrial fibrillation. Attending Statement The exam, history, and the medical decision-making described in the above note were completed with the assistance of the mid-level provider. I reviewed and agree with the findings presented. I attest that I had a [id number] encounter with the patient on the same day, and personally performed and documented my assessment and findings in the medical record. c/o left knee pain wants to know when he can go home. ID has been consulted for RLE wound. Venofer IV today. Ok to d/c to rehab from my standpoint. Lelia Bernabe Jul 18, 2017 12:54 Michele Garcia MD Jul 18, 2017 18:55
[2017-07-18 16:00] VITALS: BP 100/52; PULSE 70; RESP 18; TEMP 96.1; O2SAT 98
[2017-07-18 16:10] LABS: INTERNATIONAL NORMALIZED RATIO 1.1 RATIO; PROTHROMBIN TIME - PATIENT 12.7 SEC (9.8-11.6)
[2017-07-18 19:00] VITALS: BP 110/58; PULSE 70; RESP 16; TEMP 97.1; O2SAT 98
[2017-07-18] MEDS ORDERED: IRON SUCROSE 100 MG/5 ML VIAL IV PUSH ONE (19:00)
[2017-07-18] MEDS ORDERED: SODIUM CHLOR 0.9% IV ONE (19:15)
[2017-07-18] MEDS ORDERED: IRON SUCROSE IV ONE (19:15)
[2017-07-18] MEDS: traZODone HCL 50 MG TAB PO SCH (20:34)
[2017-07-18] MEDS: AMITRIPTYLINE HCL 50 MG TAB PO SCH (20:34)
[2017-07-18] MEDS: CHOLECALCIFEROL (VIT D3) 5000 UNIT CAP PO SCH (20:34)
[2017-07-18] MEDS: FINASTERIDE 5 MG TAB PO SCH (20:35)
[2017-07-18] MEDS: INSULIN DETEMIR 100 UNITS/ML VIAL SQ SCH (20:36)
[2017-07-19] VITALS: BP 113/59; PULSE 78; RESP 16; TEMP 98.1; O2SAT 95
[2017-07-19 07:38] LABS: AUTOMATED NEUTROPHIL # 3.8 TH/MM3 (1.8-7.7); BASOPHIL # 0.1 TH/MM3 (0-0.2); BASOPHIL % 1.4 % (0.0-2.0); EOSINOPHIL # 0.3 TH/MM3 (0-0.4); EOSINOPHIL % 5.3 % (0.0-4.0); HEMATOCRIT 28.7 % (39.0-51.0); HEMO FLAGS DIFF FINAL; LYMPH % 7.2 % (9.0-44.0); LYMPHOCYTE # 0.4 TH/MM3 (1.0-4.8); MEAN CELL VOLUME 84.2 FL (80.0-100.0); MEAN CORPUSCULAR HEMOGLOBIN 26.8 PG (27.0-34.0); MEAN CORPUSCULAR HGB CONC 31.8 % (32.0-36.0); MONO % 11.1 % (0.0-8.0); PLATELET COUNT 229 TH/MM3 (150-450); RED BLOOD COUNT 3.41 MIL/MM3 (4.50-5.90); RED CELL DISTRIBUTION WIDTH 20.9 % (11.6-17.2); WHITE BLOOD COUNT 5.1 TH/MM3 (4.0-11.0)
[2017-07-19 07:42] LABS: INTERNATIONAL NORMALIZED RATIO 1.2 RATIO; PROTHROMBIN TIME - PATIENT 13.3 SEC (9.8-11.6)
[2017-07-19 08:00] VITALS: BP 104/56; PULSE 70; RESP 17; TEMP 97.9; O2SAT 94
[2017-07-19] MEDS: INSULIN ASPART SUPPLEMENTAL SCALE SQ SCH ×4 (08:00→21:59)
[2017-07-19] MEDS: WARFARIN SOD 4 MG TAB PO SCH (08:14)
[2017-07-19] MEDS: FERROUS SULFATE 325 MG (65 MG ELEMENTAL IRON) TAB PO SCH ×2 (08:14→22:00)
[2017-07-19] MEDS: CYANOCOBALAMIN 100 MCG TAB PO SCH (08:14)
[2017-07-19] MEDS: GABAPENTIN 300 MG CAP PO SCH ×3 (08:15→17:59)
[2017-07-19] MEDS: DOCUSATE SODIUM 50 MG/SENNA 8.6 MG TAB PO SCH ×2 (08:15→22:00)
[2017-07-19] MEDS: ASCORBIC ACID 500 MG TAB PO SCH ×2 (08:15→21:59)
[2017-07-19] MEDS: ATORVASTATIN 40 MG TAB PO SCH (08:15)
[2017-07-19] MEDS: PANTOPRAZOLE SOD 40 MG DELAYED RELEASE TAB PO SCH ×2 (08:15→21:59)
[2017-07-19] MEDS: LORazepam 2 MG TAB PO PRN ×2 (08:15→17:58)
[2017-07-19] MEDS: DIGOXIN 0.125 MG TAB PO SCH (08:16)
[2017-07-19] MEDS: TORSEMIDE 20 MG TAB PO SCH ×2 (08:16→21:59)
[2017-07-19] MEDS: NEBIVOLOL 10 MG TAB PO SCH ×2 (08:16→21:59)
[2017-07-19] MEDS: LISINOPRIL 20 MG TAB PO SCH (08:16)
[2017-07-19] MEDS: SODIUM CHLORIDE 0.9% FLUSH 10 ML FLUSH IV FLUSH SCH ×2 (08:17→22:00)
[2017-07-19] MEDS: ACETAMINOPHEN/HYDROcodone 325 MG/5 MG TAB PO PRN ×4 (08:17→22:00)
--- NOTE | 2017-07-19 11:10 | PD.ONC.PN ---
Subjective Subjective Remarks Afebrile overnight. Patient resting in room. Hoping to go to rehab soon. complaining of pain in left wren/leg. States right leg continues to be painful as well. Objective Data Date Time Temp Pulse Resp B/P (MAP) Pulse Ox O2 Delivery O2 Flow Rate FiO2 07/19/17 09:17 17 07/19/17 08:00 97.9 70 17 104/56 (72) 94 07/19/17 00:00 98.1 78 16 113/59 (77) 95 07/18/17 23:59 Nasal Cannula 3.00 07/18/17 19:00 97.1 70 16 110/58 (75) 98 07/18/17 16:00 96.1 70 18 100/52 (68) 98 07/18/17 12:00 96.8 95 18 103/57 (72) 93 07/19/17 07/19/17 07/19/17 07:00 15:00 23:00 Intake Total 960 ml Output Total 650 ml Balance 310 ml Result Diagram: 07/19/17 0706 07/18/17 0642 Laboratory Results Laboratory Tests Test 07/18/17 15:22 07/19/17 07:06 Prothrombin Time 12.7 SEC 13.3 SEC Prothromb Time International Ratio 1.1 RATIO 1.2 RATIO White Blood Count 5.1 TH/MM3 Red Blood Count 3.41 MIL/MM3 Hemoglobin 9.1 GM/DL Hematocrit 28.7 % Mean Corpuscular Volume 84.2 FL Mean Corpuscular Hemoglobin 26.8 PG Mean Corpuscular Hemoglobin Concent 31.8 % Red Cell Distribution Width 20.9 % Platelet Count 229 TH/MM3 Mean Platelet Volume 8.6 FL Neutrophils (%) (Auto) 75.0 % Lymphocytes (%) (Auto) 7.2 % Monocytes (%) (Auto) 11.1 % Eosinophils (%) (Auto) 5.3 % Basophils (%) (Auto) 1.4 % Neutrophils # (Auto) 3.8 TH/MM3 Lymphocytes # (Auto) 0.4 TH/MM3 Monocytes # (Auto) 0.6 TH/MM3 Eosinophils # (Auto) 0.3 TH/MM3 Basophils # (Auto) 0.1 TH/MM3 CBC Comment DIFF FINAL Differential Comment Administered Medications Medications (Trade) Dose Ordered Sig/Faviola Route PRN Reason Start Time Stop Time Status Last Admin Dose Admin Sodium Chloride (NS Flush) 2 ml UNSCH PRN IV FLUSH FLUSH AFTER USING IV ACCESS 07/10/17 19:45 07/12/17 05:43 Sodium Chloride (NS Flush) 2 ml BID IV FLUSH 07/10/17 21:00 07/19/17 08:17 Acetaminophen (Tylenol) 650 mg Q6H PRN PO FEVER/PAIN SCALE 1 TO 2 07/10/17 19:45 07/16/17 00:16 Acetaminophen/ Hydrocodone Bitart ([place] 5-325 Mg) 1 tab Q4H PRN PO PAIN SCALE 3 TO 5 07/10/17 19:45 07/19/17 08:17 Morphine Sulfate (Morphine Inj) 2 mg Q3H PRN IV PUSH Pain 6-10 07/10/17 19:45 07/13/17 02:53 Senna/Docusate Sodium (Helene-Colace) 1 tab BID PO 07/10/17 21:00 07/19/17 08:15 Magnesium Hydroxide (Milk Of Antonio Gordon) 30 ml Q12H PRN PO Mild constipation 07/10/17 19:45 07/17/17 20:03 Sennosides (Senokot) 17.2 mg Q12H PRN PO Moderate constipation 07/10/17 19:45 07/16/17 08:22 Bisacodyl (Dulcolax Supp) 10 mg DAILY PRN RECTAL SEVERE CONSITIPATION 07/10/17 19:45 07/13/17 02:29 Amitriptyline HCl (Elavil) 50 mg HS PO 07/10/17 21:00 07/18/17 20:34 Atorvastatin Calcium (Lipitor) 40 mg DAILY PO 07/11/17 09:00 07/19/17 08:15 Cholecalciferol (Vitamin D3) 5,000 units HS PO 07/10/17 21:00 07/18/17 20:34 Cyanocobalamin (Vitamin B12) 100 mcg DAILY PO 07/11/17 09:00 07/19/17 08:14 Digoxin (Lanoxin) 0.125 mg DAILY PO 07/11/17 09:00 07/19/17 08:16 Finasteride (Proscar) 5 mg HS PO 07/10/17 21:00 07/18/17 20:35 Gabapentin (Neurontin) 300 mg TID PO 07/11/17 09:00 07/19/17 08:15 Insulin Detemir (Levemir Inj) 15 units HS SQ 07/10/17 21:00 07/18/17 20:36 Lisinopril (Prinivil) 20 mg DAILY PO 07/11/17 09:00 07/18/17 08:12 Lorazepam (Ativan) 2 mg Q6H PRN PO ANXIETY 07/10/17 20:15 07/19/17 08:15 Nebivolol (Bystolic) 10 mg BID PO 07/10/17 21:00 07/18/17 20:35 Torsemide (Demadex) 40 mg BID PO 07/10/17 21:00 07/18/17 20:34 Trazodone HCl (Desyrel) 50 mg HS PO 07/10/17 21:00 07/18/17 20:34 Pantoprazole Sodium (Protonix) 40 mg BID PO 07/10/17 21:00 07/19/17 08:15 Ferrous Sulfate (Ferrous Sulfate) 325 mg BID PO 07/11/17 09:00 07/19/17 08:14 Ascorbic Acid (Vitamin C) 250 mg BID PO 07/11/17 09:00 07/19/17 08:15 Miscellaneous (Pill Splitter) 1 ea UNSCH PRN OTHER SEE LABEL COMMENTS 07/11/17 09:00 07/12/17 08:48 Insulin Aspart (NovoLOG SUPPLEMENTAL SCALE) 1 ACHS SLIDING SCALE SQ 07/11/17 17:00 07/18/17 20:36 Warfarin Sodium (Coumadin) 4 mg DAILY PO 07/15/17 09:00 07/19/17 08:14 Acetaminophen (Tylenol) 650 mg Q4H PRN PO SEE LABEL COMMENTS 07/15/17 09:00 07/15/17 17:08 Ceftriaxone Sodium 1000 mg/ Sodium Chloride 100 ml @ 200 mls/hr Q24H IV 07/17/17 11:00 07/18/17 11:00 Objective Remarks GENERAL: Elderly female sitting up in bed in nad. SKIN: Warm and dry. HEAD: Normocephalic. EYES: No injection or drainage. NECK: Supple, trachea midline. CARDIOVASCULAR: +S1/S2. RESPIRATORY: anterior bullock with occasional rhonchi. GASTROINTESTINAL: Abdomen soft, non-tender, nondistended. EXTREMITIES: No cyanosis. bilateral lower extremity edema. chronic venous insufficiency noted in both legs. right leg with clean bandages in place. NEUROLOGICAL: awake and alert, normal speech. Assessment/Plan Problem List: (1) Iron deficiency anemia ICD Codes: D50.9 - Iron deficiency anemia, unspecified Plan: 07/19/17: Monitor CBC. will obtain LLE U/S, r/o DVT. -- MARYAM due to GI bleeding -- has had multiple scopes outpatient as well as pill endoscopy -- Well known to our outpatient clinic for frequent iron, PRBC transfusions. -- GI following, s/p small bowel enteroscopy with AVM ablation on 07/15. GI signed off. Assessment 81-year-old male with history of iron deficiency anemia admitted for fall ++RLE hematoma ++on Coumadin for atrial fibrillation. Attending Statement The exam, history, and the medical decision-making described in the above note were completed with the assistance of the mid-level provider. I reviewed and agree with the findings presented. I attest that I had a [id number] encounter with the patient on the same day, and personally performed and documented my assessment and findings in the medical record. Offer no complaints Ultrasound shows no DVT ID consult reviewed Okay to discharge Lelia Bernabe Jul 19, 2017 11:10 Michele Garcia MD Jul 20, 2017 00:26
--- NOTE | 2017-07-19 11:16 | RADRPT ---
EXAM DATE/TIME: 07/19/2017 10:51 [place] COMPARISON: No previous studies available for comparison. EXTERNAL COMPARISON : [facility], US LEG, BILATERAL VENOUS DOPPLER, September 05, 2012 INDICATIONS : Left leg edema. MEDICAL HISTORY : Congestive heart failure. Hypercholesterolemia. Hernia, hiatal. Left ear tinnitus. Bilateral feet numbness. Afib. HTN. COPD. Sleep apnea. Dyspnea. BPH. Arthritis. Diabetes. Anemia. Depression. Anxiet y. Anticoagulant therapy, Coumadin. SURGICAL HISTORY : Pacemaker. Appendectomy. Cholecystectomy. Bilateral cataracts. Hernia repair. Bilateral TKR. ENCOUNTER: Initial ACUITY: 1 week PAIN SCORE: 5/10 LOCATION: Left leg. TECHNIQUE: Venous ultrasound of the leg was performed from the inguinal ligament to the proximal calf. Real-tamiko e, color Doppler and spectral tracing, compression and augmentation techniques were used. FINDINGS: There is normal compressibility of the deep venous system from the inguinal region to the proximal ca lf. No echogenic clot is seen in the lumen of the common femoral, femoral, popliteal, and posterior tibial veins. There is a normal response of the venous system to proximal and distal augmentation an d respiration. CONCLUSION: Normal examination. Garrett Sam MD on July 19, 2017 at 11:14 Board Certified Radiologist. This report was verified electronically.
[2017-07-19] MEDS: cefTRIAXone INJ 1,000 MG in SODIUM CHLORIDE 0.9% INJ 100 ML IV SCH (11:39)
[2017-07-19 12:00] VITALS: BP 98/50; PULSE 70; RESP 18; TEMP 98.3; O2SAT 97
--- NOTE | 2017-07-19 15:44 | HHI.PR ---
Subjective Remarks This is a pleasant 81 y/o Male status post Colonoscopy and EGD and had cautery of AVM in Stomach status post blood transfusion, Hemoglobin stable, found yesterday with Cellulitis of the left knee, started on antibiotics, seen in his bedroom, patient anxious to leave the hospital, I want to get recommendations by ID specialist about this case, he continue with warm Left knee he states he had surgery on this Knee 10 years ago he has Prosthetic material on this knee. 07/19: Patient seen in his bedroom he will be seen later by Doctor Rashid and will let me know. no nausea, vomit or diarrhea. Objective Vital Signs Date Time Temp Pulse Resp B/P (MAP) Pulse Ox O2 Delivery O2 Flow Rate FiO2 07/19/17 13:36 18 07/19/17 12:00 98.3 70 18 98/50 (66) 97 07/19/17 08:00 97.9 70 17 104/56 (72) 94 07/19/17 00:00 98.1 78 16 113/59 (77) 95 07/18/17 23:59 Nasal Cannula 3.00 07/18/17 19:00 97.1 70 16 110/58 (75) 98 07/18/17 16:00 96.1 70 18 100/52 (68) 98 I/O 07/18/17 07/18/17 07/18/17 07/19/17 07/19/17 07/19/17 07:00 15:00 23:00 07:00 15:00 23:00 Intake Total 240 ml 720 ml 265 ml 960 ml Output Total 300 ml 650 ml 650 ml Balance -60 ml 70 ml 265 ml 310 ml Intake Oral 240 ml 720 ml 960 ml IV Total 265 ml Output Urine Total 300 ml 650 ml 650 ml # Voids 4 # Bowel Movements 0 0 0 Result Diagram: 07/19/17 0706 07/18/17 0642 Imaging Last Impressions Lower Extremity Ultrasound 07/19/17 0000 Signed Impressions: Service Date/Time: Wednesday, July 19, 2017 10:51 - CONCLUSION: Normal examination. Garrett Sam MD Tibia/Fibula X-Ray 07/10/17 0000 Signed Impressions: Service Date/Time: Monday, July 10, 2017 16:17 - CONCLUSION: Soft tissue swelling/hematoma suspected subcutaneous tissues without obvious fracture. Harley Medellin MD Pelvis X-Ray 07/10/17 0000 Signed Impressions: Service Date/Time: Monday, July 10, 2017 16:27 - CONCLUSION: No definite fractures. Harley Medellin MD Knee X-Ray 07/10/17 0000 Signed Impressions: Service Date/Time: Monday, July 10, 2017 16:22 - CONCLUSION: Small knee joint effusion and prominent soft tissue swelling is seen anterior to the knee. Harley Medellin MD Procedures Colonoscopy with Polypectomy, cecum polyp found Ileocolonic anastomosis, Internal hemorrhoids, External Hemorrhoids for new Colonoscopy in one year and yearly Hemoccult. 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 recommended for anti-reflux regimen and avoid NSAIDs. Other Results Laboratory Tests Test 07/11/17 13:50 07/11/17 14:30 07/16/17 06:12 07/18/17 06:42 Iron Level 62 MCG/DL Total Iron Binding Capacity 358 MCG/DL Percent Iron Saturation 17.3 % Transferrin 256 MG/DL Ferritin 48 NG/ML Digoxin Level 1.2 NG/ML Total Creatine Kinase 25 U/L Hemoglobin A1c 6.4 % Protein Corrected Calcium 7.6 MG/DL Free Thyroxine 1.26 NG/DL Thyroid Stimulating Hormone 3rd Gen 6.720 uIU/ML Blood Urea Nitrogen 52 MG/DL Creatinine 1.69 MG/DL Random Glucose 116 MG/DL Total Protein 5.5 GM/DL Albumin 2.2 GM/DL Calcium Level 8.3 MG/DL Phosphorus Level 3.1 MG/DL Magnesium Level 1.9 MG/DL Alkaline Phosphatase 45 U/L Aspartate Amino Transf (AST/SGOT) 13 U/L Alanine Aminotransferase (ALT/SGPT) 10 U/L Total Bilirubin 0.9 MG/DL Sodium Level 139 MEQ/L Potassium Level 4.2 MEQ/L Chloride Level 98 MEQ/L Carbon Dioxide Level 35.3 MEQ/L Anion Gap 6 MEQ/L Estimat Glomerular Filtration Rate 39 ML/MIN Test 07/19/17 07:06 White Blood Count 5.1 TH/MM3 Red Blood Count 3.41 MIL/MM3 Hemoglobin 9.1 GM/DL Hematocrit 28.7 % Mean Corpuscular Volume 84.2 FL Mean Corpuscular Hemoglobin 26.8 PG Mean Corpuscular Hemoglobin Concent 31.8 % Red Cell Distribution Width 20.9 % Platelet Count 229 TH/MM3 Mean Platelet Volume 8.6 FL Neutrophils (%) (Auto) 75.0 % Lymphocytes (%) (Auto) 7.2 % Monocytes (%) (Auto) 11.1 % Eosinophils (%) (Auto) 5.3 % Basophils (%) (Auto) 1.4 % Neutrophils # (Auto) 3.8 TH/MM3 Lymphocytes # (Auto) 0.4 TH/MM3 Monocytes # (Auto) 0.6 TH/MM3 Eosinophils # (Auto) 0.3 TH/MM3 Basophils # (Auto) 0.1 TH/MM3 CBC Comment DIFF FINAL Differential Comment Prothrombin Time 13.3 SEC Prothromb Time International Ratio 1.2 RATIO Objective Remarks GENERAL: Obese patient in now acute distress. SKIN: Ecchymosis of bilateral upper extremities. HEAD: Atraumatic. Normocephalic. EYES: Pupils equal and round. No scleral icterus. No injection or drainage. EOMI ENT: No nasal bleeding or discharge. Mucous membranes pink and moist. TONGUE MIDLINE NECK: Trachea midline. No JVD. SUPPLE CARDIOVASCULAR: Regular rate and rhythm. S1 and S2 no S3 or S4 no heave or thrill or rub or gallop RESPIRATORY: No accessory muscle use. Clear to auscultation. Breath sounds equal bilaterally. GASTROINTESTINAL: Abdomen soft, non-tender, nondistended. Hepatic and splenic margins not palpable. MUSCULOSKELETAL: Left knee with edema no erythema. NEUROLOGICAL: Awake and alert. No obvious cranial nerve deficits. Motor grossly within normal limits. 4 out of 5 muscle strength in the arms and legs. Normal speech. PSYCHIATRIC: Appropriate mood and affect; insight and judgment normal. Medications and IVs Current Medications Medications (Trade) Dose Ordered Sig/Faviola Route Start Time Stop Time Status Last Admin (NS Flush) 2 ml UNSCH PRN IV FLUSH 07/10/17 19:45 07/12/17 05:43 (NS Flush) 2 ml BID IV FLUSH 07/10/17 21:00 07/19/17 08:17 (Zofran Inj) 4 mg Q6H PRN IVP 07/10/17 19:45 (Tylenol) 650 mg Q6H PRN PO 07/10/17 19:45 07/16/17 00:16 ([place] 5-325 Mg) 1 tab Q4H PRN PO 07/10/17 19:45 07/19/17 12:36 (Morphine Inj) 2 mg Q3H PRN IV PUSH 07/10/17 19:45 07/13/17 02:53 (Helene-Colace) 1 tab BID PO 07/10/17 21:00 07/19/17 08:15 (Milk Of Magnesia Liq) 30 ml Q12H PRN PO 07/10/17 19:45 07/17/17 20:03 (Senokot) 17.2 mg Q12H PRN PO 07/10/17 19:45 07/16/17 08:22 (Dulcolax Supp) 10 mg DAILY PRN RECTAL 07/10/17 19:45 07/13/17 02:29 (Lactulose Liq) 30 ml DAILY PRN PO 07/10/17 19:45 (Elavil) 50 mg HS PO 07/10/17 21:00 07/18/17 20:34 (Lipitor) 40 mg DAILY PO 07/11/17 09:00 07/19/17 08:15 (Vitamin D3) 5,000 units HS PO 07/10/17 21:00 07/18/17 20:34 (Vitamin B12) 100 mcg DAILY PO 07/11/17 09:00 07/19/17 08:14 (Lanoxin) 0.125 mg DAILY PO 07/11/17 09:00 07/19/17 08:16 (Proscar) 5 mg HS PO 07/10/17 21:00 07/18/17 20:35 (Neurontin) 300 mg TID PO 07/11/17 09:00 07/19/17 12:35 (Levemir Inj) 15 units HS SQ 07/10/17 21:00 07/18/17 20:36 (Duoneb Neb) 1 ampule Q4HR NEB PRN NEB 07/10/17 20:15 (Prinivil) 20 mg DAILY PO 07/11/17 09:00 07/18/17 08:12 (Ativan) 2 mg Q6H PRN PO 07/10/17 20:15 07/19/17 08:15 (Bystolic) 10 mg BID PO 07/10/17 21:00 07/18/17 20:35 (Demadex) 40 mg BID PO 07/10/17 21:00 07/18/17 20:34 (Desyrel) 50 mg HS PO 07/10/17 21:00 07/18/17 20:34 Patient Own Medication PT OWN MED: (Acarb... DAILY@1700 PO 07/11/17 17:00 Future Hold Patient Own Medication PT OWN MED: (Acarb... DAILY@0800 PO 07/11/17 08:00 Future Hold Patient Own Medication PT OWN MED: (Clobeta... BID PRN TOPICAL 07/10/17 20:30 Future Hold (Protonix) 40 mg BID PO 07/10/17 21:00 07/19/17 08:15 (Ferrous Sulfate) 325 mg BID PO 07/11/17 09:00 07/19/17 08:14 (Vitamin C) 250 mg BID PO 07/11/17 09:00 07/19/17 08:15 (Pill Splitter) 1 ea UNSCH PRN OTHER 07/11/17 09:00 07/12/17 08:48 (NovoLOG SUPPLEMENTAL SCALE) 1 ACHS SLIDING SCALE SQ 07/11/17 17:00 07/19/17 12:35 (D50w (Vial) Inj) 50 ml UNSCH PRN IV PUSH 07/12/17 09:30 (Glucagon Inj) 1 mg UNSCH PRN OTHER 07/12/17 09:30 (Coumadin) 4 mg DAILY PO 07/15/17 09:00 07/19/17 08:14 (Tylenol) 650 mg Q4H PRN PO 07/15/17 09:00 07/15/17 17:08 Ceftriaxone Sodium 1000 mg/ Sodium Chloride 100 ml @ 200 mls/hr Q24H IV 07/17/17 11:00 07/19/17 11:39 A/P Assessment and Plan In summary this is an 81-year-old male admitted to the hospital after a mechanical fall. He tripped and fell injuring his left knee and right lower extremity. He did not sustain any fractures. He was found to be severely anemic on presentation. His Hemoccult is positive. History of AVM. He has been transfused and there is plan for colonoscopy. Prep for colonoscopy is ongoing. - Fall: s/p mechanical fall at home after tripping on carpet, no LOC or head trauma reported. - Left Knee Effusion: secondary to fall, left knee tenderness to palpation, decreased ROM. Left Knee X-ray w/ small knee joint effusion and prominent soft tissue swelling, images reviewed by me. Analgesics as needed. Patient is deconditioned. will be discharged to SNF to continue rehab, at this time receiving management for left knee cellulitis, I like to have recommendations by ID specialist he had an arthroplasty 10 years ago. - RLE Hematoma: secondary to fall/injury, Tib-Fib X-ray w/ soft tissue swelling/hematoma, no fracture. - Iron Deficiency anemia followed by azure principal solution specialist, states due to bleeding, status post multiple scopes, and pill endoscopy, known to Hematology outpatient clinic with history of multiple blood transfusions, GI following status psot small bowel enteroscopy, with AVM ablation on 07/15, signed off the case, RLE hematoma, on Coumadin for Atrial fibrillation, recommended discharge to Rehab from Hematology standpoint. continue Iron IV. - Intermittent GI bleeding and history of AVM. GI is following. Plan for colonoscopy per GI --HAD COLONOSCOPY AND EGD ON 07-15 - Gait Instability: secondary to above. Unable to ambulate safely without assistance at this time. Continue PT, will need SNF. Patient is now agreeable. - A-fib: Chronic. On Coumadin. INR therapeutic on presentation, INR trending down to 1.2 Coumadin was held. Given no signs of active bleeding, Resume home dose Coumadin. - CHF: Chronic. Diastolic. Echo 06/09/17 w/ EF 55-60%. However he does have reduced right ventricular systolic function with dilated right ventricle and atrium and increased pulmonary hypertension 60 mmHg, Resume home medications. Monitor I/O. - DM: Sliding scale w/ Accu-Cheks. Resume home Insulin. - DVT Prophylaxis: On Coumadin as above. I had the pleasure to talk about this case with Doctor Brielle Mike Infectious disease specialist she will see the patient later and let me know her thinking about this case Appreciated. Discharge Planning To SNF once cleared by ID specialist William Weinstein MD Jul 19, 2017 15:44
[2017-07-19 16:00] VITALS: BP 104/50; PULSE 70; RESP 18; TEMP 97.7; O2SAT 95
--- NOTE | 2017-07-19 16:02 | PD.ID.CON ---
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 fib on Coumadin, COPD, DM, Anxiety and Depression Past Surgical History Hernia Repair, AICD, Appendectomy, Bilateral Knee Replacement, Bilateral Cataract Surgery Active Ordered Medications Medications where reviewed in EMR Antibiotics Include: CFTX 1 gm Family History Reviewed. No h/o DM or CAD Social History Negative for alcohol, tobacco or drugs. Physical Exam Vital Signs Vital Signs Date Time Temp Pulse Resp B/P (MAP) Pulse Ox O2 Delivery O2 Flow Rate FiO2 07/19/17 13:36 18 07/19/17 12:00 98.3 70 18 98/50 (66) 97 07/19/17 08:00 97.9 70 17 104/56 (72) 94 07/19/17 00:00 98.1 78 16 113/59 (77) 95 07/18/17 23:59 Nasal Cannula 3.00 07/18/17 19:00 97.1 70 16 110/58 (75) 98 07/18/17 16:00 96.1 70 18 100/52 (68) 98 Physical Exam CONSTITUTIONAL/GENERAL: This is an obese elderly patient, in no apparent distress. TUBES/LINES/DRAINS: SKIN: No jaundice, rashes, or lesions. Ecchymoses on upper extremities. Skin temperature appropriate. Not diaphoretic. HEAD: Atraumatic. Normocephalic. EYES: Pupils equal and round and reactive. Extraocular motions intact. No scleral icterus. No injection or drainage. Fundi not examined. ENT: Hearing grossly normal. Nose without bleeding or purulent drainage. Throat without visible erythema, exudates, masses, or lesions. NECK: Trachea midline. Supple, nontender. CARDIOVASCULAR: Regular rate and rhythm without murmurs, gallops, or rubs. No JVD. Peripheral pulses symmetric. Pacer in place L chest w/o skin changes over it RESPIRATORY/CHEST: Symmetric, unlabored respirations. Clear to auscultation. Breath sounds equal bilaterally. No wheezes, rales, or rhonchi. GASTROINTESTINAL: Abdomen soft, non-tender, nondistended. No hepato-splenomegaly , or palpable masses. No guarding. Bowel sounds present. MUSCULOSKELETAL: Extremities without clubbing, cyanosis, 3+ soft pittinge edema BLE, more prominnent on the LLE Well healed atrophic scars on bl knees Erythema (violacious), warmth LLE) . No joint tenderness or effusion noted. No calf tenderness. No mottling or clubbing. LYMPHATICS: No palpable cervical or supraclavicular adenopathy. NEUROLOGICAL: Awake and alert. Motor and sensory grossly within normal limits. Follows commands. Clear speech . Moves all extremities. PSYCHIATRIC: No obvious anxiety/depression. no apparent hallucinations or other psychotic thought process. Laboratory Laboratory Tests Test 07/19/17 07:06 White Blood Count 5.1 Red Blood Count 3.41 Hemoglobin 9.1 Hematocrit 28.7 Mean Corpuscular Volume 84.2 Mean Corpuscular Hemoglobin 26.8 Mean Corpuscular Hemoglobin Concent 31.8 Red Cell Distribution Width 20.9 Platelet Count 229 Mean Platelet Volume 8.6 Neutrophils (%) (Auto) 75.0 Lymphocytes (%) (Auto) 7.2 Monocytes (%) (Auto) 11.1 Eosinophils (%) (Auto) 5.3 Basophils (%) (Auto) 1.4 Neutrophils # (Auto) 3.8 Lymphocytes # (Auto) 0.4 Monocytes # (Auto) 0.6 Eosinophils # (Auto) 0.3 Basophils # (Auto) 0.1 CBC Comment DIFF FINAL Differential Comment Prothrombin Time 13.3 Prothromb Time International Ratio 1.2 Result Diagram: 07/19/17 0706 07/18/17 0642 Imaging Last Impressions Lower Extremity Ultrasound 07/19/17 0000 Signed Impressions: Service Date/Time: Wednesday, July 19, 2017 10:51 - CONCLUSION: Normal examination. Garrett Sam MD Tibia/Fibula X-Ray 07/10/17 0000 Signed Impressions: Service Date/Time: Monday, July 10, 2017 16:17 - CONCLUSION: Soft tissue swelling/hematoma suspected subcutaneous tissues without obvious fracture. Harley Medellin MD Pelvis X-Ray 07/10/17 0000 Signed Impressions: Service Date/Time: Monday, July 10, 2017 16:27 - CONCLUSION: No definite fractures. Harley Medellin MD Knee X-Ray 07/10/17 0000 Signed Impressions: Service Date/Time: Monday, July 10, 2017 16:22 - CONCLUSION: Small knee joint effusion and prominent soft tissue swelling is seen anterior to the knee. Harley Medellin MD Assessment and Plan Assessment and Plan sp fall Mild cellulits LLE Multiple med problems B/l TKA - look fine dc CFTX start keflex to complete total 10-14 days of therapy Brielle Mike MD Jul 19, 2017 16:02
[2017-07-19 20:45] VITALS: BP 110/58; PULSE 72; RESP 17; TEMP 98.7; O2SAT 92
[2017-07-19] MEDS: INSULIN DETEMIR 100 UNITS/ML VIAL SQ SCH (21:58)
[2017-07-19] MEDS: CHOLECALCIFEROL (VIT D3) 5000 UNIT CAP PO SCH (21:59)
[2017-07-19] MEDS: AMITRIPTYLINE HCL 50 MG TAB PO SCH (21:59)
[2017-07-19] MEDS: FINASTERIDE 5 MG TAB PO SCH (22:00)
[2017-07-19] MEDS: traZODone HCL 50 MG TAB PO SCH (22:00)
[2017-07-19 23:30] VITALS: BP 116/52; PULSE 70; RESP 17; TEMP 98.7; O2SAT 92
[2017-07-20 08:00] VITALS: BP 104/54; PULSE 70; RESP 16; TEMP 98.3; O2SAT 91
[2017-07-20] MEDS: INSULIN ASPART SUPPLEMENTAL SCALE SQ SCH ×2 (08:45→12:15)
[2017-07-20] MEDS: DOCUSATE SODIUM 50 MG/SENNA 8.6 MG TAB PO SCH (08:45)
[2017-07-20] MEDS: ACETAMINOPHEN/HYDROcodone 325 MG/5 MG TAB PO PRN ×2 (08:45→15:43)
[2017-07-20] MEDS: LORazepam 2 MG TAB PO PRN ×2 (08:46→15:43)
[2017-07-20] MEDS: ATORVASTATIN 40 MG TAB PO SCH (08:47)
[2017-07-20] MEDS: PANTOPRAZOLE SOD 40 MG DELAYED RELEASE TAB PO SCH (08:47)
[2017-07-20] MEDS: ASCORBIC ACID 500 MG TAB PO SCH (08:47)
[2017-07-20] MEDS: CYANOCOBALAMIN 100 MCG TAB PO SCH (08:47)
[2017-07-20] MEDS: DIGOXIN 0.125 MG TAB PO SCH (08:47)
[2017-07-20] MEDS: FERROUS SULFATE 325 MG (65 MG ELEMENTAL IRON) TAB PO SCH (08:48)
[2017-07-20] MEDS: WARFARIN SOD 4 MG TAB PO SCH (08:48)
[2017-07-20] MEDS: GABAPENTIN 300 MG CAP PO SCH ×2 (08:48→12:14)
[2017-07-20] MEDS: SODIUM CHLORIDE 0.9% FLUSH 10 ML FLUSH IV FLUSH SCH (08:49)
[2017-07-20] MEDS: NEBIVOLOL 10 MG TAB PO SCH (08:55)
[2017-07-20] MEDS: LISINOPRIL 20 MG TAB PO SCH (08:55)
[2017-07-20] MEDS: TORSEMIDE 20 MG TAB PO SCH (08:55)
--- NOTE | 2017-07-20 10:57 | HHI.PR ---
Subjective Remarks This is a pleasant 81 y/o Male status post Colonoscopy and EGD and had cautery of AVM in Stomach status post blood transfusion, Hemoglobin stable, found yesterday with Cellulitis of the left knee, started on antibiotics, seen in his bedroom, patient anxious to leave the hospital, I want to get recommendations by ID specialist about this case, he continue with warm Left knee he states he had surgery on this Knee 10 years ago he has Prosthetic material on this knee. 07/19: Patient seen in his bedroom he will be seen later by Doctor Rashid and will let me know. 07/20: Stable seen in his bedroom, no nausea, vomit or diarrhea, Status post fall, has Mild Cellulitis LLE, Multiple Medication, recommended to discontinue Ceftriaxone and continue Keflex to complete 10 to 14 days of therapy. okay to discharge to SNF today. Objective Vital Signs Date Time Temp Pulse Resp B/P (MAP) Pulse Ox O2 Delivery O2 Flow Rate FiO2 07/20/17 08:00 98.3 70 16 104/54 (71) 91 07/19/17 23:30 98.7 70 17 116/52 (73) 92 07/19/17 23:08 Room Air 07/19/17 22:56 17 07/19/17 20:45 98.7 72 17 110/58 (75) 92 07/19/17 16:00 97.7 70 18 104/50 (68) 95 07/19/17 12:00 98.3 70 18 98/50 (66) 97 I/O 07/19/17 07/19/17 07/19/17 07/20/17 07/20/17 07/20/17 07:00 15:00 23:00 07:00 15:00 23:00 Intake Total 960 ml 600 ml 240 ml 240 ml Output Total 650 ml 650 ml Balance 310 ml -50 ml 240 ml 240 ml Intake Oral 960 ml 600 ml 240 ml 240 ml Output Urine Total 650 ml 650 ml # Voids 4 1 1 # Bowel Movements 0 0 0 0 Result Diagram: 07/19/17 0706 07/18/17 0642 Imaging Last Impressions Lower Extremity Ultrasound 07/19/17 0000 Signed Impressions: Service Date/Time: Wednesday, July 19, 2017 10:51 - CONCLUSION: Normal examination. Garrett Sam MD Tibia/Fibula X-Ray 07/10/17 0000 Signed Impressions: Service Date/Time: Monday, July 10, 2017 16:17 - CONCLUSION: Soft tissue swelling/hematoma suspected subcutaneous tissues without obvious fracture. Harley Medellin MD Pelvis X-Ray 07/10/17 0000 Signed Impressions: Service Date/Time: Monday, July 10, 2017 16:27 - CONCLUSION: No definite fractures. Harley Medellin MD Knee X-Ray 07/10/17 0000 Signed Impressions: Service Date/Time: Monday, July 10, 2017 16:22 - CONCLUSION: Small knee joint effusion and prominent soft tissue swelling is seen anterior to the knee. Harley Medellin MD Procedures Colonoscopy with Polypectomy, cecum polyp found Ileocolonic anastomosis, Internal hemorrhoids, External Hemorrhoids for new Colonoscopy in one year and yearly Hemoccult. 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 recommended for anti-reflux regimen and avoid NSAIDs. Other Results Laboratory Tests Test 07/11/17 13:50 07/11/17 14:30 07/16/17 06:12 07/18/17 06:42 Iron Level 62 MCG/DL Total Iron Binding Capacity 358 MCG/DL Percent Iron Saturation 17.3 % Transferrin 256 MG/DL Ferritin 48 NG/ML Digoxin Level 1.2 NG/ML Total Creatine Kinase 25 U/L Hemoglobin A1c 6.4 % Protein Corrected Calcium 7.6 MG/DL Free Thyroxine 1.26 NG/DL Thyroid Stimulating Hormone 3rd Gen 6.720 uIU/ML Blood Urea Nitrogen 52 MG/DL Creatinine 1.69 MG/DL Random Glucose 116 MG/DL Total Protein 5.5 GM/DL Albumin 2.2 GM/DL Calcium Level 8.3 MG/DL Phosphorus Level 3.1 MG/DL Magnesium Level 1.9 MG/DL Alkaline Phosphatase 45 U/L Aspartate Amino Transf (AST/SGOT) 13 U/L Alanine Aminotransferase (ALT/SGPT) 10 U/L Total Bilirubin 0.9 MG/DL Sodium Level 139 MEQ/L Potassium Level 4.2 MEQ/L Chloride Level 98 MEQ/L Carbon Dioxide Level 35.3 MEQ/L Anion Gap 6 MEQ/L Estimat Glomerular Filtration Rate 39 ML/MIN Test 07/19/17 07:06 White Blood Count 5.1 TH/MM3 Red Blood Count 3.41 MIL/MM3 Hemoglobin 9.1 GM/DL Hematocrit 28.7 % Mean Corpuscular Volume 84.2 FL Mean Corpuscular Hemoglobin 26.8 PG Mean Corpuscular Hemoglobin Concent 31.8 % Red Cell Distribution Width 20.9 % Platelet Count 229 TH/MM3 Mean Platelet Volume 8.6 FL Neutrophils (%) (Auto) 75.0 % Lymphocytes (%) (Auto) 7.2 % Monocytes (%) (Auto) 11.1 % Eosinophils (%) (Auto) 5.3 % Basophils (%) (Auto) 1.4 % Neutrophils # (Auto) 3.8 TH/MM3 Lymphocytes # (Auto) 0.4 TH/MM3 Monocytes # (Auto) 0.6 TH/MM3 Eosinophils # (Auto) 0.3 TH/MM3 Basophils # (Auto) 0.1 TH/MM3 CBC Comment DIFF FINAL Differential Comment Prothrombin Time 13.3 SEC Prothromb Time International Ratio 1.2 RATIO Objective Remarks GENERAL: Obese patient in now acute distress. SKIN: Ecchymosis of bilateral upper extremities. HEAD: Atraumatic. Normocephalic. EYES: Pupils equal and round. No scleral icterus. No injection or drainage. EOMI ENT: No nasal bleeding or discharge. Mucous membranes pink and moist. TONGUE MIDLINE NECK: Trachea midline. No JVD. SUPPLE CARDIOVASCULAR: Regular rate and rhythm. S1 and S2 no S3 or S4 no heave or thrill or rub or gallop RESPIRATORY: No accessory muscle use. Clear to auscultation. Breath sounds equal bilaterally. GASTROINTESTINAL: Abdomen soft, non-tender, nondistended. Hepatic and splenic margins not palpable. MUSCULOSKELETAL: Left knee with edema mild erythema. NEUROLOGICAL: Awake and alert. No obvious cranial nerve deficits. PSYCHIATRIC: Appropriate mood and affect. Medications and IVs Current Medications Medications (Trade) Dose Ordered Sig/Faviola Route Start Time Stop Time Status Last Admin (NS Flush) 2 ml UNSCH PRN IV FLUSH 07/10/17 19:45 07/12/17 05:43 (NS Flush) 2 ml BID IV FLUSH 07/10/17 21:00 07/20/17 08:49 (Zofran Inj) 4 mg Q6H PRN IVP 07/10/17 19:45 (Tylenol) 650 mg Q6H PRN PO 07/10/17 19:45 07/16/17 00:16 (Regan 5-325 Mg) 1 tab Q4H PRN PO 07/10/17 19:45 07/20/17 08:45 (Morphine Inj) 2 mg Q3H PRN IV PUSH 07/10/17 19:45 07/13/17 02:53 (Helene-Colace) 1 tab BID PO 07/10/17 21:00 07/20/17 08:45 (Milk Of Magnesia Liq) 30 ml Q12H PRN PO 07/10/17 19:45 07/17/17 20:03 (Senokot) 17.2 mg Q12H PRN PO 07/10/17 19:45 07/16/17 08:22 (Dulcolax Supp) 10 mg DAILY PRN RECTAL 07/10/17 19:45 07/13/17 02:29 (Lactulose Liq) 30 ml DAILY PRN PO 07/10/17 19:45 07/20/17 08:48 (Elavil) 50 mg HS PO 07/10/17 21:00 07/19/17 21:59 (Lipitor) 40 mg DAILY PO 07/11/17 09:00 07/20/17 08:47 (Vitamin D3) 5,000 units HS PO 07/10/17 21:00 07/19/17 21:59 (Vitamin B12) 100 mcg DAILY PO 07/11/17 09:00 07/20/17 08:47 (Lanoxin) 0.125 mg DAILY PO 07/11/17 09:00 07/20/17 08:47 (Proscar) 5 mg HS PO 07/10/17 21:00 07/19/17 22:00 (Neurontin) 300 mg TID PO 07/11/17 09:00 07/20/17 08:48 (Levemir Inj) 15 units HS SQ 07/10/17 21:00 07/19/17 21:58 (Duoneb Neb) 1 ampule Q4HR NEB PRN NEB 07/10/17 20:15 (Prinivil) 20 mg DAILY PO 07/11/17 09:00 07/18/17 08:12 (Ativan) 2 mg Q6H PRN PO 07/10/17 20:15 07/20/17 08:46 (Bystolic) 10 mg BID PO 07/10/17 21:00 07/19/17 21:59 (Demadex) 40 mg BID PO 07/10/17 21:00 07/19/17 21:59 (Desyrel) 50 mg HS PO 07/10/17 21:00 07/19/17 22:00 Patient Own Medication PT OWN MED: (Acarb... DAILY@1700 PO 07/11/17 17:00 Future Hold Patient Own Medication PT OWN MED: (Acarb... DAILY@0800 PO 07/11/17 08:00 Future Hold Patient Own Medication PT OWN MED: (Clobeta... BID PRN TOPICAL 07/10/17 20:30 Future Hold (Protonix) 40 mg BID PO 07/10/17 21:00 07/20/17 08:47 (Ferrous Sulfate) 325 mg BID PO 07/11/17 09:00 07/20/17 08:48 (Vitamin C) 250 mg BID PO 07/11/17 09:00 07/20/17 08:47 (Pill Splitter) 1 ea UNSCH PRN OTHER 07/11/17 09:00 07/12/17 08:48 (NovoLOG SUPPLEMENTAL SCALE) 1 ACHS SLIDING SCALE SQ 07/11/17 17:00 07/20/17 08:45 (D50w (Vial) Inj) 50 ml UNSCH PRN IV PUSH 07/12/17 09:30 (Glucagon Inj) 1 mg UNSCH PRN OTHER 07/12/17 09:30 (Coumadin) 4 mg DAILY PO 07/15/17 09:00 07/20/17 08:48 (Tylenol) 650 mg Q4H PRN PO 07/15/17 09:00 07/15/17 17:08 Ceftriaxone Sodium 1000 mg/ Sodium Chloride 100 ml @ 200 mls/hr Q24H IV 07/17/17 11:00 07/19/17 11:39 A/P Assessment and Plan In summary this is an 81-year-old male admitted to the hospital after a mechanical fall. He tripped and fell injuring his left knee and right lower extremity. He did not sustain any fractures. He was found to be severely anemic on presentation. His Hemoccult is positive. History of AVM. He has been transfused and there is plan for colonoscopy. Prep for colonoscopy is ongoing. - Fall: s/p mechanical fall at home after tripping on carpet, no LOC or head trauma reported. - Left Knee Effusion: secondary to fall, left knee tenderness to palpation, decreased ROM. Left Knee X-ray w/ small knee joint effusion and prominent soft tissue swelling, images reviewed by me. Analgesics as needed. Patient is deconditioned. will be discharged to SNF to continue rehab, at this time receiving management for left knee cellulitis, I like to have recommendations by ID specialist he had an arthroplasty 10 years ago. seen by Doctor Mike recommended to continue Keflex for 10 to 14 days. - RLE Hematoma: secondary to fall/injury, Tib-Fib X-ray w/ soft tissue swelling/hematoma, no fracture. - Iron Deficiency anemia followed by sales administration specialist, states due to bleeding, status post multiple scopes, and pill endoscopy, known to Hematology outpatient clinic with history of multiple blood transfusions, GI following status psot small bowel enteroscopy, with AVM ablation on 07/15, signed off the case, RLE hematoma, on Coumadin for Atrial fibrillation, recommended discharge to Rehab from Hematology standpoint. continue Iron IV. - Intermittent GI bleeding and history of AVM. GI is following. Plan for colonoscopy per GI --HAD COLONOSCOPY AND EGD ON 07-15, AVM ablation, GI signed off the case. - Gait Instability: secondary to above. Unable to ambulate safely without assistance at this time. Continue PT, will need SNF. Patient is now agreeable. - A-fib: Chronic. On Coumadin. INR therapeutic on presentation, INR trending down to 1.2 Coumadin was held. Given no signs of active bleeding, Resume home dose Coumadin. will continue to follow INR at SNF on daily bases and continue titration by Attending physician at SNF. - CHF: Chronic. Diastolic. Echo 06/09/17 w/ EF 55-60%. However he does have reduced right ventricular systolic function with dilated right ventricle and atrium and increased pulmonary hypertension 60 mmHg, Resume home medications. Monitor I/O. - DM II: Sliding scale w/ Accu-Cheks. Resume home Insulin. - DVT Prophylaxis: On Coumadin as above. I had the pleasure to talk about this case with Doctor Brielle Mike Infectious disease specialist she will see the patient later and let me know her thinking about this case Appreciated. Discharge Planning Discharge to SNF today. William Weinstein MD Jul 20, 2017 10:57
[2017-07-20] MEDS ORDERED: WARF-23 PO (11:04)
[2017-07-20] MEDS ORDERED: TYLETAB34 PO (11:04)
[2017-07-20] MEDS ORDERED: FERR325T20 PO (11:04)
[2017-07-20] MEDS ORDERED: LORA-475 PO (11:04)
--- NOTE | 2017-07-20 11:07 | HHI.DS ---
Discharge Summary Admission Date Jul 11, 2017 at 12:14 Discharge Date: Jul 20, 2017 Admitting Diagnosis fall, left knee effusion, right leg hematoma (1) Fall ICD Code: W19.XXXA - Unspecified fall, initial encounter Diagnosis: Principal (2) Gait instability ICD Code: R26.81 - Unsteadiness on feet Diagnosis: Principal (3) Effusion, left knee ICD Code: M25.462 - Effusion, left knee Diagnosis: Principal Status: Acute (4) Hematoma of right lower extremity ICD Code: S80.11XA - Contusion of right lower leg, initial encounter Diagnosis: Principal Status: Acute (5) A-fib ICD Code: I48.91 - Unspecified atrial fibrillation Diagnosis: Principal (6) CHF (congestive heart failure) ICD Code: I50.9 - Heart failure, unspecified Diagnosis: Principal (7) DM (diabetes mellitus) ICD Code: E11.9 - Type 2 diabetes mellitus without complications Diagnosis: Secondary Procedures Colonoscopy with Polypectomy, cecum polyp found Ileocolonic anastomosis, Internal hemorrhoids, External Hemorrhoids for new Colonoscopy in one year and yearly Hemoccult. 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 recommended for anti-reflux regimen and avoid NSAIDs. Brief History - From Admission This is an 81-year-old male with a PMH of HTN, Hyperlipidemia, A. fib on Coumadin, COPD, DM, Anxiety and Depression who is brought here by EMS after mechanical fall with c/o left knee and right leg pain. Per pt, he tripped on carpet at his house and had subsequent fall, landed on his knees. Was unable to get up on his own, called EMS. Denies head trauma or LOC. On arrival, BP 118/59, HR 75, O2 sat 93% on RA, Afebrile. INR 2.0. Knee X-ray with small knee joint effusion and prominent soft tissue swelling. Pelvis X-ray negative. Right Tib-fib was soft tissue swelling/hematoma, no fracture. Pt was to be d/ c'd home, however pt and concerned as he is unable to ambulate safely due to his injuries. CBC/BMP: 07/19/17 0706 07/18/17 0642 Significant Findings Laboratory Tests Test 07/18/17 06:42 07/18/17 15:22 07/19/17 07:06 Red Blood Count 3.33 MIL/MM3 (4.50-5.90) 3.41 MIL/MM3 (4.50-5.90) Hemoglobin 8.9 GM/DL (13.0-17.0) 9.1 GM/DL (13.0-17.0) Hematocrit 27.8 % (39.0-51.0) 28.7 % (39.0-51.0) Mean Corpuscular Hemoglobin 26.9 PG (27.0-34.0) 26.8 PG (27.0-34.0) Red Cell Distribution Width 20.7 % (11.6-17.2) 20.9 % (11.6-17.2) Neutrophils (%) (Auto) 77.5 % (16.0-70.0) 75.0 % (16.0-70.0) Lymphocytes (%) (Auto) 6.1 % (9.0-44.0) 7.2 % (9.0-44.0) Monocytes (%) (Auto) 9.6 % (0.0-8.0) 11.1 % (0.0-8.0) Eosinophils (%) (Auto) 5.1 % (0.0-4.0) 5.3 % (0.0-4.0) Lymphocytes # (Auto) 0.3 TH/MM3 (1.0-4.8) 0.4 TH/MM3 (1.0-4.8) Blood Urea Nitrogen 52 MG/DL (7-18) Creatinine 1.69 MG/DL (0.60-1.30) Random Glucose 116 MG/DL (74-106) Total Protein 5.5 GM/DL (6.4-8.2) Albumin 2.2 GM/DL (3.4-5.0) Calcium Level 8.3 MG/DL (8.5-10.1) Aspartate Amino Transf (AST/SGOT) 13 U/L (15-37) Alanine Aminotransferase (ALT/SGPT) 10 U/L (12-78) Carbon Dioxide Level 35.3 MEQ/L (21.0-32.0) Estimat Glomerular Filtration Rate 39 ML/MIN (>89) Prothrombin Time 12.7 SEC (9.8-11.6) 13.3 SEC (9.8-11.6) Mean Corpuscular Hemoglobin Concent 31.8 % (32.0-36.0) Imaging Last Impressions Lower Extremity Ultrasound 07/19/17 0000 Signed Impressions: Service Date/Time: Wednesday, July 19, 2017 10:51 - CONCLUSION: Normal examination. Garrett Sam MD Tibia/Fibula X-Ray 07/10/17 0000 Signed Impressions: Service Date/Time: Monday, July 10, 2017 16:17 - CONCLUSION: Soft tissue swelling/hematoma suspected subcutaneous tissues without obvious fracture. Harley Medellin MD Pelvis X-Ray 07/10/17 0000 Signed Impressions: Service Date/Time: Monday, July 10, 2017 16:27 - CONCLUSION: No definite fractures. Harley Medellin MD Knee X-Ray 07/10/17 0000 Signed Impressions: Service Date/Time: Monday, July 10, 2017 16:22 - CONCLUSION: Small knee joint effusion and prominent soft tissue swelling is seen anterior to the knee. Harley Medellin MD PE at Discharge GENERAL: Obese patient in now acute distress. SKIN: Ecchymosis of bilateral upper extremities. HEAD: Atraumatic. Normocephalic. EYES: Pupils equal and round. No scleral icterus. No injection or drainage. EOMI ENT: No nasal bleeding or discharge. Mucous membranes pink and moist. TONGUE MIDLINE NECK: Trachea midline. No JVD. SUPPLE CARDIOVASCULAR: Regular rate and rhythm. S1 and S2 no S3 or S4 no heave or thrill or rub or gallop RESPIRATORY: No accessory muscle use. Clear to auscultation. Breath sounds equal bilaterally. GASTROINTESTINAL: Abdomen soft, non-tender, nondistended. Hepatic and splenic margins not palpable. MUSCULOSKELETAL: Left knee with edema mild erythema. NEUROLOGICAL: Awake and alert. No obvious cranial nerve deficits. PSYCHIATRIC: Appropriate mood and affect. Hospital Course This is a pleasant 81 y/o Male status post Colonoscopy and EGD and had cautery of AVM in Stomach status post blood transfusion, Hemoglobin stable, found yesterday with Cellulitis of the left knee, started on antibiotics, seen in his bedroom, patient anxious to leave the hospital, I want to get recommendations by ID specialist about this case, he continue with warm Left knee he states he had surgery on this Knee 10 years ago he has Prosthetic material on this knee. 07/19: Patient seen in his bedroom he will be seen later by Doctor Mike and will let me know. 07/20: Stable seen in his bedroom, no nausea, vomit or diarrhea, Status post fall, has Mild Cellulitis LLE, Multiple Medication, recommended to discontinue Ceftriaxone and continue Keflex to complete 10 to 14 days of therapy. okay to discharge to SNF today. Assessment and Plan In summary this is an 81-year-old male admitted to the hospital after a mechanical fall. He tripped and fell injuring his left knee and right lower extremity. He did not sustain any fractures. He was found to be severely anemic on presentation. His Hemoccult is positive. History of AVM. He has been transfused and there is plan for colonoscopy. Prep for colonoscopy is ongoing. - Fall: s/p mechanical fall at home after tripping on carpet, no LOC or head trauma reported. - Left Knee Effusion: secondary to fall, left knee tenderness to palpation, decreased ROM. Left Knee X-ray w/ small knee joint effusion and prominent soft tissue swelling, images reviewed by me. Analgesics as needed. Patient is deconditioned. will be discharged to SNF to continue rehab, at this time receiving management for left knee cellulitis, I like to have recommendations by ID specialist he had an arthroplasty 10 years ago. seen by Doctor Mike recommended to continue Keflex for 10 to 14 days. - RLE Hematoma: secondary to fall/injury, Tib-Fib X-ray w/ soft tissue swelling/hematoma, no fracture. - Iron Deficiency anemia followed by imaging specialist, states due to bleeding, status post multiple scopes, and pill endoscopy, known to Hematology outpatient clinic with history of multiple blood transfusions, GI following status psot small bowel enteroscopy, with AVM ablation on 07/15, signed off the case, RLE hematoma, on Coumadin for Atrial fibrillation, recommended discharge to Rehab from Hematology standpoint. continue Iron IV. - Intermittent GI bleeding and history of AVM. GI is following. Plan for colonoscopy per GI --HAD COLONOSCOPY AND EGD ON 07-15, AVM ablation, GI signed off the case. - Gait Instability: secondary to above. Unable to ambulate safely without assistance at this time. Continue PT, will need SNF. Patient is now agreeable. - A-fib: Chronic. On Coumadin. INR therapeutic on presentation, INR trending down to 1.2 Coumadin was held. Given no signs of active bleeding, Resume home dose Coumadin. will continue to follow INR at SNF on daily bases and continue titration by Attending physician at SNF. - CHF: Chronic. Diastolic. Echo 06/09/17 w/ EF 55-60%. However he does have reduced right ventricular systolic function with dilated right ventricle and atrium and increased pulmonary hypertension 60 mmHg, Resume home medications. Monitor I/O. - DM II: Sliding scale w/ Accu-Cheks. Resume home Insulin. - DVT Prophylaxis: On Coumadin as above. I had the pleasure to talk about this case with Doctor Brielle Mike Infectious disease specialist she will see the patient later and let me know her thinking about this case Appreciated. Discharge Planning Discharge to SNF today. Pt Condition on Discharge: Good Discharge Disposition: Discharge to SNF Discharge Time: > 30 minutes Discharge Instructions DIET: Follow Instructions for: Heart Healthy Diet, Diabetic Diet Activities you can perform: Regular-No Restrictions William Weinstein MD Jul 20, 2017 11:07
[2017-07-20 11:55] VITALS: BP 100/57; PULSE 70; RESP 18; TEMP 97.2; O2SAT 92
[2017-07-20] MEDS ORDERED: CEPH-460 PO (11:57)
[2017-07-20] MEDS: cefTRIAXone INJ 1,000 MG in SODIUM CHLORIDE 0.9% INJ 100 ML IV SCH (12:14)
[2017-07-20 15:30] VITALS: BP 118/53; PULSE 68; RESP 19; TEMP 97.9; O2SAT 94
== END 2017-07-20 18:36 | DRG 565 ==
LOC: NEPC 15:21 → NEDA 19:19 → NEPGCP 20:32 → OBSVTOIN 07-11 12:14 → N06B 07-11 15:05 → N06A 07-13 18:19
PROVIDERS: ADMIT Internal Medicine; ATTEND Internal Medicine
PROC: 30233N1 Transfusion of Nonautologous Red Blood Cells into Peripheral Vein, Percutaneous Approach (ICD-10-PCS; principal; 2017-07-11)
PROC: 0D568ZZ Destruction of Stomach, Via Natural or Artificial Opening Endoscopic (ICD-10-PCS; 2017-07-15)
PROC: 0DBH8ZX Excision of Cecum, Via Natural or Artificial Opening Endoscopic, Diagnostic (ICD-10-PCS; 2017-07-15 10:22)
DX: M25.462 Effusion, left knee (principal); I13.0 Hypertensive heart and chronic kidney disease with heart failure and stage 1 through stage 4 chronic kidney disease, or unspecified chronic kidney disease; K63.3 Ulcer of intestine; I42.9 Cardiomyopathy, unspecified; E11.22 Type 2 diabetes mellitus with diabetic chronic kidney disease; N18.3 Chronic kidney disease, stage 3 (moderate); I50.32 Chronic diastolic (congestive) heart failure; K92.2 Gastrointestinal hemorrhage, unspecified; L03.116 Cellulitis of left lower limb; I48.2 Chronic atrial fibrillation; S80.11XA Contusion of right lower leg, initial encounter; W01.0XXA Fall on same level from slipping, tripping and stumbling without subsequent striking against object, initial encounter; Y93.01 Activity, walking, marching and hiking; Y92.009 Unspecified place in unspecified non-institutional (private) residence as the place of occurrence of the external cause; M19.042 Primary osteoarthritis, left hand; M19.041 Primary osteoarthritis, right hand; M19.072 Primary osteoarthritis, left ankle and foot; M19.071 Primary osteoarthritis, right ankle and foot; F41.9 Anxiety disorder, unspecified; F32.9 Major depressive disorder, single episode, unspecified; J44.9 Chronic obstructive pulmonary disease, unspecified; H91.93 Unspecified hearing loss, bilateral; H93.12 Tinnitus, left ear; E78.5 Hyperlipidemia, unspecified; K44.9 Diaphragmatic hernia without obstruction or gangrene; G47.30 Sleep apnea, unspecified; D12.0 Benign neoplasm of cecum; I27.20 Pulmonary hypertension, unspecified; K64.8 Other hemorrhoids; K64.4 Residual hemorrhoidal skin tags; Z99.81 Dependence on supplemental oxygen; Z96.653 Presence of artificial knee joint, bilateral; K20.9 Esophagitis, unspecified; Z95.810 Presence of automatic (implantable) cardiac defibrillator; Z79.01 Long term (current) use of anticoagulants; Z79.4 Long term (current) use of insulin; D50.0 Iron deficiency anemia secondary to blood loss (chronic); Q27.33 Arteriovenous malformation of digestive system vessel; N40.0 Benign prostatic hyperplasia without lower urinary tract symptoms; R26.89 Other abnormalities of gait and mobility; Z86.010 Personal history of colon polyps; J30.9 Allergic rhinitis, unspecified; I25.10 Atherosclerotic heart disease of native coronary artery without angina pectoris; M10.9 Gout, unspecified; K22.70 Barrett's esophagus without dysplasia; Z85.828 Personal history of other malignant neoplasm of skin; E66.9 Obesity, unspecified; Z87.891 Personal history of nicotine dependence
CPT/HCPCS: 36430; 72170; 73564; 73590; 76937; 80048; 80053; 80162; 82550; 82728; 82948; 83036; 83540; 83550; 83735; 84100; 84439; 84443; 84466; 85014; 85018; 85025; 85027; 85610; 86850; 86900; 86901; 86920; 88305; 93005; 93971; G8987-GP; G8988-GP; J0696; J1756; J1815; J1940; J2270; J2405; J7030; J7050; P9016

== ENCOUNTER 2017-09-22 19:04 | Inpatient (IN) | payer MEDICARE ==
[~2017-09-22 19:04] MED LIST changes: +CEPH-460 PO; -CLOB-23 TOPICAL; -FERR240T8 PO; +FERR325T20 PO; -HYDR-3516 PO; +LORA-475 PO; -LORA2TAB7 PO; -POTA10TA2 PO; +TYLETAB34 PO; +WALKER/ADULT/FO1 MIS
[2017-09-22 19:14] VITALS: BP 127/60; PULSE 124; RESP 20; O2SAT 77
[2017-09-22 19:15] VITALS: BP 148/68; PULSE 73; RESP 20; O2SAT 77
[2017-09-22] MEDS ORDERED: DIFL150T PO (19:36)
[2017-09-22] MEDS ORDERED: AUGM500T7 PO (19:36)
[2017-09-22] MEDS ORDERED: AMIT25TA9 PO (19:36)
[2017-09-22] MEDS ORDERED: ACAR100T PO (19:36)
[2017-09-22] MEDS ORDERED: FLUT50SP EACH NARE (19:36)
[2017-09-22] MEDS ORDERED: SODIUM CHLORIDE 0.9% FLUSH 10 ML FLUSH IVF PRN (19:45)
[2017-09-22 20:05] LABS: AMORPHOUS SEDIMENT, URINE RARE; BILIRUBIN, URINE NEG (NEG); BLOOD, URINE LARGE (NEG); GLUCOSE,URINE NEG (NEG); KETONE, URINE NEG (NEG); NITRITE,URINE NEG (NEG); SQUAMOUS EPITHELIAL CELL URINE <1 /hpf (0-5); URINE COLOR YELLOW (YELLW/STRAW); URINE LEUKOCYTE ESTERASE NEG (NEG)
[2017-09-22 20:08] LABS: AUTOMATED NEUTROPHIL # 3.8 TH/MM3 (1.8-7.7); BASOPHIL # 0.1 TH/MM3 (0-0.2); EOSINOPHIL # 0.2 TH/MM3 (0-0.4); HEMATOCRIT 27.3 % (39.0-51.0); HEMOGLOBIN 8.8 GM/DL (13.0-17.0); LYMPH % 11.3 % (9.0-44.0); LYMPHOCYTE # 0.6 TH/MM3 (1.0-4.8); MEAN CORPUSCULAR HEMOGLOBIN 26.7 PG (27.0-34.0); MEAN CORPUSCULAR HGB CONC 32.2 % (32.0-36.0); MEAN PLATELET VOLUME 8.8 FL (7.0-11.0); MONO % 6.3 % (0.0-8.0); MONOCYTE # 0.3 TH/MM3 (0-0.9); NEUT % 76.4 % (16.0-70.0); PLATELET COUNT 254 TH/MM3 (150-450); RED BLOOD COUNT 3.28 MIL/MM3 (4.50-5.90); RED CELL DISTRIBUTION WIDTH 17.4 % (11.6-17.2)
[2017-09-22 20:10] LABS: INTERNATIONAL NORMALIZED RATIO 1.6 RATIO; PROTHROMBIN TIME - PATIENT 15.8 SEC (9.8-11.6)
[2017-09-22 20:25] LABS: AST (GOT) 15 U/L (15-37); BICARBONATE 38.4 MEQ/L (21.0-32.0); BLOOD UREA NITROGEN 26 MG/DL (7-18); CALCIUM 9.2 MG/DL (8.5-10.1); CHLORIDE 95 MEQ/L (98-107); CREATININE 1.52 MG/DL (0.60-1.30); GLOMERULAR FILTRATION RATE 44 ML/MIN (>89); GLUCOSE,RANDOM 160 MG/DL (74-106); SODIUM (NA) 139 MEQ/L (136-145)
[2017-09-22 20:26] LABS: ALT (GPT) 15 U/L (12-78)
--- NOTE | 2017-09-22 20:27 | RADRPT ---
EXAM DATE/TIME: 09/22/2017 19:48 [facility] COMPARISON: CHEST SINGLE AP, June 08, 2017, 13:32. INDICATIONS : Short of breath. MEDICAL HISTORY : Congestive heart failure. Hypercholesterolemia. Hernia, hiatal. Afib. HTN. COPD.BPH. Arthritis. Diabe maik. Anemia. Depression. Anxiety. Anticoagulant therapy, Coumadin. SURGICAL HISTORY : Pacemaker. Appendectomy. Cholecystectomy. Bilateral cataracts. Hernia repair. Bilateral TKR. ENCOUNTER: Initial ACUITY: 1 day PAIN SCORE: 0/10 LOCATION: Bilateral chest FINDINGS: The heart is enlarged. Bibasilar patchiness is noted consistent with probable pneumonia. Small left p leural effusion is noted. Left subclavian multilead pacemaker is stable. No pneumothorax is noted. CONCLUSION: Bibasilar patchiness consistent with probable pneumonia. Clinical correlation is recommended. Stable small left pleural effusion. Stable cardiomegaly. Isidro Kamara MD on September 22, 2017 at 20:23 Board Certified Radiologist. This report was verified electronically.
[2017-09-22 20:30] LABS: ALKALINE PHOSPHATASE 62 U/L (45-117); TOTAL BILIRUBIN ADULT 0.7 MG/DL (0.2-1.0); TOTAL PROTEIN 6.8 GM/DL (6.4-8.2); TROPONIN I 0.04 NG/ML (0.02-0.05)
--- NOTE | 2017-09-22 20:45 | RADRPT ---
EXAM DATE/TIME: 09/22/2017 20:00 [facility] COMPARISON: No previous studies available for comparison. INDICATIONS : Abdominal pain and shortness of breath. ORAL CONTRAST: No oral contrast ingested. RADIATION DOSE: 15.39 CTDIvol (mGy) MEDICAL HISTORY : Cardiovascular disease. Hypertension. Diabetes mellitus type 2. SURGICAL HISTORY : Cholecystectomy. Appendectomy.Pacemaker. ENCOUNTER: Initial ACUITY: 1 day PAIN SCALE: 5/10 LOCATION: abdomen TECHNIQUE: Volumetric scanning of the abdomen and pelvis was performed. Using automated exposure control and ad justment of the mA and/or kV according to patient size, radiation dose was kept as low as reasonably achievable to obtain optimal diagnostic quality images. DICOM format image data is available electro nically for review and comparison. FINDINGS: Small bilateral pleural effusions are noted. The heart is enlarged. Bibasilar atelectasis and scarrin g is noted. Evaluation of the solid organs of the abdomen is limited by the lack of intravenous contr ast. Mild hepatosplenomegaly is noted. Minimal ascites is noted within the abdomen or pelvis. Patient is status post cholecystectomy. Multiple cysts are noted throughout the kidneys bilaterally. There a re high density lesions within the kidneys consistent with possible complex cysts. Solid lesions lilia ot be ruled out without intravenous contrast. There is a small abdominal aortic aneurysm within the m id abdominal aorta with focal dissection which measures 3 cm in greatest dimension. Uncomplicated col onic diverticulosis is noted. The prostate gland is enlarged. The urinary bladder is distended and it s wall is mildly thickened. Degenerative changes and scoliosis of lumbar spine are noted. CONCLUSION: 1. Small bilateral pleural effusions. 2. Cardiomegaly. 3. Mild hepatosplenomegaly. 4. Multiple simple and complex renal cysts. 5. Uncomplicated colonic diverticulosis. 6. Minimal ascites. 7. 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 8. Degenerative changes and scoliosis of the lumbar spine. 9. Enlarged prostate. Isidro Kamara MD on September 22, 2017 at 20:35 Board Certified Radiologist. This report was verified electronically.
[2017-09-22 21:00] VITALS: BP_SYST 137; BP_SYST 142; BP_DIAS 70; BP_DIAS 80; PULSE 69; RESP 18; O2SAT 98
[2017-09-22] MEDS ORDERED: AZITHROMYCIN INJ 500 MG in SODIUM CHLOR 0.9% 250 ML INJ 250 ML IV ONE (21:00)
[2017-09-22] MEDS ORDERED: CEFEPIME INJ 1,000 MG in SODIUM CHLORIDE 0.9% INJ 100 ML IV ONE (21:00)
--- NOTE | 2017-09-22 21:25 | PD ---
HPI Chief Complaint: Respiratory Distress Time Seen by Provider: 19:23 Travel History International Travel<30 days: No Contact w/Intl Traveler<30days: No Traveled to known affect area: No History of Present Illness HPI Patient is an 81-year-old male who comes in with complaints of blood in his stool. Patient states that he has had blood in his stool for the past 4 days. 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 He is on Coumadin for A. fib. He says that he has an appointment with hematology on Tuesday. He also reports not feeling well for the past few days, but is unable to really describe what he has been feeling. He denies chest pain. He says he has some lower abdominal pain. He denies nausea or vomiting or fevers. He wears home oxygen 24 hrs per day at 4L. He is currently taking Coumadin, but did not take it last night. Nothing makes his symptoms better. 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) Endocrine: Yes Gastrointestinal Disorders: Yes GERD: No Glaucoma: No Genitourinary: Yes (BPH) Headaches: Yes (R/T SINUSITIS) Hepatitis: No Hiatal Hernia: Yes Hypertension: Yes Immune Disorder: No Implanted Vascular Access Dvce: Yes Kidney Stones: No Musculoskeletal: Yes Neurologic: Yes Psychiatric: Yes Reproductive: No Respiratory: Yes Integumentary: Yes Immunizations Current: No Migraines: No Radiation Therapy: No Renal Failure: No Seizures: No Sickle Cell Disease: No Sleep Apnea: Yes (CPAP AT NIGHT AT TIMES) Thyroid Disease: No Ulcer: No Tetanus Vaccination: < 5 Years Influenza Vaccination: Yes Past Surgical History Abdominal Surgery: Yes (HERNIA REPAIR) AICD: Yes Appendectomy: Yes Arteriovenous Shunt: No Body Medical Devices: KNEE REPLACEMENT LEFT AND RIGHT, AICD Cardiac Surgery: Yes (PACEMAKER/DEFIB) Cholecystectomy: Yes Ear Surgery: No Endocrine Surgery: No Eye Surgery: Yes (L & R EYE CATARACTS) Genitourinary Surgery: No Gynecologic Surgery: No Insulin Pump: No Joint Replacement: Yes (BILATERAL TKR) Neurologic Surgery: No Oral Surgery: No Pacemaker: Yes (REPLACED IN NOVEMBER 2016) Thoracic Surgery: No Other Surgery: Yes (pacemaker placement, herniated appendix) Social History Alcohol Use: No Tobacco Use: No Substance Use: No Allergies-Medications (Allergen,Severity, Reaction): Coded Allergies: MRI PRECAUTION (Verified Allergy, Severe, 07/10/17) Uncoded Allergies: STEROIDS (Adverse Reaction, Mild, 01/10/17) ELEVATED BLOOD SUGAR Reported Meds & Prescriptions Reported Meds & Active Scripts Active Keflex (Cephalexin) 500 Mg Capsule 500 Mg PO Q6H Ativan (Lorazepam) 2 Mg Tab 2 Mg PO Q6H PRN Tylenol-Codeine #3 (Acetaminophen-Codeine) 300-30 mg Tab 1 Tab PO Q4H PRN DO NOT USE THIS MEDICINE IF YOU WILL DRIVE A CAR OR USE A MACHINE, ONLY USE IT WHEN RESTING AT HOME. Warfarin 5 Mg Tab 5 Mg PO DAILY Continue Warfarin 5 mg by mouth daily Daily PT/INR INR Goal 2 to 3 Hold Warfarin if INR in 3 or over Titrate to desided INR goal by Attending physician at [facility] Walker/Adult/Folding (Device) 1 Mis Mis Ea .ROUTE DIRECTED Oxygen tank (Oxygen) 1 Ea Tank 2 Liter JAKE.CANULA CONTINUOUS Oxygen Concentrator Portable Gaseous 2 L/min via Nasal Cannula Continuous For 99 months Digoxin 0.125 Mg Tab 0.125 Mg PO DAILY Reported Augmentin (Amoxicillin-Clavulanate) 500-125 mg Tab 500 Mg PO BID Diflucan (Fluconazole) 150 Mg Tab 150 Mg PO ONCE Fluticasone Nasal [place] 50 Mcg/Act Naspr 50 Mcg EACH NARE DAILY 50 mcg/spray Amitriptyline (Amitriptyline HCl) 25 Mg Tab 25 Mg PO DAILY Acarbose 100 Mg Tab 100 Mg PO TID Take with first bite of meal. Lantus Inj (Insulin Glargine) 1,000 Unit/10 Ml Vial 15 Units SQ HS Duoneb (Ipratropium-Albuterol Neb) 0.5-2.5 Mg/3 Ml Neb 3 Ml NEB TID Senna S (Sennosides-Docusate Sodium) 8.6-50 Mg Tab 1 Tab PO DAILY PRN Tylenol (Acetaminophen) 325 Mg Tab 650 Mg PO Q6H PRN Vitamin D3 (Cholecalciferol) 5,000 Unit Cap 5,000 Units PO HS Amitriptyline (Amitriptyline HCl) 50 Mg Tab 50 Mg PO HS Trazodone (Trazodone HCl) 50 Mg Tab 50 Mg PO HS Gabapentin 300 Mg Cap 600 Mg PO BID Vitamin B12 (Cyanocobalamin) 100 Mcg Tab 100 Mcg PO DAILY Omeprazole 40 Mg Cap 40 Mg PO BID Atorvastatin (Atorvastatin Calcium) 40 Mg Tab 40 Mg PO DAILY Torsemide 20 Mg Tab 40 Mg PO BID Lisinopril 20 Mg Tab 20 Mg PO DAILY Bystolic (Nebivolol) 10 Mg Tab 10 Mg PO BID Finasteride 5 Mg Tab 5 Mg PO HS Do not crush. Review of Systems Except as stated in HPI: all other systems reviewed are Neg General / Constitutional: No: Fever, Chills HENT: No: Headaches, Lightheadedness Cardiovascular: No: Chest Pain or Discomfort Respiratory: No: Shortness of Breath Gastrointestinal: Positive: Abdominal Pain, Hematochezia, No: Nausea, Vomiting Genitourinary: No: Dysuria Musculoskeletal: No: Myalgias, Edema Skin: No Rash, No Itching, No Change in Pigmentation Neurologic: Positive: Weakness Physical Exam Narrative GENERAL: Awake and alert, in no acute distress. SKIN: Focused skin assessment warm/dry. No wounds or signs of infection. HEAD: Atraumatic. Normocephalic. EYES: Pupils equal and round. No scleral icterus. ENT: Mucous membranes pink and moist. NECK: Trachea midline. No JVD. CARDIOVASCULAR: Regular rate and rhythm. No murmur appreciated. RESPIRATORY: No accessory muscle use. Clear to auscultation. Breath sounds equal bilaterally. GASTROINTESTINAL: Abdomen soft, non-tender, nondistended. MUSCULOSKELETAL: No obvious deformities. No clubbing. No cyanosis. bilateral 2 + edema of the lower extremities. NEUROLOGICAL: Awake and alert. No obvious cranial nerve deficits. Motor grossly within normal limits. Normal speech. PSYCHIATRIC: Appropriate mood and affect; insight and judgment normal. Data Data Last Documented VS Vital Signs Date Time Temp Pulse Resp B/P (MAP) Pulse Ox O2 Delivery O2 Flow Rate FiO2 09/22/17 21:00 69 18 142/70 (94) 98 Nasal Cannula 4.00 137/80 (99) Orders Orders Complete Blood Count With Diff (2/1/18 19:39) Comprehensive Metabolic Panel (09/22/17 19:39) B-Type Natriuretic Peptide (09/22/17 19:39) Act Partial Throm Time (Ptt) (09/22/17 19:39) Prothrombin Time / Inr (Pt) (09/22/17 19:39) Troponin I (09/22/17 19:39) Urinalysis - C+S If Indicated (09/22/17 19:39) Influenzae A/B Antigen (09/22/17 19:39) Iv Access Insert/Monitor (09/22/17 19:39) Ecg Monitoring (09/22/17 19:39) Oximetry (09/22/17 19:39) Oxygen Administration (09/22/17 19:39) Chest, Single Ap (09/22/17 19:39) Sodium Chloride 0.9% Flush (Ns Flush) (09/22/17 19:45) Type And Screen (09/22/17 19:39) Ct Abd/Pel W/O Iv Contrast (09/22/17 ) Electrocardiogram (09/22/17 19:22) Cefepime Inj (Maxipime Inj) (09/22/17 21:00) Azithromycin Inj (Zithromax Inj) (09/22/17 21:00) Admit Order (Ed Use Only) (09/22/17 ) Labs Laboratory Tests Test 09/22/17 19:40 09/22/17 19:45 White Blood Count 5.0 TH/MM3 Red Blood Count 3.28 MIL/MM3 Hemoglobin 8.8 GM/DL Hematocrit 27.3 % Mean Corpuscular Volume 83.0 FL Mean Corpuscular Hemoglobin 26.7 PG Mean Corpuscular Hemoglobin Concent 32.2 % Red Cell Distribution Width 17.4 % Platelet Count 254 TH/MM3 Mean Platelet Volume 8.8 FL Neutrophils (%) (Auto) 76.4 % Lymphocytes (%) (Auto) 11.3 % Monocytes (%) (Auto) 6.3 % Eosinophils (%) (Auto) 4.0 % Basophils (%) (Auto) 2.0 % Neutrophils # (Auto) 3.8 TH/MM3 Lymphocytes # (Auto) 0.6 TH/MM3 Monocytes # (Auto) 0.3 TH/MM3 Eosinophils # (Auto) 0.2 TH/MM3 Basophils # (Auto) 0.1 TH/MM3 CBC Comment DIFF FINAL Differential Comment Prothrombin Time 15.8 SEC Prothromb Time International Ratio 1.6 RATIO Activated Partial Thromboplast Time 31.7 SEC Blood Urea Nitrogen 26 MG/DL Creatinine 1.52 MG/DL Random Glucose 160 MG/DL Total Protein 6.8 GM/DL Albumin 3.0 GM/DL Calcium Level 9.2 MG/DL Alkaline Phosphatase 62 U/L Aspartate Amino Transf (AST/SGOT) 15 U/L Alanine Aminotransferase (ALT/SGPT) 15 U/L Total Bilirubin 0.7 MG/DL Sodium Level 139 MEQ/L Potassium Level 4.0 MEQ/L Chloride Level 95 MEQ/L Carbon Dioxide Level 38.4 MEQ/L Anion Gap 6 MEQ/L Estimat Glomerular Filtration Rate 44 ML/MIN Troponin I 0.04 NG/ML B-Type Natriuretic Peptide 659 PG/ML Urine Color YELLOW Urine Turbidity CLEAR Urine pH 7.0 Urine Specific [place] 1.011 Urine Protein 300 mg/dL Urine Glucose (UA) NEG mg/dL Urine Ketones NEG mg/dL Urine Occult Blood LARGE Urine Nitrite NEG Urine Bilirubin NEG Urine Urobilinogen LESS THAN 2.0 MG/DL Urine Leukocyte Esterase NEG Urine RBC 39 /hpf Urine WBC 2 /hpf Urine Squamous Epithelial Cells <1 /hpf Urine Amorphous Sediment RARE Microscopic Urinalysis Comment CULT NOT INDICATED MDM Medical Decision Making Medical Screen Exam Complete: Yes Emergency Medical Condition: Yes Medical Record Reviewed: Yes Interpretation(s) ECG shows paced rhythm Differential Diagnosis GI bleed vs diverticulosis vs pneumonia vs sepsis vs anemia Narrative Course Patient is a 81 year old male who comes in complaining of blood in his stool. Exam shows brown stool positive for occult blood. IV established, labs sent. Labs shows Hgb 8.8. CXR concerning for pneumonia. Last 24 hours Impressions Chest X-Ray 09/22/17 1939 Signed Impressions: Service Date/Time: September 19:48 - CONCLUSION: Bibasilar patchiness consistent with probable pneumonia. Clinical correlation is recommended. Stable small left pleural effusion. Stable cardiomegaly. Isidro Kamara MD Abdomen/Pelvis CT 09/22/17 0000 Signed Impressions: Service Date/Time: September 20:00 - CONCLUSION: 1. Small bilateral pleural effusions. 2. Cardiomegaly. 3. Mild hepatosplenomegaly. 4. Multiple simple and complex renal cysts. 5. Uncomplicated colonic diverticulosis. 6. Minimal ascites. 7. 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 8. Degenerative changes and scoliosis of the lumbar spine. 9. Enlarged prostate. Isidro Kamara MD Per Dr. Kamara, the AAA is chronic and unchanged. Given antibiotics. INR 1.6, will not reverse coumadin at this time. Admitted for further management. Diagnosis Primary Impression: GI bleed Qualified Codes: K92.2 - Gastrointestinal hemorrhage, unspecified Additional Impression: Pneumonia Qualified Codes: J18.1 - Lobar pneumonia, unspecified organism Admitting Information Admitting Physician Requests: it Carolina Pan MD Sep 22, 2017 21:25
[2017-09-22 22:30] VITALS: BP 141/75; PULSE 70; RESP 16; O2SAT 99
[2017-09-22] MEDS ORDERED: LACTULOSE SYRUP 20 GM/30 ML CUP PO PRN (23:00)
[2017-09-22] MEDS ORDERED: SODIUM CHLORIDE 0.9% FLUSH 10 ML FLUSH IV FLUSH PRN (23:00)
[2017-09-22] MEDS ORDERED: SENNOSIDES 8.6 MG TAB PO PRN (23:00)
[2017-09-22] MEDS ORDERED: MAGNESIUM HYDROXIDE SUSP 30 ML CUP PO PRN (23:00)
[2017-09-22] MEDS ORDERED: NALOXONE HCL 0.4 MG/ML AMP IV PUSH PRN (23:00)
[2017-09-22] MEDS ORDERED: ONDANSETRON HCL 4 MG/2 ML VIAL IVP PRN (23:00)
[2017-09-22] MEDS ORDERED: BISACODYL 10 MG SUPP RECTAL PRN (23:00)
[2017-09-22] MEDS ORDERED: ACETAMINOPHEN 325 MG TAB PO PRN (23:00)
[2017-09-22 23:33] LABS: HEMATOCRIT 24.7 % (39.0-51.0); HEMOGLOBIN 7.8 GM/DL (13.0-17.0)
[2017-09-22 23:38] VITALS: BP 132/70; PULSE 80; RESP 17; TEMP 98; O2SAT 97
[2017-09-23] VITALS (8 sets, daily range): BP systolic 99–131; BP diastolic 51–66; PULSE 69–73; RESP 16–18; TEMP 97.1–98.7; O2SAT 92–98
[2017-09-23] MEDS ORDERED: RESP: ALBUTEROL 2.5 MG/IPRATROPIUM 0.5 MG NEB (PRN) NEB (00:45)
--- NOTE | 2017-09-23 01:05 | HHI.HP ---
HPI Service [facility] Primary Care Physician Phyllis Moran MD Admission Diagnosis GI bleed, pneumonia Diagnoses: Travel History International Travel<30 Days: No Contact w/Intl Traveler <30 Da: No Traveled to Known Affected Are: No History of Present Illness 81-year-old male with a past medical history significant for anemia, insulin- dependent diabetes mellitus, atrial fibrillation status post AICD placement, anticoagulated on Coumadin, hypertension and hyperlipidemia presents to the emergency department after told by his primary care physician to seek further evaluation. The patient reports that his PCP was confused and believed that he had symptoms of dizziness and lightheadedness when he in fact did not. Upon arrival to the ED the patient endorsed black, bloody stools 1 approximately 3 weeks ago. He was found to be Hemoccult positive in the emergency department. He also was found to have pneumonia on chest x-ray. He denies shortness of breath, cough, fever/chills. Denies nausea/vomiting/diarrhea. Review of Systems Except as stated in HPI: all other systems reviewed are Neg Past Family Social History Past Medical History Anemia Insulin-dependent diabetes mellitus Atrial fibrillation anticoagulated on Coumadin Hypertension Hyperlipidemia Past Surgical History AICD placement Appendectomy Cholecystectomy Reported Medications Reported Meds & Active Scripts Active Keflex (Cephalexin) 500 Mg Capsule 500 Mg PO Q6H Ativan (Lorazepam) 2 Mg Tab 2 Mg PO Q6H PRN Tylenol-Codeine #3 (Acetaminophen-Codeine) 300-30 mg Tab 1 Tab PO Q4H PRN DO NOT USE THIS MEDICINE IF YOU WILL DRIVE A CAR OR USE A MACHINE, ONLY USE IT WHEN RESTING AT HOME. Warfarin 5 Mg Tab 5 Mg PO DAILY Continue Warfarin 5 mg by mouth daily Daily PT/INR INR Goal 2 to 3 Hold Warfarin if INR in 3 or over Titrate to desided INR goal by Attending physician at [facility] Walker/Adult/Folding (Device) 1 Mis Mis Ea .ROUTE DIRECTED Oxygen tank (Oxygen) 1 Ea Tank 2 Liter JAKE.CANULA CONTINUOUS Oxygen Concentrator Portable Gaseous 2 L/min via Nasal Cannula Continuous For 99 months Digoxin 0.125 Mg Tab 0.125 Mg PO DAILY Reported Augmentin (Amoxicillin-Clavulanate) 500-125 mg Tab 500 Mg PO BID Diflucan (Fluconazole) 150 Mg Tab 150 Mg PO ONCE Fluticasone Nasal [place] 50 Mcg/Act Naspr 50 Mcg EACH NARE DAILY 50 mcg/spray Amitriptyline (Amitriptyline HCl) 25 Mg Tab 25 Mg PO DAILY Acarbose 100 Mg Tab 100 Mg PO TID Take with first bite of meal. Lantus Inj (Insulin Glargine) 1,000 Unit/10 Ml Vial 15 Units SQ HS Duoneb (Ipratropium-Albuterol Neb) 0.5-2.5 Mg/3 Ml Neb 3 Ml NEB TID Senna S (Sennosides-Docusate Sodium) 8.6-50 Mg Tab 1 Tab PO DAILY PRN Tylenol (Acetaminophen) 325 Mg Tab 650 Mg PO Q6H PRN Vitamin D3 (Cholecalciferol) 5,000 Unit Cap 5,000 Units PO HS Amitriptyline (Amitriptyline HCl) 50 Mg Tab 50 Mg PO HS Trazodone (Trazodone HCl) 50 Mg Tab 50 Mg PO HS Gabapentin 300 Mg Cap 600 Mg PO BID Vitamin B12 (Cyanocobalamin) 100 Mcg Tab 100 Mcg PO DAILY Omeprazole 40 Mg Cap 40 Mg PO BID Atorvastatin (Atorvastatin Calcium) 40 Mg Tab 40 Mg PO DAILY Torsemide 20 Mg Tab 40 Mg PO BID Lisinopril 20 Mg Tab 20 Mg PO DAILY Bystolic (Nebivolol) 10 Mg Tab 10 Mg PO BID Finasteride 5 Mg Tab 5 Mg PO HS Do not crush. Allergies: Coded Allergies: MRI PRECAUTION (Verified Allergy, Severe, 07/10/17) Uncoded Allergies: STEROIDS (Adverse Reaction, Mild, 01/10/17) ELEVATED BLOOD SUGAR Family History Patient does not know Social History Quit smoking 30 years ago. Denies alcohol, illicit drugs. Physical Exam Vital Signs Vital Signs Date Time Temp Pulse Resp B/P (MAP) Pulse Ox O2 Delivery O2 Flow Rate FiO2 09/22/17 23:38 98.0 80 17 132/70 (90) 97 09/22/17 23:10 09/22/17 22:30 70 16 141/75 (97) 99 Nasal Cannula 4.00 09/22/17 21:00 69 18 142/70 (94) 98 Nasal Cannula 4.00 137/80 (99) 09/22/17 19:16 96 Nasal Cannula 4.00 09/22/17 19:15 73 20 148/68 (94) 77 09/22/17 19:15 77 Room Air 09/22/17 19:14 124 20 127/60 (82) 77 Room Air Physical Exam GENERAL: This is a well-nourished, well-developed patient, in no apparent distress. SKIN: No rashes, ecchymoses or lesions. Cool and dry. Abrasion dorsum of left foot and lateral aspect of left calf. HEAD: Atraumatic. Normocephalic. No temporal or scalp tenderness. EYES: Pupils equal round and reactive. Extraocular motions intact. No scleral icterus. No injection or drainage. ENT: Nose without bleeding, purulent drainage or septal hematoma. Throat without erythema, tonsillar hypertrophy or exudate. Uvula midline. Airway patent. NECK: Trachea midline. No JVD or lymphadenopathy. Supple, nontender, no meningeal signs. CARDIOVASCULAR: Regular rate and rhythm without murmurs, gallops, or rubs. RESPIRATORY: Bilateral crackles/wheezes GASTROINTESTINAL: Abdomen soft, non-tender, nondistended. No hepato-splenomegaly , or palpable masses. No guarding. MUSCULOSKELETAL: Bilateral 2+ edema. No calf tenderness. NEUROLOGICAL: Awake and alert. Cranial nerves II through XII intact. Motor and sensory grossly within normal limits. Five out of 5 muscle strength in all muscle groups. Normal speech. Laboratory Laboratory Tests Test 09/22/17 19:40 09/22/17 19:45 09/22/17 23:00 White Blood Count 5.0 Red Blood Count 3.28 Hemoglobin 8.8 7.8 Hematocrit 27.3 24.7 Mean Corpuscular Volume 83.0 Mean Corpuscular Hemoglobin 26.7 Mean Corpuscular Hemoglobin Concent 32.2 Red Cell Distribution Width 17.4 Platelet Count 254 Mean Platelet Volume 8.8 Neutrophils (%) (Auto) 76.4 Lymphocytes (%) (Auto) 11.3 Monocytes (%) (Auto) 6.3 Eosinophils (%) (Auto) 4.0 Basophils (%) (Auto) 2.0 Neutrophils # (Auto) 3.8 Lymphocytes # (Auto) 0.6 Monocytes # (Auto) 0.3 Eosinophils # (Auto) 0.2 Basophils # (Auto) 0.1 CBC Comment DIFF FINAL Differential Comment Prothrombin Time 15.8 Prothromb Time International Ratio 1.6 Activated Partial Thromboplast Time 31.7 Blood Urea Nitrogen 26 Creatinine 1.52 Random Glucose 160 Total Protein 6.8 Albumin 3.0 Calcium Level 9.2 Alkaline Phosphatase 62 Aspartate Amino Transf (AST/SGOT) 15 Alanine Aminotransferase (ALT/SGPT) 15 Total Bilirubin 0.7 Sodium Level 139 Potassium Level 4.0 Chloride Level 95 Carbon Dioxide Level 38.4 Anion Gap 6 Estimat Glomerular Filtration Rate 44 Troponin I 0.04 B-Type Natriuretic Peptide 659 Urine Color YELLOW Urine Turbidity CLEAR Urine pH 7.0 Urine Specific [place] 1.011 Urine Protein 300 Urine Glucose (UA) NEG Urine Ketones NEG Urine Occult Blood LARGE Urine Nitrite NEG Urine Bilirubin NEG Urine Urobilinogen LESS THAN 2.0 Urine Leukocyte Esterase NEG Urine RBC 39 Urine WBC 2 Urine Squamous Epithelial Cells <1 Urine Amorphous Sediment RARE Microscopic Urinalysis Comment CULT NOT INDICATED Date/Time Source Procedure Growth Status 09/22/17 19:40 Nasal Washing Influenza Types A,B Antigen (NELSON) - Final NEGATIVE FOR FLU A AND B ANTIGEN.... Complete Result Diagram: 09/22/17 23009/22/17 194 Caprini VTE Risk Assessment Caprini VTE Risk Assessment: Mod/High Risk (score >= 2) Caprini Risk Assessment Model Point Value = 1 Point Value = 2 Point Value = 3 Point Value = 5 Age 41-60 Minor surgery BMI > 25 kg/m2 Swollen legs Varicose veins or History of unexplained or recurrent spontaneous Oral contraceptives or hormone replacement Sepsis (< 1 month) Serious lung disease, including pneumonia (< 1 month) Abnormal pulmonary function Acute myocardial infarction Congestive heart failure (< 1 month) History of inflammatory bowel disease Medical patient at bed rest Age 61-74 Arthroscopic surgery Major open surgery (> 45 min) Laparoscopic surgery (> 45 min) Malignancy Confined to bed (> 72 hours) Immobilizing plaster cast Central venous access Age >= 75 History of VTE Family history of VTE Factor V Leiden Prothrombin [id number] Lupus anticoagulant Anticardiolipin antibodies Elevated serum homocysteine Heparin-induced thrombocytopenia Other congenital or acquired thrombophilia Stroke (< 1 month) Elective arthroplasty Hip, pelvis, or leg fracture Acute spinal cord injury (< 1 month) Prophylaxis Regimen Total Risk Factor Score Risk Level Prophylaxis Regimen 0-1 Low Early ambulation 2 Moderate Order ONE of the following: *Sequential Compression Device (SCD) *Heparin 5000 units SQ BID 3-4 Higher Order ONE of the following medications: *Heparin 5000 units SQ TID *Enoxaparin/Lovenox 40 mg SQ daily (WT < 150 kg, CrCl > 30 mL/min) *Enoxaparin/Lovenox 30 mg SQ daily (WT < 150 kg, CrCl > 10-29 mL/min) *Enoxaparin/Lovenox 30 mg SQ BID (WT < 150 kg, CrCl > 30 mL/min) AND/OR *Sequential Compression Device (SCD) 5 or more Highest Order ONE of the following medications: *Heparin 5000 units SQ TID (Preferred with Epidurals) *Enoxaparin/Lovenox 40 mg SQ daily (WT < 150 kg, CrCl > 30 mL/min) *Enoxaparin/Lovenox 30 mg SQ daily (WT < 150 kg, CrCl > 10-29 mL/min) *Enoxaparin/Lovenox 30 mg SQ BID (WT < 150 kg, CrCl > 30 mL/min) AND *Sequential Compression Device (SCD) Assessment and Plan Assessment and Plan Assessment/plan: 1. Pneumonia Chest x-ray significant for bibasilar patchiness, personally reviewed Azithromycin/Rocephin Duo nebs 2. GI bleed Patient with history of black, tarry stools Hemoccult-positive in the ED H&H, 8.8/27.3 Transfuse when necessary Serial H&H IV Protonix Gastroesophageal urology consulted, appreciate assistance 3. Atrial fibrillation Holding home Coumadin for GI bleed INR subtherapeutic at 1.6 Continue home medications 4. Insulin-dependent diabetes mellitus Holding home Lantus Sliding scale insulin Monitor blood 5. Hypertension/hyperlipidemia Continue home medications 6. 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 Chronic kidney disease Creatinine 1.52, at baseline Monitor renal function Avoid nephrotoxic agents FEN Clear liquid diet Electrolytes: Monitor and replete when necessary Holding pharmacologic anticoagulation for GI bleed Physician Certification 2 Midnight Certification Type: Admission for Inpatient Services Order for Inpatient Services The services are ordered in accordance with Medicare regulations or non- Medicare payer requirements, as applicable. In the case of services not specified as inpatient-only, they are appropriately provided as inpatient services in accordance with the 2-midnight benchmark. Estimated LOS (days): 2 2 days is the estimated time the patient will need to remain in the hospital, assuming treatment plan goals are met and no additional complications. Post-Hospital Plan: Not yet determined Meeta Koch MD Sep 23, 2017 01:05
[2017-09-23] MEDS: PANTOPRAZOLE SODIUM 40 MG VIAL IV PUSH SCH ×2 (01:28→22:23)
[2017-09-23] MEDS: AMITRIPTYLINE HCL 50 MG TAB PO SCH ×2 (01:28→22:24)
[2017-09-23] MEDS: FINASTERIDE 5 MG TAB PO SCH ×2 (01:29→22:23)
[2017-09-23] MEDS: NEBIVOLOL 10 MG TAB PO SCH ×3 (01:29→22:24)
[2017-09-23] MEDS: GABAPENTIN 300 MG CAP PO SCH ×3 (01:29→22:24)
[2017-09-23] MEDS: TORSEMIDE 20 MG TAB PO SCH ×3 (01:29→22:24)
[2017-09-23] MEDS: traZODone HCL 50 MG TAB PO SCH ×2 (01:29→22:23)
[2017-09-23] MEDS ORDERED: CEFEPIME INJ 1,000 MG in SODIUM CHLORIDE 0.9% INJ 100 ML IV SCH (05:00)
[2017-09-23 05:32] LABS: AUTOMATED NEUTROPHIL # 2.4 TH/MM3 (1.8-7.7); BASOPHIL # 0.1 TH/MM3 (0-0.2); BASOPHIL % 1.7 % (0.0-2.0); EOSINOPHIL # 0.2 TH/MM3 (0-0.4); EOSINOPHIL % 6.2 % (0.0-4.0); HEMATOCRIT 25.1 % (39.0-51.0); HEMOGLOBIN 8.1 GM/DL (13.0-17.0); LYMPH % 11.2 % (9.0-44.0); LYMPHOCYTE # 0.4 TH/MM3 (1.0-4.8); MEAN CELL VOLUME 83.7 FL (80.0-100.0); MEAN CORPUSCULAR HEMOGLOBIN 26.8 PG (27.0-34.0); MEAN CORPUSCULAR HGB CONC 32.1 % (32.0-36.0); MEAN PLATELET VOLUME 8.2 FL (7.0-11.0); MONO % 8.4 % (0.0-8.0); MONOCYTE # 0.3 TH/MM3 (0-0.9); NEUT % 72.5 % (16.0-70.0); PLATELET COUNT 183 TH/MM3 (150-450); RED CELL DISTRIBUTION WIDTH 17.6 % (11.6-17.2); WHITE BLOOD COUNT 3.3 TH/MM3 (4.0-11.0)
[2017-09-23 05:42] LABS: BICARBONATE 38.2 MEQ/L (21.0-32.0); CALCIUM 8.5 MG/DL (8.5-10.1); CREATININE 1.3 MG/DL (0.60-1.30)
--- NOTE | 2017-09-23 08:43 | PD.CONS ---
HPI History of Present Illness This is a 81 year old male with AF s/p AICD on coumadin, IDDM, hx GIB who was referred to ER by his PCP for anemia. His hgb was 8.8 on admission which is not far from his baseline. He endorses fatigue for the last 3 weeks. he was found to have Pneumonia. 4 weeks ago he had an episode of black tarry stool which has since resolved and now his stool is brown. Stool was heme pos in the ER. Denies red blood in stool, n/v, abd pain. Denies use NSAIDs but is on coumadin. 07/15/17 he had enteroscopy which found esophagitis, AVM antrum s/p APC. 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 His last colonoscopy was 01/26/17 and the prep was poor, found stool in colon and polyp. He sees a armament aircraft mechanic for regular blood and iron transfusions, and tells me he does not want any procedures b/c he is going to see "the blood doctor and he's going to fix it." Pt is unreliable historian. (Noemy Chavis) PFSH Past Medical History Anemia Insulin-dependent diabetes mellitus Atrial fibrillation anticoagulated on Coumadin Hypertension Hyperlipidemia Past Surgical History AICD placement Appendectomy Cholecystectomy (Noemy Chavis) Coded Allergies: MRI PRECAUTION (Verified Allergy, Severe, 07/10/17) Uncoded Allergies: STEROIDS (Adverse Reaction, Mild, 01/10/17) ELEVATED BLOOD SUGAR Family History Patient does not know Social History Quit smoking 30 years ago. Denies alcohol, illicit drugs. (Noemy Chavis) Review of Systems Constitutional: DENIES: Fever Endocrine: DENIES: Polydipsia Eyes: DENIES: Blurred vision Ears, nose, mouth, throat: DENIES: Hearing loss Respiratory: DENIES: Cough, Shortness of breath Cardiovascular: DENIES: Chest pain Gastrointestinal: DENIES: Abdominal pain, Black stools, Bloody stools, Nausea, Vomiting, Hematemesis Genitourinary: DENIES: Hematuria Musculoskeletal: DENIES: Joint Swelling Integumentary: DENIES: Jaundice Neurologic: DENIES: Headache Psychiatric: DENIES: Confusion (Noemy Chavis) GI Exam Vitals I&O Vital Signs Date Time Temp Pulse Resp B/P (MAP) Pulse Ox O2 Delivery O2 Flow Rate FiO2 09/23/17 08:09 69 09/23/17 07:27 98.7 70 18 131/60 (83) 97 09/23/17 05:53 Nasal Cannula 4.00 09/23/17 04:25 73 09/23/17 03:54 98.5 70 16 128/66 (86) 97 09/22/17 23:38 98.0 80 17 132/70 (90) 97 09/22/17 23:10 09/22/17 22:30 70 16 141/75 (97) 99 Nasal Cannula 4.00 09/22/17 21:00 69 18 142/70 (94) 98 Nasal Cannula 4.00 137/80 (99) 09/22/17 19:16 96 Nasal Cannula 4.00 09/22/17 19:15 73 20 148/68 (94) 77 09/22/17 19:15 77 Room Air 09/22/17 19:14 124 20 127/60 (82) 77 Room Air I/O 09/22/17 09/22/17 09/22/17 09/23/17 09/23/17 09/23/17 07:00 15:00 23:00 07:00 15:00 23:00 Intake Total 400 ml Output Total 350 ml Balance 50 ml Intake Oral 400 ml Output Urine Total 350 ml Imaging Last Impressions Chest X-Ray 09/22/17 1939 Signed Impressions: Service Date/Time: September 19:48 - CONCLUSION: Bibasilar patchiness consistent with probable pneumonia. Clinical correlation is recommended. Stable small left pleural effusion. Stable cardiomegaly. Isidro Kamara MD Abdomen/Pelvis CT 09/22/17 0000 Signed Impressions: Service Date/Time: September 20:00 - CONCLUSION: 1. Small bilateral pleural effusions. 2. Cardiomegaly. 3. Mild hepatosplenomegaly. 4. Multiple simple and complex renal cysts. 5. Uncomplicated colonic diverticulosis. 6. Minimal ascites. 7. 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 8. Degenerative changes and scoliosis of the lumbar spine. 9. Enlarged prostate. Isidro Kamara MD Laboratory Test 09/22/17 19:40 09/22/17 19:45 09/22/17 23:00 09/23/17 04:55 White Blood Count 5.0 TH/MM3 3.3 TH/MM3 Red Blood Count 3.28 MIL/MM3 3.00 MIL/MM3 Hemoglobin 8.8 GM/DL 7.8 GM/DL 8.1 GM/DL Hematocrit 27.3 % 24.7 % 25.1 % Mean Corpuscular Volume 83.0 FL 83.7 FL Mean Corpuscular Hemoglobin 26.7 PG 26.8 PG Mean Corpuscular Hemoglobin Concent 32.2 % 32.1 % Red Cell Distribution Width 17.4 % 17.6 % Platelet Count 254 TH/MM3 183 TH/MM3 Mean Platelet Volume 8.8 FL 8.2 FL Neutrophils (%) (Auto) 76.4 % 72.5 % Lymphocytes (%) (Auto) 11.3 % 11.2 % Monocytes (%) (Auto) 6.3 % 8.4 % Eosinophils (%) (Auto) 4.0 % 6.2 % Basophils (%) (Auto) 2.0 % 1.7 % Neutrophils # (Auto) 3.8 TH/MM3 2.4 TH/MM3 Lymphocytes # (Auto) 0.6 TH/MM3 0.4 TH/MM3 Monocytes # (Auto) 0.3 TH/MM3 0.3 TH/MM3 Eosinophils # (Auto) 0.2 TH/MM3 0.2 TH/MM3 Basophils # (Auto) 0.1 TH/MM3 0.1 TH/MM3 CBC Comment DIFF FINAL DIFF FINAL Differential Comment Prothrombin Time 15.8 SEC Prothromb Time International Ratio 1.6 RATIO Activated Partial Thromboplast Time 31.7 SEC Blood Urea Nitrogen 26 MG/DL 26 MG/DL Creatinine 1.52 MG/DL 1.30 MG/DL Random Glucose 160 MG/DL 155 MG/DL Total Protein 6.8 GM/DL Albumin 3.0 GM/DL Calcium Level 9.2 MG/DL 8.5 MG/DL Alkaline Phosphatase 62 U/L Aspartate Amino Transf (AST/SGOT) 15 U/L Alanine Aminotransferase (ALT/SGPT) 15 U/L Total Bilirubin 0.7 MG/DL Sodium Level 139 MEQ/L 141 MEQ/L Potassium Level 4.0 MEQ/L 4.0 MEQ/L Chloride Level 95 MEQ/L 98 MEQ/L Carbon Dioxide Level 38.4 MEQ/L 38.2 MEQ/L Anion Gap 6 MEQ/L 5 MEQ/L Estimat Glomerular Filtration Rate 44 ML/MIN 53 ML/MIN Troponin I 0.04 NG/ML B-Type Natriuretic Peptide 659 PG/ML Urine Color YELLOW Urine Turbidity CLEAR Urine pH 7.0 Urine Specific Brooks 1.011 Urine Protein 300 mg/dL Urine Glucose (UA) NEG mg/dL Urine Ketones NEG mg/dL Urine Occult Blood LARGE Urine Nitrite NEG Urine Bilirubin NEG Urine Urobilinogen LESS THAN 2.0 MG/DL Urine Leukocyte Esterase NEG Urine RBC 39 /hpf Urine WBC 2 /hpf Urine Squamous Epithelial Cells <1 /hpf Urine Amorphous Sediment RARE Microscopic Urinalysis Comment CULT NOT INDICATED Date/Time Source Procedure Growth Status 09/22/17 19:40 Nasal Washing Influenza Types A,B Antigen (NELSON) - Final NEGATIVE FOR FLU A AND B ANTIGEN.... Complete Physical Examination HEENT: normocephalic; atraumatic; no jaundice. CHEST: CTA CARDIAC: RRR ABDOMEN: Soft, nondistended, nontender; no hepatosplenomegaly; bowel sounds are present in all four quadrants. EXTREMITIES: No clubbing, cyanosis; mild BLE edema SKIN: Normal; no rash; no jaundice. BLE venous stasis changes GALVANOMETER ASSEMBLER: alert (Noemy Chavis) Assessment and Plan Plan ASSESSMENT - anemia with heme pos stool - hypochromic. hgb 8.8 on admission, and has fluctuated. This is not far from his baseline. no obvious bleeding he takes coumadin and his INR is 1.6. 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 he does report an episode of black tarry stool 4 weeks ago which has since resolved. He is refusing procedures saying his "blood doctor" will fix the bleeding. D/w him that a armament aircraft mechanic does not stop GI bleeding. pt wants to d/w . could consider enteroscopy vs monitor PLAN - monitor HH - transfuse as needed - notify GI of active bleeding - further recs to follow pt seen by myself and Dr Alicia (Noemy Chavis [facility]) Physician Comments Seen and examined with [facility], no active bleeding reported. H/H at baseline. No gi interventions planned as in patient. Fu with hematology and GI upon dc. Discussed with pt. and at the bedside. Gi will sign off, reconsult as needed. thankdemario (Akilah Alicia MD) Noemy Chavis Sep 23, 2017 08:43 Akilah Alicia MD Sep 23, 2017 15:38
[2017-09-23] MEDS: DIGOXIN 0.125 MG TAB PO SCH (09:45)
[2017-09-23] MEDS: ATORVASTATIN 40 MG TAB PO SCH (09:45)
[2017-09-23] MEDS: LISINOPRIL 20 MG TAB PO SCH (09:46)
[2017-09-23] MEDS: SODIUM CHLORIDE 0.9% FLUSH 10 ML FLUSH IV FLUSH SCH ×2 (09:48→22:23)
[2017-09-23] MEDS: cefTRIAXone INJ 1,000 MG in SODIUM CHLORIDE 0.9% INJ 100 ML IV SCH (09:57)
[2017-09-23] MEDS: AMITRIPTYLINE HCL 25 MG TAB PO SCH (10:38)
[2017-09-23] MEDS ORDERED: ACETAMINOPHEN/CODEINE 300 MG/30 MG TAB PO PRN (11:00)
[2017-09-23] MEDS ORDERED: LORazepam 2 MG TAB PO PRN (11:00)
--- NOTE | 2017-09-23 12:42 | HHI.PR ---
Subjective Remarks Follow-up visit GI bleed, anemia, IDDM, A. fib AICD placement on Coumadin. Patient seen and examined today lying in bed. at the bedside. Reports he did not have any bowel movements or bloody stool or bloody emesis. States that he does not want any diagnostic intervention because he was scoped less than 6 months ago. Complaints of headaches that comes and go states gets relieved with Tylenol at home. Complaints of mild abdominal pain that comes and go situated in the mid abdomen area. Denies fevers, chills. Objective Vitals Vital Signs Date Time Temp Pulse Resp B/P (MAP) Pulse Ox O2 Delivery O2 Flow Rate FiO2 09/23/17 11:32 98.3 71 18 120/59 (79) 98 09/23/17 09:47 93 Nasal Cannula 4.00 09/23/17 08:09 69 09/23/17 07:27 98.7 70 18 131/60 (83) 97 09/23/17 05:53 Nasal Cannula 4.00 09/23/17 04:25 73 09/23/17 03:54 98.5 70 16 128/66 (86) 97 09/22/17 23:38 98.0 80 17 132/70 (90) 97 09/22/17 23:10 09/22/17 22:30 70 16 141/75 (97) 99 Nasal Cannula 4.00 09/22/17 21:00 69 18 142/70 (94) 98 Nasal Cannula 4.00 137/80 (99) 09/22/17 19:16 96 Nasal Cannula 4.00 09/22/17 19:15 73 20 148/68 (94) 77 09/22/17 19:15 77 Room Air 09/22/17 19:14 124 20 127/60 (82) 77 Room Air I/O 09/22/17 09/22/17 09/22/17 09/23/17 09/23/17 09/23/17 07:00 15:00 23:00 07:00 15:00 23:00 Intake Total 400 ml Output Total 350 ml 600 ml Balance 50 ml -600 ml Intake Oral 400 ml Output Urine Total 350 ml 600 ml Result Diagram: 09/23/17 0455 09/23/17454 Imaging Last Impressions Chest X-Ray 09/22/171938 Signed Impressions: Service Date/Time: September 19:48 - CONCLUSION: Bibasilar patchiness consistent with probable pneumonia. Clinical correlation is recommended. Stable small left pleural effusion. Stable cardiomegaly. Isidro Kamara MD Abdomen/Pelvis CT 09/22/17 0000 Signed Impressions: Service Date/Time: September 20:00 - CONCLUSION: 1. Small bilateral pleural effusions. 2. Cardiomegaly. 3. Mild hepatosplenomegaly. 4. Multiple simple and complex renal cysts. 5. Uncomplicated colonic diverticulosis. 6. Minimal ascites. 7. 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 8. Degenerative changes and scoliosis of the lumbar spine. 9. Enlarged prostate. Isidro Kamara MD Objective Remarks GENERAL: This is a well-nourished, well-developed patient, in no apparent distress. SKIN: Warm and dry. Left lower leg open wound draining serous drainage. Left foot wound dry and healing. HEENT: Normocephalic. Pupils equal round and reactive. Nose without bleeding. Airway patent. NECK: Trachea midline. No JVD. Supple. CARDIOVASCULAR: Regular rate and rhythm without murmurs, gallops, or rubs. RESPIRATORY: Clear to auscultation. Breath sounds equal bilaterally. No wheezes , rales, or rhonchi. GASTROINTESTINAL: Abdomen soft, nondistended. Bowel Sounds normoactive x4. Mild tenderness to palpate midabdominal region. MUSCULOSKELETAL: Extremities without clubbing, cyanosis. Bilateral lower extremities +1 edema. NEUROLOGICAL: Awake and alert. Oriented to time, place, person. No focal neuro deficit. Moves all extremities. Normal speech. A/P Problem List: (1) GI bleed ICD Code: K92.2 - Gastrointestinal hemorrhage, unspecified Status: Acute (2) Pneumonia ICD Code: J18.9 - Pneumonia, unspecified organism Status: Acute (3) Gait instability ICD Code: R26.81 - Unsteadiness on feet (4) DM (diabetes mellitus) ICD Code: E11.9 - Type 2 diabetes mellitus without complications (5) A-fib ICD Code: I48.91 - Unspecified atrial fibrillation (6) CHF (congestive heart failure) ICD Code: I50.9 - Heart failure, unspecified Assessment and Plan Patient is an 81-year-old male with a past medical history significant for anemia, insulin-dependent diabetes mellitus, atrial fibrillation status post AICD placement, anticoagulated on Coumadin, hypertension and hyperlipidemia presents to the emergency department after told by his primary care physician to seek further evaluation. Pneumonia, community-acquired - Chest x-ray significant for bibasilar patchiness, personally reviewed - Azithromycin/Rocephin - Duo nebs GI bleed - Patient with history of black, tarry stools - Hemoccult-positive in the ED - H&H, 8.8/27.3 - Transfuse when necessary - Serial H&H - IV Protonix - GI consult for further evaluation and recommendation. Atrial fibrillation - Holding home Coumadin for GI bleed - INR subtherapeutic at 1.6 - Continue home medications Insulin-dependent diabetes mellitus - Holding home Lantus for now. - Sliding scale insulin - Monitor blood glucose Hypertension/hyperlipidemia - Continue home medications atorvastatin 40 mg daily. 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 Holding chemotherapy prophylaxis for now secondary to suspected of GI bleed. Problem Qualifiers (1) GI bleed: Qualified Codes: K92.2 - Gastrointestinal hemorrhage, unspecified (2) Pneumonia: Qualified Codes: J18.1 - Lobar pneumonia, unspecified organism Carol Galvez Sep 23, 2017 12:42
[2017-09-23] MEDS ORDERED: DEXTROSE 50% IN WATER 50 ML VIAL(D50) IV PUSH PRN (12:45)
[2017-09-23] MEDS ORDERED: GLUCAGON 1 MG/ML VIAL OTHER PRN (12:45)
[2017-09-23] MEDS: INSULIN ASPART SUPPLEMENTAL SCALE SQ SCH ×2 (17:55→22:22)
[2017-09-23] MEDS ORDERED: AZITHROMYCIN INJ 250 MG in SODIUM CHLOR 0.9% 250 ML INJ 250 ML IV SCH (21:00)
--- NOTE | 2017-09-23 21:14 | EKG ---
Date Performed: 09/22/2017 Time Performed: 19:22:08 PTAGE: 81 years EKG: ATRIAL FIBRILLATION WITH VENTRICULAR DEMAND PACING Since the prior tracing, there has been no significant change ABNORMAL RHYTHM ECG PREVIOUS TRACING : 07/12/2017 20.55 DOCTOR: Marco Antonio Duron Interpretating Date/Time 09/23/2017 21:13:46
[2017-09-24] VITALS: BP 100/55; PULSE 103; RESP 16; TEMP 97.8; O2SAT 96
[2017-09-24 04:23] VITALS: BP 102/54; PULSE 69; RESP 16; TEMP 96.7; O2SAT 92
[2017-09-24 06:12] LABS: HEMOGLOBIN 8.6 GM/DL (13.0-17.0)
[2017-09-24 08:00] VITALS: BP 109/59; PULSE 70; RESP 16; TEMP 97.9; O2SAT 92
[2017-09-24] MEDS: INSULIN ASPART SUPPLEMENTAL SCALE SQ SCH (08:57)
[2017-09-24] MEDS: cefTRIAXone INJ 1,000 MG in SODIUM CHLORIDE 0.9% INJ 100 ML IV SCH (08:57)
[2017-09-24] MEDS: TORSEMIDE 20 MG TAB PO SCH (09:00)
[2017-09-24] MEDS: DIGOXIN 0.125 MG TAB PO SCH (09:00)
[2017-09-24] MEDS: GABAPENTIN 300 MG CAP PO SCH (09:00)
[2017-09-24] MEDS: LISINOPRIL 20 MG TAB PO SCH (09:00)
[2017-09-24] MEDS: ATORVASTATIN 40 MG TAB PO SCH (09:00)
[2017-09-24] MEDS: SODIUM CHLORIDE 0.9% FLUSH 10 ML FLUSH IV FLUSH SCH (09:01)
[2017-09-24] MEDS: NEBIVOLOL 10 MG TAB PO SCH (09:01)
[2017-09-24] MEDS: AMITRIPTYLINE HCL 25 MG TAB PO SCH (09:01)
[2017-09-24 10:54] LABS: HEMATOCRIT 27.1 % (39.0-51.0); HEMOGLOBIN 8.4 GM/DL (13.0-17.0)
[2017-09-24] MEDS ORDERED: AZIT250T3 PO (11:18)
[2017-09-24] MEDS ORDERED: CEFU1TAB20 PO (11:18)
--- NOTE | 2017-09-24 11:19 | HHI.DS ---
Discharge Summary Admission Date Sep 22, 2017 at 21:26 Discharge Date: Sep 24, 2017 Admitting Diagnosis GI bleed, pneumonia (1) GI bleed ICD Code: K92.2 - Gastrointestinal hemorrhage, unspecified Status: Acute (2) Pneumonia ICD Code: J18.9 - Pneumonia, unspecified organism Status: Acute (3) Gait instability ICD Code: R26.81 - Unsteadiness on feet (4) DM (diabetes mellitus) ICD Code: E11.9 - Type 2 diabetes mellitus without complications (5) A-fib ICD Code: I48.91 - Unspecified atrial fibrillation (6) CHF (congestive heart failure) ICD Code: I50.9 - Heart failure, unspecified Procedures None Brief History - From Admission History of present illness from the admitting physician 81-year-old male with a past medical history significant for anemia, insulin- dependent diabetes mellitus, atrial fibrillation status post AICD placement, anticoagulated on Coumadin, hypertension and hyperlipidemia presents to the emergency department after told by his primary care physician to seek further evaluation. The patient reports that his PCP was confused and believed that he had symptoms of dizziness and lightheadedness when he in fact did not. Upon arrival to the ED the patient endorsed black, bloody stools 1 approximately 3 weeks ago. He was found to be Hemoccult positive in the emergency department. He also was found to have pneumonia on chest x-ray. He denies shortness of breath, cough, fever/chills. Denies nausea/vomiting/diarrhea. CBC/BMP: 09/24/17 1024 09/23/17 0455 Significant Findings Laboratory Tests Test 09/22/17 19:40 09/22/17 19:45 09/22/17 23:00 09/23/17 04:55 Red Blood Count 3.28 MIL/MM3 (4.50-5.90) 3.00 MIL/MM3 (4.50-5.90) Hemoglobin 8.8 GM/DL (13.0-17.0) 7.8 GM/DL (13.0-17.0) 8.1 GM/DL (13.0-17.0) Hematocrit 27.3 % (39.0-51.0) 24.7 % (39.0-51.0) 25.1 % (39.0-51.0) Mean Corpuscular Hemoglobin 26.7 PG (27.0-34.0) 26.8 PG (27.0-34.0) Red Cell Distribution Width 17.4 % (11.6-17.2) 17.6 % (11.6-17.2) Neutrophils (%) (Auto) 76.4 % (16.0-70.0) 72.5 % (16.0-70.0) Lymphocytes # (Auto) 0.6 TH/MM3 (1.0-4.8) 0.4 TH/MM3 (1.0-4.8) Prothrombin Time 15.8 SEC (9.8-11.6) Activated Partial Thromboplast Time 31.7 SEC (24.3-30.1) Blood Urea Nitrogen 26 MG/DL (7-18) 26 MG/DL (7-18) Creatinine 1.52 MG/DL (0.60-1.30) Random Glucose 160 MG/DL (74-106) 155 MG/DL (74-106) Albumin 3.0 GM/DL (3.4-5.0) Chloride Level 95 MEQ/L (98-107) Carbon Dioxide Level 38.4 MEQ/L (21.0-32.0) 38.2 MEQ/L (21.0-32.0) Estimat Glomerular Filtration Rate 44 ML/MIN (>89) 53 ML/MIN (>89) B-Type Natriuretic Peptide 659 PG/ML (0-100) Urine Protein 300 mg/dL (NEG-TRACE) Urine Occult Blood LARGE (NEG) Urine RBC 39 /hpf (0-3) White Blood Count 3.3 TH/MM3 (4.0-11.0) Monocytes (%) (Auto) 8.4 % (0.0-8.0) Eosinophils (%) (Auto) 6.2 % (0.0-4.0) Test 09/24/17 04:23 09/24/17 10:24 Hemoglobin 8.6 GM/DL (13.0-17.0) 8.4 GM/DL (13.0-17.0) Hematocrit 28.0 % (39.0-51.0) 27.1 % (39.0-51.0) Imaging Last Impressions Chest X-Ray 09/22/17 1939 Signed Impressions: Service Date/Time: September 19:48 - CONCLUSION: Bibasilar patchiness consistent with probable pneumonia. Clinical correlation is recommended. Stable small left pleural effusion. Stable cardiomegaly. Isidro Kamara MD Abdomen/Pelvis CT 09/22/17 0000 Signed Impressions: Service Date/Time: September 20:00 - CONCLUSION: 1. Small bilateral pleural effusions. 2. Cardiomegaly. 3. Mild hepatosplenomegaly. 4. Multiple simple and complex renal cysts. 5. Uncomplicated colonic diverticulosis. 6. Minimal ascites. 7. 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 8. Degenerative changes and scoliosis of the lumbar spine. 9. Enlarged prostate. Isidro Kamara MD PE at Discharge GENERAL: This is a well-nourished, well-developed patient, in no apparent distress. SKIN: Warm and dry. Left lower leg open wound draining serous drainage. Left foot wound dry and healing. HEENT: Normocephalic. Pupils equal round and reactive. Nose without bleeding. Airway patent. NECK: Trachea midline. No JVD. Supple. CARDIOVASCULAR: Regular rate and rhythm without murmurs, gallops, or rubs. RESPIRATORY: Clear to auscultation. Breath sounds equal bilaterally. No wheezes , rales, or rhonchi. GASTROINTESTINAL: Abdomen soft, nondistended. Bowel Sounds normoactive x4. Mild tenderness to palpate midabdominal region. MUSCULOSKELETAL: Extremities without clubbing, cyanosis. Bilateral lower extremities +1 edema. NEUROLOGICAL: Awake and alert. Oriented to time, place, person. No focal neuro deficit. Moves all extremities. Normal speech. Pt update on day of discharge Patient reports is feeling great. He wants to go home. Discussed with his at bedside. She said she can take care of him at home. They refused endoscopy. H&H remained stable. Hospital Course 81-year-old male with a past medical history significant for anemia, insulin- dependent diabetes mellitus, atrial fibrillation status post AICD placement, anticoagulated on Coumadin, hypertension and hyperlipidemia admitted and treated for the following: Pneumonia, community-acquired - Chest x-ray significant for bibasilar patchiness, personally reviewed -Patient initially treated with Rocephin and azithromycin. He denies any significant issues with shortness of breath. He is discharged on cefuroxime and azithromycin to complete a course of treatment. GI bleed - Patient with history of black, tarry stools - Hemoccult-positive in the ED - H&H, 8.8/27.3. His H&H remained stable and did not require transfusion. He was evaluated by GI and refused endoscopy. GI advise outpatient follow-up. Atrial fibrillation - Coumadin was on hold due to GI bleeding. Given there is no active bleeding , resume Coumadin. Insulin-dependent diabetes mellitus -Resume home medications on discharge Hypertension/hyperlipidemia - Continue home medications atorvastatin 40 mg daily. 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 Chronic kidney disease - Creatinine 1.52, at baseline - Avoid nephrotoxic agents Debility: The patient refused SNF placement. He may benefit from SHELTER but is not willing to consider this at this time. Pt Condition on Discharge: Good Discharge Disposition: Discharge Home Discharge Time: <= 30 minutes Discharge Instructions DIET: Follow Instructions for: Heart Healthy Diet Activities you can perform: Regular-No Restrictions Follow up Referrals: PCP Follow-up - 1 Week with Phyllis Moran MD New Medications: Azithromycin (Azithromycin) 250 Mg Tab 250 MG PO DAILY for Infection, #4 TAB 0 Refills Cefuroxime (Cefuroxime) 500 Mg Tab 500 MG PO BID for Infection, #14 TAB 0 Refills Continued Medications: Acarbose (Acarbose) 100 Mg Tab 100 MG PO TID for Blood Sugar Management, #90 TAB 0 Refills Take with first bite of meal. Acetaminophen (Tylenol) 325 Mg Tab 650 MG PO Q6H PRN for MILD PAIN/ELEVATED TEMP, TAB 0 Refills Acetaminophen-Codeine (Tylenol-Codeine #3) 300-30 mg Tab 1 TAB PO Q4H PRN for PAIN, #10 TAB 0 Refills DO NOT USE THIS MEDICINE IF YOU WILL DRIVE A CAR OR USE A MACHINE, ONLY USE IT WHEN RESTING AT HOME. Atorvastatin (Atorvastatin) 40 Mg Tab 40 MG PO DAILY for Cholesterol Management, #30 TAB 0 Refills Cholecalciferol (Vitamin D3) 5,000 Unit Cap 5000 UNITS PO HS for Nutritional Supplement, #30 CAP 0 Refills Cyanocobalamin (Vitamin B12) 100 Mcg Tab 100 MCG PO DAILY, #1 BOTTLE Digoxin (Digoxin) 0.125 Mg Tab 0.125 MG PO DAILY for Regulate Heart Beat, #30 TAB 0 Refills Finasteride (Finasteride) 5 Mg Tab 5 MG PO HS for Manage Prostate Problems, #30 TAB 0 Refills Do not crush. Fluticasone Nasal [place] (Fluticasone Nasal [place]) 50 Mcg/Act Naspr 50 MCG EACH NARE DAILY for Allergy Management, #1 BOTTLE 0 Refills 50 mcg/spray Gabapentin (Gabapentin) 300 Mg Cap 600 MG PO BID, #90 CAP 0 Refills Insulin Glargine Inj (Lantus Inj) 1,000 Unit/10 Ml Vial 15 UNITS SQ HS for Blood Sugar Management, VIAL 0 Refills Ipratropium-Albuterol Neb (Duoneb) 0.5-2.5 Mg/3 Ml Neb 3 ML NEB TID for Shortness of Breath, #30 NEBULE 0 Refills Lisinopril (Lisinopril) 20 Mg Tab 20 MG PO DAILY, #30 TAB 0 Refills Lorazepam (Ativan) 2 Mg Tab 2 MG PO Q6H PRN for ANXIETY, #10 TAB 0 Refills Nebivolol (Bystolic) 10 Mg Tab 10 MG PO BID for Blood Pressure Management, #30 TAB 0 Refills Omeprazole (Omeprazole) 40 Mg Cap 40 MG PO BID, #30 CAP 0 Refills Sennosides-Docusate Sodium (Senna S) 8.6-50 Mg Tab 1 TAB PO DAILY PRN for CONSTIPATION Torsemide (Torsemide) 20 Mg Tab 40 MG PO BID, #60 TAB 0 Refills Trazodone (Trazodone) 50 Mg Tab 50 MG PO HS for Control Depression, #30 TAB 0 Refills Discontinued Medications: Amoxicillin-Clavulanate (Augmentin) 500-125 mg Tab 500 MG PO BID for Infection, TAB 0 Refills Cephalexin (Keflex) 500 Mg Capsule 500 MG PO Q6H for Infection, #40 CAP 0 Refills Fluconazole (Diflucan) 150 Mg Tab 150 MG PO ONCE for Infection, #1 TAB 0 Refills Claude Rivas MD Sep 24, 2017 11:19
--- NOTE | 2017-09-24 11:20 | HHI.DCPOC ---
Discharge Care Plan Diagnosis: (1) Pneumonia (2) GI bleed Goals to Promote Your Health * To prevent worsening of your condition and complications * To maintain your health at the optimal level Directions to Meet Your Goals Take your medications as prescribed Follow your dietary instruction Follow activity as directed Keep your appointments as scheduled Take your immunizations and boosters as scheduled If your symptoms worsen call your PCP, if no PCP go to Urgent Care Center or Emergency Room Smoking is Dangerous to Your Health. Avoid second hand smoke Call the 24-hour hour crisis hotline for domestic abuse at Claude Rivas MD Sep 24, 2017 11:20
== END 2017-09-24 12:25 | disposition home or self-care (01) | DRG 377 ==
LOC: NEPC 19:04 → NEDA 21:26 → NEPGCP 23:24 → N07B 09-23 15:48
PROVIDERS: ADMIT Family Medicine; ATTEND Family Medicine
DX: K92.2 Gastrointestinal hemorrhage, unspecified (principal); J18.9 Pneumonia, unspecified organism; E11.22 Type 2 diabetes mellitus with diabetic chronic kidney disease; I13.0 Hypertensive heart and chronic kidney disease with heart failure and stage 1 through stage 4 chronic kidney disease, or unspecified chronic kidney disease; I50.9 Heart failure, unspecified; I48.91 Unspecified atrial fibrillation; Z79.4 Long term (current) use of insulin; N18.9 Chronic kidney disease, unspecified; D64.9 Anemia, unspecified; R26.81 Unsteadiness on feet; Z95.810 Presence of automatic (implantable) cardiac defibrillator; Z79.01 Long term (current) use of anticoagulants; E78.5 Hyperlipidemia, unspecified; I71.4 Abdominal aortic aneurysm, without rupture; H91.90 Unspecified hearing loss, unspecified ear; S90.812A Abrasion, left foot, initial encounter; S80.812A Abrasion, left lower leg, initial encounter; X58.XXXA Exposure to other specified factors, initial encounter; Z87.891 Personal history of nicotine dependence; Z96.653 Presence of artificial knee joint, bilateral
CPT/HCPCS: 71045; 74176; 80048; 80053; 81001; 82948; 83880; 84484; 85014; 85018; 85025; 85610; 85730; 86850; 86900; 86901; 87070; 87205; 87804; 93005; 99285; C9113; J0456; J0692; J0696; J1815; J2405; J7050

== ENCOUNTER 2017-09-24 18:59 | Inpatient (IN) | payer MEDICARE ==
[~2017-09-24] VITALS: Ht 188 cm; Wt 105.4 kg
[~2017-09-24 18:59] MED LIST changes: +AMIT25TA9 PO; +AUGM500T7 PO; +AZIT250T3 PO; +CEFU1TAB20 PO; +DIFL150T PO; -FERR325T20 PO; +FLUT50SP EACH NARE
[2017-09-24 19:05] VITALS: BP 120/59; PULSE 69; RESP 18; TEMP 97.2; O2SAT 90
[2017-09-24] MEDS ORDERED: SODIUM CHLORIDE 0.9% FLUSH 10 ML FLUSH IVF PRN (19:15)
--- NOTE | 2017-09-24 19:16 | PD ---
HPI Chief Complaint: General Weakness Time Seen by Provider: 19:02 Travel History International Travel<30 days: No Contact w/Intl Traveler<30days: No Traveled to known affect area: No History of Present Illness HPI 81-year-old male with history of anemia, insulin dependent diabetes, A. fib on Coumadin, AICD, hypertension, hyperlipidemia, recently admitted on 09/22/17 for GI bleed and pneumonia, discharged today with cefuroxime and azithromycin, brought back by ambulance for evaluation of generalized weakness and generalized tremor. According to EMS his blood pressure on scene was 112 systolic in the supine position and then when standing dropped to 86 systolic. Patient feels generalized weakness. He denies chest pain or dyspnea. No abdominal pain. He reports that he is still having black stools. Denies fevers. No cough. 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) Endocrine: Yes Gastrointestinal Disorders: Yes GERD: No Glaucoma: No Genitourinary: Yes (BPH) Headaches: Yes (R/T SINUSITIS) Hepatitis: No Hiatal Hernia: Yes Hypertension: Yes Immune Disorder: No Implanted Vascular Access Dvce: Yes Kidney Stones: No Musculoskeletal: Yes Neurologic: Yes Psychiatric: Yes Reproductive: No Respiratory: Yes Integumentary: Yes Immunizations Current: No Migraines: No Radiation Therapy: No Renal Failure: No Seizures: No Sickle Cell Disease: No Sleep Apnea: Yes (CPAP AT NIGHT AT TIMES) Thyroid Disease: No Ulcer: No Past Surgical History Abdominal Surgery: Yes (HERNIA REPAIR) AICD: Yes Appendectomy: Yes Arteriovenous Shunt: No Body Medical Devices: KNEE REPLACEMENT LEFT AND RIGHT, AICD Cardiac Surgery: Yes (PACEMAKER/DEFIB) Cholecystectomy: Yes Ear Surgery: No Endocrine Surgery: No Eye Surgery: Yes (L & R EYE CATARACTS) Genitourinary Surgery: No Gynecologic Surgery: No Insulin Pump: No Joint Replacement: Yes (BILATERAL TKR) Neurologic Surgery: No Oral Surgery: No Pacemaker: Yes (REPLACED IN NOVEMBER 2016) Thoracic Surgery: No Other Surgery: Yes (pacemaker placement, herniated appendix) Social History Alcohol Use: No Tobacco Use: No Substance Use: No Allergies-Medications (Allergen,Severity, Reaction): Coded Allergies: MRI PRECAUTION (Verified Allergy, Severe, 07/10/17) Uncoded Allergies: STEROIDS (Adverse Reaction, Mild, 01/10/17) ELEVATED BLOOD SUGAR Reported Meds & Prescriptions Reported Meds & Active Scripts Active Azithromycin 250 Mg Tab 250 Mg PO DAILY Cefuroxime (Cefuroxime Axetil) 500 Mg Tab 500 Mg PO BID Ativan (Lorazepam) 2 Mg Tab 2 Mg PO Q6H PRN Tylenol-Codeine #3 (Acetaminophen-Codeine) 300-30 mg Tab 1 Tab PO Q4H PRN DO NOT USE THIS MEDICINE IF YOU WILL DRIVE A CAR OR USE A MACHINE, ONLY USE IT WHEN RESTING AT HOME. Warfarin 5 Mg Tab 5 Mg PO DAILY Continue Warfarin 5 mg by mouth daily Daily PT/INR INR Goal 2 to 3 Hold Warfarin if INR in 3 or over Titrate to desided INR goal by Attending physician at [facility] Walker/Adult/Folding (Device) 1 Mis Mis Ea .ROUTE DIRECTED Oxygen tank (Oxygen) 1 Ea Tank 2 Liter JAKE.CANULA CONTINUOUS Oxygen Concentrator Portable Gaseous 2 L/min via Nasal Cannula Continuous For 99 months Digoxin 0.125 Mg Tab 0.125 Mg PO DAILY Reported Fluticasone Nasal [place] 50 Mcg/Act Naspr 50 Mcg EACH NARE DAILY 50 mcg/spray Amitriptyline (Amitriptyline HCl) 25 Mg Tab 25 Mg PO DAILY Acarbose 100 Mg Tab 100 Mg PO TID Take with first bite of meal. Lantus Inj (Insulin Glargine) 1,000 Unit/10 Ml Vial 15 Units SQ HS Duoneb (Ipratropium-Albuterol Neb) 0.5-2.5 Mg/3 Ml Neb 3 Ml NEB TID Senna S (Sennosides-Docusate Sodium) 8.6-50 Mg Tab 1 Tab PO DAILY PRN Tylenol (Acetaminophen) 325 Mg Tab 650 Mg PO Q6H PRN Vitamin D3 (Cholecalciferol) 5,000 Unit Cap 5,000 Units PO HS Amitriptyline (Amitriptyline HCl) 50 Mg Tab 50 Mg PO HS Trazodone (Trazodone HCl) 50 Mg Tab 50 Mg PO HS Gabapentin 300 Mg Cap 600 Mg PO BID Vitamin B12 (Cyanocobalamin) 100 Mcg Tab 100 Mcg PO DAILY Omeprazole 40 Mg Cap 40 Mg PO BID Atorvastatin (Atorvastatin Calcium) 40 Mg Tab 40 Mg PO DAILY Torsemide 20 Mg Tab 40 Mg PO BID Lisinopril 20 Mg Tab 20 Mg PO DAILY Bystolic (Nebivolol) 10 Mg Tab 10 Mg PO BID Finasteride 5 Mg Tab 5 Mg PO HS Do not crush. Review of Systems Except as stated in HPI: all other systems reviewed are Neg Physical Exam Narrative GENERAL: Well-developed, well-nourished, awake, alert, no apparent distress. SKIN: Focused skin assessment warm/dry. HEAD: Atraumatic. Normocephalic. EYES: Pupils equal and round. No scleral icterus. No injection or drainage. ENT: No nasal bleeding or discharge. Mucous membranes pink and moist. NECK: Trachea midline. No JVD. CARDIOVASCULAR: Regular rate and rhythm. RESPIRATORY: No accessory muscle use. Clear to auscultation. Breath sounds equal bilaterally. GASTROINTESTINAL: Abdomen soft, non-tender, nondistended. RECTUM: No masses, no fissures, no hemorrhoids, heme positive black stool. MUSCULOSKELETAL: No obvious deformities. No clubbing. No cyanosis. Moderate edema to all 4 extremities. NEUROLOGICAL: Awake and alert. No obvious cranial nerve deficits. Motor grossly within normal limits. Normal speech. PSYCHIATRIC: Appropriate mood and affect; insight and judgment normal. Data Data Last Documented VS Vital Signs Date Time Temp Pulse Resp B/P (MAP) Pulse Ox O2 Delivery O2 Flow Rate FiO2 09/24/17 19:26 Nasal Cannula 4.00 09/24/17 19:05 97.2 69 18 120/59 (79) Orders Orders Complete Blood Count With Diff (09/24/17 19:07) Comprehensive Metabolic Panel (09/24/17 19:07) Act Partial Throm Time (Ptt) (09/24/17 19:07) Prothrombin Time / Inr (Pt) (09/24/17 19:07) Urinalysis - C+S If Indicated (09/24/17 19:07) Influenzae A/B Antigen (09/24/17 19:07) Blood Culture (09/24/17 19:07) Iv Access Insert/Monitor (09/24/17 19:07) Electrocardiogram (09/24/17 19:07) Ecg Monitoring (09/24/17 19:07) Oximetry (09/24/17 19:07) Oxygen Administration (09/24/17 19:07) Chest, Single Ap (09/24/17 19:07) Sodium Chloride 0.9% Flush (Ns Flush) (09/24/17 19:15) Cath For Specimen (09/24/17 19:16) Acetaminophen (Tylenol) (09/24/17 20:45) B-Type Natriuretic Peptide (09/24/17 20:33) Urine Culture (09/24/17 19:34) Ceftriaxone Inj (Rocephin Inj) (09/24/17 21:00) Azithromycin Inj (Zithromax Inj) (09/24/17 21:00) Admit Order (Ed Use Only) (09/24/17 21:02) Labs Laboratory Tests Test 09/24/17 19:34 White Blood Count 5.8 TH/MM3 Red Blood Count 3.29 MIL/MM3 Hemoglobin 8.6 GM/DL Hematocrit 27.7 % Mean Corpuscular Volume 84.1 FL Mean Corpuscular Hemoglobin 26.1 PG Mean Corpuscular Hemoglobin Concent 31.0 % Red Cell Distribution Width 17.5 % Platelet Count 299 TH/MM3 Mean Platelet Volume 8.5 FL Neutrophils (%) (Auto) 84.2 % Lymphocytes (%) (Auto) 5.5 % Monocytes (%) (Auto) 5.5 % Eosinophils (%) (Auto) 3.0 % Basophils (%) (Auto) 1.8 % Neutrophils # (Auto) 4.9 TH/MM3 Lymphocytes # (Auto) 0.3 TH/MM3 Monocytes # (Auto) 0.3 TH/MM3 Eosinophils # (Auto) 0.2 TH/MM3 Basophils # (Auto) 0.1 TH/MM3 CBC Comment DIFF FINAL Differential Comment Prothrombin Time 13.3 SEC Prothromb Time International Ratio 1.3 RATIO Activated Partial Thromboplast Time 28.6 SEC Urine Color YELLOW Urine Turbidity HAZY Urine pH 5.5 Urine Specific [place] 1.015 Urine Protein 100 mg/dL Urine Glucose (UA) NEG mg/dL Urine Ketones NEG mg/dL Urine Occult Blood MOD Urine Nitrite NEG Urine Bilirubin NEG Urine Urobilinogen LESS THAN 2.0 MG/DL Urine Leukocyte Esterase NEG Urine RBC 92 /hpf Urine WBC 4 /hpf Urine Squamous Epithelial Cells <1 /hpf Urine Bacteria MOD /hpf Urine Hyaline Casts 10 /lpf Urine Mucus FEW /lpf Microscopic Urinalysis Comment CULTURE INDICATED Blood Urea Nitrogen 31 MG/DL Creatinine 2.38 MG/DL Random Glucose 161 MG/DL Total Protein 6.8 GM/DL Albumin 3.0 GM/DL Calcium Level 8.7 MG/DL Alkaline Phosphatase 60 U/L Aspartate Amino Transf (AST/SGOT) 9 U/L Alanine Aminotransferase (ALT/SGPT) 9 U/L Total Bilirubin 0.6 MG/DL Sodium Level 139 MEQ/L Potassium Level 4.3 MEQ/L Chloride Level 96 MEQ/L Carbon Dioxide Level 37.3 MEQ/L Anion Gap 6 MEQ/L Estimat Glomerular Filtration Rate 26 ML/MIN [facility] Medical Decision Making Medical Screen Exam Complete: Yes Emergency Medical Condition: Yes Medical Record Reviewed: Yes Differential Diagnosis Anemia, pneumonia, GI bleed, metabolic abnormality Narrative Course Vital signs reviewed. CBC: WBC 5.8, hemoglobin 8.6, hematocrit 27.7, platelets 299, neutrophils 84%. CMP is remarkable for bicarbonate 37, BUN 31, creatinine 2.3, GFR 26. Renal function is worse than his baseline. UA is suggestive of UTI. Patient initially refused chest x-ray. I told him the importance of obtaining this film and he finally has agreed. Case discussed with hospitalist Dr. Koch who will admit the patient to her service. The patient has melena today. His H&H is stable. He does have acute on chronic renal insufficiency. Chest x-ray and BNP are pending at time of admission. The patient was started on IV Rocephin and IV azithromycin by me. Diagnosis Primary Impression: NEREYDA (acute kidney injury) Additional Impressions: GI bleed Qualified Codes: K92.1 - Melena Gait instability Pneumonia Qualified Codes: J18.9 - Pneumonia, unspecified organism UTI (urinary tract infection) Qualified Codes: N39.0 - Urinary tract infection, site not specified Pulmonary edema Qualified Codes: J81.0 - Acute pulmonary edema Erick Pavon MD Sep 24, 2017 19:16
[2017-09-24 20:07] LABS: AUTOMATED NEUTROPHIL # 4.9 TH/MM3 (1.8-7.7); BASOPHIL # 0.1 TH/MM3 (0-0.2); BASOPHIL % 1.8 % (0.0-2.0); EOSINOPHIL # 0.2 TH/MM3 (0-0.4); HEMATOCRIT 27.7 % (39.0-51.0); HEMOGLOBIN 8.6 GM/DL (13.0-17.0); LYMPH % 5.5 % (9.0-44.0); LYMPHOCYTE # 0.3 TH/MM3 (1.0-4.8); MEAN CELL VOLUME 84.1 FL (80.0-100.0); MEAN CORPUSCULAR HEMOGLOBIN 26.1 PG (27.0-34.0); MEAN PLATELET VOLUME 8.5 FL (7.0-11.0); MONO % 5.5 % (0.0-8.0); MONOCYTE # 0.3 TH/MM3 (0-0.9); NEUT % 84.2 % (16.0-70.0); PLATELET COUNT 299 TH/MM3 (150-450); RED BLOOD COUNT 3.29 MIL/MM3 (4.50-5.90); RED CELL DISTRIBUTION WIDTH 17.5 % (11.6-17.2); WHITE BLOOD COUNT 5.8 TH/MM3 (4.0-11.0)
[2017-09-24 20:24] LABS: INTERNATIONAL NORMALIZED RATIO 1.3 RATIO; PROTHROMBIN TIME - PATIENT 13.3 SEC (9.8-11.6)
[2017-09-24 20:39] LABS: BACTERIA, URINE MOD /hpf; BILIRUBIN, URINE NEG (NEG); BLOOD, URINE MOD (NEG); GLUCOSE,URINE NEG (NEG); HYALINE CAST, URINE 10 /lpf (RARE); KETONE, URINE NEG (NEG); MUCUS URINE FEW /lpf (OCC); NITRITE,URINE NEG (NEG); PH, URINE 5.5 (5.0-8.5); SQUAMOUS EPITHELIAL CELL URINE <1 /hpf (0-5); URINE COLOR YELLOW (YELLW/STRAW); URINE LEUKOCYTE ESTERASE NEG (NEG)
[2017-09-24] MEDS ORDERED: ACETAMINOPHEN 325 MG TAB PO ONE (20:45)
[2017-09-24 20:47] LABS: AST (GOT) 9 U/L (15-37); BICARBONATE 37.3 MEQ/L (21.0-32.0); BLOOD UREA NITROGEN 31 MG/DL (7-18); CALCIUM 8.7 MG/DL (8.5-10.1); CHLORIDE 96 MEQ/L (98-107); CREATININE 2.38 MG/DL (0.60-1.30); GLOMERULAR FILTRATION RATE 26 ML/MIN (>89); GLUCOSE,RANDOM 161 MG/DL (74-106); SODIUM (NA) 139 MEQ/L (136-145)
[2017-09-24 20:58] LABS: ALKALINE PHOSPHATASE 60 U/L (45-117); ALT (GPT) 9 U/L (12-78); TOTAL BILIRUBIN ADULT 0.6 MG/DL (0.2-1.0); TOTAL PROTEIN 6.8 GM/DL (6.4-8.2)
[2017-09-24] MEDS ORDERED: cefTRIAXone INJ 1,000 MG in SODIUM CHLORIDE 0.9% INJ 100 ML IV ONE (21:00)
[2017-09-24] MEDS ORDERED: AZITHROMYCIN INJ 500 MG in SODIUM CHLOR 0.9% 250 ML INJ 250 ML IV ONE (21:00)
--- NOTE | 2017-09-24 21:20 | RADRPT ---
EXAM DATE/TIME: 09/24/2017 20:59 [place] COMPARISON: CHEST SINGLE AP, September 22, 2017, 19:48. INDICATIONS : Shortness of breath. General weakness. MEDICAL HISTORY : Congestive heart failure. Hypercholesterolemia. Hypertension. COPD, A-fib. Diabetes. SURGICAL HISTORY : Appendectomy. Cholecystectomy. Pacemaker. Hernia repair. ENCOUNTER: Sequela ACUITY: 3 days PAIN SCORE: 0/10 LOCATION: Bilateral chest FINDINGS: There is worsening pulmonary edema since the prior exam. Bilateral pleural effusions are suspected. T he rest of the examination has not significantly changed. CONCLUSION: Worsening pulmonary edema. Lonnie Martines MD on September 24, 2017 at 21:17 Board Certified Radiologist. This report was verified electronically.
[2017-09-24] MEDS ORDERED: NALOXONE HCL 0.4 MG/ML AMP IV PUSH PRN (21:30)
[2017-09-24] MEDS ORDERED: FUROSEMIDE 40 MG/4 ML VIAL IV PUSH ONE (21:30)
[2017-09-24] MEDS ORDERED: ONDANSETRON HCL 4 MG/2 ML VIAL IVP PRN (21:30)
[2017-09-24] MEDS ORDERED: RESP: ALBUTEROL 2.5 MG/IPRATROPIUM 0.5 MG NEB (PRN) NEB ×2 (21:30→21:45)
[2017-09-24] MEDS ORDERED: SODIUM CHLORIDE 0.9% FLUSH 10 ML FLUSH IV FLUSH PRN (21:30)
[2017-09-24] MEDS ORDERED: ACETAMINOPHEN 325 MG TAB PO PRN (21:30)
[2017-09-24] MEDS ORDERED: GLUCAGON 1 MG/ML VIAL OTHER PRN (21:45)
[2017-09-24] MEDS ORDERED: DEXTROSE 50% IN WATER 50 ML VIAL(D50) IV PUSH PRN (21:45)
--- NOTE | 2017-09-24 21:55 | HHI.HP ---
HPI Service [facility] Primary Care Physician Phyllis Moran MD Admission Diagnosis NEREYDA, UTI, Melena, PNA, Gait instability Diagnoses: Travel History International Travel<30 Days: No Contact w/Intl Traveler <30 Da: No Traveled to Known Affected Are: No History of Present Illness 81-year-old male with a past medical history significant for anemia, insulin- dependent diabetes mellitus, atrial fibrillation status post AICD placement, anticoagulated on Coumadin, hypertension and hyperlipidemia presents to the emergency department for evaluation of multiple complaints. The patient was discharged from the hospital earlier today where he was being treated for community-acquired pneumonia and a GI bleed. He was discharged to home with azithromycin and Ceftin for his pneumonia and gastroenterology recommends follow -up with hematology and gastroenterology as an outpatient there are no signs of active bleeding at the patient is anticoagulated. The patient's reports that upon their arrival home today patient fell and hit his head. She denies that he lost consciousness. She reports that she called EMS because the patient had not urinated, had not taken anything by mouth and could not stand since his discharge from the hospital earlier today. She denies any chest pain/ shortness of breath. He denies dizziness/lightheadedness. No fever/chills. Review of Systems Except as stated in HPI: all other systems reviewed are Neg Past Family Social History Past Medical History Anemia Insulin-dependent diabetes mellitus Atrial fibrillation anticoagulated on Coumadin Hypertension Hyperlipidemia Past Surgical History AICD placement Appendectomy Cholecystectomy Reported Medications Reported Meds & Active Scripts Active Azithromycin 250 Mg Tab 250 Mg PO DAILY Cefuroxime (Cefuroxime Axetil) 500 Mg Tab 500 Mg PO BID Ativan (Lorazepam) 2 Mg Tab 2 Mg PO Q6H PRN Tylenol-Codeine #3 (Acetaminophen-Codeine) 300-30 mg Tab 1 Tab PO Q4H PRN DO NOT USE THIS MEDICINE IF YOU WILL DRIVE A CAR OR USE A MACHINE, ONLY USE IT WHEN RESTING AT HOME. Warfarin 5 Mg Tab 5 Mg PO DAILY Continue Warfarin 5 mg by mouth daily Daily PT/INR INR Goal 2 to 3 Hold Warfarin if INR in 3 or over Titrate to desided INR goal by Attending physician at [facility] Walker/Adult/Folding (Device) 1 Mis Mis Ea .ROUTE DIRECTED Oxygen tank (Oxygen) 1 Ea Tank 2 Liter JAKE.CANULA CONTINUOUS Oxygen Concentrator Portable Gaseous 2 L/min via Nasal Cannula Continuous For 99 months Digoxin 0.125 Mg Tab 0.125 Mg PO DAILY Reported Fluticasone Nasal [place] 50 Mcg/Act Naspr 50 Mcg EACH NARE DAILY 50 mcg/spray Amitriptyline (Amitriptyline HCl) 25 Mg Tab 25 Mg PO DAILY Acarbose 100 Mg Tab 100 Mg PO TID Take with first bite of meal. Lantus Inj (Insulin Glargine) 1,000 Unit/10 Ml Vial 15 Units SQ HS Duoneb (Ipratropium-Albuterol Neb) 0.5-2.5 Mg/3 Ml Neb 3 Ml NEB TID Senna S (Sennosides-Docusate Sodium) 8.6-50 Mg Tab 1 Tab PO DAILY PRN Tylenol (Acetaminophen) 325 Mg Tab 650 Mg PO Q6H PRN Vitamin D3 (Cholecalciferol) 5,000 Unit Cap 5,000 Units PO HS Amitriptyline (Amitriptyline HCl) 50 Mg Tab 50 Mg PO HS Trazodone (Trazodone HCl) 50 Mg Tab 50 Mg PO HS Gabapentin 300 Mg Cap 600 Mg PO BID Vitamin B12 (Cyanocobalamin) 100 Mcg Tab 100 Mcg PO DAILY Omeprazole 40 Mg Cap 40 Mg PO BID Atorvastatin (Atorvastatin Calcium) 40 Mg Tab 40 Mg PO DAILY Torsemide 20 Mg Tab 40 Mg PO BID Lisinopril 20 Mg Tab 20 Mg PO DAILY Bystolic (Nebivolol) 10 Mg Tab 10 Mg PO BID Finasteride 5 Mg Tab 5 Mg PO HS Do not crush. Allergies: Coded Allergies: MRI PRECAUTION (Verified Allergy, Severe, 07/10/17) Uncoded Allergies: STEROIDS (Adverse Reaction, Mild, 01/10/17) ELEVATED BLOOD SUGAR Family History Patient does not know Social History Quit smoking 30 years ago. Denies alcohol, illicit drugs. Physical Exam Vital Signs Vital Signs Date Time Temp Pulse Resp B/P (MAP) Pulse Ox O2 Delivery O2 Flow Rate FiO2 09/24/17 19:26 Nasal Cannula 4.00 09/24/17 19:26 Nasal Cannula 4.00 18 19:05 97.2 69 18 120/59 (79) Physical Exam GENERAL: This is a well-nourished, well-developed patient, in no apparent distress. SKIN: No rashes, ecchymoses or lesions. Cool and dry. Abrasion dorsum of left foot and lateral aspect of left calf. HEAD: Normocephalic. Small abrasion on the right forehead just inside the hairline. No surrounding swelling or ecchymoses. No temporal or scalp tenderness. EYES: Pupils equal round and reactive. Extraocular motions intact. No scleral icterus. No injection or drainage. ENT: Nose without bleeding, purulent drainage or septal hematoma. Throat without erythema, tonsillar hypertrophy or exudate. Uvula midline. Airway patent. NECK: Trachea midline. No JVD or lymphadenopathy. Supple, nontender, no meningeal signs. CARDIOVASCULAR: Regular rate and rhythm without murmurs, gallops, or rubs. RESPIRATORY: Bilateral crackles/wheezes GASTROINTESTINAL: Abdomen soft, non-tender, nondistended. No hepato-splenomegaly , or palpable masses. No guarding. MUSCULOSKELETAL: Bilateral 2+ edema. No calf tenderness. NEUROLOGICAL: Awake and alert. Cranial nerves II through XII intact. Motor and sensory grossly within normal limits. Normal speech. Laboratory Laboratory Tests Test 09/24/17 19:34 White Blood Count 5.8 Red Blood Count 3.29 Hemoglobin 8.6 Hematocrit 27.7 Mean Corpuscular Volume 84.1 Mean Corpuscular Hemoglobin 26.1 Mean Corpuscular Hemoglobin Concent 31.0 Red Cell Distribution Width 17.5 Platelet Count 299 Mean Platelet Volume 8.5 Neutrophils (%) (Auto) 84.2 Lymphocytes (%) (Auto) 5.5 Monocytes (%) (Auto) 5.5 Eosinophils (%) (Auto) 3.0 Basophils (%) (Auto) 1.8 Neutrophils # (Auto) 4.9 Lymphocytes # (Auto) 0.3 Monocytes # (Auto) 0.3 Eosinophils # (Auto) 0.2 Basophils # (Auto) 0.1 CBC Comment DIFF FINAL Differential Comment Prothrombin Time 13.3 Prothromb Time International Ratio 1.3 Activated Partial Thromboplast Time 28.6 Urine Color YELLOW Urine Turbidity HAZY Urine pH 5.5 Urine Specific [place] 1.015 Urine Protein 100 Urine Glucose (UA) NEG Urine Ketones NEG Urine Occult Blood MOD Urine Nitrite NEG Urine Bilirubin NEG Urine Urobilinogen LESS THAN 2.0 Urine Leukocyte Esterase NEG Urine RBC 92 Urine WBC 4 Urine Squamous Epithelial Cells <1 Urine Bacteria MOD Urine Hyaline Casts 10 Urine Mucus FEW Microscopic Urinalysis Comment CULTURE INDICATED Blood Urea Nitrogen 31 Creatinine 2.38 Random Glucose 161 Total Protein 6.8 Albumin 3.0 Calcium Level 8.7 Alkaline Phosphatase 60 Aspartate Amino Transf (AST/SGOT) 9 Alanine Aminotransferase (ALT/SGPT) 9 Total Bilirubin 0.6 Sodium Level 139 Potassium Level 4.3 Chloride Level 96 Carbon Dioxide Level 37.3 Anion Gap 6 Estimat Glomerular Filtration Rate 26 B-Type Natriuretic Peptide 528 Date/Time Source Procedure Growth Status 09/24/17 19:44 Blood Peripheral Aerobic Blood Culture Pending Received 09/24/17 19:44 Blood Peripheral Anaerobic Blood Culture Pending Received 09/24/17 19:48 Nasal Washing Influenza Types A,B Antigen (NELSON) - Final NEGATIVE FOR FLU A AND B ANTIGEN.... Complete 09/24/17 19:34 Urine Random Urine Urine Culture Pending Received Result Diagram: 09/24/17193309/24/171933 Caprini VTE Risk Assessment Caprini VTE Risk Assessment: Mod/High Risk (score >= 2) Caprini Risk Assessment Model Point Value = 1 Point Value = 2 Point Value = 3 Point Value = 5 Age 41-60 Minor surgery BMI > 25 kg/m2 Swollen legs Varicose veins or History of unexplained or recurrent spontaneous Oral contraceptives or hormone replacement Sepsis (< 1 month) Serious lung disease, including pneumonia (< 1 month) Abnormal pulmonary function Acute myocardial infarction Congestive heart failure (< 1 month) History of inflammatory bowel disease Medical patient at bed rest Age 61-74 Arthroscopic surgery Major open surgery (> 45 min) Laparoscopic surgery (> 45 min) Malignancy Confined to bed (> 72 hours) Immobilizing plaster cast Central venous access Age >= 75 History of VTE Family history of VTE Factor V Leiden Prothrombin [id number] Lupus anticoagulant Anticardiolipin antibodies Elevated serum homocysteine Heparin-induced thrombocytopenia Other congenital or acquired thrombophilia Stroke (< 1 month) Elective arthroplasty Hip, pelvis, or leg fracture Acute spinal cord injury (< 1 month) Prophylaxis Regimen Total Risk Factor Score Risk Level Prophylaxis Regimen 0-1 Low Early ambulation 2 Moderate Order ONE of the following: *Sequential Compression Device (SCD) *Heparin 5000 units SQ BID 3-4 Higher Order ONE of the following medications: *Heparin 5000 units SQ TID *Enoxaparin/Lovenox 40 mg SQ daily (WT < 150 kg, CrCl > 30 mL/min) *Enoxaparin/Lovenox 30 mg SQ daily (WT < 150 kg, CrCl > 10-29 mL/min) *Enoxaparin/Lovenox 30 mg SQ BID (WT < 150 kg, CrCl > 30 mL/min) AND/OR *Sequential Compression Device (SCD) 5 or more Highest Order ONE of the following medications: *Heparin 5000 units SQ TID (Preferred with Epidurals) *Enoxaparin/Lovenox 40 mg SQ daily (WT < 150 kg, CrCl > 30 mL/min) *Enoxaparin/Lovenox 30 mg SQ daily (WT < 150 kg, CrCl > 10-29 mL/min) *Enoxaparin/Lovenox 30 mg SQ BID (WT < 150 kg, CrCl > 30 mL/min) AND *Sequential Compression Device (SCD) Assessment and Plan Assessment and Plan Assessment/plan: 1. Failure to thrive/generalized weakness Patient without urination today at home Had no by mouth intake at home Status post fall Monitor I's and O's, insert Cortes if needed Patient unable to be safely discharged to home, would benefit from placement Case management consulted 2. Acute on chronic renal insufficiency Creatinine 2.38, was 1.3 yesterday Encourage by mouth intake, IV fluids if needed, monitor for signs of volume overload Monitor renal function Avoid nephrotoxic agents 3. Pneumonia CXR as above Azithromycin/Ceftin Duo nebs 4. CHF Last echo done in 06/09/17 showed an EF of 55-60% The patient with pulmonary edema on chest x-ray Status post IV Lasix 1 in the ED Monitor for signs of volume overload Holding IV diuretics for acute on chronic kidney injury BNP 528 today, was 659 on 09/22 5. Atrial fibrillation Continue Coumadin INR subtherapeutic at 1.3 Continue home medications 6. Insulin-dependent diabetes mellitus Holding home Lantus for decreased PO intake and BG of 161 Sliding scale insulin Monitor blood 7. Hypertension/hyperlipidemia Continue home medications 8. 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 In the case of services not specified as inpatient-only, they are appropriately provided as inpatient services in accordance with the 2-midnight benchmark. Estimated LOS (days): 2 2 days is the estimated time the patient will need to remain in the hospital, assuming treatment plan goals are met and no additional complications. Post-Hospital Plan: Not yet determined Meeta Koch MD Sep 24, 2017 21:54
[2017-09-24 22:00] VITALS: PULSE 73
[2017-09-24] MEDS: HEPARIN SODIUM - SQ 10,000 UNITS/ML VIAL SQ SCH (22:00)
[2017-09-24] MEDS: RESP: ALBUTEROL 2.5 MG/IPRATROPIUM 0.5 MG NEB (SCH) NEB (22:35)
[2017-09-24 22:45] VITALS: BP 113/58; PULSE 72; RESP 20; TEMP 99.4; O2SAT 90
[2017-09-25 04:00] VITALS: BP 115/55; PULSE 69; RESP 20; TEMP 97.6; O2SAT 93
[2017-09-25] MEDS: RESP: ALBUTEROL 2.5 MG/IPRATROPIUM 0.5 MG NEB (SCH) NEB ×4 (04:00→21:41)
[2017-09-25 04:55] LABS: BICARBONATE 37.3 MEQ/L (21.0-32.0); CALCIUM 8.7 MG/DL (8.5-10.1); CREATININE 2.33 MG/DL (0.60-1.30)
[2017-09-25] MEDS: HEPARIN SODIUM - SQ 10,000 UNITS/ML VIAL SQ SCH (05:43)
[2017-09-25 08:00] VITALS: BP 117/56; PULSE 70; RESP 19; TEMP 97.7; O2SAT 90
[2017-09-25] MEDS ORDERED: SODIUM CHLORIDE 0.9% FLUSH 10 ML FLUSH IV FLUSH SCH (09:00)
[2017-09-25] MEDS: CEFUROXIME AXETIL 500 MG TAB PO SCH ×2 (09:04→20:32)
[2017-09-25] MEDS: NEBIVOLOL 10 MG TAB PO SCH ×2 (09:05→20:32)
[2017-09-25] MEDS: LORazepam 2 MG TAB PO PRN ×2 (09:05→16:06)
[2017-09-25] MEDS: LISINOPRIL 20 MG TAB PO SCH (09:05)
[2017-09-25] MEDS: ATORVASTATIN 40 MG TAB PO SCH (09:05)
[2017-09-25] MEDS: AZITHROMYCIN 250 MG TAB PO SCH (09:05)
[2017-09-25] MEDS: DIGOXIN 0.125 MG TAB PO SCH (09:05)
[2017-09-25] MEDS: GABAPENTIN 300 MG CAP PO SCH ×2 (09:05→20:32)
[2017-09-25] MEDS: TORSEMIDE 20 MG TAB PO SCH ×2 (09:06→20:32)
[2017-09-25] MEDS: INSULIN ASPART SUPPLEMENTAL SCALE SQ SCH ×4 (09:07→21:00)
[2017-09-25 09:14] VITALS: O2SAT 89
[2017-09-25] MEDS ORDERED: METOCLOPRAMIDE HCL 10 MG/2 ML VIAL IV PUSH PRN (09:45)
[2017-09-25] MEDS ORDERED: oxyCODONE/ACETAMINOPHEN 10 MG/325 MG TAB PO PRN (09:45)
[2017-09-25] MEDS ORDERED: MORPHINE SULFATE 2 MG/ML INJ IV PUSH PRN ×2 (09:45)
[2017-09-25] MEDS ORDERED: DOCUSATE SODIUM 50 MG/SENNA 8.6 MG TAB PO PRN (09:45)
[2017-09-25] MEDS ORDERED: SENNOSIDES 8.6 MG TAB PO PRN (09:45)
[2017-09-25] MEDS ORDERED: NALOXONE HCL 0.4 MG/ML AMP IV PUSH PRN (09:45)
[2017-09-25] MEDS ORDERED: MAGNESIUM HYDROXIDE SUSP 30 ML CUP PO PRN (09:45)
[2017-09-25] MEDS ORDERED: oxyCODONE/ACETAMINOPHEN 5 MG/325 MG TAB PO PRN (09:45)
[2017-09-25] MEDS ORDERED: LACTULOSE SYRUP 20 GM/30 ML CUP PO PRN (09:45)
[2017-09-25] MEDS ORDERED: SODIUM CHLORIDE 0.9% FLUSH 10 ML FLUSH IV FLUSH PRN (09:45)
[2017-09-25] MEDS ORDERED: BISACODYL 10 MG SUPP RECTAL PRN (09:45)
[2017-09-25] MEDS ORDERED: ACETAMINOPHEN 325 MG TAB PO PRN ×2 (09:45)
--- NOTE | 2017-09-25 09:52 | HHI.PR ---
Subjective Remarks 81-year-old male with a past medical history significant for anemia, insulin- dependent diabetes mellitus, atrial fibrillation status post AICD placement, anticoagulated on Coumadin, hypertension and hyperlipidemia presents to the emergency department for evaluation of multiple complaints. The patient was discharged from the hospital earlier today where he was being treated for community-acquired pneumonia and a GI bleed. He was discharged to home with azithromycin and Ceftin for his pneumonia and gastroenterology recommends follow -up with hematology and gastroenterology as an outpatient there are no signs of active bleeding at the patient is anticoagulated. The patient's reports that upon their arrival home today patient fell and hit his head. She denies that he lost consciousness. She reports that she called EMS because the patient had not urinated, had not taken anything by mouth and could not stand since his discharge from the hospital earlier today. She denies any chest pain/ shortness of breath. He denies dizziness/lightheadedness. No fever/chills. 2-4 WILL NEED TO GO TO SNF PT AND OT UNABLE TO URINATE-- PLACE [facility] AM LABS DW RN AND PT AND Objective Vitals Vital Signs Date Time Temp Pulse Resp B/P (MAP) Pulse Ox O2 Delivery O2 Flow Rate FiO2 09/25/17 09:14 89 Nasal Cannula 4.00 09/25/17 04:00 97.6 69 20 115/55 (75) 93 09/24/17 22:45 99.4 72 20 113/58 (76) 90 09/24/17 22:38 Nasal Cannula 4.00 09/24/17 22:00 73 09/24/17 19:26 Nasal Cannula 4.00 09/24/17 19:26 Nasal Cannula 4.00 09/24/17 19:05 97.2 69 18 120/59 (79) 90 I/O 09/24/17 09/24/17 09/24/17 09/25/17 09/25/17 09/25/17 07:00 15:00 23:00 07:00 15:00 23:00 Intake Total 120 ml Balance 120 ml Intake Oral 120 ml Bladder Scan Volume Amount 550 ml # Bowel Movements 0 Result Diagram: 09/24/17193309/25/17 0407 Other Results Laboratory Tests Test 09/24/17 19:34 09/25/17 04:07 White Blood Count 5.8 TH/MM3 Red Blood Count 3.29 MIL/MM3 Hemoglobin 8.6 GM/DL Hematocrit 27.7 % Mean Corpuscular Volume 84.1 FL Mean Corpuscular Hemoglobin 26.1 PG Mean Corpuscular Hemoglobin Concent 31.0 % Red Cell Distribution Width 17.5 % Platelet Count 299 TH/MM3 Mean Platelet Volume 8.5 FL Neutrophils (%) (Auto) 84.2 % Lymphocytes (%) (Auto) 5.5 % Monocytes (%) (Auto) 5.5 % Eosinophils (%) (Auto) 3.0 % Basophils (%) (Auto) 1.8 % Neutrophils # (Auto) 4.9 TH/MM3 Lymphocytes # (Auto) 0.3 TH/MM3 Monocytes # (Auto) 0.3 TH/MM3 Eosinophils # (Auto) 0.2 TH/MM3 Basophils # (Auto) 0.1 TH/MM3 CBC Comment DIFF FINAL Differential Comment Prothrombin Time 13.3 SEC Prothromb Time International Ratio 1.3 RATIO Activated Partial Thromboplast Time 28.6 SEC Urine Color YELLOW Urine Turbidity HAZY Urine pH 5.5 Urine Specific David 1.015 Urine Protein 100 mg/dL Urine Glucose (UA) NEG mg/dL Urine Ketones NEG mg/dL Urine Occult Blood MOD Urine Nitrite NEG Urine Bilirubin NEG Urine Urobilinogen LESS THAN 2.0 MG/DL Urine Leukocyte Esterase NEG Urine RBC 92 /hpf Urine WBC 4 /hpf Urine Squamous Epithelial Cells <1 /hpf Urine Bacteria MOD /hpf Urine Hyaline Casts 10 /lpf Urine Mucus FEW /lpf Microscopic Urinalysis Comment CULTURE INDICATED Blood Urea Nitrogen 31 MG/DL 33 MG/DL Creatinine 2.38 MG/DL 2.33 MG/DL Random Glucose 161 MG/DL 124 MG/DL Total Protein 6.8 GM/DL Albumin 3.0 GM/DL Calcium Level 8.7 MG/DL 8.7 MG/DL Alkaline Phosphatase 60 U/L Aspartate Amino Transf (AST/SGOT) 9 U/L Alanine Aminotransferase (ALT/SGPT) 9 U/L Total Bilirubin 0.6 MG/DL Sodium Level 139 MEQ/L 137 MEQ/L Potassium Level 4.3 MEQ/L 4.3 MEQ/L Chloride Level 96 MEQ/L 96 MEQ/L Carbon Dioxide Level 37.3 MEQ/L 37.3 MEQ/L Anion Gap 6 MEQ/L 4 MEQ/L Estimat Glomerular Filtration Rate 26 ML/MIN 27 ML/MIN B-Type Natriuretic Peptide 528 PG/ML Imaging Last Impressions Chest X-Ray 09/24/171906 Signed Impressions: Service Date/Time: Sunday, September 24, 2017 20:59 - CONCLUSION: Worsening pulmonary edema. Lonnie Martines MD Objective Remarks GENERAL: AWAKE ALERT TALKATIVE AND COOPERATIVE ORIENTED X3 SKIN: Warm and dry. HEAD: Atraumatic. Normocephalic. EYES: Pupils equal and round. No scleral icterus. No injection or drainage. EOMI ENT: No nasal bleeding or discharge. Mucous membranes pink and moist. TONGUE MIDLINE NECK: Trachea midline. No JVD. SUPPLE CARDIOVASCULAR: IRRegular rate and rhythm. S1, S2 NO S3 OR S4 RESPIRATORY: No accessory muscle use. Clear to auscultation. Breath sounds equal bilaterally. GASTROINTESTINAL: Abdomen soft, non-tender, nondistended. Hepatic and splenic margins not palpable. MUSCULOSKELETAL: Extremities without clubbing, cyanosis, or edema. No obvious deformities. NEUROLOGICAL: Awake and alert. No obvious cranial nerve deficits. Motor grossly within normal limits. 4 out of 5 muscle strength in the arms and legs. Normal speech. PSYCHIATRIC: Appropriate mood and affect; insight and judgment ABnormal. Procedures NONE Medications and IVs Current Medications Sodium Chloride (NS Flush) 2 ml UNSCH PRN IVF FLUSH AFTER USING IV ACCESS; Start 09/24/17 at 19:15; Stop 09/24/17 at 22:15; Status DC Acetaminophen (Tylenol) 650 mg ONCE ONCE PO Last administered on 09/24/17at 20: 52; Start 09/24/17 at 20:45; Stop 09/24/17 at 20:46; Status DC Ceftriaxone Sodium 1000 mg/ Sodium Chloride 100 ml @ 200 mls/hr ONCE ONCE IV ; Start 09/24/17 at 21:00; Stop 09/24/17 at 21:29; Status DC Azithromycin 500 mg/Sodium Chloride 250 ml @ 250 mls/hr ONCE ONCE IV ; Start 09/24/17 at 21:00; Stop 09/24/17 at 21:59; Status DC Furosemide (Lasix Inj) 40 mg ONCE ONCE IV PUSH Last administered on 09/24/17at 21:53; Start 09/24/17 at 21:30; Stop 09/24/17 at 21:31; Status DC Sodium Chloride (NS Flush) 2 ml UNSCH PRN IV FLUSH FLUSH AFTER USING IV ACCESS ; Start 09/24/17 at 21:30 Sodium Chloride (NS Flush) 2 ml BID IV FLUSH Last administered on 09/25/17at 09: 05; Start 09/25/17 at 09:00 Acetaminophen (Tylenol) 650 mg Q4H PRN PO TEMP > 100.4 Last administered on 09/25at 06:48; Start 09/24/17 at 21:30 Ondansetron HCl (Zofran Inj) 4 mg Q6H PRN IVP NAUSEA OR VOMITING; Start at 21:30 Naloxone HCl (Narcan Inj) 0.4 mg UNSCH PRN IV PUSH SEE LABEL COMMENTS; Start at 21:30 Albuterol/ Ipratropium (Duoneb Neb) 1 ampule Q2HR NEB PRN NEB sob, wheeze; Start 09/24/17 at 21:30; Stop 09/24/17 at 21:52; Status DC Albuterol/ Ipratropium (Duoneb Neb) 1 ampule Q6HR NEB NEB Last administered on 09/25/17at 09:07; Start 09/24/17 at 22:00 Azithromycin (Zithromax) 250 mg DAILY PO Last administered on 09/25/17at 09:05; Start 09/25/17 at 09:00; Stop 09/29/17 at 10:00 Cefuroxime Axetil (Ceftin) 500 mg Q12HR PO Last administered on 09/25/17at 09:04 ; Start 09/25/17 at 09:00; Stop 10/09/17 at 10:00 Albuterol/ Ipratropium (Duoneb Neb) 1 ampule Q4HR NEB PRN NEB sob/wheezing; Start 09/24/17 at 21:45 Dextrose (D50w (Vial) Inj) 50 ml UNSCH PRN IV PUSH HYPOGLYCEMIA-SEE COMMENTS; Start 09/24/17 at 21:45 Glucagon (Glucagon Inj) 1 mg UNSCH PRN OTHER HYPOGLYCEMIA-SEE COMMENTS; Start 09/24/17 at 21:45 Insulin Aspart (NovoLOG SUPPLEMENTAL SCALE) 1 ACHS SLIDING SCALE SQ Last administered on 09/25/17at 09:07; Start 09/25/17 at 08:00 Pharmacy Profile Note 0 ml @ 0 mls/hr UNSCH OTHER ; Start 09/24/17 at 22:00 Atorvastatin Calcium (Lipitor) 40 mg DAILY PO Last administered on 09/25/17at 09: 05; Start 09/25/17 at 09:00 Digoxin (Lanoxin) 0.125 mg DAILY PO Last administered on 09/25/17at 09:05; Start 09/25/17 at 09:00 Finasteride (Proscar) 5 mg HS PO ; Start 09/25/17 at 21:00 Gabapentin (Neurontin) 600 mg BID PO Last administered on 09/25/17at 09:05; Start 09/25/17 at 09:00 Lisinopril (Prinivil) 20 mg DAILY PO Last administered on 09/25/17at 09:05; Start 09/25/17 at 09:00 Lorazepam (Ativan) 2 mg Q6H PRN PO ANXIETY Last administered on 09/25/17at 09:05 ; Start 09/24/17 at 22:00 Nebivolol (Bystolic) 10 mg BID PO Last administered on 09/25/17at 09:05; Start at 09:00 Torsemide (Demadex) 40 mg BID PO Last administered on 09/25/17at 09:06; Start 09/25/17 at 09:00 Trazodone HCl (Desyrel) 50 mg HS PO ; Start 09/25/17 at 21:00 Warfarin Sodium (Coumadin) 5 mg DAILY@1600 PO ; Start 09/25/17 at 16:00 Heparin Sodium (Porcine) (Heparin Inj) 5,000 units Q8HR SQ Last administered on 09/25/17at 05:43; Start 09/24/17 at 22:00 Urinary Catheter: Yes Assessment to: Continue Lama insert reason: Obstruction/Retention A/P Assessment and Plan Assessment and Plan Assessment/plan: 1. Failure to thrive/generalized weakness Patient without urination today at home Had no by mouth intake at home Status post fall Monitor I's and O's, insert Lama if needed Patient unable to be safely discharged to home, would benefit from placement Case management consulted 2. Acute on chronic renal insufficiency Creatinine 2.38, was 1.3 yesterday Encourage by mouth intake, IV fluids if needed, monitor for signs of volume overload Monitor renal function Avoid nephrotoxic agents PLACE [facility] ADD FLOMAX 3. Pneumonia CXR as above Azithromycin/Ceftin Duo nebs 4. CHF Last echo done in 06/09/17 showed an EF of 55-60% The patient with pulmonary edema on chest x-ray Status post IV Lasix 1 in the ED Monitor for signs of volume overload Holding IV diuretics for acute on chronic kidney injury BNP 528 today, was 659 on 2/1 AM LABS 5. Atrial fibrillation Continue Coumadin INR subtherapeutic at 1.3 INCREASE COUMADIN TO 7.5 DAILY INR Continue home medications 6. Insulin-dependent diabetes mellitus Holding home Lantus for decreased PO intake and BG of 161 Sliding scale insulin Monitor blood 7. Hypertension/hyperlipidemia Continue home medications 8. 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
[2017-09-25] MEDS: PANTOPRAZOLE SOD 40 MG DELAYED RELEASE TAB PO SCH ×2 (10:38→20:32)
[2017-09-25] MEDS: ENOXAPARIN SODIUM 100 MG/ML SYRINGE SQ SCH (10:38)
[2017-09-25 11:59] LABS: AUTOMATED NEUTROPHIL # 2.6 TH/MM3 (1.8-7.7); BASOPHIL # 0.1 TH/MM3 (0-0.2); BASOPHIL % 2.7 % (0.0-2.0); EOSINOPHIL # 0.2 TH/MM3 (0-0.4); EOSINOPHIL % 4.6 % (0.0-4.0); HEMOGLOBIN 7.9 GM/DL (13.0-17.0); LYMPH % 8.5 % (9.0-44.0); LYMPHOCYTE # 0.3 TH/MM3 (1.0-4.8); MEAN CELL VOLUME 83.4 FL (80.0-100.0); MEAN CORPUSCULAR HEMOGLOBIN 26.3 PG (27.0-34.0); MEAN CORPUSCULAR HGB CONC 31.6 % (32.0-36.0); MEAN PLATELET VOLUME 8.2 FL (7.0-11.0); MONOCYTE # 0.3 TH/MM3 (0-0.9); NEUT % 76.2 % (16.0-70.0); PLATELET COUNT 223 TH/MM3 (150-450); WHITE BLOOD COUNT 3.4 TH/MM3 (4.0-11.0)
[2017-09-25 12:00] VITALS: BP 111/54; PULSE 72; RESP 17; TEMP 99.6; O2SAT 91
[2017-09-25 12:09] LABS: INTERNATIONAL NORMALIZED RATIO 1.4 RATIO; PROTHROMBIN TIME - PATIENT 13.8 SEC (9.8-11.6)
--- NOTE | 2017-09-25 12:57 | EKG ---
Date Performed: 09/24/2017 Time Performed: 21:11:43 PTAGE: 81 years EKG: ELECTRONIC VENTRICULAR PACEMAKER ABNORMAL RHYTHM ECG Compared to PREVIOUS TRACING , patient is now 100% ventricular paced. PREVIOUS TRACIN09/22/2017 19 .22.08 DOCTOR: Leonardo Nichole Interpretating Date/Time 09/25/2017 12:55:46
[2017-09-25] MEDS: FLUTICASONE PROPIONATE 50 MCG/ACT 16 GM NASAL SPRAY EACH NARE SCH (14:03)
[2017-09-25] MEDS: CYANOCOBALAMIN 100 MCG TAB PO SCH (14:03)
[2017-09-25 16:00] VITALS: BP 107/54; PULSE 70; RESP 18; TEMP 99.2; O2SAT 92
[2017-09-25] MEDS ORDERED: WARFARIN SOD 5 MG TAB PO SCH (16:00)
[2017-09-25] MEDS: WARFARIN SOD 5 MG TAB PO SCH (16:06)
[2017-09-25] MEDS: TAMSULOSIN HCL 0.4 MG CAP PO SCH (17:24)
[2017-09-25 20:00] VITALS: BP 107/49; PULSE 69; PULSE 70; RESP 13; TEMP 97.9; O2SAT 91
[2017-09-25] MEDS: traZODone HCL 50 MG TAB PO SCH (20:31)
[2017-09-25] MEDS: FINASTERIDE 5 MG TAB PO SCH (20:32)
[2017-09-25] MEDS: CHOLECALCIFEROL (VIT D3) 5000 UNIT CAP PO SCH (20:32)
[2017-09-25] MEDS: DOCUSATE SODIUM 50 MG/SENNA 8.6 MG TAB PO SCH (20:32)
[2017-09-25] MEDS: SODIUM CHLORIDE 0.9% FLUSH 10 ML FLUSH IV FLUSH SCH (20:43)
[2017-09-25] MEDS: INSULIN DETEMIR 100 UNITS/ML VIAL SQ SCH (21:14)
[2017-09-26] VITALS (8 sets, daily range): BP systolic 93–123; BP diastolic 49–65; PULSE 62–76; RESP 13–16; TEMP 97.2–99.4; O2SAT 90–98
[2017-09-26 06:48] LABS: AUTOMATED NEUTROPHIL # 3.6 TH/MM3 (1.8-7.7); BASOPHIL # 0.1 TH/MM3 (0-0.2); BASOPHIL % 2.1 % (0.0-2.0); EOSINOPHIL # 0.2 TH/MM3 (0-0.4); EOSINOPHIL % 4.4 % (0.0-4.0); HEMOGLOBIN 8.4 GM/DL (13.0-17.0); LYMPH % 12.7 % (9.0-44.0); LYMPHOCYTE # 0.6 TH/MM3 (1.0-4.8); MEAN CELL VOLUME 82.8 FL (80.0-100.0); MEAN CORPUSCULAR HEMOGLOBIN 26.8 PG (27.0-34.0); MEAN CORPUSCULAR HGB CONC 32.3 % (32.0-36.0); MEAN PLATELET VOLUME 8.6 FL (7.0-11.0); MONO % 8.5 % (0.0-8.0); MONOCYTE # 0.4 TH/MM3 (0-0.9); NEUT % 72.3 % (16.0-70.0); PLATELET COUNT 288 TH/MM3 (150-450); RED BLOOD COUNT 3.14 MIL/MM3 (4.50-5.90); RED CELL DISTRIBUTION WIDTH 17.2 % (11.6-17.2); WHITE BLOOD COUNT 4.9 TH/MM3 (4.0-11.0)
[2017-09-26 06:52] LABS: INTERNATIONAL NORMALIZED RATIO 1.3 RATIO; PROTHROMBIN TIME - PATIENT 13.4 SEC (9.8-11.6)
[2017-09-26 07:35] LABS: ALBUMIN 2.7 GM/DL (3.4-5.0); AST (GOT) 11 U/L (15-37); BICARBONATE 37.9 MEQ/L (21.0-32.0); BLOOD UREA NITROGEN 37 MG/DL (7-18); CALCIUM 8.5 MG/DL (8.5-10.1); CHLORIDE 97 MEQ/L (98-107); CREATININE 2.19 MG/DL (0.60-1.30); GLOMERULAR FILTRATION RATE 29 ML/MIN (>89); GLUCOSE,RANDOM 75 MG/DL (74-106); SODIUM (NA) 139 MEQ/L (136-145)
[2017-09-26 07:44] LABS: ALKALINE PHOSPHATASE 53 U/L (45-117); ALT (GPT) 8 U/L (12-78); FREE T4 1.07 NG/DL (0.76-1.46); TOTAL BILIRUBIN ADULT 0.5 MG/DL (0.2-1.0); TOTAL PROTEIN 6.3 GM/DL (6.4-8.2)
[2017-09-26] MEDS: INSULIN ASPART SUPPLEMENTAL SCALE SQ SCH ×4 (08:00→21:00)
[2017-09-26] MEDS: RESP: ALBUTEROL 2.5 MG/IPRATROPIUM 0.5 MG NEB (SCH) NEB ×4 (08:23→21:51)
--- NOTE | 2017-09-26 08:26 | HHI.PR ---
Subjective Remarks resting comfortably with no acute distress. denies pain or sob. good urine output. no new complaints. Objective Vitals Vital Signs Date Time Temp Pulse Resp B/P (MAP) Pulse Ox O2 Delivery O2 Flow Rate FiO2 09/26/17 04:00 97.2 71 14 107/49 (68) 98 09/26/17 00:00 98.2 62 13 110/52 (71) 97 09/25/17 21:50 Nasal Cannula 4.00 09/25/17 20:00 69 09/25/17 20:00 97.9 70 13 107/49 (68) 91 09/25/17 16:00 99.2 70 18 107/54 (71) 92 09/25/17 12:00 99.6 72 17 111/54 (73) 91 09/25/17 09:14 89 Nasal Cannula 4.00 I/O 09/25/17 09/25/17 09/25/17 09/26/17 09/26/17 09/26/17 07:00 15:00 23:00 07:00 15:00 23:00 Intake Total 120 ml 540 ml 480 ml Output Total 750 ml 550 ml Balance 120 ml -210 ml -70 ml Intake Oral 120 ml 540 ml 480 ml Output Urine Total 750 ml 550 ml Bladder Scan Volume Amount 550 ml # Voids 1 # Bowel Movements 0 3 0 Result Diagram: 09/26/17 0502 09/26/17 0502 Imaging Last Impressions Chest X-Ray 09/24/171906 Signed Impressions: Service Date/Time: Sunday, September 24, 2017 20:59 - CONCLUSION: Worsening pulmonary edema. Lonnie Martines MD Objective Remarks GENERAL: This is a well-nourished, well-developed patient, in no apparent distress. CARDIOVASCULAR: Regular rate and regular rhythm without murmurs, gallops, or rubs. RESPIRATORY: Clear to auscultation. Breath sounds equal bilaterally. No wheezes , rales, or rhonchi. GASTROINTESTINAL: Abdomen soft, non-tender, nondistended. Normal, active bowel sounds MUSCULOSKELETAL: Extremities without clubbing, cyanosis, or edema. NEURO: Alert & Oriented x4 to person, place, time, situation. Moves all ext x4 Procedures NONE Medications and IVs Inpatient Medications Acetaminophen (Tylenol) 650 mg Q6H PRN PO PAIN SCALE 1 TO 2; Start 09/25/17 at 09:45 Albuterol/ Ipratropium (Duoneb Neb) 1 ampule Q4HR NEB PRN NEB sob/wheezing; Start 09/24/17 at 21:45 Atorvastatin Calcium (Lipitor) 40 mg DAILY PO Last administered on 09/25/17at 09: 05; Start 09/25/17 at 09:00 Azithromycin (Zithromax) 250 mg DAILY PO Last administered on 09/25/17at 09:05; Start 09/25/17 at 09:00; Stop 09/29/17 at 10:00 Azithromycin 500 mg/Sodium Chloride 250 ml @ 250 mls/hr ONCE ONCE IV ; Start 09/24/17 at 21:00; Stop 09/24/17 at 21:59; Status DC Bisacodyl (Dulcolax Supp) 10 mg DAILY PRN RECTAL SEVERE CONSITIPATION; Start at 09:45 Ceftriaxone Sodium 1000 mg/ Sodium Chloride 100 ml @ 200 mls/hr ONCE ONCE IV ; Start 09/24/17 at 21:00; Stop 09/24/17 at 21:29; Status DC Cefuroxime Axetil (Ceftin) 500 mg Q12HR PO Last administered on 09/25/17at 20:32 ; Start 09/25/17 at 09:00; Stop 10/09/17 at 10:00 Cholecalciferol (Vitamin D3) 5,000 units HS PO Last administered on 09/25/17at 20 :32; Start 09/25/17 at 21:00 Cyanocobalamin (Vitamin B12) 100 mcg DAILY PO Last administered on 09/25/17at 14: 03; Start 09/25/17 at 10:00 Dextrose (D50w (Vial) Inj) 50 ml UNSCH PRN IV PUSH HYPOGLYCEMIA-SEE COMMENTS; Start 09/24/17 at 21:45 Digoxin (Lanoxin) 0.125 mg DAILY PO Last administered on 09/25/17at 09:05; Start 09/25/17 at 09:00 Enoxaparin Sodium (Lovenox Inj) 100 mg Q24H SQ Last administered on 09/25/17at 10 :38; Start 09/25/17 at 10:00 Finasteride (Proscar) 5 mg HS PO Last administered on 09/25/17at 20:32; Start 09/25/17 at 21:00 Fluticasone Propionate (Flonase Osvaldo Spr) 2 spray DAILY EACH NARE Last administered on 09/25/17 14:03; Start 09/25/17 at 09:45 Furosemide (Lasix Inj) 40 mg ONCE ONCE IV PUSH Last administered on 09/24/17 21:53; Start 09/24/17 at 21:30; Stop 09/24/17 at 21:31; Status DC Gabapentin (Neurontin) 600 mg BID PO Last administered on 09/25/17at 20:32; Start 09/25/17 at 09:00 Glucagon (Glucagon Inj) 1 mg UNSCH PRN OTHER HYPOGLYCEMIA-SEE COMMENTS; Start 09/24/17 at 21:45 Heparin Sodium (Porcine) (Heparin Inj) 5,000 units Q8HR SQ Last administered on 09/25/17 05:43; Start 09/24/17 at 22:00; Stop 09/25/17 at 09:47; Status DC Insulin Aspart (NovoLOG SUPPLEMENTAL SCALE) 1 ACHS SLIDING SCALE SQ Last administered on 09/25/17at 17:24; Start 09/25/17 at 08:00 Insulin Detemir (Levemir Inj) 15 units HS SQ Last administered on 09/25/17 21: 14; Start 09/25/17 at 21:00 Lactulose (Lactulose Liq) 30 ml DAILY PRN PO SEVERE CONSITIPATION; Start at 09:45 Lisinopril (Prinivil) 20 mg DAILY PO Last administered on 09/25/17 09:05; Start 09/25/17 at 09:00 Lorazepam (Ativan) 2 mg Q6H PRN PO ANXIETY Last administered on 09/25/17at 16:06 ; Start 09/24/17 at 22:00 Magnesium Hydroxide (Milk Of Magnesia Liq) 30 ml Q12H PRN PO Mild constipation ; Start 09/25/17 at 09:45 Metoclopramide HCl (Reglan Inj) 5 mg Q6H PRN IV PUSH NAUSEA OR VOMITING; Start 09/25/17 at 09:45 Morphine Sulfate (Morphine Inj) 4 mg Q3H PRN IV PUSH Pain 6-10;if unable to take PO; Start 09/25/17 at 09:45 Naloxone HCl (Narcan Inj) 0.4 mg UNSCH PRN IV PUSH SEE LABEL COMMENTS; Start at 09:45 Nebivolol (Bystolic) 10 mg BID PO Last administered on 09/25/17 20:32; Start at 09:00 Ondansetron HCl (Zofran Inj) 4 mg Q6H PRN IVP NAUSEA OR VOMITING; Start at 09:45 Oxycodone/ Acetaminophen (Percocet 5-325 Mg) 1 tab Q6H PRN PO PAIN SCALE 3 TO 5 Last administered on 09/26/17 05:13; Start 09/25/17 at 09:45 Oxycodone/ Acetaminophen (Percocet 10-325 Mg) 1 tab Q6H PRN PO PAIN SCALE 6 TO 10 Last administered on 09/25/17 10:38; Start 09/25/17 at 09:45 Pantoprazole Sodium (Protonix) 40 mg BID PO Last administered on 09/25/17 20:32 ; Start 09/25/17 at 10:15 Patient Medication Teaching (Coumadin Booklet) 1 ONCE ONCE OTHER Last administered on 09/25/17 16:06; Start 09/25/17 at 16:00; Stop 09/25/17 at 16:01; Status DC Pharmacy Profile Note 0 ml @ 0 mls/hr UNSCH OTHER ; Start 09/24/17 at 22:00 Senna/Docusate Sodium (Helene-Colace) 1 tab BID PO Last administered on 09/25/17 20:32; Start 09/25/17 at 21:00 Sennosides (Senokot) 17.2 mg Q12H PRN PO Moderate constipation; Start 09/25/17 at 09:45 Sodium Chloride (NS Flush) 2 ml BID IV FLUSH Last administered on 09/25/17 20: 43; Start 09/25/17 at 21:00 Tamsulosin HCl (Flomax) 0.4 mg DAILY@1800 PO Last administered on 09/25/17 17: 24; Start 09/25/17 at 18:00 Torsemide (Demadex) 40 mg BID PO Last administered on 09/25/17 20:32; Start 09/25/17 at 09:00 Trazodone HCl (Desyrel) 50 mg HS PO Last administered on 2/4/18at 20:31; Start 09/25/17 at 21:00 Warfarin Sodium (Coumadin) 7.5 mg DAILY@1600 PO Last administered on 09/25/17at 16:06; Start 09/25/17 at 16:00 A/P Assessment and Plan 1. Failure to thrive/generalized weakness Had no by mouth intake at home Status post fall Monitor I's and O's, continue with foly cath today. Patient unable to be safely discharged to home, would benefit from placement Case management consulted 2. Acute on chronic renal insufficiency Encourage by mouth intake, IV fluids if needed Monitor renal function Avoid nephrotoxic agents luna in place; will remove tomorrow if renal function continues to improve. 3. Pneumonia Azithromycin/Ceftin Duo nebs 4. CHF Last echo done in 06/09/17 showed an EF of 55-60% The patient with pulmonary edema on chest x-ray Status post IV Lasix 1 in the ED Monitor for signs of volume overload Holding diuretics for acute on chronic kidney injury 5. Atrial fibrillation Continue Coumadin INR subtherapeutic - continue Coumadin with Lovenox bridge. Continue home medications 6. Insulin-dependent diabetes mellitus Holding home Lantus for decreased PO intake and BG of 161 Sliding scale insulin Monitor blood 7. Hypertension/hyperlipidemia Continue home medications 8. 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 Tomás Carranza MD Sep 26, 2017 08:26
[2017-09-26] MEDS: DIGOXIN 0.125 MG TAB PO SCH (09:00)
[2017-09-26] MEDS: NEBIVOLOL 10 MG TAB PO SCH ×2 (09:00→21:00)
[2017-09-26] MEDS: SODIUM CHLORIDE 0.9% FLUSH 10 ML FLUSH IV FLUSH SCH (09:00)
[2017-09-26] MEDS: FLUTICASONE PROPIONATE 50 MCG/ACT 16 GM NASAL SPRAY EACH NARE SCH (10:22)
[2017-09-26] MEDS: GABAPENTIN 300 MG CAP PO SCH (10:23)
[2017-09-26] MEDS: CYANOCOBALAMIN 100 MCG TAB PO SCH (10:23)
[2017-09-26] MEDS: DOCUSATE SODIUM 50 MG/SENNA 8.6 MG TAB PO SCH (10:23)
[2017-09-26] MEDS: AZITHROMYCIN 250 MG TAB PO SCH (10:23)
[2017-09-26] MEDS: CEFUROXIME AXETIL 500 MG TAB PO SCH (10:24)
[2017-09-26] MEDS: ATORVASTATIN 40 MG TAB PO SCH (10:24)
[2017-09-26] MEDS: LISINOPRIL 20 MG TAB PO SCH (10:25)
[2017-09-26] MEDS: PANTOPRAZOLE SOD 40 MG DELAYED RELEASE TAB PO SCH (10:26)
[2017-09-26] MEDS: ENOXAPARIN SODIUM 100 MG/ML SYRINGE SQ SCH (10:28)
[2017-09-26] MEDS ORDERED: WARF-23 PO (14:08)
[2017-09-26] MEDS ORDERED: LORA-475 PO (14:08)
[2017-09-26] MEDS ORDERED: TYLETAB34 PO (14:08)
--- NOTE | 2017-09-26 14:12 | HHI.DS ---
Discharge Summary Admission Date Sep 24, 2017 at 21:03 Discharge Date: Sep 27, 2017 Admitting Diagnosis NEREYDA, UTI, Melena, PNA, Gait instability (1) Pulmonary edema ICD Code: J81.1 - Chronic pulmonary edema Diagnosis: Principal Status: Acute (2) Pneumonia ICD Code: J18.9 - Pneumonia, unspecified organism Diagnosis: Principal Status: Acute (3) NEREYDA (acute kidney injury) ICD Code: N17.9 - NEREYDA (acute kidney injury) Diagnosis: Principal Status: Acute Procedures NONE Brief History - From Admission 81-year-old male with a past medical history significant for anemia, insulin- dependent diabetes mellitus, atrial fibrillation status post AICD placement, anticoagulated on Coumadin, hypertension and hyperlipidemia presents to the emergency department for evaluation of multiple complaints. The patient was discharged from the hospital earlier today where he was being treated for community-acquired pneumonia and a GI bleed. He was discharged to home with azithromycin and Ceftin for his pneumonia and gastroenterology recommends follow -up with hematology and gastroenterology as an outpatient there are no signs of active bleeding at the patient is anticoagulated. The patient's reports that upon their arrival home today patient fell and hit his head. She denies that he lost consciousness. She reports that she called EMS because the patient had not urinated, had not taken anything by mouth and could not stand since his discharge from the hospital earlier today. She denies any chest pain/ shortness of breath. He denies dizziness/lightheadedness. No fever/chills. CBC/BMP: 09/26/17 0502 09/26/17 0502 Significant Findings Laboratory Tests Test 09/24/17 19:34 09/25/17 04:07 09/25/17 11:45 09/26/17 05:02 Red Blood Count 3.29 MIL/MM3 (4.50-5.90) 3.00 MIL/MM3 (4.50-5.90) 3.14 MIL/MM3 (4.50-5.90) Hemoglobin 8.6 GM/DL (13.0-17.0) 7.9 GM/DL (13.0-17.0) 8.4 GM/DL (13.0-17.0) Hematocrit 27.7 % (39.0-51.0) 25.0 % (39.0-51.0) 26.0 % (39.0-51.0) Mean Corpuscular Hemoglobin 26.1 PG (27.0-34.0) 26.3 PG (27.0-34.0) 26.8 PG (27.0-34.0) Mean Corpuscular Hemoglobin Concent 31.0 % (32.0-36.0) 31.6 % (32.0-36.0) Red Cell Distribution Width 17.5 % (11.6-17.2) Neutrophils (%) (Auto) 84.2 % (16.0-70.0) 76.2 % (16.0-70.0) 72.3 % (16.0-70.0) Lymphocytes (%) (Auto) 5.5 % (9.0-44.0) 8.5 % (9.0-44.0) Lymphocytes # (Auto) 0.3 TH/MM3 (1.0-4.8) 0.3 TH/MM3 (1.0-4.8) 0.6 TH/MM3 (1.0-4.8) Prothrombin Time 13.3 SEC (9.8-11.6) 13.8 SEC (9.8-11.6) 13.4 SEC (9.8-11.6) Urine Turbidity HAZY (CLEAR) Urine Protein 100 mg/dL (NEG-TRACE) Urine Occult Blood MOD (NEG) Urine RBC 92 /hpf (0-3) Urine Bacteria MOD /hpf (NONE) Urine Mucus FEW /lpf (OCC) Blood Urea Nitrogen 31 MG/DL (7-18) 33 MG/DL (7-18) 37 MG/DL (7-18) Creatinine 2.38 MG/DL (0.60-1.30) 2.33 MG/DL (0.60-1.30) 2.19 MG/DL (0.60-1.30) Random Glucose 161 MG/DL (74-106) 124 MG/DL (74-106) Albumin 3.0 GM/DL (3.4-5.0) 2.7 GM/DL (3.4-5.0) Aspartate Amino Transf (AST/SGOT) 9 U/L (15-37) 11 U/L (15-37) Alanine Aminotransferase (ALT/SGPT) 9 U/L (12-78) 8 U/L (12-78) Chloride Level 96 MEQ/L (98-107) 96 MEQ/L (98-107) 97 MEQ/L (98-107) Carbon Dioxide Level 37.3 MEQ/L (21.0-32.0) 37.3 MEQ/L (21.0-32.0) 37.9 MEQ/L (21.0-32.0) Estimat Glomerular Filtration Rate 26 ML/MIN (>89) 27 ML/MIN (>89) 29 ML/MIN (>89) B-Type Natriuretic Peptide 528 PG/ML (0-100) 543 PG/ML (0-100) Anion Gap 4 MEQ/L (5-15) 4 MEQ/L (5-15) White Blood Count 3.4 TH/MM3 (4.0-11.0) Eosinophils (%) (Auto) 4.6 % (0.0-4.0) 4.4 % (0.0-4.0) Basophils (%) (Auto) 2.7 % (0.0-2.0) 2.1 % (0.0-2.0) Monocytes (%) (Auto) 8.5 % (0.0-8.0) Total Protein 6.3 GM/DL (6.4-8.2) Thyroid Stimulating Hormone 3rd Gen 6.070 uIU/ML (0.358-3.740) Imaging Last Impressions Chest X-Ray 09/24/171906 Signed Impressions: Service Date/Time: Sunday, September 24, 2017 20:59 - CONCLUSION: Worsening pulmonary edema. Lonnie Martines MD PE at Discharge GENERAL: This is a well-nourished, well-developed patient, in no apparent distress. CARDIOVASCULAR: Regular rate and regular rhythm without murmurs, gallops, or rubs. RESPIRATORY: Clear to auscultation. Breath sounds equal bilaterally. No wheezes , rales, or rhonchi. GASTROINTESTINAL: Abdomen soft, non-tender, nondistended. Normal, active bowel sounds MUSCULOSKELETAL: Extremities without clubbing, cyanosis, or edema. NEURO: Alert & Oriented x4 to person, place, time, situation. Moves all ext x4 Hospital Course patient was admitted with CHF, pneumonia and acute kidney injury. he was started on diuretics, antibiotics. blood cultures negative. he was continued on Coumadin. PT/INR to be monitored as outpatient. he will have a follow-up with his PCP upon discharge. Pt Condition on Discharge: Fair Discharge Disposition: Discharge to SNF Discharge Time: > 30 minutes Discharge Instructions DIET: Follow Instructions for: Heart Healthy Diet Activities you can perform: Regular-No Restrictions Tomás Carranza MD Sep 26, 2017 14:12
[2017-09-26] MEDS: ONDANSETRON HCL 4 MG/2 ML VIAL IVP PRN (15:45)
[2017-09-26] MEDS: WARFARIN SOD 5 MG TAB PO SCH (15:45)
[2017-09-26] MEDS: LORazepam 2 MG TAB PO PRN (15:51)
[2017-09-26 16:05] LABS: HEMOGLOBIN A1C 6.1 % (4.3-6.0)
[2017-09-26] MEDS: TAMSULOSIN HCL 0.4 MG CAP PO SCH (17:15)
[2017-09-27] MEDS: INSULIN DETEMIR 100 UNITS/ML VIAL SQ SCH ×2 (00:52→21:19)
[2017-09-27] MEDS: LORazepam 2 MG TAB PO PRN (00:52)
[2017-09-27] MEDS: CEFUROXIME AXETIL 500 MG TAB PO SCH ×3 (00:53→20:48)
[2017-09-27] MEDS: DOCUSATE SODIUM 50 MG/SENNA 8.6 MG TAB PO SCH ×3 (00:53→20:49)
[2017-09-27] MEDS: traZODone HCL 50 MG TAB PO SCH ×2 (00:53→20:49)
[2017-09-27] MEDS: CHOLECALCIFEROL (VIT D3) 5000 UNIT CAP PO SCH ×2 (00:53→20:48)
[2017-09-27] MEDS: GABAPENTIN 300 MG CAP PO SCH ×3 (00:54→20:48)
[2017-09-27] MEDS: FINASTERIDE 5 MG TAB PO SCH ×2 (00:54→20:49)
[2017-09-27] MEDS: SODIUM CHLORIDE 0.9% FLUSH 10 ML FLUSH IV FLUSH SCH ×3 (00:55→20:51)
[2017-09-27] MEDS: PANTOPRAZOLE SOD 40 MG DELAYED RELEASE TAB PO SCH ×3 (00:55→20:49)
[2017-09-27] MEDS: ONDANSETRON HCL 4 MG/2 ML VIAL IVP PRN (01:02)
[2017-09-27] MEDS: RESP: ALBUTEROL 2.5 MG/IPRATROPIUM 0.5 MG NEB (SCH) NEB ×4 (02:58→20:49)
[2017-09-27 04:00] VITALS: BP 107/54; PULSE 70; RESP 18; TEMP 97.7; O2SAT 83
[2017-09-27] MEDS ORDERED: FUROSEMIDE 20 MG/2 ML VIAL IV PUSH ONE (05:15)
--- NOTE | 2017-09-27 05:30 | RADRPT ---
EXAM DATE/TIME: 09/27/2017 05:15 [facility] COMPARISON: CHEST SINGLE AP, September 24, 2017, 20:59. INDICATIONS : Congestion, weakness MEDICAL HISTORY : Congestive heart failure. Chronic obstructive pulmonary disease. Hypertension. A-fib SURGICAL HISTORY : Pacemaker. Appendectomy. Cholecystectomy. hernia repair ENCOUNTER: Subsequent ACUITY: 4 - 6 days PAIN SCORE: 0/10 LOCATION: Bilateral chest FINDINGS: Portable AP views of the chest demonstrate a normal-sized cardiac silhouette with calcification of th e aorta. Left chest wall cardiac pacing device as AICD is present. There is a stable left pleural-bas ed opacity with volume loss in the left lung and left pleural-based opacity. There is pleural-parench ymal opacity in the right lower lung zone. No pneumothorax is identified. CONCLUSION: Stable chest x-ray with bilateral mid and lower lung zone airspace opacity and likely bilateral pleur al effusions. As described previously, these changes may be related to pulmonary edema. Garrett Orellana MD on September 27, 2017 at 5:27 Board Certified Radiologist. This report was verified electronically.
[2017-09-27 07:32] LABS: INTERNATIONAL NORMALIZED RATIO 1.3 RATIO; PROTHROMBIN TIME - PATIENT 13.5 SEC (9.8-11.6)
[2017-09-27 07:50] LABS: BICARBONATE 38.3 MEQ/L (21.0-32.0); CALCIUM 8.2 MG/DL (8.5-10.1); CREATININE 1.97 MG/DL (0.60-1.30)
[2017-09-27 08:00] VITALS: BP 122/60; PULSE 70; RESP 18; TEMP 97.6; O2SAT 92
[2017-09-27] MEDS: INSULIN ASPART SUPPLEMENTAL SCALE SQ SCH ×4 (08:00→20:07)
--- NOTE | 2017-09-27 08:50 | HHI.PR ---
Subjective Remarks in no acute distress. apparently became hypoxic last night- received a dose of lasix -now on four liters of oxygen via N/C. denies chest pain. afebrile. Objective Vitals Vital Signs Date Time Temp Pulse Resp B/P (MAP) Pulse Ox O2 Delivery O2 Flow Rate FiO2 09/27/17 08:09 Nasal Cannula 4.00 09/27/17 04:00 97.7 70 18 107/54 (71) 83 09/26/17 22:00 99.4 70 16 120/56 (77) 94 09/26/17 21:50 93 Nasal Cannula 4.00 09/26/17 16:00 98.7 71 16 123/65 (84) 90 09/26/17 12:00 97.7 70 16 119/58 (78) 93 I/O 09/26/17 09/26/17 09/26/17 09/27/17 09/27/17 09/27/17 06:59 14:59 22:59 06:59 14:59 22:59 Intake Total 480 ml Output Total 550 ml 900 ml Balance -70 ml -900 ml Intake Oral 480 ml Output Urine Total 550 ml 900 ml # Voids 1 # Bowel Movements 0 Result Diagram: 09/26/17 0502 09/27/17 0506 Imaging Last Impressions Chest X-Ray 09/27/17 0000 Signed Impressions: Service Date/Time: Wednesday, September 27, 2017 05:15 - CONCLUSION: Stable chest x-ray with bilateral mid and lower lung zone airspace opacity and likely bilateral pleural effusions. As described previously, these changes may be related to pulmonary edema. Garrett Orellana MD Objective Remarks GENERAL: This is a well-nourished, well-developed patient, in no apparent distress. CARDIOVASCULAR: Regular rate and regular rhythm without murmurs, gallops, or rubs. RESPIRATORY: Clear to auscultation. Breath sounds equal bilaterally. No wheezes , rales, or rhonchi. GASTROINTESTINAL: Abdomen soft, non-tender, nondistended. Normal, active bowel sounds MUSCULOSKELETAL: Extremities without clubbing, cyanosis, or edema. NEURO: Alert & Oriented x4 to person, place, time, situation. Moves all ext x4 Procedures NONE Medications and IVs Inpatient Medications Acetaminophen (Tylenol) 650 mg Q6H PRN PO PAIN SCALE 1 TO 2; Start 09/25/17 at 09:45 Albuterol/ Ipratropium (Duoneb Neb) 1 ampule Q4HR NEB PRN NEB sob/wheezing Last administered on 09/27/17 05:05; Start 09/24/17 at 21:45 Atorvastatin Calcium (Lipitor) 40 mg DAILY PO Last administered on 09/26/17 10: 24; Start 09/25/17 at 09:00 Azithromycin (Zithromax) 250 mg DAILY PO Last administered on 09/26/17at 10:23; Start 09/25/17 at 09:00; Stop 09/29/17 at 10:00 Azithromycin 500 mg/Sodium Chloride 250 ml @ 250 mls/hr ONCE ONCE IV ; Start 09/24/17 at 21:00; Stop 09/24/17 at 21:59; Status DC Bisacodyl (Dulcolax Supp) 10 mg DAILY PRN RECTAL SEVERE CONSITIPATION; Start at 09:45 Ceftriaxone Sodium 1000 mg/ Sodium Chloride 100 ml @ 200 mls/hr ONCE ONCE IV ; Start 09/24/17 at 21:00; Stop 09/24/17 at 21:29; Status DC Cefuroxime Axetil (Ceftin) 500 mg Q12HR PO Last administered on 09/27/17at 00:53 ; Start 09/25/17 at 09:00; Stop 10/09/17 at 10:00 Cholecalciferol (Vitamin D3) 5,000 units HS PO Last administered on 09/27/17at 00 :53; Start 09/25/17 at 21:00 Cyanocobalamin (Vitamin B12) 100 mcg DAILY PO Last administered on 09/26/17at 10: 23; Start 09/25/17 at 10:00 Dextrose (D50w (Vial) Inj) 50 ml UNSCH PRN IV PUSH HYPOGLYCEMIA-SEE COMMENTS; Start 09/24/17 at 21:45 Digoxin (Lanoxin) 0.125 mg DAILY PO Last administered on 09/25/17at 09:05; Start 09/25/17 at 09:00 Enoxaparin Sodium (Lovenox Inj) 100 mg Q24H SQ Last administered on 09/26/17at 10 :28; Start 09/25/17 at 10:00 Finasteride (Proscar) 5 mg HS PO Last administered on 09/27/17at 00:54; Start 09/25/17 at 21:00 Fluticasone Propionate (Flonase Osvaldo Spr) 2 spray DAILY EACH NARE Last administered on 09/26/17at 10:22; Start 09/25/17 at 09:45 Furosemide (Lasix Inj) 20 mg ONCE ONCE IV PUSH ; Start 09/27/17 at 05:15; Stop 09/27/17 at 05:16; Status DC Gabapentin (Neurontin) 600 mg BID PO Last administered on 09/27/17at 00:54; Start 09/25/17 at 09:00 Glucagon (Glucagon Inj) 1 mg UNSCH PRN OTHER HYPOGLYCEMIA-SEE COMMENTS; Start 09/24/17 at 21:45 Heparin Sodium (Porcine) (Heparin Inj) 5,000 units Q8HR SQ Last administered on 09/25/17at 05:43; Start 09/24/17 at 22:00; Stop 09/25/17 at 09:47; Status DC Insulin Aspart (NovoLOG SUPPLEMENTAL SCALE) 1 ACHS SLIDING SCALE SQ Last administered on 09/25/17at 17:24; Start 09/25/17 at 08:00 Insulin Detemir (Levemir Inj) 15 units HS SQ Last administered on 09/27/17at 00: 52; Start 09/25/17 at 21:00 Lactulose (Lactulose Liq) 30 ml DAILY PRN PO SEVERE CONSITIPATION; Start at 09:45 Lisinopril (Prinivil) 20 mg DAILY PO Last administered on 09/26/17at 10:25; Start 09/25/17 at 09:00 Lorazepam (Ativan) 2 mg Q6H PRN PO ANXIETY Last administered on 09/27/17at 00:52 ; Start 09/24/17 at 22:00 Magnesium Hydroxide (Milk Of Magnesia Liq) 30 ml Q12H PRN PO Mild constipation ; Start 09/25/17 at 09:45 Metoclopramide HCl (Reglan Inj) 5 mg Q6H PRN IV PUSH NAUSEA OR VOMITING; Start 09/25/17 at 09:45 Morphine Sulfate (Morphine Inj) 4 mg Q3H PRN IV PUSH Pain 6-10;if unable to take PO; Start 09/25/17 at 09:45 Naloxone HCl (Narcan Inj) 0.4 mg UNSCH PRN IV PUSH SEE LABEL COMMENTS; Start at 09:45 Nebivolol (Bystolic) 10 mg BID PO Last administered on 09/25/17 20:32; Start at 09:00 Ondansetron HCl (Zofran Inj) 4 mg Q6H PRN IVP NAUSEA OR VOMITING Last administered on 09/27/17 01:02; Start 09/25/17 at 09:45 Oxycodone/ Acetaminophen (Percocet 5-325 Mg) 1 tab Q6H PRN PO PAIN SCALE 3 TO 5 Last administered on 09/26/17 05:13; Start 09/25/17 at 09:45 Oxycodone/ Acetaminophen (Percocet 10-325 Mg) 1 tab Q6H PRN PO PAIN SCALE 6 TO 10 Last administered on 09/25/17 10:38; Start 09/25/17 at 09:45 Pantoprazole Sodium (Protonix) 40 mg BID PO Last administered on 09/27/17 00:55 ; Start 09/25/17 at 10:15 Patient Medication Teaching (Coumadin Booklet) 1 ONCE ONCE OTHER Last administered on 09/25/17 16:06; Start 09/25/17 at 16:00; Stop 09/25/17 at 16:01; Status DC Pharmacy Profile Note 0 ml @ 0 mls/hr UNSCH OTHER ; Start 09/24/17 at 22:00 Senna/Docusate Sodium (Helene-Colace) 1 tab BID PO Last administered on 09/27/17 00:53; Start 09/25/17 at 21:00 Sennosides (Senokot) 17.2 mg Q12H PRN PO Moderate constipation; Start 09/25/17 at 09:45 Sodium Chloride (NS Flush) 2 ml BID IV FLUSH Last administered on 09/27/17 00: 55; Start 09/25/17 at 21:00 Tamsulosin HCl (Flomax) 0.4 mg DAILY@1800 PO Last administered on 09/26/17 17: 15; Start 09/25/17 at 18:00 Torsemide (Demadex) 40 mg BID PO Last administered on 09/25/17 20:32; Start 09/25/17 at 09:00; Status Future Hold Trazodone HCl (Desyrel) 50 mg HS PO Last administered on 09/27/17at 00:53; Start 09/25/17 at 21:00 Warfarin Sodium (Coumadin) 7.5 mg DAILY@1600 PO Last administered on 09/26/17at 15:45; Start 09/25/17 at 16:00 A/P Problem List: (1) Pulmonary edema ICD Code: J81.1 - Chronic pulmonary edema Status: Acute (2) Pneumonia ICD Code: J18.9 - Pneumonia, unspecified organism Status: Acute (3) NEREYDA (acute kidney injury) ICD Code: N17.9 - NEREYDA (acute kidney injury) Status: Acute Assessment and Plan 1. Failure to thrive/generalized weakness Had no by mouth intake at home Status post fall Monitor I's and O's, continue with foly cath today. Patient unable to be safely discharged to home, would benefit from placement Case management consulted 2. Acute on chronic renal insufficiency Encourage by mouth intake, IV fluids if needed Monitor renal function Avoid nephrotoxic agents luna in place; will remove tomorrow if renal function continues to improve. 3. Pneumonia Azithromycin/Ceftin Duo nebs 4. CHF- acute on chronic diastolic Last echo done in 06/09/17 showed an EF of 55-60% The patient with pulmonary edema on chest x-ray received a dose of IV lasix last night resume po diuretics 5. Atrial fibrillation Continue Coumadin INR subtherapeutic - continue Coumadin with Lovenox bridge. Continue home medications 6. Insulin-dependent diabetes mellitus Holding home Lantus for decreased PO intake and BG of 161 Sliding scale insulin Monitor blood 7. Hypertension/hyperlipidemia Continue home medications 8. 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 will resume diuretics today. will taper down the oxygen as tolerated. not ready for discharge today. Problem Qualifiers (1) Pulmonary edema: Qualified Codes: J81.0 - Acute pulmonary edema (2) Pneumonia: Qualified Codes: J18.9 - Pneumonia, unspecified organism Tomás Carranza MD Sep 27, 2017 08:49
[2017-09-27] MEDS: CYANOCOBALAMIN 100 MCG TAB PO SCH (09:00)
[2017-09-27] MEDS: DIGOXIN 0.125 MG TAB PO SCH (09:00)
[2017-09-27] MEDS: NEBIVOLOL 10 MG TAB PO SCH ×2 (09:00→20:48)
[2017-09-27] MEDS: TORSEMIDE 20 MG TAB PO SCH ×2 (09:00→20:49)
[2017-09-27] MEDS: ATORVASTATIN 40 MG TAB PO SCH (09:11)
[2017-09-27] MEDS: AZITHROMYCIN 250 MG TAB PO SCH (09:11)
[2017-09-27] MEDS: LISINOPRIL 20 MG TAB PO SCH (09:11)
[2017-09-27] MEDS: FLUTICASONE PROPIONATE 50 MCG/ACT 16 GM NASAL SPRAY EACH NARE SCH (09:18)
[2017-09-27] MEDS: ENOXAPARIN SODIUM 100 MG/ML SYRINGE SQ SCH (09:18)
[2017-09-27 12:00] VITALS: BP 117/61; PULSE 69; RESP 17; TEMP 97.8; O2SAT 95
[2017-09-27 16:00] VITALS: BP 110/56; PULSE 70; RESP 17; TEMP 98.7; O2SAT 97
[2017-09-27] MEDS: WARFARIN SOD 5 MG TAB PO SCH (18:21)
[2017-09-27] MEDS: TAMSULOSIN HCL 0.4 MG CAP PO SCH (18:23)
[2017-09-27 20:00] VITALS: BP 108/52; PULSE 70; RESP 18; TEMP 98.7; O2SAT 92
[2017-09-27 20:53] VITALS: O2SAT 96
[2017-09-28] VITALS (8 sets, daily range): BP systolic 113–127; BP diastolic 53–67; PULSE 70–105; RESP 16–20; TEMP 96.6–98.8; O2SAT 90–98
[2017-09-28] MEDS: RESP: ALBUTEROL 2.5 MG/IPRATROPIUM 0.5 MG NEB (SCH) NEB ×3 (03:13→19:27)
[2017-09-28] MEDS: INSULIN ASPART SUPPLEMENTAL SCALE SQ SCH ×4 (08:00→21:00)
--- NOTE | 2017-09-28 08:14 | HHI.PR ---
Subjective Remarks in no acute distress. denies chest pain or sob. afebrile. no new complaints. Objective Vitals Vital Signs Date Time Temp Pulse Resp B/P (MAP) Pulse Ox O2 Delivery O2 Flow Rate FiO2 09/28/17 04:00 96.7 70 18 117/58 (77) 90 09/28/17 00:00 97.9 70 16 113/53 (73) 90 09/27/17 23:43 Nasal Cannula 2.00 Humidified 09/27/17 20:53 96 Nasal Cannula 4.00 09/27/17 20:00 98.7 70 18 108/52 (70) 92 09/27/17 16:00 98.7 70 17 110/56 (74) 97 09/27/17 12:00 97.8 69 17 117/61 (79) 95 I/O 09/27/17 09/27/17 09/27/17 09/28/17 09/28/17 09/28/17 07:00 15:00 23:00 07:00 15:00 23:00 Intake Total 720 ml 720 ml Output Total 551 ml 700 ml Balance 169 ml 20 ml Intake Oral 720 ml 720 ml Output Urine Total 550 ml 700 ml Stool Total 1 ml Result Diagram: 09/26/17 0502 09/27/17 0506 Imaging Last Impressions Chest X-Ray 09/27/17 0000 Signed Impressions: Service Date/Time: Wednesday, September 27, 2017 05:15 - CONCLUSION: Stable chest x-ray with bilateral mid and lower lung zone airspace opacity and likely bilateral pleural effusions. As described previously, these changes may be related to pulmonary edema. Garrett Orellana MD Objective Remarks GENERAL: This is a well-nourished, well-developed patient, in no apparent distress. CARDIOVASCULAR: Regular rate and regular rhythm without murmurs, gallops, or rubs. RESPIRATORY: Clear to auscultation. Breath sounds equal bilaterally. No wheezes , rales, or rhonchi. GASTROINTESTINAL: Abdomen soft, non-tender, nondistended. Normal, active bowel sounds MUSCULOSKELETAL: Extremities without clubbing, cyanosis, or edema. NEURO: Alert & Oriented x4 to person, place, time, situation. Moves all ext x4 Procedures NONE Medications and IVs Inpatient Medications Acetaminophen (Tylenol) 650 mg Q6H PRN PO PAIN SCALE 1 TO 2; Start 09/25/17 at 09:45 Albuterol/ Ipratropium (Duoneb Neb) 1 ampule Q4HR NEB PRN NEB sob/wheezing Last administered on 09/27/17 05:05; Start 09/24/17 at 21:45 Atorvastatin Calcium (Lipitor) 40 mg DAILY PO Last administered on 09/27/17at 09: 11; Start 09/25/17 at 09:00 Azithromycin (Zithromax) 250 mg DAILY PO Last administered on 09/27/17at 09:11; Start 09/25/17 at 09:00; Stop 09/29/17 at 10:00 Azithromycin 500 mg/Sodium Chloride 250 ml @ 250 mls/hr ONCE ONCE IV ; Start 09/24/17 at 21:00; Stop 09/24/17 at 21:59; Status DC Bisacodyl (Dulcolax Supp) 10 mg DAILY PRN RECTAL SEVERE CONSITIPATION; Start at 09:45 Ceftriaxone Sodium 1000 mg/ Sodium Chloride 100 ml @ 200 mls/hr ONCE ONCE IV ; Start 09/24/17 at 21:00; Stop 09/24/17 at 21:29; Status DC Cefuroxime Axetil (Ceftin) 500 mg Q12HR PO Last administered on 09/27/17at 20:48 ; Start 09/25/17 at 09:00; Stop 10/09/17 at 10:00 Cholecalciferol (Vitamin D3) 5,000 units HS PO Last administered on 09/27/17at 20 :48; Start 09/25/17 at 21:00 Cyanocobalamin (Vitamin B12) 100 mcg DAILY PO Last administered on 09/27/17at 09: 00; Start 09/25/17 at 10:00 Dextrose (D50w (Vial) Inj) 50 ml UNSCH PRN IV PUSH HYPOGLYCEMIA-SEE COMMENTS; Start 09/24/17 at 21:45 Digoxin (Lanoxin) 0.125 mg DAILY PO Last administered on 09/25/17at 09:05; Start 09/25/17 at 09:00 Enoxaparin Sodium (Lovenox Inj) 100 mg Q24H SQ Last administered on 09/27/17at 09 :18; Start 09/25/17 at 10:00 Finasteride (Proscar) 5 mg HS PO Last administered on 09/27/17at 20:49; Start 09/25/17 at 21:00 Fluticasone Propionate (Flonase Osvaldo Spr) 2 spray DAILY EACH NARE Last administered on 09/27/17at 09:18; Start 09/25/17 at 09:45 Furosemide (Lasix Inj) 20 mg ONCE ONCE IV PUSH ; Start 09/27/17 at 05:15; Stop 09/27/17 at 05:16; Status DC Gabapentin (Neurontin) 600 mg BID PO Last administered on 09/27/17at 20:48; Start 09/25/17 at 09:00 Glucagon (Glucagon Inj) 1 mg UNSCH PRN OTHER HYPOGLYCEMIA-SEE COMMENTS; Start 09/24/17 at 21:45 Heparin Sodium (Porcine) (Heparin Inj) 5,000 units Q8HR SQ Last administered on 09/25/17at 05:43; Start 09/24/17 at 22:00; Stop 09/25/17 at 09:47; Status DC Insulin Aspart (NovoLOG SUPPLEMENTAL SCALE) 1 ACHS SLIDING SCALE SQ Last administered on 09/27/17at 20:07; Start 09/25/17 at 08:00 Insulin Detemir (Levemir Inj) 15 units HS SQ Last administered on 09/27/17 21: 19; Start 09/25/17 at 21:00 Lactulose (Lactulose Liq) 30 ml DAILY PRN PO SEVERE CONSITIPATION; Start at 09:45 Lisinopril (Prinivil) 20 mg DAILY PO Last administered on 09/27/17at 09:11; Start 09/25/17 at 09:00 Lorazepam (Ativan) 2 mg Q6H PRN PO ANXIETY Last administered on 09/27/17at 00:52 ; Start 09/24/17 at 22:00 Magnesium Hydroxide (Milk Of Magnesia Liq) 30 ml Q12H PRN PO Mild constipation ; Start 09/25/17 at 09:45 Metoclopramide HCl (Reglan Inj) 5 mg Q6H PRN IV PUSH NAUSEA OR VOMITING; Start 09/25/17 at 09:45 Morphine Sulfate (Morphine Inj) 4 mg Q3H PRN IV PUSH Pain 6-10;if unable to take PO; Start 09/25/17 at 09:45 Naloxone HCl (Narcan Inj) 0.4 mg UNSCH PRN IV PUSH SEE LABEL COMMENTS; Start at 09:45 Nebivolol (Bystolic) 10 mg BID PO Last administered on 09/27/17 20:48; Start at 09:00 Ondansetron HCl (Zofran Inj) 4 mg Q6H PRN IVP NAUSEA OR VOMITING Last administered on 09/27/17 01:02; Start 09/25/17 at 09:45 Oxycodone/ Acetaminophen (Percocet 5-325 Mg) 1 tab Q6H PRN PO PAIN SCALE 3 TO 5 Last administered on 09/26/17 05:13; Start 09/25/17 at 09:45 Oxycodone/ Acetaminophen (Percocet 10-325 Mg) 1 tab Q6H PRN PO PAIN SCALE 6 TO 10 Last administered on 09/25/17 10:38; Start 09/25/17 at 09:45 Pantoprazole Sodium (Protonix) 40 mg BID PO Last administered on 09/27/17 20:49 ; Start 09/25/17 at 10:15 Patient Medication Teaching (Coumadin Booklet) 1 ONCE ONCE OTHER Last administered on 09/25/17 16:06; Start 09/25/17 at 16:00; Stop 09/25/17 at 16:01; Status DC Pharmacy Profile Note 0 ml @ 0 mls/hr UNSCH OTHER ; Start 09/24/17 at 22:00 Senna/Docusate Sodium (Helene-Colace) 1 tab BID PO Last administered on 09/27/17 20:49; Start 09/25/17 at 21:00 Sennosides (Senokot) 17.2 mg Q12H PRN PO Moderate constipation; Start 09/25/17 at 09:45 Sodium Chloride (NS Flush) 2 ml BID IV FLUSH Last administered on 09/27/17 20: 51; Start 09/25/17 at 21:00 Tamsulosin HCl (Flomax) 0.4 mg DAILY@1800 PO Last administered on 09/27/17 18: 23; Start 09/25/17 at 18:00 Torsemide (Demadex) 40 mg BID PO Last administered on 09/27/17 20:49; Start 09/25/17 at 09:00; Status Future hold Trazodone HCl (Desyrel) 50 mg HS PO Last administered on 09/27/17at 20:49; Start 09/25/17 at 21:00 Warfarin Sodium (Coumadin) 7.5 mg DAILY@1600 PO Last administered on 09/27/17at 18:21; Start 09/25/17 at 16:00 A/P Problem List: (1) Pulmonary edema ICD Code: J81.1 - Chronic pulmonary edema Status: Acute (2) Pneumonia ICD Code: J18.9 - Pneumonia, unspecified organism Status: Acute (3) NEREYDA (acute kidney injury) ICD Code: N17.9 - NEREYDA (acute kidney injury) Status: Acute Assessment and Plan 1. Failure to thrive/generalized weakness Status post fall Monitor I's and O's, will dc luna cath today -pending BMP. Patient unable to be safely discharged to home, would benefit from placement Case management consulted 2. Acute on chronic renal insufficiency Encourage by mouth intake- Monitor renal function Avoid nephrotoxic agents luna in place; will remove later today if renal function continues to improve. 3. Pneumonia Azithromycin/Ceftin Duo nebs 4. CHF- acute on chronic diastolic Last echo done in 06/09/17 showed an EF of 55-60% The patient with pulmonary edema on chest x-ray received a dose of IV lasix the other night. resumed po diuretics 5. Atrial fibrillation Continue Coumadin INR subtherapeutic - continue Coumadin with Lovenox bridge. Continue home medications 6. Insulin-dependent diabetes mellitus Sliding scale insulin Monitor blood 7. Hypertension/hyperlipidemia Continue home medications 8. 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 f/u; pcp. see med list. d/w the patient and previously with case management. time spent 35 min. Problem Qualifiers (1) Pulmonary edema: Qualified Codes: J81.0 - Acute pulmonary edema (2) Pneumonia: Qualified Codes: J18.9 - Pneumonia, unspecified organism Tomás Carranza MD Sep 28, 2017 08:14
[2017-09-28] MEDS: NEBIVOLOL 10 MG TAB PO SCH ×2 (08:36→21:28)
[2017-09-28] MEDS: CYANOCOBALAMIN 100 MCG TAB PO SCH (08:36)
[2017-09-28] MEDS: ENOXAPARIN SODIUM 100 MG/ML SYRINGE SQ SCH (08:36)
[2017-09-28] MEDS: AZITHROMYCIN 250 MG TAB PO SCH (08:36)
[2017-09-28] MEDS: GABAPENTIN 300 MG CAP PO SCH ×2 (08:37→21:28)
[2017-09-28] MEDS: CEFUROXIME AXETIL 500 MG TAB PO SCH ×2 (08:37→21:27)
[2017-09-28] MEDS: PANTOPRAZOLE SOD 40 MG DELAYED RELEASE TAB PO SCH ×2 (08:37→21:28)
[2017-09-28] MEDS: LISINOPRIL 20 MG TAB PO SCH (08:38)
[2017-09-28] MEDS: ATORVASTATIN 40 MG TAB PO SCH (08:38)
[2017-09-28] MEDS: TORSEMIDE 20 MG TAB PO SCH ×2 (08:38→21:27)
[2017-09-28] MEDS: DOCUSATE SODIUM 50 MG/SENNA 8.6 MG TAB PO SCH ×2 (08:38→21:29)
[2017-09-28] MEDS: DIGOXIN 0.125 MG TAB PO SCH (08:38)
[2017-09-28] MEDS: SODIUM CHLORIDE 0.9% FLUSH 10 ML FLUSH IV FLUSH SCH ×2 (08:39→21:29)
[2017-09-28] MEDS: FLUTICASONE PROPIONATE 50 MCG/ACT 16 GM NASAL SPRAY EACH NARE SCH (08:40)
[2017-09-28 11:37] LABS: INTERNATIONAL NORMALIZED RATIO 1.6 RATIO; PROTHROMBIN TIME - PATIENT 16.1 SEC (9.8-11.6)
[2017-09-28 11:56] LABS: BICARBONATE 37.6 MEQ/L (21.0-32.0); CALCIUM 8.8 MG/DL (8.5-10.1); CREATININE 1.81 MG/DL (0.60-1.30)
[2017-09-28] MEDS ORDERED: ENOX100P SQ (14:01)
[2017-09-28] MEDS: WARFARIN SOD 5 MG TAB PO SCH (16:00)
[2017-09-28] MEDS: TAMSULOSIN HCL 0.4 MG CAP PO SCH (16:59)
[2017-09-28] MEDS: INSULIN DETEMIR 100 UNITS/ML VIAL SQ SCH (21:26)
[2017-09-28] MEDS: CHOLECALCIFEROL (VIT D3) 5000 UNIT CAP PO SCH (21:27)
[2017-09-28] MEDS: FINASTERIDE 5 MG TAB PO SCH (21:28)
[2017-09-28] MEDS: traZODone HCL 50 MG TAB PO SCH (21:28)
[2017-09-29] VITALS: BP 116/61; PULSE 70; RESP 20; TEMP 97.1; O2SAT 92
[2017-09-29] MEDS: LORazepam 2 MG TAB PO PRN (03:51)
[2017-09-29 04:00] VITALS: BP 114/66; PULSE 72; RESP 20; TEMP 97.6; O2SAT 92
[2017-09-29 04:58] LABS: INTERNATIONAL NORMALIZED RATIO 1.9 RATIO
[2017-09-29 08:00] VITALS: BP 130/61; PULSE 65; RESP 18; TEMP 97.5; O2SAT 98
[2017-09-29] MEDS: INSULIN ASPART SUPPLEMENTAL SCALE SQ SCH (08:00)
[2017-09-29] MEDS ORDERED: ENOXAPARIN SODIUM 100 MG/ML SYRINGE SQ SCH (09:00)
[2017-09-29] MEDS: CEFUROXIME AXETIL 500 MG TAB PO SCH (09:17)
[2017-09-29] MEDS: DOCUSATE SODIUM 50 MG/SENNA 8.6 MG TAB PO SCH (09:17)
[2017-09-29] MEDS: CYANOCOBALAMIN 100 MCG TAB PO SCH (09:18)
[2017-09-29] MEDS: ATORVASTATIN 40 MG TAB PO SCH (09:18)
[2017-09-29] MEDS: LISINOPRIL 20 MG TAB PO SCH (09:18)
[2017-09-29] MEDS: AZITHROMYCIN 250 MG TAB PO SCH (09:18)
[2017-09-29] MEDS: GABAPENTIN 300 MG CAP PO SCH (09:18)
[2017-09-29] MEDS: DIGOXIN 0.125 MG TAB PO SCH (09:18)
[2017-09-29] MEDS: PANTOPRAZOLE SOD 40 MG DELAYED RELEASE TAB PO SCH (09:18)
[2017-09-29] MEDS: NEBIVOLOL 10 MG TAB PO SCH (09:18)
[2017-09-29] MEDS: FLUTICASONE PROPIONATE 50 MCG/ACT 16 GM NASAL SPRAY EACH NARE SCH (09:19)
[2017-09-29] MEDS: SODIUM CHLORIDE 0.9% FLUSH 10 ML FLUSH IV FLUSH SCH (09:19)
[2017-09-29] MEDS: TORSEMIDE 20 MG TAB PO SCH (09:19)
== END 2017-09-29 13:34 | DRG 682 ==
LOC: NEPE 18:59 → NEDA 21:03 → N07A 22:02
PROVIDERS: ADMIT Hospitalist; ATTEND Hospitalist
DX: N17.9 Acute kidney failure, unspecified (principal); J18.9 Pneumonia, unspecified organism; I71.02 Dissection of abdominal aorta; I50.33 Acute on chronic diastolic (congestive) heart failure; E11.22 Type 2 diabetes mellitus with diabetic chronic kidney disease; Z99.81 Dependence on supplemental oxygen; I13.0 Hypertensive heart and chronic kidney disease with heart failure and stage 1 through stage 4 chronic kidney disease, or unspecified chronic kidney disease; I48.91 Unspecified atrial fibrillation; K92.1 Melena; R62.7 Adult failure to thrive; D64.9 Anemia, unspecified; N18.9 Chronic kidney disease, unspecified; E78.5 Hyperlipidemia, unspecified; S90.812A Abrasion, left foot, initial encounter; S80.812A Abrasion, left lower leg, initial encounter; H91.93 Unspecified hearing loss, bilateral; M19.90 Unspecified osteoarthritis, unspecified site; R26.9 Unspecified abnormalities of gait and mobility; R09.02 Hypoxemia; Z79.01 Long term (current) use of anticoagulants; Z79.4 Long term (current) use of insulin; Z87.891 Personal history of nicotine dependence; Z95.810 Presence of automatic (implantable) cardiac defibrillator; W19.XXXA Unspecified fall, initial encounter; Y92.009 Unspecified place in unspecified non-institutional (private) residence as the place of occurrence of the external cause
CPT/HCPCS: 71045; 80048; 80053; 81001; 82948; 83036; 83735; 83880; 84100; 84439; 84443; 85025; 85610; 85730; 87040; 87086; 87804; 93005; 94640; 94664; 99285; J1644; J1650; J1815; J1940; J2405; P9612

== ENCOUNTER 2017-10-01 19:23 | Inpatient (IN) | payer MEDICARE ==
[2017-10-01] VITALS (7 sets, daily range): BP systolic 133–147; BP diastolic 63–74; PULSE 69; RESP 16–26; TEMP 98.4–99.6; O2SAT 86–99
[~2017-10-01] VITALS: Ht 188 cm; Wt 102.0 kg
[~2017-10-01 19:23] MED LIST changes: -AMIT25TA9 PO; -AMIT50TA3 PO; -AUGM500T7 PO; -AZIT250T3 PO; -CEPH-460 PO; -DIFL150T PO; +ENOX100P SQ; -TYLE325T PO
--- NOTE | 2017-10-01 19:31 | PD ---
HPI Chief Complaint: generalized weakness, anxiety Time Seen by Provider: 19:32 Travel History International Travel<30 days: No Contact w/Intl Traveler<30days: No Traveled to known affect area: No History of Present Illness HPI 81-year-old male came to the emergency room with history of not feeling well from the time he woke up this morning. Patient says that this has made him anxious as well. He was recently discharged a few days ago from rehabilitation after being hospitalized for pneumonia. Patient has history of COPD and congestive heart failure and requires 4 L of oxygen at home. He was also experiencing some left upper quadrant pain and eventually called EMS. The pain was sharp in intensity and tender upon touching the area. No history of vomiting or diarrhea. Vital signs were relatively stable upon arrival. Patient does appear to be anxious. He says that he has a pulse oximeter at home and he noticed that the oxygen saturation went down to 80% when he ambulated. PFSH Past Medical History Narrative Medical List of his past medical, surgical, social and family history is reviewed from the nursing note. 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) Endocrine: Yes Gastrointestinal Disorders: Yes GERD: No Glaucoma: No Genitourinary: Yes (BPH) Headaches: Yes (R/T SINUSITIS) Hepatitis: No Hiatal Hernia: Yes Hypertension: Yes Immune Disorder: No Implanted Vascular Access Dvce: Yes Kidney Stones: No Musculoskeletal: Yes Neurologic: Yes Psychiatric: Yes Reproductive: No Respiratory: Yes Integumentary: Yes Immunizations Current: No Migraines: No Radiation Therapy: No Renal Failure: No Seizures: No Sickle Cell Disease: No Sleep Apnea: Yes (CPAP AT NIGHT AT TIMES) Thyroid Disease: No Ulcer: No Past Surgical History Abdominal Surgery: Yes (HERNIA REPAIR) AICD: Yes Appendectomy: Yes Arteriovenous Shunt: No Body Medical Devices: KNEE REPLACEMENT LEFT AND RIGHT, AICD Cardiac Surgery: Yes (PACEMAKER/DEFIB) Cholecystectomy: Yes Ear Surgery: No Endocrine Surgery: No Eye Surgery: Yes Genitourinary Surgery: No Gynecologic Surgery: No Insulin Pump: No Joint Replacement: Yes (BILATERAL TKR) Neurologic Surgery: No Oral Surgery: No Pacemaker: Yes (REPLACED IN NOVEMBER 2016) Thoracic Surgery: No Other Surgery: Yes (pacemaker placement, herniated appendix) Social History Alcohol Use: No Tobacco Use: No Substance Use: No Allergies-Medications (Allergen,Severity, Reaction): Coded Allergies: MRI PRECAUTION (Verified Allergy, Severe, 10/01/17) Uncoded Allergies: STEROIDS (Adverse Reaction, Mild, 01/10/17) ELEVATED BLOOD SUGAR Comments List of his allergies reviewed from the nursing note. Reported Meds & Prescriptions Reported Meds & Active Scripts Active Lovenox Inj (Enoxaparin Sodium) 100 Mg/Ml Syr 100 Mg SQ Q24H 2 Days dc when INR >2. Warfarin 5 Mg Tab 5 Mg PO DAILY Ativan (Lorazepam) 2 Mg Tab 2 Mg PO Q6H PRN Tylenol-Codeine #3 (Acetaminophen-Codeine) 300-30 mg Tab 1 Tab PO Q4H PRN DO NOT USE THIS MEDICINE IF YOU WILL DRIVE A CAR OR USE A MACHINE, ONLY USE IT WHEN RESTING AT HOME. Walker/Adult/Folding (Device) 1 Mis Mis Ea .ROUTE DIRECTED Oxygen tank (Oxygen) 1 Ea Tank 2 Liter JAKE.CANULA CONTINUOUS Oxygen Concentrator Portable Gaseous 2 L/min via Nasal Cannula Continuous For 99 months Digoxin 0.125 Mg Tab 0.125 Mg PO DAILY Reported Fluticasone Nasal Hanna 50 Mcg/Act Naspr 50 Mcg EACH NARE DAILY 50 mcg/spray Acarbose 100 Mg Tab 100 Mg PO TID Take with first bite of meal. Lantus Inj (Insulin Glargine) 1,000 Unit/10 Ml Vial 15 Units SQ HS Duoneb (Ipratropium-Albuterol Neb) 0.5-2.5 Mg/3 Ml Neb 3 Ml NEB TID Senna S (Sennosides-Docusate Sodium) 8.6-50 Mg Tab 1 Tab PO DAILY PRN Vitamin D3 (Cholecalciferol) 5,000 Unit Cap 5,000 Units PO HS Trazodone (Trazodone HCl) 50 Mg Tab 50 Mg PO HS Gabapentin 300 Mg Cap 600 Mg PO BID Vitamin B12 (Cyanocobalamin) 100 Mcg Tab 100 Mcg PO DAILY Omeprazole 40 Mg Cap 40 Mg PO BID Atorvastatin (Atorvastatin Calcium) 40 Mg Tab 40 Mg PO DAILY Torsemide 20 Mg Tab 40 Mg PO BID Lisinopril 20 Mg Tab 20 Mg PO DAILY Bystolic (Nebivolol) 10 Mg Tab 10 Mg PO BID Finasteride 5 Mg Tab 5 Mg PO HS Do not crush. Narrative Medication List of his home medications reviewed from the nursing note. Review of Systems Except as stated in HPI: all other systems reviewed are Neg Respiratory: Positive: Shortness of Breath Physical Exam Narrative GENERAL: Awake, alert, elderly, frail, moderate distress SKIN: Focused skin assessment warm/dry. Pale HEAD: Atraumatic. Normocephalic. EYES: Pupils equal and round. No scleral icterus. No injection or drainage. ENT: No nasal bleeding or discharge. Mucous membranes pink and moist. NECK: Trachea midline. No JVD. CARDIOVASCULAR: Regular rate and rhythm. No murmur appreciated. RESPIRATORY: No accessory muscle use. Clear to auscultation. Breath sounds equal bilaterally. GASTROINTESTINAL: Abdomen soft, non-tender, nondistended. Hepatic and splenic margins not palpable. MUSCULOSKELETAL: No obvious deformities. No clubbing. No cyanosis. 1+ bilateral pedal edema. NEUROLOGICAL: Awake and alert. No obvious cranial nerve deficits. Motor grossly within normal limits. Normal speech. PSYCHIATRIC: Appropriate mood and affect; insight and judgment normal. Data Data Last Documented VS Vital Signs Date Time Temp Pulse Resp B/P (MAP) Pulse Ox O2 Delivery O2 Flow Rate FiO2 10/01/17 21:29 20 86 Nasal Cannula 4.00 10/01/17 21:00 99.6 10/01/17 19:30 69 147/74 (98) Orders Orders Complete Blood Count With Diff (10/01/17 19:37) Comprehensive Metabolic Panel (10/01/17 19:37) B-Type Natriuretic Peptide (10/01/17 19:37) Prothrombin Time / Inr (Pt) (10/01/17 19:37) Troponin I (10/01/17 19:37) Urinalysis - C+S If Indicated (10/01/17 19:37) Blood Culture (10/01/17 19:37) Iv Access Insert/Monitor (10/01/17 19:37) Electrocardiogram (10/01/17 19:37) Ecg Monitoring (10/01/17 19:37) Oximetry (10/01/17 19:37) Oxygen Administration (10/01/17 19:37) Chest, Single Ap (10/01/17 19:37) Sodium Chloride 0.9% Flush (Ns Flush) (10/01/17 19:45) Albuterol-Ipratropium Neb (Duoneb Neb) (10/01/17 19:45) Lactic Acid (10/01/17 21:26) Piperacil-Tazo 4.5 Gm Premix (Zosyn 4.5 (10/01/17 21:30) Vancomycin Inj (Vancomycin Inj) (10/01/17 21:30) Admit Order (Ed Use Only) (10/01/17 21:32) Labs Laboratory Tests Test 10/01/17 19:55 10/01/17 20:40 White Blood Count 5.0 TH/MM3 Red Blood Count 3.38 MIL/MM3 Hemoglobin 8.7 GM/DL Hematocrit 27.8 % Mean Corpuscular Volume 82.5 FL Mean Corpuscular Hemoglobin 25.7 PG Mean Corpuscular Hemoglobin Concent 31.2 % Red Cell Distribution Width 16.9 % Platelet Count 372 TH/MM3 Mean Platelet Volume 8.3 FL Neutrophils (%) (Auto) 78.0 % Lymphocytes (%) (Auto) 7.2 % Monocytes (%) (Auto) 8.9 % Eosinophils (%) (Auto) 4.4 % Basophils (%) (Auto) 1.5 % Neutrophils # (Auto) 3.9 TH/MM3 Lymphocytes # (Auto) 0.4 TH/MM3 Monocytes # (Auto) 0.4 TH/MM3 Eosinophils # (Auto) 0.2 TH/MM3 Basophils # (Auto) 0.1 TH/MM3 CBC Comment DIFF FINAL Differential Comment Prothrombin Time 18.9 SEC Prothromb Time International Ratio 1.9 RATIO Blood Urea Nitrogen 32 MG/DL Creatinine 1.64 MG/DL Random Glucose 156 MG/DL Total Protein 6.7 GM/DL Albumin 3.0 GM/DL Calcium Level 8.8 MG/DL Alkaline Phosphatase 53 U/L Aspartate Amino Transf (AST/SGOT) 15 U/L Alanine Aminotransferase (ALT/SGPT) 12 U/L Total Bilirubin 0.5 MG/DL Sodium Level 140 MEQ/L Potassium Level 4.0 MEQ/L Chloride Level 97 MEQ/L Carbon Dioxide Level 39.1 MEQ/L Anion Gap 4 MEQ/L Estimat Glomerular Filtration Rate 41 ML/MIN Troponin I 0.05 NG/ML B-Type Natriuretic Peptide 588 PG/ML Urine Color YELLOW Urine Turbidity CLEAR Urine pH 7.0 Urine Specific [place] 1.011 Urine Protein 300 mg/dL Urine Glucose (UA) NEG mg/dL Urine Ketones NEG mg/dL Urine Occult Blood MOD Urine Nitrite NEG Urine Bilirubin NEG Urine Urobilinogen LESS THAN 2.0 MG/DL Urine Leukocyte Esterase NEG Urine RBC 19 /hpf Urine WBC 1 /hpf Urine Squamous Epithelial Cells <1 /hpf Urine Amorphous Sediment RARE Urine Bacteria RARE /hpf Urine Mucus FEW /lpf Microscopic Urinalysis Comment CULT NOT INDICATED MDM Medical Decision Making Medical Screen Exam Complete: Yes Emergency Medical Condition: Yes Medical Record Reviewed: Yes Interpretation(s) Twelve-lead EKG was reviewed by me. Paced rhythm. Heart rate of 72 bpm. Differential Diagnosis Pneumonia, congestive heart failure, COPD exacerbation, sepsis Narrative Course 9:20 PM blood test results of back and patient does have slight leukocytosis with some left shift. Chest x-ray shows infiltrate but as per the radiologist unchanged. Patient is anemic but unchanged from his last blood test. Does not require blood transfusion at this point. I have asked the nurse to ambulate him and get pulse ox during ambulation since one of his complain was hypoxia and shortness of breath on exertion. Patient was admitted for pneumonia about a week ago. 9:25 PM patient's desatted to 86% on 4 L of oxygen after ambulation. I have decided to admit him at this point. I will give him Zosyn and vancomycin. Awaiting for the hospitalist to call back. Procedures EKG Prior to Arrival: No Diagnosis Primary Impression: Respiratory distress Additional Impressions: Pneumonia Qualified Codes: J18.9 - Pneumonia, unspecified organism Hypoxia Generalized weakness Admitting Information Admitting Physician Requests: Admit Krystle Brizuela MD Oct 01, 2017 19:31
[2017-10-01] MEDS ORDERED: SODIUM CHLORIDE 0.9% FLUSH 10 ML FLUSH IVF PRN (19:45)
[2017-10-01] MEDS: RESP: ALBUTEROL 2.5 MG/IPRATROPIUM 0.5 MG NEB (SCH) INH (19:48)
[2017-10-01 20:23] LABS: AUTOMATED NEUTROPHIL # 3.9 TH/MM3 (1.8-7.7); BASOPHIL # 0.1 TH/MM3 (0-0.2); BASOPHIL % 1.5 % (0.0-2.0); EOSINOPHIL # 0.2 TH/MM3 (0-0.4); EOSINOPHIL % 4.4 % (0.0-4.0); HEMATOCRIT 27.8 % (39.0-51.0); HEMOGLOBIN 8.7 GM/DL (13.0-17.0); LYMPH % 7.2 % (9.0-44.0); LYMPHOCYTE # 0.4 TH/MM3 (1.0-4.8); MEAN CELL VOLUME 82.5 FL (80.0-100.0); MEAN CORPUSCULAR HEMOGLOBIN 25.7 PG (27.0-34.0); MEAN CORPUSCULAR HGB CONC 31.2 % (32.0-36.0); MEAN PLATELET VOLUME 8.3 FL (7.0-11.0); MONO % 8.9 % (0.0-8.0); MONOCYTE # 0.4 TH/MM3 (0-0.9); PLATELET COUNT 372 TH/MM3 (150-450); RED BLOOD COUNT 3.38 MIL/MM3 (4.50-5.90); RED CELL DISTRIBUTION WIDTH 16.9 % (11.6-17.2)
[2017-10-01 20:34] LABS: INTERNATIONAL NORMALIZED RATIO 1.9 RATIO; PROTHROMBIN TIME - PATIENT 18.9 SEC (9.8-11.6)
--- NOTE | 2017-10-01 20:44 | RADRPT ---
EXAM DATE/TIME: 10/01/2017 19:59 [facility] COMPARISON: CHEST SINGLE AP, September 27, 2017, 5:15. INDICATIONS : Shortness of breath for one day. MEDICAL HISTORY : Congestive heart failure. Chronic obstructive pulmonary disease. Hypertension. A-fib SURGICAL HISTORY : Pacemaker. Appendectomy. Cholecystectomy. Hernia repair ENCOUNTER: Initial ACUITY: 1 day PAIN SCORE: 0/10 LOCATION: Bilateral chest FINDINGS: Patchy areas of non-consolidative infiltrate in the right lower lung and partially consolidative infi ltrate in the left lower lung with associated pleural effusion is similar in appearance 10/02/18. Car diac pacer leads in place. No evidence of pneumothorax. Stable cardiomegaly. CONCLUSION: Bilateral lower lung infiltrates and left pleural effusion, unchanged from 09/27/17. Villa Schultz MD on October 01, 2017 at 20:40 Board Certified Radiologist. This report was verified electronically.
[2017-10-01 20:48] LABS: AST (GOT) 15 U/L (15-37); BICARBONATE 39.1 MEQ/L (21.0-32.0); BLOOD UREA NITROGEN 32 MG/DL (7-18); CALCIUM 8.8 MG/DL (8.5-10.1); CHLORIDE 97 MEQ/L (98-107); CREATININE 1.64 MG/DL (0.60-1.30); GLOMERULAR FILTRATION RATE 41 ML/MIN (>89); GLUCOSE,RANDOM 156 MG/DL (74-106); SODIUM (NA) 140 MEQ/L (136-145)
[2017-10-01 20:49] LABS: ALT (GPT) 12 U/L (12-78)
[2017-10-01 20:53] LABS: ALKALINE PHOSPHATASE 53 U/L (45-117); TOTAL BILIRUBIN ADULT 0.5 MG/DL (0.2-1.0); TOTAL PROTEIN 6.7 GM/DL (6.4-8.2); TROPONIN I 0.05 NG/ML (0.02-0.05)
[2017-10-01 21:02] LABS: AMORPHOUS SEDIMENT, URINE RARE; BACTERIA, URINE RARE /hpf; BILIRUBIN, URINE NEG (NEG); BLOOD, URINE MOD (NEG); GLUCOSE,URINE NEG (NEG); KETONE, URINE NEG (NEG); MUCUS URINE FEW /lpf (OCC); NITRITE,URINE NEG (NEG); SQUAMOUS EPITHELIAL CELL URINE <1 /hpf (0-5); URINE COLOR YELLOW (YELLW/STRAW); URINE LEUKOCYTE ESTERASE NEG (NEG)
[2017-10-01] MEDS ORDERED: PIPERACIL-TAZO 4.5 GM PREMIX 100 ML IV ONE (21:30)
[2017-10-01] MEDS ORDERED: VANCOMYCIN INJ 1,000 MG in SODIUM CHLOR 0.9% 250 ML INJ 250 ML IV ONE (21:30)
[2017-10-01] MEDS: ENOXAPARIN SODIUM 100 MG/ML SYRINGE SQ SCH (22:00)
[2017-10-01] MEDS ORDERED: NALOXONE HCL 0.4 MG/ML AMP IV PUSH PRN (22:15)
[2017-10-01] MEDS ORDERED: DOCUSATE SODIUM 50 MG/SENNA 8.6 MG TAB PO PRN (22:15)
[2017-10-01] MEDS ORDERED: SODIUM CHLORIDE 0.9% FLUSH 10 ML FLUSH IV FLUSH PRN (22:15)
[2017-10-02] VITALS (10 sets, daily range): BP systolic 128–141; BP diastolic 62–76; PULSE 70–88; RESP 18; TEMP 97.6–98.2; O2SAT 91–100
--- NOTE | 2017-10-02 00:34 | EKG ---
Date Performed: 10/01/2017 Time Performed: 20:38:41 PTAGE: 81 years EKG: ELECTRONIC VENTRICULAR PACEMAKER ABNORMAL RHYTHM ECG Since the prior tracing, there has bee n no significant change DOCTOR: Tej Pereira Interpretating Date/Time 10/02/2017 00:33:52
[2017-10-02 02:02] LABS: HEMATOCRIT 23.9 % (39.0-51.0); HEMOGLOBIN 7.8 GM/DL (13.0-17.0); MEAN CELL VOLUME 82.8 FL (80.0-100.0); MEAN CORPUSCULAR HEMOGLOBIN 27.1 PG (27.0-34.0); MEAN CORPUSCULAR HGB CONC 32.7 % (32.0-36.0); MEAN PLATELET VOLUME 8.1 FL (7.0-11.0); PLATELET COUNT 315 TH/MM3 (150-450); RED BLOOD COUNT 2.89 MIL/MM3 (4.50-5.90); RED CELL DISTRIBUTION WIDTH 17.1 % (11.6-17.2); WHITE BLOOD COUNT 5.2 TH/MM3 (4.0-11.0)
[2017-10-02 02:06] LABS: PROTHROMBIN TIME - PATIENT 20.7 SEC (9.8-11.6)
[2017-10-02 02:26] LABS: ALBUMIN 2.7 GM/DL (3.4-5.0); AST (GOT) 11 U/L (15-37); BICARBONATE 36.8 MEQ/L (21.0-32.0); BLOOD UREA NITROGEN 33 MG/DL (7-18); CALCIUM 8.1 MG/DL (8.5-10.1); CHLORIDE 100 MEQ/L (98-107); CREATININE 1.56 MG/DL (0.60-1.30); GLOMERULAR FILTRATION RATE 43 ML/MIN (>89); GLUCOSE,RANDOM 209 MG/DL (74-106); SODIUM (NA) 140 MEQ/L (136-145)
[2017-10-02 02:30] LABS: ALKALINE PHOSPHATASE 43 U/L (45-117); ALT (GPT) 10 U/L (12-78); TOTAL BILIRUBIN ADULT 0.4 MG/DL (0.2-1.0); TOTAL PROTEIN 5.8 GM/DL (6.4-8.2)
[2017-10-02] MEDS: LORazepam 2 MG TAB PO PRN ×2 (05:13→22:41)
[2017-10-02] MEDS ORDERED: PIPERACIL-TAZO 3.375 GM PREMIX 50 ML IV SCH (06:00)
[2017-10-02] MEDS ORDERED: ACARBOSE 100 MG PO SCH (08:00)
[2017-10-02] MEDS: CYANOCOBALAMIN 100 MCG TAB PO SCH (08:58)
[2017-10-02] MEDS: NEBIVOLOL 10 MG TAB PO SCH ×2 (08:58→22:42)
[2017-10-02] MEDS: PANTOPRAZOLE SOD 40 MG DELAYED RELEASE TAB PO SCH ×2 (08:58→22:42)
[2017-10-02] MEDS: DIGOXIN 0.125 MG TAB PO SCH (08:58)
[2017-10-02] MEDS: GABAPENTIN 300 MG CAP PO SCH ×2 (08:59→22:40)
[2017-10-02] MEDS: ATORVASTATIN 40 MG TAB PO SCH (08:59)
[2017-10-02] MEDS: TORSEMIDE 20 MG TAB PO SCH ×2 (09:00→22:40)
[2017-10-02] MEDS: LISINOPRIL 20 MG TAB PO SCH (09:00)
[2017-10-02] MEDS ORDERED: VANCOMYCIN INJ 1,000 MG in SODIUM CHLOR 0.9% 250 ML INJ 250 ML IV SCH (10:00)
--- NOTE | 2017-10-02 10:08 | HHI.HP ---
History of Present Illness [facility] Primary Care Physician Melquiades Johnson, DO Admission Diagnosis pneumonia, hypoxia, respiratory distress Diagnoses: (1) Atrial fibrillation (2) Hypoxemia Diagnosis: Principal (3) Congestive heart failure Diagnosis: Principal (4) COPD (chronic obstructive pulmonary disease) Diagnosis: Principal (5) Edema Diagnosis: Secondary (6) Pneumonia Diagnosis: Principal History of Present Illness He developed progressive SOB with worsening ALMODOVAR with dropping O2 sats into the 80sover the past 2 days. He then C/O RUQ abd pain and sought medical attention at the ED. 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 He recently ws also diagnosed with PNA and IV antibiotics have been resumed this adm pending Cards and Pulm consults. Sepsis Criteria Sepsis Criteria (SIRS+source): Infect source susp/known Review of Systems ROS Limitations: Clinical Condition Constitutional: COMPLAINS OF: Weight gain Endocrine: DENIES: Heat/cold intolerance, Polydipsia, Polyuria, Polyphagia Eyes: DENIES: Blurred vision, Diplopia, Eye inflammation, Eye pain, Vision loss , Photosensitivity, Double Vision Ears, nose, mouth, throat: COMPLAINS OF: Tinnitus, Hearing loss Respiratory: COMPLAINS OF: Shortness of breath Cardiovascular: COMPLAINS OF: Palpitations, Lower Extremity Edema Gastrointestinal: COMPLAINS OF: Abdominal pain Genitourinary: DENIES: Sexual dysfunction, Urinary frequency, Urinary incontinence, Urgency, Hematuria, Dysuria, Nocturia, Penile Discharge, Testicular Pain, Testicular Swelling Musculoskeletal: DENIES: Joint pain, Muscle aches, Stiffness, Joint Swelling, Back pain, Neck pain Integumentary: DENIES: Abnormal pigmentation, Nail changes, Pruritus, Rash Hematologic/lymphatic: DENIES: Bruising, Lymphadenopathy Neurologic: DENIES: Abnormal gait, Headache, Localized weakness, Paresthesias, Seizures, Speech Problems, Tremor, Poor Balance Psychiatric: DENIES: Anxiety, Confusion, Mood changes, Depression, Hallucinations, Agitation, Suicidal Ideation, Homicidal Ideation, Delusions Past Family Social History Allergies: Coded Allergies: MRI PRECAUTION (Verified Allergy, Severe, 10/01/17) Uncoded Allergies: STEROIDS (Adverse Reaction, Mild, 01/10/17) ELEVATED BLOOD SUGAR Past Medical History He has COPD; systolic CHF; PNA; AF; BPH; NOLAN; HTN; HPLD; Past Surgical History Bilat TKA; S/P AICD placement; S/P hernia repair; Appy; and cholecystectomy Reported Medications Current Medications Medications (Trade) Dose Ordered Sig/Faviola Route Start Time Stop Time Status Last Admin (Tylenol-Codeine #3) 1 tab Q4H PRN PO 10/01/17 22:15 (Lipitor) 40 mg DAILY PO 10/02/17 09:00 10/02/17 08:59 (Vitamin D3) 5,000 units HS PO 10/02/17 21:00 (Vitamin B12) 100 mcg DAILY PO 10/02/17 09:00 10/02/17 08:58 (Lanoxin) 0.125 mg DAILY PO 10/02/17 09:00 10/02/17 08:58 (Lovenox Inj) 100 mg Q24H SQ 10/01/17 22:00 (Proscar) 5 mg HS PO 10/02/17 21:00 (Neurontin) 600 mg BID PO 10/02/17 09:00 10/02/17 08:59 (Levemir Inj) 15 units HS SQ 10/02/17 21:00 (Prinivil) 20 mg DAILY PO 10/02/17 09:00 (Ativan) 2 mg Q6H PRN PO 10/01/17 22:15 10/02/17 05:13 (Bystolic) 10 mg BID PO 10/02/17 09:00 10/02/17 08:58 (Helene-Colace) 1 tab DAILY PRN PO 10/01/17 22:15 (Demadex) 40 mg BID PO 10/02/17 09:00 10/02/17 09:00 (Desyrel) 50 mg HS PO 10/02/17 21:00 (Coumadin) 5 mg DAILY@1600 PO 10/02/17 16:00 Patient Own Medication PT OWN MED: (Acarb... TIDAC PO 10/02/17 08:00 Future Hold (Protonix) 40 mg BID PO 10/02/17 09:00 10/02/17 08:58 (Coumadin Booklet) 1 ONCE ONCE .XX 10/02/17 16:00 10/02/17 16:01 (NS Flush) 2 ml UNSCH PRN IV FLUSH 10/01/17 22:15 (NS Flush) 2 ml BID IV FLUSH 10/02/17 09:00 (Narcan Inj) 0.4 mg UNSCH PRN IV PUSH 10/01/17 22:15 Piperacillin Sod/ Tazobactam Sod 50 ml @ 100 mls/hr Q8H IV 10/02/17 06:00 10/02/17 05:20 Vancomycin HCl 1000 mg/Sodium Chloride 250 ml @ 250 mls/hr Q12H IV 10/02/17 10:00 Family History noncontributory to this event Social History Resides with family and denies ETOH, Cigs and recreational drug use. Physical Exam Vital Signs Vital Signs Date Time Temp Pulse Resp B/P (MAP) Pulse Ox O2 Delivery O2 Flow Rate FiO2 10/02/17 07:27 97.9 70 18 136/74 (94) 100 10/02/17 05:01 97.9 71 18 132/62 (85) 95 10/02/17 00:01 98.2 70 18 141/67 (91) 97 10/01/17 23:43 10/01/17 22:28 69 16 133/63 (86) 96 Nasal Cannula 4.00 10/01/17 21:29 20 86 Nasal Cannula 4.00 10/01/17 21:23 26 87 Nasal Cannula 4.00 10/01/17 21:00 99.6 10/01/17 19:44 99 Nasal Cannula 4.00 10/01/17 19:43 98 Nasal Cannula 4.00 10/01/17 19:43 16 99 Nasal Cannula 4.00 10/01/17 19:30 98.4 69 16 147/74 (98) 96 Physical Exam GENERAL: This is a well-nourished, well-developed patient, in no apparent distress. SKIN: No rashes, ecchymoses or lesions. Cool and dry. HEAD: Atraumatic. Normocephalic. No temporal or scalp tenderness. EYES: Pupils equal round and reactive. Extraocular motions intact. No scleral icterus. No injection or drainage. ENT: Nose without bleeding, purulent drainage or septal hematoma. Throat without erythema, tonsillar hypertrophy or exudate. Uvula midline. Airway patent. NECK: Trachea midline. No JVD or lymphadenopathy. Supple, nontender, no meningeal signs. CARDIOVASCULAR: Regular rate and rhythm without murmurs, gallops, or rubs. RESPIRATORY: Rales noted over the left ant chest with decreased BS on the left. GASTROINTESTINAL: Abdomen soft, non-tender, nondistended. No hepato-splenomegaly , or palpable masses. No guarding. MUSCULOSKELETAL: Extremities without clubbing, cyanosis, but has tense 2+ bilat pitting edema to the thighs bilat. NEUROLOGICAL: Awake and alert. Cranial nerves II through XII intact. Motor and sensory grossly within normal limits. Five out of 5 muscle strength in all muscle groups. Normal speech. Laboratory Laboratory Tests Test 10/01/17 19:55 10/01/17 20:40 10/01/17 21:35 10/02/17 01:43 White Blood Count 5.0 5.2 Red Blood Count 3.38 2.89 Hemoglobin 8.7 7.8 Hematocrit 27.8 23.9 Mean Corpuscular Volume 82.5 82.8 Mean Corpuscular Hemoglobin 25.7 27.1 Mean Corpuscular Hemoglobin Concent 31.2 32.7 Red Cell Distribution Width 16.9 17.1 Platelet Count 372 315 Mean Platelet Volume 8.3 8.1 Neutrophils (%) (Auto) 78.0 Lymphocytes (%) (Auto) 7.2 Monocytes (%) (Auto) 8.9 Eosinophils (%) (Auto) 4.4 Basophils (%) (Auto) 1.5 Neutrophils # (Auto) 3.9 Lymphocytes # (Auto) 0.4 Monocytes # (Auto) 0.4 Eosinophils # (Auto) 0.2 Basophils # (Auto) 0.1 CBC Comment DIFF FINAL Differential Comment Prothrombin Time 18.9 20.7 Prothromb Time International Ratio 1.9 2.0 Blood Urea Nitrogen 32 33 Creatinine 1.64 1.56 Random Glucose 156 209 Total Protein 6.7 5.8 Albumin 3.0 2.7 Calcium Level 8.8 8.1 Alkaline Phosphatase 53 43 Aspartate Amino Transf (AST/SGOT) 15 11 Alanine Aminotransferase (ALT/SGPT) 12 10 Total Bilirubin 0.5 0.4 Sodium Level 140 140 Potassium Level 4.0 3.8 Chloride Level 97 100 Carbon Dioxide Level 39.1 36.8 Anion Gap 4 3 Estimat Glomerular Filtration Rate 41 43 Troponin I 0.05 B-Type Natriuretic Peptide 588 Urine Color YELLOW Urine Turbidity CLEAR Urine pH 7.0 Urine Specific [place] 1.011 Urine Protein 300 Urine Glucose (UA) NEG Urine Ketones NEG Urine Occult Blood MOD Urine Nitrite NEG Urine Bilirubin NEG Urine Urobilinogen LESS THAN 2.0 Urine Leukocyte Esterase NEG Urine RBC 19 Urine WBC 1 Urine Squamous Epithelial Cells <1 Urine Amorphous Sediment RARE Urine Bacteria RARE Urine Mucus FEW Microscopic Urinalysis Comment CULT NOT INDICATED Lactic Acid Level 2.0 Date/Time Source Procedure Growth Status 10/01/17 19:55 Blood Peripheral Aerobic Blood Culture Pending Received 10/01/17 19:55 Blood Peripheral Anaerobic Blood Culture Pending Received Result Diagram: 10/02/17 0143 10/02/17 0143 Imaging Last Impressions Chest X-Ray 10/01/171936 Signed Impressions: Service Date/Time: Sunday, October 01, 2017 19:59 - CONCLUSION: Bilateral lower lung infiltrates and left pleural effusion, unchanged from 09/27/17. Villa Schultz MD Course He remains in the ED this AM and is resting comfortably. Consults from Cards and Pulm are pending and he is now on IV antibiotics for PNA. Caprini VTE Risk Assessment Caprini VTE Risk Assessment: Mod/High Risk (score >= 2) VTE [facility] Contraindication: Severe LE edema Caprini Risk Assessment Model Point Value = 1 Point Value = 2 Point Value = 3 Point Value = 5 Age 41-60 Minor surgery BMI > 25 kg/m2 Swollen legs Varicose veins or History of unexplained or recurrent spontaneous Oral contraceptives or hormone replacement Sepsis (< 1 month) Serious lung disease, including pneumonia (< 1 month) Abnormal pulmonary function Acute myocardial infarction Congestive heart failure (< 1 month) History of inflammatory bowel disease Medical patient at bed rest Age 61-74 Arthroscopic surgery Major open surgery (> 45 min) Laparoscopic surgery (> 45 min) Malignancy Confined to bed (> 72 hours) Immobilizing plaster cast Central venous access Age >= 75 History of VTE Family history of VTE Factor V Leiden Prothrombin [id number] Lupus anticoagulant Anticardiolipin antibodies Elevated serum homocysteine Heparin-induced thrombocytopenia Other congenital or acquired thrombophilia Stroke (< 1 month) Elective arthroplasty Hip, pelvis, or leg fracture Acute spinal cord injury (< 1 month) Prophylaxis Regimen Total Risk Factor Score Risk Level Prophylaxis Regimen 0-1 Low Early ambulation 2 Moderate Order ONE of the following: *Sequential Compression Device (SCD) *Heparin 5000 units SQ BID 3-4 Higher Order ONE of the following medications: *Heparin 5000 units SQ TID *Enoxaparin/Lovenox 40 mg SQ daily (WT < 150 kg, CrCl > 30 mL/min) *Enoxaparin/Lovenox 30 mg SQ daily (WT < 150 kg, CrCl > 10-29 mL/min) *Enoxaparin/Lovenox 30 mg SQ BID (WT < 150 kg, CrCl > 30 mL/min) AND/OR *Sequential Compression Device (SCD) 5 or more Highest Order ONE of the following medications: *Heparin 5000 units SQ TID (Preferred with Epidurals) *Enoxaparin/Lovenox 40 mg SQ daily (WT < 150 kg, CrCl > 30 mL/min) *Enoxaparin/Lovenox 30 mg SQ daily (WT < 150 kg, CrCl > 10-29 mL/min) *Enoxaparin/Lovenox 30 mg SQ BID (WT < 150 kg, CrCl > 30 mL/min) AND *Sequential Compression Device (SCD) Assessment and Plan Assessment and Plan 1. Recent PNA - Antibiotics resumed for presumed ongoing infection 2. COPD exacerbation - Requiring O2 with diminished sats while ambulating. Pulm Consult is pending. 3. Systolic CHF with implanted AICD - Cont home meds and F/U pending Cards consult 4. RUQ abd pain - essentially resolved but sounds like passive congestion. Will F/U labs and cont to monitor closely. Discussed Condition With Patient Discharge Planning Home Problem Qualifiers (1) Atrial fibrillation: Qualified Codes: I48.2 - Chronic atrial fibrillation (2) Congestive heart failure: (3) COPD (chronic obstructive pulmonary disease): Qualified Codes: J44.1 - Chronic obstructive pulmonary disease with (acute) exacerbation (4) Edema: Qualified Codes: R60.0 - Localized edema (5) Pneumonia: Qualified Codes: J18.9 - Pneumonia, unspecified organism Ja Brody Oct 02, 2017 10:08
--- NOTE | 2017-10-02 16:23 | MB ---
cc: Susan MCKEON M.D. DATE OF CONSULTATION: 10/02/2017. REASON FOR CONSULTATION: HISTORY OF PRESENT ILLNESS: Mr. Sanon is an 81-year-old white male known to me with oxygen-dependent COPD and a chronic cardiomyopathy. He is also diabetic and has significant chronic edema in his legs. He has been hospitalized three times in September just for "feeling badly". I went back and reviewed the previous two records. He had had some GI bleeding and anemia on September 22, presented back with melena again on September 24 but apparently he has had no additional bleeding since then. His x-rays have revealed what I think is probably more a pattern of CHF and pneumonia and he has had multiple cultures in both of those admissions, all of which were negative for any significant infection. He presented back to the emergency room yesterday just complaining of lightheadedness, feeling poorly and a week as well as having his oxygen saturation dropped, which actually is an unusual for him. He normally requires about 4 liters of oxygen at home. He has had no purulent sputum. No hemoptysis. No chest pain. He has significant chronic edema which persists. He has also had bilateral total knee replacements and says the pain has been uncomfortable and painful recently. His chest x-ray on admission revealed small left pleural effusion likely as well as interstitial changes in both lungs with some cephalization. Blood cultures have been negative, and his white count is 5000. PAST MEDICAL HISTORY: Past medical history other than that noted above: 1. Chronic atrial fibrillation on Coumadin with an adequate INR at 2. 2. Hypertension. 3. Sleep apnea. 4. Prostatism. 5. He has had a previous AICD. 6. Hernia repair. 7. Appendectomy. 8. Cholecystectomy. CURRENT MEDICATIONS: Current medications are reviewed in the electronic medical record. SOCIAL HISTORY: He is and living with his . He was a previous smoker but quit entirely about five years and he has no active significant alcohol use. PHYSICAL EXAMINATION: GENERAL: Comfortable at rest. VITAL SIGNS: 98 degrees, 130/70, pulse is 70, respirations 18, sat on four liters is 98% to 100%. HEAD, EYES, EARS, NOSE, THROAT: The sclerae are nonicteric. The mucous membranes are moist. NECK: Neck veins are not distended. CHEST: Some fine rales but no congestion or wheezing. HEART: Soft systolic murmur. No audible S3. EXTREMITIES: Significant lower extremity edema. LABORATORY DATA: Other labs: BUN 33, creatinine 1.56 GFR 43. BNP 588. Albumin 3. ASSESSMENT: Mr. Sanon has chronic pulmonary and cardiac disease. I do not think he has any real signs of active pulmonary infection at present so I have stopped his antibiotics. He does need continued diuresis, balancing the adverse effect given his elevated BUN and creatinine. I am going to check a blood gas to monitor his CO2. He does have obstructive sleep apnea and may have chronic CO2 retention as well. He has not tolerated steroids in the past so will try to avoid that but I will keep him on aerosolized bronchodilators. R. MD BARAK Jorge/YASMINE /3:14 PM /4:10 PM
--- NOTE | 2017-10-02 16:57 | MB ---
cc: BLAKE ROSS M.D. DATE OF CONSULTATION: 10/02/2017. REASON FOR CONSULTATION: Shortness of breath. Possible pneumonia. HISTORY OF PRESENT ILLNESS: Mr. Sanon is an 81-year-old gentleman with congestive heart failure and cardiomyopathy. The gentleman had a previous defibrillator implanted, high blood pressure, hyperlipidemia and is followed by Dr. Mills. He was having a bad day yesterday with shortness of breath. The patient decided to come to the emergency room yesterday night. IV antibiotics were initiated. I was consulted for evaluation and management of heart failure. The chart was reviewed. The patient was evaluated. ALLERGIES: STEROIDS. SOCIAL HISTORY: Negative for smoking and drinking. FAMILY HISTORY: Noncontributory to his current medical condition. MEDICATIONS: 1. Zosyn. 2. Vancomycin. 3. Tylenol. 4. Lipitor 40 milligrams a day. 5. Digoxin. 6. Lovenox. 7. Proscar. 8. Neurontin. 9. Insulin. 10. Lisinopril. 11. Lorazepam. 12. Protonix. 13. Coumadin. REVIEW OF SYSTEMS: Currently he refers feeling better. No chest pain. No chest discomfort. Some shortness of breath but no fever. PHYSICAL EXAMINATION: GENERAL: Alert, fully oriented in bed. VITAL SIGNS: Blood pressure 135/75, pulse 70, respiratory rate 18. LUNGS: Ventilated. CARDIOVASCULAR: S1 and S2 regular. No gallop. ABDOMEN: Abdomen obese, no mass. EXTREMITIES: No edema. EKGS: Electrocardiogram shows V-pacing, possible Bi-V pacing. LABORATORY DATA: Hemoglobin is 7.8, white blood cells 5.2. Potassium is 3.8, creatinine 1.56, improving from 1.64. Troponin less than 0.05. BNP is 590. ASSESSMENT AND RECOMMENDATIONS: Mr. Sanon most likely has pneumonia. He is doing very well on a on IV antibiotics. Troponin is normal. BNP is less than 6. His medication is re-initiated. At this point, my recommendation is: 1. Continue with current management. 2. IV antibiotic. 3. Resume heart failure medication. I will follow Mr. Sanon during hospitalization. His device will be interrogated. Blake Ross MD HS/YASMINE /3:37 PM /4:47 PM
[2017-10-02 16:59] LABS: AUTOMATED NEUTROPHIL # 4.5 TH/MM3 (1.8-7.7); BASOPHIL # 0.1 TH/MM3 (0-0.2); BASOPHIL % 1.7 % (0.0-2.0); EOSINOPHIL # 0.2 TH/MM3 (0-0.4); HEMATOCRIT 26.7 % (39.0-51.0); HEMOGLOBIN 8.2 GM/DL (13.0-17.0); LYMPH % 5.2 % (9.0-44.0); LYMPHOCYTE # 0.3 TH/MM3 (1.0-4.8); MEAN CELL VOLUME 83.6 FL (80.0-100.0); MEAN CORPUSCULAR HEMOGLOBIN 25.8 PG (27.0-34.0); MEAN CORPUSCULAR HGB CONC 30.8 % (32.0-36.0); MEAN PLATELET VOLUME 8.5 FL (7.0-11.0); MONO % 8.4 % (0.0-8.0); MONOCYTE # 0.5 TH/MM3 (0-0.9); NEUT % 80.7 % (16.0-70.0); PLATELET COUNT 343 TH/MM3 (150-450); RED CELL DISTRIBUTION WIDTH 17.1 % (11.6-17.2); WHITE BLOOD COUNT 5.6 TH/MM3 (4.0-11.0)
[2017-10-02 17:23] LABS: ALBUMIN 2.8 GM/DL (3.4-5.0); ALT (GPT) 14 U/L (12-78); AST (GOT) 13 U/L (15-37); BICARBONATE 38.6 MEQ/L (21.0-32.0); BLOOD UREA NITROGEN 32 MG/DL (7-18); CHLORIDE 99 MEQ/L (98-107); CREATININE 1.62 MG/DL (0.60-1.30); GLOMERULAR FILTRATION RATE 41 ML/MIN (>89); GLUCOSE,RANDOM 138 MG/DL (74-106); SODIUM (NA) 141 MEQ/L (136-145)
[2017-10-02 17:37] LABS: ALKALINE PHOSPHATASE 42 U/L (45-117); DIGOXIN 0.7 NG/ML (0.8-2.0); TOTAL BILIRUBIN ADULT 0.5 MG/DL (0.2-1.0); TOTAL PROTEIN 6.2 GM/DL (6.4-8.2)
[2017-10-02] MEDS: SODIUM CHLORIDE 0.9% FLUSH 10 ML FLUSH IV FLUSH SCH ×2 (18:14→22:42)
[2017-10-02] MEDS: WARFARIN SOD 5 MG TAB PO SCH (18:14)
[2017-10-02] MEDS: RESP: ALBUTEROL 2.5 MG/IPRATROPIUM 0.5 MG NEB (SCH) INH (19:18)
[2017-10-02] MEDS: traZODone HCL 50 MG TAB PO SCH (22:40)
[2017-10-02] MEDS: CHOLECALCIFEROL (VIT D3) 5000 UNIT CAP PO SCH (22:41)
[2017-10-02] MEDS: FINASTERIDE 5 MG TAB PO SCH (22:41)
[2017-10-02] MEDS: ENOXAPARIN SODIUM 100 MG/ML SYRINGE SQ SCH (22:43)
[2017-10-02] MEDS: INSULIN DETEMIR 100 UNITS/ML VIAL SQ SCH (22:48)
[2017-10-03] VITALS (12 sets, daily range): BP systolic 97–140; BP diastolic 54–73; PULSE 69–79; RESP 16–20; TEMP 95.7–98.1; O2SAT 93–99
[2017-10-03] MEDS: ACETAMINOPHEN/CODEINE 300 MG/30 MG TAB PO PRN ×2 (04:26→16:31)
[2017-10-03] MEDS: LORazepam 2 MG TAB PO PRN ×2 (04:26→17:47)
[2017-10-03] MEDS: RESP: ALBUTEROL 2.5 MG/IPRATROPIUM 0.5 MG NEB (SCH) INH ×3 (07:35→21:03)
--- NOTE | 2017-10-03 08:08 | PD.CARD.PN ---
Subjective Subjective Remarks Complains of feeling tired. Objective Medications Current Medications Medications (Trade) Dose Ordered Sig/Faviola Route Start Time Stop Time Status Last Admin (Tylenol-Codeine #3) 1 tab Q4H PRN PO 10/01/17 22:15 10/03/17 04:26 (Lipitor) 40 mg DAILY PO 10/02/17 09:00 10/02/17 08:59 (Vitamin D3) 5,000 units HS PO 10/02/17 21:00 10/02/17 22:41 (Vitamin B12) 100 mcg DAILY PO 10/02/17 09:00 10/02/17 08:58 (Lanoxin) 0.125 mg DAILY PO 10/02/17 09:00 10/02/17 08:58 (Lovenox Inj) 100 mg Q24H SQ 10/01/17 22:00 10/02/17 22:43 (Proscar) 5 mg HS PO 10/02/17 21:00 10/02/17 22:41 (Neurontin) 600 mg BID PO 10/02/17 09:00 10/02/17 22:40 (Levemir Inj) 15 units HS SQ 10/02/17 21:00 10/02/17 22:48 (Prinivil) 20 mg DAILY PO 10/02/17 09:00 10/02/17 09:00 (Ativan) 2 mg Q6H PRN PO 10/01/17 22:15 10/03/17 04:26 (Bystolic) 10 mg BID PO 10/02/17 09:00 10/02/17 22:42 (Helene-Colace) 1 tab DAILY PRN PO 10/01/17 22:15 (Demadex) 40 mg BID PO 10/02/17 09:00 10/02/17 22:40 (Desyrel) 50 mg HS PO 10/02/17 21:00 10/02/17 22:40 (Coumadin) 5 mg DAILY@1600 PO 10/02/17 16:00 10/02/17 18:14 Patient Own Medication PT OWN MED: (Acarb... TIDAC PO 10/02/17 08:00 Future Hold (Protonix) 40 mg BID PO 10/02/17 09:00 10/02/17 22:42 (NS Flush) 2 ml UNSCH PRN IV FLUSH 10/01/17 22:15 (NS Flush) 2 ml BID IV FLUSH 10/02/17 09:00 10/02/17 22:42 (Narcan Inj) 0.4 mg UNSCH PRN IV PUSH 10/01/17 22:15 (Duoneb Neb) 1 ampule TID NEB INH 10/02/17 20:00 10/02/17 19:18 Vital Signs / I&O Vital Signs Date Time Temp Pulse Resp B/P (MAP) Pulse Ox O2 Delivery O2 Flow Rate FiO2 10/03/17 03:55 98.1 69 16 140/73 (95) 97 10/03/17 00:00 98.0 71 18 137/66 (89) 97 10/02/17 20:17 98.1 70 18 136/67 (90) 94 10/02/17 19:20 96 Nasal Cannula 4.00 10/02/17 15:39 97.6 73 18 128/62 (84) 91 10/02/17 15:00 73 10/02/17 11:42 98.0 70 18 135/76 (95) 98 10/02/17 10:56 96 Nasal Cannula 4.00 Physical Exam GENERAL: Well-nourished, well-developed patient. SKIN: Warm and dry. HEAD: Normocephalic. EYES: No scleral icterus. No injection or drainage. NECK: Supple, trachea midline. No JVD or lymphadenopathy. CARDIOVASCULAR: Regular rate and rhythm without murmurs, gallops, or rubs. RESPIRATORY: Breath sounds equal, diminished bilaterally. Right base crackles. No accessory muscle use. GASTROINTESTINAL: Abdomen soft, non-tender, nondistended. EXTREMITIES: No cyanosis, or edema. NEUROLOGICAL: Awake, arousable, mildly confused. Aware he is in the hospital. Non-focal. Laboratory Laboratory Tests Test 10/02/17 16:18 White Blood Count 5.6 TH/MM3 Red Blood Count 3.20 MIL/MM3 Hemoglobin 8.2 GM/DL Hematocrit 26.7 % Mean Corpuscular Volume 83.6 FL Mean Corpuscular Hemoglobin 25.8 PG Mean Corpuscular Hemoglobin Concent 30.8 % Red Cell Distribution Width 17.1 % Platelet Count 343 TH/MM3 Mean Platelet Volume 8.5 FL Neutrophils (%) (Auto) 80.7 % Lymphocytes (%) (Auto) 5.2 % Monocytes (%) (Auto) 8.4 % Eosinophils (%) (Auto) 4.0 % Basophils (%) (Auto) 1.7 % Neutrophils # (Auto) 4.5 TH/MM3 Lymphocytes # (Auto) 0.3 TH/MM3 Monocytes # (Auto) 0.5 TH/MM3 Eosinophils # (Auto) 0.2 TH/MM3 Basophils # (Auto) 0.1 TH/MM3 CBC Comment DIFF FINAL Differential Comment Blood Urea Nitrogen 32 MG/DL Creatinine 1.62 MG/DL Random Glucose 138 MG/DL Total Protein 6.2 GM/DL Albumin 2.8 GM/DL Calcium Level 8.0 MG/DL Alkaline Phosphatase 42 U/L Aspartate Amino Transf (AST/SGOT) 13 U/L Alanine Aminotransferase (ALT/SGPT) 14 U/L Total Bilirubin 0.5 MG/DL Sodium Level 141 MEQ/L Potassium Level 4.2 MEQ/L Chloride Level 99 MEQ/L Carbon Dioxide Level 38.6 MEQ/L Anion Gap 3 MEQ/L Estimat Glomerular Filtration Rate 41 ML/MIN Digoxin Level 0.7 NG/ML Imaging Last Impressions Chest X-Ray 10/01/171936 Signed Impressions: Service Date/Time: Sunday, October 01, 2017 19:59 - CONCLUSION: Bilateral lower lung infiltrates and left pleural effusion, unchanged from 09/27/17. Villa Schultz MD Assessment and Plan Problem List: (1) Acute respiratory failure ICD Codes: J96.00 - Acute respiratory failure, unspecified whether with hypoxia or hypercapnia Status: Chronic Plan: [place] to be likely pneumonia. Patient may benefit from a speech therapy consultation to rule out aspiration. He has a [facility] [place] BIV ICD which will require interrogation will evaluate device status and recent arrhythmias. Continue current therapy at this time per my discussion with Dr. sanchez. Problem Qualifiers (1) Acute respiratory failure: Qualified Codes: J96.00 - Acute respiratory failure, unspecified whether with hypoxia or hypercapnia Sasha Judd Oct 03, 2017 08:08
[2017-10-03] MEDS: NEBIVOLOL 10 MG TAB PO SCH ×2 (09:00→22:04)
[2017-10-03] MEDS: LISINOPRIL 20 MG TAB PO SCH (09:00)
--- NOTE | 2017-10-03 09:24 | HHI.PR ---
Subjective Remarks Still quite SOB on exertion. Objective Vital Signs Date Time Temp Pulse Resp B/P (MAP) Pulse Ox O2 Delivery O2 Flow Rate FiO2 10/03/17 08:00 95.7 73 17 97/54 (68) 95 10/03/17 03:55 98.1 69 16 140/73 (95) 97 10/03/17 00:00 98.0 71 18 137/66 (89) 97 10/02/17 20:17 98.1 70 18 136/67 (90) 94 10/02/17 19:20 96 Nasal Cannula 4.00 10/02/17 15:39 97.6 73 18 128/62 (84) 91 10/02/17 15:00 73 10/02/17 11:42 98.0 70 18 135/76 (95) 98 10/02/17 10:56 96 Nasal Cannula 4.00 Result Diagram: 10/02/17 1618 10/02/17 1618 Imaging Objective Remarks GENERAL: This is a well-nourished, well-developed patient, sob with conversation SKIN: No rashes, ecchymoses or lesions. Cool and dry. HEAD: Atraumatic. Normocephalic. No temporal or scalp tenderness. EYES: Pupils equal round and reactive. Extraocular motions intact. No scleral icterus. No injection or drainage. ENT: Nose without bleeding, purulent drainage or septal hematoma. Throat without erythema, tonsillar hypertrophy or exudate. Uvula midline. Airway patent. NECK: Trachea midline. No JVD or lymphadenopathy. Supple, nontender, no meningeal signs. CARDIOVASCULAR: Regular rate and rhythm without murmurs, gallops, or rubs. RESPIRATORY: Decreased BS b/l, expiratory wheezes GASTROINTESTINAL: Abdomen soft, non-tender, nondistended. No hepato-splenomegaly , or palpable masses. No guarding. MUSCULOSKELETAL: Extremities without clubbing, cyanosis, but has 2+ B/L pitting edema NEUROLOGICAL: Awake and alert. Cranial nerves II through XII intact. Motor and sensory grossly within normal limits. Five out of 5 muscle strength in all muscle groups. Normal speech. Medications and IVs Current Medications Medications (Trade) Dose Ordered Sig/Faviola Route Start Time Stop Time Status Last Admin (Tylenol-Codeine #3) 1 tab Q4H PRN PO 10/01/17 22:15 10/03/17 04:26 (Lipitor) 40 mg DAILY PO 10/02/17 09:00 10/02/17 08:59 (Vitamin D3) 5,000 units HS PO 10/02/17 21:00 10/02/17 22:41 (Vitamin B12) 100 mcg DAILY PO 10/02/17 09:00 10/02/17 08:58 (Lanoxin) 0.125 mg DAILY PO 10/02/17 09:00 10/02/17 08:58 (Lovenox Inj) 100 mg Q24H SQ 10/01/17 22:00 10/02/17 22:43 (Proscar) 5 mg HS PO 10/02/17 21:00 10/02/17 22:41 (Neurontin) 600 mg BID PO 10/02/17 09:00 10/02/17 22:40 (Levemir Inj) 15 units HS SQ 10/02/17 21:00 10/02/17 22:48 (Prinivil) 20 mg DAILY PO 10/02/17 09:00 10/02/17 09:00 (Ativan) 2 mg Q6H PRN PO 10/01/17 22:15 10/03/17 04:26 (Bystolic) 10 mg BID PO 10/02/17 09:00 10/02/17 22:42 (Helene-Colace) 1 tab DAILY PRN PO 10/01/17 22:15 (Demadex) 40 mg BID PO 10/02/17 09:00 10/02/17 22:40 (Desyrel) 50 mg HS PO 10/02/17 21:00 10/02/17 22:40 (Coumadin) 5 mg DAILY@1600 PO 10/02/17 16:00 10/02/17 18:14 Patient Own Medication PT OWN MED: (Acarb... TIDAC PO 10/02/17 08:00 Future Hold (Protonix) 40 mg BID PO 10/02/17 09:00 10/02/17 22:42 (NS Flush) 2 ml UNSCH PRN IV FLUSH 10/01/17 22:15 (NS Flush) 2 ml BID IV FLUSH 10/02/17 09:00 10/02/17 22:42 (Narcan Inj) 0.4 mg UNSCH PRN IV PUSH 10/01/17 22:15 (Duoneb Neb) 1 ampule TID NEB INH 10/02/17 20:00 10/02/17 19:18 Assessment and Plan Problem List: (1) COPD (chronic obstructive pulmonary disease) ICD Codes: J44.9 - Chronic obstructive pulmonary disease Status: Chronic Plan: Pulmonary following, patient unable to tolerate steroids, cont DuoNeb, keep sats >92. (2) Congestive heart failure ICD Codes: I50.9 - Congestive heart failure Status: Acute Plan: Cardiology following, cont with Diuresis. DuoNeb, HF medication Bystolic, lisinopril (3) A-fib ICD Codes: I48.91 - Unspecified atrial fibrillation Status: Chronic Plan: cardiology following, has ICD, that will be interrogated per cardiology notes Cont coumadin, Digoxin, Bystolic monitor INR. rate controlled (4) NEREYDA (acute kidney injury) ICD Codes: N17.9 - NEREYDA (acute kidney injury) Status: Acute Plan: Monitor BMP closely while being diuresed (5) Diabetes ICD Codes: E11.9 - Diabetes Status: Chronic Plan: Blood sugars controlled, Cont to monitor Levemir 15u qhs, SC coverage Assessment and Plan Will have ST screen for possible aspiration May need snf at D/C r/t recent hospital admissions. Problem Qualifiers (1) COPD (chronic obstructive pulmonary disease): Qualified Codes: J44.1 - Chronic obstructive pulmonary disease with (acute) exacerbation (2) Congestive heart failure: Guadalupe Orta Oct 03, 2017 09:24
[2017-10-03] MEDS: GABAPENTIN 300 MG CAP PO SCH ×2 (09:54→22:02)
[2017-10-03] MEDS: PANTOPRAZOLE SOD 40 MG DELAYED RELEASE TAB PO SCH ×2 (09:54→22:04)
[2017-10-03] MEDS: CYANOCOBALAMIN 100 MCG TAB PO SCH (09:54)
[2017-10-03] MEDS: SODIUM CHLORIDE 0.9% FLUSH 10 ML FLUSH IV FLUSH SCH ×2 (09:54→22:01)
[2017-10-03] MEDS: ATORVASTATIN 40 MG TAB PO SCH (09:54)
[2017-10-03] MEDS: DIGOXIN 0.125 MG TAB PO SCH (09:55)
[2017-10-03] MEDS: TORSEMIDE 20 MG TAB PO SCH ×2 (12:08→22:03)
[2017-10-03] MEDS ORDERED: METOLAZONE 5 MG TAB PO ONE (13:30)
[2017-10-03] MEDS: WARFARIN SOD 5 MG TAB PO SCH (16:30)
[2017-10-03] MEDS ORDERED: RESP: ALBUTEROL 2.5 MG/IPRATROPIUM 0.5 MG NEB (PRN) NEB (17:15)
[2017-10-03 17:26] LABS: INTERNATIONAL NORMALIZED RATIO 2.3 RATIO; PROTHROMBIN TIME - PATIENT 23.2 SEC (9.8-11.6)
[2017-10-03 17:38] LABS: BICARBONATE 38.9 MEQ/L (21.0-32.0); CALCIUM 8.2 MG/DL (8.5-10.1); CREATININE 1.5 MG/DL (0.60-1.30)
[2017-10-03] MEDS: INSULIN DETEMIR 100 UNITS/ML VIAL SQ SCH (21:00)
[2017-10-03] MEDS: CHOLECALCIFEROL (VIT D3) 5000 UNIT CAP PO SCH (22:02)
[2017-10-03] MEDS: traZODone HCL 50 MG TAB PO SCH (22:04)
[2017-10-03] MEDS: FINASTERIDE 5 MG TAB PO SCH (22:04)
[2017-10-03] MEDS: ENOXAPARIN SODIUM 100 MG/ML SYRINGE SQ SCH (22:05)
[2017-10-04] VITALS (13 sets, daily range): BP systolic 116–132; BP diastolic 58–72; PULSE 69–74; RESP 16–20; TEMP 97.8–98.3; O2SAT 92–100
[2017-10-04] MEDS: LORazepam 2 MG TAB PO PRN ×3 (06:03→21:48)
[2017-10-04] MEDS: ACETAMINOPHEN/CODEINE 300 MG/30 MG TAB PO PRN ×2 (06:29→17:19)
[2017-10-04] MEDS: RESP: ALBUTEROL 2.5 MG/IPRATROPIUM 0.5 MG NEB (SCH) INH ×3 (07:13→20:48)
[2017-10-04 08:02] LABS: INTERNATIONAL NORMALIZED RATIO 2.8 RATIO; PROTHROMBIN TIME - PATIENT 28.4 SEC (9.8-11.6)
[2017-10-04 08:18] LABS: BICARBONATE 38.7 MEQ/L (21.0-32.0); CALCIUM 8.2 MG/DL (8.5-10.1); CREATININE 1.49 MG/DL (0.60-1.30)
[2017-10-04] MEDS: GABAPENTIN 300 MG CAP PO SCH ×2 (09:32→21:40)
[2017-10-04] MEDS: DIGOXIN 0.125 MG TAB PO SCH (09:33)
[2017-10-04] MEDS: NEBIVOLOL 10 MG TAB PO SCH ×2 (09:33→21:40)
[2017-10-04] MEDS: LISINOPRIL 20 MG TAB PO SCH (09:33)
[2017-10-04] MEDS: CYANOCOBALAMIN 100 MCG TAB PO SCH (09:33)
[2017-10-04] MEDS: SODIUM CHLORIDE 0.9% FLUSH 10 ML FLUSH IV FLUSH SCH ×2 (09:33→21:42)
[2017-10-04] MEDS: PANTOPRAZOLE SOD 40 MG DELAYED RELEASE TAB PO SCH ×2 (09:33→21:40)
[2017-10-04] MEDS: TORSEMIDE 20 MG TAB PO SCH ×2 (09:33→21:41)
[2017-10-04] MEDS: ATORVASTATIN 40 MG TAB PO SCH (09:34)
--- NOTE | 2017-10-04 10:05 | HHI.PR ---
Subjective Remarks Found in bed, O2 4liters, c/o sob with exertion Objective Vital Signs Date Time Temp Pulse Resp B/P (MAP) Pulse Ox O2 Delivery O2 Flow Rate FiO2 10/04/17 07:24 97.8 70 18 119/63 (81) 92 Manual Cuff/Auscultation 10/04/17 07:17 100 Nasal Cannula 2.00 10/04/17 06:29 122/72 (89) 10/04/17 04:19 69 10/04/17 01:07 97.9 71 20 116/59 (78) 97 10/04/17 00:13 69 10/03/17 21:05 95 Nasal Cannula 5.00 10/03/17 20:46 69 10/03/17 19:23 97.9 69 20 119/58 (78) 99 10/03/17 17:43 120/57 (78) 10/03/17 16:06 73 10/03/17 16:00 95.8 71 17 110/61 (77) 98 10/03/17 12:22 72 10/03/17 12:00 96.1 70 17 114/64 (81) 93 I/O 10/03/17 10/03/17 10/03/17 10/04/17 10/04/17 10/04/17 07:00 15:00 23:00 07:00 15:00 23:00 Output Total 350 ml Balance -350 ml Output Urine Total 350 ml # Voids 1 # Bowel Movements 0 Result Diagram: 10/02/17 1618 10/04/17 0733 Objective Remarks GENERAL: This is a well-nourished, well-developed patient, sob with conversation SKIN: No rashes, ecchymoses or lesions. Cool and dry. HEAD: Atraumatic. Normocephalic. No temporal or scalp tenderness. EYES: Pupils equal round and reactive. Extraocular motions intact. No scleral icterus. No injection or drainage. ENT: Nose without bleeding, purulent drainage or septal hematoma. Throat without erythema, tonsillar hypertrophy or exudate. Uvula midline. Airway patent. NECK: Trachea midline. No JVD or lymphadenopathy. Supple, nontender, no meningeal signs. CARDIOVASCULAR: Regular rate and rhythm without murmurs, gallops, or rubs. RESPIRATORY: Decreased BS, no wheezes or rhonchi GASTROINTESTINAL: Abdomen soft, non-tender, nondistended. No hepato-splenomegaly , or palpable masses. No guarding. MUSCULOSKELETAL: Extremities without clubbing, cyanosis, but has 2+ B/L pitting edema NEUROLOGICAL: Awake and alert. Cranial nerves II through XII intact. Motor and sensory grossly within normal limits. Five out of 5 muscle strength in all muscle groups. Normal speech. Medications and IVs Laboratory Tests Test 10/01/17 19:55 10/01/17 20:40 10/01/17 21:35 10/02/17 01:43 Red Blood Count 3.38 MIL/MM3 (4.50-5.90) 2.89 MIL/MM3 (4.50-5.90) Hemoglobin 8.7 GM/DL (13.0-17.0) 7.8 GM/DL (13.0-17.0) Hematocrit 27.8 % (39.0-51.0) 23.9 % (39.0-51.0) Mean Corpuscular Hemoglobin 25.7 PG (27.0-34.0) Mean Corpuscular Hemoglobin Concent 31.2 % (32.0-36.0) Neutrophils (%) (Auto) 78.0 % (16.0-70.0) Lymphocytes (%) (Auto) 7.2 % (9.0-44.0) Monocytes (%) (Auto) 8.9 % (0.0-8.0) Eosinophils (%) (Auto) 4.4 % (0.0-4.0) Lymphocytes # (Auto) 0.4 TH/MM3 (1.0-4.8) Prothrombin Time 18.9 SEC (9.8-11.6) 20.7 SEC (9.8-11.6) Blood Urea Nitrogen 32 MG/DL (7-18) 33 MG/DL (7-18) Creatinine 1.64 MG/DL (0.60-1.30) 1.56 MG/DL (0.60-1.30) Random Glucose 156 MG/DL (74-106) 209 MG/DL (74-106) Albumin 3.0 GM/DL (3.4-5.0) 2.7 GM/DL (3.4-5.0) Chloride Level 97 MEQ/L (98-107) Carbon Dioxide Level 39.1 MEQ/L (21.0-32.0) 36.8 MEQ/L (21.0-32.0) Anion Gap 4 MEQ/L (5-15) 3 MEQ/L (5-15) Estimat Glomerular Filtration Rate 41 ML/MIN (>89) 43 ML/MIN (>89) B-Type Natriuretic Peptide 588 PG/ML (0-100) Urine Protein 300 mg/dL (NEG-TRACE) Urine Occult Blood MOD (NEG) Urine RBC 19 /hpf (0-3) Urine Bacteria RARE /hpf (NONE) Urine Mucus FEW /lpf (OCC) Total Protein 5.8 GM/DL (6.4-8.2) Calcium Level 8.1 MG/DL (8.5-10.1) Alkaline Phosphatase 43 U/L (45-117) Aspartate Amino Transf (AST/SGOT) 11 U/L (15-37) Alanine Aminotransferase (ALT/SGPT) 10 U/L (12-78) Test 10/02/17 16:18 10/03/17 16:28 10/04/17 07:33 Red Blood Count 3.20 MIL/MM3 (4.50-5.90) Hemoglobin 8.2 GM/DL (13.0-17.0) Hematocrit 26.7 % (39.0-51.0) Mean Corpuscular Hemoglobin 25.8 PG (27.0-34.0) Mean Corpuscular Hemoglobin Concent 30.8 % (32.0-36.0) Neutrophils (%) (Auto) 80.7 % (16.0-70.0) Lymphocytes (%) (Auto) 5.2 % (9.0-44.0) Monocytes (%) (Auto) 8.4 % (0.0-8.0) Lymphocytes # (Auto) 0.3 TH/MM3 (1.0-4.8) Blood Urea Nitrogen 32 MG/DL (7-18) 33 MG/DL (7-18) 34 MG/DL (7-18) Creatinine 1.62 MG/DL (0.60-1.30) 1.50 MG/DL (0.60-1.30) 1.49 MG/DL (0.60-1.30) Random Glucose 138 MG/DL (74-106) 111 MG/DL (74-106) Total Protein 6.2 GM/DL (6.4-8.2) Albumin 2.8 GM/DL (3.4-5.0) Calcium Level 8.0 MG/DL (8.5-10.1) 8.2 MG/DL (8.5-10.1) 8.2 MG/DL (8.5-10.1) Alkaline Phosphatase 42 U/L (45-117) Aspartate Amino Transf (AST/SGOT) 13 U/L (15-37) Carbon Dioxide Level 38.6 MEQ/L (21.0-32.0) 38.9 MEQ/L (21.0-32.0) 38.7 MEQ/L (21.0-32.0) Anion Gap 3 MEQ/L (5-15) 3 MEQ/L (5-15) 2 MEQ/L (5-15) Estimat Glomerular Filtration Rate 41 ML/MIN (>89) 45 ML/MIN (>89) 45 ML/MIN (>89) Digoxin Level 0.7 NG/ML (0.8-2.0) Prothrombin Time 23.2 SEC (9.8-11.6) 28.4 SEC (9.8-11.6) Assessment and Plan Problem List: (1) COPD (chronic obstructive pulmonary disease) ICD Codes: J44.9 - Chronic obstructive pulmonary disease Status: Chronic Plan: Pulmonary following, patient unable to tolerate steroids, cont DuoNeb, keep sats >92 CXR in am. (2) Congestive heart failure ICD Codes: I50.9 - Congestive heart failure Status: Acute Plan: Cardiology following, cont with Diuresis. DuoNeb, HF medication Bystolic, lisinopril (3) A-fib ICD Codes: I48.91 - Unspecified atrial fibrillation Status: Chronic Plan: cardiology following, has ICD, that will be interrogated per cardiology notes Cont coumadin, Digoxin, Bystolic monitor INR. rate controlled (4) NEREYDA (acute kidney injury) ICD Codes: N17.9 - NEREYDA (acute kidney injury) Status: Acute Plan: Monitor BMP closely while being diuresed (5) Diabetes ICD Codes: E11.9 - Diabetes Status: Chronic Plan: Blood sugars controlled, Cont to monitor Levemir 15u qhs, SC coverage Assessment and Plan Will have ST screen for possible aspiration, Swallow test negative for swallowing difficulties recommend barium swallow as patient voices that he coughs with meals, May need snf at D/C r/t recent hospital admissions PT to eval Problem Qualifiers (1) COPD (chronic obstructive pulmonary disease): Qualified Codes: J44.1 - Chronic obstructive pulmonary disease with (acute) exacerbation (2) Congestive heart failure: Guadalupe Orta Oct 04, 2017 10:05
--- NOTE | 2017-10-04 11:16 | RADRPT ---
EXAM DATE/TIME: 10/04/2017 00:00 [facility] COMPARISON: No previous studies available for comparison. INDICATIONS : Pain. Evaulate for Aspiration. Bilateral lower lobe pneumonia. FLUORO TIME: 1.4 minutes IMAGE COUNT: 0 CONTRAST: Dose as prescribed by speech pathologist. MEDICAL HISTORY : Cardiovascular disease. Hypertension. Diabetes mellitus type 2. SURGICAL HISTORY : Cholecystectomy. Appendectomy.Pacemaker ENCOUNTER: Subsequent ACUITY: 4 - 6 days PAIN SCORE: 0/10 LOCATION: Bilateral Esophagus. FINDINGS: A modified barium swallow was performed with speech pathology. Patient was given a variety of liquids to swallow. The patient showed transient penetration with the thin barium. No aspiration with any consistency of barium. For a full detailed report, see report by the speech pathologist. CONCLUSION: No aspiration observed. Villa Mcconnell Jr., MD on October 04, 2017 at 11:13 Board Certified Radiologist. This report was verified electronically.
[2017-10-04] MEDS ORDERED: METOLAZONE 5 MG TAB PO ONE (13:30)
[2017-10-04] MEDS: WARFARIN SOD 5 MG TAB PO SCH (15:12)
--- NOTE | 2017-10-04 18:32 | HHI.PR ---
Subjective Remarks Feeling better Objective Vital Signs Date Time Temp Pulse Resp B/P (MAP) Pulse Ox O2 Delivery O2 Flow Rate FiO2 10/04/17 17:14 126/62 (83) 10/04/17 15:54 69 10/04/17 13:49 98.1 71 18 132/67 (88) 95 10/04/17 12:09 71 10/04/17 10:09 98 Nasal Cannula 4.00 10/04/17 08:29 74 10/04/17 07:24 97.8 70 18 119/63 (81) 92 Manual Cuff/Auscultation 10/04/17 07:17 100 Nasal Cannula 2.00 10/04/17 06:29 122/72 (89) 10/04/17 04:19 69 10/04/17 01:07 97.9 71 20 116/59 (78) 97 10/04/17 00:13 69 10/03/17 21:05 95 Nasal Cannula 5.00 10/03/17 20:46 69 10/03/17 19:23 97.9 69 20 119/58 (78) 99 I/O 10/03/17 10/03/17 10/03/17 10/04/17 10/04/17 10/04/17 07:00 15:00 23:00 07:00 15:00 23:00 Output Total 750 ml 350 ml Balance -750 ml -350 ml Output Urine Total 750 ml 350 ml # Voids 1 1 # Bowel Movements 0 Result Diagram: 10/02/17 1618 10/04/17 0733 Imaging Alert, fully oriented Lungs: ventilated Heart: S1, S2 regular Abdomen: soft, no mass, obese Ext: no edema Last Impressions Modified Barium Swallow 10/04/17 0000 Signed Impressions: Service Date/Time: Wednesday, October 04, 2017 00:00 - CONCLUSION: No aspiration observed. Villa Mcconnell Jr., MD Chest X-Ray 10/01/17 1937 Signed Impressions: Service Date/Time: Sunday, October 01, 2017 19:59 - CONCLUSION: Bilateral lower lung infiltrates and left pleural effusion, unchanged from 09/27/17. Villa Schultz MD Current Medications Medications (Trade) Dose Ordered Sig/Faviola Route Start Time Stop Time Status Last Admin (Tylenol-Codeine #3) 1 tab Q4H PRN PO 10/01/17 22:15 2/13/18 17:19 (Lipitor) 40 mg DAILY PO 10/02/17 09:00 10/04/17 09:34 (Vitamin D3) 5,000 units HS PO 10/02/17 21:00 10/03/17 22:02 (Vitamin B12) 100 mcg DAILY PO 10/02/17 09:00 10/04/17 09:33 (Lanoxin) 0.125 mg DAILY PO 10/02/17 09:00 10/04/17 09:33 (Lovenox Inj) 100 mg Q24H SQ 10/01/17 22:00 10/03/17 22:05 (Proscar) 5 mg HS PO 10/02/17 21:00 10/03/17 22:04 (Neurontin) 600 mg BID PO 10/02/17 09:00 10/04/17 09:32 (Levemir Inj) 15 units HS SQ 10/02/17 21:00 10/03/17 21:00 (Prinivil) 20 mg DAILY PO 10/02/17 09:00 10/04/17 09:33 (Ativan) 2 mg Q6H PRN PO 10/01/17 22:15 10/04/17 14:03 (Bystolic) 10 mg BID PO 10/02/17 09:00 10/04/17 09:33 (Helene-Colace) 1 tab DAILY PRN PO 10/01/17 22:15 (Demadex) 40 mg BID PO 10/02/17 09:00 10/04/17 09:33 (Desyrel) 50 mg HS PO 10/02/17 21:00 10/03/17 22:04 (Coumadin) 5 mg DAILY@1600 PO 10/02/17 16:00 10/04/17 15:12 Patient Own Medication PT OWN MED: (Acarb... TIDAC PO 10/02/17 08:00 Future Hold (Protonix) 40 mg BID PO 10/02/17 09:00 10/04/17 09:33 (NS Flush) 2 ml UNSCH PRN IV FLUSH 10/01/17 22:15 (NS Flush) 2 ml BID IV FLUSH 10/02/17 09:00 10/04/17 09:33 (Narcan Inj) 0.4 mg UNSCH PRN IV PUSH 10/01/17 22:15 (Duoneb Neb) 1 ampule TID NEB INH 10/02/17 20:00 10/04/17 13:11 (Duoneb Neb) 1 ampule Q6HR NEB PRN NEB 10/03/17 17:15 Assessment and Plan Problem List: (1) CHF exacerbation ICD Codes: I50.9 - Heart failure, unspecified Status: Acute Plan: Condition significantly improve Doing better SOB improve Will continue on current management (2) A-fib ICD Codes: I48.91 - Unspecified atrial fibrillation Plan: V pacing HR control Dangelo Lang MD Oct 04, 2017 18:32
[2017-10-04] MEDS: traZODone HCL 50 MG TAB PO SCH (21:40)
[2017-10-04] MEDS: CHOLECALCIFEROL (VIT D3) 5000 UNIT CAP PO SCH (21:41)
[2017-10-04] MEDS: FINASTERIDE 5 MG TAB PO SCH (21:41)
[2017-10-04] MEDS: ENOXAPARIN SODIUM 100 MG/ML SYRINGE SQ SCH (21:42)
[2017-10-04] MEDS: INSULIN DETEMIR 100 UNITS/ML VIAL SQ SCH (22:09)
[2017-10-05 00:03] VITALS: PULSE 69
[2017-10-05 00:11] VITALS: BP 123/59; PULSE 69; RESP 16; TEMP 97.5; O2SAT 90
[2017-10-05] MEDS: ACETAMINOPHEN/CODEINE 300 MG/30 MG TAB PO PRN (03:47)
[2017-10-05 03:53] VITALS: BP 120/60; PULSE 70; RESP 14; TEMP 96.8; O2SAT 96
[2017-10-05 04:38] VITALS: PULSE 69
[2017-10-05] MEDS: LORazepam 2 MG TAB PO PRN (05:29)
[2017-10-05] MEDS: RESP: ALBUTEROL 2.5 MG/IPRATROPIUM 0.5 MG NEB (SCH) INH (07:16)
[2017-10-05 07:29] VITALS: BP 118/58; PULSE 71; RESP 18; TEMP 97.9; O2SAT 93
[2017-10-05 07:31] LABS: INTERNATIONAL NORMALIZED RATIO 2.8 RATIO; PROTHROMBIN TIME - PATIENT 28.2 SEC (9.8-11.6)
[2017-10-05 07:50] LABS: BICARBONATE 39.9 MEQ/L (21.0-32.0); CALCIUM 8.9 MG/DL (8.5-10.1); CREATININE 1.87 MG/DL (0.60-1.30)
--- NOTE | 2017-10-05 09:38 | RADRPT ---
EXAM DATE/TIME: 10/05/2017 09:25 [facility] COMPARISON: CHEST PA & LAT, March 09, 2015, 12:35. INDICATIONS : Shortness of breath. MEDICAL HISTORY : Congestive heart failure. Chronic obstructive pulmonary disease.Hypertension. A-fib. SURGICAL HISTORY : Pacemaker. Appendectomy. Cholecystectomy. Hernia repair ENCOUNTER: Subsequent ACUITY: 3 days PAIN SCORE: 0/10 LOCATION: Bilateral chest FINDINGS: 3-lead pacer on the left. Cardiomegaly with mild interstitial edema progressed in the interval. Min imal bibasilar parenchymal changes. The portion of the bony skeleton visualized is unremarkable. CONCLUSION: Mild to moderate congestive failure; new from comparison study. Virgil Melendez MD FACR on October 05, 2017 at 9:35 Board Certified Radiologist. This report was verified electronically.
--- NOTE | 2017-10-05 16:47 | HHI.DS ---
Discharge Summary Admission Date Oct 01, 2017 at 21:34 Admitting Diagnosis pneumonia, hypoxia, respiratory distress CBC/BMP: 10/02/17 1618 10/05/17 0620 Significant Findings Laboratory Tests Test 10/03/17 16:28 10/04/17 07:33 10/05/17 06:20 Prothrombin Time 23.2 SEC (9.8-11.6) 28.4 SEC (9.8-11.6) 28.2 SEC (9.8-11.6) Blood Urea Nitrogen 33 MG/DL (7-18) 34 MG/DL (7-18) 41 MG/DL (7-18) Creatinine 1.50 MG/DL (0.60-1.30) 1.49 MG/DL (0.60-1.30) 1.87 MG/DL (0.60-1.30) Random Glucose 111 MG/DL (74-106) 176 MG/DL (74-106) Calcium Level 8.2 MG/DL (8.5-10.1) 8.2 MG/DL (8.5-10.1) Carbon Dioxide Level 38.9 MEQ/L (21.0-32.0) 38.7 MEQ/L (21.0-32.0) 39.9 MEQ/L (21.0-32.0) Anion Gap 3 MEQ/L (5-15) 2 MEQ/L (5-15) 4 MEQ/L (5-15) Estimat Glomerular Filtration Rate 45 ML/MIN (>89) 45 ML/MIN (>89) 35 ML/MIN (>89) Chloride Level 96 MEQ/L (98-107) PE at Discharge GENERAL: This is a well-nourished, well-developed patient SKIN: No rashes, ecchymoses or lesions. Cool and dry. HEAD: Atraumatic. Normocephalic. No temporal or scalp tenderness. EYES: Pupils equal round and reactive. Extraocular motions intact. No scleral icterus. No injection or drainage. ENT: Nose without bleeding, purulent drainage or septal hematoma. Throat without erythema, tonsillar hypertrophy or exudate. Uvula midline. Airway patent. NECK: Trachea midline. No JVD or lymphadenopathy. Supple, nontender, no meningeal signs. CARDIOVASCULAR: Regular rate and rhythm without murmurs, gallops, or rubs. RESPIRATORY: CTA GASTROINTESTINAL: Abdomen soft, non-tender, nondistended. No hepato-splenomegaly , or palpable masses. No guarding. MUSCULOSKELETAL: Extremities without clubbing, cyanosis, b/l le edema NEUROLOGICAL: Awake and alert. Cranial nerves II through XII intact. Motor and sensory grossly within normal limits. Five out of 5 muscle strength in all muscle groups. Normal speech. Hospital Course Admitted for increased sob, for several days. Found to have sat's in 80'2 does wear home o2 usually on 4liters. CXR on 10/01 shows B/l infiltrates left pleural effusion. He was recently treated for PNA. Does have hx of A fib and S/ HF he has pacemaker aicd and aaliyah coumarin INR on d/c 2.8. During stay pulmonary consulted Dr Galo is his regular pulmonary MD. Patient treated with Atrovent Nebs, he has allergies to Steroids. He was seen by cardiology, Diuresed with good results. Speech therapy evaluated for aspiration Barium swallow done showing No sign of aspiration. Due to aggressive diuresis patient does have some NEREYDA, BMP monitored and will cont on outpatient basis. CXR on day of DC shows some mild-mod CHF, will f/u with cardiology and Pulmonary. He is DC home with [facility]. Pt Condition on Discharge: Stable Discharge Disposition: Disch w/ Home Health Serv Discharge Instructions DIET: Follow Instructions for: Heart Healthy Diet Speech Therapy-Diet Recommenda: Other Activities you can perform: Regular-No Restrictions Follow up Referrals: Cardiology - 1 Week with Sydnee Mills MD PCP Follow-up - 3-[address] Johnson Call office for apt [phone] Pulmonology - 1 Week with Susan Galo MD, Holly ARNP Oct 05, 2017 16:47
[2017-10-06] MEDS ORDERED: WARF-23 PO (08:18)
[2017-10-06] MEDS ORDERED: WARF-18 PO (08:18)
== END 2017-10-05 12:58 | disposition home health service (06) | DRG 193 ==
LOC: NEPE 19:23 → NEDA 21:34 → NEPFCDU 23:38
PROVIDERS: ADMIT Family Medicine; ATTEND Family Medicine
DX: J18.9 Pneumonia, unspecified organism (principal); J96.01 Acute respiratory failure with hypoxia; N17.9 Acute kidney failure, unspecified; I50.23 Acute on chronic systolic (congestive) heart failure; J44.0 Chronic obstructive pulmonary disease with (acute) lower respiratory infection; I42.9 Cardiomyopathy, unspecified; J44.1 Chronic obstructive pulmonary disease with (acute) exacerbation; I11.0 Hypertensive heart disease with heart failure; R10.11 Right upper quadrant pain; Z95.810 Presence of automatic (implantable) cardiac defibrillator; I48.2 Chronic atrial fibrillation; N40.0 Benign prostatic hyperplasia without lower urinary tract symptoms; G47.33 Obstructive sleep apnea (adult) (pediatric); E78.5 Hyperlipidemia, unspecified; Z79.01 Long term (current) use of anticoagulants; E11.9 Type 2 diabetes mellitus without complications; Z79.4 Long term (current) use of insulin; Z99.81 Dependence on supplemental oxygen; H91.90 Unspecified hearing loss, unspecified ear; Z96.653 Presence of artificial knee joint, bilateral; Z87.891 Personal history of nicotine dependence
CPT/HCPCS: 71045; 71046; 74230; 80048; 80053; 80162; 81001; 82948; 83605; 83880; 84484; 85025; 85027; 85610; 87040; 93005; 94640; 94664; J1650; J2543; J3370; J7050

== ENCOUNTER 2017-10-06 06:42 | Inpatient (IN) | payer MEDICARE ==
[~2017-10-06] VITALS: Ht 188 cm; Wt 102.0 kg
[2017-10-06] VITALS (9 sets, daily range): BP systolic 116–144; BP diastolic 56–75; PULSE 69–76; RESP 14–22; TEMP 97.4–98.2; O2SAT 85–97
[~2017-10-06 06:42] MED LIST changes: -CEFU1TAB20 PO; -ENOX100P SQ
--- NOTE | 2017-10-06 07:23 | PD ---
HPI Chief Complaint: Respiratory Symptoms Time Seen by Provider: 07:19 Travel History International Travel<30 days: No Contact w/Intl Traveler<30days: No Traveled to known affect area: No History of Present Illness HPI 81-year-old male patient with history of COPD, recently admitted for pneumonia and released yesterday, follows up with Dr. Galo, here because his oxygenation is low, he is short of breath again. He denies any fevers, coughing, or other symptoms right now. He denies any chest pains. He states that he is not feeling well despite oxygen at home. 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) Endocrine: Yes Gastrointestinal Disorders: Yes GERD: No Glaucoma: No Genitourinary: Yes (BPH) Headaches: Yes (R/T SINUSITIS) Hepatitis: No Hiatal Hernia: Yes Hypertension: Yes Immune Disorder: No Implanted Vascular Access Dvce: Yes Kidney Stones: No Musculoskeletal: Yes Neurologic: Yes Psychiatric: Yes Reproductive: No Respiratory: Yes Integumentary: Yes Immunizations Current: No Migraines: No Radiation Therapy: No Renal Failure: No Seizures: No Sickle Cell Disease: No Sleep Apnea: Yes (CPAP AT NIGHT AT TIMES) Thyroid Disease: No Ulcer: No Tetanus Vaccination: > 5 Years Influenza Vaccination: Yes Past Surgical History Abdominal Surgery: Yes (HERNIA REPAIR) AICD: Yes Appendectomy: Yes Arteriovenous Shunt: No Body Medical Devices: KNEE REPLACEMENT LEFT AND RIGHT, AICD Cardiac Surgery: Yes (PACEMAKER/DEFIB) Cholecystectomy: Yes Ear Surgery: No Endocrine Surgery: No Eye Surgery: Yes Genitourinary Surgery: No Gynecologic Surgery: No Insulin Pump: No Joint Replacement: Yes (BILATERAL TKR) Neurologic Surgery: No Oral Surgery: No Pacemaker: Yes (REPLACED IN NOVEMBER 2016) Thoracic Surgery: No Other Surgery: Yes (pacemaker placement, herniated appendix) Social History Alcohol Use: No Tobacco Use: No Substance Use: No Allergies-Medications (Allergen,Severity, Reaction): Coded Allergies: MRI PRECAUTION (Verified Allergy, Severe, 10/01/17) Uncoded Allergies: STEROIDS (Adverse Reaction, Mild, 01/10/17) ELEVATED BLOOD SUGAR Reported Meds & Prescriptions Reported Meds & Active Scripts Active Ativan (Lorazepam) 2 Mg Tab 2 Mg PO Q6H PRN Tylenol-Codeine #3 (Acetaminophen-Codeine) 300-30 mg Tab 1 Tab PO Q4H PRN DO NOT USE THIS MEDICINE IF YOU WILL DRIVE A CAR OR USE A MACHINE, ONLY USE IT WHEN RESTING AT HOME. Walker/Adult/Folding (Device) 1 Mis Mis Ea .ROUTE DIRECTED Oxygen tank (Oxygen) 1 Ea Tank 2 Liter JAKE.CANULA CONTINUOUS Oxygen Concentrator Portable Gaseous 2 L/min via Nasal Cannula Continuous For 99 months Digoxin 0.125 Mg Tab 0.125 Mg PO DAILY Reported Warfarin 2.5 Mg Tab 2.5 Mg PO TUE,TUE,SAT Warfarin 5 Mg Tab 5 Mg PO TUE,TUE,TUE,SUN Fluticasone Nasal [place] 50 Mcg/Act Naspr 50 Mcg EACH NARE DAILY 50 mcg/spray Acarbose 100 Mg Tab 100 Mg PO TID Take with first bite of meal. Lantus Inj (Insulin Glargine) 1,000 Unit/10 Ml Vial 15 Units SQ HS Duoneb (Ipratropium-Albuterol Neb) 0.5-2.5 Mg/3 Ml Neb 3 Ml NEB TID Senna S (Sennosides-Docusate Sodium) 8.6-50 Mg Tab 1 Tab PO DAILY PRN Vitamin D3 (Cholecalciferol) 5,000 Unit Cap 5,000 Units PO HS Trazodone (Trazodone HCl) 50 Mg Tab 50 Mg PO HS Gabapentin 300 Mg Cap 600 Mg PO BID Vitamin B12 (Cyanocobalamin) 100 Mcg Tab 100 Mcg PO DAILY Omeprazole 40 Mg Cap 40 Mg PO BID Atorvastatin (Atorvastatin Calcium) 40 Mg Tab 40 Mg PO DAILY Torsemide 20 Mg Tab 40 Mg PO BID Lisinopril 20 Mg Tab 20 Mg PO DAILY Bystolic (Nebivolol) 10 Mg Tab 10 Mg PO BID Finasteride 5 Mg Tab 5 Mg PO HS Do not crush. Review of Systems Except as stated in HPI: all other systems reviewed are Neg Physical Exam Narrative GENERAL: Well-developed elderly white male patient currently in mild respiratory distress. Awake and oriented 3. SKIN: Focused skin assessment warm/dry. HEAD: Atraumatic. Normocephalic. EYES: Pupils equal and round. No scleral icterus. No injection or drainage. ENT: No nasal bleeding or discharge. Mucous membranes pink and moist. NECK: Trachea midline. No JVD. CARDIOVASCULAR: Regular rate and rhythm. No murmur appreciated. RESPIRATORY: Mild accessory muscle use. Decreased throughout with crackles in the left base. Breath sounds equal bilaterally. GASTROINTESTINAL: Abdomen soft, non-tender, nondistended. Hepatic and splenic margins not palpable. MUSCULOSKELETAL: No obvious deformities. No clubbing. No cyanosis. No edema. NEUROLOGICAL: Awake and alert. No obvious cranial nerve deficits. Motor grossly within normal limits. Normal speech. PSYCHIATRIC: Appropriate mood and affect; insight and judgment normal. Data Data Last Documented VS Vital Signs Date Time Temp Pulse Resp B/P (MAP) Pulse Ox O2 Delivery O2 Flow Rate FiO2 10/06/17 08:19 70 16 118/56 (76) 85 Nasal Cannula 4.00 10/06/17 06:46 98.2 Orders Orders Complete Blood Count With Diff (10/06/17 07:20) Comprehensive Metabolic Panel (10/06/17 07:20) B-Type Natriuretic Peptide (10/06/17 07:20) Troponin I (10/06/17 07:20) Iv Access Insert/Monitor (10/06/17 07:20) Electrocardiogram (10/06/17 07:20) Ecg Monitoring (10/06/17 07:20) Oximetry (10/06/17 07:20) Oxygen Administration (10/06/17 07:20) Chest, Single Ap (10/06/17 07:20) Sodium Chloride 0.9% Flush (Ns Flush) (10/06/17 07:30) Albuterol-Ipratropium Neb (Duoneb Neb) (10/06/17 07:30) Furosemide Inj (Lasix Inj) (10/06/17 08:15) Admit Order (Ed Use Only) (10/06/17 08:56) Labs Laboratory Tests Test 10/06/17 07:10 White Blood Count 5.3 TH/MM3 Red Blood Count 3.29 MIL/MM3 Hemoglobin 8.3 GM/DL Hematocrit 27.0 % Mean Corpuscular Volume 82.0 FL Mean Corpuscular Hemoglobin 25.1 PG Mean Corpuscular Hemoglobin Concent 30.6 % Red Cell Distribution Width 17.5 % Platelet Count 419 TH/MM3 Mean Platelet Volume 8.2 FL Neutrophils (%) (Auto) 76.9 % Lymphocytes (%) (Auto) 6.9 % Monocytes (%) (Auto) 9.2 % Eosinophils (%) (Auto) 4.5 % Basophils (%) (Auto) 2.5 % Neutrophils # (Auto) 4.1 TH/MM3 Lymphocytes # (Auto) 0.4 TH/MM3 Monocytes # (Auto) 0.5 TH/MM3 Eosinophils # (Auto) 0.2 TH/MM3 Basophils # (Auto) 0.1 TH/MM3 CBC Comment DIFF FINAL Differential Comment Blood Urea Nitrogen 50 MG/DL Creatinine 2.00 MG/DL Random Glucose 171 MG/DL Total Protein 6.4 GM/DL Albumin 2.8 GM/DL Calcium Level 8.4 MG/DL Alkaline Phosphatase 52 U/L Aspartate Amino Transf (AST/SGOT) 21 U/L Alanine Aminotransferase (ALT/SGPT) 22 U/L Total Bilirubin 0.3 MG/DL Sodium Level 140 MEQ/L Potassium Level 4.8 MEQ/L Chloride Level 98 MEQ/L Carbon Dioxide Level 39.0 MEQ/L Anion Gap 3 MEQ/L Estimat Glomerular Filtration Rate 32 ML/MIN Troponin I 0.03 NG/ML B-Type Natriuretic Peptide 650 PG/ML MDM Medical Decision Making Medical Screen Exam Complete: Yes Emergency Medical Condition: Yes Medical Record Reviewed: Yes Interpretation(s) Laboratory Tests Test 10/06/17 07:10 Red Blood Count 3.29 MIL/MM3 (4.50-5.90) Hemoglobin 8.3 GM/DL (13.0-17.0) Hematocrit 27.0 % (39.0-51.0) Mean Corpuscular Hemoglobin 25.1 PG (27.0-34.0) Mean Corpuscular Hemoglobin Concent 30.6 % (32.0-36.0) Red Cell Distribution Width 17.5 % (11.6-17.2) Neutrophils (%) (Auto) 76.9 % (16.0-70.0) Lymphocytes (%) (Auto) 6.9 % (9.0-44.0) Monocytes (%) (Auto) 9.2 % (0.0-8.0) Eosinophils (%) (Auto) 4.5 % (0.0-4.0) Basophils (%) (Auto) 2.5 % (0.0-2.0) Lymphocytes # (Auto) 0.4 TH/MM3 (1.0-4.8) Blood Urea Nitrogen 50 MG/DL (7-18) Creatinine 2.00 MG/DL (0.60-1.30) Random Glucose 171 MG/DL (74-106) Albumin 2.8 GM/DL (3.4-5.0) Calcium Level 8.4 MG/DL (8.5-10.1) Carbon Dioxide Level 39.0 MEQ/L (21.0-32.0) Anion Gap 3 MEQ/L (5-15) Estimat Glomerular Filtration Rate 32 ML/MIN (>89) B-Type Natriuretic Peptide 650 PG/ML (0-100) Last 24 hours Impressions Chest X-Ray 10/06/17 0720 Signed Impressions: Service Date/Time: September 07:27 - CONCLUSION: 1. Cardiomegaly with improved pulmonary edema pattern. Booker Houston MD Differential Diagnosis Worsening pneumonia versus pleural effusion versus COPD exacerbation versus CHF Narrative Course Chest x-ray and BNP still shows that he has some underlying CHF. Patient initially had been given nebulizer without significant improvement. He was given Lasix. Case was discussed with Dr. Galo who states that considering patient's history, he would like the patient to be medically admitted. Patient will need a further long-term plan regarding his breathing difficulties. He states that the diuresing is limited by patient's renal function and his BUN and creatinine is elevated in this case as well. He will need to be slowly diuresed. Case was discussed with PA for Dr. Austin who had admitted the patient to release the patient yesterday, and at this point will re-admit the patient. Diagnosis Primary Impression: CHF (congestive heart failure) Additional Impression: COPD (chronic obstructive pulmonary disease) Admitting Information Admitting Physician Requests: Admit Kayleigh Zarate MD Oct 06, 2017 07:23
[2017-10-06] MEDS ORDERED: RESP: ALBUTEROL 2.5 MG/IPRATROPIUM 0.5 MG NEB (SCH) INH ONE (07:30)
[2017-10-06] MEDS ORDERED: SODIUM CHLORIDE 0.9% FLUSH 10 ML FLUSH IVF PRN (07:30)
[2017-10-06 07:33] LABS: AUTOMATED NEUTROPHIL # 4.1 TH/MM3 (1.8-7.7); BASOPHIL # 0.1 TH/MM3 (0-0.2); BASOPHIL % 2.5 % (0.0-2.0); EOSINOPHIL # 0.2 TH/MM3 (0-0.4); EOSINOPHIL % 4.5 % (0.0-4.0); HEMOGLOBIN 8.3 GM/DL (13.0-17.0); LYMPH % 6.9 % (9.0-44.0); LYMPHOCYTE # 0.4 TH/MM3 (1.0-4.8); MEAN CORPUSCULAR HEMOGLOBIN 25.1 PG (27.0-34.0); MEAN CORPUSCULAR HGB CONC 30.6 % (32.0-36.0); MEAN PLATELET VOLUME 8.2 FL (7.0-11.0); MONO % 9.2 % (0.0-8.0); MONOCYTE # 0.5 TH/MM3 (0-0.9); NEUT % 76.9 % (16.0-70.0); PLATELET COUNT 419 TH/MM3 (150-450); RED BLOOD COUNT 3.29 MIL/MM3 (4.50-5.90); RED CELL DISTRIBUTION WIDTH 17.5 % (11.6-17.2); WHITE BLOOD COUNT 5.3 TH/MM3 (4.0-11.0)
[2017-10-06 07:57] LABS: ALBUMIN 2.8 GM/DL (3.4-5.0); ALT (GPT) 22 U/L (12-78); AST (GOT) 21 U/L (15-37); BLOOD UREA NITROGEN 50 MG/DL (7-18); CALCIUM 8.4 MG/DL (8.5-10.1); CHLORIDE 98 MEQ/L (98-107); GLOMERULAR FILTRATION RATE 32 ML/MIN (>89); GLUCOSE,RANDOM 171 MG/DL (74-106); SODIUM (NA) 140 MEQ/L (136-145)
--- NOTE | 2017-10-06 07:59 | RADRPT ---
EXAM DATE/TIME: 10/06/2017 07:27 [facility] COMPARISON: CHEST PA & LAT, October 05, 2017, 9:25. CHEST SINGLE AP, October 01, 2017, 19:59. INDICATIONS : Shortness of breath. MEDICAL HISTORY : Congestive heart failure. Chronic obstructive pulmonary disease.Hypertension. A-fib. SURGICAL HISTORY : Pacemaker. Appendectomy. Cholecystectomy. Hernia repair. ENCOUNTER: Initial ACUITY: 2 days PAIN SCORE: 0/10 LOCATION: Bilateral chest FINDINGS: Stable multilead pacemaker. Cardiac silhouette is enlarged with indistinct central pulmonary vascular ity. Overall improved interstitial prominence with improved patchy right lower lung zone airspace dis ease. Persistent left lower lung zone pleural parenchymal opacities. Remainder of the exam is unchang ed. CONCLUSION: 1. Cardiomegaly with improved pulmonary edema pattern. Booker Houston MD on October 06, 2017 at 7:53 Board Certified Radiologist. This report was verified electronically.
[2017-10-06 08:00] LABS: ALKALINE PHOSPHATASE 52 U/L (45-117); TOTAL BILIRUBIN ADULT 0.3 MG/DL (0.2-1.0); TOTAL PROTEIN 6.4 GM/DL (6.4-8.2); TROPONIN I 0.03 NG/ML (0.02-0.05)
[2017-10-06] MEDS ORDERED: FUROSEMIDE 20 MG/2 ML VIAL IV PUSH ONE (08:15)
[2017-10-06] MEDS ORDERED: WARF-18 PO (08:18)
[2017-10-06] MEDS ORDERED: WARF-23 PO (08:18)
[2017-10-06] MEDS ORDERED: BISACODYL 10 MG SUPP RECTAL PRN (09:45)
[2017-10-06] MEDS ORDERED: SENNOSIDES 8.6 MG TAB PO PRN (09:45)
[2017-10-06] MEDS ORDERED: LACTULOSE SYRUP 20 GM/30 ML CUP PO PRN (09:45)
[2017-10-06] MEDS ORDERED: MAGNESIUM HYDROXIDE SUSP 30 ML CUP PO PRN (09:45)
[2017-10-06] MEDS ORDERED: ONDANSETRON HCL 4 MG/2 ML VIAL IVP PRN (09:45)
[2017-10-06] MEDS ORDERED: NALOXONE HCL 0.4 MG/ML AMP IV PUSH PRN (09:45)
[2017-10-06] MEDS ORDERED: SODIUM CHLORIDE 0.9% FLUSH 10 ML FLUSH IV FLUSH PRN (09:45)
[2017-10-06] MEDS ORDERED: ACETAMINOPHEN 325 MG TAB PO PRN (09:45)
[2017-10-06 11:32] LABS: INTERNATIONAL NORMALIZED RATIO 2.6 RATIO; PROTHROMBIN TIME - PATIENT 26.4 SEC (9.8-11.6)
[2017-10-06] MEDS ORDERED: ACARBOSE 100 MG PO SCH (13:00)
[2017-10-06] MEDS: RESP: ALBUTEROL 2.5 MG/IPRATROPIUM 0.5 MG NEB (SCH) NEB ×2 (13:00→21:09)
[2017-10-06] MEDS ORDERED: WARFARIN SOD 5 MG TAB PO SCH (16:00)
[2017-10-06] MEDS: DOCUSATE SODIUM 50 MG/SENNA 8.6 MG TAB PO SCH (20:40)
[2017-10-06] MEDS: PANTOPRAZOLE SOD 40 MG DELAYED RELEASE TAB PO SCH (20:40)
[2017-10-06] MEDS: FINASTERIDE 5 MG TAB PO SCH (20:40)
[2017-10-06] MEDS: TORSEMIDE 20 MG TAB PO SCH (20:40)
[2017-10-06] MEDS: INSULIN DETEMIR 100 UNITS/ML VIAL SQ SCH (20:40)
[2017-10-06] MEDS: traZODone HCL 50 MG TAB PO SCH (20:41)
[2017-10-06] MEDS: NEBIVOLOL 10 MG TAB PO SCH (20:41)
[2017-10-06] MEDS: SODIUM CHLORIDE 0.9% FLUSH 10 ML FLUSH IV FLUSH SCH (20:41)
[2017-10-06] MEDS: GABAPENTIN 300 MG CAP PO SCH (20:41)
[2017-10-06] MEDS ORDERED: ACETAMINOPHEN/CODEINE 300 MG/30 MG TAB PO PRN (23:15)
[2017-10-07] VITALS (8 sets, daily range): BP systolic 124–144; BP diastolic 59–77; PULSE 67–76; RESP 16–18; TEMP 97.8–98.2; O2SAT 92–96
[2017-10-07] MEDS: RESP: ALBUTEROL 2.5 MG/IPRATROPIUM 0.5 MG NEB (SCH) NEB ×3 (07:39→19:36)
--- NOTE | 2017-10-07 07:40 | HHI.HP ---
History of Present Illness Service Family Medicine Primary Care Physician Admission Diagnosis CHF exacerbation Diagnoses: (1) CHF (congestive heart failure) Diagnosis: Principal (2) COPD (chronic obstructive pulmonary disease) Diagnosis: Principal (3) A-fib Diagnosis: Secondary (4) Anxiety Diagnosis: Secondary History of Present Illness Presents to ER for increased SOB mostly on exertion. He was recently admitted for PNA, hypoxia, w/ increased SOB. D/C from hospital on 10/05/17 w/ [facility] He is followed by Dr Galo for Pulmonary disease and is on home o2 at 4 liters mostly. Review of Systems Respiratory: COMPLAINS OF: Wheezing, Shortness of breath Cardiovascular: COMPLAINS OF: Dyspnea on Exertion, Lower Extremity Edema Psychiatric: COMPLAINS OF: Anxiety Past Family Social History Allergies: Coded Allergies: MRI PRECAUTION (Verified Allergy, Severe, 10/01/17) Uncoded Allergies: STEROIDS (Adverse Reaction, Mild, 01/10/17) ELEVATED BLOOD SUGAR Past Medical History S/HF A Fib COPD BPH Anxiety Tinnitus Past Surgical History AICD/Pacemaker B/L TKA Hernia Repair Reported Medications Warfarin 2.5 Mg Tab 2.5 Mg PO TUE,TUE,SAT Warfarin 5 Mg Tab 5 Mg PO TUE,TUE,TUE,SUN Fluticasone Nasal [place] 50 Mcg/Act Naspr 50 Mcg EACH NARE DAILY 50 mcg/spray Acarbose 100 Mg Tab 100 Mg PO TID Take with first bite of meal. Lantus Inj (Insulin Glargine) 1,000 Unit/10 Ml Vial 15 Units SQ HS Duoneb (Ipratropium-Albuterol Neb) 0.5-2.5 Mg/3 Ml Neb 3 Ml NEB TID Senna S (Sennosides-Docusate Sodium) 8.6-50 Mg Tab 1 Tab PO DAILY PRN Vitamin D3 (Cholecalciferol) 5,000 Unit Cap 5,000 Units PO HS Trazodone (Trazodone HCl) 50 Mg Tab 50 Mg PO HS Gabapentin 300 Mg Cap 600 Mg PO BID Vitamin B12 (Cyanocobalamin) 100 Mcg Tab 100 Mcg PO DAILY Omeprazole 40 Mg Cap 40 Mg PO BID Atorvastatin (Atorvastatin Calcium) 40 Mg Tab 40 Mg PO DAILY Torsemide 20 Mg Tab 40 Mg PO BID Lisinopril 20 Mg Tab 20 Mg PO DAILY Bystolic (Nebivolol) 10 Mg Tab 10 Mg PO BID Finasteride 5 Mg Tab 5 Mg PO HS Active Ordered Medications Current Medications Medications (Trade) Dose Ordered Sig/Faviola Route Start Time Stop Time Status Last Admin (NS Flush) 2 ml UNSCH PRN IV FLUSH 10/06/17 09:45 (NS Flush) 2 ml BID IV FLUSH 10/06/17 21:00 10/06/17 20:41 (Tylenol) 650 mg Q4H PRN PO 10/06/17 09:45 (Zofran Inj) 4 mg Q6H PRN IVP 10/06/17 09:45 (Narcan Inj) 0.4 mg UNSCH PRN IV PUSH 10/06/17 09:45 (Helene-Colace) 1 tab BID PO 10/06/17 21:00 10/06/17 20:40 (Milk Of Magnesia Liq) 30 ml Q12H PRN PO 10/06/17 09:45 (Senokot) 17.2 mg Q12H PRN PO 10/06/17 09:45 (Dulcolax Supp) 10 mg DAILY PRN RECTAL 10/06/17 09:45 (Lactulose Liq) 30 ml DAILY PRN PO 10/06/17 09:45 (Lipitor) 40 mg DAILY PO 10/07/17 09:00 (Lanoxin) 0.125 mg DAILY PO 10/07/17 09:00 (Proscar) 5 mg HS PO 10/06/17 21:00 10/06/17 20:40 (Flonase Osvaldo Spr) 1 spray DAILY EACH NARE 10/07/17 09:00 (Neurontin) 600 mg BID PO 10/06/17 21:00 10/06/17 20:41 (Levemir Inj) 15 units HS SQ 10/06/17 21:00 10/06/17 20:40 (Duoneb Neb) 1 ampule TID NEB NEB 10/06/17 13:00 10/06/17 21:09 (Prinivil) 20 mg DAILY PO 10/07/17 09:00 (Bystolic) 10 mg BID PO 10/06/17 21:00 (Demadex) 40 mg BID PO 10/06/17 21:00 10/06/17 20:40 (Desyrel) 50 mg HS PO 10/06/17 21:00 10/06/17 20:41 Patient Own Medication 100 ea TID PO 10/06/17 13:00 Future Hold (Protonix) 40 mg BID PO 10/06/17 21:00 10/06/17 20:40 (Coumadin) 5 mg DAILY@1600 PO 10/06/17 16:00 10/06/17 16:22 (Tylenol-Codeine #3) 1 tab Q4H PRN PO 10/06/17 23:15 Social History Alcohol Use: No Tobacco Use: No Substance Use: No Physical Exam Vital Signs Vital Signs Date Time Temp Pulse Resp B/P (MAP) Pulse Ox O2 Delivery O2 Flow Rate FiO2 10/07/17 04:00 69 10/07/17 04:00 Nasal Cannula 3.00 10/07/17 04:00 98.1 70 18 138/63 (88) 94 10/07/17 00:00 73 10/07/17 00:00 97.9 70 18 144/77 (99) 95 10/06/17 21:09 91 Nasal Cannula 4.00 10/06/17 20:00 98.0 76 18 144/75 (98) 92 10/06/17 20:00 69 10/06/17 17:00 73 10/06/17 16:22 97.4 69 18 124/61 (82) 97 10/06/17 12:49 98.2 71 20 120/57 (78) 95 10/06/17 12:10 10/06/17 11:25 73 14 119/74 (89) 95 Nasal Cannula 4.00 10/06/17 08:19 70 16 118/56 (76) 85 Nasal Cannula 4.00 10/06/17 08:09 89 Nasal Cannula 4.00 10/06/17 07:51 91 Nasal Cannula 4.00 Physical Exam GENERAL: This is a well-nourished, well-developed patient, in no apparent distress. SKIN: No rashes, ecchymoses or lesions. Cool and dry. HEAD: Atraumatic. Normocephalic. No temporal or scalp tenderness. EYES: Pupils equal round and reactive. Extraocular motions intact. No scleral icterus. No injection or drainage. ENT: Nose without bleeding, purulent drainage or septal hematoma. Throat without erythema, tonsillar hypertrophy or exudate. Uvula midline. Airway patent. NECK: Trachea midline. No JVD or lymphadenopathy. Supple, nontender, no meningeal signs. CARDIOVASCULAR: Regular rate and rhythm without murmurs, gallops, or rubs. RESPIRATORY: Clear to auscultation. Breath sounds equal bilaterally. No wheezes , rales, or rhonchi. GASTROINTESTINAL: Abdomen soft, non-tender, nondistended. No hepato-splenomegaly , or palpable masses. No guarding. MUSCULOSKELETAL: Extremities without clubbing, cyanosis, or edema. No joint tenderness, effusion, or edema noted. No calf tenderness. Negative Homans sign bilaterally. NEUROLOGICAL: Awake and alert. Cranial nerves II through XII intact. Motor and sensory grossly within normal limits. Five out of 5 muscle strength in all muscle groups. Normal speech. Laboratory Laboratory Tests Test 10/06/17 10:50 Prothrombin Time 26.4 Prothromb Time International Ratio 2.6 Result Diagram: 10/06/17 0710 10/06/17 0710 Imaging Last 48 hours Impressions Chest X-Ray 10/06/17 0720 Signed Impressions: Service Date/Time: September 07:27 - CONCLUSION: 1. Cardiomegaly with improved pulmonary edema pattern. Booker Houston MD Course Laboratory Tests Test 10/06/17 07:10 10/06/17 10:50 Red Blood Count 3.29 MIL/MM3 (4.50-5.90) Hemoglobin 8.3 GM/DL (13.0-17.0) Hematocrit 27.0 % (39.0-51.0) Mean Corpuscular Hemoglobin 25.1 PG (27.0-34.0) Mean Corpuscular Hemoglobin Concent 30.6 % (32.0-36.0) Red Cell Distribution Width 17.5 % (11.6-17.2) Neutrophils (%) (Auto) 76.9 % (16.0-70.0) Lymphocytes (%) (Auto) 6.9 % (9.0-44.0) Monocytes (%) (Auto) 9.2 % (0.0-8.0) Eosinophils (%) (Auto) 4.5 % (0.0-4.0) Basophils (%) (Auto) 2.5 % (0.0-2.0) Lymphocytes # (Auto) 0.4 TH/MM3 (1.0-4.8) Blood Urea Nitrogen 50 MG/DL (7-18) Creatinine 2.00 MG/DL (0.60-1.30) Random Glucose 171 MG/DL (74-106) Albumin 2.8 GM/DL (3.4-5.0) Calcium Level 8.4 MG/DL (8.5-10.1) Carbon Dioxide Level 39.0 MEQ/L (21.0-32.0) Anion Gap 3 MEQ/L (5-15) Estimat Glomerular Filtration Rate 32 ML/MIN (>89) B-Type Natriuretic Peptide 650 PG/ML (0-100) Prothrombin Time 26.4 SEC (9.8-11.6) Caprini VTE Risk Assessment Caprini VTE Risk Assessment: Mod/High Risk (score >= 2) Caprini Risk Assessment Model Point Value = 1 Point Value = 2 Point Value = 3 Point Value = 5 Age 41-60 Minor surgery BMI > 25 kg/m2 Swollen legs Varicose veins or History of unexplained or recurrent spontaneous Oral contraceptives or hormone replacement Sepsis (< 1 month) Serious lung disease, including pneumonia (< 1 month) Abnormal pulmonary function Acute myocardial infarction Congestive heart failure (< 1 month) History of inflammatory bowel disease Medical patient at bed rest Age 61-74 Arthroscopic surgery Major open surgery (> 45 min) Laparoscopic surgery (> 45 min) Malignancy Confined to bed (> 72 hours) Immobilizing plaster cast Central venous access Age >= 75 History of VTE Family history of VTE Factor V Leiden Prothrombin [id number] Lupus anticoagulant Anticardiolipin antibodies Elevated serum homocysteine Heparin-induced thrombocytopenia Other congenital or acquired thrombophilia Stroke (< 1 month) Elective arthroplasty Hip, pelvis, or leg fracture Acute spinal cord injury (< 1 month) Prophylaxis Regimen Total Risk Factor Score Risk Level Prophylaxis Regimen 0-1 Low Early ambulation 2 Moderate Order ONE of the following: *Sequential Compression Device (SCD) *Heparin 5000 units SQ BID 3-4 Higher Order ONE of the following medications: *Heparin 5000 units SQ TID *Enoxaparin/Lovenox 40 mg SQ daily (WT < 150 kg, CrCl > 30 mL/min) *Enoxaparin/Lovenox 30 mg SQ daily (WT < 150 kg, CrCl > 10-29 mL/min) *Enoxaparin/Lovenox 30 mg SQ BID (WT < 150 kg, CrCl > 30 mL/min) AND/OR *Sequential Compression Device (SCD) 5 or more Highest Order ONE of the following medications: *Heparin 5000 units SQ TID (Preferred with Epidurals) *Enoxaparin/Lovenox 40 mg SQ daily (WT < 150 kg, CrCl > 30 mL/min) *Enoxaparin/Lovenox 30 mg SQ daily (WT < 150 kg, CrCl > 10-29 mL/min) *Enoxaparin/Lovenox 30 mg SQ BID (WT < 150 kg, CrCl > 30 mL/min) AND *Sequential Compression Device (SCD) Assessment and Plan Problem List: (1) CHF (congestive heart failure) ICD Codes: I50.9 - Heart failure, unspecified Plan: Cont diureses, Cardiac Meds, keep sats .92 (2) COPD (chronic obstructive pulmonary disease) ICD Codes: J44.9 - Chronic obstructive pulmonary disease Status: Chronic Plan: Pulmonary consult, bronchodilators, Maintain sats .92 (3) A-fib ICD Codes: I48.91 - Unspecified atrial fibrillation Plan: Chronic, rate controlled on Coumadin Monitor INR (4) Anxiety ICD Codes: F41.1 - Anxiety Status: Chronic Plan: Cont home medication Assessment and Plan Patient will need snf placement on DC. Recently refused during last admit to go to rehab, but has agreed now as he know he will need closer monitoring than what [facility] can provide. CM consult. Problem Qualifiers (1) CHF (congestive heart failure): (2) COPD (chronic obstructive pulmonary disease): Qualified Codes: J44.0 - Chronic obstructive pulmonary disease with acute lower respiratory infection (3) A-fib: Qualified Codes: I48.1 - Persistent atrial fibrillation Guadalupe Orta Oct 07, 2017 07:40
[2017-10-07 08:28] LABS: ALBUMIN 2.8 GM/DL (3.4-5.0); AST (GOT) 13 U/L (15-37); BICARBONATE 42.3 MEQ/L (21.0-32.0); BLOOD UREA NITROGEN 53 MG/DL (7-18); CALCIUM 8.8 MG/DL (8.5-10.1); CHLORIDE 97 MEQ/L (98-107); CREATININE 1.77 MG/DL (0.60-1.30); GLOMERULAR FILTRATION RATE 37 ML/MIN (>89); GLUCOSE,RANDOM 160 MG/DL (74-106); SODIUM (NA) 140 MEQ/L (136-145)
[2017-10-07 08:32] LABS: ALKALINE PHOSPHATASE 50 U/L (45-117); ALT (GPT) 20 U/L (12-78); TOTAL BILIRUBIN ADULT 0.4 MG/DL (0.2-1.0); TOTAL PROTEIN 6.3 GM/DL (6.4-8.2)
[2017-10-07] MEDS: FLUTICASONE PROPIONATE 50 MCG/ACT 16 GM NASAL SPRAY EACH NARE SCH (09:00)
[2017-10-07] MEDS: TORSEMIDE 20 MG TAB PO SCH ×2 (09:21→20:07)
[2017-10-07] MEDS: ATORVASTATIN 40 MG TAB PO SCH (09:21)
[2017-10-07] MEDS: DIGOXIN 0.125 MG TAB PO SCH (09:22)
[2017-10-07] MEDS: NEBIVOLOL 10 MG TAB PO SCH ×2 (09:23→20:07)
[2017-10-07] MEDS: GABAPENTIN 300 MG CAP PO SCH ×2 (09:24→20:07)
[2017-10-07] MEDS: PANTOPRAZOLE SOD 40 MG DELAYED RELEASE TAB PO SCH ×2 (09:24→20:06)
[2017-10-07] MEDS: DOCUSATE SODIUM 50 MG/SENNA 8.6 MG TAB PO SCH ×2 (09:24→20:07)
[2017-10-07] MEDS: LISINOPRIL 20 MG TAB PO SCH (09:28)
[2017-10-07] MEDS: SODIUM CHLORIDE 0.9% FLUSH 10 ML FLUSH IV FLUSH SCH ×2 (09:29→20:07)
[2017-10-07 13:54] LABS: PROTHROMBIN TIME - PATIENT 30.3 SEC (9.8-11.6)
--- NOTE | 2017-10-07 15:13 | PD.CONS ---
Consult Service Palliative Care Consult Requested By Dr. Mel Galo Primary Care Physician Unknown Reason for Consultation a. To assist with evaluation and management of symptoms including:dyspnea b. To assist medical decision maker(s) with: better understanding of current medical conditions; weighing benefits/burdens of medical treatment options; making medical treatment decisions. HPI History of Present Illness Patient is an 81-year-old with a past medical history significant for but not limited to: A. fib, hypertension, sleep apnea, prostate, O2 dependent COPD, cardiomyopathy, CKD and diabetes. Patient has been hospitalized multiple times in September. He had come in to the hospital on September 22 for GI bleed and anemia. Patient was discharged. He returned October 01, 2017 with dyspnea. He was found to have bilateral infiltrates left pleural effusion. Patient treated with Atrovent, steroids. Cardiology also evaluated patient in patient underwent diuresis. Patient was subsequently discharged home with home health care, he has declined placement on 10/05/2017. Patient returns to the hospital October 06, 2017. In the ER: * Temperature is 98.2, pulse is 71, respirations 22, blood pressure is 116/56, pulse ox is 89% on room air * WBCs 5.3, hemoglobin is 8.3, hematocrit 27.0, platelet is 419 * Sodium is 140, potassium 4.8, chloride 98, bicarb is 39.0, BUN is 50, creatinine is 2.0 * BNP is 650, troponin I 0.03 * Albumin is two-point * PT is 26.4, INR is 3.6 * Chest x-ray shows cardiomegaly with improved pulmonary edema pattern. Patient transferred to family medicine services. Pulmonology was consulted. Palliative care was consulted to review goals of care. On my visit pt is alert, not confused followed commands. Pt's spouse, and neighbor is at bedside. Patient say he feels much better, some pain on inspiration, but not dyspneic. I had prolong discussion about COPD, the cause of it, the effects. Talk about his condition, his hospitalizations, and his prognosis. I did say with his underlying copd, with renal insufficiency and cardiac hx he is end stage. Discuss about code status, life support, cpr, alcs. Discussed with him how these medical intervention will not fix his underlying illness and prognosis is poor. He allow me to make the recomendation of DNR/ DNI. Patient and stated: They want to go home, with hospice; not the care center. is amenable to DNR, is leaning towards DNR/ DNI and but wants to think about it, and talk with . Community DNR left at bedside. They do not want to meet with Hospice today, but tomorrow 10/08/2017, wishes to be there. If after meeting with hospice they decided to enroll, they are amenable to the following recommendations. continue duonebs, okay with stopping inhalers, replace with duonebs at home. start chronic steroids, such as prednisone 10 mg po daily, given diabetes and steroids usage, they are amenable to sliding scale with accuchecks. Steroid is not an actual allergy, more related to blood sugars. No morphine due to renal insufficiecy, but amenable to either tylenol #3 or [place] prn for dyspnea or pain. Function/Cognitive Trajectory 3 hospitalizations in the month of September.. Patient is O2 dependent Review of Systems ROS Limitations: Clinical Condition Constitutional: COMPLAINS OF: Fatigue Respiratory: COMPLAINS OF: Shortness of breath Cardiovascular: COMPLAINS OF: Palpitations, Lower Extremity Edema Psychiatric: COMPLAINS OF: Anxiety Past Family Social History Coded Allergies: MRI PRECAUTION (Verified Allergy, Severe, 10/01/17) Uncoded Allergies: STEROIDS (Adverse Reaction, Mild, 01/10/17) ELEVATED BLOOD SUGAR Past Medical History A. fib, hypertension, sleep apnea, prostate, O2 dependent COPD, cardiomyopathy, CKD and diabetes Past Surgical History AICD/Pacemaker B/L TKA Hernia Repair Reported Medications Warfarin 2.5 Mg Tab 2.5 Mg PO TUE,TUE,TUE Warfarin 5 Mg Tab 5 Mg PO TUE,TUE,TUE,SUN Fluticasone Nasal [place] 50 Mcg/Act Naspr 50 Mcg EACH NARE DAILY 50 mcg/spray Acarbose 100 Mg Tab 100 Mg PO TID Take with first bite of meal. Lantus Inj (Insulin Glargine) 1,000 Unit/10 Ml Vial 15 Units SQ HS Duoneb (Ipratropium-Albuterol Neb) 0.5-2.5 Mg/3 Ml Neb 3 Ml NEB TID Senna S (Sennosides-Docusate Sodium) 8.6-50 Mg Tab 1 Tab PO DAILY PRN Vitamin D3 (Cholecalciferol) 5,000 Unit Cap 5,000 Units PO HS Trazodone (Trazodone HCl) 50 Mg Tab 50 Mg PO HS Gabapentin 300 Mg Cap 600 Mg PO BID Vitamin B12 (Cyanocobalamin) 100 Mcg Tab 100 Mcg PO DAILY Omeprazole 40 Mg Cap 40 Mg PO BID Atorvastatin (Atorvastatin Calcium) 40 Mg Tab 40 Mg PO DAILY Torsemide 20 Mg Tab 40 Mg PO BID Lisinopril 20 Mg Tab 20 Mg PO DAILY Bystolic (Nebivolol) 10 Mg Tab 10 Mg PO BID Finasteride 5 Mg Tab 5 Mg PO HS Current Medications Medications (Trade) Dose Ordered Sig/Faviola Route Start Time Stop Time Status Last Admin (NS Flush) 2 ml UNSCH PRN IV FLUSH 10/06/17 09:45 (NS Flush) 2 ml BID IV FLUSH 10/06/17 21:00 10/07/17 09:29 (Tylenol) 650 mg Q4H PRN PO 10/06/17 09:45 (Zofran Inj) 4 mg Q6H PRN IVP 10/06/17 09:45 (Narcan Inj) 0.4 mg UNSCH PRN IV PUSH 10/06/17 09:45 (Helene-Colace) 1 tab BID PO 10/06/17 21:00 10/07/17 09:24 (Milk Of Magnesia Liq) 30 ml Q12H PRN PO 10/06/17 09:45 (Senokot) 17.2 mg Q12H PRN PO 10/06/17 09:45 (Dulcolax Supp) 10 mg DAILY PRN RECTAL 10/06/17 09:45 (Lactulose Liq) 30 ml DAILY PRN PO 10/06/17 09:45 (Lipitor) 40 mg DAILY PO 10/07/17 09:00 10/07/17 09:21 (Lanoxin) 0.125 mg DAILY PO 10/07/17 09:00 10/07/17 09:22 (Proscar) 5 mg HS PO 10/06/17 21:00 10/06/17 20:40 (Flonase Osvaldo Spr) 1 spray DAILY EACH NARE 10/07/17 09:00 (Neurontin) 600 mg BID PO 10/06/17 21:00 10/07/17 09:24 (Levemir Inj) 15 units HS SQ 10/06/17 21:00 10/06/17 20:40 (Duoneb Neb) 1 ampule TID NEB NEB 10/06/17 13:00 10/07/17 11:49 (Prinivil) 20 mg DAILY PO 10/07/17 09:00 10/07/17 09:28 (Bystolic) 10 mg BID PO 10/06/17 21:00 10/07/17 09:23 (Demadex) 40 mg BID PO 10/06/17 21:00 10/07/17 09:21 (Desyrel) 50 mg HS PO 10/06/17 21:00 10/06/17 20:41 Patient Own Medication 100 ea TID PO 10/06/17 13:00 Future Hold (Protonix) 40 mg BID PO 10/06/17 21:00 10/07/17 09:24 (Tylenol-Codeine #3) 1 tab Q4H PRN PO 10/06/17 23:15 10/07/17 09:23 (Coumadin) 5 mg MoWeFr@16 PO 10/07/17 16:00 (Coumadin) 2.5 mg SuTuThSa@16 PO 10/08/17 16:00 Family History Father and mother pass away from old age, he is unsure of cause. Substance Use Tobacco: History of smoking quit 5 years ago Alcohol: None Prescription med abuse: None Illicits: None Psychosocial History Patient is living with his . Living Will: Never completed Health Care Surrogate: Never completed Physical Exam Vital Signs Date Time Temp Pulse Resp B/P (MAP) Pulse Ox O2 Delivery O2 Flow Rate FiO2 10/07/17 12:00 71 10/07/17 12:00 97.8 72 18 140/65 (90) 92 10/07/17 08:00 98.2 72 16 138/63 (88) 92 10/07/17 08:00 76 10/07/17 07:53 Nasal Cannula 4.00 10/07/17 07:40 93 Nasal Cannula 4.00 10/07/17 04:00 69 10/07/17 04:00 Nasal Cannula 3.00 10/07/17 04:00 98.1 70 18 138/63 (88) 94 10/07/17 00:00 73 10/07/17 00:00 97.9 70 18 144/77 (99) 95 10/06/17 21:09 91 Nasal Cannula 4.00 10/06/17 20:00 98.0 76 18 144/75 (98) 92 10/06/17 20:00 69 10/06/17 17:00 73 10/06/17 16:22 97.4 69 18 124/61 (82) 97 Exam CONSTITUTIONAL/GENERAL: This is an adequately nourished patient, elderly gentlemen. Currently not in distress. TUBES/LINES/DRAINS: SKIN: No jaundice, rashes, or lesions. Ecchymoses on upper extremities. No wounds seen anteriorly. Skin temperature appropriate. Not diaphoretic. HEAD: Atraumatic. Normocephalic. EYES: Pupils equal and round and reactive. Extraocular motions intact. No scleral icterus. No injection or drainage. Fundi not examined. ENT: Hearing grossly normal. Nose without bleeding or purulent drainage. Throat without visible erythema, exudates, masses, or lesions. NECK: Trachea midline. Supple, nontender. No palpable thyroid enlargement or nodularity. CARDIOVASCULAR: Irregular and rhythm without murmurs, gallops, or rubs. No JVD. Peripheral pulses symmetric. RESPIRATORY/CHEST: Symmetric, unlabored respirations. No accessory muscle use, but decrease breath sounds GASTROINTESTINAL: Abdomen soft, non-tender, nondistended. No hepato-splenomegaly , or palpable masses. No guarding. Bowel sounds present. GENITOURINARY: Without palpable bladder distension. Cortes catheter in place. MUSCULOSKELETAL: Extremities without clubbing, cyanosis, or edema. No joint tenderness or effusion noted. No calf tenderness. No mottling or clubbing. LYMPHATICS: No palpable cervical or supraclavicular adenopathy. NEUROLOGICAL: Awake and alert. Motor and sensory grossly within normal limits. Follows commands. Cognitively sharp. Moves all extremities. PSYCHIATRIC: No obvious anxiety/depression. no apparent hallucinations or other psychotic thought process. Diagnostic Tests Laboratory Laboratory Tests Test 10/06/17 07:10 10/06/17 10:50 10/07/17 07:30 10/07/17 12:54 White Blood Count 5.3 TH/MM3 (4.0-11.0) Red Blood Count 3.29 MIL/MM3 (4.50-5.90) Hemoglobin 8.3 GM/DL (13.0-17.0) Hematocrit 27.0 % (39.0-51.0) Mean Corpuscular Volume 82.0 FL (80.0-100.0) Mean Corpuscular Hemoglobin 25.1 PG (27.0-34.0) Mean Corpuscular Hemoglobin Concent 30.6 % (32.0-36.0) Red Cell Distribution Width 17.5 % (11.6-17.2) Platelet Count 419 TH/MM3 (150-450) Mean Platelet Volume 8.2 FL (7.0-11.0) Neutrophils (%) (Auto) 76.9 % (16.0-70.0) Lymphocytes (%) (Auto) 6.9 % (9.0-44.0) Monocytes (%) (Auto) 9.2 % (0.0-8.0) Eosinophils (%) (Auto) 4.5 % (0.0-4.0) Basophils (%) (Auto) 2.5 % (0.0-2.0) Neutrophils # (Auto) 4.1 TH/MM3 (1.8-7.7) Lymphocytes # (Auto) 0.4 TH/MM3 (1.0-4.8) Monocytes # (Auto) 0.5 TH/MM3 (0-0.9) Eosinophils # (Auto) 0.2 TH/MM3 (0-0.4) Basophils # (Auto) 0.1 TH/MM3 (0-0.2) CBC Comment DIFF FINAL Differential Comment Blood Urea Nitrogen 50 MG/DL (7-18) 53 MG/DL (7-18) Creatinine 2.00 MG/DL (0.60-1.30) 1.77 MG/DL (0.60-1.30) Random Glucose 171 MG/DL (74-106) 160 MG/DL (74-106) Total Protein 6.4 GM/DL (6.4-8.2) 6.3 GM/DL (6.4-8.2) Albumin 2.8 GM/DL (3.4-5.0) 2.8 GM/DL (3.4-5.0) Calcium Level 8.4 MG/DL (8.5-10.1) 8.8 MG/DL (8.5-10.1) Alkaline Phosphatase 52 U/L (45-117) 50 U/L (45-117) Aspartate Amino Transf (AST/SGOT) 21 U/L (15-37) 13 U/L (15-37) Alanine Aminotransferase (ALT/SGPT) 22 U/L (12-78) 20 U/L (12-78) Total Bilirubin 0.3 MG/DL (0.2-1.0) 0.4 MG/DL (0.2-1.0) Sodium Level 140 MEQ/L (136-145) 140 MEQ/L (136-145) Potassium Level 4.8 MEQ/L (3.5-5.1) 4.3 MEQ/L (3.5-5.1) Chloride Level 98 MEQ/L (98-107) 97 MEQ/L (98-107) Carbon Dioxide Level 39.0 MEQ/L (21.0-32.0) 42.3 MEQ/L (21.0-32.0) Anion Gap 3 MEQ/L (5-15) 1 MEQ/L (5-15) Estimat Glomerular Filtration Rate 32 ML/MIN (>89) 37 ML/MIN (>89) Troponin I 0.03 NG/ML (0.02-0.05) B-Type Natriuretic Peptide 650 PG/ML (0-100) Prothrombin Time 26.4 SEC (9.8-11.6) 30.3 SEC (9.8-11.6) Prothromb Time International Ratio 2.6 RATIO 3.0 RATIO Result Diagram: 10/06/17 0710 10/07/17 0730 Imaging Last Impressions Chest X-Ray 10/06/17 0720 Signed Impressions: Service Date/Time: September 07:27 - CONCLUSION: 1. Cardiomegaly with improved pulmonary edema pattern. Booker Houston MD Patient/Family Conference Present at Family Conference: Patient. Patient's , Patient's . Family Conference Time (mins): 45 Family Conference Location: Bedside Issues Discussed: * Palliative care role, purpose, approach * Additional medical, psychosocial, and spiritual history * Patients general health, functional status, and cognitive changes in the months leading up to the current hospitalization * Patient/family understanding of the current medical problems * Patient/family understanding of prognosis * Patients goals of care as best understood from advance directives and/or conversations and/or values * Current medical treatment options and benefits/burdens of those options * Likely scenarios comparing ongoing aggressive care with a transition to comfort measures only * Questions answered to the best of my ability * Palliative care contact information provided Assessment and Plan Disease Oriented Problem List: (1) COPD (chronic obstructive pulmonary disease) (2) CHF (congestive heart failure) (3) Atrial fibrillation (4) Diastolic CHF, acute on chronic (5) Anxiety (6) A-fib (7) DM type 2 causing CKD stage 3 (8) Renal insufficiency Symptom Scale: (1) Dyspnea 0-10 Scale: 1 Pertinent Non-Medical Issues Psychosocial: Spiritual: Legal: Ethical issues impacting care: Important Contacts Melania Sanon, lesley [phone] or [phone] Kenia Rosas [phone] neighbor friend. Prognosis Given pt copd, cardiac condition and renal insufficiency, I agree with transmitter engineer in charge, and would be a candidate for hospice if goals are comfort oriented. Code Status: Full Code Plan == Code: Full Code for now. Patient is considering DNR. Community DNR left at bedside (please see below). == Health Care Proxy: . Melania Sanon. == Symptom: Dyspnea- currently well controlled. no new med rec. ==Goals: I had prolong discussion about COPD, the cause of it, the effects. Talk about his condition, his hospitalizations, and his prognosis. I did say with his underlying copd, with renal insufficiency and cardiac hx he is end stage. Discuss about code status, life support, cpr, alcs. Discussed with him how these medical intervention will not fix his underlying illness and prognosis is poor. He allow me to make the recomendation of DNR/ DNI. goals are the following: They want to go home, with hospice; not the care center. I will place hospice consult. is amenable to DNR, is leaning towards DNR/ DNI and but wants to think about it, and talk with . Community DNR left at bedside. They do not want to meet with Hospice today, but tomorrow 10/08/2017, wishes to be there. If after meeting with hospice they decided to enroll, they are amenable to the following recommendations. continue duonebs, okay with stopping inhalers, replace with duonebs at home. start chronic steroids, such as prednisone 10 mg po daily, given diabetes and steroids usage, they are amenable to sliding scale with accuchecks. Steroid is not an actual allergy, more related to blood sugars. No morphine due to renal insufficiecy, but amenable to either tylenol #3 or [place] prn for dyspnea or pain. == Palliative Care will continue to follow to review goals of care and make recommendations for symptom managment as clinical condition evolves. Thank you for the opportunity to participate in the care of Mr. Sanon. Attestation To help prompt me to consider important information that might be impacting today's encounter and assessment, information from prior notes written by myself or my colleagues may have been "brought forward" into today's note. My signature on this note, however, is an attestation that I personally performed the exam, history, and/or decision-making noted today, and, unless otherwise indicated, the interactions with patient, family, and staff as well as the review of records all occurred today. I also attest that the listed assessment and stated plan reflect my best clinical judgment today based on the combination of historical information, prior notes, and today's exam/ interactions. When time spent is documented, it refers only to time spent today by the signer, or if indicated, combined time spent today by collaborating physician/nurse practitioner. Amador Jiang MD Oct 07, 2017 15:13
[2017-10-07] MEDS ORDERED: WARFARIN SOD 5 MG TAB PO SCH (16:00)
--- NOTE | 2017-10-07 16:09 | MB ---
cc: KERRI MCCLURE M.D., KIM A. M.D. WHITE, R. STEVEN DATE OF CONSULTATION: 10/07/2017 REASON FOR CONSULTATION: Pulmonary consultation. HISTORY OF PRESENT ILLNESS: Mr. Sanon is an 81 year old male well known to me with oxygen dependant COPD and chronic cardiomyopathy. He also has significant pulmonary hypertension related to his underlying heart and lung disease. He is diabetic, has significant chronic venous insufficiency with edema in both legs and has been hospitalized now three times within the last month. He has become very debilitated essentially bed-bound at present. Minimal exertion causes shortness of breath. PAST MEDICAL HISTORY: For review of prior history additional details please refer to my previous consultations. He came back this time and less than 24 hours complaining of weakness and shortness of breath. No chest pain. No change in edema, although it is significant. Chest x-ray actually looked a little better. He was significantly diuresed during the last admission but that did result in worsening renal failure BUN vera to 50 with a creatinine of 2. BNP on this admission was 650. He is adequately anticoagulated on warfarin INR 2.6. No evidence of ongoing infection. White count is normal and he has remained afebrile. PHYSICAL EXAMINATION VITAL SIGNS: 97, 140/60, pulse is 70, respirations 18, O2 sat 92-94% on 4 liters. NECK: Neck veins are not distended. HEART: Diminished throughout minimal basilar rales without congestion. Soft systolic murmur. No audible S3, chronic [id number] plus edema in both legs. No cyanosis. DISCUSSION Nathan is back in with recurrent respiratory insufficiency. He has significant chronic pulmonary disease and cardiac disease which has been very debilitating. He has had progressive increase in edema and despite aggressive diuretics that really has not improved and in fact it is compromising his renal function at this point. I have had a dom discussion with he and his yesterday and today. I do not see any options for improvement and I would be hesitant to push his diuretics any further because of the compromise in renal function. He certainly can go home and this condition. He has been in-and-out three times now. He will have to go back to rehab at a [facility] facility. He refuses to consider that. He would like to go home. The only reasonable option for him to be at home would be on Hospice where he can get the support that is necessary and he and his after our discussion are agreeable to talking to the palliative care team about making those arrangements and what services they could provide. Will continue his extensive regimen of medications at this point including his diuretics. His creatinine has improved a bit over the last 24 hours. Once home arrangements have been made he could be discharged and continued on the current therapy. R. MD BARAK Jorge/gabi /1:46 PM /3:52 PM
[2017-10-07] MEDS: traZODone HCL 50 MG TAB PO SCH (20:07)
[2017-10-07] MEDS: FINASTERIDE 5 MG TAB PO SCH (20:07)
[2017-10-07] MEDS: INSULIN DETEMIR 100 UNITS/ML VIAL SQ SCH (20:08)
[2017-10-08] VITALS (7 sets, daily range): BP systolic 115–133; BP diastolic 57–66; PULSE 69–73; RESP 16–18; TEMP 97.9–99.4; O2SAT 90–94
--- NOTE | 2017-10-08 01:55 | EKG ---
Date Performed: 10/06/2017 Time Performed: 07:42:25 PTAGE: 81 years EKG: ELECTRONIC VENTRICULAR PACEMAKER MARKED ST ELEVATION, CONSIDER LATERAL INJURY MARKED ST DEP RESSION, CONSIDER SUBENDOCARDIAL INJURY ACUTE PA PREVIOUS TRACING : 10/01/2017 20.38 DOCTOR: Madeline Monroy Interpretating Date/Time 10/08/2017 01:54:10
[2017-10-08] MEDS: RESP: ALBUTEROL 2.5 MG/IPRATROPIUM 0.5 MG NEB (SCH) NEB ×2 (07:34→12:16)
[2017-10-08] MEDS: DOCUSATE SODIUM 50 MG/SENNA 8.6 MG TAB PO SCH (08:28)
[2017-10-08] MEDS: NEBIVOLOL 10 MG TAB PO SCH (08:31)
[2017-10-08] MEDS: GABAPENTIN 300 MG CAP PO SCH (08:31)
[2017-10-08] MEDS: TORSEMIDE 20 MG TAB PO SCH (08:32)
[2017-10-08] MEDS: ATORVASTATIN 40 MG TAB PO SCH (08:32)
[2017-10-08] MEDS: DIGOXIN 0.125 MG TAB PO SCH (08:32)
[2017-10-08] MEDS: LISINOPRIL 20 MG TAB PO SCH (08:32)
[2017-10-08] MEDS: PANTOPRAZOLE SOD 40 MG DELAYED RELEASE TAB PO SCH (08:32)
[2017-10-08] MEDS: SODIUM CHLORIDE 0.9% FLUSH 10 ML FLUSH IV FLUSH SCH (08:33)
[2017-10-08] MEDS: FLUTICASONE PROPIONATE 50 MCG/ACT 16 GM NASAL SPRAY EACH NARE SCH (09:00)
[2017-10-08 12:24] LABS: INTERNATIONAL NORMALIZED RATIO 3.1 RATIO; PROTHROMBIN TIME - PATIENT 31.2 SEC (9.8-11.6)
--- NOTE | 2017-10-08 14:12 | HHI.DS ---
Discharge Summary Admission Date Oct 06, 2017 at 08:57 Admitting Diagnosis CHF exacerbation (1) Edema ICD Codes: R60.9 - Edema, unspecified Status: Chronic (2) CHF exacerbation Diagnosis: Principal ICD Codes: I50.9 - Heart failure, unspecified Status: Acute (3) NEREYDA (acute kidney injury) ICD Codes: N17.9 - NEREYDA (acute kidney injury) Status: Chronic (4) Pneumonia Diagnosis: Principal ICD Codes: J18.9 - Pneumonia, unspecified organism Status: Acute (5) COPD (chronic obstructive pulmonary disease) Diagnosis: Principal ICD Codes: J44.9 - Chronic obstructive pulmonary disease Status: Chronic Brief History Adm with recurrent SOB with recent PNA, an exacerbation of COPD and CHF. Ozzie was seen by palliative care and elected for D/C home with Hospice. He is cleared to proceed today per his and his family wishes. CBC/BMP: 10/06/17 0710 10/07/17 0730 Significant Findings Laboratory Tests Test 10/06/17 07:10 10/06/17 10:50 10/07/17 07:30 10/07/17 12:54 Red Blood Count 3.29 MIL/MM3 (4.50-5.90) Hemoglobin 8.3 GM/DL (13.0-17.0) Hematocrit 27.0 % (39.0-51.0) Mean Corpuscular Hemoglobin 25.1 PG (27.0-34.0) Mean Corpuscular Hemoglobin Concent 30.6 % (32.0-36.0) Red Cell Distribution Width 17.5 % (11.6-17.2) Neutrophils (%) (Auto) 76.9 % (16.0-70.0) Lymphocytes (%) (Auto) 6.9 % (9.0-44.0) Monocytes (%) (Auto) 9.2 % (0.0-8.0) Eosinophils (%) (Auto) 4.5 % (0.0-4.0) Basophils (%) (Auto) 2.5 % (0.0-2.0) Lymphocytes # (Auto) 0.4 TH/MM3 (1.0-4.8) Blood Urea Nitrogen 50 MG/DL (7-18) 53 MG/DL (7-18) Creatinine 2.00 MG/DL (0.60-1.30) 1.77 MG/DL (0.60-1.30) Random Glucose 171 MG/DL (74-106) 160 MG/DL (74-106) Albumin 2.8 GM/DL (3.4-5.0) 2.8 GM/DL (3.4-5.0) Calcium Level 8.4 MG/DL (8.5-10.1) Carbon Dioxide Level 39.0 MEQ/L (21.0-32.0) 42.3 MEQ/L (21.0-32.0) Anion Gap 3 MEQ/L (5-15) 1 MEQ/L (5-15) Estimat Glomerular Filtration Rate 32 ML/MIN (>89) 37 ML/MIN (>89) B-Type Natriuretic Peptide 650 PG/ML (0-100) Prothrombin Time 26.4 SEC (9.8-11.6) 30.3 SEC (9.8-11.6) Total Protein 6.3 GM/DL (6.4-8.2) Aspartate Amino Transf (AST/SGOT) 13 U/L (15-37) Chloride Level 97 MEQ/L (98-107) Test 10/08/17 11:46 Prothrombin Time 31.2 SEC (9.8-11.6) PE at Discharge HEENT - AT/NC; CV - Irregular-Irregular rate and rhythm; Lungs - Scattered rales ; Abd - Soft and nontender; MS - 2+ edema BLE Hospital Course Adm with recurrent SOB with recent PNA, an exacerbation of COPD and CHF. Ozzie was seen by palliative care and elected for D/C home with Hospice. He is cleared to proceed today per his and his family wishes. Pt Condition on Discharge: Fair Discharge Disposition: Hospice/ Home Discharge Instructions DIET: Follow Instructions for: As Tolerated, No Restrictions Activities you can perform: Regular-No Restrictions Ja Brody Oct 08, 2017 14:12
[2017-10-08] MEDS ORDERED: WARFARIN SOD 2.5 MG TAB PO SCH (16:00)
--- NOTE | 2017-10-11 20:36 | MD ---
cc: KERRI MCCLURE M.D., R. STEVEN ADMISSION DATE: 10/06/2017 DISCHARGE DATE: 10/08/2017 HISTORY OF PRESENT ILLNESS: Mr. Sanon is an 81-year-old white male well known to me with oxygen-dependent advanced COPD with chronic CO2 retention. He also has chronic diastolic cardiomyopathy with associated pulmonary hypertension. He is diabetic with chronic venous insufficiency and has now developed some renal insufficiency probably iatrogenic due to an effort to diurese him. On presentation to the hospital for the third time this month, he continued to complain of shortness of breath but BUN has risen to 2 with a creatinine of 50. Follow up creatinine is 1.7. His hospital course was uncomplicated. He was continued on all of his routine medications including his diuretics and warfarin. He is also on chronic oxygen and nebulized treatments. After a thorough conversation with he and his about his chronic cardiopulmonary status and recurrent admissions, we asked palliative care to see him and they have had a discussion with him about hospice. Hospice is meeting with him today and both Nathan and his , Melania, are interested in being discharged home with Hospice care service. Once that is arranged, the patient will be discharged, continued on current therapy but with the hope of not requiring rehospitalization for what now had become chronic irreversible conditions. I will see him back in the office as needed. Will call him next week to check his status. MD BARAK Du/JAKE /12:37 PM /8:26 PM
== END 2017-10-08 15:20 | disposition home or self-care (01) | DRG 291 ==
LOC: NEPC 06:42 → NEDA 08:57 → N04A 14:48
PROVIDERS: ADMIT Family Medicine; ATTEND Family Medicine
DX: I50.33 Acute on chronic diastolic (congestive) heart failure (principal); J18.9 Pneumonia, unspecified organism; N17.9 Acute kidney failure, unspecified; J44.0 Chronic obstructive pulmonary disease with (acute) lower respiratory infection; E11.22 Type 2 diabetes mellitus with diabetic chronic kidney disease; I27.20 Pulmonary hypertension, unspecified; I48.1 Persistent atrial fibrillation; N18.3 Chronic kidney disease, stage 3 (moderate); I13.0 Hypertensive heart and chronic kidney disease with heart failure and stage 1 through stage 4 chronic kidney disease, or unspecified chronic kidney disease; J44.1 Chronic obstructive pulmonary disease with (acute) exacerbation; F41.9 Anxiety disorder, unspecified; F32.9 Major depressive disorder, single episode, unspecified; E78.00 Pure hypercholesterolemia, unspecified; H91.90 Unspecified hearing loss, unspecified ear; N40.0 Benign prostatic hyperplasia without lower urinary tract symptoms; H93.12 Tinnitus, left ear; Z96.653 Presence of artificial knee joint, bilateral; G47.30 Sleep apnea, unspecified; I87.2 Venous insufficiency (chronic) (peripheral); M19.90 Unspecified osteoarthritis, unspecified site; R60.0 Localized edema; Z51.5 Encounter for palliative care; Z99.81 Dependence on supplemental oxygen; Z79.01 Long term (current) use of anticoagulants; Z95.810 Presence of automatic (implantable) cardiac defibrillator; Z74.01 Bed confinement status; Z79.4 Long term (current) use of insulin; Z87.891 Personal history of nicotine dependence
CPT/HCPCS: 71045; 80053; 82948; 83880; 84484; 85025; 85610; 93005; 94640; 94664; 96374; J1940

== ENCOUNTER 2017-10-14 10:36 | Inpatient (IN) | payer MEDICARE, OTHER ==
[~2017-10-14] VITALS: Ht 190.5 cm; Wt 102.2 kg
[2017-10-14] VITALS (13 sets, daily range): BP systolic 96–115; BP diastolic 40–78; PULSE 68–93; RESP 16–20; TEMP 96–98.3; O2SAT 95–100
[~2017-10-14 10:36] MED LIST changes: +WARF-18 PO
--- NOTE | 2017-10-14 11:43 | PD ---
HPI . GI bleed Chief Complaint: GI Complaint Time Seen by Provider: 11:01 Travel History International Travel<30 days: No Contact w/Intl Traveler<30days: No Traveled to known affect area: No History of Present Illness HPI This is a hospice patient who presents to us because of an acute lower GI bleed. He has atrial fibrillation and is on Coumadin. He started bleeding this morning. The hospice nurse called to report that there was blood all over the house when she got there. The patient reports no pain. He is not feeling weak or dizzy or short of breath. 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 He states that he would take blood if he needed it. 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) Endocrine: Yes Gastrointestinal Disorders: Yes GERD: No Glaucoma: No Genitourinary: Yes (BPH) Headaches: Yes (R/T SINUSITIS) Hepatitis: No Hiatal Hernia: Yes Hypertension: Yes Immune Disorder: No Implanted Vascular Access Dvce: Yes Kidney Stones: No Musculoskeletal: Yes Neurologic: Yes Psychiatric: Yes Reproductive: No Respiratory: Yes (COPD - HOSPICE) Integumentary: Yes Immunizations Current: No Migraines: No Radiation Therapy: No Renal Failure: No Seizures: No Sickle Cell Disease: No Sleep Apnea: Yes (cpap at night sometimes.) Thyroid Disease: No Ulcer: No Past Surgical History Abdominal Surgery: Yes (HERNIA REPAIR) AICD: Yes Appendectomy: Yes Arteriovenous Shunt: No Body Medical Devices: left and right knee replacement, aicd Cardiac Surgery: Yes (PACEMAKER/DEFIB) Cholecystectomy: Yes Ear Surgery: No Endocrine Surgery: No Eye Surgery: Yes Genitourinary Surgery: No Gynecologic Surgery: No Insulin Pump: No Joint Replacement: Yes (bilat total knee replacement) Neurologic Surgery: No Oral Surgery: No Pacemaker: Yes (REPLACED IN NOVEMBER 2016) Thoracic Surgery: No Other Surgery: Yes (pacemaker placement, herniated appendix) Social History Alcohol Use: No Tobacco Use: No Substance Use: No Allergies-Medications (Allergen,Severity, Reaction): Coded Allergies: MRI PRECAUTION (Verified Allergy, Severe, 10/14/17) Uncoded Allergies: STEROIDS (Adverse Reaction, Mild, 01/10/17) ELEVATED BLOOD SUGAR Reported Meds & Prescriptions Reported Meds & Active Scripts Active Ativan (Lorazepam) 2 Mg Tab 2 Mg PO Q6H PRN Tylenol-Codeine #3 (Acetaminophen-Codeine) 300-30 mg Tab 1 Tab PO Q4H PRN DO NOT USE THIS MEDICINE IF YOU WILL DRIVE A CAR OR USE A MACHINE, ONLY USE IT WHEN RESTING AT HOME. Walker/Adult/Folding (Device) 1 Mis Mis Ea .ROUTE DIRECTED Oxygen tank (Oxygen) 1 Ea Tank 2 Liter JAKE.CANULA CONTINUOUS Oxygen Concentrator Portable Gaseous 2 L/min via Nasal Cannula Continuous For 99 months Digoxin 0.125 Mg Tab 0.125 Mg PO DAILY Reported Warfarin 2.5 Mg Tab 2.5 Mg PO E,RODDY,SAT Warfarin 5 Mg Tab 5 Mg PO MON,WED,TUE,SUN Fluticasone Nasal [place] 50 Mcg/Act Naspr 50 Mcg EACH NARE DAILY 50 mcg/spray Acarbose 100 Mg Tab 100 Mg PO TID Take with first bite of meal. Lantus Inj (Insulin Glargine) 1,000 Unit/10 Ml Vial 15 Units SQ HS Duoneb (Ipratropium-Albuterol Neb) 0.5-2.5 Mg/3 Ml Neb 3 Ml NEB TID Senna S (Sennosides-Docusate Sodium) 8.6-50 Mg Tab 1 Tab PO DAILY PRN Vitamin D3 (Cholecalciferol) 5,000 Unit Cap 5,000 Units PO HS Trazodone (Trazodone HCl) 50 Mg Tab 50 Mg PO HS Gabapentin 300 Mg Cap 600 Mg PO BID Vitamin B12 (Cyanocobalamin) 100 Mcg Tab 100 Mcg PO DAILY Omeprazole 40 Mg Cap 40 Mg PO BID Atorvastatin (Atorvastatin Calcium) 40 Mg Tab 40 Mg PO DAILY Torsemide 20 Mg Tab 40 Mg PO BID Lisinopril 20 Mg Tab 20 Mg PO DAILY Bystolic (Nebivolol) 10 Mg Tab 10 Mg PO BID Finasteride 5 Mg Tab 5 Mg PO HS Do not crush. Review of Systems Except as stated in HPI: all other systems reviewed are Neg General / Constitutional: No: Fever, Chills HENT: No: Lightheadedness Cardiovascular: No: Chest Pain or Discomfort Respiratory: No: Shortness of Breath Gastrointestinal: Positive: Hematochezia, No: Nausea, Vomiting, Abdominal Pain Physical Exam Narrative GENERAL: Awake and alert. SKIN: Pale. Dry. HEAD: Normocephalic. Atraumatic. EYES: Pupils equal and round. No scleral icterus. No injection or drainage. ENT: No nasal bleeding or discharge. Mucous membranes pink and moist. NECK: Trachea midline. Full range of motion without pain.. CARDIOVASCULAR: Regular rate and rhythm. RESPIRATORY: No accessory muscle use. Clear to auscultation. Breath sounds equal bilaterally. GASTROINTESTINAL: Abdomen soft. Nontender. Bowel sounds present. Nondistended. MUSCULOSKELETAL: No obvious deformities. NEUROLOGICAL: Awake and alert. No obvious cranial nerve deficits. Motor grossly within normal limits. Normal speech. PSYCHIATRIC: Appropriate mood and affect; insight and judgment normal. Data Data Last Documented VS Vital Signs Date Time Temp Pulse Resp B/P (MAP) Pulse Ox O2 Delivery O2 Flow Rate FiO2 10/14/17 10:43 97.8 70 16 105/40 (61) 95 Orders Orders Basic Metabolic Panel (Bmp) (10/14/17 11:15) Complete Blood Count With Diff (10/14/17 11:15) Prothrombin Time / Inr (Pt) (10/14/17 11:15) Act Partial Throm Time (Ptt) (10/14/17 11:15) Type And Screen (10/14/17 11:15) Iv Access Insert/Monitor (10/14/17 11:15) Sodium Chloride 0.9% Flush (Ns Flush) (10/14/17 11:15) Red Blood Cells (Rbc) (10/14/17 12:08) Fresh Frozen Plasma (Ffp) (10/14/17 12:08) Blood Product Administration (10/14/17 12:08) Sodium Chlor 0.9% 250 Ml Inj (Ns 250 Ml (10/14/17 12:15) Diphenhydramine (Benadryl) (10/14/17 12:15) Acetaminophen (Tylenol) (10/14/17 12:15) Phytonadione Inj (Vitamin K Inj) (10/14/17 12:15) Acetaminophen (Tylenol) (10/14/17 12:15) Labs Laboratory Tests Test 10/14/17 11:30 White Blood Count 7.5 TH/MM3 Red Blood Count 2.03 MIL/MM3 Hemoglobin 5.0 GM/DL Hematocrit 16.1 % Mean Corpuscular Volume 79.5 FL Mean Corpuscular Hemoglobin 24.6 PG Mean Corpuscular Hemoglobin Concent 31.0 % Red Cell Distribution Width 16.1 % Platelet Count 321 TH/MM3 Mean Platelet Volume 7.7 FL Neutrophils (%) (Auto) 87.3 % Lymphocytes (%) (Auto) 4.8 % Monocytes (%) (Auto) 5.1 % Eosinophils (%) (Auto) 2.1 % Basophils (%) (Auto) 0.7 % Neutrophils # (Auto) 6.4 TH/MM3 Lymphocytes # (Auto) 0.4 TH/MM3 Monocytes # (Auto) 0.4 TH/MM3 Eosinophils # (Auto) 0.2 TH/MM3 Basophils # (Auto) 0.1 TH/MM3 CBC Comment AUTO DIFF Differential Comment AUTO DIFF CONFIRMED Ovalocytes 1+ Prothrombin Time 28.9 SEC Prothromb Time International Ratio 2.9 RATIO Activated Partial Thromboplast Time 31.0 SEC Blood Urea Nitrogen 65 MG/DL Creatinine 1.70 MG/DL Random Glucose 206 MG/DL Calcium Level 8.1 MG/DL Sodium Level 141 MEQ/L Potassium Level 4.8 MEQ/L Chloride Level 96 MEQ/L Carbon Dioxide Level 42.6 MEQ/L Anion Gap 2 MEQ/L Estimat Glomerular Filtration Rate 39 ML/MIN MDM Medical Decision Making Medical Screen Exam Complete: Yes Emergency Medical Condition: Yes Differential Diagnosis Differential diagnosis includes but is not limited to hemorrhoid, diverticulitis , cancer, coagulopathy Narrative Course This is a patient who takes Coumadin because of atrial fibrillation who presents with painless lower GI bleeding. He looks pale. I have ordered a type and screen pending his H&H. Vitamin K will be considered pending his INR. FFP will be another option. CBC Diagram 10/14/17 11:30 BMP Diagram 10/14/17 11:30 Calcium Level 8.1 L INR 2.9 I have ordered 4 units to be typed and crossed with 2 units to be given. I have also ordered 2 units of FFP as well as IM vitamin K. Physician Communication Physician Communication Dr. Hirsch. Diagnosis Primary Impression: GI bleed Qualified Codes: K92.2 - Gastrointestinal hemorrhage, unspecified Additional Impressions: Warfarin-induced coagulopathy Anemia Qualified Codes: D62 - Acute posthemorrhagic anemia Admitting Information Admitting Physician Requests: Admit Condition: Stable Carissa Flores MD Oct 14, 2017 11:43
[2017-10-14 11:47] LABS: AUTOMATED NEUTROPHIL # 6.4 TH/MM3 (1.8-7.7); BASOPHIL # 0.1 TH/MM3 (0-0.2); BASOPHIL % 0.7 % (0.0-2.0); EOSINOPHIL # 0.2 TH/MM3 (0-0.4); EOSINOPHIL % 2.1 % (0.0-4.0); LYMPH % 4.8 % (9.0-44.0); LYMPHOCYTE # 0.4 TH/MM3 (1.0-4.8); MEAN CELL VOLUME 79.5 FL (80.0-100.0); MEAN CORPUSCULAR HEMOGLOBIN 24.6 PG (27.0-34.0); MEAN PLATELET VOLUME 7.7 FL (7.0-11.0); MONO % 5.1 % (0.0-8.0); MONOCYTE # 0.4 TH/MM3 (0-0.9); NEUT % 87.3 % (16.0-70.0); PLATELET COUNT 321 TH/MM3 (150-450); RED BLOOD COUNT 2.03 MIL/MM3 (4.50-5.90); RED CELL DISTRIBUTION WIDTH 16.1 % (11.6-17.2); WHITE BLOOD COUNT 7.5 TH/MM3 (4.0-11.0)
[2017-10-14 11:58] LABS: BICARBONATE 42.6 MEQ/L (21.0-32.0); CALCIUM 8.1 MG/DL (8.5-10.1)
[2017-10-14 11:59] LABS: INTERNATIONAL NORMALIZED RATIO 2.9 RATIO; PROTHROMBIN TIME - PATIENT 28.9 SEC (9.8-11.6)
[2017-10-14 12:01] LABS: CREATININE 1.7 MG/DL (0.60-1.30)
[2017-10-14 12:02] LABS: HEMATOCRIT 16.1 % (39.0-51.0)
[2017-10-14] MEDS ORDERED: PHYTONADIONE 10 MG/ML VIAL SQ ONE (12:15)
[2017-10-14] MEDS ORDERED: diphenhydrAMINE HCL 25 MG CAP PO ONE (12:15)
[2017-10-14] MEDS ORDERED: ACETAMINOPHEN 325 MG TAB PO ONE ×2 (12:15)
[2017-10-14] MEDS ORDERED: SODIUM CHLOR 0.9% 250 ML INJ 250 ML IV ONE (12:15)
[2017-10-14 12:31] LABS: OVALOCYTES 1+ (NORMAL)
--- NOTE | 2017-10-14 15:40 | HHI.HP ---
[facility] Service [facility] Primary Care Physician Phyllis Moran MD Admission Diagnosis Anemia, GI bleed, warfarin-induced coagulopathy Diagnoses: (1) GI bleed (2) Anemia (3) Warfarin-induced coagulopathy Chief Complaint: GI bleed Travel History International Travel<30 Days: No Contact w/Intl Traveler <30 Da: No Traveled to Known Affected Are: No History of Present Illness This is a pleasant 81-year-old male patient with a known medical history of atrial fibrillation on Coumadin, hyperlipidemia, COPD, hypertension who is currently on home hospice due to end-stage COPD presented to the ED with acute lower GI bleed. Patient states that he woke this morning, went to the restroom and had a massive bowel movement that was liquid and blood. He has been taking Coumadin for chronic atrial fibrillation, INR is therapeutic 2.9. 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 Was discharged home with hemoglobin and hematocrit at baseline, no further active bleeding and orders to follow-up with hematology and GI. No reports of patient following up with GI. Patient follows with Dr. Galo, pulmonology. PCP is Dr. Moran. Cardiology Dr. Ramirez. Patient has been on Hospice for a week or so due to end stage COPD, although patient desires to get better and receive blood transfusions and intervention if possible. Review of Systems Constitutional: COMPLAINS OF: Fatigue, DENIES: Fever, Chills Eyes: DENIES: Blurred vision, Diplopia Respiratory: DENIES: Cough, Sputum production, Shortness of breath Cardiovascular: DENIES: Chest pain, Palpitations Gastrointestinal: COMPLAINS OF: Bloody stools, DENIES: Abdominal pain, Black stools, Constipation, Diarrhea, Nausea Hematologic/lymphatic: DENIES: Bruising Immunologic/allergic: DENIES: Eczema Neurologic: DENIES: Abnormal gait Psychiatric: DENIES: Anxiety Except as stated in HPI: all other systems reviewed are Neg Past Family Social History Past Medical History Atrial fibrillation on Coumadin Anemia Arthritis Anxiety Depression Hyperlipidemia Congestive heart failure End-stage COPD Diabetes BPH Hypertension Sleep apnea Past Surgical History Arthritis Anemia Atrial fibrillation on Coumadin Anxiety Depression Hyperlipidemia Hypertension End-stage COPD Diabetes BPH Sleep apnea Reported Medications Active Ativan (Lorazepam) 2 Mg Tab 2 Mg PO Q6H PRN Tylenol-Codeine #3 (Acetaminophen-Codeine) 300-30 mg Tab 1 Tab PO Q4H PRN DO NOT USE THIS MEDICINE IF YOU WILL DRIVE A CAR OR USE A MACHINE, ONLY USE IT WHEN RESTING AT HOME. Walker/Adult/Folding (Device) 1 Mis Mis Ea .ROUTE DIRECTED Oxygen tank (Oxygen) 1 Ea Tank 2 Liter JAKE.CANULA CONTINUOUS Oxygen Concentrator Portable Gaseous 2 L/min via Nasal Cannula Continuous For 99 months Digoxin 0.125 Mg Tab 0.125 Mg PO DAILY Reported Warfarin 2.5 Mg Tab 2.5 Mg PO TUE,TUE,SAT Warfarin 5 Mg Tab 5 Mg PO TUE,TUE,TUE,SUN Fluticasone Nasal [place] 50 Mcg/Act Naspr 50 Mcg EACH NARE DAILY 50 mcg/spray Acarbose 100 Mg Tab 100 Mg PO TID Take with first bite of meal. Lantus Inj (Insulin Glargine) 1,000 Unit/10 Ml Vial 15 Units SQ HS Duoneb (Ipratropium-Albuterol Neb) 0.5-2.5 Mg/3 Ml Neb 3 Ml NEB TID Senna S (Sennosides-Docusate Sodium) 8.6-50 Mg Tab 1 Tab PO DAILY PRN Vitamin D3 (Cholecalciferol) 5,000 Unit Cap 5,000 Units PO HS Trazodone (Trazodone HCl) 50 Mg Tab 50 Mg PO HS Gabapentin 300 Mg Cap 600 Mg PO BID Vitamin B12 (Cyanocobalamin) 100 Mcg Tab 100 Mcg PO DAILY Omeprazole 40 Mg Cap 40 Mg PO BID Atorvastatin (Atorvastatin Calcium) 40 Mg Tab 40 Mg PO DAILY Torsemide 20 Mg Tab 40 Mg PO BID Lisinopril 20 Mg Tab 20 Mg PO DAILY Bystolic (Nebivolol) 10 Mg Tab 10 Mg PO BID Finasteride 5 Mg Tab 5 Mg PO HS Do not crush. Allergies: Coded Allergies: MRI PRECAUTION (Verified Allergy, Severe, 10/14/17) Uncoded Allergies: STEROIDS (Adverse Reaction, Mild, 01/10/17) ELEVATED BLOOD SUGAR Active Ordered Medications Reported Meds & Active Scripts Active Ativan (Lorazepam) 2 Mg Tab 2 Mg PO Q6H PRN Tylenol-Codeine #3 (Acetaminophen-Codeine) 300-30 mg Tab 1 Tab PO Q4H PRN DO NOT USE THIS MEDICINE IF YOU WILL DRIVE A CAR OR USE A MACHINE, ONLY USE IT WHEN RESTING AT HOME. Walker/Adult/Folding (Device) 1 Mis Mis Ea .ROUTE DIRECTED Oxygen tank (Oxygen) 1 Ea Tank 2 Liter JAKE.CANULA CONTINUOUS Current Medications Medications (Trade) Dose Ordered Sig/Faviola Route Start Time Stop Time Status Last Admin (NS Flush) 2 ml UNSCH PRN IVF 10/14/17 11:15 Sodium Chloride 250 ml @ 15 mls/hr ONCE ONCE IV 10/14/17 12:15 10/15/17 04:54 Family History Reviewed, noncontributory. Social History Patient denies any current or history of smoking, denies any alcohol use or illicit drug use. Physical Exam Vital Signs Vital Signs Date Time Temp Pulse Resp B/P (MAP) Pulse Ox O2 Delivery O2 Flow Rate FiO2 10/14/17 14:50 98.1 70 20 115/67 (83) 100 10/14/17 14:13 10/14/17 13:25 76 16 104/78 (87) 99 Room Air 10/14/17 10:43 97.8 70 16 105/40 (61) 95 Physical Exam GENERAL: Well-developed, well-nourished patient in NAD. On 4 L nasal cannula SKIN: Warm and dry. No rash. Pale HEAD: Normocephalic. Atraumatic. EYES: Pupils equal and round. No scleral icterus. No injection or drainage. ENT: No nasal bleeding or discharge. Mucous membranes pink and moist. NECK: Supple. Trachea midline. CARDIOVASCULAR: Regular rate and rhythm. S1, S2 noted. RESPIRATORY: No accessory muscle use. Clear to auscultation. Breath sounds equal bilaterally. GASTROINTESTINAL: Abdomen soft, non-tender, nondistended. Normoactive bowel sounds x4. MUSCULOSKELETAL: No obvious deformities. Extremities without clubbing, cyanosis , or edema. NEUROLOGICAL: Awake and alert. No obvious cranial nerve deficits. Motor grossly within normal limits. 5/5 muscle strength in bilateral upper and lower extremities. Normal speech. PSYCHIATRIC: Appropriate mood and affect; insight and judgment normal. Laboratory Laboratory Tests Test 10/14/17 11:30 White Blood Count 7.5 Red Blood Count 2.03 Hemoglobin 5.0 Hematocrit 16.1 Mean Corpuscular Volume 79.5 Mean Corpuscular Hemoglobin 24.6 Mean Corpuscular Hemoglobin Concent 31.0 Red Cell Distribution Width 16.1 Platelet Count 321 Mean Platelet Volume 7.7 Neutrophils (%) (Auto) 87.3 Lymphocytes (%) (Auto) 4.8 Monocytes (%) (Auto) 5.1 Eosinophils (%) (Auto) 2.1 Basophils (%) (Auto) 0.7 Neutrophils # (Auto) 6.4 Lymphocytes # (Auto) 0.4 Monocytes # (Auto) 0.4 Eosinophils # (Auto) 0.2 Basophils # (Auto) 0.1 CBC Comment AUTO DIFF Differential Comment AUTO DIFF CONFIRMED Ovalocytes 1+ Prothrombin Time 28.9 Prothromb Time International Ratio 2.9 Activated Partial Thromboplast Time 31.0 Blood Urea Nitrogen 65 Creatinine 1.70 Random Glucose 206 Calcium Level 8.1 Sodium Level 141 Potassium Level 4.8 Chloride Level 96 Carbon Dioxide Level 42.6 Anion Gap 2 Estimat Glomerular Filtration Rate 39 Result Diagram: 10/14/17 1130 10/14/17 1130 Septic Shock Reassessment Septic shock perfusion: reassessment completed Caprini VTE Risk Assessment Caprini VTE Risk Assessment: Mod/High Risk (score >= 2) Caprini Risk Assessment Model Point Value = 1 Point Value = 2 Point Value = 3 Point Value = 5 Age 41-60 Minor surgery BMI > 25 kg/m2 Swollen legs Varicose veins or History of unexplained or recurrent spontaneous Oral contraceptives or hormone replacement Sepsis (< 1 month) Serious lung disease, including pneumonia (< 1 month) Abnormal pulmonary function Acute myocardial infarction Congestive heart failure (< 1 month) History of inflammatory bowel disease Medical patient at bed rest Age 61-74 Arthroscopic surgery Major open surgery (> 45 min) Laparoscopic surgery (> 45 min) Malignancy Confined to bed (> 72 hours) Immobilizing plaster cast Central venous access Age >= 75 History of VTE Family history of VTE Factor V Leiden Prothrombin [id number] Lupus anticoagulant Anticardiolipin antibodies Elevated serum homocysteine Heparin-induced thrombocytopenia Other congenital or acquired thrombophilia Stroke (< 1 month) Elective arthroplasty Hip, pelvis, or leg fracture Acute spinal cord injury (< 1 month) Prophylaxis Regimen Total Risk Factor Score Risk Level Prophylaxis Regimen 0-1 Low Early ambulation 2 Moderate Order ONE of the following: *Sequential Compression Device (SCD) *Heparin 5000 units SQ BID 3-4 Higher Order ONE of the following medications: *Heparin 5000 units SQ TID *Enoxaparin/Lovenox 40 mg SQ daily (WT < 150 kg, CrCl > 30 mL/min) *Enoxaparin/Lovenox 30 mg SQ daily (WT < 150 kg, CrCl > 10-29 mL/min) *Enoxaparin/Lovenox 30 mg SQ BID (WT < 150 kg, CrCl > 30 mL/min) AND/OR *Sequential Compression Device (SCD) 5 or more Highest Order ONE of the following medications: *Heparin 5000 units SQ TID (Preferred with Epidurals) *Enoxaparin/Lovenox 40 mg SQ daily (WT < 150 kg, CrCl > 30 mL/min) *Enoxaparin/Lovenox 30 mg SQ daily (WT < 150 kg, CrCl > 10-29 mL/min) *Enoxaparin/Lovenox 30 mg SQ BID (WT < 150 kg, CrCl > 30 mL/min) AND *Sequential Compression Device (SCD) Assessment and Plan Assessment and Plan This is a pleasant 81-year-old male patient with a known medical history of atrial fibrillation on Coumadin, hyperlipidemia, COPD, hypertension who is currently on home hospice due to end-stage COPD presented to the ED with acute lower GI bleed. Acute lower GI bleed History of AVM status post APC Recent hospitalization for GI bleed Hemoglobin 5.0/hematocrit 16.1. Reports of large liquid bloody bowel movement this morning. No associated symptoms including dizziness, weakness, shortness of breath or lightheadedness. 4 units PRBC ordered and ED. 2 units FFP ordered in ED. Trend H&H. Continue to monitor for any further bleeding. Monitor vital signs, currently stable. Vitamin K given in ED. Will place on Protonix 40 mg twice daily. Continue IV fluids. Monitor for any overload. Consult placed to gastroenterology, appreciate further input and recommendations. Supplemental O2 as needed, patient on 4 L nasal cannula at home. COPD not in exacerbation, end-stage Patient follows with Dr. Galo in the outpatient setting. Currently on hospice at home. Requires 4 L nasal cannula at home. Continue home duo nebs. Requested palliative care to come see patient, to reestablish goals. At this time patient stating he wants to be a full code and undergo any needed intervention for anemia. Appreciate input recommendations. Atrial fibrillation, chronic: Continue cardiac telemetry. Monitor for any arrhythmias. Will hold Coumadin for now. Active bleeding. CAD history Hypertension, chronic Hyperlipidemia, chronic Continue home medications. Will hold lisinopril. Continue IV fluids. Chronic kidney disease stage III: Creatinine 1.7. Continue IV fluids. Monitor for overload. Monitor intake and output. History of diabetes, chronic: Accu-Cheks before meals at bedtime, sliding scale , cover as needed. DVT prophylaxis: SCDs. Hold on chemical prophylaxis, active bleeding. Physician Certification 2 Midnight Certification Type: Admission for Inpatient Services Order for Inpatient Services The services are ordered in accordance with Medicare regulations or non- Medicare payer requirements, as applicable. In the case of services not specified as inpatient-only, they are appropriately provided as inpatient services in accordance with the 2-midnight benchmark. Estimated LOS (days): 3 3 days is the estimated time the patient will need to remain in the hospital, assuming treatment plan goals are met and no additional complications. Post-Hospital Plan: Not yet determined Problem Qualifiers (1) GI bleed: Qualified Codes: K92.2 - Gastrointestinal hemorrhage, unspecified (2) Anemia: Qualified Codes: D62 - Acute posthemorrhagic anemia Carolina Pacheco Oct 14, 2017 15:40
[2017-10-14] MEDS ORDERED: DOCUSATE SODIUM 50 MG/SENNA 8.6 MG TAB PO PRN (17:00)
[2017-10-14] MEDS: INSULIN ASPART SUPPLEMENTAL SCALE SQ SCH ×2 (17:00→21:00)
[2017-10-14] MEDS: SODIUM CHLOR 0.9% 1000 ML INJ 1,000 ML IV SCH ×2 (17:00→22:49)
[2017-10-14] MEDS ORDERED: GLUCAGON 1 MG/ML VIAL OTHER PRN (17:00)
[2017-10-14] MEDS ORDERED: DEXTROSE 50% IN WATER 50 ML VIAL(D50) IV PUSH PRN (17:00)
[2017-10-14] MEDS: RESP: ALBUTEROL 2.5 MG/IPRATROPIUM 0.5 MG NEB (SCH) NEB (19:31)
--- NOTE | 2017-10-14 20:05 | PD.CONS ---
HPI History of Present Illness This is a 81 year old male who was admitted to the hospital with history of GI bleeding. This was in the form of moderate to large amounts of bright red and maroon colored blood per rectum. Patient is known to have atrial fibrillation and is on treatment with Coumadin. INR at admission was 2.9. 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 This required treatment with APC. Since admission patient has been receiving blood transfusion. He continues to have rectal bleeding. He denies any history of abdominal pain hematemesis melena jaundice ascites edema. He denies heartburn dysphagia constipation diarrhea anorexia or weight loss. 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 PFSH Past Medical History Atrial fibrillation on Coumadin Anemia Arthritis Anxiety Depression Hyperlipidemia Congestive heart failure End-stage COPD Diabetes BPH Hypertension Sleep apnea Past Surgical History Arthritis Anemia Atrial fibrillation on Coumadin Anxiety Depression Hyperlipidemia Hypertension End-stage COPD Diabetes BPH Sleep apnea Coded Allergies: MRI PRECAUTION (Verified Allergy, Severe, 10/14/17) Uncoded Allergies: STEROIDS (Adverse Reaction, Mild, 01/10/17) ELEVATED BLOOD SUGAR Medications Medication list in the MAR reviewed Family History Reviewed, noncontributory. Social History Patient denies any current or history of smoking, denies any alcohol use or illicit drug use. Review of Systems Cardiovascular: DENIES: Chest pain, Palpitations, Syncope, Lower Extremity Edema, Orthopnea, Claudication Gastrointestinal: COMPLAINS OF: Bloody stools, DENIES: Abdominal pain, Black stools, Constipation, Diarrhea, Nausea, Vomiting, Difficulty Swallowing, Anorexia, Odynophagia, Swelling of Abdomen, Heartburn, Hematemesis GI Exam Vitals I&O Vital Signs Date Time Temp Pulse Resp B/P (MAP) Pulse Ox O2 Delivery O2 Flow Rate FiO2 10/14/17 19:36 100 Nasal Cannula 3.00 10/14/17 16:46 71 18 108/55 100 10/14/17 16:33 97.8 68 18 106/55 100 10/14/17 16:23 97.6 68 16 109/49 10/14/17 16:14 18 10/14/17 16:00 97.1 70 100 10/14/17 14:50 98.1 70 20 115/67 (83) 100 10/14/17 14:13 10/14/17 13:25 76 16 104/78 (87) 99 Room Air 10/14/17 10:43 97.8 70 16 105/40 (61) 95 I/O 10/13/17 10/13/17 10/13/17 10/14/17 10/14/17 10/14/17 07:00 15:00 23:00 07:00 15:00 23:00 Intake Total 410 ml Output Total 700 ml Balance -700 ml 410 ml Intake Packed Cells 400 ml Blood Product IV Normal Saline Flush 10 ml Output Urine Total 700 ml Laboratory Test 10/14/17 11:30 White Blood Count 7.5 TH/MM3 Red Blood Count 2.03 MIL/MM3 Hemoglobin 5.0 GM/DL Hematocrit 16.1 % Mean Corpuscular Volume 79.5 FL Mean Corpuscular Hemoglobin 24.6 PG Mean Corpuscular Hemoglobin Concent 31.0 % Red Cell Distribution Width 16.1 % Platelet Count 321 TH/MM3 Mean Platelet Volume 7.7 FL Neutrophils (%) (Auto) 87.3 % Lymphocytes (%) (Auto) 4.8 % Monocytes (%) (Auto) 5.1 % Eosinophils (%) (Auto) 2.1 % Basophils (%) (Auto) 0.7 % Neutrophils # (Auto) 6.4 TH/MM3 Lymphocytes # (Auto) 0.4 TH/MM3 Monocytes # (Auto) 0.4 TH/MM3 Eosinophils # (Auto) 0.2 TH/MM3 Basophils # (Auto) 0.1 TH/MM3 CBC Comment AUTO DIFF Differential Comment AUTO DIFF CONFIRMED Ovalocytes 1+ Prothrombin Time 28.9 SEC Prothromb Time International Ratio 2.9 RATIO Activated Partial Thromboplast Time 31.0 SEC Blood Urea Nitrogen 65 MG/DL Creatinine 1.70 MG/DL Random Glucose 206 MG/DL Calcium Level 8.1 MG/DL Sodium Level 141 MEQ/L Potassium Level 4.8 MEQ/L Chloride Level 96 MEQ/L Carbon Dioxide Level 42.6 MEQ/L Anion Gap 2 MEQ/L Estimat Glomerular Filtration Rate 39 ML/MIN Physical Examination HEENT: Pupils round and reactive to light; normocephalic; atraumatic; pallor present no jaundice. Throat is clear. NECK: Neck is supple, no JVD, no lymphadenopathy. CHEST: Bilateral extensive rhonchi and rales heard over both lungs CARDIAC: Rate and rhythm are regular consistent with atrial fibrillation. Ejection systolic murmur grade 2 x 6 over the precordium. ABDOMEN: Soft, nondistended, nontender; no hepatosplenomegaly; bowel sounds are present in all four quadrants. EXTREMITIES: No clubbing, cyanosis, or edema. SKIN: Normal; no rash; no jaundice. TILE GRADER: No focal deficits; alert and oriented times three. Assessment and Plan Assessment: (1) Coumadin toxicity ICD Codes: T45.511A - Poisoning by anticoagulants, accidental (unintentional), initial encounter (2) AVM (arteriovenous malformation) ICD Codes: Q27.30 - Arteriovenous malformation, site unspecified (3) Anemia ICD Codes: D64.9 - Anemia, unspecified (4) GI bleeding ICD Codes: K92.2 - Gastrointestinal hemorrhage, unspecified Plan 1. Acute GI bleeding associated with severe anemia. Bleeding likely lower GI bleeding. Most probable source, AVMs in the GI tract. 2 Coumadin toxicity contributory factor. 3. End-stage COPD with respiratory failure. Patient was on home hospice. Present lung condition is a contraindication for any sedation required for endoscopic intervention. 4. Patient may benefit from angiogram to detect the site of GI bleeding and attempt TACE or foam embolization. 5. At the present time would advise to to not restart Coumadin and treat only with aspirin 6. Agree with supportive treatment consisting of blood transfusion and FFP 7. Monitor labs 8. Vitamin K injection IM 20 mg if okay with the hospitalist service Miacol Victor MD Oct 14, 2017 20:04
[2017-10-14] MEDS: TORSEMIDE 20 MG TAB PO SCH (20:38)
[2017-10-14] MEDS: traZODone HCL 50 MG TAB PO SCH (20:38)
[2017-10-14] MEDS: CHOLECALCIFEROL (VIT D3) 5000 UNIT CAP PO SCH (20:38)
[2017-10-14] MEDS: GABAPENTIN 300 MG CAP PO SCH (20:38)
[2017-10-14] MEDS: PANTOPRAZOLE SODIUM 40 MG VIAL IV PUSH SCH (20:38)
[2017-10-14] MEDS: FINASTERIDE 5 MG TAB PO SCH (20:39)
[2017-10-14] MEDS: NEBIVOLOL 10 MG TAB PO SCH (20:39)
[2017-10-14] MEDS ORDERED: PANTOPRAZOLE SOD 40 MG DELAYED RELEASE TAB PO SCH (21:00)
[2017-10-15] VITALS (14 sets, daily range): BP systolic 100–128; BP diastolic 52–64; PULSE 68–75; RESP 16–20; TEMP 96.4–98.2; O2SAT 94–100
[2017-10-15 07:02] LABS: AUTOMATED NEUTROPHIL # 3.7 TH/MM3 (1.8-7.7); BASOPHIL # 0.1 TH/MM3 (0-0.2); BASOPHIL % 1.3 % (0.0-2.0); EOSINOPHIL # 0.2 TH/MM3 (0-0.4); EOSINOPHIL % 3.6 % (0.0-4.0); HEMATOCRIT 18.8 % (39.0-51.0); LYMPH % 11.2 % (9.0-44.0); LYMPHOCYTE # 0.5 TH/MM3 (1.0-4.8); MEAN CELL VOLUME 80.7 FL (80.0-100.0); MEAN CORPUSCULAR HEMOGLOBIN 25.6 PG (27.0-34.0); MEAN CORPUSCULAR HGB CONC 31.7 % (32.0-36.0); MEAN PLATELET VOLUME 8.2 FL (7.0-11.0); MONO % 6.7 % (0.0-8.0); MONOCYTE # 0.3 TH/MM3 (0-0.9); NEUT % 77.2 % (16.0-70.0); PLATELET COUNT 271 TH/MM3 (150-450); RED BLOOD COUNT 2.33 MIL/MM3 (4.50-5.90); WHITE BLOOD COUNT 4.8 TH/MM3 (4.0-11.0)
[2017-10-15 07:08] LABS: INTERNATIONAL NORMALIZED RATIO 1.6 RATIO; PROTHROMBIN TIME - PATIENT 15.9 SEC (9.8-11.6)
[2017-10-15 07:10] LABS: CALCIUM 7.9 MG/DL (8.5-10.1)
[2017-10-15 07:11] LABS: BICARBONATE 41.1 MEQ/L (21.0-32.0)
[2017-10-15 07:14] LABS: CREATININE 1.5 MG/DL (0.60-1.30)
[2017-10-15] MEDS: RESP: ALBUTEROL 2.5 MG/IPRATROPIUM 0.5 MG NEB (SCH) NEB ×3 (07:25→19:47)
[2017-10-15 07:46] LABS: OVALOCYTES 1+ (NORMAL)
[2017-10-15] MEDS: INSULIN ASPART SUPPLEMENTAL SCALE SQ SCH ×4 (08:00→21:00)
[2017-10-15] MEDS: PANTOPRAZOLE SODIUM 40 MG VIAL IV PUSH SCH ×2 (08:21→20:50)
[2017-10-15] MEDS: GABAPENTIN 300 MG CAP PO SCH ×2 (08:22→20:51)
[2017-10-15] MEDS: DIGOXIN 0.125 MG TAB PO SCH (08:22)
[2017-10-15] MEDS: ATORVASTATIN 40 MG TAB PO SCH (08:22)
[2017-10-15] MEDS: CYANOCOBALAMIN 100 MCG TAB PO SCH (08:22)
[2017-10-15] MEDS: TORSEMIDE 20 MG TAB PO SCH ×2 (08:22→20:51)
[2017-10-15] MEDS: NEBIVOLOL 10 MG TAB PO SCH ×2 (09:00→20:50)
[2017-10-15] MEDS: FLUTICASONE PROPIONATE 50 MCG/ACT 16 GM NASAL SPRAY EACH NARE SCH (09:00)
[2017-10-15] MEDS ORDERED: FUROSEMIDE 40 MG/4 ML VIAL IV PUSH ONE (09:00)
--- NOTE | 2017-10-15 11:39 | HHI.PR ---
Subjective Remarks Follow-up GI bleed. Patient seen and examined, lying in bed comfortably. at bedside. Updated, hemoglobin 6.0 today. Will transfuse 2 units PRBC. Gastroenterology updated, will see patient today. Plan for bleeding scan today. Patient is asymptomatic, denies any lightheadedness, dizziness or nausea. Tolerating p.o. intake well. Patient had bowel movement last evening, reports of clotting and bloody stool. Vital signs are stable. Continue to monitor closely. Objective Vitals Vital Signs Date Time Temp Pulse Resp B/P (MAP) Pulse Ox O2 Delivery O2 Flow Rate FiO2 10/15/17 09:31 97.3 71 16 109/55 98 10/15/17 08:00 98.1 70 18 114/59 (77) 98 10/15/17 07:27 99 Nasal Cannula 3.00 10/15/17 04:00 97.6 75 18 119/64 (82) 97 10/15/17 03:00 98.2 75 16 101/60 96 10/15/17 00:00 97.6 69 18 100/59 (73) 100 10/14/17 23:15 97.6 69 19 100/59 100 10/14/17 23:14 96.0 73 19 105/57 98 10/14/17 22:39 97.8 72 18 96/58 99 10/14/17 21:48 98.3 93 19 101/55 97 10/14/17 20:00 97.5 70 18 107/55 (72) 95 10/14/17 19:36 100 Nasal Cannula 3.00 10/14/17 16:46 71 18 108/55 100 10/14/17 16:33 97.8 68 18 106/55 100 10/14/17 16:23 97.6 68 16 109/49 10/14/17 16:14 18 10/14/17 16:00 97.1 70 100 10/14/17 14:50 98.1 70 20 115/67 (83) 100 10/14/17 14:13 10/14/17 13:25 76 16 104/78 (87) 99 Room Air I/O 10/14/17 10/14/17 10/14/17 10/15/17 10/15/17 10/15/17 07:00 15:00 23:00 07:00 15:00 23:00 Intake Total 651 ml 765 ml 30 ml Output Total 700 ml 500 ml Balance -700 ml 651 ml 265 ml 30 ml Intake Oral 0 ml Packed Cells 400 ml 400 ml FFP 221 ml 225 ml Blood Product IV Normal Saline Flush 30 ml 140 ml 30 ml Output Urine Total 700 ml 500 ml Result Diagram: 10/15/1761210/15/17612 Objective Remarks GENERAL: Well-developed, well-nourished patient in NAD. SKIN: Warm and dry. No rash. Pale HEAD: Normocephalic. Atraumatic. EYES: Pupils equal and round. No scleral icterus. No injection or drainage. ENT: No nasal bleeding or discharge. Mucous membranes pink and moist. NECK: Supple. Trachea midline. CARDIOVASCULAR: Regular rate and rhythm. S1, S2 noted. No murmur appreciated. RESPIRATORY: No accessory muscle use. Clear to auscultation. Breath sounds equal bilaterally. GASTROINTESTINAL: Abdomen soft, non-tender, nondistended. Normoactive bowel sounds x4. MUSCULOSKELETAL: No obvious deformities. Extremities without clubbing, cyanosis , or edema. NEUROLOGICAL: Awake and alert. No obvious cranial nerve deficits. Motor grossly within normal limits. 5/5 muscle strength in bilateral upper and lower extremities. Normal speech. PSYCHIATRIC: Appropriate mood and affect; insight and judgment normal. A/P Problem List: (1) GI bleed ICD Code: K92.2 - Gastrointestinal hemorrhage, unspecified Status: Acute (2) Anemia ICD Code: D64.9 - Anemia, unspecified Status: Acute (3) Warfarin-induced coagulopathy ICD Code: D68.32 - Hemorrhagic disorder due to extrinsic circulating anticoagulants; T45.515A - Adverse effect of anticoagulants, initial encounter Status: Acute Assessment and Plan This is a pleasant 81-year-old male patient with a known medical history of atrial fibrillation on Coumadin, hyperlipidemia, COPD, hypertension who is currently on home hospice due to end-stage COPD presented to the ED with acute lower GI bleed. Acute lower GI bleed History of AVM status post APC Recent hospitalization for GI bleed Hemoglobin 5.0/hematocrit 16.1. After 2 units PRBC, hemoglobin 6.0 today. Reports of large liquid bloody bowel movement last evening. No associated symptoms including dizziness, weakness, shortness of breath or lightheadedness. Status post 2 units FFP. Trend H&H. Continue to monitor for any further bleeding. Monitor vital signs, currently stable. Vitamin K given in ED. INR 1.6 today. Continue Protonix 40 mg twice daily. Continue IV fluids. Monitor for any overload. Consult placed to gastroenterology, appreciate further input and recommendations. Plan for bleeding scan today. Follow. Supplemental O2 as needed, patient on 4 L nasal cannula at home. COPD not in exacerbation, end-stage Patient follows with Dr. Galo in the outpatient setting. Currently on hospice at home. Requires 4 L nasal cannula at home. Continue home duo nebs. Requested hospice and palliative care to come see patient, to reestablish goals. At this time patient stating he wants to be a full code and undergo any needed intervention for anemia. Appreciate input recommendations. Atrial fibrillation, chronic: Continue cardiac telemetry. Monitor for any arrhythmias. Will hold Coumadin for now. Active bleeding. CAD history Hypertension, chronic Hyperlipidemia, chronic Continue home medications. Will hold lisinopril. Continue IV fluids. Chronic kidney disease stage III: Creatinine 1.5. Continue IV fluids. Monitor for overload. Monitor intake and output. History of diabetes, chronic: Accu-Cheks before meals at bedtime, sliding scale , cover as needed. Monitor blood sugar trends. DVT prophylaxis: SCDs. Hold on chemical prophylaxis, active bleeding. Problem Qualifiers (1) GI bleed: Qualified Codes: K92.2 - Gastrointestinal hemorrhage, unspecified (2) Anemia: Qualified Codes: D62 - Acute posthemorrhagic anemia Carolina Pacheco Oct 15, 2017 11:39
--- NOTE | 2017-10-15 14:45 | HHI.GIFU ---
Subjective Remarks Laying comfortably in bed at bedside Last bowel movement yesterday No complaints Objective Vitals I&O Vital Signs Date Time Temp Pulse Resp B/P (MAP) Pulse Ox O2 Delivery O2 Flow Rate FiO2 10/15/17 14:24 97.6 70 18 128/64 99 10/15/17 12:00 97.0 68 18 105/52 (69) 97 10/15/17 09:31 97.3 71 16 109/55 98 10/15/17 08:00 98.1 70 18 114/59 (77) 98 10/15/17 07:27 99 Nasal Cannula 3.00 10/15/17 04:00 97.6 75 18 119/64 (82) 97 10/15/17 03:00 98.2 75 16 101/60 96 10/15/17 00:00 97.6 69 18 100/59 (73) 100 10/14/17 23:15 97.6 69 19 100/59 100 10/14/17 23:14 96.0 73 19 105/57 98 10/14/17 22:39 97.8 72 18 96/58 99 10/14/17 21:48 98.3 93 19 101/55 97 10/14/17 20:00 97.5 70 18 107/55 (72) 95 10/14/17 19:36 100 Nasal Cannula 3.00 10/14/17 16:46 71 18 108/55 100 10/14/17 16:33 97.8 68 18 106/55 100 10/14/17 16:23 97.6 68 16 109/49 10/14/17 16:14 18 10/14/17 16:00 97.1 70 100 10/14/17 14:50 98.1 70 20 115/67 (83) 100 I/O 10/14/17 10/14/17 10/14/17 10/15/17 10/15/17 10/15/17 07:00 15:00 23:00 07:00 15:00 23:00 Intake Total 651 ml 765 ml 830 ml Output Total 700 ml 500 ml Balance -700 ml 651 ml 265 ml 830 ml Intake Oral 0 ml Packed Cells 400 ml 400 ml 400 ml FFP 221 ml 225 ml Blood Product IV Normal Saline Flush 30 ml 140 ml 430 ml Output Urine Total 700 ml 500 ml Laboratory Laboratory Tests Test 10/15/17 06:13 White Blood Count 4.8 Red Blood Count 2.33 Hemoglobin 6.0 Hematocrit 18.8 Mean Corpuscular Volume 80.7 Mean Corpuscular Hemoglobin 25.6 Mean Corpuscular Hemoglobin Concent 31.7 Red Cell Distribution Width 16.0 Platelet Count 271 Mean Platelet Volume 8.2 Neutrophils (%) (Auto) 77.2 Lymphocytes (%) (Auto) 11.2 Monocytes (%) (Auto) 6.7 Eosinophils (%) (Auto) 3.6 Basophils (%) (Auto) 1.3 Neutrophils # (Auto) 3.7 Lymphocytes # (Auto) 0.5 Monocytes # (Auto) 0.3 Eosinophils # (Auto) 0.2 Basophils # (Auto) 0.1 CBC Comment AUTO DIFF Differential Comment AUTO DIFF CONFIRMED Ovalocytes 1+ Prothrombin Time 15.9 Prothromb Time International Ratio 1.6 Blood Urea Nitrogen 71 Creatinine 1.50 Random Glucose 153 Calcium Level 7.9 Sodium Level 140 Potassium Level 4.3 Chloride Level 96 Carbon Dioxide Level 41.1 Anion Gap 3 Estimat Glomerular Filtration Rate 45 Physical Exam NECK: Neck is supple, no JVD CHEST: Chest is clear to auscultation and percussion. CARDIAC: Regular rate and rhythm with no murmur gallop or rubs. ABDOMEN: Soft, nondistended, nontender; no hepatosplenomegaly; bowel sounds are present in all four quadrants. EXTREMITIES: No clubbing, cyanosis, or edema. SKIN: Normal; no rash; no jaundice. PERL DEVELOPER: No focal deficits; alert and oriented times three. Assessment and Plan Assessment: (1) Coumadin toxicity ICD Codes: T45.511A - Poisoning by anticoagulants, accidental (unintentional), initial encounter (2) AVM (arteriovenous malformation) ICD Codes: Q27.30 - Arteriovenous malformation, site unspecified (3) Anemia ICD Codes: D64.9 - Anemia, unspecified (4) GI bleeding ICD Codes: K92.2 - Gastrointestinal hemorrhage, unspecified Plan 1. Acute GI bleeding associated with severe anemia. Bleeding likely lower GI bleeding. Most probable source, AVMs in the GI tract. 2 Coumadin toxicity contributory factor. We will need to correct this more fresh frozen plasma will be given 3. With a significant amount of bleeding we will attempt endoscopy to help reduce the bleeding or 4. Patient may benefit from angiogram to detect the site of GI bleeding and attempt TACE or foam embolization. 5. At the present time would advise to to not restart Coumadin 6. Agree with supportive treatment consisting of blood transfusion and FFP 7. Monitor labs 8. Vitamin K injection IM 20 mg if okay with the hospitalist service Jimmy Lynn MD Oct 15, 2017 14:44
[2017-10-15] MEDS: SODIUM CHLOR 0.9% 1000 ML INJ 1,000 ML IV SCH (16:48)
[2017-10-15 18:17] LABS: HEMATOCRIT 22.4 % (39.0-51.0); HEMOGLOBIN 7.3 GM/DL (13.0-17.0)
--- NOTE | 2017-10-15 18:19 | RADRPT ---
EXAM DATE/TIME: 10/15/2017 15:47 [facility] COMPARISON: No previous studies available for comparison. INDICATIONS : Rectal bleeding. DOSE: 21 mCi Tc99m Ultratag labeled red blood cells IV IMAGIN hrs MEDICAL HISTORY : Hypertension. Chronic obstructive pulmonary disease. Atrial fibrillation. SURGICAL HISTORY : Pacemaker. Appendectomy. Cholecystectomy. ENCOUNTER: Initial ACUITY: 1 day PAIN SCALE: 0/10 LOCATION: Abdomen. TECHNIQUE: Following the modified in vitro labeling of autologous red cells, dynamic continuous images were acqu ired for the specified interval. FINDINGS: BIODISTRIBUTION: There is a very good labeling of red cells without significant uptake in the gastric wall. There is good delineation of the blood pool of the spleen and abdominal vessels. BLEEDING: No episodes of active GI bleeding are observed during specified interval of continuous observation. CONCLUSION: Unremarkable examination. No evidence to indicate active bleeding is seen at this time. Jai Silva MD on October 15, 2017 at 18:16 Board Certified Radiologist. This report was verified electronically.
[2017-10-15 18:28] LABS: INTERNATIONAL NORMALIZED RATIO 1.4 RATIO
[2017-10-15] MEDS: CHOLECALCIFEROL (VIT D3) 5000 UNIT CAP PO SCH (20:50)
[2017-10-15] MEDS: FINASTERIDE 5 MG TAB PO SCH (20:51)
[2017-10-15] MEDS: SODIUM CHLORIDE 0.9% FLUSH 10 ML FLUSH IVF PRN (20:51)
[2017-10-15] MEDS: traZODone HCL 50 MG TAB PO SCH (20:51)
[2017-10-15] MEDS: INSULIN DETEMIR 100 UNITS/ML VIAL SQ SCH (21:23)
[2017-10-16] VITALS (11 sets, daily range): BP systolic 96–118; BP diastolic 48–62; PULSE 68–80; RESP 16–20; TEMP 96–98.9; O2SAT 94–98
[2017-10-16] MEDS: SODIUM CHLOR 0.9% 1000 ML INJ 1,000 ML IV SCH ×2 (00:17→16:40)
[2017-10-16 00:57] LABS: HEMOGLOBIN 6.6 GM/DL (13.0-17.0)
[2017-10-16 07:08] LABS: HEMATOCRIT 23.2 % (39.0-51.0); HEMOGLOBIN 7.7 GM/DL (13.0-17.0); MEAN CELL VOLUME 82.8 FL (80.0-100.0); MEAN CORPUSCULAR HEMOGLOBIN 27.4 PG (27.0-34.0); MEAN CORPUSCULAR HGB CONC 33.1 % (32.0-36.0); MEAN PLATELET VOLUME 8.2 FL (7.0-11.0); PLATELET COUNT 209 TH/MM3 (150-450); RED CELL DISTRIBUTION WIDTH 15.1 % (11.6-17.2); WHITE BLOOD COUNT 4.9 TH/MM3 (4.0-11.0)
[2017-10-16 07:21] LABS: ALBUMIN 2.7 GM/DL (3.4-5.0); BICARBONATE 39.3 MEQ/L (21.0-32.0); BLOOD UREA NITROGEN 77 MG/DL (7-18); GLUCOSE,RANDOM 202 MG/DL (74-106)
[2017-10-16 07:24] LABS: ALT (GPT) 17 U/L (12-78); AST (GOT) 7 U/L (15-37); GLOMERULAR FILTRATION RATE 39 ML/MIN (>89)
[2017-10-16 07:25] LABS: TOTAL PROTEIN 5.7 GM/DL (6.4-8.2)
[2017-10-16 07:27] LABS: ALKALINE PHOSPHATASE 42 U/L (45-117)
[2017-10-16] MEDS: RESP: ALBUTEROL 2.5 MG/IPRATROPIUM 0.5 MG NEB (SCH) NEB ×3 (07:31→19:18)
[2017-10-16 07:35] LABS: CHLORIDE 96 MEQ/L (98-107); SODIUM (NA) 141 MEQ/L (136-145)
[2017-10-16] MEDS: INSULIN ASPART SUPPLEMENTAL SCALE SQ SCH ×4 (08:00→20:54)
[2017-10-16] MEDS: PANTOPRAZOLE SODIUM 40 MG VIAL IV PUSH SCH ×2 (08:31→20:56)
[2017-10-16] MEDS: GABAPENTIN 300 MG CAP PO SCH ×2 (08:31→20:55)
[2017-10-16] MEDS: TORSEMIDE 20 MG TAB PO SCH ×2 (08:32→20:56)
[2017-10-16] MEDS: DIGOXIN 0.125 MG TAB PO SCH (08:32)
[2017-10-16] MEDS: ATORVASTATIN 40 MG TAB PO SCH (08:32)
[2017-10-16] MEDS: NEBIVOLOL 10 MG TAB PO SCH ×2 (08:32→20:55)
[2017-10-16] MEDS: CYANOCOBALAMIN 100 MCG TAB PO SCH (08:32)
[2017-10-16] MEDS: FLUTICASONE PROPIONATE 50 MCG/ACT 16 GM NASAL SPRAY EACH NARE SCH (09:00)
--- NOTE | 2017-10-16 11:54 | HHI.PR ---
Subjective Remarks Follow-up GI bleed. Patient seen and examined, lying in bed, states he feels more tired. Reports of one positive bowel movement overnight, body and clots present. Hemoglobin improved. 7.7 today. Status post 1 PRBC overnight. Tolerating p.o. diet, denies any nausea or vomiting. Vital signs are stable. Afebrile. Objective Vitals Vital Signs Date Time Temp Pulse Resp B/P (MAP) Pulse Ox O2 Delivery O2 Flow Rate FiO2 10/16/17 08:00 97.1 70 16 113/58 (76) 95 10/16/17 08:00 68 10/16/17 07:33 94 Nasal Cannula 4.00 10/16/17 04:00 98.8 71 20 104/53 (70) 97 10/16/17 02:15 98.8 71 20 104/53 97 10/16/17 02:00 98.9 69 20 115/56 96 10/16/17 00:00 96.0 72 20 96/48 (64) 98 10/16/17 00:00 72 10/15/17 21:48 98.1 70 20 108/55 94 10/15/17 21:33 97.9 72 20 106/52 95 10/15/17 20:00 69 10/15/17 20:00 96.4 70 20 112/59 (76) 98 10/15/17 19:47 98 Nasal Cannula 4.00 10/15/17 18:43 96.7 72 20 119/64 100 10/15/17 16:00 98.0 72 16 110/55 (73) 96 10/15/17 14:24 97.6 70 18 128/64 99 10/15/17 12:00 97.0 68 18 105/52 (69) 97 I/O 10/15/17 10/15/17 10/15/17 10/16/17 10/16/17 10/16/17 07:00 15:00 23:00 07:00 15:00 23:00 Intake Total 765 ml 830 ml 2185 ml 872 ml Output Total 500 ml Balance 265 ml 830 ml 2185 ml 872 ml Intake Oral 0 ml 240 ml 240 ml IV Total 875 ml Packed Cells 400 ml 400 ml 400 ml 400 ml FFP 225 ml 250 ml 212 ml Blood Product IV Normal Saline Flush 140 ml 430 ml 420 ml 20 ml Output Urine Total 500 ml # Voids 1 3 # Bowel Movements 0 0 Result Diagram: 10/16/17 0615 10/16/17 0615 Imaging Last Impressions GI Bleed Scan Nuclear Medicine 10/15/17 0000 Signed Impressions: Service Date/Time: Sunday, October 15, 2017 15:47 - CONCLUSION: Unremarkable examination. No evidence to indicate active bleeding is seen at this time. Jai Silva MD Objective Remarks GENERAL: Well-developed, well-nourished patient in NAD. SKIN: Warm and dry. No rash. Pale HEAD: Normocephalic. Atraumatic. EYES: Pupils equal and round. No scleral icterus. No injection or drainage. ENT: No nasal bleeding or discharge. Mucous membranes pink and moist. NECK: Supple. Trachea midline. CARDIOVASCULAR: Regular rate and rhythm. S1, S2 noted. No murmur appreciated. RESPIRATORY: No accessory muscle use. Clear to auscultation. Breath sounds equal bilaterally. GASTROINTESTINAL: Abdomen soft, non-tender, nondistended. Normoactive bowel sounds x4. MUSCULOSKELETAL: No obvious deformities. Extremities without clubbing, cyanosis , or edema. NEUROLOGICAL: Awake and alert. No obvious cranial nerve deficits. Motor grossly within normal limits. 5/5 muscle strength in bilateral upper and lower extremities. Normal speech. PSYCHIATRIC: Appropriate mood and affect; insight and judgment normal. A/P Problem List: (1) GI bleed ICD Code: K92.2 - Gastrointestinal hemorrhage, unspecified Status: Acute (2) Anemia ICD Code: D64.9 - Anemia, unspecified Status: Acute (3) Warfarin-induced coagulopathy ICD Code: D68.32 - Hemorrhagic disorder due to extrinsic circulating anticoagulants; T45.515A - Adverse effect of anticoagulants, initial encounter Status: Acute Assessment and Plan This is a pleasant 81-year-old male patient with a known medical history of atrial fibrillation on Coumadin, hyperlipidemia, COPD, hypertension who is currently on home hospice due to end-stage COPD presented to the ED with acute lower GI bleed. Acute lower GI bleed History of AVM status post APC Recent hospitalization for GI bleed Hemoglobin 5.0/hematocrit 16.1 on presentation. After 5 units PRBC, hemoglobin 7.7 today. Reports of large liquid bloody bowel movement last evening. No associated symptoms including dizziness, weakness, shortness of breath or lightheadedness. Status post 4 units FFP. INR 1.4 today. Trend H&H. Continue to monitor for any further bleeding. Monitor vital signs, currently stable. Vitamin K given in ED. Continue Protonix 40 mg twice daily. Continue IV fluids. Monitor for any overload. Consult placed to gastroenterology, appreciate further input and recommendations. Bleeding scan yesterday showing unremarkable examination. Supplemental O2 as needed, patient on 4 L nasal cannula at home. Plan is for EGD and colonoscopy tomorrow AM. Colyte prep tonight. COPD not in exacerbation, end-stage Patient follows with Dr. Galo in the outpatient setting. Currently on hospice at home. Requires 4 L nasal cannula at home. Continue home duo nebs. Requested hospice and palliative care to come see patient, to reestablish goals. At this time patient stating he wants to be a full code and undergo any needed intervention for anemia. Appreciate input recommendations. Atrial fibrillation, chronic: Continue cardiac telemetry. Monitor for any arrhythmias. Will hold Coumadin for now. Active bleeding. Plan for EGD/ colonoscopy tomorrow. CAD history Hypertension, chronic Hyperlipidemia, chronic Continue home medications. Will hold lisinopril. Continue IV fluids. Chronic kidney disease stage III: Creatinine 1.7. Monitor for overload. Monitor intake and output. History of diabetes, chronic: Accu-Cheks before meals at bedtime, sliding scale , cover as needed. Monitor blood sugar trends. Added Levemir. DVT prophylaxis: SCDs. Hold on chemical prophylaxis, active bleeding. Problem Qualifiers (1) GI bleed: Qualified Codes: K92.2 - Gastrointestinal hemorrhage, unspecified (2) Anemia: Qualified Codes: D62 - Acute posthemorrhagic anemia Carolina Pacheco Oct 16, 2017 11:54
[2017-10-16 12:18] LABS: HEMATOCRIT 23.7 % (39.0-51.0)
--- NOTE | 2017-10-16 12:18 | HHI.GIFU ---
Subjective Remarks Patient sitting in bed comfortably, had some clots and dark blood yesterday hemoglobin still stable no abdominal pain or other GI symptom Objective Vitals I&O Vital Signs Date Time Temp Pulse Resp B/P (MAP) Pulse Ox O2 Delivery O2 Flow Rate FiO2 10/16/17 08:00 97.1 70 16 113/58 (76) 95 10/16/17 08:00 68 10/16/17 07:33 94 Nasal Cannula 4.00 10/16/17 04:00 98.8 71 20 104/53 (70) 97 10/16/17 02:15 98.8 71 20 104/53 97 10/16/17 02:00 98.9 69 20 115/56 96 10/16/17 00:00 96.0 72 20 96/48 (64) 98 10/16/17 00:00 72 10/15/17 21:48 98.1 70 20 108/55 94 10/15/17 21:33 97.9 72 20 106/52 95 10/15/17 20:00 69 10/15/17 20:00 96.4 70 20 112/59 (76) 98 10/15/17 19:47 98 Nasal Cannula 4.00 10/15/17 18:43 96.7 72 20 119/64 100 10/15/17 16:00 98.0 72 16 110/55 (73) 96 10/15/17 14:24 97.6 70 18 128/64 99 I/O 10/15/17 10/15/17 10/15/17 10/16/17 10/16/17 10/16/17 07:00 15:00 23:00 07:00 15:00 23:00 Intake Total 765 ml 830 ml 2185 ml 872 ml Output Total 500 ml Balance 265 ml 830 ml 2185 ml 872 ml Intake Oral 0 ml 240 ml 240 ml IV Total 875 ml Packed Cells 400 ml 400 ml 400 ml 400 ml FFP 225 ml 250 ml 212 ml Blood Product IV Normal Saline Flush 140 ml 430 ml 420 ml 20 ml Output Urine Total 500 ml # Voids 1 3 # Bowel Movements 0 0 Laboratory Laboratory Tests Test 10/15/17 18:04 10/16/17 00:40 10/16/17 06:15 Hemoglobin 7.3 6.6 7.7 Hematocrit 22.4 20.0 23.2 Prothrombin Time 14.0 Prothromb Time International Ratio 1.4 White Blood Count 4.9 Red Blood Count 2.80 Mean Corpuscular Volume 82.8 Mean Corpuscular Hemoglobin 27.4 Mean Corpuscular Hemoglobin Concent 33.1 Red Cell Distribution Width 15.1 Platelet Count 209 Mean Platelet Volume 8.2 Blood Urea Nitrogen 77 Creatinine 1.70 Random Glucose 202 Total Protein 5.7 Albumin 2.7 Calcium Level 8.0 Alkaline Phosphatase 42 Aspartate Amino Transf (AST/SGOT) 7 Alanine Aminotransferase (ALT/SGPT) 17 Total Bilirubin 1.0 Sodium Level 141 Potassium Level 4.0 Chloride Level 96 Carbon Dioxide Level 39.3 Anion Gap 6 Estimat Glomerular Filtration Rate 39 Physical Exam NECK: Neck is supple, no JVD CHEST: Chest is clear to auscultation and percussion. CARDIAC: Regular rate and rhythm with no murmur gallop or rubs. ABDOMEN: Soft, nondistended, nontender; no hepatosplenomegaly; bowel sounds are present in all four quadrants. EXTREMITIES: No clubbing, cyanosis, or edema. SKIN: Normal; no rash; no jaundice. 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 Assessment and Plan Assessment: (1) Coumadin toxicity ICD Codes: T45.511A - Poisoning by anticoagulants, accidental (unintentional), initial encounter (2) AVM (arteriovenous malformation) ICD Codes: Q27.30 - Arteriovenous malformation, site unspecified (3) Anemia ICD Codes: D64.9 - Anemia, unspecified (4) GI bleeding ICD Codes: K92.2 - Gastrointestinal hemorrhage, unspecified Plan 1. Acute GI bleeding associated with severe anemia. Bleeding likely lower GI bleeding. Most probable source, AVMs in the GI tract. 2 Coumadin toxicity contributory factor. We will need to correct this more fresh frozen plasma will be given 3. With a significant amount of bleeding we will attempt endoscopy to help reduce the bleeding or 4. Patient may benefit from angiogram to detect the site of GI bleeding and attempt TACE or foam embolization. 5. At the present time would advise to to not restart Coumadin 6. Agree with supportive treatment consisting of blood transfusion and FFP 7. Monitor labs 8. Vitamin K injection IM 20 mg if okay with the hospitalist service patient still having some bleeding, hemoglobin stable, INR is stable now, Plan for upper endoscopy and colonoscopy tomorrow We will start prep Clear liquid Obtain consent Monitor H&H Kell Thomas MD Oct 16, 2017 12:18
[2017-10-16] MEDS ORDERED: FUROSEMIDE 20 MG/2 ML VIAL IV PUSH ONE (13:30)
[2017-10-16] MEDS ORDERED: PEG (High)/E-LYTE SOLN 4000 ML BTL PO ONE (16:00)
[2017-10-16 18:11] LABS: HEMATOCRIT 24.4 % (39.0-51.0); HEMOGLOBIN 7.7 GM/DL (13.0-17.0)
[2017-10-16] MEDS: SODIUM CHLORIDE 0.9% FLUSH 10 ML FLUSH IVF PRN (20:54)
[2017-10-16] MEDS: INSULIN DETEMIR 100 UNITS/ML VIAL SQ SCH (20:54)
[2017-10-16] MEDS: CHOLECALCIFEROL (VIT D3) 5000 UNIT CAP PO SCH (20:55)
[2017-10-16] MEDS: traZODone HCL 50 MG TAB PO SCH (20:56)
[2017-10-16] MEDS: FINASTERIDE 5 MG TAB PO SCH (20:56)
[2017-10-17] VITALS (7 sets, daily range): BP systolic 102–125; BP diastolic 52–72; PULSE 67–72; RESP 16–20; TEMP 95.4–97.7; O2SAT 92–98
[2017-10-17] MEDS: SODIUM CHLOR 0.9% 1000 ML INJ 1,000 ML IV SCH ×2 (02:10→22:11)
[2017-10-17] MEDS: RESP: ALBUTEROL 2.5 MG/IPRATROPIUM 0.5 MG NEB (SCH) NEB ×3 (07:12→19:55)
[2017-10-17] MEDS ORDERED: LACTATED RINGER'S 1000 ML IV PRN (07:30)
[2017-10-17] MEDS ORDERED: POVIDONE IODINE 5% (ANTISEPSIS KIT) 4 APPLICATIONS EACH NARE PRN (07:30)
[2017-10-17] MEDS ORDERED: METOPROLOL TARTRATE 25 MG TAB PO PRN (07:30)
[2017-10-17] MEDS ORDERED: SODIUM CHLORID 0.9% 500 ML IV PRN (07:30)
[2017-10-17] MEDS ORDERED: CHLORHEXIDINE GLUCONATE 2 % 1 PACK (2 CLOTHS) TOPICAL PRN (07:30)
--- NOTE | 2017-10-17 07:52 | GIPROC ---
[address], [address] EGD PROCEDURE REPORT EXAM DATE: 10/17/2017 PATIENT NAME: Denys Sanon MR #: [id number] BIRTHDATE: 1935 ATTENDING: Tiny Chaves MD ORDER #: [id number] MANAGER PHYSICAL: Andrew Vee and Julia Perez STATUS: inpatient INDICATIONS: The patient is a 81 yr old male here for an EGD due to anemia gi bleeding PROCEDURE PERFORMED: EGD w/ biopsy MEDICATIONS: None and Per Anesthesia. TOPICAL ANESTHETIC: none CONSENT: The patient understands the risks and benefits of the procedure and understands that these risks include, but are not limited to: sedation, allergic reaction, infection, perforation and/or bleeding. Alternative means of evaluation and treatment include, among others: physical exam, x-rays, and/or surgical intervention. The patient elects to proceed with this endoscopic procedure. medical equipment was checked for proper function. Hand hygiene and appropriate measures for infection prevention was taken. After the risks, benefits and alternatives of the procedure were thoroughly explained, Informed consent was verified, confirmed and timeout was successfully executed by the treatment team. The patient was anesthetized with topical anesthesia and the EC-[id number] (Pedi C) endoscope was introduced through the mouth and advanced to the second portion of the duodenum. Retroflexed views revealed a hiatal hernia The gastroscope was then slowly withdrawn and removed. Normal duodenum-biopsy nodule antrum-biopsy esophagitis distal esophagus-Eckert's -biopsy, NBI scope used. ADVERSE EVENTS: There were no complications. IMPRESSIONS: 1. Normal duodenum-biopsy nodule antrum-biopsy esophagitis distal esophagus-Eckert's -biopsy, NBI scope used 2. Retroflexed views revealed a hiatal hernia RECOMMENDATIONS: 1. Await biopsy results. Biopsy results will not be ready for 7-10 days. If you don't hear from us in two weeks, call our office for biopsy results. 2. Anti-reflux regimen 3. Continue PPI PATIENT CONDITION: stable DISPOSITION: Inpatient REPEAT EXAM: Return 3 years EGD Tiny Chaves MD eSigned: Tiny Chaves MD 10/17/2017 7:51 AM cc: PATIENT NAME: Denys Sanon MR#: [id number]
--- NOTE | 2017-10-17 07:56 | GIPROC ---
[facility] [address] [place] [address], [address] COLONOSCOPY PROCEDURE REPORT EXAM DATE: 10/17/2017 PATIENT NAME: Denys Sanon MR #: [id number] BIRTHDATE: 1935 ENDOSCOPIST: Tiny Chaves MD ORDER #: [id number] BARK FITTER: Andrew Vee and Julia Perez STATUS: inpatient INDICATIONS: The patient is a 81 yr old male here for a colonoscopy due to anemia, gi bleeding PROCEDURE PERFORMED: Colonoscopy with GI bleeding control Colonoscopy with polypectomy Colonoscopy with biopsy MEDICATIONS: None and Per Anesthesia. PREP QUALITY: 30 % obscured PREP TYPE:Other: ESTIMATED BLOOD LOSS: None CONSENT: The patient understands the risks and benefits of the procedure and understands that these risks include, but are not limited to: sedation, allergic reaction, infection, perforation and/or bleeding. Alternative means of evaluation and treatment include, among others: physical exam, x-rays, and/or surgical intervention. The patient elects to proceed with this endoscopic procedure. medical equipment was checked for proper function. Hand hygiene and appropriate measures for infection prevention was taken. After the risks, benefits and alternatives of the procedure were thoroughly explained, Informed consent was verified, confirmed and timeout was successfully executed by the treatment team. A digital exam revealed external hemorrhoids The Pentax EC-[id number] endoscope was introduced through the anus and advanced to the cecum, which was identified by both the appendix and ileocecal valve. The instrument was then slowly withdrawn as the colon was fully examined. COLON FINDINGS: Diverticulosis sigmoid,descending poor pre-agressive washing done -semisolid stool throughout colon small beed in cecu-posible AVM-a clip was applied, no firther bleeding two poyps sessile descending two-6 mm each-cold snare polypectomy with complete removal polyp sessile at hepatic flexure- 5 mm-cold snare polypectomy with complete removal polyp diminutive in rectum-4 mm-cold biopsy with complete emoval-some bleeding from biopsy site, 2 clips appied-no further bleeding EBL-5 cc. Retroflexed views revealed internal hemorrhoids and Retroflexed views revealed small internal hemorrhoids The scope was then completely withdrawn from the patient and the procedure terminated. PROCEDURE WITHDRAWAL TIME:9minutes ADVERSE EVENTS: There were no complications. IMPRESSIONS: 1. Diverticulosis sigmoid,descending poor pre-agressive washing done -semisolid stool throughout colon small beed in cecu-posible AVM-a clip was applied, no firther bleeding two poyps sessile descending two-6 mm each-cold snare polypectomy with complete removal polyp sessile at hepatic flexure- 5 mm-cold snare polypectomy with complete removal polyp diminutive in rectum-4 mm-cold biopsy with complete emoval-some bleeding from biopsy site, 2 clips appied-no further bleeding EBL-5 cc 2. Retroflexed views revealed internal hemorrhoids 3. Retroflexed views revealed small internal hemorrhoids 4. Revealed external hemorrhoids RECOMMENDATIONS: 1. Await biopsy results. Biopsy results will not be ready for 7-10 days. If you don't hear from us in two weeks, call our office for results. 2. Benefiber 2 tsp daily 3. Probiotics from any C or health food store 4. Resume diet sbft if negative capsule endoscopy op transfuse prn ok to resume anticoagulation from gi point in 1-2 days RECALL: Return 3 months Colonoscopy Tiny Chaves MD eSigned: Tiny Chaves MD 10/17/2017 7:56 AM cc: PATIENT NAME: Denys Sanon MR#: [id number]
[2017-10-17] MEDS: INSULIN ASPART SUPPLEMENTAL SCALE SQ SCH ×4 (08:00→22:05)
[2017-10-17] MEDS: NEBIVOLOL 10 MG TAB PO SCH ×2 (08:51→22:09)
[2017-10-17] MEDS: GABAPENTIN 300 MG CAP PO SCH ×2 (08:51→22:09)
[2017-10-17] MEDS: DIGOXIN 0.125 MG TAB PO SCH (08:51)
[2017-10-17] MEDS: PANTOPRAZOLE SODIUM 40 MG VIAL IV PUSH SCH ×2 (08:51→22:10)
[2017-10-17] MEDS: CYANOCOBALAMIN 100 MCG TAB PO SCH (08:52)
[2017-10-17] MEDS: TORSEMIDE 20 MG TAB PO SCH ×2 (08:52→22:10)
[2017-10-17] MEDS: FLUTICASONE PROPIONATE 50 MCG/ACT 16 GM NASAL SPRAY EACH NARE SCH (09:00)
[2017-10-17] MEDS: ATORVASTATIN 40 MG TAB PO SCH (09:02)
--- NOTE | 2017-10-17 10:14 | HHI.PR ---
Subjective Remarks Follow-up GI bleed. Patient seen and examined, lying in bed status post EGD and colonoscopy. EGD showing esophagitis. Colonoscopy with AVM and multiple polyps. Patient denies any changes. States he feels improved, slept well. Vital signs are stable. Denies any abdominal pain, nausea or vomiting. Underwent small bowel series, awaiting report. Objective Vitals Vital Signs Date Time Temp Pulse Resp B/P (MAP) Pulse Ox O2 Delivery O2 Flow Rate FiO2 10/17/17 08:30 95.4 69 20 120/72 (88) 98 10/17/17 08:15 70 15 119/67 (84) 95 10/17/17 08:00 70 15 110/58 (75) 95 10/17/17 07:45 97.8 70 15 109/59 (76) 95 10/17/17 06:47 Nasal Cannula 4 10/17/17 06:47 97.8 70 20 124/74 (91) 99 10/17/17 04:00 97.5 70 18 102/52 (69) 97 10/17/17 00:00 96.9 72 16 107/52 (70) 93 10/16/17 20:00 69 10/16/17 20:00 97 Nasal Cannula 4.00 10/16/17 20:00 97.0 69 20 110/54 (72) 97 10/16/17 19:18 98 Nasal Cannula 4.00 10/16/17 16:00 98.2 70 18 110/53 (72) 95 10/16/17 15:00 72 10/16/17 12:00 98.2 80 16 118/62 (80) 95 I/O 10/16/17 10/16/17 10/16/17 10/17/17 10/17/17 10/17/17 07:00 15:00 23:00 07:00 15:00 23:00 Intake Total 872 ml 966 ml 100 ml Output Total 600 ml Balance 872 ml 366 ml 100 ml Intake Oral 240 ml 0 ml IV Total 966 ml Packed Cells 400 ml FFP 212 ml Blood Product IV Normal Saline Flush 20 ml Other 100 ml Output Urine Total 600 ml # Voids 3 # Bowel Movements 0 7 Result Diagram: 10/16/17 1754 10/16/17 0615 Imaging Last Impressions GI Bleed Scan Nuclear Medicine 10/15/17 0000 Signed Impressions: Service Date/Time: Sunday, October 15, 2017 15:47 - CONCLUSION: Unremarkable examination. No evidence to indicate active bleeding is seen at this time. Jai Silva MD Objective Remarks GENERAL: Well-developed, well-nourished patient in NAD. SKIN: Warm and dry. No rash. Pale HEAD: Normocephalic. Atraumatic. EYES: Pupils equal and round. No scleral icterus. No injection or drainage. ENT: No nasal bleeding or discharge. Mucous membranes pink and moist. NECK: Supple. Trachea midline. CARDIOVASCULAR: Regular rate and rhythm. S1, S2 noted. No murmur appreciated. RESPIRATORY: No accessory muscle use. Clear to auscultation. Breath sounds equal bilaterally. GASTROINTESTINAL: Abdomen soft, non-tender, nondistended. Normoactive bowel sounds x4. MUSCULOSKELETAL: No obvious deformities. Extremities without clubbing, cyanosis , or edema. NEUROLOGICAL: Awake and alert. No obvious cranial nerve deficits. Motor grossly within normal limits. 5/5 muscle strength in bilateral upper and lower extremities. Normal speech. PSYCHIATRIC: Appropriate mood and affect; insight and judgment normal. A/P Problem List: (1) GI bleed ICD Code: K92.2 - Gastrointestinal hemorrhage, unspecified Status: Acute (2) Anemia ICD Code: D64.9 - Anemia, unspecified Status: Acute (3) Warfarin-induced coagulopathy ICD Code: D68.32 - Hemorrhagic disorder due to extrinsic circulating anticoagulants; T45.515A - Adverse effect of anticoagulants, initial encounter Status: Acute Assessment and Plan This is a pleasant 81-year-old male patient with a known medical history of atrial fibrillation on Coumadin, hyperlipidemia, COPD, hypertension who is currently on home hospice due to end-stage COPD presented to the ED with acute lower GI bleed. Acute lower GI bleed History of AVM status post APC Recent hospitalization for GI bleed Hemoglobin 5.0/hematocrit 16.1 on presentation. Vitamin K given in ED. 5 units PRBC, Status post 4 units FFP. INR 1.4, hemoglobin 7.7. Awaiting labs today. Follow-up. No associated symptoms including dizziness, weakness, shortness of breath or lightheadedness.. Trend H&H. Continue Protonix 40 mg twice daily. Continue IV fluids. Monitor for any overload. Gastroenterology following, appreciate further input and recommendations. Bleeding scan yesterday showing unremarkable examination. EGD showing esophagitis. Colonoscopy with AVM and multiple polyps. Small bowel series done today, awaiting results. Supplemental O2 as needed, patient on 4 L nasal cannula at home. COPD not in exacerbation, end-stage Patient follows with Dr. Galo in the outpatient setting. Currently on hospice at home. Requires 4 L nasal cannula at home. Continue home duo nebs. Requested hospice and palliative care to come see patient, to reestablish goals. At this time patient stating he wants to be a full code and undergo any needed intervention for anemia. Appreciate input recommendations. Atrial fibrillation, chronic: Continue cardiac telemetry. Monitor for any arrhythmias. Will hold Coumadin for now. OK to resume Coumadin in 1-2 days per GI. CAD history Hypertension, chronic Hyperlipidemia, chronic Continue home medications. Will hold lisinopril. Continue IV fluids. Chronic kidney disease stage III: Creatinine 1.7. Monitor for overload. Monitor intake and output. History of diabetes, chronic: Accu-Cheks before meals at bedtime, sliding scale , cover as needed. Monitor blood sugar trends. Added Levemir. DVT prophylaxis: SCDs. Resume Coumadin 1-2 days[address] Chaves, gastroenterology, who wishes to monitor patient overnight. Small bowel follow-through is normal. Palliative care is here to see patient at this time. Will develop goals. Addressing goals regarding continuing hospice at home. Continue to monitor. 1600 Also spoke with JS Mcgovern from palliative care who stated that patient wishes to be DNR but and patient appear to be in denial regarding prognosis of end stage COPD and 4 L NC O2 requirement. Patient is resending Hospice for home and "wants to get better" despite prognosis. Order placed for HHC and face to face. Discharge Planning When cleared by GI and seen by palliative care, patient discharged with home health care. Problem Qualifiers (1) GI bleed: Qualified Codes: K92.2 - Gastrointestinal hemorrhage, unspecified (2) Anemia: Qualified Codes: D62 - Acute posthemorrhagic anemia Carolina Pacheco Oct 17, 2017 10:14
[2017-10-17] MEDS ORDERED: MAGNESIUM CITRATE SOLN 300 ML BTL PO ONE ×2 (12:00→18:00)
--- NOTE | 2017-10-17 13:16 | RADRPT ---
EXAM DATE/TIME: 10/17/2017 11:29 [facility] COMPARISON: CHEST SINGLE AP, October 06, 2017, 7:27. INDICATIONS : Anemia FLUORO TIME: 0 minutes IMAGE COUNT: Zero fluoroscopic images. CONTRAST: Entero Vu 24% Barium Sulfate (24% w/v, 20% w/w) IMAGING TIME(S): 15 min, 30 min, 45 min, 1 hr, 1.5 hrs MEDICAL HISTORY : Hypertension. Chronic obstructive pulmonary disease. Atrial fibrillation. SURGICAL HISTORY : Pacemaker. Appendectomy. Cholecystectomy. ENCOUNTER: Initial ACUITY: 2 days PAIN SCORE: 0/10 LOCATION: abdomen FINDINGS: 8 views of the abdomen were obtained to follow the course of the oral contrast material through the s mall intestines. The retail shift leader view of the abdomen demonstrates mildly dilated small bowel in the central abdomen measuring up to 4.7 cm. No transition point is present. Cholecystectomy clips are present. T here is a left basilar pleural-based opacity, stable from the prior x-ray. Degenerative changes are p resent throughout the lumbar spine. Small bowel demonstrates a normal fold pattern without abnormal dilatation appreciated. The contrast reaches the colon by 3 hours. No mass or obstructing lesion is identified. CONCLUSION: No small bowel abnormality is identified to explain the patient's anemia. If clinical suspicion remai ns for a small bowel abnormality, consider CT enterography on an outpatient basis. Garrett Orellana MD on October 17, 2017 at 13:08 Board Certified Radiologist. This report was verified electronically.
--- NOTE | 2017-10-17 15:20 | PD.CONS ---
Consult Service Palliative Care Consult Requested By Farooq WEINSTEIN Primary Care Physician Phyllis Moran MD Reason for Consultation a. To assist with evaluation and management of symptoms including: b. To assist medical decision maker(s) with: better understanding of current medical conditions; weighing benefits/burdens of medical treatment options; making medical treatment decisions. HPI History of Present Illness This 81-year-old male presented to the ED on 10/14/17 with complaints of acute lower GI bleed starting that morning. The hospice nurse reported that there was blood all over the house when she got there. Patient denied pain. He denied feeling dizzy or short of breath. Known history of atrial fibrillation, Coumadin, and end-stage COPD, 4 L O2 dependent. Patient previously on [facility] services only for a few weeks, for end-stage COPD. patient express goals for aggressive treatment for acute GI bleed. * ED: Patient subjectively pale. Ordered for 2 units RBCs, 2 units FFP, vitamin K. Admitted for further evaluation and management. Patient requested full CODE STATUS. GI consultation pending. Patient noted with recent hospitalization for GI bleed. * Prior EGD colonoscopy notable for AVMs in stomach and colon treatment with APC. * GI: During hospital course patient continued to have active rectal bleeding denying abdominal pain, hematemesis jaundice or melena or ascites. Denies heartburn, dysphagia, or any other GI complaints. Lung condition contraindication for sedation required for endoscopy, GI considers angiogram to identify site of bleeding, Coumadin remains on hold recommends only treat with aspirin. Supportive treatment with blood, FFP as indicated, serial H&H. * 10/16 still with some bleeding. Hemoglobin stable, INR stable. GI plans for upper endoscopy and colonoscopy on Tuesday. Prep started 10/16. Palliative care consulted to assist with clarification of goals of treatment. * 10/17 EGD: Normal duodenum, esophagitis distal esophagus Eckert's, biopsy obtained. Hiatal hernia. Awaiting biopsy results. Continue PPI. Colonoscopy : Sigmoid diverticulosis ,+still with semi-solid stool throughout colon, cecum possible AVM clip applied no further bleeding, several polyps, polypectomy. Multiple biopsies obtained. Additional clips applied no further bleeding noted. * 10/17 small bowel series completed, results pending. Discharge planning for home, possibly with home health versus hospice. Patient seen in room at bedside. He is awake, mostly oriented though forgetful at times confuses details. Hard of hearing. Explore with patient and recent recurrent hospitalizations and a recent enrollment in hospice. Patient often defers to his to answer questions. They seemed to have limited understanding or possibly acceptance of patient multiple medical conditions. It sounds as if they elicited hospice services at the last discharge because the patient really wanted to get home and ultimately he does not want to be in the hospital however he also still expresses semi-aggressive goals. He indicates he would want to continue transfusions or labs or diagnostics if his condition declined even a from respiratory issue. He wants to be older continue to try to walk and feels like he might be getting stronger. His wants him to be able to walk from room to room at home and doesn't want him to fall anymore. Explore with her that even with restorative rehabilitation the patient will still be at risk for falls and decline however if he elects hospice and no further restorative attempts are made and he will likely continue to grow weaker and decline in the coming weeks to months. Patient and expressing desire to get him home as soon as possible with home health and possibly home health physical therapy if possible. They do request DNR status as he would not want artificial life support or ventilation. Per review of recent hospitalization 10/07/17:( palliative consult at that time ) Patient with multiple hospitalizations during September for GI bleed, anemia, dyspnea. During most recent hospitalization patient treated for CHF exacerbation, COPD. Upon meeting with palliative care they were considering DNR status and considering hospice. Patient and elected to transition patient home with hospice at that time. They were still considering DNR at time of discharge. Function/Cognitive Trajectory Uses a walker at home. 3 hospitalizations September 2017, O2 dependent, 4 L. fairly independent with ADLs and walks short distances with walker prior to this hospitalization though has had some falls and weakness. Review of Systems Constitutional: COMPLAINS OF: Fatigue, DENIES: Fever, Chills, Dizziness, Pain Cardiovascular: COMPLAINS OF: Dyspnea on Exertion, DENIES: Chest pain, Palpitations, Lower Extremity Edema Gastrointestinal: COMPLAINS OF: Bloody stools, DENIES: Abdominal pain, Diarrhea , Nausea, Vomiting, Difficulty Swallowing, Anorexia, Vomiting blood Genitourinary: DENIES: Urinary frequency Musculoskeletal: DENIES: Joint pain Integumentary: DENIES: Rash Neurologic: DENIES: Headache Psychiatric: DENIES: Anxiety Past Family Social History Coded Allergies: MRI PRECAUTION (Verified Allergy, Severe, 10/14/17) Uncoded Allergies: STEROIDS (Adverse Reaction, Mild, 01/10/17) ELEVATED BLOOD SUGAR Past Medical History Atrial fibrillation on Coumadin Anemia Arthritis Anxiety Depression Hyperlipidemia Congestive heart failure End-stage COPD Diabetes BPH Hypertension Sleep apnea . Past Surgical History Arthritis Anemia Atrial fibrillation on Coumadin Anxiety Depression Hyperlipidemia Hypertension End-stage COPD Diabetes BPH Sleep apnea Reported Medications Ativan (Lorazepam) 2 Mg Tab 2 Mg PO Q6H PRN Tylenol-Codeine #3 (Acetaminophen-Codeine) 300-30 mg Tab 1 Tab PO Q4H PRN DO NOT USE THIS MEDICINE IF YOU WILL DRIVE A CAR OR USE A MACHINE, ONLY USE IT WHEN RESTING AT HOME. Walker/Adult/Folding (Device) 1 Mis Mis Ea .ROUTE DIRECTED Oxygen tank (Oxygen) 1 Ea Tank 2 Liter JAKE.CANULA CONTINUOUS Oxygen Concentrator Portable Gaseous 2 L/min via Nasal Cannula Continuous For 99 months Digoxin 0.125 Mg Tab 0.125 Mg PO DAILY Reported Warfarin 2.5 Mg Tab 2.5 Mg PO TUE,TUE,SAT Warfarin 5 Mg Tab 5 Mg PO TUE,TUE,TUE,SUN Fluticasone Nasal [place] 50 Mcg/Act Naspr 50 Mcg EACH NARE DAILY 50 mcg/spray Acarbose 100 Mg Tab 100 Mg PO TID Take with first bite of meal. Lantus Inj (Insulin Glargine) 1,000 Unit/10 Ml Vial 15 Units SQ HS Duoneb (Ipratropium-Albuterol Neb) 0.5-2.5 Mg/3 Ml Neb 3 Ml NEB TID Senna S (Sennosides-Docusate Sodium) 8.6-50 Mg Tab 1 Tab PO DAILY PRN Vitamin D3 (Cholecalciferol) 5,000 Unit Cap 5,000 Units PO HS Trazodone (Trazodone HCl) 50 Mg Tab 50 Mg PO HS Gabapentin 300 Mg Cap 600 Mg PO BID Vitamin B12 (Cyanocobalamin) 100 Mcg Tab 100 Mcg PO DAILY Omeprazole 40 Mg Cap 40 Mg PO BID Atorvastatin (Atorvastatin Calcium) 40 Mg Tab 40 Mg PO DAILY Torsemide 20 Mg Tab 40 Mg PO BID Lisinopril 20 Mg Tab 20 Mg PO DAILY Bystolic (Nebivolol) 10 Mg Tab 10 Mg PO BID Finasteride 5 Mg Tab 5 Mg PO HS . Current Medications Medications (Trade) Dose Ordered Sig/Faviola Route Start Time Stop Time Status Last Admin (NS Flush) 2 ml UNSCH PRN IVF 10/14/17 11:15 10/16/17 20:54 Sodium Chloride 1,000 ml @ 84 mls/hr [id number] IV 10/14/17 17:00 10/17/17 02:10 (D50w (Vial) Inj) 50 ml UNSCH PRN IV PUSH 10/14/17 17:00 (Glucagon Inj) 1 mg UNSCH PRN OTHER 10/14/17 17:00 (NovoLOG SUPPLEMENTAL SCALE) 1 ACHS SLIDING SCALE SQ 10/14/17 17:00 10/17/17 14:27 (Lipitor) 40 mg DAILY PO 10/15/17 09:00 10/17/17 09:02 (Vitamin D3) 5,000 units HS PO 10/14/17 21:00 10/16/17 20:55 (Vitamin B12) 100 mcg DAILY PO 10/15/17 09:00 10/17/17 08:52 (Lanoxin) 0.125 mg DAILY PO 10/15/17 09:00 10/17/17 08:51 (Proscar) 5 mg HS PO 10/14/17 21:00 10/16/17 20:56 (Flonase Jake Spr) 1 spray DAILY EACH NARE 10/15/17 09:00 10/16/17 09:00 (Neurontin) 600 mg BID PO 10/14/17 21:00 10/17/17 08:51 (Duoneb Neb) 1 ampule TID NEB NEB 10/14/17 20:00 10/17/17 14:55 (Bystolic) 10 mg BID PO 10/14/17 21:00 10/17/17 08:51 (Helene-Colace) 1 tab DAILY PRN PO 10/14/17 17:00 (Demadex) 40 mg BID PO 10/14/17 21:00 10/17/17 08:52 (Desyrel) 50 mg HS PO 10/14/17 21:00 10/16/17 20:56 (Protonix Inj) 40 mg BID IV PUSH 10/14/17 21:00 10/17/17 08:51 (Levemir Inj) 8 units HS SQ 10/15/17 21:00 10/16/17 20:54 (Ativan) 2 mg Q6H PRN PO 10/16/17 11:45 Lactated Ringer's 1,000 ml @ 30 mls/hr Q24H PRN IV 10/17/17 07:30 3 07:29 10/17/17 07:00 Sodium Chloride 500 ml @ 30 mls/hr [id number] PRN IV 10/17/17 07:30 10/20/17 07:29 (Lopressor) 25 mg SENIOR JAVASCRIPT ENGINEER PRN PO 10/17/17 07:30 10/20/17 07:29 (Betadine 5% Antisepsis Kit) 1 applic SENIOR JAVASCRIPT ENGINEER PRN EACH NARE 10/17/17 07:30 10/20/17 07:29 (Chlorhexidine 2% Cloth) 3 pack SENIOR JAVASCRIPT ENGINEER PRN TOPICAL 10/17/17 07:30 10/20/17 07:29 (Citroma Liq) 300 ml ONCE ONCE PO 10/17/17 18:00 10/17/17 18:01 (Dulcolax Ec) 10 mg DAILY@18,21 PO 10/17/17 18:00 10/17/17 21:01 Family History Father and mother from old age, he is unsure of cause. Daughter has cancer, COPD. . Substance Use Tobacco: Quit smoking 5 years ago. Alcohol: None Prescription med abuse: None Illicits: None . Psychosocial History x 54 years, lives with his . retired, formerly worked at [employer]. Has 1 daughter who lives out of state in [place] who also has COPD and some type of cancer. . Spiritual/Cultural Factors Anglican. Living Will: Never completed Health Care Surrogate: Never completed Durable Power of Mainframe Developer: Never completed Ethical and Legal Issues Pt partially oriented, may be able to participate in shared decision making with his . She would be appropriate legal proxy [place] statutes, no written advanced directives. . Physical Exam Vital Signs Date Time Temp Pulse Resp B/P (MAP) Pulse Ox O2 Delivery O2 Flow Rate FiO2 10/17/17 13:15 95.7 68 18 121/69 (86) 94 10/17/17 08:30 95.4 69 20 120/72 (88) 98 10/17/17 08:15 70 15 119/67 (84) 95 10/17/17 08:00 70 15 110/58 (75) 95 10/17/17 08:00 98 Nasal Cannula 4.00 10/17/17 07:45 97.8 70 15 109/59 (76) 95 10/17/17 06:47 Nasal Cannula 4 10/17/17 06:47 97.8 70 20 124/74 (91) 99 10/17/17 04:00 97.5 70 18 102/52 (69) 97 10/17/17 00:00 96.9 72 16 107/52 (70) 93 10/16/17 20:00 69 10/16/17 20:00 97 Nasal Cannula 4.00 10/16/17 20:00 97.0 69 20 110/54 (72) 97 10/16/17 19:18 98 Nasal Cannula 4.00 10/16/17 16:00 98.2 70 18 110/53 (72) 95 10/16/17 15:00 72 10/17/17 10/18/17 19:00 07:00 Intake Total 100 ml Output Total 400 ml Balance -300 ml Intake Oral 0 ml Other 100 ml Output Urine Total 400 ml # Voids 1 # Bowel Movements 1 Exam CONSTITUTIONAL/GENERAL: This is an adequately nourished patient, in no apparent distress. TUBES/LINES/DRAINS: PIV UE, NC O2 SKIN: No jaundice, rashes, or lesions. multiple areas ecchymoses on forearms. No wounds seen anteriorly. Skin temperature appropriate. Not diaphoretic. HEAD: Atraumatic. Normocephalic. EYES: Pupils equal and round and reactive. Extraocular motions intact. No scleral icterus. No injection or drainage. Fundi not examined. ENT: Hearing grossly normal. Nose without bleeding or purulent drainage. Throat without visible erythema, exudates, masses, or lesions. NECK: Trachea midline. Supple, nontender. No palpable thyroid enlargement or nodularity. CARDIOVASCULAR: Regular rate and rhythm wit no murmur. Peripheral pulses symmetric. RESPIRATORY/CHEST: Symmetric, unlabored respirations. Clear to auscultation. Breath sounds equal bilaterally. No wheezes, rales, or rhonchi. GASTROINTESTINAL: Abdomen soft, non-tender, nondistended. No palpable masses. Bowel sounds present. GENITOURINARY: Without palpable bladder distension. MUSCULOSKELETAL: Extremities without clubbing, cyanosis, or edema. No joint tenderness or effusion noted. No mottling or clubbing. LYMPHATICS: No palpable cervical or supraclavicular adenopathy. NEUROLOGICAL: Awake and alert , mostly oriented x2-3, forgetful, confuses details at times. Limited insight. Motor and sensory grossly within normal limits. Follows commands. Moves all extremities. PSYCHIATRIC: No obvious anxiety/depression. no apparent hallucinations or other psychotic thought process. Diagnostic Tests Laboratory Laboratory Tests Test 10/15/17 06:13 10/15/17 18:04 10/16/17 00:40 10/16/17 06:15 White Blood Count 4.8 TH/MM3 (4.0-11.0) 4.9 TH/MM3 (4.0-11.0) Red Blood Count 2.33 MIL/MM3 (4.50-5.90) 2.80 MIL/MM3 (4.50-5.90) Hemoglobin 6.0 GM/DL (13.0-17.0) 7.3 GM/DL (13.0-17.0) 6.6 GM/DL (13.0-17.0) 7.7 GM/DL (13.0-17.0) Hematocrit 18.8 % (39.0-51.0) 22.4 % (39.0-51.0) 20.0 % (39.0-51.0) 23.2 % (39.0-51.0) Mean Corpuscular Volume 80.7 FL (80.0-100.0) 82.8 FL (80.0-100.0) Mean Corpuscular Hemoglobin 25.6 PG (27.0-34.0) 27.4 PG (27.0-34.0) Mean Corpuscular Hemoglobin Concent 31.7 % (32.0-36.0) 33.1 % (32.0-36.0) Red Cell Distribution Width 16.0 % (11.6-17.2) 15.1 % (11.6-17.2) Platelet Count 271 TH/MM3 (150-450) 209 TH/MM3 (150-450) Mean Platelet Volume 8.2 FL (7.0-11.0) 8.2 FL (7.0-11.0) Neutrophils (%) (Auto) 77.2 % (16.0-70.0) Lymphocytes (%) (Auto) 11.2 % (9.0-44.0) Monocytes (%) (Auto) 6.7 % (0.0-8.0) Eosinophils (%) (Auto) 3.6 % (0.0-4.0) Basophils (%) (Auto) 1.3 % (0.0-2.0) Neutrophils # (Auto) 3.7 TH/MM3 (1.8-7.7) Lymphocytes # (Auto) 0.5 TH/MM3 (1.0-4.8) Monocytes # (Auto) 0.3 TH/MM3 (0-0.9) Eosinophils # (Auto) 0.2 TH/MM3 (0-0.4) Basophils # (Auto) 0.1 TH/MM3 (0-0.2) CBC Comment AUTO DIFF Differential Comment AUTO DIFF CONFIRMED Ovalocytes 1+ (NORMAL) Prothrombin Time 15.9 SEC (9.8-11.6) 14.0 SEC (9.8-11.6) Prothromb Time International Ratio 1.6 RATIO 1.4 RATIO Blood Urea Nitrogen 71 MG/DL (7-18) 77 MG/DL (7-18) Creatinine 1.50 MG/DL (0.60-1.30) 1.70 MG/DL (0.60-1.30) Random Glucose 153 MG/DL (74-106) 202 MG/DL (74-106) Calcium Level 7.9 MG/DL (8.5-10.1) 8.0 MG/DL (8.5-10.1) Sodium Level 140 MEQ/L (136-145) 141 MEQ/L (136-145) Potassium Level 4.3 MEQ/L (3.5-5.1) 4.0 MEQ/L (3.5-5.1) Chloride Level 96 MEQ/L (98-107) 96 MEQ/L (98-107) Carbon Dioxide Level 41.1 MEQ/L (21.0-32.0) 39.3 MEQ/L (21.0-32.0) Anion Gap 3 MEQ/L (5-15) 6 MEQ/L (5-15) Estimat Glomerular Filtration Rate 45 ML/MIN (>89) 39 ML/MIN (>89) Total Protein 5.7 GM/DL (6.4-8.2) Albumin 2.7 GM/DL (3.4-5.0) Alkaline Phosphatase 42 U/L (45-117) Aspartate Amino Transf (AST/SGOT) 7 U/L (15-37) Alanine Aminotransferase (ALT/SGPT) 17 U/L (12-78) Total Bilirubin 1.0 MG/DL (0.2-1.0) Test 10/16/17 12:08 10/16/17 17:54 Hemoglobin 8.0 GM/DL (13.0-17.0) 7.7 GM/DL (13.0-17.0) Hematocrit 23.7 % (39.0-51.0) 24.4 % (39.0-51.0) Result Diagram: 10/16/17 1754 10/16/17 0615 Patient/Family Conference Family Conference Time (mins): 30 (minutes) Family Conference Location: Bedside Issues Discussed: Met with patient, at bedside discussion included: * Palliative care role, purpose, approach * Additional medical, psychosocial, and spiritual history * Patients general health, functional status, and cognitive changes in the months leading up to the current hospitalization * Patient/family understanding of the current medical problems * Patient/family understanding of prognosis * Patients goals of care as best understood from advance directives and/or conversations and/or values * Current medical treatment options and benefits/burdens of those options * CODE STATUS * Likely scenarios comparing ongoing aggressive care with a transition to comfort measures only; review of hospice role, philosophy, services versus rehabilitation// restorative * Questions answered to the best of my ability * Palliative care contact information provided Patient seen in room at bedside. He is awake, mostly oriented though forgetful at times confuses details. Hard of hearing. Explore with patient and recent recurrent hospitalizations and a recent enrollment in hospice. Patient often defers to his to answer questions. They seemed to have limited understanding or possibly acceptance of patient multiple medical conditions. It sounds as if they elicited hospice services at the last discharge because the patient really wanted to get home and ultimately he does not want to be in the hospital however he also still expresses semi-aggressive goals. He indicates he would want to continue transfusions or labs or diagnostics if his condition declined even a from respiratory issue. He wants to be older continue to try to walk and feels like he might be getting stronger. His wants him to be able to walk from room to room at home and doesn't want him to fall anymore. Explore with her that even with restorative rehabilitation the patient will still be at risk for falls and decline however if he elects hospice and no further restorative attempts are made and he will likely continue to grow weaker and decline in the coming weeks to months. Patient and expressing desire to get him home as soon as possible with home health and possibly home health physical therapy if possible. They do request DNR status as he would not want artificial life support or ventilation. . Assessment and Plan Disease Oriented Problem List: (1) Symptomatic anemia (2) DM (diabetes mellitus) (3) Hypoxia (4) Atrial fibrillation (5) Hypoxemia (6) Congestive heart failure (7) Diabetes (8) Anemia (9) COPD (chronic obstructive pulmonary disease) (10) AVM (arteriovenous malformation) (11) GERD (gastroesophageal reflux disease) (12) GI bleed (13) Warfarin-induced coagulopathy Symptom Scale: Pertinent Non-Medical Issues Psychosocial: x 54 years, lives with his . retired, formerly worked at [employer]. Has 1 daughter who lives out of state in [place] who also has COPD and some type of cancer. Spiritual: Anglican Legal:Pt partially oriented, may be able to participate in shared decision making with his . She would be appropriate legal proxy [place] statutes, no written advanced directives. Ethical issues impacting care: Important Contacts Melania Sanon [phone]/ [phone] . Prognosis This patient was admitted with acute GI bleed. He has multiple chronic medical conditions, including advanced COPD O2 dependent. He is currently stable and may recover from current acute illness but remains at risk for ongoing hospitalizations and complications. Appropriate for hospice if goals were compatible. Code Status: No Code Plan * Legal decision maker:Pt partially oriented, may be able to participate in shared decision making with his . She would be appropriate legal proxy [place], no written advanced directives. * Goals: Patient and expressing desire to get him home as soon as possible with home health and possibly home health physical therapy if possible. They would wish to continue to pursue aggressive treatments otherwise available. They do request DNR status as he would not want artificial life support or ventilation. * CODE STATUS: DNR * SYMPTOMS: --dyspnea- pt denies dyspnea, underlying COPD, O2 dependent, subjectively denies dyspnea "as long as O2 is on" -- weakness- progressive fatigue/weakness, multifactorialCOPD, cardiac disease, GI bleed and anemia; patient wishes to attempt home health physical therapy though refuses rehabilitation placement. Will likely continue to have progressive decline though if goals are aggressive would benefit from inpatient rehabilitation efforts which patient refuses. * Palliative care will continue to follow during hospital course as condition evolves, to assist patient/decision-maker with understanding of medical conditions, weighing benefits/burdens of treatment options, for clarification of goals of treatment. Additionally will assist with any symptoms of palliative concern Thank you for the opportunity to participate in the care of Mr. Sanon. Jazmín An Oct 17, 2017 15:20
--- NOTE | 2017-10-17 15:57 | HHI.FF ---
Face to Face Verification Diagnosis: (1) GERD (gastroesophageal reflux disease) (2) Hyperlipidemia (3) Warfarin-induced coagulopathy (4) GI bleed (5) CHF (congestive heart failure) (6) COPD (chronic obstructive pulmonary disease) (7) AVM (arteriovenous malformation) Physical Therapy Order: Evaluate and Treat, Improve ambulation, Strength and gait training Home Health Nursing Order: Medical education Signs/symptoms of disease process Medication education-adverse effect Nursing assessment with vital signs I have seen patient Denys Sanon on 10/17/17. My clinical findings support the need for the requested home health care services because: Deconditioned w/ increased weakness Limited ability to care for self I certify that my clinical findings support that this patient is homebound because: Impaired cognitive ability/safety Unsteady gait/balance Carolina aPcheco Oct 17, 2017 15:57
[2017-10-17 16:28] LABS: AUTOMATED NEUTROPHIL # 4.7 TH/MM3 (1.8-7.7); BASOPHIL % 0.6 % (0.0-2.0); EOSINOPHIL # 0.2 TH/MM3 (0-0.4); EOSINOPHIL % 4.5 % (0.0-4.0); HEMOGLOBIN 8.3 GM/DL (13.0-17.0); LYMPHOCYTE # 0.3 TH/MM3 (1.0-4.8); MEAN CELL VOLUME 84.4 FL (80.0-100.0); MEAN CORPUSCULAR HGB CONC 30.8 % (32.0-36.0); MEAN PLATELET VOLUME 8.3 FL (7.0-11.0); MONO % 6.3 % (0.0-8.0); MONOCYTE # 0.3 TH/MM3 (0-0.9); NEUT % 82.6 % (16.0-70.0); PLATELET COUNT 261 TH/MM3 (150-450); RED CELL DISTRIBUTION WIDTH 15.7 % (11.6-17.2); WHITE BLOOD COUNT 5.5 TH/MM3 (4.0-11.0)
[2017-10-17 16:36] LABS: CHLORIDE 99 MEQ/L (98-107); SODIUM (NA) 145 MEQ/L (136-145)
[2017-10-17 16:41] LABS: BICARBONATE 40.1 MEQ/L (21.0-32.0); CALCIUM 8.4 MG/DL (8.5-10.1); GLUCOSE,RANDOM 177 MG/DL (74-106)
[2017-10-17 16:42] LABS: BLOOD UREA NITROGEN 68 MG/DL (7-18)
[2017-10-17 17:01] LABS: INTERNATIONAL NORMALIZED RATIO 1.1 RATIO; PROTHROMBIN TIME - PATIENT 11.6 SEC (9.8-11.6)
[2017-10-17 17:02] LABS: ALKALINE PHOSPHATASE 55 U/L (45-117); ALT (GPT) 35 U/L (12-78); AST (GOT) 26 U/L (15-37); GLOMERULAR FILTRATION RATE 45 ML/MIN (>89); TOTAL BILIRUBIN ADULT 0.7 MG/DL (0.2-1.0); TOTAL PROTEIN 6.3 GM/DL (6.4-8.2)
[2017-10-17] MEDS: BISACODYL EC 5 MG TABEC PO SCH ×2 (18:00→20:02)
[2017-10-17] MEDS: INSULIN DETEMIR 100 UNITS/ML VIAL SQ SCH (22:06)
[2017-10-17] MEDS: CHOLECALCIFEROL (VIT D3) 5000 UNIT CAP PO SCH (22:08)
[2017-10-17] MEDS: traZODone HCL 50 MG TAB PO SCH (22:09)
[2017-10-17] MEDS: FINASTERIDE 5 MG TAB PO SCH (22:10)
[2017-10-17] MEDS: SODIUM CHLORIDE 0.9% FLUSH 10 ML FLUSH IVF PRN (22:10)
[2017-10-17] MEDS: LORazepam 2 MG TAB PO PRN (22:15)
[2017-10-18] VITALS (9 sets, daily range): BP systolic 108–127; BP diastolic 53–71; PULSE 53–96; RESP 16–20; TEMP 96.8–98.5; O2SAT 93–96
[2017-10-18] MEDS: LORazepam 2 MG TAB PO PRN ×2 (03:55→09:00)
[2017-10-18] MEDS: SODIUM CHLOR 0.9% 1000 ML INJ 1,000 ML IV SCH (03:56)
[2017-10-18 07:06] LABS: AUTOMATED NEUTROPHIL # 4.3 TH/MM3 (1.8-7.7); BASOPHIL % 0.6 % (0.0-2.0); EOSINOPHIL # 0.2 TH/MM3 (0-0.4); HEMATOCRIT 24.5 % (39.0-51.0); HEMOGLOBIN 7.3 GM/DL (13.0-17.0); LYMPH % 6.5 % (9.0-44.0); LYMPHOCYTE # 0.3 TH/MM3 (1.0-4.8); MEAN CELL VOLUME 84.5 FL (80.0-100.0); MEAN CORPUSCULAR HEMOGLOBIN 25.3 PG (27.0-34.0); MEAN PLATELET VOLUME 8.9 FL (7.0-11.0); MONO % 7.3 % (0.0-8.0); MONOCYTE # 0.4 TH/MM3 (0-0.9); NEUT % 81.6 % (16.0-70.0); PLATELET COUNT 241 TH/MM3 (150-450); RED CELL DISTRIBUTION WIDTH 15.9 % (11.6-17.2); WHITE BLOOD COUNT 5.2 TH/MM3 (4.0-11.0)
[2017-10-18 07:21] LABS: BICARBONATE 39.5 MEQ/L (21.0-32.0); CALCIUM 7.8 MG/DL (8.5-10.1)
[2017-10-18 07:25] LABS: CREATININE 1.4 MG/DL (0.60-1.30)
[2017-10-18] MEDS: RESP: ALBUTEROL 2.5 MG/IPRATROPIUM 0.5 MG NEB (SCH) NEB ×2 (07:48→13:36)
[2017-10-18] MEDS: INSULIN ASPART SUPPLEMENTAL SCALE SQ SCH ×3 (08:00→18:42)
[2017-10-18] MEDS: TORSEMIDE 20 MG TAB PO SCH (08:53)
[2017-10-18] MEDS: CYANOCOBALAMIN 100 MCG TAB PO SCH (08:53)
[2017-10-18] MEDS: NEBIVOLOL 10 MG TAB PO SCH (08:53)
[2017-10-18] MEDS: ATORVASTATIN 40 MG TAB PO SCH (08:53)
[2017-10-18] MEDS: PANTOPRAZOLE SODIUM 40 MG VIAL IV PUSH SCH (08:53)
[2017-10-18] MEDS: DIGOXIN 0.125 MG TAB PO SCH (08:54)
[2017-10-18] MEDS: GABAPENTIN 300 MG CAP PO SCH (08:54)
[2017-10-18] MEDS ORDERED: ACETAMINOPHEN 325 MG TAB PO PRN (09:45)
[2017-10-18] MEDS ORDERED: SODIUM CHLOR 0.9% 250 ML INJ 250 ML IV ONE (09:45)
[2017-10-18] MEDS ORDERED: diphenhydrAMINE HCL 25 MG CAP PO PRN (09:45)
[2017-10-18] MEDS ORDERED: PROPOFOL 200 MG/20 ML AMP IV ONE (12:00)
--- NOTE | 2017-10-18 13:17 | HHI.DS ---
Discharge Summary Admission Date Oct 14, 2017 at 12:38 Discharge Date: Oct 18, 2017 Admitting Diagnosis Anemia, GI bleed, warfarin-induced coagulopathy (1) GI bleed ICD Code: K92.2 - Gastrointestinal hemorrhage, unspecified Status: Acute (2) Anemia ICD Code: D64.9 - Anemia, unspecified Status: Acute (3) Warfarin-induced coagulopathy ICD Code: D68.32 - Hemorrhagic disorder due to extrinsic circulating anticoagulants; T45.515A - Adverse effect of anticoagulants, initial encounter Status: Acute Procedures COLONOSCOPY IMPRESSIONS: 1. Diverticulosis sigmoid,descending poor pre-agressive washing done -semisolid stool throughout colon small beed in cecu-posible AVM-a clip was applied, no firther bleeding two poyps sessile descending two-6 mm each-cold snare polypectomy with complete removal polyp sessile at hepatic flexure- 5 mm-cold snare polypectomy with complete removal polyp diminutive in rectum-4 mm-cold biopsy with complete emoval-some bleeding from biopsy site, 2 clips appied-no further bleeding EBL-5 cc 2. Retroflexed views revealed internal hemorrhoids 3. Retroflexed views revealed small internal hemorrhoids 4. Revealed external hemorrhoids EGD IMPRESSIONS: 1. Normal duodenum-biopsy nodule antrum-biopsy esophagitis distal esophagus-Eckert's -biopsy, NBI scope used 2. Retroflexed views revealed a hiatal hernia Brief History - From Admission This is a pleasant 81-year-old male patient with a known medical history of atrial fibrillation on Coumadin, hyperlipidemia, COPD, hypertension who is currently on home hospice due to end-stage COPD presented to the ED with acute lower GI bleed. Patient states that he woke this morning, went to the restroom and had a massive bowel movement that was liquid and blood. He has been taking Coumadin for chronic atrial fibrillation, INR is therapeutic 2.9. 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 Was discharged home with hemoglobin and hematocrit at baseline, no further active bleeding and orders to follow-up with hematology and GI. No reports of patient following up with GI. Patient follows with Dr. Galo, pulmonology. PCP is Dr. Moran. Cardiology Dr. Ramirez. Patient has been on Hospice for a week or so due to end stage COPD, although patient desires to get better and receive blood transfusions and intervention if possible. CBC/BMP: 10/18/17 0505 10/18/17 0505 Significant Findings Laboratory Tests Test 10/15/17 18:04 10/16/17 00:40 10/16/17 06:15 10/16/17 12:08 Hemoglobin 7.3 GM/DL (13.0-17.0) 6.6 GM/DL (13.0-17.0) 7.7 GM/DL (13.0-17.0) 8.0 GM/DL (13.0-17.0) Hematocrit 22.4 % (39.0-51.0) 20.0 % (39.0-51.0) 23.2 % (39.0-51.0) 23.7 % (39.0-51.0) Prothrombin Time 14.0 SEC (9.8-11.6) Red Blood Count 2.80 MIL/MM3 (4.50-5.90) Blood Urea Nitrogen 77 MG/DL (7-18) Creatinine 1.70 MG/DL (0.60-1.30) Random Glucose 202 MG/DL (74-106) Total Protein 5.7 GM/DL (6.4-8.2) Albumin 2.7 GM/DL (3.4-5.0) Calcium Level 8.0 MG/DL (8.5-10.1) Alkaline Phosphatase 42 U/L (45-117) Aspartate Amino Transf (AST/SGOT) 7 U/L (15-37) Chloride Level 96 MEQ/L (98-107) Carbon Dioxide Level 39.3 MEQ/L (21.0-32.0) Estimat Glomerular Filtration Rate 39 ML/MIN (>89) Test 10/16/17 17:54 10/17/17 16:15 10/18/17 05:05 Hemoglobin 7.7 GM/DL (13.0-17.0) 8.3 GM/DL (13.0-17.0) 7.3 GM/DL (13.0-17.0) Hematocrit 24.4 % (39.0-51.0) 27.0 % (39.0-51.0) 24.5 % (39.0-51.0) Red Blood Count 3.20 MIL/MM3 (4.50-5.90) 2.90 MIL/MM3 (4.50-5.90) Mean Corpuscular Hemoglobin 26.0 PG (27.0-34.0) 25.3 PG (27.0-34.0) Mean Corpuscular Hemoglobin Concent 30.8 % (32.0-36.0) 30.0 % (32.0-36.0) Neutrophils (%) (Auto) 82.6 % (16.0-70.0) 81.6 % (16.0-70.0) Lymphocytes (%) (Auto) 6.0 % (9.0-44.0) 6.5 % (9.0-44.0) Eosinophils (%) (Auto) 4.5 % (0.0-4.0) Lymphocytes # (Auto) 0.3 TH/MM3 (1.0-4.8) 0.3 TH/MM3 (1.0-4.8) Blood Urea Nitrogen 68 MG/DL (7-18) 65 MG/DL (7-18) Creatinine 1.50 MG/DL (0.60-1.30) 1.40 MG/DL (0.60-1.30) Random Glucose 177 MG/DL (74-106) 142 MG/DL (74-106) Total Protein 6.3 GM/DL (6.4-8.2) Albumin 3.0 GM/DL (3.4-5.0) Calcium Level 8.4 MG/DL (8.5-10.1) 7.8 MG/DL (8.5-10.1) Carbon Dioxide Level 40.1 MEQ/L (21.0-32.0) 39.5 MEQ/L (21.0-32.0) Estimat Glomerular Filtration Rate 45 ML/MIN (>89) 49 ML/MIN (>89) Anion Gap 4 MEQ/L (5-15) Imaging Last Impressions Small Bowel X-Ray 10/17/17 0000 Signed Impressions: Service Date/Time: Tuesday, October 17, 2017 11:29 - CONCLUSION: No small bowel abnormality is identified to explain the patient's anemia. If clinical suspicion remains for a small bowel abnormality, consider CT enterography on an outpatient basis. Garrett Orellana MD GI Bleed Scan Nuclear Medicine 10/15/17 0000 Signed Impressions: Service Date/Time: Sunday, October 15, 2017 15:47 - CONCLUSION: Unremarkable examination. No evidence to indicate active bleeding is seen at this time. Jai Silva MD PE at Discharge GENERAL: Well-developed, well-nourished patient in NAD. SKIN: Warm and dry. No rash. Pale HEAD: Normocephalic. Atraumatic. EYES: Pupils equal and round. No scleral icterus. No injection or drainage. ENT: No nasal bleeding or discharge. Mucous membranes pink and moist. NECK: Supple. Trachea midline. CARDIOVASCULAR: Regular rate and rhythm. S1, S2 noted. No murmur appreciated. RESPIRATORY: No accessory muscle use. Clear to auscultation. Breath sounds equal bilaterally. GASTROINTESTINAL: Abdomen soft, non-tender, nondistended. Normoactive bowel sounds x4. MUSCULOSKELETAL: No obvious deformities. Extremities without clubbing, cyanosis , or edema. NEUROLOGICAL: Awake and alert. No obvious cranial nerve deficits. Motor grossly within normal limits. 5/5 muscle strength in bilateral upper and lower extremities. Normal speech. PSYCHIATRIC: Appropriate mood and affect; insight and judgment normal. Hospital Course 81-year-old male with known history of atrial fibrillation, hyperlipidemia, COPD , hypertension who is currently on home hospice due to end-stage COPD who presented to the emergency department because of lower GI bleed. Patient woke up on 10/14/17 and went to the restroom and had a massive bowel movement which was liquid and bloody. The patient came to the emergency department for evaluation and recommended admission to the hospital. Patient was on Coumadin which had been held. Patient was given vitamin K and fresh frozen plasma to reverse anticoagulation. Patient was transfused 5 units of packed red blood cells during his stay in the hospital. Patient did undergo endoscopy with GI and was found to have esophagitis, possible Eckert's esophagus. There is diverticulosis, possible AVM that was clipped. Multiple polyps. Patient did undergo small bowel evaluation which was unremarkable. Was recommended that the patient may need pill endoscopy upon discharge and follow-up. Patient clinically improved. Palliative care was consulted for evaluation. At this time patient is a DO NOT RESUSCITATE, however patient does not want to go home on hospice. Patient would prefer to go home with home health care in the may be reevaluate hospice in the future. Patient's hemoglobin has been steady between 7.3 and 8.0. We'll transfuse 1 more unit of packed red blood cells prior to discharge. He was also indicated by GI that the patient may resume Coumadin in 1-2 days. Case management consulted for home health care. Will require home health care to manage PT/INR once discharged. We'll need conservative management of patient's anticoagulation secondary the patient's recent GI bleed. Will recommend keep an INR between 2.0 and 3.0. Home health care should collaborate with the patient's primary medical doctor Dr. Moran for management of his PT/INR. Patient clinical stable this time. Will plan discharge after transfusion today. Pt Condition on Discharge: Stable Discharge Disposition: Hospice/ Home Discharge Time: > 30 minutes Discharge Instructions DIET: Follow Instructions for: As Tolerated, No Restrictions Activities you can perform: Regular-No Restrictions Follow up Referrals: Gastroenterology - 1 Week PCP Follow-up - 1 Week Continued Medications: Acarbose (Acarbose) 100 Mg Tab 100 MG PO TID for Blood Sugar Management, #90 TAB 0 Refills Take with first bite of meal. Atorvastatin (Atorvastatin) 40 Mg Tab 40 MG PO DAILY for Cholesterol Management, #30 TAB 0 Refills Cholecalciferol (Vitamin D3) 5,000 Unit Cap 5000 UNITS PO HS for Nutritional Supplement, #30 CAP 0 Refills Cyanocobalamin (Vitamin B12) 100 Mcg Tab 100 MCG PO DAILY, #1 BOTTLE Digoxin (Digoxin) 0.125 Mg Tab 0.125 MG PO DAILY for Regulate Heart Beat, #30 TAB 0 Refills Finasteride (Finasteride) 5 Mg Tab 5 MG PO HS for Manage Prostate Problems, #30 TAB 0 Refills Do not crush. Fluticasone Nasal [place] (Fluticasone Nasal [place]le) 50 Mcg/Act Naspr 50 MCG EACH NARE DAILY for Allergy Management, #1 BOTTLE 0 Refills 50 mcg/spray Gabapentin (Gabapentin) 300 Mg Cap 600 MG PO BID, #90 CAP 0 Refills Insulin Glargine Inj (Lantus Inj) 1,000 Unit/10 Ml Vial 15 UNITS SQ HS for Blood Sugar Management, VIAL 0 Refills Ipratropium-Albuterol Neb (Duoneb) 0.5-2.5 Mg/3 Ml Neb 3 ML NEB TID for Shortness of Breath, #30 NEBULE 0 Refills Lorazepam (Ativan) 2 Mg Tab 2 MG PO Q6H PRN for ANXIETY, #10 TAB 0 Refills Nebivolol (Bystolic) 10 Mg Tab 10 MG PO BID for Blood Pressure Management, #30 TAB 0 Refills Omeprazole (Omeprazole) 40 Mg Cap 40 MG PO BID, #30 CAP 0 Refills Oxygen tank (Oxygen tank) 1 Ea Tank 2 LITER JAKE.CANULA CONTINUOUS for HYPOXEMIA PREVENTION, #4 CYLINDER Oxygen Concentrator Portable Gaseous 2 L/min via Nasal Cannula Continuous For 99 months Sennosides-Docusate Sodium (Senna S) 8.6-50 Mg Tab 1 TAB PO DAILY PRN for CONSTIPATION Torsemide (Torsemide) 20 Mg Tab 40 MG PO BID, #60 TAB 0 Refills Trazodone (Trazodone) 50 Mg Tab 50 MG PO HS for Control Depression, #30 TAB 0 Refills Walker/Adult/Folding (Walker/Adult/Folding) 1 Mis Mis EA .ROUTE DIRECTED, #1 0 Refills Warfarin (Warfarin) 5 Mg Tab 5 MG PO MON,WED,FRI,SUN for Blood Clot Prevention, #30 TAB 0 Refills Warfarin (Warfarin) 2.5 Mg Tab 2.5 MG PO TUE,RODDY,SAT for Blood Clot Prevention, #30 TAB 0 Refills Discontinued Medications: Acetaminophen-Codeine (Tylenol-Codeine #3) 300-30 mg Tab 1 TAB PO Q4H PRN for PAIN, #10 TAB 0 Refills DO NOT USE THIS MEDICINE IF YOU WILL DRIVE A CAR OR USE A MACHINE, ONLY USE IT WHEN RESTING AT HOME. Lisinopril (Lisinopril) 20 Mg Tab 20 MG PO DAILY, #30 TAB 0 Refills Lele Cat Oct 18, 2017 13:17
--- NOTE | 2017-10-18 13:19 | HHI.FF ---
Face to Face Verification Diagnosis: (1) A-fib Home Health Nursing Order: Nursing assessment with vital signs Instructions: Patient is resume Coumadin tomorrow. PT/INR done 3 times weekly for 1 week, then weekly for 3 weeks, then monthly. Results and management to be directed by patient's primary medical doctor, Dr. Moran I have seen patient Denys Sanon on 10/18/17. My clinical findings support the need for the requested home health care services because: Limited ability to care for self I certify that my clinical findings support that this patient is homebound because: Unsteady gait/balance Unsafe to leave home unassisted Lele Cat Oct 18, 2017 13:19
[2017-10-18 18:20] LABS: HEMATOCRIT 26.5 % (39.0-51.0); HEMOGLOBIN 8.4 GM/DL (13.0-17.0)
== END 2017-10-18 19:50 | disposition hospice, home (50) | DRG 813 ==
LOC: PHED 10:36 → PHEDA 12:38 → PH3A 14:15
PROVIDERS: ADMIT Hospitalist; ATTEND Hospitalist
PROC: 30233K1 Transfusion of Nonautologous Frozen Plasma into Peripheral Vein, Percutaneous Approach (ICD-10-PCS; 2017-10-14)
PROC: 30233N1 Transfusion of Nonautologous Red Blood Cells into Peripheral Vein, Percutaneous Approach (ICD-10-PCS; 2017-10-14)
PROC: 0DBL8ZX Excision of Transverse Colon, Via Natural or Artificial Opening Endoscopic, Diagnostic (ICD-10-PCS; 2017-10-17)
PROC: 0DBP8ZZ Excision of Rectum, Via Natural or Artificial Opening Endoscopic (ICD-10-PCS; 2017-10-17)
PROC: 0DB98ZX Excision of Duodenum, Via Natural or Artificial Opening Endoscopic, Diagnostic (ICD-10-PCS; 2017-10-17)
PROC: 0DB78ZX Excision of Stomach, Pylorus, Via Natural or Artificial Opening Endoscopic, Diagnostic (ICD-10-PCS; 2017-10-17)
PROC: 0DB38ZX Excision of Lower Esophagus, Via Natural or Artificial Opening Endoscopic, Diagnostic (ICD-10-PCS; 2017-10-17)
PROC: 0W3P8ZZ Control Bleeding in Gastrointestinal Tract, Via Natural or Artificial Opening Endoscopic (ICD-10-PCS; principal; 2017-10-17 07:12)
PROC: 0DBM8ZX Excision of Descending Colon, Via Natural or Artificial Opening Endoscopic, Diagnostic (ICD-10-PCS; 2017-10-17 07:12)
DX: D68.32 Hemorrhagic disorder due to extrinsic circulating anticoagulants (principal); K55.21 Angiodysplasia of colon with hemorrhage; J96.11 Chronic respiratory failure with hypoxia; E11.22 Type 2 diabetes mellitus with diabetic chronic kidney disease; I13.0 Hypertensive heart and chronic kidney disease with heart failure and stage 1 through stage 4 chronic kidney disease, or unspecified chronic kidney disease; D62 Acute posthemorrhagic anemia; I50.9 Heart failure, unspecified; Z99.81 Dependence on supplemental oxygen; N18.3 Chronic kidney disease, stage 3 (moderate); I48.2 Chronic atrial fibrillation; I25.10 Atherosclerotic heart disease of native coronary artery without angina pectoris; J44.9 Chronic obstructive pulmonary disease, unspecified; T45.515A Adverse effect of anticoagulants, initial encounter; K22.70 Barrett's esophagus without dysplasia; K21.0 Gastro-esophageal reflux disease with esophagitis; K44.9 Diaphragmatic hernia without obstruction or gangrene; K57.30 Diverticulosis of large intestine without perforation or abscess without bleeding; D12.4 Benign neoplasm of descending colon; D12.3 Benign neoplasm of transverse colon; D12.8 Benign neoplasm of rectum; K64.8 Other hemorrhoids; K64.4 Residual hemorrhoidal skin tags; E78.5 Hyperlipidemia, unspecified; M15.9 Polyosteoarthritis, unspecified; N40.0 Benign prostatic hyperplasia without lower urinary tract symptoms; G47.30 Sleep apnea, unspecified; H91.93 Unspecified hearing loss, bilateral; F32.9 Major depressive disorder, single episode, unspecified; F41.9 Anxiety disorder, unspecified; Z51.5 Encounter for palliative care; Z66 Do not resuscitate; Z79.01 Long term (current) use of anticoagulants; Z95.810 Presence of automatic (implantable) cardiac defibrillator; Z96.653 Presence of artificial knee joint, bilateral
CPT/HCPCS: 36430; 74250; 78278; 80048; 80053; 82948; 85014; 85018; 85025; 85027; 85610; 85730; 86850; 86900; 86901; 86920; 86927; 88305; 88312; 94640; 94664; 99285; A9560; C9113; J1815; J1940; J3430; J7030; J7050; J7120; P9016; P9017